=== PATIENT | female | born 1960 | race Caucasian/White ===

== ENCOUNTER 2020-01-12 06:11 | Observation (INO) | payer OTHER, SELFPAY ==
[2020-01-12] VITALS (11 sets, daily range): BP systolic 98–137; BP diastolic 42–77; PULSE 70–87; RESP 12–20; TEMP 36.4–37.2; O2SAT 92–98; BMI 54.3; BMI 42.4
--- NOTE | 2020-01-12 06:26 | XR_ITS ---
EXAMINATION: XR CHEST CLINICAL INFORMATION: Chest pain COMPARISON: 06/25/2018 TECHNIQUE: Frontal view of the chest was obtained. FINDINGS: Lung volumes are symmetric. No acute consolidation is seen. Mild opacity in the medial right lung base is favored to reflect prominent pericardial fat and atelectasis, as seen on recent abdominal CT 12/14/2019. No evidence of pneumothorax, pleural effusion, or pulmonary edema. The cardiomediastinal contour is unremarkable. No acute osseous findings are seen. IMPRESSION: No acute cardiopulmonary findings.
--- NOTE | 2020-01-12 06:27 | ECG_ITS ---
Test Reason : CHEST PAIN Blood Pressure : / mmHG Vent. Rate : 082 BPM Atrial Rate : 082 BPM P-R Int : 168 ms QRS Dur : 080 ms QT Int : 402 ms P-R-T Axes : 062 057 047 degrees QTc Int : 469 ms Normal sinus rhythm RSR' or QR pattern in V1 suggests right ventricular conduction delay Borderline ECG When compared to EKG done on 28-Dec-2018 No significant changes seen Referred By: Generic ED Physician Electronically Signed By:ELANA GOMEZ MD
[2020-01-12 06:55] LABS: MANUAL DIFF FLAG NO
[2020-01-12 07:02] LABS: Basophils Percent Auto 0.7 % (0-2); Eosinophils Absolute Auto 0.1 X10*3/uL (0.0-0.4); Hemoglobin 10.4 g/dl (12.0-16.0); Imm Gran Abs Auto 0.02 X10*3/uL (0.00-0.03); Imm Gran Pct Auto 0.3 % (0.0-0.4); Lymphocytes Percent Auto 32.7 % (20-40); Mean Corpuscular HGB Conc 33.5 g/dl (31.0-35.0); Mean Corpuscular Hemoglobin 29.3 pg (27.0-33.0); Mean Corpuscular Volume 87.3 fL (80-98); Monocytes Absolute Auto 0.4 X10*3/uL (0.1-1.2); Monocytes Percent Auto 7.2 % (2-11); Neutrophils Absolute Auto 3.5 X10*3/uL (2.0-8.3); Neutrophils Percent Auto 57.1 % (45-73); Platelet Count 167 X10*3/uL (160-400); Red Blood Count 3.55 X10*6/uL (4.20-5.50); Red Cell Distribution Width 14.8 % (11.0-16.0); White Blood Count 6.1 X10*3/uL (4.8-10.8)
[2020-01-12] MEDS: Magnesium Hydrox/Alum Hydrox 30 ML ORAL.SUSP PO (07:05)
[2020-01-12] MEDS: Famotidine/PF 20 MG/2 ML VIAL IVPUSH (07:05)
[2020-01-12] MEDS: 0.9 % Sodium Chloride 1,000 ML 999 ML IVCONT (07:06)
--- NOTE | 2020-01-12 07:17 | PC.NURSE ---
pt in nad, medicated per emar, awaiting lab results. wctm.
[2020-01-12 07:26] LABS: Anion Gap 12 (12-20); Blood Urea Nitrogen 24 mg/dL (9-16); Calcium 8.8 mg/dL (8.4-10.2); Carbon Dioxide 24 mmol/L (22-29); Chloride 104 mmol/L (96-108); Creatinine Clr Calc Pharmacy 52.7; Estimated Glomerular Filt Rate 42; Glucose Random 139 mg/dL (60-115); Potassium 3.8 mmol/l (3.3-5.1); Sodium 136 mmol/L (135-145)
[2020-01-12 07:33] LABS: Troponin-I High Sensitivity < 3.5 ng/L (<3.5-17.0)
--- NOTE | 2020-01-12 07:42 | PC.NURSE ---
EKG done by [facility] #: [id number].
--- NOTE | 2020-01-12 09:16 | CT_ITS ---
EXAMINATION: CT ANGIOGRAM OF THE CHEST WITH AND WITHOUT CONTRAST (CT PULMONARY ANGIOGRAM FOR PE) CLINICAL INFORMATION: Reason for Exam sob and hypoxia COMPARISON: Chest radiograph from today TECHNIQUE: Prior to contrast administration, noncontrast localization images were obtained. Subsequently, multidetector volumetric imaging was performed from the thoracic inlet to below the diaphragms following the administration of 65 mL Omnipaque 350 intravenous contrast. No contrast reaction reported Sagittal, coronal, and MIP oblique sagittal reformatted images were obtained on the CT workstation, uploaded to PACS, and reviewed. This CT examination was performed using dose optimization techniques as appropriate, variously including the following: *Automated exposure control *Adjustment of mA and/or kV according to patient size (this includes techniques or standardized protocols for targeted exams where dose is matched to indication/reason for exam; i.e. extremities or head) *Use of iterative reconstruction technique Total exam dose-length product 419 mGy-cm FINDINGS: QUALITY OF STUDY/CONTRAST BOLUS: Satisfactory. PULMONARY ARTERIES: No central or segmental pulmonary emboli. THORACIC AORTA: No aneurysm or dissection. LUNG: Motion limits evaluation. The central airways are patent. Peripheral groundglass opacity noted in the left upper lobe. Minimal consolidation with air bronchograms noted. PLEURA: No pleural effusion or pneumothorax. MEDIASTINUM: Normal heart size. No pericardial effusion. No hilar or mediastinal lymphadenopathy. No evidence of septal bowing or right heart strain. CHEST WALL/AXILLA: No axillary or internal mammary lymphadenopathy. OSSEOUS STRUCTURES: No acute or suspicious osseous abnormality. Degenerative changes of the spine. UPPER ABDOMEN: Unremarkable. No reflux of contrast into the hepatic veins to suggest elevated right heart pressures. IMPRESSION: 1. No pulmonary embolism. 2. Peripheral minimal groundglass opacity of the left upper lobe. This could be infectious or inflammatory. Minimal right middle lobe opacity favors atelectasis. VTE: negative
--- NOTE | 2020-01-12 09:20 | ED.ABDPAIN ---
HPI - Abdominal Pain General Chief Complaint: Chest Pain Stated Complaint: ESOPHAGUS Time Seen by Provider: 01/12/20 06:53 Source: patient Mode of arrival: ambulatory Limitations: no limitations History of Present Illness MD elicited complaint: abdominal pain Pertinent past history: other ( history of esophagitis) Onset (ago): day(s) (1) Pain Consistency: constant Location: epigastric Severity: moderate Quality: dull Radiation: none Migration to: no migration Exacerbating factors: nothing Relieving factors: nothing Associated symptoms: denies other symptoms and nausea Related Data Allergies Allergy/AdvReac Type Severity Reaction Status Date / Time hydrocodone [From Vicodin] Allergy Mild ITCHING Verified 01/12/20 06:30 SHANAE Inhibitors Allergy Unknown UNKNOWN Verified 01/12/20 06:30 [SHANAE INHIBITORS] acetaminophen [Vicodin] Allergy Unknown Unknown Verified 01/12/20 06:30 ENVIROMENTAL Allergy Mild HAYFEVER Uncoded 12/15/19 16:01 [place] Allergy Unknown NEPHROPATHY Uncoded 09/28/19 00:00 Vicodin Allergy Unknown Unknown Uncoded 01/12/20 06:30 yeast Allergy Unknown Unknown Uncoded 01/12/20 06:30 Review of Systems Review of Systems Yes all other systems are reviewed and are negative and Other ( no recent travel, no recent prolonged immobilization, no swelling LE.) Cardiovascular: Reports no additional cardiovascular complaints Respiratory: Reports no additional respiratory complaints Gastrointestinal: Reports no additional gastrointestinal complaints Genitourinary: Reports no additional female genitourinary complaints Musculoskeletal: Reports no additional musculoskeletal complaints Reports system reviewed and no additional complaints, except as documented Physical Exam Vital Signs: Vital Signs: Vital Signs Temp Pulse Resp BP Pulse Ox 01/12/20 12:00 98.3 F 87 14 129/56 L 97 01/12/20 06:32 98 F 83 18 98/44 L 96 Body Mass Index 54.3 Const: General: cooperative and healthy appearing Orientation/consciousness: oriented to person HENMT: Head: Yes normal to inspection and Yes No palpable skull fracture present Eyes: General: appearance normal, both eyes and all related structures Neck: Neck: Yes normal visual inspection Chest: Chest palpation & inspection: normal inspection of the chest Resp: Effort & Inspection: normal respiratory effort Cardio: Jugular venous distension: no JVD GI: Inspection: Yes normal to inspection Palpation (GI): Tenderness to palpation present (GI) in the epigastrum Percussion: Yes normal to percussion : General: Yes no CVA tenderness Back/Spine/Pelvis: Back: no CVA tenderness Skin: General skin exam: no rashes or lesions noted Neuro: General: oriented to person Cranial nerves: Yes CN's II-XII intact bilaterally Cognition (Neuro): normal cognition Motor exam (neuro): 5/5 motor strength present throughout Sensory Exam: Normal double simultaneous stimulation for sensation Course Course Course Narrative: 59-YEAR-OLD FEMALE CAME IN WITH EPIGASTRIC PAIN with a history of esophagitis, patient had unremarkable labs, and felt better with GI cocktail, patient tried to walk to the bathroom felt short of breath and her O2 saturation went down to 78% patient declined any upper respiratory symptoms or any history of exertional dyspnea, in light of acute surge of COVID 19 outbreak and a negative CTA/D-dimer patient will get admitted for COVID pneumonia with hypoxia Reevaluation(s) Reevaluation #1: findings were discussed with the patient patient will get admitted. Patient appears stable. MDM - Abdominal Pain Differential Diagnosis Differential diagnosis: Likely abdominal pain and gastritis Differential diagnosis narrative:: COVID-19 pneumonia. Esophagitis. Medical Records Attestation: I reviewed the patient's medical records. Lab Data Attestation: I reviewed the patient's lab results. Result diagrams: 01/12/20 06:51 01/12/20 06:51 Labs: Lab Results 01/12/20 01/12/20 01/12/20 Range/Units 06:51 06:51 06:51 WBC 6.1 (4.8-10.8) X10*3/uL RBC 3.55 L (4.20-5.50) X10*6/uL Hgb 10.4 L (12.0-16.0) g/dl Hct 31.0 L (37-47) % MCV 87.3 (80-98) fL MCH 29.3 (27.0-33.0) pg MCHC 33.5 (31.0-35.0) g/dl RDW 14.8 (11.0-16.0) % Plt Count 167 (160-400) X10*3/uL MPV 9.0 L (9.4-12.3) fL Immature Gran % (Auto) 0.3 (0.0-0.4) % Neut % (Auto) 57.1 (45-73) % Lymph % (Auto) 32.7 (20-40) % [place] % (Auto) 7.2 (2-11) % Eos % (Auto) 2.0 (0-4) % Baso % (Auto) 0.7 (0-2) % Lymph # (Auto) 2.0 (1.2-4.9) X10*3/uL [place] # (Auto) 0.4 (0.1-1.2) X10*3/uL Eos # (Auto) 0.1 (0.0-0.4) X10*3/uL Baso # (Auto) 0.0 (0.0-0.2) X10*3/uL Abs Immat Gran (auto) 0.02 (0.00-0.03) X10*3/uL Absolute Neuts (auto) 3.5 (2.0-8.3) X10*3/uL Absolute Nucleated RBC 0.000 (0.0-0.012) X10*3/uL Nucleated RBC % (auto) 0.0 (0.0-0.2) /100WBC D-Dimer < 200 NG/ML Hold Blue Top SEE NOTE Sodium 136 (135-145) mmol/L Potassium 3.8 (3.3-5.1) mmol/l Chloride 104 (96-108) mmol/L Carbon Dioxide 24 (22-29) mmol/L Anion Gap 12 (12-20) BUN 24 H (9-16) mg/dL Creatinine 1.30 (0.5-1.4) mg/dL Estim Creat Clear Calc 52.7 Estimated GFR 42 Random Glucose 139 H (60-115) mg/dL Calcium 8.8 (8.4-10.2) mg/dL Troponin I High Sens (<3.5-17.0) ng/L 01/12/20 01/12/20 Range/Units 06:51 08:52 WBC (4.8-10.8) X10*3/uL RBC (4.20-5.50) X10*6/uL Hgb (12.0-16.0) g/dl Hct (37-47) % MCV (80-98) fL MCH (27.0-33.0) pg MCHC (31.0-35.0) g/dl RDW (11.0-16.0) % Plt Count (160-400) X10*3/uL MPV (9.4-12.3) fL Immature Gran % (Auto) (0.0-0.4) % Neut % (Auto) (45-73) % Lymph % (Auto) (20-40) % [place] % (Auto) (2-11) % Eos % (Auto) (0-4) % Baso % (Auto) (0-2) % Lymph # (Auto) (1.2-4.9) X10*3/uL [place] # (Auto) (0.1-1.2) X10*3/uL Eos # (Auto) (0.0-0.4) X10*3/uL Baso # (Auto) (0.0-0.2) X10*3/uL Abs Immat Gran (auto) (0.00-0.03) X10*3/uL Absolute Neuts (auto) (2.0-8.3) X10*3/uL Absolute Nucleated RBC (0.0-0.012) X10*3/uL Nucleated RBC % (auto) (0.0-0.2) /100WBC D-Dimer NG/ML Hold Blue Top Sodium (135-145) mmol/L Potassium (3.3-5.1) mmol/l Chloride (96-108) mmol/L Carbon Dioxide (22-29) mmol/L Anion Gap (12-20) BUN (9-16) mg/dL Creatinine (0.5-1.4) mg/dL Estim Creat Clear Calc Estimated GFR Random Glucose (60-115) mg/dL Calcium (8.4-10.2) mg/dL Troponin I High Sens < 3.5 < 3.5 (<3.5-17.0) ng/L ECG Data Attestation: I personally reviewed and interpreted this ECG as follows: Ischemic changes: other ( Normal sinus rhythm at 82 beats per minutes, no ST-T changes, normal axis.) Discharge Plan Discharge Clinical Impression: Acute epigastric pain, Esophagitis, Hypoxia Patient Disposition: Admitted As Inpatient [facility] Past Medical History Attestation statement: The following information was validated with the patient. Medical History (Updated 01/12/20 @ 12:40 by Jossie Muhammad MD) Asthma COPD (chronic obstructive pulmonary disease) Diabetes Renal failure Seizures Social History Social History Alcohol intake: never Smoking Status: Light tobacco smoker Use of substances other than those prescribed or required for medical reasons: No Advance Directives: No Advance Directives Information Provided: No
[2020-01-12 09:32] LABS: Troponin-I High Sensitivity < 3.5 ng/L (<3.5-17.0)
[2020-01-12 10:38] LABS: D Dimer < 200 NG/ML
[2020-01-12] MEDS: iohexoL 350 MG/ML 100 ML INFUS..BTL IV (10:58)
--- NOTE | 2020-01-12 12:09 | PC.NURSE ---
INTRODUCED SELF TO PT. DRY COUGH, SPO2 DOWN TO 86% ON RA WITH GOOD SPO2 WAVEFORM, PLACED ON 3L O2. NOW ON 1L O2. PT DENIES ANY PAIN, FEVERS, DIZZINESS. SKIN PWD. SPEAKING IN CLEAR FULL SENTENCES. RESP E3VEN BUT SLIGHTLY LABOURED, PT CONFIRMS FEELING SOB.
--- NOTE | 2020-01-12 12:12 | PC.NURSE ---
SLIGHT WHEEZING HEARD IN LOWER LOBES BILAT, UPPER LOBES DIMINISHED.
[2020-01-12 13:03] LABS: Alanine Aminotransferase 10 U/L (0-31); Albumin Level 3.6 g/dL (3.5-5.0); Alkaline Phosphatase 97 U/L (39-117); Aspartate Amino Transferase 11 U/L (5-31); Bilirubin Direct < 0.2 mg/dL (0.0-0.5); Bilirubin Total 0.4 mg/dL (0.0-1.0); Lipase 34 U/L (8-78); Total Protein 6.2 g/dL (6.5-8.0)
[2020-01-12 13:38] LABS: SARS COV2 PCR INHOUSE NEGATIVE (Negative)
[2020-01-12 14:00] LABS: Alanine Aminotransferase 10 U/L (0-31); Albumin Level 3.6 g/dL (3.5-5.0); Alkaline Phosphatase 93 U/L (39-117); Aspartate Amino Transferase 13 U/L (5-31); Bilirubin Direct < 0.2 mg/dL (0.0-0.5); Bilirubin Total 0.2 mg/dL (0.0-1.0); C Reactive Protein 1.29 mg/dL (< or = 0.50); Lactate Dehydrogenase 126 U/L (122-220); Lipase 34 U/L (8-78); Total Protein 6.5 g/dL (6.5-8.0)
[2020-01-12 14:20] LABS: Ferritin 18 ng/mL (10-250)
[2020-01-12 14:31] LABS: Procalcitonin 0.08 ng/mL
--- NOTE | 2020-01-12 14:37 | PC.NURSE ---
PAIN DENIES ANY PAIN, AWARE OF PLAN FOR ADMISSION. PHARMACY TO BE CALLED FOR MED REC
--- NOTE | 2020-01-12 14:41 | PM.EVENT ---
Event Note Event Note: Patient seen and examined independently and was present during mancini portion of E/M service. Agree with midlevel's history, physical, assessment, and plan. 59F presented with sob and abdominal pain acute hyopxic respiratory failure due to copd exacerbation steroid, bronchidilators, check abg, viral panel covid negative
--- NOTE | 2020-01-12 14:48 | PC.NURSE ---
RT CALLED FOR ABGS
[2020-01-12 15:04] LABS: Pt Ventilation O2% 1 L
[2020-01-12 15:16] LABS: ABG PCO2 47 mmhg (32-45); Base Excess ABG -4.3; HCO3 ABG 22 mmol/l (22-26); PO2 ABG 111 mmhg (83-108)
[2020-01-12 15:17] LABS: Blood Gas Serial # 5414; Oxygen Saturation ABG 97.5 %
--- NOTE | 2020-01-12 15:43 | P.HPIM_ITS ---
History of Present Illness Date of Service: 01/12/20 <YUDITH De Paz - Last Filed: 01/12/20 15:54> Chief Complaint: Epigastric abdominal pain <YUDITH De Paz - Last Filed: 01/12/20 15:54> this is a 59-year-old female with multiple medical problems who presented to the emergency department with complaints of epigastric abdominal pain. her EKG was unremarkable in cardiac enzymes were negative. However while in the emergency department she became hypoxic after ambulating back from the bathroom. Her oxygen saturation dropped to 86% on room air. D-dimer was unremarkable. She underwent CTA which showed minimal ground-glass opacity in the left upper lobe. Lab work was unremarkable. patient reports she always has a smoker's cough. she does not complain of any significant shortness of breath. She denies any associated fever or chills. She does report that her daughter was recently diagnosed with bronchitis and was tested for coronavirus but the results is still pending. Patient had a rapid COVID swab in the ED which was negative. Given episode of hypoxia and the decision was made to admit her for management. <YUDITH De Paz - Last Filed: 01/12/20 15:54> Review of Systems Review of Systems: Yes all other systems are reviewed and are negative <YUDITH De Paz - Last Filed: 01/12/20 15:54> Constitutional: Constitutional: Denies chills and Denies fever(s) <YUDITH De Paz - Last Filed: 01/12/20 15:54> Cardiovascular: Cardiovascular: Denies chest pain <YUDITH De Paz Last Filed: 01/12/20 15:54> Respiratory: Respiratory: Reports cough <YUDITH De Paz - Last Filed: 01/12/20 15:54> Gastrointestinal: Gastrointestinal: Denies abdominal pain <YUDITH De Paz - Last Filed: 01/12/20 15:54> [facility] Medical History: Medical History Asthma COPD (chronic obstructive pulmonary disease) Diabetes GERD (gastroesophageal reflux disease) History of migraine Hyperlipidemia Hypertension Osteoarthritis Renal failure Restless leg syndrome Seizures TIA (transient ischemic attack) <YUDITH De Paz - Last Filed: 01/12/20 15:54> Pertinent family history: mother and father had a history of diabetes <YUDITH De Paz - Last Filed: 01/12/20 15:54> Surgical History: Surgical History History of appendectomy History of carpal tunnel release History of cholecystectomy Hx of total knee arthroplasty <YUDITH De Paz - Last Filed: 01/12/20 15:54> Social History: Social History Alcohol intake: never Smoking Status: Current every day smoker Tobacco Type: Cigarette Packs Per Day: 1 Cigarettes Per Day: 20.0 Smoked in Last 30 Days: Yes Patient Interested in Nicotine Replacement: No Use of substances other than those prescribed or required for medical reasons: No Advance Directives: No Advance Directives Information Provided: No service: No Current occupational status: disabled <YUDITH De Paz - Last Filed: 01/12/20 15:54> Meds Allergies/Adverse reactions: Allergies Allergy/AdvReac Type Severity Reaction Status Date / Time hydrocodone [From Vicodin] Allergy Mild ITCHING Verified 01/12/20 06:30 SHANAE Inhibitors Allergy Unknown UNKNOWN Verified 01/12/20 06:30 [SHANAE INHIBITORS] acetaminophen [Vicodin] Allergy Unknown Unknown Verified 01/12/20 06:30 ENVIROMENTAL Allergy Mild HAYFEVER Uncoded 12/15/19 16:01 [place] Allergy Unknown NEPHROPATHY Uncoded 09/28/19 00:00 Vicodin Allergy Unknown Unknown Uncoded 01/12/20 06:30 yeast Allergy Unknown Unknown Uncoded 01/12/20 06:30 <YUDITH De Paz - Last Filed: 01/12/20 15:54> Home medications: Home Medications Medication Instructions Recorded Confirmed Type Flovent HFA 2 puff INHALATION BID 01/12/20 01/12/20 History Januvia 1 tab PO QAM 01/12/20 01/12/20 History Lantus Solostar U-100 Insulin 30 unit SUBCUT BEDTIME 01/12/20 01/12/20 History amlodipine 1 tab PO BEDTIME 01/12/20 01/12/20 History ascorbic acid (vitamin C) [Vitamin 1 tab PO BID 01/12/20 01/12/20 History C] aspirin 1 tab PO BEDTIME 01/12/20 01/12/20 History atorvastatin 1 tab PO BEDTIME 01/12/20 01/12/20 History calcium carbonate-vitamin D3 1 tab PO BID 01/12/20 01/12/20 History cetirizine 1 tab PO QAM 01/12/20 01/12/20 History cholecalciferol (vitamin D3) 1 cap PO QAM 01/12/20 01/12/20 History citalopram 1 tab PO QAM 01/12/20 01/12/20 History fluticasone propionate 2 spray INTRANASAL DAILY 01/12/20 01/12/20 History gabapentin 1 cap PO TID 01/12/20 01/12/20 History insulin aspart U-100 [Novolog See Protocol SUBCUT TID 01/12/20 01/12/20 History Flexpen U-100 Insulin] olmesartan 1 tab PO QAM 01/12/20 01/12/20 History omeprazole 1 cap PO QAM 01/12/20 01/12/20 History oxcarbazepine 1 tab PO BID 01/12/20 01/12/20 History oxybutynin chloride 1 tab PO QAM 01/12/20 01/12/20 History topiramate 1 tab PO BID 01/12/20 01/12/20 History <YUDITH De Paz - Last Filed: 01/12/20 15:54> Physical Exam Vital Signs and Narrative: Vital Signs: Last Vital Signs Temp 98.9 F 01/12/20 14:36 Pulse 87 01/12/20 14:36 Resp 16 01/12/20 14:36 BP 115/42 L 01/12/20 14:36 Pulse Ox 98 01/12/20 14:36 Body Mass Index 54.3 <YUDITH De Paz - Last Filed: 01/12/20 15:54> Const: Nutritional Appearance: obese <YUDITH De Paz - Last Filed: 01/12/20 15:54> Orientation/consciousness: patient oriented x3 <YUDITH De Paz - Last Filed: 01/12/20 15:54> HENMT: Head: Yes normocephalic and Yes atraumatic <YUDITH De Paz - Last Filed: 01/12/20 15:54> Eyes: Sclerae: sclerae normal <YUDITH De Paz - Last Filed: 01/12/20 15:54> Chest: Chest palpation & inspection: normal inspection of the chest <YUDITH De Paz - Last Filed: 01/12/20 15:54> Resp: Auscultation: wheezes expiratory wheezes <YUDITH De Paz - Last Filed: 01/12/20 15:54> Cardio: Rate: regular rate <YUDITH De Paz - Last Filed: 01/12/20 15:54> Rhythm: regular rhythm <YUDITH De Paz - Last Filed: 01/12/20 15:54> GI: Palpation (GI): Soft to palpation and nontender <YUDITH De Paz - Last Filed: 01/12/20 15:54> Skin: General skin exam: no rashes or lesions noted <YUDITH De Paz - Last Filed: 01/12/20 15:54> Neuro: General: patient oriented x3 <YUDITH De Paz - Last Filed: 01/12/20 15:54> Cranial nerves: Yes CN's II-XII intact bilaterally and Yes Bilaterally intact EOM present <YUDITH De Paz - Last Filed: 01/12/20 15:54> Extrem: General: Yes normal to inspection <YUDITH De Paz - Last Filed: 01/12/20 15:54> Results Labs Labs: Laboratory Tests 01/12/20 01/12/20 01/12/20 06:51 06:51 06:51 WBC 6.1 RBC 3.55 L Hgb 10.4 L Hct 31.0 L MCV 87.3 MCH 29.3 MCHC 33.5 RDW 14.8 Plt Count 167 MPV 9.0 L Immature Gran % (Auto) 0.3 Neut % (Auto) 57.1 Lymph % (Auto) 32.7 [place] % (Auto) 7.2 Eos % (Auto) 2.0 Baso % (Auto) 0.7 Lymph # (Auto) 2.0 [place] # (Auto) 0.4 Eos # (Auto) 0.1 Baso # (Auto) 0.0 Abs Immat Gran (auto) 0.02 Absolute Neuts (auto) 3.5 Absolute Nucleated RBC 0.000 Nucleated RBC % (auto) 0.0 D-Dimer < 200 Hold Blue Top SEE NOTE ABG pH ABG pCO2 ABG pO2 ABG HCO3 ABG O2 Saturation ABG Base Excess Oxygen Given Sodium 136 Potassium 3.8 Chloride 104 Carbon Dioxide 24 Anion Gap 12 BUN 24 H Creatinine 1.30 Estim Creat Clear Calc 52.7 Estimated GFR 42 Random Glucose 139 H Calcium 8.8 Ferritin 18 Total Bilirubin 0.2 Direct Bilirubin < 0.2 AST 13 ALT 10 Alkaline Phosphatase 93 Lactate Dehydrogenase 126 Troponin I High Sens C-Reactive Protein 1.29 H Total Protein 6.5 Albumin 3.6 Lipase 34 Procalcitonin Coronavirus (PCR) 01/12/20 01/12/20 01/12/20 06:51 08:52 12:14 WBC RBC Hgb Hct MCV MCH MCHC RDW Plt Count MPV Immature Gran % (Auto) Neut % (Auto) Lymph % (Auto) [place] % (Auto) Eos % (Auto) Baso % (Auto) Lymph # (Auto) [place] # (Auto) Eos # (Auto) Baso # (Auto) Abs Immat Gran (auto) Absolute Neuts (auto) Absolute Nucleated RBC Nucleated RBC % (auto) D-Dimer Hold Blue Top ABG pH ABG pCO2 ABG pO2 ABG HCO3 ABG O2 Saturation ABG Base Excess Oxygen Given Sodium Potassium Chloride Carbon Dioxide Anion Gap BUN Creatinine Estim Creat Clear Calc Estimated GFR Random Glucose Calcium Ferritin Total Bilirubin Direct Bilirubin AST ALT Alkaline Phosphatase Lactate Dehydrogenase Troponin I High Sens < 3.5 < 3.5 C-Reactive Protein Total Protein Albumin Lipase Procalcitonin Coronavirus (PCR) NEGATIVE 01/12/20 01/12/20 01/12/20 12:15 13:46 14:55 WBC RBC Hgb Hct MCV MCH MCHC RDW Plt Count MPV Immature Gran % (Auto) Neut % (Auto) Lymph % (Auto) [place] % (Auto) Eos % (Auto) Baso % (Auto) Lymph # (Auto) [place] # (Auto) Eos # (Auto) Baso # (Auto) Abs Immat Gran (auto) Absolute Neuts (auto) Absolute Nucleated RBC Nucleated RBC % (auto) D-Dimer Hold Blue Top ABG pH 7.30 L ABG pCO2 47 H ABG pO2 111 H ABG HCO3 22 ABG O2 Saturation 97.5 ABG Base Excess -4.3 Oxygen Given 1 L Sodium Potassium Chloride Carbon Dioxide Anion Gap BUN Creatinine Estim Creat Clear Calc Estimated GFR Random Glucose Calcium Ferritin Total Bilirubin 0.4 Direct Bilirubin < 0.2 AST 11 ALT 10 Alkaline Phosphatase 97 Lactate Dehydrogenase Troponin I High Sens C-Reactive Protein Total Protein 6.2 L Albumin 3.6 Lipase 34 Procalcitonin 0.08 Coronavirus (PCR) <YUDITH De Paz - Last Filed: 01/12/20 15:54> Assessment and Plan (1) Acute respiratory failure with hypoxia: Status: Acute <YUDITH De Paz - Last Filed: 01/12/20 15:54> this is a 59-year-old female with history of diabetes, hypertension, hyperlipidemia, seizure disorder who presented to the emergency department with epigastric abdominal pain found to have be hypoxic acute respiratory failure with hypoxia O2 saturation dropped to 86% on room air likely multifactorial and related to COPD exacerbation and body habitus given morbid obesity with BMI 54.3 COVID-19 negative COPD exacerbation scheduled and as needed breathing treatments Solu-Medrol supplemental oxygen as needed tobacco dependence smoking cessation advised nicotine replacement therapy diabetes continue home dose of Lantus SSI, POC hypertension continue Norvasc, formulary equivalent for olmesartan dyslipidemia continue statin mood continue Celexa seizure disorder continue Trileptal seizure precautions restless leg syndrome continue gabapentin DVT prophylaxis- heparin code status- full code this case was discussed with Dr. Stafford <YUDITH De Paz - Last Filed: 01/12/20 15:54>
--- NOTE | 2020-01-12 15:43 | PC.NURSE ---
meds confirmed with pt. pt resting comfortably at this time. denies pain, sob at this time. aware of plan for care.
--- NOTE | 2020-01-12 16:32 | PC.NURSE ---
called up to c
--- NOTE | 2020-01-12 17:18 | PC.NURSE ---
pt ambulated to bathroom independently.
--- NOTE | 2020-01-12 17:32 | PC.NURSE ---
report given to guadalupe
[2020-01-12 18:55] LABS: Glucose, Whole Blood 106 mg/dL (60-115)
[2020-01-12] MEDS: Albuterol/Iprat 2.5/0.5MG 3 ML AMPUL.NEB INHALE (20:00)
[2020-01-12] MEDS: Atorvastatin Calcium 40 MG TABLET PO (20:01)
[2020-01-12] MEDS: Gabapentin 400 MG CAPSULE PO (20:02)
[2020-01-12] MEDS: Ascorbic Acid 500 MG TABLET PO (20:02)
[2020-01-12] MEDS: Aspirin Enteric Coated 81 MG TABLET.DR PO (20:02)
[2020-01-12] MEDS: amLODIPine Besylate 10 MG TABLET PO (20:02)
[2020-01-12] MEDS: 0.9 % Sodium Chloride Flush 3 ML SYRINGE IVFLUSH ×2 (20:04→23:47)
[2020-01-12] MEDS: Heparin Sodium,Porcine 5,000 UNIT/ML VIAL 5000 UNIT SUBCUT (20:06)
[2020-01-12 21:20] LABS: Glucose, Whole Blood 136 mg/dL (60-115)
[2020-01-12] MEDS: Topiramate 25 MG TABLET 50 MG PO (21:49)
[2020-01-12] MEDS: OXcarbazepine 150 MG TABLET PO (21:49)
[2020-01-13 04:00] VITALS: BP 126/58; PULSE 74; RESP 20; TEMP 36.7; O2SAT 95
[2020-01-13 05:39] LABS: Basophils Percent Auto 0.3 % (0-2); Eosinophils Percent Auto 0.3 % (0-4); Hematocrit 32.5 % (37-47); Hemoglobin 10.5 g/dl (12.0-16.0); Imm Gran Abs Auto 0.01 X10*3/uL (0.00-0.03); Imm Gran Pct Auto 0.3 % (0.0-0.4); Lymphocytes Absolute Auto 0.5 X10*3/uL (1.2-4.9); Lymphocytes Percent Auto 13.4 % (20-40); MANUAL DIFF FLAG SCAN; Mean Corpuscular HGB Conc 32.3 g/dl (31.0-35.0); Mean Corpuscular Hemoglobin 28.7 pg (27.0-33.0); Mean Corpuscular Volume 88.8 fL (80-98); Mean Platelet Volume 9.3 fL (9.4-12.3); Monocytes Absolute Auto 0.1 X10*3/uL (0.1-1.2); Monocytes Percent Auto 2.1 % (2-11); Neutrophils Absolute Auto 2.8 X10*3/uL (2.0-8.3); Neutrophils Percent Auto 83.6 % (45-73); Platelet Count 160 X10*3/uL (160-400); Red Blood Count 3.66 X10*6/uL (4.20-5.50); Red Cell Distribution Width 14.7 % (11.0-16.0); SCAN SMEAR FLAG 1; White Blood Count 3.4 X10*3/uL (4.8-10.8)
[2020-01-13 06:05] LABS: Anion Gap 12 (12-20); Blood Urea Nitrogen 20 mg/dL (9-16); Calcium 8.8 mg/dL (8.4-10.2); Carbon Dioxide 20 mmol/L (22-29); Chloride 108 mmol/L (96-108); Creatinine Clr Calc Pharmacy 51.4; Estimated Glomerular Filt Rate 49; Glucose Random 201 mg/dL (60-115); Potassium 4.7 mmol/l (3.3-5.1); Sodium 135 mmol/L (135-145)
[2020-01-13 06:13] LABS: SLIDE REVIEW VERIFIED
[2020-01-13] MEDS: Omeprazole 20 MG CAPSULE.DR PO (06:28)
[2020-01-13 07:34] LABS: Glucose, Whole Blood 143 mg/dL (60-115)
[2020-01-13] MEDS: Albuterol/Iprat 2.5/0.5MG 3 ML AMPUL.NEB INHALE ×2 (07:56→11:48)
[2020-01-13 08:00] VITALS: BP 116/56; PULSE 74; RESP 18; TEMP 36.4; O2SAT 95
--- NOTE | 2020-01-13 08:42 | MHC.CM.PN ---
Patient lives alone in an apartment but her Daughter will be staying with her at time of dc to assist her. Patient does NOT use O2 @ home and she receives 16 hours/week of [facility] services. Patient has a power chair for distance and a cane and walker. Patient's goal is to return home and CM has initiated and will follow for dc planning.IMM addressed with Patient and original has been given to her and a copy has been placed on the chart.
[2020-01-13] MEDS: Topiramate 25 MG TABLET 50 MG PO (09:27)
[2020-01-13] MEDS: Nicotine 14 MG PATCH.TD24 TRANSDERMA (09:27)
[2020-01-13] MEDS: Valsartan 160 MG TABLET PO (09:27)
[2020-01-13] MEDS: Ascorbic Acid 500 MG TABLET PO (09:27)
[2020-01-13] MEDS: Escitalopram Oxalate 10 MG TABLET PO (09:27)
[2020-01-13] MEDS: OXcarbazepine 150 MG TABLET PO (09:27)
[2020-01-13] MEDS: Gabapentin 400 MG CAPSULE PO (09:27)
[2020-01-13] MEDS: Heparin Sodium,Porcine 5,000 UNIT/ML VIAL 5000 UNIT SUBCUT (09:28)
[2020-01-13] MEDS: 0.9 % Sodium Chloride Flush 3 ML SYRINGE IVFLUSH (09:29)
[2020-01-13] MEDS: Fluticasone Propionate Nasal 16 GM SPRAY 2 SPRAY NOSTRIL-B (09:38)
[2020-01-13] MEDS: Loratadine 10 MG TABLET PO (09:55)
[2020-01-13 10:15] VITALS: O2SAT 92
--- NOTE | 2020-01-13 10:46 | PM.DS ---
DS: Providers Provider Date of admission: 01/12/20 15:41 Primary care physician: Inez Dewitt NP DS: Diagnosis Discharge Diagnosis (1) Acute respiratory failure with hypoxia: Status: Acute DS: Summary Hospital Course Hospital Course: from initial h and p 59-year-old female with multiple medical problems who presented to the emergency department with complaints of epigastric abdominal pain. her EKG was unremarkable in cardiac enzymes were negative. However while in the emergency department she became hypoxic after ambulating back from the bathroom. Her oxygen saturation dropped to 86% on room air. D-dimer was unremarkable. She underwent CTA which showed minimal ground-glass opacity in the left upper lobe. Lab work was unremarkable. patient reports she always has a smoker's cough. she does not complain of any significant shortness of breath. She denies any associated fever or chills. She does report that her daughter was recently diagnosed with bronchitis and was tested for coronavirus but the results is still pending. Patient had a rapid COVID swab in the ED which was negative. Given episode of hypoxia and the decision was made to admit her for management. hospital course: Patient was admitted for acute hypoxic respiratory failure likely secondary to COPD/ asthma exacerbation. She was given steroids and bronchodilators and symptoms significantly improved. Patient was able to ambulate without significant hypoxia and without significant symptoms. She will be discharged home on 5 more days of p.o. prednisone. Time Spent with Patient Time attestation: Total time spent providing and/or coordinating discharge services: Physical Exam Vital Signs: Vital Signs: Vital Signs Temp Pulse Resp BP Pulse Ox 01/13/20 10:15 92 01/13/20 08:00 97.6 F 74 18 116/56 L 95 01/13/20 04:00 98.1 F 74 20 126/58 L 95 01/12/20 23:51 99 F 82 20 137/60 94 01/12/20 19:54 97.6 F 80 20 135/68 96 01/12/20 18:58 70 01/12/20 18:29 98.2 F 76 20 126/58 L 92 01/12/20 17:47 98.4 F 79 18 118/62 92 01/12/20 15:44 77 12 124/77 01/12/20 14:36 98.9 F 87 16 115/42 L 98 01/12/20 12:00 98.3 F 87 14 129/56 L 97 Body Mass Index 42.4 Resp: Other: diminished, slight wheeze, no increased resp effort, speaking full sentences DS: Data Data Completed and Pending Labs on day of discharge: Labs from last 24 hours 01/13/20 01/13/20 01/13/20 07:23 04:33 04:33 WBC 3.4 L RBC 3.66 L Hgb 10.5 L Hct 32.5 L MCV 88.8 MCH 28.7 MCHC 32.3 RDW 14.7 Plt Count 160 MPV 9.3 L Immature Gran % (Auto) 0.3 Neut % (Auto) 83.6 H Lymph % (Auto) 13.4 L [place] % (Auto) 2.1 Eos % (Auto) 0.3 Baso % (Auto) 0.3 Lymph # (Auto) 0.5 L [place] # (Auto) 0.1 Eos # (Auto) 0.0 Baso # (Auto) 0.0 Abs Immat Gran (auto) 0.01 Absolute Neuts (auto) 2.8 Absolute Nucleated RBC 0.000 Nucleated RBC % (auto) 0.0 Smear Tech's Comments VERIFIED ABG pH ABG pCO2 ABG pO2 ABG HCO3 ABG O2 Saturation ABG Base Excess Oxygen Given Sodium 135 Potassium 4.7 D Chloride 108 Carbon Dioxide 20 L Anion Gap 12 BUN 20 H Creatinine 1.14 Estim Creat Clear Calc 51.4 Estimated GFR 49 POC Glucose 143 H Random Glucose 201 H D Calcium 8.8 Ferritin Total Bilirubin Direct Bilirubin AST ALT Alkaline Phosphatase Lactate Dehydrogenase C-Reactive Protein Total Protein Albumin Lipase Procalcitonin Coronavirus (PCR) 01/12/20 01/12/20 01/12/20 21:10 18:51 14:55 WBC RBC Hgb Hct MCV MCH MCHC RDW Plt Count MPV Immature Gran % (Auto) Neut % (Auto) Lymph % (Auto) [place] % (Auto) Eos % (Auto) Baso % (Auto) Lymph # (Auto) [place] # (Auto) Eos # (Auto) Baso # (Auto) Abs Immat Gran (auto) Absolute Neuts (auto) Absolute Nucleated RBC Nucleated RBC % (auto) Smear Tech's Comments ABG pH 7.30 L ABG pCO2 47 H ABG pO2 111 H ABG HCO3 22 ABG O2 Saturation 97.5 ABG Base Excess -4.3 Oxygen Given 1 L Sodium Potassium Chloride Carbon Dioxide Anion Gap BUN Creatinine Estim Creat Clear Calc Estimated GFR POC Glucose 136 H 106 Random Glucose Calcium Ferritin Total Bilirubin Direct Bilirubin AST ALT Alkaline Phosphatase Lactate Dehydrogenase C-Reactive Protein Total Protein Albumin Lipase Procalcitonin Coronavirus (PCR) 01/12/20 01/12/20 01/12/20 13:46 12:15 12:14 WBC RBC Hgb Hct MCV MCH MCHC RDW Plt Count MPV Immature Gran % (Auto) Neut % (Auto) Lymph % (Auto) [place] % (Auto) Eos % (Auto) Baso % (Auto) Lymph # (Auto) [place] # (Auto) Eos # (Auto) Baso # (Auto) Abs Immat Gran (auto) Absolute Neuts (auto) Absolute Nucleated RBC Nucleated RBC % (auto) Smear Tech's Comments ABG pH ABG pCO2 ABG pO2 ABG HCO3 ABG O2 Saturation ABG Base Excess Oxygen Given Sodium Potassium Chloride Carbon Dioxide Anion Gap BUN Creatinine Estim Creat Clear Calc Estimated GFR POC Glucose Random Glucose Calcium Ferritin Total Bilirubin 0.4 Direct Bilirubin < 0.2 AST 11 ALT 10 Alkaline Phosphatase 97 Lactate Dehydrogenase C-Reactive Protein Total Protein 6.2 L Albumin 3.6 Lipase 34 Procalcitonin 0.08 Coronavirus (PCR) NEGATIVE 01/12/20 06:51 WBC RBC Hgb Hct MCV MCH MCHC RDW Plt Count MPV Immature Gran % (Auto) Neut % (Auto) Lymph % (Auto) [place] % (Auto) Eos % (Auto) Baso % (Auto) Lymph # (Auto) [place] # (Auto) Eos # (Auto) Baso # (Auto) Abs Immat Gran (auto) Absolute Neuts (auto) Absolute Nucleated RBC Nucleated RBC % (auto) Smear Tech's Comments ABG pH ABG pCO2 ABG pO2 ABG HCO3 ABG O2 Saturation ABG Base Excess Oxygen Given Sodium Potassium Chloride Carbon Dioxide Anion Gap BUN Creatinine Estim Creat Clear Calc Estimated GFR POC Glucose Random Glucose Calcium Ferritin 18 Total Bilirubin 0.2 Direct Bilirubin < 0.2 AST 13 ALT 10 Alkaline Phosphatase 93 Lactate Dehydrogenase 126 C-Reactive Protein 1.29 H Total Protein 6.5 Albumin 3.6 Lipase 34 Procalcitonin Coronavirus (PCR) Discharge Plan Discharge Patient Disposition: Home, Self-Care Referrals: Inez Dewitt NP [Primary Care Provider] - Discharge Medications: New prednisone 20 mg tablet 40 mg PO DAILY Qty: 10 RF: 0 Continued gabapentin 400 mg capsule 1 cap PO TID RF: 0 oxcarbazepine 150 mg tablet 1 tab PO BID RF: 0 aspirin 81 mg tablet,delayed release (DR/EC) 1 tab PO BEDTIME RF: 0 citalopram 20 mg tablet 1 tab PO QAM RF: 0 ascorbic acid (vitamin C) [Vitamin C] 500 mg tablet 1 tab PO BID RF: 0 amlodipine 10 mg tablet 1 tab PO BEDTIME RF: 0 oxybutynin chloride 5 mg tablet extended release 24hr 1 tab PO QAM RF: 0 omeprazole 20 mg capsule,delayed release(DR/EC) 1 cap PO QAM RF: 0 fluticasone propionate 50 mcg/actuation spray,suspension 2 spray intranasal DAILY RF: 0 Flovent HFA 110 mcg/actuation HFA aerosol inhaler 2 puff inhalation BID RF: 0 olmesartan 40 mg tablet 1 tab PO QAM RF: 0 insulin aspart U-100 [Novolog Flexpen U-100 Insulin] 100 unit/mL (3 mL) insulin pen See Protocol unit subcut TID RF: 0 Januvia 100 mg tablet 1 tab PO QAM RF: 0 calcium carbonate-vitamin D3 600 mg(1,500mg) -400 unit tablet 1 tab PO BID RF: 0 atorvastatin 40 mg tablet 1 tab PO BEDTIME RF: 0 cetirizine 10 mg tablet 1 tab PO QAM RF: 0 topiramate 50 mg tablet 1 tab PO BID RF: 0 Lantus Solostar U-100 Insulin 100 unit/mL (3 mL) insulin pen 30 unit subcut BEDTIME RF: 0 cholecalciferol (vitamin D3) 50 mcg (2,000 unit) capsule 1 cap PO QAM RF: 0 Discharge Orders: Discharge Order (Routine); Ordered 01/13/20 Ordered By: Robert Stafford Activity on Discharge: As tolerated Visit Report Forms: Patient Portal Discharge page Care Plan Goals: recovery Health Concerns: copd/asthma Plan of Treatment: prednisone
--- NOTE | 2020-01-13 11:09 | MHC.CM.PN ---
Patient has been medically cleared for dc to home today, no skilled services ordered. CM addressed [facility] (IMM was given earlier, in error). Patient will return home via [employer] van at 1 PM. Patient is aware of and very pleased with the dc plan.
[2020-01-13 11:42] LABS: Glucose, Whole Blood 158 mg/dL (60-115)
== END 2020-01-13 13:36 | disposition home or self-care (01) ==
LOC: HO.ED 12:59 → HO.IMC 16:31
PROVIDERS: Physician Assistant Medical; Admitting Provider Internal Medicine; Emergency Provider Emergency Medicine; PCP Nurse Practitioner Family; Visit Provider Internal Medicine
DX: J96.01 Acute respiratory failure with hypoxia (principal); R10.13 Epigastric pain; R07.9 Chest pain, unspecified; J44.9 Chronic obstructive pulmonary disease, unspecified; E11.9 Type 2 diabetes mellitus without complications; I10 Essential (primary) hypertension; E78.5 Hyperlipidemia, unspecified; K21.9 Gastro-esophageal reflux disease without esophagitis; F17.200 Nicotine dependence, unspecified, uncomplicated; Z88.6 Allergy status to analgesic agent; Z91.02 Food additives allergy status; Z88.5 Allergy status to narcotic agent; Z88.8 Allergy status to other drugs, medicaments and biological substances; Z91.018 Allergy to other foods; Z11.59 Encounter for screening for other viral diseases; Z79.4 Long term (current) use of insulin; Z79.82 Long term (current) use of aspirin; Z79.899 Other long term (current) drug therapy
CPT/HCPCS: 36415; 71045; 71275; 80048; 80076; 82728; 82803; 82947; 83615; 83690; 84145; 84484; 85025; 85379; 86140; 87635; 93005; 94640; 96361; 96372; 96374; 96375; 99219; 99285; J2920

== ENCOUNTER → 2020-02-01 13:04 | Outpatient (BNVA) | payer OTHER, SELFPAY | PROVIDERS: PCP Nurse Practitioner Family; Visit Provider Nurse Practitioner | DX: R16.2 Hepatomegaly with splenomegaly, not elsewhere classified (principal); K21.9 Gastro-esophageal reflux disease without esophagitis; R10.9 Unspecified abdominal pain; Z88.8 Allergy status to other drugs, medicaments and biological substances; Z91.018 Allergy to other foods; Z91.09 Other allergy status, other than to drugs and biological substances; Z79.899 Other long term (current) drug therapy | CPT/HCPCS: 99212 ==

== ENCOUNTER 2020-02-15 13:04 | Outpatient (REF) | payer OTHER, SELFPAY ==
--- NOTE | 2020-02-15 13:27 | XR_ITS ---
EXAMINATION: CR X-RAY KNEE 2 VIEW, RIGHT; KNEE STANDING BILATERAL CLINICAL INFORMATION: Right knee pain. COMPARISON: None TECHNIQUE: 2 views of the right knee and 1 standing view of the bilateral knees. FINDINGS: [id number] tricompartmental degenerative joint changes are seen in the right knee, most pronounced in the medial femoral-tibial and patellofemoral joint spaces. There is no acute fracture or dislocation. There is no joint effusion. The soft tissues are unremarkable. The patient is status post left knee arthroplasty without overt abnormality. XR/XR knee standing BI IMPRESSION: 1. Mild to moderate right knee degenerative joint changes suggesting osteoarthritis. 2. No overt left knee hardware abnormality.
--- NOTE | 2020-02-15 13:27 | XR_ITS ---
EXAMINATION: CR X-RAY KNEE 2 VIEW, RIGHT; KNEE STANDING BILATERAL CLINICAL INFORMATION: Right knee pain. COMPARISON: None TECHNIQUE: 2 views of the right knee and 1 standing view of the bilateral knees. FINDINGS: [id number] tricompartmental degenerative joint changes are seen in the right knee, most pronounced in the medial femoral-tibial and patellofemoral joint spaces. There is no acute fracture or dislocation. There is no joint effusion. The soft tissues are unremarkable. The patient is status post left knee arthroplasty without overt abnormality. XR/XR knee RT 2V IMPRESSION: 1. Mild to moderate right knee degenerative joint changes suggesting osteoarthritis. 2. No overt left knee hardware abnormality.
== END 2020-02-15 13:05 | disposition home or self-care (01) ==
LOC: HO.HOSX 13:04
PROVIDERS: PCP Nurse Practitioner Family; Referring Provider Nurse Practitioner Family; Visit Provider Orthopaedic Surgery
DX: M17.11 Unilateral primary osteoarthritis, right knee (principal)
CPT/HCPCS: 20610; 73560; 73565; 99202; J1040

== ENCOUNTER → 2020-03-14 13:32 | Outpatient (BNVA) | payer OTHER, SELFPAY | PROVIDERS: PCP Nurse Practitioner Family; Visit Provider Nurse Practitioner | DX: Z13.89 Encounter for screening for other disorder (principal) | CPT/HCPCS: Q3014 ==

== ENCOUNTER → 2020-04-26 09:37 | Outpatient (BNVA) | payer OTHER, SELFPAY | PROVIDERS: PCP Nurse Practitioner Family; Visit Provider Nurse Practitioner Gerontology | DX: Z13.89 Encounter for screening for other disorder (principal) | CPT/HCPCS: Q3014 ==

== ENCOUNTER → 2020-05-09 13:20 | Outpatient (BNVA) | payer OTHER, SELFPAY | PROVIDERS: PCP Nurse Practitioner Family; Visit Provider Nurse Practitioner | CPT/HCPCS: Q3014 ==

== ENCOUNTER 2020-06-05 10:01 | Outpatient (REF) | payer OTHER, SELFPAY ==
--- NOTE | ~2020-06-05 | US_ITS ---
EXAMINATION: US ABDOMEN COMPLETE CLINICAL INFORMATION: Hepatomegaly with splenomegaly. COMPARISON: CT abdomen pelvis 12/14/2019. X-ray abdomen 09/16/2017. Ultrasound abdomen 09/24/2016. TECHNIQUE: Real-time imaging of the abdominal viscera. FINDINGS: PANCREAS: Partially obscured by gas. ABDOMINAL AORTA: The proximal, mid, and distal segments are normal in caliber. INFERIOR VENA CAVA: Visualized portions are normal. LIVER: Liver is enlarged.. The liver contour is normal. There is increase in echogenicity. No focal hepatic lesion. There is no intrahepatic biliary duct dilatation seen. GALLBLADDER: Surgically absent. COMMON BILE DUCT: Normal in caliber measuring 0.6 cm in diameter. RIGHT KIDNEY: There is anechoic cyst measuring 0.7 x 0.7 x 0.7 cm midpole. Several echogenic foci seen in the cortex. No hydronephrosis or renal calculi. The kidney measures 10.3 cm in maximum dimension. LEFT KIDNEY: There is a lobulated complex hypoechoic lesion in the lower pole measuring 2.1 x 1.4 x 1.7 cm, likely cyst. It appears simple cyst on CT exam 12/14/2019. There are numerous echogenic foci in the cortex. No hydronephrosis or renal calculi. The kidney measures 10.8 cm in maximum dimension. SPLEEN: There is small splenule in the hilum measuring 1.5 x 1.2 x 1.4 cm. The spleen measures 15.5 cm in maximum dimension. FREE FLUID: None. US/US abdomen complete IMPRESSION: Hepatosplenomegaly with hepatic steatosis. No focal lesion seen. Bilateral echogenic foci in the renal cortices. No echogenic stones or hydronephrosis. Rest of the abdominal ultrasound is unremarkable.
== END 2020-06-05 10:02 | disposition home or self-care (01) ==
LOC: HO.US 10:01
PROVIDERS: PCP Nurse Practitioner Family; Visit Provider Nurse Practitioner
DX: R16.2 Hepatomegaly with splenomegaly, not elsewhere classified (principal)
CPT/HCPCS: 76700

== ENCOUNTER → 2020-07-23 12:41 | Outpatient (BNVA) | payer OTHER, SELFPAY | PROVIDERS: Visit Provider Nurse Practitioner | DX: Z13.89 Encounter for screening for other disorder (principal) | CPT/HCPCS: Q3014 ==

== ENCOUNTER → 2020-08-20 11:51 | Outpatient (BNVA) | payer OTHER, SELFPAY | PROVIDERS: Visit Provider Nurse Practitioner | DX: Z13.89 Encounter for screening for other disorder (principal) | CPT/HCPCS: Q3014 ==

== ENCOUNTER 2020-09-19 18:28 | Emergency (ER) | payer OTHER, SELFPAY ==
--- NOTE | ~2020-09-19 | XR_ITS ---
EXAMINATION: XR SHOULDER, LEFT CLINICAL INFORMATION: Shoulder pain COMPARISON: None TECHNIQUE: AP external rotation, Grashey, scapular Y, and axillary views of the left shoulder. FINDINGS: The bones and soft tissues are normal aside from some mild degenerative changes at the AC joint. No fracture. Glenohumeral and acromioclavicular alignment is anatomic with normal joint space at the glenohumeral joint. No abnormal soft tissue calcifications. XR/XR shoulder LT min 2V IMPRESSION: Mild degenerative changes AC joint.
[2020-09-19 19:04] VITALS: BP 134/60; BP 145/90; PULSE 89; PULSE 94; RESP 20; TEMP 36.6; O2SAT 100; O2SAT 99; BMI 38.2
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
== END 2020-09-19 20:34 | disposition home or self-care (01) ==
PROVIDERS: Emergency Provider Emergency Medicine; PCP Nurse Practitioner Family
DX: S46.912A Strain of unspecified muscle, fascia and tendon at shoulder and upper arm level, left arm, initial encounter (principal); I12.9 Hypertensive chronic kidney disease with stage 1 through stage 4 chronic kidney disease, or unspecified chronic kidney disease; N18.30 Chronic kidney disease, stage 3 unspecified; E11.22 Type 2 diabetes mellitus with diabetic chronic kidney disease; J44.9 Chronic obstructive pulmonary disease, unspecified; Z86.73 Personal history of transient ischemic attack (TIA), and cerebral infarction without residual deficits; Z79.4 Long term (current) use of insulin; Z79.899 Other long term (current) drug therapy; Y04.2XXA Assault by strike against or bumped into by another person, initial encounter; Y93.9 Activity, unspecified; Y92.9 Unspecified place or not applicable; Y99.9 Unspecified external cause status
CPT/HCPCS: 73030; 99283; 99284

== ENCOUNTER 2020-11-01 12:01 | Outpatient (REF) | payer OTHER, SELFPAY ==
[2020-11-01 14:07] LABS: Alanine Aminotransferase 13 U/L (0-31); Alkaline Phosphatase 133 U/L (39-117); Anion Gap 11 (12-20); Aspartate Amino Transferase 15 U/L (5-31); Bilirubin Total 0.3 mg/dL (0.0-1.0); Blood Urea Nitrogen 16 mg/dL (9-16); Calcium 9.6 mg/dL (8.4-10.2); Carbon Dioxide 24 mmol/L (22-29); Chloride 102 mmol/L (96-108); Estimated Glomerular Filt Rate 53; Glucose Random 79 mg/dL (60-115); Potassium 4.3 mmol/L (3.3-5.1); Sodium 133 mmol/L (135-145); Total Protein 7.3 g/dL (6.5-8.0)
== END 2020-11-01 12:02 | disposition home or self-care (01) ==
LOC: HO.LAB 12:01
PROVIDERS: PCP Registered Nurse; Visit Provider Nurse Practitioner
DX: R16.2 Hepatomegaly with splenomegaly, not elsewhere classified (principal); K75.81 Nonalcoholic steatohepatitis (NASH); K21.9 Gastro-esophageal reflux disease without esophagitis; E66.01 Morbid (severe) obesity due to excess calories; K59.00 Constipation, unspecified
CPT/HCPCS: 36415; 80053; 99212

== ENCOUNTER → 2020-12-17 13:39 | Outpatient (BNVA) | payer OTHER, SELFPAY | PROVIDERS: Visit Provider Nurse Practitioner | DX: K21.9 Gastro-esophageal reflux disease without esophagitis (principal); J96.01 Acute respiratory failure with hypoxia; J44.9 Chronic obstructive pulmonary disease, unspecified; E66.01 Morbid (severe) obesity due to excess calories; N18.30 Chronic kidney disease, stage 3 unspecified; I50.9 Heart failure, unspecified; Z12.11 Encounter for screening for malignant neoplasm of colon | CPT/HCPCS: Q3014 ==

== ENCOUNTER → 2021-01-15 13:26 | Outpatient (BNVA) | payer OTHER, SELFPAY | PROVIDERS: PCP Nurse Practitioner Family; Visit Provider Nurse Practitioner Gerontology | CPT/HCPCS: Q3014 ==

== ENCOUNTER 2021-02-18 05:07 | Inpatient (IN) | payer OTHER, SELFPAY ==
[2021-02-18] VITALS (13 sets, daily range): BP systolic 93–146; BP diastolic 29–97; PULSE 80–102; RESP 14–18; TEMP 36.2–36.9; O2SAT 90–99; BMI 35.5
--- NOTE | ~2021-02-18 | CT_ITS ---
EXAMINATION: NONCONTRAST HEAD CT NONCONTRAST CERVICAL SPINE CT INDICATION INFORMATION: Fall COMPARISON: 10/19/2017 TECHNIQUE: Separate noncontrast CT examinations of the head and cervical spine were performed. Coronal head CT images and coronal and sagittal cervical spine images were created at the technologist workstation. DLP: 1092 mGy-cm DOSE LOWERING TECHNIQUES: This CT examination was performed using dose optimization techniques as appropriate, variously including the following: - Automated exposure control - Adjustment of mA and/or kV according to patient size (this includes techniques or standardized protocols for targeted exams were dose is matched to indication/reason for exam; i.e. extremities or head) - Use of iterative reconstruction technique FINDINGS: Head: There is no evidence of acute intracranial hemorrhage or territorial infarction. No abnormal mass-effect or midline shift is seen. [place] to white matter differentiation is well preserved. No extra-axial fluid collections are identified. The ventricles are normal in size. Mild volume loss is noted. The osseous structures and soft tissues are normal. The mastoid air cells and visualized portions of the paranasal sinuses are well-aerated. Cervical spine: There is anatomic alignment of the vertebral bodies and posterior elements. Vertebral body heights are maintained. There is disc space narrowing of the lower cervical spine with associated endplate osteophyte formation. No evidence of acute fracture. No prevertebral soft tissue swelling. Visualized portions of the lung apices are unremarkable. The thyroid gland is suboptimally assessed due to motion artifact. CT/CT cervical spine wo con IMPRESSION: No acute findings identified in the head or cervical spine.
--- NOTE | ~2021-02-18 | XR_ITS ---
EXAMINATION: XR CHEST CLINICAL INFORMATION: Shortness of breath COMPARISON: 01/12/2020 TECHNIQUE: AP portable upright view of the chest FINDINGS: There is fullness of the central pulmonary vasculature with cephalization, most consistent with pulmonary venous congestion. Prominence of the peribronchial vascular interstitium is likely related to this. A superimposed interstitial, airways process is possible. No pleural effusion or pneumothorax. No focal airspace consolidation. Cardiac silhouette is within normal limits in size. No acute osseous findings. Mild degenerative spondylosis in the thoracic spine. XR/XR chest 1V IMPRESSION: Mild pulmonary venous congestion. Interstitial perihilar prominence may be due to the venous congestion or a small airways process such as asthma or atypical/viral infection. No focal consolidation.
--- NOTE | ~2021-02-18 | CT_ITS ---
EXAMINATION: NONCONTRAST HEAD CT NONCONTRAST CERVICAL SPINE CT INDICATION INFORMATION: Fall COMPARISON: 10/19/2017 TECHNIQUE: Separate noncontrast CT examinations of the head and cervical spine were performed. Coronal head CT images and coronal and sagittal cervical spine images were created at the technologist workstation. DLP: 1092 mGy-cm DOSE LOWERING TECHNIQUES: This CT examination was performed using dose optimization techniques as appropriate, variously including the following: - Automated exposure control - Adjustment of mA and/or kV according to patient size (this includes techniques or standardized protocols for targeted exams were dose is matched to indication/reason for exam; i.e. extremities or head) - Use of iterative reconstruction technique FINDINGS: Head: There is no evidence of acute intracranial hemorrhage or territorial infarction. No abnormal mass-effect or midline shift is seen. [place] to white matter differentiation is well preserved. No extra-axial fluid collections are identified. The ventricles are normal in size. Mild volume loss is noted. The osseous structures and soft tissues are normal. The mastoid air cells and visualized portions of the paranasal sinuses are well-aerated. Cervical spine: There is anatomic alignment of the vertebral bodies and posterior elements. Vertebral body heights are maintained. There is disc space narrowing of the lower cervical spine with associated endplate osteophyte formation. No evidence of acute fracture. No prevertebral soft tissue swelling. Visualized portions of the lung apices are unremarkable. The thyroid gland is suboptimally assessed due to motion artifact. CT/CT head/brain wo con IMPRESSION: No acute findings identified in the head or cervical spine.
--- NOTE | 2021-02-18 05:21 | ECG_ITS ---
Test Reason : fall Blood Pressure : / mmHG Vent. Rate : 089 BPM Atrial Rate : 089 BPM P-R Int : 166 ms QRS Dur : 088 ms QT Int : 364 ms P-R-T Axes : 070 059 045 degrees QTc Int : 442 ms Normal sinus rhythm RSR' or QR pattern in V1 suggests right ventricular conduction delay Borderline ECG When compared with ECG of 12-JAN-2020 06:26, No significant change was found Referred By: Jackelyn Soto Electronically Signed By:ELANA GOMEZ MD
--- NOTE | 2021-02-18 05:25 | ED.GENADULT ---
HPI - General Adult General Chief complaint: Fall Stated complaint: FALL,?LOC,+CCOLLAR Time Seen by Provider: 02/18/21 05:13 Source: patient and EMS Mode of arrival: EMS Limitations: no limitations History of Present Illness HPI narrative: Patient comes to the emergency room complaining of a fall. Patient states that she was standing, started feeling dizzy/lightheaded, fell to the ground, patient is unsure if she lost consciousness. Patient denies chest pain or shortness of breath, complaining of mild posterior headache, no neck pain. Related Data Home Medications Medication Instructions Recorded Confirmed amlodipine 10 mg tablet 1 tab PO BEDTIME 01/12/20 01/15/21 atorvastatin 40 mg tablet 1 tab PO BEDTIME 01/12/20 01/15/21 calcium carbonate 600 mg (1,500 1 tab PO BID 01/12/20 01/15/21 mg)-vitamin D3 400 unit tablet cetirizine 10 mg tablet 1 tab PO QAM 01/12/20 01/15/21 olmesartan 40 mg tablet 1 tab PO QAM 01/12/20 01/15/21 oxcarbazepine 150 mg tablet 1 tab PO BID 01/12/20 01/15/21 topiramate 50 mg tablet 1 tab PO BID 01/12/20 01/15/21 sertraline 50 mg tablet 50 mg PO QAM 08/20/20 01/15/21 gabapentin 400 mg capsule 1 cap PO BEDTIME 02/18/21 02/18/21 sitagliptin 100 mg tablet (Januvia) 1 tab PO QAM 02/18/21 02/18/21 topiramate 50 mg tablet 1 tab PO 02/18/21 Previous Rx's Medication Instructions Recorded imipramine HCl 25 mg tablet 50 mg PO BEDTIME 30 Days #60 tab 11/01/20 omeprazole 20 mg capsule,delayed 20 mg PO QAM 30 Days #30 cap 11/01/20 release sitagliptin 100 mg tablet (Januvia) 100 mg PO QAM #30 tab 11/22/20 Allergies Allergy/AdvReac Type Severity Reaction Status Date / Time hydrocodone [From Vicodin] Allergy Mild ITCHING Verified 01/15/21 15:07 SHANAE Inhibitors Allergy Unknown UNKNOWN Verified 01/15/21 15:07 [SHANAE INHIBITORS] acetaminophen [Vicodin] Allergy Unknown Unknown Verified 01/15/21 15:07 ENVIROMENTAL Allergy Mild HAYFEVER Uncoded 01/15/21 15:07 lysol wipes Allergy Mild Hives Uncoded 01/15/21 15:07 Vicodin Allergy Mild Itching Uncoded 01/15/21 15:07 [place] Allergy Unknown NEPHROPATHY Uncoded 01/15/21 15:07 yeast Allergy Unknown Unknown Uncoded 01/15/21 15:07 Review of Systems Review of Systems: Constitutional : No Weight loss, No Fever, No Chills, No Night Sweats, No Fatigue, No Malaise ENT/Mouth : No Hearing loss, No Ear Pain, No Nasal Congestion, No Sinus Pain, No Hoarseness, No sore throat, No Rhinorrhea, No Swallowing Difficulty Eyes: No Eye Pain, No Swelling, No Redness, No Foreign Body, No Discharge, No Vision Changes Cardiovascular : No Chest Pain, No SOB, No Dyspnea on Exertion, No Orthopnea, No Edema, No Palpitations Respiratory : No Cough, No Sputum, No Wheezing, No Smoke Exposure, No Dyspnea Gastrointestinal : No Nausea, No Vomiting, No Diarrhea, No Constipation, No abdominal Pain, No Hematochezia, No Melena Genitourinary : no irregular bleeding, No Dysuria, No Urinary Frequency, No Hematuria, No Urinary Incontinence, No Urgency, No Flank Pain, No Urinary Flow Changes, No Hesitancy Musculoskeletal : No joint pain, No Myalgias, No Joint Swelling Skin : No Skin Lesions, No rash Neuro : No Weakness, No Numbness, No Paresthesias, complaining lightheadedness/dizziness, leading to a fall with possible loss of consciousness Psych : No Anxiety/Panic, No Depression, No SI/HI/AH/VH, No Social Issues, Heme/Lymph: No Bruising, No Bleeding,No Lymphadenopathy Endocrine : No Polyuria, No Polydipsia, No Temperature Intolerance PMFSH Past Medical History Medical History Acute epigastric pain Asthma BMI 40.0-44.9, adult Chronic kidney disease, stage 3 COPD (chronic obstructive pulmonary disease) Diabetes Essential hypertension Family history of GERD History of migraine Hyperlipidemia Hyperlipidemia LDL goal <70 Hypertension JANET (obstructive sleep apnea) Osteoarthritis Renal failure Restless leg syndrome Seizures TIA (transient ischemic attack) Type 2 diabetes mellitus with chronic kidney disease Surgical History H/O esophagogastroduodenoscopy History of appendectomy History of carpal tunnel release History of cholecystectomy History of colonoscopy Hx of total knee arthroplasty Family History Family History Father Hx of gout Diabetes Mother Diabetes Daughter Pre-diabetes Brother Cancer Social History Social History Household Members: None Alcohol intake: never Patient Tobacco Use Status: Current everyday Tobacco user Cigarette Packs Per Day: 1 Cigarettes Per Day: 20.0 Use of substances other than those prescribed or required for medical reasons: No Advance Directives: No Advance Directives Information Provided: No Patient : No service: No Current occupational status: disabled Physical Exam Vital Signs: Vital Signs: Last Vital Signs Temp 98.1 F 02/18/21 05:24 Pulse 90 02/18/21 05:24 Resp 15 02/18/21 05:24 BP 93/42 L 02/18/21 05:24 Pulse Ox 98 02/18/21 05:24 Body Mass Index 35.5 Const: Other: Appearance: Alert. Oriented X3. No acute distress. Eyes: Pupils equal, round and reactive to light. ENT: Pharynx normal. Neck: On C-collar, no palpable step-offs, no C-spine tenderness on palpation. CVS: Normal heart rate and rhythm. Pulses normal. Normal S1 and S2 Respiratory: No respiratory distress. Breath sounds normal. No Wheezing. No rales Abdomen: Soft and nontender. No rigidity. No distention. good BS x4 Skin: Skin warm and dry. Mild ecchymosis on the left side of forehead Extremities: +2 pitting edema, No Lacerations. No Rash Neuro: Oriented X 3. No motor deficit. No sensory deficit. Moving all extermities. No slurred speech. Course Course Course Narrative: Head and neck CT showed no acute pathology. ALONA/guaiac test pending, orthostatic vitals pending. Guaiac negative, urinalysis pending, orthostatic vitals pending. Patient will likely need to be admitted to the hospital versus case management. Sign out given to Dr. Mejia Medical Decision Making Lab Data Result diagrams: 02/18/21 05:39 02/18/21 05:39 Labs: Lab Results 02/18/21 02/18/21 02/18/21 Range/Units 05:39 05:39 05:39 WBC 4.4 L (4.8-10.8) X10*3/uL RBC 3.43 L (4.20-5.50) X10*6/uL Hgb 8.0 L (12.0-16.0) g/dl Hct 25.8 L (37.0-47.0) % MCV 75.2 L (80.0-98.0) fL MCH 23.3 L (27.0-33.0) pg MCHC 31.0 (31.0-35.0) g/dl RDW 18.3 H (11.0-16.0) % Plt Count 182 (160-400) X10*3/uL MPV 9.0 L (9.4-12.3) fL Immature Gran % (Auto) 0.2 (0.0-0.4) % Neut % (Auto) 60.8 (45-73) % Lymph % (Auto) 30.3 (20-40) % [place] % (Auto) 8.5 (2-11) % Eos % (Auto) 0.0 (0-4) % Baso % (Auto) 0.2 (0-2) % Lymph # (Auto) 1.3 (1.2-4.9) X10*3/uL [place] # (Auto) 0.4 (0.1-1.2) X10*3/uL Eos # (Auto) 0.0 (0.0-0.4) X10*3/uL Baso # (Auto) 0.0 (0.0-0.2) X10*3/uL Abs Immat Gran (auto) 0.01 (0.00-0.03) X10*3/uL Absolute Neuts (auto) 2.6 (2.0-8.3) x10*3/uL Absolute Nucleated RBC 0.000 (0.0-0.012) X10*3/uL Nucleated RBC % (auto) 0.0 (0.0-0.2) /100WBC PT 10.6 (9.9-13.0) SEC INR 0.9 (0.9-1.1) Sodium 129 L (135-145) mmol/L Potassium 4.0 (3.3-5.1) mmol/L Chloride 100 (96-108) mmol/L Carbon Dioxide 22 (22-29) mmol/L Anion Gap 11 L (12-20) BUN 24 H (9-16) mg/dL Creatinine 1.17 (0.5-1.4) mg/dL Estim Creat Clear Calc 44.6 Estimated GFR 47 Random Glucose 98 (60-115) mg/dL Calcium 8.5 D (8.4-10.2) mg/dL Total Bilirubin 0.2 (0.0-1.0) mg/dL Direct Bilirubin < 0.2 (0.0-0.5) mg/dL AST 14 (5-31) U/L ALT 14 (0-31) U/L Alkaline Phosphatase 121 H (39-117) U/L Troponin I High Sens (<3.5-17.0) ng/L B-Natriuretic Peptide (<100) pg/mL Total Protein 6.5 (6.5-8.0) g/dL Albumin 3.5 (3.5-5.0) g/dL Stool Occult Blood (NEGATIVE) Ethyl Alcohol mg/dL COVID-19 (KRISTINA) (Negative) COVID-19 Clin Com 02/18/21 02/18/21 02/18/21 Range/Units 05:39 05:39 05:39 WBC (4.8-10.8) X10*3/uL RBC (4.20-5.50) X10*6/uL Hgb (12.0-16.0) g/dl Hct (37.0-47.0) % MCV (80.0-98.0) fL MCH (27.0-33.0) pg MCHC (31.0-35.0) g/dl RDW (11.0-16.0) % Plt Count (160-400) X10*3/uL MPV (9.4-12.3) fL Immature Gran % (Auto) (0.0-0.4) % Neut % (Auto) (45-73) % Lymph % (Auto) (20-40) % [place] % (Auto) (2-11) % Eos % (Auto) (0-4) % Baso % (Auto) (0-2) % Lymph # (Auto) (1.2-4.9) X10*3/uL [place] # (Auto) (0.1-1.2) X10*3/uL Eos # (Auto) (0.0-0.4) X10*3/uL Baso # (Auto) (0.0-0.2) X10*3/uL Abs Immat Gran (auto) (0.00-0.03) X10*3/uL Absolute Neuts (auto) (2.0-8.3) x10*3/uL Absolute Nucleated RBC (0.0-0.012) X10*3/uL Nucleated RBC % (auto) (0.0-0.2) /100WBC PT (9.9-13.0) SEC INR (0.9-1.1) Sodium (135-145) mmol/L Potassium (3.3-5.1) mmol/L Chloride (96-108) mmol/L Carbon Dioxide (22-29) mmol/L Anion Gap (12-20) BUN (9-16) mg/dL Creatinine (0.5-1.4) mg/dL Estim Creat Clear Calc Estimated GFR Random Glucose (60-115) mg/dL Calcium (8.4-10.2) mg/dL Total Bilirubin (0.0-1.0) mg/dL Direct Bilirubin (0.0-0.5) mg/dL AST (5-31) U/L ALT (0-31) U/L Alkaline Phosphatase (39-117) U/L Troponin I High Sens < 3.5 (<3.5-17.0) ng/L B-Natriuretic Peptide 10 (<100) pg/mL Total Protein (6.5-8.0) g/dL Albumin (3.5-5.0) g/dL Stool Occult Blood (NEGATIVE) Ethyl Alcohol < 10 mg/dL COVID-19 (KRISTINA) Negative (Negative) COVID-19 Clin Com See Note 02/18/21 Range/Units 06:41 WBC (4.8-10.8) X10*3/uL RBC (4.20-5.50) X10*6/uL Hgb (12.0-16.0) g/dl Hct (37.0-47.0) % MCV (80.0-98.0) fL MCH (27.0-33.0) pg MCHC (31.0-35.0) g/dl RDW (11.0-16.0) % Plt Count (160-400) X10*3/uL MPV (9.4-12.3) fL Immature Gran % (Auto) (0.0-0.4) % Neut % (Auto) (45-73) % Lymph % (Auto) (20-40) % [place] % (Auto) (2-11) % Eos % (Auto) (0-4) % Baso % (Auto) (0-2) % Lymph # (Auto) (1.2-4.9) X10*3/uL [place] # (Auto) (0.1-1.2) X10*3/uL Eos # (Auto) (0.0-0.4) X10*3/uL Baso # (Auto) (0.0-0.2) X10*3/uL Abs Immat Gran (auto) (0.00-0.03) X10*3/uL Absolute Neuts (auto) (2.0-8.3) x10*3/uL Absolute Nucleated RBC (0.0-0.012) X10*3/uL Nucleated RBC % (auto) (0.0-0.2) /100WBC PT (9.9-13.0) SEC INR (0.9-1.1) Sodium (135-145) mmol/L Potassium (3.3-5.1) mmol/L Chloride (96-108) mmol/L Carbon Dioxide (22-29) mmol/L Anion Gap (12-20) BUN (9-16) mg/dL Creatinine (0.5-1.4) mg/dL Estim Creat Clear Calc Estimated GFR Random Glucose (60-115) mg/dL Calcium (8.4-10.2) mg/dL Total Bilirubin (0.0-1.0) mg/dL Direct Bilirubin (0.0-0.5) mg/dL AST (5-31) U/L ALT (0-31) U/L Alkaline Phosphatase (39-117) U/L Troponin I High Sens (<3.5-17.0) ng/L B-Natriuretic Peptide (<100) pg/mL Total Protein (6.5-8.0) g/dL Albumin (3.5-5.0) g/dL Stool Occult Blood NEGATIVE (NEGATIVE) Ethyl Alcohol mg/dL COVID-19 (KRISTINA) (Negative) COVID-19 Clin Com Imaging Data Head and cervical spine CT: Radiologist's impression: FINDINGS: Head: There is no evidence of acute intracranial hemorrhage or territorial infarction. No abnormal mass-effect or midline shift is seen. [place] to white matter differentiation is well preserved. No extra-axial fluid collections are identified. The ventricles are normal in size. Mild volume loss is noted. The osseous structures and soft tissues are normal. The mastoid air cells and visualized portions of the paranasal sinuses are well-aerated. Cervical spine: There is anatomic alignment of the vertebral bodies and posterior elements. Vertebral body heights are maintained. There is disc space narrowing of the lower cervical spine with associated endplate osteophyte formation. No evidence of acute fracture. No prevertebral soft tissue swelling. Visualized portions of the lung apices are unremarkable. The thyroid gland is suboptimally assessed due to motion artifact. CT/CT cervical spine wo con IMPRESSION: No acute findings identified in the head or cervical spine. ECG Data Attestation: I personally reviewed and interpreted this ECG as follows: (Normal sinus rhythm, heart rate 89, nonspecific ST changes in V3 and V2, less than 1 mm, QTC 442) Discharge Plan Discharge Clinical Impression: Fall, Chronic hyponatremia, Anemia Prescriptions: No Action Januvia 100 mg tablet 100 mg PO QAM Qty: 30 RF: 6 oxcarbazepine 150 mg tablet 1 tab PO BID RF: 0 amlodipine 10 mg tablet 1 tab PO BEDTIME RF: 0 olmesartan 40 mg tablet 1 tab PO QAM RF: 0 calcium carbonate-vitamin D3 600 mg(1,500mg) -400 unit tablet 1 tab PO BID RF: 0 atorvastatin 40 mg tablet 1 tab PO BEDTIME RF: 0 cetirizine 10 mg tablet 1 tab PO QAM RF: 0 topiramate 50 mg tablet 1 tab PO BID RF: 0 gabapentin 400 mg capsule 1 cap PO BEDTIME RF: 0 topiramate 50 mg tablet 1 tab PO RF: 0 Januvia 100 mg tablet 1 tab PO QAM RF: 0 sertraline 50 mg tablet 50 mg PO QAM RF: 0 omeprazole 20 mg capsule,delayed release(DR/EC) 20 mg PO QAM 30 Days Qty: 30 RF: 6 imipramine HCl 25 mg tablet 50 mg PO BEDTIME 30 Days Qty: 60 RF: 6
[2021-02-18 05:45] LABS: MANUAL DIFF FLAG NO
[2021-02-18 05:49] LABS: Basophils Percent Auto 0.2 % (0-2); Hematocrit 25.8 % (37.0-47.0); Imm Gran Abs Auto 0.01 X10*3/uL (0.00-0.03); Imm Gran Pct Auto 0.2 % (0.0-0.4); Lymphocytes Absolute Auto 1.3 X10*3/uL (1.2-4.9); Lymphocytes Percent Auto 30.3 % (20-40); Mean Corpuscular Hemoglobin 23.3 pg (27.0-33.0); Mean Corpuscular Volume 75.2 fL (80.0-98.0); Monocytes Absolute Auto 0.4 X10*3/uL (0.1-1.2); Monocytes Percent Auto 8.5 % (2-11); Neutrophils Absolute Auto 2.6 x10*3/uL (2.0-8.3); Neutrophils Percent Auto 60.8 % (45-73); Platelet Count 182 X10*3/uL (160-400); Red Blood Count 3.43 X10*6/uL (4.20-5.50); Red Cell Distribution Width 18.3 % (11.0-16.0); White Blood Count 4.4 X10*3/uL (4.8-10.8)
[2021-02-18 05:55] LABS: INTERNATIONAL NORM RATIO 0.9 (0.9-1.1); Prothrombin Time 10.6 SEC (9.9-13.0)
[2021-02-18 06:00] LABS: COVID-19 Test Negative (Negative); IDNOW Serial# 9DD0AD1C
[2021-02-18 06:05] LABS: Alanine Aminotransferase 14 U/L (0-31); Albumin Level 3.5 g/dL (3.5-5.0); Alkaline Phosphatase 121 U/L (39-117); Anion Gap 11 (12-20); Aspartate Amino Transferase 14 U/L (5-31); Bilirubin Direct < 0.2 mg/dL (0.0-0.5); Bilirubin Total 0.2 mg/dL (0.0-1.0); Blood Urea Nitrogen 24 mg/dL (9-16); Calcium 8.5 mg/dL (8.4-10.2); Carbon Dioxide 22 mmol/L (22-29); Chloride 100 mmol/L (96-108); Creatinine Clr Calc Pharmacy 44.6; Estimated Glomerular Filt Rate 47; Glucose Random 98 mg/dL (60-115); Sodium 129 mmol/L (135-145); Total Protein 6.5 g/dL (6.5-8.0)
[2021-02-18 06:06] LABS: Ethanol < 10 mg/dL
[2021-02-18 06:08] LABS: B Type Natriuretic Peptide 10 pg/mL (<100); Troponin-I High Sensitivity < 3.5 ng/L (<3.5-17.0)
[2021-02-18 06:44] LABS: OBS Int Ctl Valid YES; OBS1 NEGATIVE (NEGATIVE)
[2021-02-18] MEDS: 0.9 % Sodium Chloride 1,000 ML 999 ML IVCONT (06:50)
--- NOTE | 2021-02-18 07:53 | PC.NURSE ---
Assumed care of patient. Pt is very drowsy, but arousable. Pt able to ambulate with a walker with a steady gait to the bathroom to give a urine sample. pt is now back in bed with NS infusing, resting comfortably.
[2021-02-18 07:54] LABS: Appearance Urine CLEAR; Color Urine YELLOW; Glucose Urine UA NEG (NEG); Leukocyte Esterase Urine NEG (NEG); Nitrite Urine NEG (NEG); Specific Gravity - Urine <= 1.005 (1.005-1.025); UACC Culture Trigger NO; Urine Blood TRACE (NEG); Urine Ketones NEG (NEG); Urine Protein NEG (NEG-TRACE)
[2021-02-18 08:03] LABS: Bacteria Urine TRACE /LPF; RBC Urine 0-2 /HPF (0); Squamous Epithelial Cell Urine 2+ /LPF; WBC Urine 0-2 /HPF (0-4)
[2021-02-18 08:13] LABS: Amphetamine Screen Urine Not Detected (Not Detect); Barbiturates, Urine Not Detected (Not Detect); Benzodiazepines Screen Urine Not Detected (Not Detect); Cannabinoid Screen Urine Not Detected (Not Detect); Cocaine Screen Urine Not Detected (Not Detect); Fentanyl, urine Not Detected (Not Detect); Opiate Screen Urine Not Detected (Not Detect); Phencyclidine Screen Urine Not Detected (Not Detect)
--- NOTE | 2021-02-18 10:29 | PHA.MEDREC ---
Pharmacy Consult ? Medication Reconciliation Pharmacy has completed the medication reconciliation. Patient is not talking and keeps falling asleep. Patient had list of tablets in her med box from [facility]. The inhaler and insulins are based on pharmacy record. Alessia Avalos, PharmD
[2021-02-18 13:26] LABS: Hematocrit 24.8 % (37.0-47.0); Hemoglobin 7.6 g/dl (12.0-16.0); Mean Corpuscular HGB Conc 30.6 g/dl (31.0-35.0); Mean Corpuscular Hemoglobin 23.2 pg (27.0-33.0); Mean Corpuscular Volume 75.8 fL (80.0-98.0); Mean Platelet Volume 8.4 fL (9.4-12.3); Platelet Count 161 X10*3/uL (160-400); Red Blood Count 3.27 X10*6/uL (4.20-5.50); Red Cell Distribution Width 17.9 % (11.0-16.0); White Blood Count 3.6 X10*3/uL (4.8-10.8)
--- NOTE | 2021-02-18 13:42 | MHC.CM.ED ---
Addendum entered by Eula Martines 02/18/21 13:51: Patient received 2 Moderna vaccines. PCP is Inez Dewitt. Copy of HCP verified to be on file. Patient receives 22.5 hours of [facility] services through [employer]. Addendum entered by Eula Martines 02/18/21 13:49: Patient aware she will be brought into the hospital. Original Note: Received case management consult this morning. Patient came to ER due to a fall. Physical therapy eval completed. Home therapy is recommended. Patient is active with [facility]. Per Colleen, at [facility], they will authorize PT through [facility]. Referral made via allscripts. Received notification from Dr Mejia that patient will be admitted. Continue to monitor for d/c needs.
--- NOTE | 2021-02-18 14:03 | PM.IMHP ---
History of Present Illness Date of Service: 02/18/21 Attending physician on admission: Goldy Steward 60 year old women presenting with syncope. She was in her kitchen and suddenly fell to the ground and hit her head. She was able to get herself up and call her sister. She has had a few of these epsiodes over the last few days. She does not remember if she had any symptoms prior. She has a hx of seizures and reports compliance with her Topamax. Her daughter 5 days ago and she feels like maybe this has exacerbated her symptoms. She denied fever, chills, nausea, vomiting or diarrhea. She was noted to be anemic with hemoglobin of 7.6 and hematocrit 24.8. She denies any over bleeding stool occult negative, no history of scope in the past. the ER she was given 1 L of IV fluid. she will place on observation for syncope. Review of Systems Review of Systems: Denies any recent fever chills or decrease in appetite respiratory denies any shortness of breath coverage production cardiovascular denies chest pain gastrointestinal denies any dysphagia abdominal pain nausea vomiting or diarrhea genitourinary denies any dysuria frequency or hematuria musculoskeletal denies any joint pain or swelling neuropsych denies any weakness or seizures all other systems reviewed are negative [facility] Medical History Acute epigastric pain Asthma BMI 40.0-44.9, adult Chronic kidney disease, stage 3 COPD (chronic obstructive pulmonary disease) Diabetes Essential hypertension Family history of GERD History of migraine Hyperlipidemia Hyperlipidemia LDL goal <70 Hypertension JANET (obstructive sleep apnea) Osteoarthritis Renal failure Restless leg syndrome Seizures TIA (transient ischemic attack) Type 2 diabetes mellitus with chronic kidney disease Family History Father Hx of gout Diabetes Mother Diabetes Daughter Pre-diabetes Brother Cancer Surgical History H/O esophagogastroduodenoscopy History of appendectomy History of carpal tunnel release History of cholecystectomy History of colonoscopy Hx of total knee arthroplasty Social History Household Members: None Alcohol intake: never Patient Tobacco Use Status: Current everyday Tobacco user Cigarette Packs Per Day: 1 Cigarettes Per Day: 20.0 Use of substances other than those prescribed or required for medical reasons: No Advance Directives: No Advance Directives Information Provided: No Patient : No service: No Current occupational status: disabled Meds Allergies Allergy/AdvReac Type Severity Reaction Status Date / Time hydrocodone [From Vicodin] Allergy Mild ITCHING Verified 01/15/21 15:07 SHANAE Inhibitors Allergy Unknown UNKNOWN Verified 01/15/21 15:07 [SHANAE INHIBITORS] acetaminophen [Vicodin] Allergy Unknown Unknown Verified 01/15/21 15:07 ENVIROMENTAL Allergy Mild HAYFEVER Uncoded 01/15/21 15:07 lysol wipes Allergy Mild Hives Uncoded 01/15/21 15:07 Vicodin Allergy Mild Itching Uncoded 01/15/21 15:07 [place] Allergy Unknown NEPHROPATHY Uncoded 01/15/21 15:07 yeast Allergy Unknown Unknown Uncoded 01/15/21 15:07 Active Medications: Current Medications Pharmacy Consult (Consult Rx Perform Med Rec) 1 each MISCELLANE ONCE PRN PRN Reason: Consult order Home Medications Medication Instructions Recorded Confirmed Last Taken Type amlodipine 10 mg tablet 1 tab PO BEDTIME 01/12/20 02/18/21 Unknown History atorvastatin 40 mg tablet 1 tab PO BEDTIME 01/12/20 02/18/21 Unknown History calcium carbonate 600 mg (1,500 1 tab PO BID 01/12/20 02/18/21 Unknown History mg)-vitamin D3 400 unit tablet cetirizine 10 mg tablet 1 tab PO QAM 01/12/20 02/18/21 Unknown History olmesartan 40 mg tablet 40 mg PO DAILY 01/12/20 02/18/21 Unknown History oxcarbazepine 150 mg tablet 1 tab PO BID 01/12/20 02/18/21 Unknown History topiramate 50 mg tablet 50 mg PO BID 01/12/20 02/18/21 Unknown History sertraline 50 mg tablet 50 mg PO DAILY 08/20/20 02/18/21 Unknown History albuterol sulfate 90 mcg/actuation 2 puff PO QID PRN 02/18/21 02/18/21 Unknown History aerosol inhaler aspirin 81 mg tablet,delayed 1 tab PO BEDTIME 02/18/21 02/18/21 Unknown History release cholecalciferol (vitamin D3) 50 1 cap PO QAM 02/18/21 02/18/21 Unknown History mcg (2,000 unit) capsule fluticasone propionate 110 2 puff INHALATION BID 02/18/21 02/18/21 Unknown History mcg/actuation HFA aerosol inhaler (Flovent HFA) fluticasone propionate 50 2 spray INTRANASAL DAILY 02/18/21 02/18/21 Unknown History mcg/actuation nasal spray,suspension furosemide 40 mg tablet 1.5 tab PO QAM 02/18/21 02/18/21 Unknown History gabapentin 400 mg capsule 400 mg PO BEDTIME 02/18/21 02/18/21 Unknown History insulin aspart U-100 100 unit/mL 6 unit SUBCUT TID 02/18/21 02/18/21 Unknown History (3 mL) subcutaneous pen (Novolog Flexpen U-100 Insulin aspart) insulin glargine 100 unit/mL (3 16 unit SUBCUT BEDTIME 02/18/21 02/18/21 Unknown History mL) subcutaneous pen (Lantus Solostar U-100 Insulin) omeprazole 20 mg capsule,delayed 20 mg PO DAILY 02/18/21 02/18/21 Unknown History release sitagliptin 100 mg tablet (Januvia) 100 mg PO DAILY 02/18/21 02/18/21 Unknown History Physical Exam Vital Signs and Narrative: Vital Signs: Last Vital Signs Temp 98.1 F 02/18/21 05:24 Pulse 88 02/18/21 12:35 Resp 14 02/18/21 12:35 BP 119/54 L 02/18/21 12:35 Pulse Ox 95 02/18/21 12:35 Body Mass Index 35.5 Appearing in no acute distress head is normocephalic atraumatic eyes pupils are PERRLA sclera is anicteric mouth throat mucous membranes are intact and moist neck is supple no lymphadenopathy, no JVD noted lung sounds are clear to auscultation heart regular rate rhythm, clear S1, S2 positive bowel sounds, abdomen is soft, nontender neuro patient is alert x3, no focal deficits Results Labs CBC and Chem 7: 02/18/21 13:20 02/18/21 05:39 Labs: Laboratory Results - last 24 hr 02/18/21 02/18/21 02/18/21 05:39 05:39 05:39 MCV 75.2 L MCH 23.3 L MCHC 31.0 RDW 18.3 H Plt Count 182 MPV 9.0 L Immature Gran % (Auto) 0.2 Neut % (Auto) 60.8 Lymph % (Auto) 30.3 [place] % (Auto) 8.5 Eos % (Auto) 0.0 Baso % (Auto) 0.2 Lymph # (Auto) 1.3 [place] # (Auto) 0.4 Eos # (Auto) 0.0 Baso # (Auto) 0.0 Abs Immat Gran (auto) 0.01 Absolute Neuts (auto) 2.6 Absolute Nucleated RBC 0.000 Nucleated RBC % (auto) 0.0 PT 10.6 INR 0.9 Anion Gap 11 L Estim Creat Clear Calc 44.6 Estimated GFR 47 Random Glucose 98 Calcium 8.5 D Total Bilirubin 0.2 Direct Bilirubin < 0.2 AST 14 ALT 14 Alkaline Phosphatase 121 H Troponin I High Sens B-Natriuretic Peptide Total Protein 6.5 Albumin 3.5 Urine Color Urine Appearance Urine pH Ur Specific Stites Urine Protein Urine Glucose (UA) Urine Ketones Urine Blood Urine Nitrite Ur Leukocyte Esterase Urine RBC Urine WBC Ur Squamous Epith Cells Urine Bacteria Stool Occult Blood Urine Opiates Screen Urine Fentanyl Screen Ur Barbiturates Screen Ur Phencyclidine Scrn Ur Amphetamines Screen U Benzodiazepines Scrn Urine Cocaine Screen U Marijuana (THC) Screen Ethyl Alcohol COVID-19 (KRISTINA) COVID-19 Clin Com 02/18/21 02/18/21 02/18/21 05:39 05:39 05:39 MCV MCH MCHC RDW Plt Count MPV Immature Gran % (Auto) Neut % (Auto) Lymph % (Auto) [place] % (Auto) Eos % (Auto) Baso % (Auto) Lymph # (Auto) [place] # (Auto) Eos # (Auto) Baso # (Auto) Abs Immat Gran (auto) Absolute Neuts (auto) Absolute Nucleated RBC Nucleated RBC % (auto) PT INR Anion Gap Estim Creat Clear Calc Estimated GFR Random Glucose Calcium Total Bilirubin Direct Bilirubin AST ALT Alkaline Phosphatase Troponin I High Sens < 3.5 B-Natriuretic Peptide 10 Total Protein Albumin Urine Color Urine Appearance Urine pH Ur Specific Stites Urine Protein Urine Glucose (UA) Urine Ketones Urine Blood Urine Nitrite Ur Leukocyte Esterase Urine RBC Urine WBC Ur Squamous Epith Cells Urine Bacteria Stool Occult Blood Urine Opiates Screen Urine Fentanyl Screen Ur Barbiturates Screen Ur Phencyclidine Scrn Ur Amphetamines Screen U Benzodiazepines Scrn Urine Cocaine Screen U Marijuana (THC) Screen Ethyl Alcohol < 10 COVID-19 (KRISTINA) Negative COVID-19 Clin Com See Note 02/18/21 02/18/21 02/18/21 06:41 07:46 07:46 MCV MCH MCHC RDW Plt Count MPV Immature Gran % (Auto) Neut % (Auto) Lymph % (Auto) [place] % (Auto) Eos % (Auto) Baso % (Auto) Lymph # (Auto) [place] # (Auto) Eos # (Auto) Baso # (Auto) Abs Immat Gran (auto) Absolute Neuts (auto) Absolute Nucleated RBC Nucleated RBC % (auto) PT INR Anion Gap Estim Creat Clear Calc Estimated GFR Random Glucose Calcium Total Bilirubin Direct Bilirubin AST ALT Alkaline Phosphatase Troponin I High Sens B-Natriuretic Peptide Total Protein Albumin Urine Color YELLOW Urine Appearance CLEAR Urine pH 6.0 Ur Specific Stites <= 1.005 Urine Protein NEG Urine Glucose (UA) NEG Urine Ketones NEG Urine Blood TRACE Urine Nitrite NEG Ur Leukocyte Esterase NEG Urine RBC 0-2 Urine WBC 0-2 Ur Squamous Epith Cells 2+ Urine Bacteria TRACE Stool Occult Blood NEGATIVE Urine Opiates Screen Not Detected Urine Fentanyl Screen Not Detected Ur Barbiturates Screen Not Detected Ur Phencyclidine Scrn Not Detected Ur Amphetamines Screen Not Detected U Benzodiazepines Scrn Not Detected Urine Cocaine Screen Not Detected U Marijuana (THC) Screen Not Detected Ethyl Alcohol COVID-19 (KRISTINA) COVID-19 Clin Com 02/18/21 13:20 MCV 75.8 L MCH 23.2 L MCHC 30.6 L RDW 17.9 H Plt Count 161 MPV 8.4 L Immature Gran % (Auto) Neut % (Auto) Lymph % (Auto) [place] % (Auto) Eos % (Auto) Baso % (Auto) Lymph # (Auto) [place] # (Auto) Eos # (Auto) Baso # (Auto) Abs Immat Gran (auto) Absolute Neuts (auto) Absolute Nucleated RBC 0.000 Nucleated RBC % (auto) 0.0 PT INR Anion Gap Estim Creat Clear Calc Estimated GFR Random Glucose Calcium Total Bilirubin Direct Bilirubin AST ALT Alkaline Phosphatase Troponin I High Sens B-Natriuretic Peptide Total Protein Albumin Urine Color Urine Appearance Urine pH Ur Specific Stites Urine Protein Urine Glucose (UA) Urine Ketones Urine Blood Urine Nitrite Ur Leukocyte Esterase Urine RBC Urine WBC Ur Squamous Epith Cells Urine Bacteria Stool Occult Blood Urine Opiates Screen Urine Fentanyl Screen Ur Barbiturates Screen Ur Phencyclidine Scrn Ur Amphetamines Screen U Benzodiazepines Scrn Urine Cocaine Screen U Marijuana (THC) Screen Ethyl Alcohol COVID-19 (KRISTINA) COVID-19 Clin Com Imaging Radiologist's Impressions: Impressions Cervical Spine CT 02/18/21 05:21 IMPRESSION: No acute findings identified in the head or cervical spine. Head CT 02/18/21 05:21 IMPRESSION: No acute findings identified in the head or cervical spine. Chest X-Ray 02/18/21 05:28 IMPRESSION: Mild pulmonary venous congestion. Interstitial perihilar prominence may be due to the venous congestion or a small airways process such as asthma or atypical/viral infection. No focal consolidation. Assessment and Plan (1) Anemia: Status: Acute (2) Syncope: Status: Acute (3) Seizure: Status: Acute (4) Obesity: Status: Acute (5) Hyponatremia: Status: Acute 60 year old women admitted after an epsiode of syncope and found to be anemic Syncope, likely secondary to seizure Compliant with Topamax EEG Neuro consult orthostatic BP Anemia Low iron, normal TIBC No overt bleeding stool negative follow GI consult Hyponatremia. ? dehydration follow sodium closely if no change or worsening noted consider nephrology consultation urine lytes and osmo Diabetes sliding scale ADA diet Hypertension amlodipine HLD statin Obesity. BMI 35.5 Discussed the importance of weight management as this may contribute to worsening of other comorbidities Attending Dr. Nichelle Delaney code Quality Stroke Does the patient have a stroke diagnosis?: No VTE Prior VTE?: No VTE Risk Level:: Medical - moderate - high VTE Device Contraindication: N/A - Device Ordered VTE Drug Contraindication: Treatment Not Indicated
[2021-02-18 15:45] LABS: Reticulocyte Percent 1.5 % (0.5-1.8); Reticulocytes Absolute 0.048 X10*6/uL (0.026-0.095)
[2021-02-18 15:55] LABS: Iron 12 mcg/dL (30-160); Percent Iron Saturation 5 % (15-50); Total Iron Binding Capacity 261 mcg/dL (228-428); Unsaturated Iron Binding 249 ug/dL
[2021-02-18 16:00] LABS: Creatinine Urine 43.88 mg/dL; Osmolality Urine 206 mosm/kg (373-1093); Potassium Urine Random 22.3 mmol/L; Sodium Urine Random < 20.0 mmol/L
[2021-02-18 16:02] LABS: Chloride Urine Random < 20.0 mmol/L
[2021-02-18 16:14] LABS: Ferritin 19 ng/mL (10-250)
--- NOTE | 2021-02-18 16:45 | P.EN_ITS ---
Event Note Date of Service: 02/18/21 Event Note: Addendum to history and physical by mid-level provider [employer] MACHINIST Lindsay ellison I interviewed and examined the patient. I discussed their presentation and management with the mid-level provider. I reviewed the history and physical and agree with the documentation, with the following additions and corrections: 60o F with HTN, DM2, HLD, obesity, seizure disorder on topiramate presenting with sycnopal episode, unwitnessed. Grieving the loss of her daughter 5d ago. Found to have microcytic anemia with Hb 7.6, MCV 76, FOBT negative. On exam, in NAD, BP soft at 107/49, HR 89. Lungs clear, RRR no m/r/g, abd soft. Na 129. Plan admit to [facility], check topiramate level, consult Neuro, check EEG, check orthostatic vital signs, transfuse 1u pRBCs, consult GI. Recheck BMP + CBC in am.
[2021-02-18] MEDS: Cholecalciferol (Vitamin D3) 25 MCG TABLET 50 MCG PO (17:14)
[2021-02-18] MEDS: Loratadine 10 MG TABLET PO (17:14)
--- NOTE | 2021-02-18 17:57 | MHC.CM.PN ---
Addendum entered by Eirca Montoya 02/18/21 18:36: HERMINIO reviewed and signed per protocol 02/18/2021 @ 1800. Original Note: CM met with patient. Patient tells CM her HCP/brother Milton . New HCP completed with HCP/sister Vee Cadena([phone]). Copies given and uploaded into [facility] and [facility] [employer]. CM to follow for d/c needs.
[2021-02-18 18:51] LABS: Glucose, Whole Blood 103 mg/dL (60-115)
[2021-02-18 19:02] LABS: Hematocrit 26.6 % (37.0-47.0); Hemoglobin 8.4 g/dl (12.0-16.0)
[2021-02-18 20:38] LABS: Glucose, Whole Blood 119 mg/dL (60-115)
[2021-02-18] MEDS: Aspirin Enteric Coated 81 MG TABLET.DR PO (20:42)
[2021-02-18] MEDS: OXcarbazepine 150 MG TABLET PO (20:42)
[2021-02-18] MEDS: Atorvastatin Calcium 40 MG TABLET PO (20:42)
[2021-02-18] MEDS: Topiramate 25 MG TABLET 50 MG PO (20:42)
[2021-02-18] MEDS: Calcium + Vitamin D 250 MG TABLET PO (20:42)
[2021-02-18] MEDS: Gabapentin 400 MG CAPSULE PO (20:42)
[2021-02-18] MEDS: Insulin Glargine,Hum.rec.anlog 100 UNIT/ML 10 ML VIAL 16 UNIT SUBCUT (20:43)
[2021-02-19] VITALS (7 sets, daily range): BP systolic 117–147; BP diastolic 57–69; PULSE 83–87; RESP 18–19; TEMP 36.4–36.8; O2SAT 95–99
--- NOTE | 2021-02-19 | EEG_ITS ---
Throughout the EEG, the patient is predominantly drowsy with diffuse theta and sleep with frontal central sleep spindles. Very brief waking record is recorded. Several episodes of low-amplitude bifrontal isolated small spike and slow waves are seen, particularly with photic stimulation. IMPRESSION: This EEG is considered mildly abnormal due to isolated small spike and slow wave discharges in a bifrontal distribution that could correlate with a seizure disorder. Clinical correlation is suggested. MD MILADIS Christine/MOHSEN / [id number]
[2021-02-19] MEDS: 0.9 % Sodium Chloride Flush 3 ML SYRINGE IVFLUSH ×4 (01:18→21:16)
[2021-02-19] MEDS: Omeprazole 20 MG CAPSULE.DR PO (05:38)
[2021-02-19 05:41] LABS: MANUAL DIFF FLAG NO
[2021-02-19 05:49] LABS: Hematocrit 26.7 % (37.0-47.0); Hemoglobin 8.3 g/dl (12.0-16.0); Imm Gran Abs Auto 0.01 X10*3/uL (0.00-0.03); Imm Gran Pct Auto 0.3 % (0.0-0.4); Lymphocytes Absolute Auto 1.2 X10*3/uL (1.2-4.9); Lymphocytes Percent Auto 32.8 % (20-40); Mean Corpuscular HGB Conc 31.1 g/dl (31.0-35.0); Mean Corpuscular Hemoglobin 24.4 pg (27.0-33.0); Mean Corpuscular Volume 78.5 fL (80.0-98.0); Monocytes Absolute Auto 0.3 X10*3/uL (0.1-1.2); Monocytes Percent Auto 9.4 % (2-11); Neutrophils Percent Auto 57.5 % (45-73); Platelet Count 165 X10*3/uL (160-400); White Blood Count 3.5 X10*3/uL (4.8-10.8)
[2021-02-19 07:23] LABS: Glucose, Whole Blood 85 mg/dL (60-115)
[2021-02-19] MEDS: Cholecalciferol (Vitamin D3) 25 MCG TABLET 50 MCG PO (08:36)
[2021-02-19] MEDS: OXcarbazepine 150 MG TABLET PO ×2 (08:36→21:16)
[2021-02-19] MEDS: Sertraline HCL 50 MG TABLET PO (08:36)
[2021-02-19] MEDS: Calcium + Vitamin D 250 MG TABLET PO ×2 (08:37→21:16)
[2021-02-19] MEDS: SITagliptin Phosphate 100 MG TABLET PO (08:37)
[2021-02-19] MEDS: Topiramate 25 MG TABLET 50 MG PO (08:37)
[2021-02-19] MEDS: Loratadine 10 MG TABLET PO (08:37)
[2021-02-19 09:07] LABS: Anion Gap 10 (12-20); Blood Urea Nitrogen 16 mg/dL (9-16); Calcium 8.8 mg/dL (8.4-10.2); Carbon Dioxide 23 mmol/L (22-29); Chloride 108 mmol/L (96-108); Creatinine Clr Calc Pharmacy 56.2; Estimated Glomerular Filt Rate > 60; Glucose Random 89 mg/dL (60-115); Potassium 4.4 mmol/L (3.3-5.1); Sodium 137 mmol/L (135-145)
--- NOTE | 2021-02-19 11:32 | P.CNGI_ITS ---
History of Present Illness Data of Consult Service Date: 02/19/21 Requesting physician: Lindsay Valentine Primary Care Provider: Inez Dewitt NP HPI Reason for consult: Anemia 60 YF seen at [facility] on 02/18/21 after a fall associated with syncope: HPI narrative: Patient comes to the emergency room complaining of a fall.? Patient states that she was standing, started feeling dizzy/lightheaded, fell to the ground, patient is unsure if she lost consciousness.? Patient denies chest pain or shortness of breath, complaining of mild posterior headache, no neck pain . She was in her kitchen and suddenly fell to the ground and hit her head. She was able to get herself up and call her sister. She has had a few of these epsiodes over the last few days.? She does not remember if she had any symptoms prior. She has a hx of seizures and reports compliance with her Topamax. Pt denies heartburn, dysphagia, abdominal pain, recent change in appetite or weight. She denied fever, chills, nausea, vomiting or diarrhea.? She has anemia for the past year and noted to be worse with hemoglobin of 7.6 and hematocrit 24.8.? She denies any overt bleeding and stool occult blood was negative. Pt has been followed by Temitope Rico in the GI clinic for fatty liver and fecal incontinence and gives a hx of intentional wt loss of 50 lbs over the past several months. She has a single episode of BRBPR several weeks ago attributed to hemorrhoids/anal fissure. Pt is upset since her daughter 5 days ago after choking on a piece of meat. Pt performed heimlich maneuver followed by CPR. When paramedics arrived daughter could not be resuscitated. Patient is disabled and had 1 daughter and a granddaughter. She smokes 1 pack per day since age 16 and is disabled. Patient denies known family history of colon polyps, colon cancer. A brother had esophageal cancer. ENDOSCOPIC STUDIES: 2010 patient had a colonoscopy by Dr. Diallo which showed diverticulosis and no polyps were detected. Review of Systems Constitutional: Constitutional: Denies fever(s), Reports headache(s) and Re ports weight loss Eyes: Eyes: Denies eye discharge and Denies irritation ENT: Reports Normal hearing present, Denies dysphagia, Denies dizziness and Reports headache(s) Cardiovascular: Cardiovascular: Denies chest pain, Denies leg edema and Denies dyspnea on exertion Respiratory: Respiratory: Denies cough, Denies dyspnea on exertion and Denies wheezing Gastrointestinal: Gastrointestinal: Denies abdominal pain, Denies change in bowel habits, Denies dysphagia and Denies heartburn Genitourinary: Genitourinary: Denies difficulty voiding and Denies dysuria Musculoskeletal: Musculoskeletal: Denies back pain and Denies arthralgias Integumentary/Breasts: Skin/Breast: Denies pruritus, Denies rash and Denies jaundice Neurologic: Reports Normal hearing present, Denies Abnormal speech present, Denies dizziness, Reports headache(s) and Denies seizure-like activity Psychiatric: Psychiatric: Denies anxiety, Denies depression and Denies panic attacks Endocrine: Endocrine: Denies cold intolerance, Denies flushing and Denies heat intolerance Hematologic/Lymphatic: Hematologic/Lymphatic: Denies easy bleeding and Denies easy bruising Allergic/Immunologic: Allergic/Immunologic: Denies wheezing PMFSH Past Medical History Medical History Acute epigastric pain Asthma BMI 40.0-44.9, adult Chronic kidney disease, stage 3 COPD (chronic obstructive pulmonary disease) Diabetes Essential hypertension Family history of GERD History of migraine Hyperlipidemia Hyperlipidemia LDL goal <70 Hypertension JANET (obstructive sleep apnea) Osteoarthritis Renal failure Restless leg syndrome Seizures TIA (transient ischemic attack) Type 2 diabetes mellitus with chronic kidney disease Family History Family History Father Hx of gout Diabetes Mother Diabetes Daughter Pre-diabetes Brother Cancer Surgical History Surgical History H/O esophagogastroduodenoscopy History of appendectomy History of carpal tunnel release History of cholecystectomy History of colonoscopy Hx of total knee arthroplasty Social History Social History Household Members: None Housing: Apartment Alcohol intake: never Patient Tobacco Use Status: Current everyday Tobacco user Cigarette Packs Per Day: 1 Cigarettes Per Day: 20.0 Smoked in Last 30 Days: Yes Patient Interested in Nicotine Replacement: Yes Use of substances other than those prescribed or required for medical reasons: No Currently Displaying Signs/Symptoms of Drug Intoxication Withdrawal: No Advance Directives: No Advance Directives Information Provided: No Do you have thoughts of harming others: None Do you have a plan to hurt others: No Plan Recently lost weight without trying: No Patient : No service: No Current occupational status: disabled Meds Allergies Allergy/AdvReac Type Severity Reaction Status Date / Time hydrocodone [From Vicodin] Allergy Mild ITCHING Verified 01/15/21 15:07 HSANAE Inhibitors Allergy Unknown UNKNOWN Verified 01/15/21 15:07 [SHANAE INHIBITORS] acetaminophen [Vicodin] Allergy Unknown Unknown Verified 01/15/21 15:07 ENVIROMENTAL Allergy Mild HAYFEVER Uncoded 01/15/21 15:07 lysol wipes Allergy Mild Hives Uncoded 01/15/21 15:07 Vicodin Allergy Mild Itching Uncoded 01/15/21 15:07 avacado Allergy Unknown NEPHROPATHY Uncoded 01/15/21 15:07 Active Medications: Current Medications Acetaminophen (Acetaminophen 325 Mg Tablet) 650 mg PO Q6H PRN PRN Reason: Pain, Mild (Pain Scale 1-3) Albuterol Sulfate (Albuterol Sulfate 90 Mcg 8 Gm Inhaler) 2 puff INHALE QID PRN PRN Reason: Wheezing Aspirin (Aspirin Enteric Coated 81 Mg Tablet.Dr) 81 mg PO BEDTIME [facility] Last Admin: 02/18/21 20:42 Dose: 81 mg Documented by: Atorvastatin Calcium (Atorvastatin Calcium 40 Mg Tablet) 40 mg PO BEDTIME [facility] Last Admin: 02/18/21 20:42 Dose: 40 mg Documented by: Benzonatate (Benzonatate 100 Mg Capsule) 100 mg PO TID PRN PRN Reason: Cough Calcium Carbonate/Cholecalciferol (Calcium + Vitamin D 250 Mg Tablet) 250 mg PO BID [facility] Last Admin: 02/19/21 08:37 Dose: 250 mg Documented by: Dextrose (Dextrose 50 % 25 Gm/50 Ml Vial) 25 gm IVPUSH Q15M PRN; Protocol PRN Reason: per Hypoglycemia Standing Ord. Fluticasone Propionate (Fluticasone Propionate 100 Mcg Blst.W.Dev) 2 puff INHALE RBID [facility] Last Admin: 02/18/21 20:43 Dose: Not Given Documented by: Fluticasone Propionate (Fluticasone Propionate Nasal 16 Gm [place]) 2 spray NOSTRIL-B DAILY [facility] Gabapentin (Gabapentin 400 Mg Capsule) 400 mg PO BEDTIME [facility] Last Admin: 02/18/21 20:42 Dose: 400 mg Documented by: Glucose (Glucose Gel 15 Gm Gel..Gram.) 15 gm PO Q15M PRN; Protocol PRN Reason: per Hypoglycemia Standing Ord. Insulin Glargine (Insulin Glargine,Hum.Rec.Anlog 100 Unit/Ml 10 Ml Vial) 16 unit SUBCUT BEDTIME [facility] Last Admin: 02/18/21 20:43 Dose: 16 unit Documented by: Insulin Human Lispro (Insulin Lispro 100 Unit/Ml 3 Ml Vial) 6 unit SUBCUT TIDAC [facility] Last Admin: 02/19/21 07:34 Dose: Not Given Documented by: Insulin Human Lispro (Insulin Lispro 100 Unit/Ml 3 Ml Vial) 0 unit SUBCUT QIDACHS [facility]; Protocol Last Admin: 02/19/21 07:34 Dose: Not Given Documented by: Loratadine (Loratadine 10 Mg Tablet) 10 mg PO DAILY [facility] Last Admin: 02/19/21 08:37 Dose: 10 mg Documented by: Non-Formulary Medication (Imipramine Hcl) 50 mg PO BEDTIME [facility] Omeprazole (Omeprazole 20 Mg Capsule.Dr) 20 mg PO DAILY@0630 [facility] Last Admin: 02/19/21 05:38 Dose: 20 mg Documented by: Oxcarbazepine (Oxcarbazepine 150 Mg Tablet) 150 mg PO BID [facility] Last Admin: 02/19/21 08:36 Dose: 150 mg Documented by: Pharmacy Consult (Consult Rx Perform Med Rec) 1 each MISCELLANE ONCE PRN PRN Reason: Consult order Sertraline HCl (Sertraline Hcl 50 Mg Tablet) 50 mg PO DAILY [facility] Last Admin: 02/19/21 08:36 Dose: 50 mg Documented by: Sitagliptin Phosphate (Sitagliptin Phosphate 100 Mg Tablet) 100 mg PO DAILY [facility] Last Admin: 02/19/21 08:37 Dose: 100 mg Documented by: Sodium Chloride (0.9 % Sodium Chloride Flush 3 Ml Syringe) 3 ml IVFLUSH QSHIFT [facility] Last Admin: 02/19/21 08:36 Dose: 3 ml Documented by: Topiramate (Topiramate 25 Mg Tablet) 50 mg PO BID [facility] Last Admin: 02/19/21 08:37 Dose: 50 mg Documented by: Vitamin D (Cholecalciferol (Vitamin D3) 25 Mcg Tablet) 50 mcg PO DAILY [facility] Last Admin: 02/19/21 08:36 Dose: 50 mcg Documented by: Home Medications Medication Instructions Recorded Confirmed Last Taken Type amlodipine 10 mg tablet 1 tab PO BEDTIME 01/12/20 02/18/21 Unknown History atorvastatin 40 mg tablet 1 tab PO BEDTIME 01/12/20 02/18/21 Unknown History calcium carbonate 600 mg (1,500 1 tab PO BID 01/12/20 02/18/21 Unknown History mg)-vitamin D3 400 unit tablet cetirizine 10 mg tablet 1 tab PO QAM 01/12/20 02/18/21 Unknown History olmesartan 40 mg tablet 40 mg PO DAILY 01/12/20 02/18/21 Unknown History oxcarbazepine 150 mg tablet 1 tab PO BID 01/12/20 02/18/21 Unknown History topiramate 50 mg tablet 50 mg PO BID 01/12/20 02/18/21 Unknown History sertraline 50 mg tablet 50 mg PO DAILY 08/20/20 02/18/21 Unknown History albuterol sulfate 90 mcg/actuation 2 puff PO QID PRN 02/18/21 02/18/21 Unknown History aerosol inhaler aspirin 81 mg tablet,delayed 1 tab PO BEDTIME 02/18/21 02/18/21 Unknown History release cholecalciferol (vitamin D3) 50 1 cap PO QAM 02/18/21 02/18/21 Unknown History mcg (2,000 unit) capsule fluticasone propionate 110 2 puff INHALATION BID 02/18/21 02/18/21 Unknown History mcg/actuation HFA aerosol inhaler (Flovent HFA) fluticasone propionate 50 2 spray INTRANASAL DAILY 02/18/21 02/18/21 Unknown History mcg/actuation nasal spray,suspension furosemide 40 mg tablet 1.5 tab PO QAM 02/18/21 02/18/21 Unknown History gabapentin 400 mg capsule 400 mg PO BEDTIME 02/18/21 02/18/21 Unknown History insulin aspart U-100 100 unit/mL 6 unit SUBCUT TID 02/18/21 02/18/21 Unknown History (3 mL) subcutaneous pen (Novolog Flexpen U-100 Insulin aspart) insulin glargine 100 unit/mL (3 16 unit SUBCUT BEDTIME 02/18/21 02/18/21 Unknown History mL) subcutaneous pen (Lantus Solostar U-100 Insulin) omeprazole 20 mg capsule,delayed 20 mg PO DAILY 02/18/21 02/18/21 Unknown History release sitagliptin 100 mg tablet (Januvia) 100 mg PO DAILY 02/18/21 02/18/21 Unknown History Physical Exam Vital Signs: Vital Signs: Last Vital Signs Temp 97.6 F 02/19/21 07:19 Pulse 87 02/19/21 09:50 Resp 19 02/19/21 07:19 BP 118/65 02/19/21 09:50 Pulse Ox 98 02/19/21 07:19 Body Mass Index 35.5 Const: General: no acute distress Nutritional Appearance: obese Orientation/consciousness: patient oriented x3 Limitations: no limitations HENMT: Head: Yes normal to inspection Ears: hearing grossly normal bilaterally Mouth: Normal oral and palatal mucosa present Eyes: Sclerae: sclerae normal Pupils: Equal, round and reactive pupils present Neck: Neck: Yes normal visual inspection Chest: Chest palpation & inspection: normal inspection of the chest Resp: Effort & Inspection: normal respiratory effort Auscultation: clear to auscultation bilaterally Cardio: Palpation: normal PMI Rate: regular rate Rhythm: regular rhythm Heart sounds: S1 normal heart sound present, S2 normal heart sound present and no murmurs GI: Palpation (GI): Soft to palpation, nontender and No hepatosplenomegaly present Auscultation: normal bowel sounds Rectal Exam - Female: deferred Skin: General skin exam: no rashes or lesions noted Neuro: General: patient oriented x3, gait normal and moves all extremities Cranial nerves: Yes Equal, round and reactive pupils present and Yes Normal hearing present Speech: No Abnormal speech present Psych: Appearance: grossly normal Mental Status: mental status grossly normal Results Labs CBC & Chem 7: 02/19/21 05:22 02/19/21 08:34 Labs: Short CBC 02/18/21 02/18/21 02/19/21 Range/Units 13:20 18:40 05:22 WBC 3.6 L 3.5 L (4.8-10.8) X10*3/uL Hgb 7.6 L 8.4 L 8.3 L (12.0-16.0) g/dl Hct 24.8 L 26.6 L 26.7 L (37.0-47.0) % Plt Count 161 165 (160-400) X10*3/uL BMP 02/19/21 08:34 Sodium 137 Potassium 4.4 Chloride 108 Carbon Dioxide 23 BUN 16 Creatinine 0.93 Calcium 8.8 Assessment and Plan (1) Anemia: Status: Acute (2) GERD (gastroesophageal reflux disease): Status: Acute (3) Constipation: Status: Acute (4) Hepatosplenomegaly: Status: Acute 60 YF with obesity, HLD, Htn, COPD, Type 2 DM, seizure disorder admitted after a syncopal episode and noted to have acute on chronic CANDIDA without over GI bleeding Anemia can be due to upper versus lower GI blood loss or celiac disease. Her H & H has been stable since hospitalization. RECOMMENDATIONS: 1. Repeat CBC in the am. If stable and no further syncopal episodes, pt can be discharged home. If she has further decrease in H & H, please contact Dr Bee to schedule an EGD 2. Check TTG and Ig A with am labs - order placed 3. Pt is scheduled for a colonoscopy on 03/05/21 - I will schedule same day EGD for evaluation of CANDIDA. Procedures Date of Service Date of Service: 02/19/21
--- NOTE | 2021-02-19 11:35 | P.PNIM_ITS ---
Subjective Subjective Date of Service: 02/19/21 Interval History: No lightheadedness Tolerated transfusion No seizures No syncope Review of Systems Review of Systems: Yes all other systems are reviewed and are negative Physical Exam Vital Signs: Vital Signs: Last Vital Signs Temp 97.6 F 02/19/21 07:19 Pulse 87 02/19/21 09:50 Resp 19 02/19/21 07:19 BP 118/65 02/19/21 09:50 Pulse Ox 98 02/19/21 07:19 Body Mass Index 35.5 Gen: in no acute distress HEENT: sclera anicteric, pale conjunctivae, moist mucus membranes Neck: supple Lungs: clear to auscultation bilaterally Heart: regular rate and rhythm, no murmurs Abd: soft, non-tender, non-distended Ext: no edema Skin: warm/well-perfused Neuro: alert and oriented x3, no focal findings Psych: appropriate affect Objective Data Active Medications Acetaminophen (Acetaminophen 325 Mg Tablet) 650 mg PO Q6H PRN PRN Reason: Pain, Mild (Pain Scale 1-3) Albuterol Sulfate (Albuterol Sulfate 90 Mcg 8 Gm Inhaler) 2 puff INHALE QID PRN PRN Reason: Wheezing Aspirin (Aspirin Enteric Coated 81 Mg Tablet.) 81 mg PO BEDTIME [facility] Last Admin: 02/18/21 20:42 Dose: 81 mg Documented by: MARLEY Atorvastatin Calcium (Atorvastatin Calcium 40 Mg Tablet) 40 mg PO BEDTIME [facility] Last Admin: 02/18/21 20:42 Dose: 40 mg Documented by: MARLEY Benzonatate (Benzonatate 100 Mg Capsule) 100 mg PO TID PRN PRN Reason: Cough Calcium Carbonate/Cholecalciferol (Calcium + Vitamin D 250 Mg Tablet) 250 mg PO BID [facility] Last Admin: 02/19/21 08:37 Dose: 250 mg Documented by: WILFREDO Dextrose (Dextrose 50 % 25 Gm/50 Ml Vial) 25 gm IVPUSH Q15M PRN; Protocol PRN Reason: per Hypoglycemia Standing Ord. Fluticasone Propionate (Fluticasone Propionate 100 Mcg Blst.W.Dev) 2 puff INHALE RBID [facility] Last Admin: 02/18/21 20:43 Dose: Not Given Documented by: MARLEY Non-Admin Reason: Patient Refused Fluticasone Propionate (Fluticasone Propionate Nasal 16 Gm Stem) 2 spray NOSTRIL-B DAILY [facility] Gabapentin (Gabapentin 400 Mg Capsule) 400 mg PO BEDTIME [facility] Last Admin: 02/18/21 20:42 Dose: 400 mg Documented by: MARLEY Glucose (Glucose Gel 15 Gm Gel..Gram.) 15 gm PO Q15M PRN; Protocol PRN Reason: per Hypoglycemia Standing Ord. Insulin Glargine (Insulin Glargine,Hum.Rec.Anlog 100 Unit/Ml 10 Ml Vial) 16 unit SUBCUT BEDTIME [facility] Last Admin: 02/18/21 20:43 Dose: 16 unit Documented by: MARLEY Insulin Human Lispro (Insulin Lispro 100 Unit/Ml 3 Ml Vial) 6 unit SUBCUT TIDAC [facility] Last Admin: 02/19/21 07:34 Dose: Not Given Documented by: WILFREDO Non-Admin Reason: per md Insulin Human Lispro (Insulin Lispro 100 Unit/Ml 3 Ml Vial) 0 unit SUBCUT QIDACHS [facility]; Protocol Last Admin: 02/19/21 07:34 Dose: Not Given Documented by: WILFREDO Non-Admin Reason: No Insulin Coverage Loratadine (Loratadine 10 Mg Tablet) 10 mg PO DAILY [facility] Last Admin: 02/19/21 08:37 Dose: 10 mg Documented by: WILFREDO Non-Formulary Medication (Imipramine Hcl) 50 mg PO BEDTIME [facility] Omeprazole (Omeprazole 20 Mg Capsule.Dr) 20 mg PO DAILY@0630 [facility] Last Admin: 02/19/21 05:38 Dose: 20 mg Documented by: MARLEY Oxcarbazepine (Oxcarbazepine 150 Mg Tablet) 150 mg PO BID [facility] Last Admin: 02/19/21 08:36 Dose: 150 mg Documented by: WILFREDO Pharmacy Consult (Consult Rx Perform Med Rec) 1 each MISCELLANE ONCE PRN PRN Reason: Consult order Sertraline HCl (Sertraline Hcl 50 Mg Tablet) 50 mg PO DAILY [facility] Last Admin: 02/19/21 08:36 Dose: 50 mg Documented by: WILFREDO Sitagliptin Phosphate (Sitagliptin Phosphate 100 Mg Tablet) 100 mg PO DAILY [facility] Last Admin: 02/19/21 08:37 Dose: 100 mg Documented by: WILFREDO Sodium Chloride (0.9 % Sodium Chloride Flush 3 Ml Syringe) 3 ml IVFLUSH QSHIFT [facility] Last Admin: 02/19/21 08:36 Dose: 3 ml Documented by: WILFREDO Topiramate (Topiramate 25 Mg Tablet) 50 mg PO BID [facility] Last Admin: 02/19/21 08:37 Dose: 50 mg Documented by: WILFREDO Vitamin D (Cholecalciferol (Vitamin D3) 25 Mcg Tablet) 50 mcg PO DAILY [facility] Last Admin: 02/19/21 08:36 Dose: 50 mcg Documented by: WILFREDO Labs CBC & Chem 7: 02/19/21 05:22 02/19/21 08:34 Labs: Laboratory Results - last 24 hr 02/18/21 02/18/21 02/18/21 05:39 13:20 14:09 MCV 75.8 L MCH 23.2 L MCHC 30.6 L RDW 17.9 H Plt Count 161 MPV 8.4 L Immature Gran % (Auto) Neut % (Auto) Lymph % (Auto) [place] % (Auto) Eos % (Auto) Baso % (Auto) Lymph # (Auto) [place] # (Auto) Eos # (Auto) Baso # (Auto) Abs Immat Gran (auto) Absolute Neuts (auto) Absolute Nucleated RBC 0.000 Nucleated RBC % (auto) 0.0 Absolute Retic 0.048 Percent Retic 1.5 Immature Retic Fraction 20.0 H Retic Hgb Equivalent 29.0 L Anion Gap Estim Creat Clear Calc Estimated GFR POC Glucose Random Glucose Calcium Iron 12 L TIBC 261 % Saturation 5 L Unsat Iron Binding 249 Ferritin 19 Urine Osmolality Ur Random Sodium Ur Random Potassium Ur Random Chloride Urine Creatinine Blood Type A Positive Antibody Screen NEGATIVE Crossmatch See Detail 02/18/21 02/18/21 02/18/21 15:27 15:27 18:46 MCV MCH MCHC RDW Plt Count MPV Immature Gran % (Auto) Neut % (Auto) Lymph % (Auto) [place] % (Auto) Eos % (Auto) Baso % (Auto) Lymph # (Auto) [place] # (Auto) Eos # (Auto) Baso # (Auto) Abs Immat Gran (auto) Absolute Neuts (auto) Absolute Nucleated RBC Nucleated RBC % (auto) Absolute Retic Percent Retic Immature Retic Fraction Retic Hgb Equivalent Anion Gap Estim Creat Clear Calc Estimated GFR POC Glucose 103 Random Glucose Calcium Iron TIBC % Saturation Unsat Iron Binding Ferritin Urine Osmolality 206 L Ur Random Sodium < 20.0 Ur Random Potassium 22.3 Ur Random Chloride < 20.0 Urine Creatinine 43.88 Blood Type Antibody Screen Crossmatch 02/18/21 02/19/21 02/19/21 20:19 05:22 07:16 MCV 78.5 L MCH 24.4 L MCHC 31.1 RDW 19.0 H Plt Count 165 MPV 9.0 L Immature Gran % (Auto) 0.3 Neut % (Auto) 57.5 Lymph % (Auto) 32.8 [place] % (Auto) 9.4 Eos % (Auto) 0.0 Baso % (Auto) 0.0 Lymph # (Auto) 1.2 [place] # (Auto) 0.3 Eos # (Auto) 0.0 Baso # (Auto) 0.0 Abs Immat Gran (auto) 0.01 Absolute Neuts (auto) 2.0 Absolute Nucleated RBC 0.000 Nucleated RBC % (auto) 0.0 Absolute Retic Percent Retic Immature Retic Fraction Retic Hgb Equivalent Anion Gap Estim Creat Clear Calc Estimated GFR POC Glucose 119 H 85 Random Glucose Calcium Iron TIBC % Saturation Unsat Iron Binding Ferritin Urine Osmolality Ur Random Sodium Ur Random Potassium Ur Random Chloride Urine Creatinine Blood Type Antibody Screen Crossmatch 02/19/21 08:34 MCV MCH MCHC RDW Plt Count MPV Immature Gran % (Auto) Neut % (Auto) Lymph % (Auto) [place] % (Auto) Eos % (Auto) Baso % (Auto) Lymph # (Auto) [place] # (Auto) Eos # (Auto) Baso # (Auto) Abs Immat Gran (auto) Absolute Neuts (auto) Absolute Nucleated RBC Nucleated RBC % (auto) Absolute Retic Percent Retic Immature Retic Fraction Retic Hgb Equivalent Anion Gap 10 L Estim Creat Clear Calc 56.2 Estimated GFR > 60 POC Glucose Random Glucose 89 Calcium 8.8 Iron TIBC % Saturation Unsat Iron Binding Ferritin Urine Osmolality Ur Random Sodium Ur Random Potassium Ur Random Chloride Urine Creatinine Blood Type Antibody Screen Crossmatch Assessment and Plan (1) Hyponatremia: Status: Acute (2) Syncope: Status: Acute Assessment and Plan: hospital d#2 60yo F with HTN, DM2, HLD, obesity, seizure disorder on topiramate + oxcarbazepine admitted after unwitnessed syncopal episode microcytic anemia hyponatremia # syncope # seizure disorder - orthostatic VS normal, no events on telemetry; breakthrough seizure? oxcarbazepine + topirmate levels pending, Neuro consult, EEG pending. continue oxcarbazepine + topiramate # iron deficiency anemia - GI consult pending, no hx of prior scope # hyponatremia - resolved # DM2 - sitagliptin, basal/bolus insulin # HTN - continue amlodipine # HLD - continue statin # VTE ppx - SCDs # dispo - anticipate home with PT Quality Stroke Does the patient have a stroke diagnosis?: No VTE Prior VTE?: No VTE Risk Level:: Medical - moderate - high VTE Device Contraindication: N/A - Device Ordered VTE Drug Contraindication: Treatment Not Indicated
[2021-02-19 12:02] LABS: Glucose, Whole Blood 99 mg/dL (60-115)
[2021-02-19] MEDS: Fluticasone Propionate Nasal 16 GM SPRAY 2 SPRAY NOSTRIL-B (13:53)
--- NOTE | 2021-02-19 14:07 | MHC.CM.PN ---
Per ROUNDS discussion, Patient will be switched from Observation to Inpatient today; IMM addressed with Patient at bedside and original has been given to her and a copy has been placed on the chart.
[2021-02-19 16:22] LABS: Glucose, Whole Blood 103 mg/dL (60-115)
--- NOTE | 2021-02-19 17:43 | P.CNNE_ITS ---
History of Present Illness Data of Consult Service Date: 02/19/21 Primary Care Provider: Inez Dewitt NP HPI Reason for consult: Syncopal episode Recurrent syncopal episodes since a 38-year-old daughter on February 12 after choking on a piece of steak while the patient tried Heimlich maneuver and CPR. She's had 4 or 5 episodes where she suddenly passes out and ends up onn the floor. His bruised her left forearm. No tongue biting or incontinence. She comes out very clear. In the past she has had seizure-like episodes. The last one of which was 4 months ago. No details are available. She has been taking topiramate 50 mg twice a day, which she says helps her. She has multiple medical problems including asthma, GERD, hypertension, hyperlipidemia, diabetes, restless leg syndrome, migraines obstructive sleep apnea and probable seizures. In the past she has also been diagnosed with episodes that were thought to be possible TIAs where she has presented with left arm weakness and facial droop and difficulty communicating last about 20 min. and then resolving. The last one of those was in July of 2017. She smokes a pack of cigarettes a day. After the last episode she had an MRI of the brain which was normal, and an MRA 2 years ago which was unremarkable except for slight narrowing of one of the posterior cerebral arteries. On this occasion. She's had a CAT scan of the brain and neck which is unremarkable. Review of Systems 2 Review of Systems: Denies any recent fever chills or decrease in appetite respiratory denies any shortness of breath coverage production cardiovascular denies chest pain gastrointestinal denies any dysphagia abdominal pain nausea vomiting or diarrhea genitourinary denies any dysuria frequency or hematuria musculoskeletal denies any joint pain or swelling neuropsych denies any weakness or seizures all other systems reviewed are negative Yes all other systems are reviewed and are negative [facility] Past Medical History Medical History Acute epigastric pain Asthma BMI 40.0-44.9, adult Chronic kidney disease, stage 3 COPD (chronic obstructive pulmonary disease) Diabetes Essential hypertension Family history of GERD History of migraine Hyperlipidemia Hyperlipidemia LDL goal <70 Hypertension JANET (obstructive sleep apnea) Osteoarthritis Renal failure Restless leg syndrome Seizures TIA (transient ischemic attack) Type 2 diabetes mellitus with chronic kidney disease Family History Family History Father Hx of gout Diabetes Mother Diabetes Daughter Pre-diabetes Brother Cancer Surgical History Surgical History H/O esophagogastroduodenoscopy History of appendectomy History of carpal tunnel release History of cholecystectomy History of colonoscopy Hx of total knee arthroplasty Social History Social History Household Members: None Housing: Apartment Alcohol intake: never Patient Tobacco Use Status: Current everyday Tobacco user Cigarette Packs Per Day: 1 Cigarettes Per Day: 20.0 Smoked in Last 30 Days: Yes Patient Interested in Nicotine Replacement: Yes Use of substances other than those prescribed or required for medical reasons: No Currently Displaying Signs/Symptoms of Drug Intoxication Withdrawal: No Advance Directives: No Advance Directives Information Provided: No Do you have thoughts of harming others: None Do you have a plan to hurt others: No Plan Recently lost weight without trying: No Patient : No service: No Current occupational status: disabled Meds Allergies Allergy/AdvReac Type Severity Reaction Status Date / Time hydrocodone [From Vicodin] Allergy Mild ITCHING Verified 01/15/21 15:07 SHANAE Inhibitors Allergy Unknown UNKNOWN Verified 01/15/21 15:07 [SHANAE INHIBITORS] acetaminophen [Vicodin] Allergy Unknown Unknown Verified 01/15/21 15:07 ENVIROMENTAL Allergy Mild HAYFEVER Uncoded 01/15/21 15:07 lysol wipes Allergy Mild Hives Uncoded 01/15/21 15:07 Vicodin Allergy Mild Itching Uncoded 01/15/21 15:07 [place] Allergy Unknown NEPHROPATHY Uncoded 01/15/21 15:07 Active Medications: Current Medications Acetaminophen (Acetaminophen 325 Mg Tablet) 650 mg PO Q6H PRN PRN Reason: Pain, Mild (Pain Scale 1-3) Albuterol Sulfate (Albuterol Sulfate 90 Mcg 8 Gm Inhaler) 2 puff INHALE QID PRN PRN Reason: Wheezing Aspirin (Aspirin Enteric Coated 81 Mg Tablet.) 81 mg PO BEDTIME INDU Last Admin: 02/18/21 20:42 Dose: 81 mg Documented by: Atorvastatin Calcium (Atorvastatin Calcium 40 Mg Tablet) 40 mg PO BEDTIME INDU Last Admin: 02/18/21 20:42 Dose: 40 mg Documented by: Benzonatate (Benzonatate 100 Mg Capsule) 100 mg PO TID PRN PRN Reason: Cough Calcium Carbonate/Cholecalciferol (Calcium + Vitamin D 250 Mg Tablet) 250 mg PO BID [facility] Last Admin: 02/19/21 08:37 Dose: 250 mg Documented by: Dextrose (Dextrose 50 % 25 Gm/50 Ml Vial) 25 gm IVPUSH Q15M PRN; Protocol PRN Reason: per Hypoglycemia Standing Ord. Fluticasone Propionate (Fluticasone Propionate 100 Mcg Blst.W.Dev) 2 puff INHALE RBID [facility] Last Admin: 02/19/21 14:41 Dose: Not Given Documented by: Fluticasone Propionate (Fluticasone Propionate Nasal 16 Gm [place]) 2 spray NOSTRIL-B DAILY [facility] Last Admin: 02/19/21 13:53 Dose: 2 spray Documented by: Gabapentin (Gabapentin 400 Mg Capsule) 400 mg PO BEDTIME [facility] Last Admin: 02/18/21 20:42 Dose: 400 mg Documented by: Glucose (Glucose Gel 15 Gm Gel..Gram.) 15 gm PO Q15M PRN; Protocol PRN Reason: per Hypoglycemia Standing Ord. Insulin Glargine (Insulin Glargine,Hum.Rec.Anlog 100 Unit/Ml 10 Ml Vial) 16 unit SUBCUT BEDTIME [facility] Last Admin: 02/18/21 20:43 Dose: 16 unit Documented by: Insulin Human Lispro (Insulin Lispro 100 Unit/Ml 3 Ml Vial) 6 unit SUBCUT TIDAC [facility] Last Admin: 02/19/21 16:45 Dose: Not Given Documented by: Insulin Human Lispro (Insulin Lispro 100 Unit/Ml 3 Ml Vial) 0 unit SUBCUT QIDACHS [facility]; Protocol Last Admin: 02/19/21 17:30 Dose: Not Given Documented by: Loratadine (Loratadine 10 Mg Tablet) 10 mg PO DAILY [facility] Last Admin: 02/19/21 08:37 Dose: 10 mg Documented by: Non-Formulary Medication (Imipramine Hcl) 50 mg PO BEDTIME [facility] Omeprazole (Omeprazole 20 Mg Capsule.) 20 mg PO DAILY@0630 [facility] Last Admin: 02/19/21 05:38 Dose: 20 mg Documented by: Oxcarbazepine (Oxcarbazepine 150 Mg Tablet) 150 mg PO BID [facility] Last Admin: 02/19/21 08:36 Dose: 150 mg Documented by: Pharmacy Consult (Consult Rx Perform Med Rec) 1 each MISCELLANE ONCE PRN PRN Reason: Consult order Sertraline HCl (Sertraline Hcl 50 Mg Tablet) 50 mg PO DAILY [facility] Last Admin: 02/19/21 08:36 Dose: 50 mg Documented by: Sitagliptin Phosphate (Sitagliptin Phosphate 100 Mg Tablet) 100 mg PO DAILY [facility] Last Admin: 02/19/21 08:37 Dose: 100 mg Documented by: Sodium Chloride (0.9 % Sodium Chloride Flush 3 Ml Syringe) 3 ml IVFLUSH QSHIFT [facility] Last Admin: 02/19/21 08:36 Dose: 3 ml Documented by: Topiramate (Topiramate 25 Mg Tablet) 50 mg PO BID [facility] Last Admin: 02/19/21 08:37 Dose: 50 mg Documented by: Vitamin D (Cholecalciferol (Vitamin D3) 25 Mcg Tablet) 50 mcg PO DAILY [facility] Last Admin: 02/19/21 08:36 Dose: 50 mcg Documented by: Home Medications Medication Instructions Recorded Confirmed Last Taken Type amlodipine 10 mg tablet 1 tab PO BEDTIME 01/12/20 02/18/21 Unknown History atorvastatin 40 mg tablet 1 tab PO BEDTIME 01/12/20 02/18/21 Unknown History calcium carbonate 600 mg (1,500 1 tab PO BID 01/12/20 02/18/21 Unknown History mg)-vitamin D3 400 unit tablet cetirizine 10 mg tablet 1 tab PO QAM 01/12/20 02/18/21 Unknown History olmesartan 40 mg tablet 40 mg PO DAILY 01/12/20 02/18/21 Unknown History oxcarbazepine 150 mg tablet 1 tab PO BID 01/12/20 02/18/21 Unknown History topiramate 50 mg tablet 50 mg PO BID 01/12/20 02/18/21 Unknown History sertraline 50 mg tablet 50 mg PO DAILY 08/20/20 02/18/21 Unknown History albuterol sulfate 90 mcg/actuation 2 puff PO QID PRN 02/18/21 02/18/21 Unknown History aerosol inhaler aspirin 81 mg tablet,delayed 1 tab PO BEDTIME 02/18/21 02/18/21 Unknown History release cholecalciferol (vitamin D3) 50 1 cap PO QAM 02/18/21 02/18/21 Unknown History mcg (2,000 unit) capsule fluticasone propionate 110 2 puff INHALATION BID 02/18/21 02/18/21 Unknown History mcg/actuation HFA aerosol inhaler (Flovent HFA) fluticasone propionate 50 2 spray INTRANASAL DAILY 02/18/21 02/18/21 Unknown History mcg/actuation nasal spray,suspension furosemide 40 mg tablet 1.5 tab PO QAM 02/18/21 02/18/21 Unknown History gabapentin 400 mg capsule 400 mg PO BEDTIME 02/18/21 02/18/21 Unknown History insulin aspart U-100 100 unit/mL 6 unit SUBCUT TID 02/18/21 02/18/21 Unknown History (3 mL) subcutaneous pen (Novolog Flexpen U-100 Insulin aspart) insulin glargine 100 unit/mL (3 16 unit SUBCUT BEDTIME 02/18/21 02/18/21 Unknown History mL) subcutaneous pen (Lantus Solostar U-100 Insulin) omeprazole 20 mg capsule,delayed 20 mg PO DAILY 02/18/21 02/18/21 Unknown Hi story release sitagliptin 100 mg tablet (Januvia) 100 mg PO DAILY 02/18/21 02/18/21 Unknown History Physical Exam Vital Signs: Vital Signs: Last Vital Signs Temp 98.3 F 02/19/21 12:00 Pulse 87 02/19/21 15:20 Resp 18 02/19/21 15:20 BP 127/57 L 02/19/21 15:20 Pulse Ox 99 02/19/21 15:20 Body Mass Index 35.5 Const: Other: Appearance: Alert. Oriented X3. No acute distress. Eyes: Pupils equal, round and reactive to light. ENT: Pharynx normal. Neck: On C-collar, no palpable step-offs, no C-spine tenderness on palpation. CVS: Normal heart rate and rhythm. Pulses normal. Normal S1 and S2 Respiratory: No respiratory distress. Breath sounds normal. No Wheezing. No ral es Abdomen: Soft and nontender. No rigidity. No distention. good BS x4 Skin: Skin warm and dry. Mild ecchymosis on the left side of forehead Extremities: +2 pitting edema, No Lacerations. No Rash Neuro: Oriented X 3. No motor deficit. No sensory deficit. Moving all extermities. No slurred speech. Neuro: Other: She is alert and oriented with normal intellectual functions. Cranial nerves II through XII aree normal. Muscle tone and strength are normal in all 4 extremities, deep tendon reflexes symmetrical 1+. Plantar response are flexor. Gait and coordination normal. Results Labs CBC & Chem 7: 02/19/21 05:22 02/19/21 08:34 Labs: Short CBC 02/18/21 02/19/21 Range/Units 18:40 05:22 WBC 3.5 L (4.8-10.8) X10*3/uL Hgb 8.4 L 8.3 L (12.0-16.0) g/dl Hct 26.6 L 26.7 L (37.0-47.0) % Plt Count 165 (160-400) X10*3/uL BMP 02/19/21 08:34 Sodium 137 Potassium 4.4 Chloride 108 Carbon Dioxide 23 BUN 16 Creatinine 0.93 Calcium 8.8 Assessment and Plan (1) Hyponatremia: Status: Acute (2) Syncope: Status: Acute Recurrent syncopal episodes in the situation of stress with the recent tragedy with tragic loss of her daughter 60s able after choking on a piece of steak in her presence. She has a diagnosis of possible seizures in the past. Her workup is negative and exam is normal. Her EEG he shows some occasional isolated small spike and slow wave discharges in the frontal region which may be suggestive of seizures therefore, I recommend that she continue with the topiramate, increase the dose to 100 mg twice a day. An outpatient 24 hour ambulatory EEG is also recommended. Holter monitor for one week if these episodes continue. hospital d#2 60yo F with HTN, DM2, HLD, obesity, seizure disorder on topiramate + oxcarbazepine admitted after unwitnessed syncopal episode microcytic anemia hyponatremia # syncope # seizure disorder - orthostatic VS normal, no events on telemetry; breakthrough seizure? oxcarbazepine + topirmate levels pending, Neuro consult, EEG pending. continue oxcarbazepine + topiramate # iron deficiency anemia - GI consult pending, no hx of prior scope # hyponatremia - resolved # DM2 - sitagliptin, basal/bolus insulin # HTN - continue amlodipine # HLD - continue statin # VTE ppx - SCDs # dispo - anticipate home with PT Procedures Date of Service Date of Service: 02/19/21
[2021-02-19 20:40] LABS: Glucose, Whole Blood 99 mg/dL (60-115)
[2021-02-19] MEDS: Atorvastatin Calcium 40 MG TABLET PO (21:15)
[2021-02-19] MEDS: Aspirin Enteric Coated 81 MG TABLET.DR PO (21:15)
[2021-02-19] MEDS: Gabapentin 400 MG CAPSULE PO (21:16)
[2021-02-19] MEDS: Topiramate 25 MG TABLET 100 MG PO (21:16)
[2021-02-20] VITALS: BP 125/60; PULSE 66; RESP 17; TEMP 36.6; O2SAT 95
[2021-02-20 03:31] VITALS: BP 110/58; PULSE 90; RESP 17; TEMP 36.1; O2SAT 94
[2021-02-20 05:50] LABS: Hematocrit 27.9 % (37.0-47.0); Hemoglobin 8.6 g/dl (12.0-16.0); Mean Corpuscular HGB Conc 30.8 g/dl (31.0-35.0); Mean Corpuscular Volume 77.9 fL (80.0-98.0); Mean Platelet Volume 9.1 fL (9.4-12.3); Platelet Count 174 X10*3/uL (160-400); Red Blood Count 3.58 X10*6/uL (4.20-5.50); White Blood Count 4.2 X10*3/uL (4.8-10.8)
[2021-02-20 06:06] LABS: Anion Gap 10 (12-20); Blood Urea Nitrogen 18 mg/dL (9-16); Calcium 8.9 mg/dL (8.4-10.2); Carbon Dioxide 23 mmol/L (22-29); Chloride 107 mmol/L (96-108); Creatinine Clr Calc Pharmacy 56.2; Estimated Glomerular Filt Rate > 60; Glucose Random 104 mg/dL (60-115); Potassium 4.8 mmol/L (3.3-5.1); Sodium 135 mmol/L (135-145)
[2021-02-20] MEDS: Omeprazole 20 MG CAPSULE.DR PO (06:11)
[2021-02-20 06:38] LABS: Folate 4.1 ng/mL (> or = 4.0); Vitamin B12 296 pg/mL (200-900)
[2021-02-20 07:08] VITALS: BP 108/55; PULSE 85; RESP 19; TEMP 36.4; O2SAT 95
[2021-02-20 07:25] LABS: Glucose, Whole Blood 103 mg/dL (60-115)
[2021-02-20] MEDS: Fluticasone Propionate 100 MCG BLST.W.DEV 2 PUFF INHALE (08:01)
[2021-02-20 08:02] VITALS: PULSE 85; O2SAT 95
[2021-02-20] MEDS: Insulin Lispro 100 UNIT/ML 3 ML VIAL 6 UNIT SUBCUT (08:12)
[2021-02-20] MEDS: Sertraline HCL 50 MG TABLET PO (08:13)
[2021-02-20] MEDS: OXcarbazepine 150 MG TABLET PO (08:13)
[2021-02-20] MEDS: Cholecalciferol (Vitamin D3) 25 MCG TABLET 50 MCG PO (08:13)
[2021-02-20] MEDS: Loratadine 10 MG TABLET PO (08:13)
[2021-02-20] MEDS: SITagliptin Phosphate 100 MG TABLET PO (08:14)
[2021-02-20] MEDS: Topiramate 25 MG TABLET 100 MG PO (08:14)
[2021-02-20] MEDS: Calcium + Vitamin D 250 MG TABLET PO (08:14)
[2021-02-20] MEDS: Fluticasone Propionate Nasal 16 GM SPRAY 2 SPRAY NOSTRIL-B (08:15)
[2021-02-20 09:09] VITALS: BP 108/55; PULSE 85; O2SAT 95
--- NOTE | 2021-02-20 09:17 | PM.DS ---
DS: Providers Provider Date of Service: 02/20/21 Date of admission: 02/19/21 13:30 Primary care physician: Inez Dewitt NP Consults: 02/18/21 16:33 Consult to Gastroenterology Routine Consulting Provider: Jose Cruz Reason for consultation: anemia Has provider been notified: No 02/19/21 07:36 Consult to Neurology Routine Consulting Provider: [facility] Reason for consultation: syncope ?sz DS: Diagnosis Discharge Diagnosis (1) Anemia: Status: Acute (2) GERD (gastroesophageal reflux disease): Status: Acute (3) Constipation: Status: Acute (4) Hepatosplenomegaly: Status: Acute DS: Summary Hospital Course Hospital Course: Patient was admitted for unwitnessed syncopal episode, possible orthostatic hypotension versus breakthrough seizure. Her orthostatic vital signs were negative, however blood pressure was on the low side and her amlodipine and olmesartan have been held for now. she had no significant events on telemetry, she was seen by neuro, EEG did show some spikes, therefore, her Topamax was increased from 50 mg b.i.d. to 100 mg b.i.d. she was seen by GI for iron deficiency anemia, they recommended outpatient follow-up. Patient is feeling better will be discharged home. Time Spent with Patient Time attestation: Total time spent providing and/or coordinating discharge services: Discharge coordination time: Greater than 30 minutes Quality: Stroke Does the patient have a stroke diagnosis?: No Physical Exam Vital Signs: Vital Signs: Last Vital Signs Temp 97.5 F 02/20/21 07:08 Pulse 85 02/20/21 09:09 Resp 19 02/20/21 07:08 BP 108/55 L 02/20/21 09:09 Pulse Ox 95 02/20/21 09:09 Body Mass Index 35.5 General: AO X 3, no acute distress Resp: CTA bilateral, no accessory muscles used CVS: S1,S2,RRR GI: soft, non tender, non distended Neuro: motor grossly intact, alert Psych: appropriate affect, appropriate insight DS: Data Data Completed and Pending Labs on day of discharge: Laboratory Results - last 24 hr 02/19/21 02/19/21 02/19/21 11:37 16:07 19:19 WBC RBC Hgb Hct MCV MCH MCHC RDW Plt Count MPV Absolute Nucleated RBC Nucleated RBC % (auto) Sodium Potassium Chloride Carbon Dioxide Anion Gap BUN Creatinine Estim Creat Clear Calc Estimated GFR POC Glucose 99 103 99 Random Glucose Calcium Vitamin B12 Folate 02/20/21 02/20/21 02/20/21 05:20 05:20 05:20 WBC 4.2 L RBC 3.58 L Hgb 8.6 L Hct 27.9 L MCV 77.9 L MCH 24.0 L MCHC 30.8 L RDW 19.0 H Plt Count 174 MPV 9.1 L Absolute Nucleated RBC 0.000 Nucleated RBC % (auto) 0.0 Sodium 135 Potassium 4.8 Chloride 107 Carbon Dioxide 23 Anion Gap 10 L BUN 18 H Creatinine 0.93 Estim Creat Clear Calc 56.2 Estimated GFR > 60 POC Glucose Random Glucose 104 Calcium 8.9 Vitamin B12 296 Folate 4.1 02/20/21 07:10 WBC RBC Hgb Hct MCV MCH MCHC RDW Plt Count MPV Absolute Nucleated RBC Nucleated RBC % (auto) Sodium Potassium Chloride Carbon Dioxide Anion Gap BUN Creatinine Estim Creat Clear Calc Estimated GFR POC Glucose 103 Random Glucose Calcium Vitamin B12 Folate Discharge Plan Discharge Patient Disposition: Home, Self-Care Discharge Diagnosis: syncope Referrals: Inez Dewitt NP [Primary Care Provider] - 1 Week Kishor Sevilla MD [Physician] - 1 Week Dionicio Russell MD [Physician] - 1 Week Discharge Medications: Continued oxcarbazepine 150 mg tablet 1 tab PO BID RF: 0 calcium carbonate-vitamin D3 600 mg(1,500mg) -400 unit tablet 1 tab PO BID RF: 0 atorvastatin 40 mg tablet 1 tab PO BEDTIME RF: 0 cetirizine 10 mg tablet 1 tab PO QAM RF: 0 gabapentin 400 mg capsule 400 mg PO BEDTIME RF: 0 furosemide 40 mg tablet 1.5 tab PO QAM RF: 0 aspirin 81 mg tablet,delayed release (DR/EC) 1 tab PO BEDTIME RF: 0 albuterol sulfate 90 mcg/actuation HFA aerosol inhaler 2 puff PO QID PRN (Reason: Wheezing) RF: 0 fluticasone propionate 50 mcg/actuation spray,suspension 2 spray intranasal DAILY RF: 0 Flovent HFA 110 mcg/actuation HFA aerosol inhaler 2 puff inhalation BID RF: 0 insulin aspart U-100 [Novolog Flexpen U-100 Insulin] 100 unit/mL (3 mL) insulin pen 6 unit subcut TID RF: 0 Lantus Solostar U-100 Insulin 100 unit/mL (3 mL) insulin pen 16 unit subcut BEDTIME RF: 0 omeprazole 20 mg capsule,delayed release(DR/EC) 20 mg PO DAILY RF: 0 Januvia 100 mg tablet 100 mg PO DAILY RF: 0 cholecalciferol (vitamin D3) 50 mcg (2,000 unit) capsule 1 cap PO QAM RF: 0 sertraline 50 mg tablet 50 mg PO DAILY RF: 0 imipramine HCl 25 mg tablet 50 mg PO BEDTIME 30 Days Qty: 60 RF: 6 Changed topiramate 50 mg tablet 100 mg PO BID Qty: 120 RF: 0 Discontinued amlodipine 10 mg tablet 1 tab PO BEDTIME RF: 0 olmesartan 40 mg tablet 40 mg PO DAILY RF: 0 Discharge Orders: Discharge Order (Routine); Ordered 02/20/21 Ordered By: Robert Stafford Diet: advance to usual diet Activity on Discharge: As tolerated Stand Alone Forms: Patient Portal Discharge page Care Plan Goals: avoid syncope Health Concerns: syncope Plan of Treatment: hold amlodipine and olmesartan for now, as blood pressure has been on low side, may need to restart if persistently elevated. increase topamax to 100mg bid, follow up with gi and neuro Assessment: see above
--- NOTE | 2021-02-20 09:41 | MHC.CM.PN ---
Patient has been medically cleared for dc to home today, no services.IMM addressed yesterday.
[2021-02-20 11:29] VITALS: BP 130/60; PULSE 85; RESP 18; TEMP 36.3; O2SAT 94
[2021-02-20 11:57] LABS: Glucose, Whole Blood 96 mg/dL (60-115)
--- NOTE | 2021-02-20 13:53 | MHC.CM.PN ---
Per RN's request, has supplied Patient with a taxi voucher for transportation to home (she missed her ride home).
[2021-02-21 12:26] LABS: Transglutaminase IgA <1.0 U/mL
[2021-02-21 13:32] LABS: Immunoglobulin A 225 mg/dL (47-310)
[2021-02-22 14:41] LABS: Topiramate 5.7 mcg/mL (see note)
[2021-02-23 18:41] LABS: Oxcarbazepine 5.8 mcg/mL (8.0-35.0)
== END 2021-02-20 14:33 | disposition home or self-care (01) | DRG 101 ==
LOC: HO.ED 13:33 → HO.EDOVER 14:53 → HO.S3 17:17
PROVIDERS: Emergency Medicine; Family Medicine; Internal Medicine Gastroenterology; Admitting Provider Nurse Practitioner Acute Care; Emergency Provider Emergency Medicine; PCP Nurse Practitioner Family; Visit Provider Internal Medicine
DX: G40.909 Epilepsy, unspecified, not intractable, without status epilepticus (principal); E87.1 Hypo-osmolality and hyponatremia; K21.9 Gastro-esophageal reflux disease without esophagitis; M19.90 Unspecified osteoarthritis, unspecified site; E66.9 Obesity, unspecified; Z68.35 Body mass index [BMI] 35.0-35.9, adult; F17.210 Nicotine dependence, cigarettes, uncomplicated; Z71.6 Tobacco abuse counseling; E86.0 Dehydration; E78.5 Hyperlipidemia, unspecified; G25.81 Restless legs syndrome; R16.2 Hepatomegaly with splenomegaly, not elsewhere classified; K59.00 Constipation, unspecified; I10 Essential (primary) hypertension; D50.9 Iron deficiency anemia, unspecified; Z20.822 Contact with and (suspected) exposure to COVID-19; Z88.5 Allergy status to narcotic agent; Z88.6 Allergy status to analgesic agent; Z79.4 Long term (current) use of insulin; Z79.899 Other long term (current) drug therapy
CPT/HCPCS: 36415; 70450; 71045; 72125; 80048; 80076; 80201; 80307; 80339; 81001; 82077; 82272; 82436; 82607; 82728; 82746; 82784; 82947; 83516; 83540; 83880; 83935; 84133; 84300; 84484; 85014; 85018; 85025; 85027; 85045; 85610; 86850; 86900; 86901; 86923; 87635; 93005; 95816; 97116; 97162; 99285; P9016

== ENCOUNTER → 2021-05-09 07:56 | Day surgery (SDC) | payer OTHER, SELFPAY ==
[2021-05-01 20:32] VITALS: BMI 35.1
--- NOTE | 2021-05-08 10:54 | HO.ANESPROP2 ---
HPI - Anesthesia Eval Consult details Narrative: 61yo F for Upper Endoscopy and Colonoscopy COUNTS INCLUDE 234 BEDS AT THE [facility] Active Problems Active Problems: All Active Problems (Updated 05/01/21 @ 20:17 by Kayleen George RN) Esophagitis (Acute) Hypoxia (Acute) GERD (gastroesophageal reflux disease) (Acute) Acute respiratory failure with hypoxia (Acute) Hepatosplenomegaly (Acute) Constipation (Acute) Morbid obesity (Acute) Abdominal cramping (Acute) Primary osteoarthritis of right knee (Acute) Chronic back pain (Acute) Heart failure (Acute) Colon cancer screening (Acute) Fall (Acute) Chronic hyponatremia (Acute) Anemia (Acute) Syncope (Acute) Seizure (Acute) Obesity (Acute) Hyponatremia (Acute) COPD (chronic obstructive pulmonary disease) (Acute) Type 2 diabetes mellitus with chronic kidney disease (Acute) Chronic kidney disease, stage 3 (Acute) Essential hypertension (Acute) Hyperlipidemia LDL goal <70 (Acute) BMI 40.0-44.9, adult (Acute) Past Medical History Medical History (Updated 05/01/21 @ 20:17 by Kayleen George RN) Acute epigastric pain Asthma BMI 40.0-44.9, adult CHF (congestive heart failure) Chronic kidney disease, stage 3 COPD (chronic obstructive pulmonary disease) Diabetes Essential hypertension Family history of GERD History of migraine Hyperlipidemia Hyperlipidemia LDL goal <70 Hypertension JANET (obstructive sleep apnea) Osteoarthritis Renal failure Restless leg syndrome Seizures TIA (transient ischemic attack) Type 2 diabetes mellitus with chronic kidney disease Family History Family History Father Hx of gout Diabetes Mother Diabetes Daughter Pre-diabetes Brother Cancer Surgical History Surgical History (Updated 05/01/21 @ 20:30 by Kayleen George RN) H/O esophagogastroduodenoscopy History of appendectomy History of arthroscopy of knee History of carpal tunnel release History of cholecystectomy History of colonoscopy History of lumpectomy of right breast Hx of total knee arthroplasty Social History Social History Household Members: None Housing: Apartment Alcohol intake: never Patient Tobacco Use Status: Current everyday Tobacco user Tobacco use type: Cigarette Cigarette Packs Per Day: 1 Cigarettes Per Day: 20.0 Years Smoked: 45 Smoked in Last 30 Days: Yes Patient Interested in Nicotine Replacement: No Use of substances other than those prescribed or required for medical reasons: No Advance Directives: No Advance Directives Information Provided: No Advance Directives on File: No Recently lost weight without trying: No Nutrition Risks: No Nutritional Risk service: No Current occupational status: disabled Meds Allergies Allergy/AdvReac Type Severity Reaction Status Date / Time hydrocodone [From Vicodin] Allergy Mild ITCHING Verified 05/02/21 14:33 SHANAE Inhibitors Allergy Unknown UNKNOWN Verified 05/02/21 14:33 [SHANAE INHIBITORS] ENVIROMENTAL Allergy Mild HAYFEVER Uncoded 05/02/21 14:33 lysol wipes Allergy Mild Hives Uncoded 05/02/21 14:33 [place] Allergy Unknown NEPHROPATHY Uncoded 05/02/21 14:33 Home Medications Medication Instructions Recorded Confirmed Last Taken Type atorvastatin 40 mg tablet 1 tab PO BEDTIME 01/12/20 05/01/21 Unknown History calcium carbonate 600 mg-vitamin 1 tab PO BID 01/12/20 05/01/21 Unknown History D3 10 mcg (400 unit) tablet cetirizine 10 mg tablet 1 tab PO QAM 01/12/20 05/01/21 Unknown History oxcarbazepine 150 mg tablet 1 tab PO BID 01/12/20 05/01/21 Unknown History sertraline 50 mg tablet 50 mg PO DAILY 08/20/20 05/01/21 Unknown History albuterol sulfate 90 mcg/actuation 2 puff PO QID PRN 02/18/21 05/01/21 Unknown History aerosol inhaler aspirin 81 mg tablet,delayed 1 tab PO BEDTIME 02/18/21 05/01/21 Unknown History release cholecalciferol (vitamin D3) 50 1 cap PO QAM 02/18/21 05/01/21 Unknown History mcg (2,000 unit) capsule fluticasone propionate 110 2 puff INHALATION BID 02/18/21 05/01/21 Unknown History mcg/actuation HFA aerosol inhaler (Flovent HFA) fluticasone propionate 50 2 spray INTRANASAL DAILY 02/18/21 05/01/21 Unknown History mcg/actuation nasal spray,suspension furosemide 40 mg tablet 1.5 tab PO QAM 02/18/21 05/01/21 Unknown History gabapentin 400 mg capsule 400 mg PO BEDTIME 02/18/21 05/01/21 Unknown History insulin aspart U-100 100 unit/mL 6 unit SUBCUT TID 02/18/21 05/01/21 Unknown History (3 mL) subcutaneous pen (Novolog Flexpen U-100 Insulin aspart) insulin glargine 100 unit/mL (3 16 unit SUBCUT BEDTIME 02/18/21 05/01/21 Unknown History mL) subcutaneous pen (Lantus Solostar U-100 Insulin) omeprazole 20 mg capsule,delayed 20 mg PO DAILY 02/18/21 05/01/21 Unknown History release sitagliptin 100 mg tablet (Januvia) 100 mg PO DAILY 02/18/21 05/01/21 Unknown History amlodipine 10 mg tablet 1 tab PO QPM 05/01/21 05/01/21 Unknown History Exam Exam Date and Time: May 08, 2021 1054 Height,Weight and Vital Signs: Height 4 ft 10 in Weight 76.204 kg Pertinent Lab Results Pertinent Lab Results: Laboratory Tests 02/20/21 02/20/21 05:20 05:20 WBC 4.2 L Hgb 8.6 L Hct 27.9 L Plt Count 174 Sodium 135 Potassium 4.8 Chloride 107 Carbon Dioxide 23 BUN 18 H Creatinine 0.93 Narrative Narrative: EKG 01/2021 Vent. Rate : 089 BPM ? ? Atrial Rate : 089 BPM ?? P-R Int : 166 ms? QRS Dur : 088 ms ? ? QT Int : 364 ms ? ? ? P-R-T Axes : 070 059 045 degrees ?? QTc Int : 442 ms ? Normal sinus rhythm RSR' or QR pattern in V1 suggests right ventricular conduction delay Borderline ECG When compared with ECG of 12-JAN-2020 06:26, No significant change was found Assessment and Plan Assessment Anesthesia Assessment: Chart Reviewed
[2021-05-09 08:44] VITALS: BP 128/59; PULSE 94; RESP 19; TEMP 36.4; O2SAT 96; BMI 32.5
[2021-05-09 08:46] LABS: Glucose, Whole Blood 106 mg/dL (60-115)
--- NOTE | 2021-05-09 08:59 | PC.NURSE ---
this rn witnessed patient coughing, asked about symptoms. states productive couch x1 week. took a rapid covid test at home 1 week ago and was negative. denies any other symtpoms. moved to isolation room and patient swabbed for covid.
[2021-05-09 09:20] LABS: COVID-19 Test Negative (Negative); IDNOW Serial# 55D5AD1C
[2021-05-09] MEDS: Lactated Ringers 1,000 ML 50 ML IVCONT (09:24)
--- NOTE | 2021-05-09 09:38 | PC.NURSE ---
cancelled per anesthesia, pt to reschedule once symptoms are no longer present
== END ==
PROVIDERS: Anesthesiology; PCP Nurse Practitioner Family; Visit Provider Internal Medicine Gastroenterology
DX: Z12.11 Encounter for screening for malignant neoplasm of colon (principal); Z53.8 Procedure and treatment not carried out for other reasons; E11.9 Type 2 diabetes mellitus without complications; Z20.822 Contact with and (suspected) exposure to COVID-19
CPT/HCPCS: 82947; 87635

== ENCOUNTER 2021-09-04 13:35 | Day surgery (SDC) | payer OTHER, SELFPAY ==
--- NOTE | 2021-07-03 11:57 | HO.ANESPROP2 ---
HPI - Anesthesia Eval Consult details Narrative: 61yo F for Upper Endoscopy and Colonoscopy [facility] Active Problems Active Problems: All Active Problems (Updated 05/01/21 @ 20:17 by Kayleen George RN) Esophagitis (Acute) Hypoxia (Acute) GERD (gastroesophageal reflux disease) (Acute) Acute respiratory failure with hypoxia (Acute) Hepatosplenomegaly (Acute) Constipation (Acute) Morbid obesity (Acute) Abdominal cramping (Acute) Primary osteoarthritis of right knee (Acute) Chronic back pain (Acute) Heart failure (Acute) Colon cancer screening (Acute) Fall (Acute) Chronic hyponatremia (Acute) Anemia (Acute) Syncope (Acute) Seizure (Acute) Obesity (Acute) Hyponatremia (Acute) COPD (chronic obstructive pulmonary disease) (Acute) Type 2 diabetes mellitus with chronic kidney disease (Acute) Chronic kidney disease, stage 3 (Acute) Essential hypertension (Acute) Hyperlipidemia LDL goal <70 (Acute) BMI 40.0-44.9, adult (Acute) Past Medical History Medical History (Updated 05/01/21 @ 20:17 by Kayleen George RN) Acute epigastric pain Asthma BMI 40.0-44.9, adult CHF (congestive heart failure) Chronic kidney disease, stage 3 COPD (chronic obstructive pulmonary disease) Diabetes Essential hypertension Family history of GERD History of migraine Hyperlipidemia Hyperlipidemia LDL goal <70 Hypertension JANET (obstructive sleep apnea) Osteoarthritis Renal failure Restless leg syndrome Seizures TIA (transient ischemic attack) Type 2 diabetes mellitus with chronic kidney disease Family History Family History Father Hx of gout Diabetes Mother Diabetes Daughter Pre-diabetes Brother Cancer Surgical History Surgical History (Updated 05/01/21 @ 20:30 by Kayleen George RN) H/O esophagogastroduodenoscopy History of appendectomy History of arthroscopy of knee History of carpal tunnel release History of cholecystectomy History of colonoscopy History of lumpectomy of right breast Hx of total knee arthroplasty Social History Social History Household Members: None Housing: Apartment Alcohol intake: never Patient Tobacco Use Status: Current everyday Tobacco user Tobacco use type: Cigarette Cigarette Packs Per Day: 1 Cigarettes Per Day: 20.0 Years Smoked: 45 service: No Current occupational status: disabled Meds Allergies Allergy/AdvReac Type Severity Reaction Status Date / Time hydrocodone [From Vicodin] Allergy Mild ITCHING Verified 07/01/21 10:07 SHANAE Inhibitors Allergy Unknown UNKNOWN Verified 07/01/21 10:07 [SHANAE INHIBITORS] ENVIROMENTAL Allergy Mild HAYFEVER Uncoded 07/01/21 10:07 lysol wipes Allergy Mild Hives Uncoded 07/01/21 10:07 [place] Allergy Unknown NEPHROPATHY Uncoded 07/01/21 10:07 Home Medications Medication Instructions Recorded Confirmed Last Taken Type atorvastatin 40 mg tablet 1 tab PO BEDTIME 01/12/20 07/01/21 Unknown History calcium carbonate 600 mg-vitamin 1 tab PO BID 01/12/20 07/01/21 Unknown History D3 10 mcg (400 unit) tablet cetirizine 10 mg tablet 1 tab PO QAM 01/12/20 07/01/21 Unknown History oxcarbazepine 150 mg tablet 1 tab PO BID 01/12/20 07/01/21 Unknown History sertraline 50 mg tablet 50 mg PO DAILY 08/20/20 07/01/21 Unknown History albuterol sulfate 90 mcg/actuation 2 puff PO QID PRN 02/18/21 07/01/21 Unknown History aerosol inhaler aspirin 81 mg tablet,delayed 1 tab PO BEDTIME 02/18/21 07/01/21 Unknown History release cholecalciferol (vitamin D3) 50 1 cap PO QAM 02/18/21 07/01/21 Unknown History mcg (2,000 unit) capsule fluticasone propionate 110 2 puff INHALATION BID 02/18/21 07/01/21 Unknown History mcg/actuation HFA aerosol inhaler (Flovent HFA) fluticasone propionate 50 2 spray INTRANASAL DAILY 02/18/21 07/01/21 Unknown History mcg/actuation nasal spray,suspension furosemide 40 mg tablet 1.5 tab PO QAM 02/18/21 07/01/21 Unknown History gabapentin 400 mg capsule 400 mg PO BEDTIME 02/18/21 07/01/21 Unknown History insulin aspart U-100 100 unit/mL 6 unit SUBCUT TID 02/18/21 07/01/21 Unknown History (3 mL) subcutaneous pen (Novolog Flexpen U-100 Insulin aspart) insulin glargine 100 unit/mL (3 16 unit SUBCUT BEDTIME 02/18/21 07/01/21 Unknown History mL) subcutaneous pen (Lantus Solostar U-100 Insulin) amlodipine 10 mg tablet 1 tab PO QPM 05/01/21 07/01/21 Unknown History Exam Exam Date and Time: July 03, 2021 1157 Pertinent Lab Results Pertinent Lab Results: Laboratory Tests 02/20/21 02/20/21 05:20 05:20 WBC 4.2 L Hgb 8.6 L Hct 27.9 L Plt Count 174 Sodium 135 Potassium 4.8 Chloride 107 Carbon Dioxide 23 BUN 18 H Creatinine 0.93 Narrative Narrative: EKG 01/2021 Vent. Rate : 089 BPM ? ? Atrial Rate : 089 BPM ?? P-R Int : 166 ms? QRS Dur : 088 ms ? ? QT Int : 364 ms ? ? ? P-R-T Axes : 070 059 045 degrees ?? QTc Int : 442 ms ? Normal sinus rhythm RSR' or QR pattern in V1 suggests right ventricular conduction delay Borderline ECG When compared with ECG of 12-JAN-2020 06:26, No significant change was found
--- NOTE | 2021-09-03 13:07 | P.CONAN_ITS ---
Documented by User: Trudi Conley NP 09/03/21 13:10 HPI - Anesthesia Eval Consult details Narrative: 61yo F for Upper Endoscopy and Colonoscopy [facility] Active Problems Active Problems: All Active Problems (Updated 05/01/21 @ 20:17 by Kayleen George, NIGEL) Esophagitis (Acute) Hypoxia (Acute) GERD (gastroesophageal reflux disease) (Acute) Acute respiratory failure with hypoxia (Acute) Hepatosplenomegaly (Acute) Constipation (Acute) Morbid obesity (Acute) Abdominal cramping (Acute) Primary osteoarthritis of right knee (Acute) Chronic back pain (Acute) Heart failure (Acute) Colon cancer screening (Acute) Fall (Acute) Chronic hyponatremia (Acute) Anemia (Acute) Syncope (Acute) Seizure (Acute) Obesity (Acute) Hyponatremia (Acute) COPD (chronic obstructive pulmonary disease) (Acute) Type 2 diabetes mellitus with chronic kidney disease (Acute) Chronic kidney disease, stage 3 (Acute) Essential hypertension (Acute) Hyperlipidemia LDL goal <70 (Acute) BMI 40.0-44.9, adult (Acute) Past Medical History Medical History Acute epigastric pain Asthma BMI 40.0-44.9, adult CHF (congestive heart failure) Chronic kidney disease, stage 3 COPD (chronic obstructive pulmonary disease) Diabetes Essential hypertension Family history of GERD History of migraine Hyperlipidemia Hyperlipidemia LDL goal <70 Hypertension JANET (obstructive sleep apnea) Osteoarthritis Renal failure Restless leg syndrome Seizures TIA (transient ischemic attack) Type 2 diabetes mellitus with chronic kidney disease Family History Family History Father Hx of gout Diabetes Mother Diabetes Daughter Pre-diabetes Brother Cancer Surgical History Surgical History H/O esophagogastroduodenoscopy History of appendectomy History of arthroscopy of knee History of carpal tunnel release History of cholecystectomy History of colonoscopy History of lumpectomy of right breast Hx of total knee arthroplasty Social History Social History Household Members: None Housing: Apartment Alcohol intake: never Patient Tobacco Use Status: Current everyday Tobacco user Tobacco use type: Cigarette Cigarette Packs Per Day: 1 Cigarettes Per Day: 20.0 Years Smoked: 45 Use of substances other than those prescribed or required for medical reasons: No Are you DNR?: No Advance Directives: No Advance Directives Information Provided: Yes Recently lost weight without trying: No service: No Current occupational status: disabled Meds Allergies Allergy/AdvReac Type Severity Reaction Status Date / Time hydrocodone [From Vicodin] Allergy Mild ITCHING Verified 08/30/21 12:47 SHANAE Inhibitors Allergy Unknown UNKNOWN Verified 08/30/21 12:47 [SHANAE INHIBITORS] ENVIROMENTAL Allergy Mild HAYFEVER Uncoded 08/30/21 12:47 lysol wipes Allergy Mild Hives Uncoded 08/30/21 12:47 [place] Allergy Unknown NEPHROPATHY Uncoded 08/30/21 12:47 Home Medications Medication Instructions Recorded Confirmed Last Taken Type atorvastatin 40 mg tablet 1 tab PO BEDTIME 01/12/20 07/01/21 Unknown History calcium carbonate 600 mg-vitamin 1 tab PO BID 01/12/20 07/01/21 Unknown History D3 10 mcg (400 unit) tablet cetirizine 10 mg tablet 1 tab PO QAM 01/12/20 07/01/21 Unknown History oxcarbazepine 150 mg tablet 1 tab PO BID 01/12/20 07/01/21 Unknown History sertraline 50 mg tablet 50 mg PO DAILY 08/20/20 07/01/21 Unknown History albuterol sulfate 90 mcg/actuation 2 puff PO QID PRN Wheezing 02/18/21 07/01/21 Unknown History aerosol inhaler aspirin 81 mg tablet,delayed 1 tab PO BEDTIME 02/18/21 07/01/21 Unknown History release cholecalciferol (vitamin D3) 50 1 cap PO QAM 02/18/21 07/01/21 Unknown History mcg (2,000 unit) capsule fluticasone propionate 110 2 puff inhalation BID 02/18/21 07/01/21 Unknown History mcg/actuation HFA aerosol inhaler (Flovent HFA) fluticasone propionate 50 2 spray intranasal DAILY 02/18/21 07/01/21 Unknown History mcg/actuation nasal spray,suspension furosemide 40 mg tablet 1.5 tab PO QAM 02/18/21 07/01/21 Unknown History gabapentin 400 mg capsule 400 mg PO BEDTIME 02/18/21 07/01/21 Unknown History insulin aspart U-100 100 unit/mL 6 unit subcut TID 02/18/21 07/01/21 Unknown History (3 mL) subcutaneous pen (Novolog Flexpen U-100 Insulin aspart) insulin glargine 100 unit/mL (3 16 unit subcut BEDTIME 02/18/21 07/01/21 Unknown History mL) subcutaneous pen (Lantus Solostar U-100 Insulin) amlodipine 10 mg tablet 1 tab PO QPM 05/01/21 07/01/21 Unknown History Exam Exam Date and Time: September 03, 2021 1307 Narrative Narrative: EKG 01/2021 Vent. Rate : 089 BPM ? ? Atrial Rate : 089 BPM ?? P-R Int : 166 ms? QRS Dur : 088 ms ? ? QT Int : 364 ms ? ? ? P-R-T Axes : 070 059 045 degrees ?? QTc Int : 442 ms ? Normal sinus rhythm RSR' or QR pattern in V1 suggests right ventricular conduction delay Borderline ECG When compared with ECG of 12-JAN-2020 06:26, No significant change was found EEG 01/2021 IMPRESSION:? This EEG is considered mildly abnormal due to isolated small spike and slow wave discharges in a bifrontal distribution that could correlate with a seizure disorder.? Clinical correlation is suggested. Assessment and Plan Assessment Anesthesia Assessment: Chart Reviewed Documented by User: Merissa Mccabe MD 09/04/21 14:21 [facility] Past Medical History Medical History Acute epigastric pain Asthma BMI 40.0-44.9, adult CHF (congestive heart failure) Chronic kidney disease, stage 3 COPD (chronic obstructive pulmonary disease) Diabetes Essential hypertension Family history of GERD History of migraine Hyperlipidemia Hyperlipidemia LDL goal <70 Hypertension JANET (obstructive sleep apnea) Osteoarthritis Renal failure Restless leg syndrome Seizures TIA (transient ischemic attack) Type 2 diabetes mellitus with chronic kidney disease Family History Family History Father Hx of gout Diabetes Mother Diabetes Daughter Pre-diabetes Brother Cancer Family history of problems with anesthesia: No Surgical History Surgical History H/O esophagogastroduodenoscopy History of appendectomy History of arthroscopy of knee History of carpal tunnel release History of cholecystectomy History of colonoscopy History of lumpectomy of right breast Hx of total knee arthroplasty History of Problems with Anesthesia: No Social History Social History Household Members: None Housing: Apartment Alcohol intake: never Patient Tobacco Use Status: Current everyday Tobacco user Tobacco use type: Cigarette Cigarette Packs Per Day: 1 Cigarettes Per Day: 20.0 Years Smoked: 45 Use of substances other than those prescribed or required for medical reasons: No Are you DNR?: No Advance Directives: No Advance Directives Information Provided: Yes Recently lost weight without trying: No service: No Current occupational status: disabled Meds Allergies Allergy/AdvReac Type Severity Reaction Status Date / Time hydrocodone [From Vicodin] Allergy Mild ITCHING Verified 08/30/21 12:47 SHANAE Inhibitors Allergy Unknown UNKNOWN Verified 08/30/21 12:47 [SHANAE INHIBITORS] ENVIROMENTAL Allergy Mild HAYFEVER Uncoded 08/30/21 12:47 lysol wipes Allergy Mild Hives Uncoded 08/30/21 12:47 [place] Allergy Unknown NEPHROPATHY Uncoded 08/30/21 12:47 Home Medications Medication Instructions Recorded Confirmed Last Taken Type atorvastatin 40 mg tablet 1 tab PO BEDTIME 01/12/20 07/01/21 Unknown History calcium carbonate 600 mg-vitamin 1 tab PO BID 01/12/20 07/01/21 Unknown History D3 10 mcg (400 unit) tablet cetirizine 10 mg tablet 1 tab PO QAM 01/12/20 07/01/21 Unknown History oxcarbazepine 150 mg tablet 1 tab PO BID 01/12/20 07/01/21 Unknown History sertraline 50 mg tablet 50 mg PO DAILY 08/20/20 07/01/21 Unknown History albuterol sulfate 90 mcg/actuation 2 puff PO QID PRN Wheezing 02/18/21 07/01/21 Unknown History aerosol inhaler aspirin 81 mg tablet,delayed 1 tab PO BEDTIME 02/18/21 07/01/21 Unknown History release cholecalciferol (vitamin D3) 50 1 cap PO QAM 02/18/21 07/01/21 Unknown History mcg (2,000 unit) capsule fluticasone propionate 110 2 puff inhalation BID 02/18/21 07/01/21 Unknown History mcg/actuation HFA aerosol inhaler (Flovent HFA) fluticasone propionate 50 2 spray intranasal DAILY 02/18/21 07/01/21 Unknown History mcg/actuation nasal spray,suspension furosemide 40 mg tablet 1.5 tab PO QAM 02/18/21 07/01/21 Unknown History gabapentin 400 mg capsule 400 mg PO BEDTIME 02/18/21 07/01/21 Unknown History insulin aspart U-100 100 unit/mL 6 unit subcut TID 02/18/21 07/01/21 Unknown History (3 mL) subcutaneous pen (Novolog Flexpen U-100 Insulin aspart) insulin glargine 100 unit/mL (3 16 unit subcut BEDTIME 02/18/21 07/01/21 Unknown History mL) subcutaneous pen (Lantus Solostar U-100 Insulin) amlodipine 10 mg tablet 1 tab PO QPM 05/01/21 07/01/21 Unknown History Exam Airway Mallampati Class: II TM Dist: >3cm Neck ROM: Full Denture: Upper and Lower Heart: rrr Lungs: cta Assessment and Plan Assessment Anesthesia Assessment: Anesthesia Plan Discussed Final Anesthetic Review Family History of Problems with Anesthesia: No History of Problems with Anesthesia: No NPO: Yes ASA Class: III Final Preanesthetic Review: No Changes in Pt Med Stat, Meds/Allgs Chart Reviewed and Consent Obtained/Reviewed Patient Risk: Intermediate Procedure Risk: Intermediate Anesthetic Plan Anesthetic Plan: MAC: Disposition: Standard PACU
[2021-09-04 13:44] VITALS: BMI 33.6
--- NOTE | 2021-09-04 14:18 | P.HPSUR_ITS ---
Pre-Procedural Eval Section A Date of Service: 09/04/21 Section B Chief Complaint: anemia Relevant Family History (Specify if Yes): No Relevant Social History: Tobacco Use Present Medications: see Short Stay Collaborative assessment Medical History: Significant History (Acute epigastric pain Asthma BMI 40.0- 44.9, adult CHF (congestive heart failure) Chronic kidney disease, stage 3 COPD (chronic obstructive pulmonary disease) Diabetes Essential hypertension Family history of GERD History of migraine Hyperlipidemia Hyperlipidemia LDL goal <70 Hypertension JANET (obstru) History of Previous Operations: Relevant previous surgery/procedure and date(s) (H/O esophagogastroduodenoscopy History of appendectomy History of arthroscopy of knee History of carpal tunnel release History of cholecystectomy History of colonoscopy History of lumpectomy of right breast Hx of total knee arthroplasty) Allergies: Allergies Allergy/AdvReac Type Severity Reaction Status Date / Time hydrocodone [From Vicodin] Allergy Mild ITCHING Verified 08/30/21 12:47 SHANAE Inhibitors Allergy Unknown UNKNOWN Verified 08/30/21 12:47 [SHANAE INHIBITORS] ENVIROMENTAL Allergy Mild HAYFEVER Uncoded 08/30/21 12:47 lysol wipes Allergy Mild Hives Uncoded 08/30/21 12:47 [place] Allergy Unknown NEPHROPATHY Uncoded 08/30/21 12:47 Review of Systems Sugical H&P ROS: Negative: Constitution, Cardiovascular, Respiratory, Neurological, Psychiatric, Hem-Onc, Allergic/Immunologic, Gastrointestinal, Genitourinary, Musculoskeletal, Integumentary, Endocrine and Eyes/Ears/Nose/Throat Exam Surgical H&P Exam: Normal: HEENT, Normal: Heart, Normal: Lungs, Normal: Extremities, Normal: Abdomen, Normal: Skin and Normal: Neurological Exam Comment: obese Plan Diagnosis/Plan: Unchanged I have reviewed the history and physical and performed a pertinent physical examination on my patient. No changes have occurred unless specified.
[2021-09-04 14:25] VITALS: BP 111/51; PULSE 98; RESP 20; TEMP 36.8; O2SAT 96
[2021-09-04] MEDS: Lactated Ringers 1,000 ML 50 ML IVCONT (14:27)
[2021-09-04 14:35] LABS: Glucose, Whole Blood 107 mg/dL (60-115)
[2021-09-04 14:35] LABS: Hematocrit 31.9 % (37.0-47.0); Hemoglobin 10.7 g/dl (12.0-16.0); Mean Corpuscular HGB Conc 33.5 g/dl (31.0-35.0); Mean Corpuscular Hemoglobin 28.8 pg (27.0-33.0); Mean Corpuscular Volume 85.8 fL (80.0-98.0); Mean Platelet Volume 9.1 fL (9.4-12.3); Platelet Count 152 X10*3/uL (160-400); Red Blood Count 3.72 X10*6/uL (4.20-5.50); Red Cell Distribution Width 13.2 % (11.0-16.0); White Blood Count 5.3 X10*3/uL (4.8-10.8)
--- NOTE | 2021-09-04 14:46 | PM.OP ---
Brief Operative Note Date of Service: 09/04/21 Pre-op diagnosis: anemia Post-op diagnosis: same Procedure: see op note Surgeon: Paul Bee MD Anesthesia: MAC Was an [employer] History [employer] used for this Procedure?: No Estimated blood loss (mL): 0 Condition: stable Disposition: PACU
--- NOTE | 2021-09-04 14:46 | W.PM.OPN ---
Operative Note Operative Note Date of Service: 09/04/21 Narrative: Operative Information Procedure Description: EGD, Colonoscopy Indication: anemia Anesthesia: MAC FLEXIBLE TRANSORAL UPPER GASTROINTESTINAL ENDOSCOPY AND COLONOSCOPY PROCEDURE NOTE UPPER ENDOSCOPY Consent: Indications for the procedure and potential complications of bleeding, perforation, reaction to medications and missed diagnosis were discussed with the patient and informed consent was obtained. Instrument: Olympus GIF H 190 J mid size upper endoscope Monitoring: Vital signs and clinical assessment, continuous EKG monitoring, Pulse oximetry, Carbon Dioxide monitoring and blood pressure monitoring were done throughout the procedure. Procedure: The patient was placed in the left lateral decubitis position and pre-procedure medications were administered and a bite block was placed. The endoscope was inserted into the mouth and advanced under direct vision to the third part of duodenum. A careful inspection was made as the upper endoscope was withdrawn including a retroflexed examination of the proximal stomach; Findings and interventions are described below. Findings: Larynx:normal Esophagus: GE junction at 38 cm, diaphragm hiatus at 38 cm, irregular z line with possible short segment barretts, bx taken Stomach: Normal mucosa. Biopsies were obtained. Grade 2 flap valve on retroflexed examination of the cardia. Small camacho topped sessile polyp 5-6 mm removed with cold forceps Duodenum: Normal bulb and descending duodenum, bx taken Intervention: Biopsies as noted above COLONOSCOPY Instrument: Olympus variable stiffness pediatric scope 190L Colonoscopy Monitoring: Vital signs and clinical assessment, continuous EKG monitoring, Pulse oximetry, Carbon Dioxide monitoring and blood pressure monitoring were done throughout the procedure. Colon withdrawal time was 12 minutes. Procedure: The patient was placed in the left lateral decubitis position and pre-procedure medications were administered. After a digital rectal examination of the ano-rectum, the video colonoscope was inserted into the rectum and advanced through the colon to the cecum/TI. The colonoscope was slowly withdrawn in a retrograde panoramic fashion and the colon mucosa was carefully examined including a retroflexed view of the rectum. Findings and interventions are described below. Procedure Difficulty:moderate due to angled sigmoid from diverticulosis Findings: Terminal Ileum-normal Cecum:normal Ascending Colon: 6-8 mm sessile polyp removed with cold forceps Transverse Colon -normal Descending Colon: few diverticula Sigmoid Colon: severe diverticulosis, with luminal narrowing and mucosal hypertrophy, 6-8 mm sessile polyp removed with cold snare Rectum: Retroflexion with small internal hemorrhoids, grade I Anorectum - normal Colon preparation: [place] Bowel Preparation Scale Right colon; 2 Transverse colon: 2 Left colon; 2 (0 = Unprepared colon segment with mucosa not seen due to solid stool that cannot be cleared. 1 = Portion of mucosa of the colon segment seen, but other areas of the colon segment not well seen due to staining, residual stool and/or opaque liquid. 2 = Minor amount of residual staining, small fragments of stool and/or opaque liquid, but mucosa of colon segment seen well. 3 = Entire mucosa of colon segment seen well with no residual staining, small fragments of stool or opaque liquid) Impression and Post Procedure Diagnosis: Endoscopy Findings: possible barretts gastric polyp Colonoscopy Findings: polyps internal hemorrhoids diverticular disease Plan: Await Pathology results Repeat Colonoscopy in 5-7 years if adenomatous polyps, 10 yrs if hyperplastic or earlier if clinically indicated High fiber diet leaflet avoid straining at stool, epsom salts and sitz bath, anusol supps or cream if bx neg then capsule endoscopy Above findings were reviewed with the patient and relevant handouts were provided if indicated.
[2021-09-04 15:03] LABS: Anion Gap 12 (12-20); Blood Urea Nitrogen 38 mg/dL (9-16); Carbon Dioxide 19 mmol/L (22-29); Chloride 102 mmol/L (96-108); Creatinine Clr Calc Pharmacy 41.7; Estimated Glomerular Filt Rate 46; Glucose Fasting 98 mg/dL (60-99); Potassium 3.8 mmol/L (3.3-5.1); Sodium 129 mmol/L (135-145)
[2021-09-04 15:18] VITALS: BP 100/63; PULSE 94; RESP 18; TEMP 36.6; O2SAT 99
[2021-09-04 15:33] VITALS: BP 103/59; PULSE 90; RESP 18; O2SAT 96
[2021-09-04 15:44] VITALS: BP 102/58; PULSE 91; RESP 18; TEMP 36.6; O2SAT 95
== END 2021-09-04 15:59 | disposition home or self-care (01) ==
PROVIDERS: Nurse Practitioner; PCP Nurse Practitioner Family; Visit Provider Internal Medicine Gastroenterology
PROC: (CPT 45385; principal; 2021-09-04 15:30)
DX: D64.9 Anemia, unspecified (principal); D12.2 Benign neoplasm of ascending colon; K63.5 Polyp of colon; K57.30 Diverticulosis of large intestine without perforation or abscess without bleeding; K64.0 First degree hemorrhoids; K31.7 Polyp of stomach and duodenum; K44.9 Diaphragmatic hernia without obstruction or gangrene; J44.9 Chronic obstructive pulmonary disease, unspecified; G47.33 Obstructive sleep apnea (adult) (pediatric); E11.22 Type 2 diabetes mellitus with diabetic chronic kidney disease; I13.0 Hypertensive heart and chronic kidney disease with heart failure and stage 1 through stage 4 chronic kidney disease, or unspecified chronic kidney disease; N18.30 Chronic kidney disease, stage 3 unspecified; I50.9 Heart failure, unspecified; E78.5 Hyperlipidemia, unspecified; Z79.4 Long term (current) use of insulin; Z79.82 Long term (current) use of aspirin; Z79.51 Long term (current) use of inhaled steroids; Z79.899 Other long term (current) drug therapy; F17.210 Nicotine dependence, cigarettes, uncomplicated
CPT/HCPCS: 45385; 45380; 43239; 36415; 80048; 82947; 85027; 88305; 88342

== ENCOUNTER → 2021-09-19 13:39 | Outpatient (BNVA) | payer OTHER, SELFPAY | PROVIDERS: PCP Nurse Practitioner Primary Care; Visit Provider Nurse Practitioner | DX: D12.6 Benign neoplasm of colon, unspecified (principal) | CPT/HCPCS: 99212 ==

== ENCOUNTER 2022-03-07 08:58 | Emergency (ER) | payer OTHER, SELFPAY ==
--- NOTE | ~2022-03-07 | XR_ITS ---
EXAMINATION: XR CHEST CLINICAL INFORMATION: Chest pain. COMPARISON: 02/18/2021 chest radiograph. TECHNIQUE: 2 views of the chest were obtained. FINDINGS: No significant abnormality is noted involving the heart, lungs, mediastinum, bony thorax or soft tissues. XR/XR chest 2V IMPRESSION: No acute cardiopulmonary process.
--- NOTE | 2022-03-07 09:01 | ECG_ITS ---
Test Reason : cp Blood Pressure : / mmHG Vent. Rate : 096 BPM Atrial Rate : 096 BPM P-R Int : 158 ms QRS Dur : 084 ms QT Int : 358 ms P-R-T Axes : 074 060 066 degrees QTc Int : 452 ms Sinus rhythm with Premature supraventricular complexes Nonspecific T wave abnormality Abnormal ECG When compared with ECG of 18-FEB-2021 05:27, Premature supraventricular complexes are now Present Referred By: Generic ED Physician Electronically Signed By:NANCY BELL MD
[2022-03-07 09:08] VITALS: BP 125/75; BP 127/67; PULSE 98; PULSE 99; RESP 20; TEMP 36.9; O2SAT 98; O2SAT 99; BMI 34.0
--- OUTSIDE RECORDS SUMMARY | 2022-03-07 09:25 | XMS_ITS ---
:1960 Author Name Esdras Inez Care Team Providers Name Role Phone Inez Dewitt Unavailable Unavailable PROBLEMS Unknown Problems ALLERGIES Substance Reaction Event Type Date Status SHANAE Inhibitors Unknown Drug Allergy May, Active Vicodin Unknown Drug Allergy May, Active Yeast-related Products Unknown Drug Allergy May, Activ e Seasonale hay fever Drug Allergy May, Active Hydrocodone itching Drug Allergy May, Active Avocado (Diagnostic) nephropathy Drug Allergy May, Active Acetaminophen Unknown Drug Allergy May, Active ENCOUNTERS Encounter Location Date Diagnosis [facility] [address] [address], [place] [address] IMMUNIZATIONS No Known Immunizations SOCIAL HISTORY Qualifiers Date Current Smoker REASON FOR REFERRAL FUNCTIONAL STATUS PLAN OF CARE VITAL SIGNS MEDICATIONS Medication Instructions Dosage Frequency Start End Duration Statu s Date Date Lubiprostone 8 MCG Orally Twice a 1 capsule 12h 30 d ay(s) Active day with food and water Atorvastatin Active Calcium Olmesartan Active Medoxomil Gabapentin Active Januvia 100 MG Orally Once a 1 tablet 24h 30 day(s) Active day Calcium Active Carbonate-Vitamin D3 Methylcellulose Orally Six 2 tablets 4h Act karol (Laxative) 500 MG times a day with a full glass of water as needed Topiramate Active Omeprazole Active Ascorbic Acid Active Insulin Glargine Active Cholecalciferol Active Fluticasone Active Propionate HFA Clear Fiber Powder as directed A ctive - Dicyclomine HCl 20 Orally Three 1 tablet 8h 30 day( s) Active MG times a day OXcarbazepine Active Oxybutynin Active Chloride ER Aspirin Active Citalopram Active Hydrobromide amLODIPine Active Besylate Cetirizine HCl Active Imipramine HCl 25 Orally Once a 1 tablet 24h 30 day( s) Active MG day Insulin Aspart Active PROCEDURES No Known procedures RESULTS No Results REASON FOR VISIT Insurance Providers [facility] Member Patient Patient Patient Patient Patient Subscriber Subscriber Subscriber Group Insurance Plan Plan Plan Plan ID Relationship Address Phone Name Date of ID Name Date of No Type Insurance Insurance Insurance Coverage to Subscriber Address Phone Name Dates [employer] [phone] [employer] self [place] [id number] Care Claims [address] [facility] [place] [address] [facility] [address] MEDICAL (GENERAL) HISTORY Type Description Date Medical History asthma Medical History Chronic Kidney Disease Medical History COPD Medical History type II diabetes Medical History Hypertension Medical History Migraines Medical History Hyperlipidemia Medical History osteoarthritis Medical History Renal failure Medical History Restless leg syndrome Medical History Seizures Medical History TIA Surgical History appendectomy Surgical History carpal tunnel release Surgical History cholecystectomy Surgical History total knee arthroscopy
--- NOTE | 2022-03-07 10:16 | ED_ITS ---
HPI - Chest Pain General Chief Complaint: Chest Pain Stated Complaint: CHEST PAIN Time Seen by Provider: 03/07/22 09:38 Source: patient Mode of arrival: ambulatory Limitations: no limitations History of Present Illness HPI narrative: 61-year-old female who presents emergency department for evaluation of chest pain. The patient states that she woke up from sleep with chest pain. The pain started at 08:30 hours this morning. The patient points to her sternum when asked to localize the pain. She states the pain was a sharp, constant pain which waxed and waned in intensity. The pain was 8/10 at its worst. She states the pain lasts approximately 35 minutes and this is their 1st episode of this type of pain. She denied lightheadedness, dizziness, diaphoresis, neck, jaw or arm pain associated with the chest pain she denied nausea or vomiting. At the time my evaluation she states she was pain-free. She states that over the last 3-4 days she has been feeling well. She denied fever, chills, rhinorrhea, sore throat, cough, abdominal pain, myalgias arthralgias. Related Data Home Medications Medication Instructions Recorded Confirmed atorvastatin 40 mg tablet 1 tab PO BEDTIME 01/12/20 07/01/21 calcium carbonate 600 mg-vitamin 1 tab PO BID 01/12/20 07/01/21 D3 10 mcg (400 unit) tablet cetirizine 10 mg tablet 1 tab PO QAM 01/12/20 07/01/21 oxcarbazepine 150 mg tablet 1 tab PO BID 01/12/20 07/01/21 sertraline 50 mg tablet 50 mg PO DAILY 08/20/20 07/01/21 albuterol sulfate 90 mcg/actuation 2 puff PO QID PRN Wheezing 02/18/21 07/01/21 aerosol inhaler aspirin 81 mg tablet,delayed 1 tab PO BEDTIME 02/18/21 07/01/21 release fluticasone propionate 110 2 puff inhalation BID 02/18/21 07/01/21 mcg/actuation HFA aerosol inhaler (Flovent HFA) furosemide 40 mg tablet 1.5 tab PO QAM 02/18/21 07/01/21 insulin aspart U-100 100 unit/mL 6 unit subcut TID 02/18/21 07/01/21 (3 mL) subcutaneous pen (Novolog Flexpen U-100 Insulin aspart) insulin glargine 100 unit/mL (3 16 unit subcut BEDTIME 02/18/21 07/01/21 mL) subcutaneous pen (Lantus Solostar U-100 Insulin) alcohol swabs (Alcohol Prep Pads) pad topical QID PRN 09/19/21 amlodipine 2.5 mg tablet 2.5 mg PO QPM 09/19/21 doxycycline hyclate 100 mg capsule 100 mg PO BID 09/19/21 ferrous sulfate 325 mg (65 mg 325 mg PO DAILY 09/19/21 iron) tablet (FeroSul) olmesartan 40 mg tablet 40 mg PO DAILY 09/19/21 topiramate 100 mg tablet 100 mg PO BID 09/19/21 Previous Rx's Medication Instructions Recorded sitagliptin phosphate 100 mg 100 mg PO DAILY 30 days #30 tabs 08/15/21 tablet (Januvia) omeprazole 20 mg capsule,delayed 20 mg PO DAILY 90 days #90 caps 09/19/21 release imipramine HCl 25 mg tablet 50 mg PO BEDTIME #180 tabs 12/12/21 Allergies Allergy/AdvReac Type Severity Reaction Status Date / Time hydrocodone [From Vicodin] Allergy Mild ITCHING Verified 09/19/21 13:51 SHANAE Inhibitors Allergy Unknown UNKNOWN Verified 09/19/21 13:51 [SHANAE INHIBITORS] ENVIROMENTAL Allergy Mild HAYFEVER Uncoded 09/19/21 13:51 lysol wipes Allergy Mild Hives Uncoded 09/19/21 13:51 [place] Allergy Unknown NEPHROPATHY Uncoded 09/19/21 13:51 Review of Systems Review of Systems: Yes all other systems are reviewed and are negative [facility] Past Medical History [facility] Narrative: Social history: The patient smokes 1 pack of cigarettes per day times 45 years. She denies alcohol and drug use. Medical History Acute epigastric pain Asthma BMI 40.0-44.9, adult CHF (congestive heart failure) Chronic kidney disease, stage 3 COPD (chronic obstructive pulmonary disease) Diabetes Essential hypertension Family history of GERD History of migraine Hyperlipidemia Hyperlipidemia LDL goal <70 Hypertension JANET (obstructive sleep apnea) Osteoarthritis Renal failure Restless leg syndrome Seizures TIA (transient ischemic attack) Type 2 diabetes mellitus with chronic kidney disease Surgical History H/O esophagogastroduodenoscopy History of appendectomy History of arthroscopy of knee History of carpal tunnel release History of cholecystectomy History of colonoscopy History of lumpectomy of right breast Hx of total knee arthroplasty Family History Family History Father Hx of gout Diabetes Mother Diabetes Daughter Pre-diabetes Brother Cancer Social History Social History Household Members: None Housing: Apartment Alcohol intake: never Patient Tobacco Use Status: Current everyday Tobacco user Tobacco use type: Cigarette Cigarette Packs Per Day: 1 Cigarettes Per Day: 20.0 Years Smoked: 45 Smoked in Last 30 Days: Yes Use of substances other than those prescribed or required for medical reasons: No Advance Directives: Yes Advance Directives on File: Yes Advance Directives Date on File: 02/18/21 Patient : No service: No Current occupational status: disabled Physical Exam Vital Signs: Vital Signs: Last Vital Signs Temp 98.5 F 03/07/22 09:08 Pulse 99 03/07/22 09:08 Resp 20 03/07/22 09:08 BP 127/67 03/07/22 09:08 Pulse Ox 98 03/07/22 09:08 O2 Del Method 03/07/22 09:08 BMI result Body Mass Index 34.0 Const: General: cooperative and no acute distress Orientation/consciousness: oriented to person and oriented to place Limit ations: no limitations HEENT: Head: Yes normal to inspection, Yes normocephalic and Yes atraumatic Ears: external ears normal General nose exam: Normal external nose present Face and sinus: Yes normal facial exam Mouth: Normal oral and palatal mucosa present Throat: Yes posterior oropharynx normal Eyes: General: appearance normal, both eyes and all related structures Pupils: Equal, round and reactive pupils present Neck: Neck: Yes normal visual inspection, Yes no lymphadenopathy, Yes trachea midline and Yes supple Chest: Chest palpation & inspection: normal inspection of the chest and normal palpation of entire chest wall Resp: Effort & Inspection: normal respiratory effort and able to speak in complete sentences Auscultation: clear to auscultation bilaterally Cardio: Rate: regular rate Rhythm: regular rhythm Heart sounds: S1 normal heart sound present, S2 normal heart sound present and no murmurs GI: Inspection: Yes normal to inspection Palpation (GI): Soft to palpation, nontender and no guarding Auscultation: normal bowel sounds : General: Yes no CVA tenderness Back/Spine/Pelvis: Back: no CVA tenderness Skin: General skin exam: no rashes or lesions noted Neuro: General: oriented to person and oriented to place Cranial nerves: Yes CN's II-XII intact bilaterally and Yes Equal, round and reactive pupils present Cognition (Neuro): normal cognition Motor exam (neuro): 5/5 motor strength present throughout Extrem: General: Yes normal to inspection Psych: Appearance: grossly normal Speech and movement: Normal speech and movement present Affect: normal affect Attitude: cooperative Thought process: Normal thought process present Thought content: Normal thought content present Course Course Course Narrative: 61-year-old female who presents emergency department for evaluation of chest pain that began this morning at 08:30 hours when she woke up from sleep. Pain is a sharp, constant pain which waxes and wanes in intensity located on her mid sternal area. She should no other associated concerning symptoms. Pain lasted 35 minutes then resolved and she was pain-free at the time I evaluated her. Patient's physical examination was unremarkable. 1259: Laboratory evaluation: Anemia with an H&H of 10 and 31.2, low platelet count [id number], these are chronic. Patient's high sensitive troponin I was detectable 4.7 but not elevated. Patient's COVID and influenza were negative. Radiology evaluation: Chest x-ray revealed no acute findings. Twelve EKG revealed a sinus rhythm with no ST segment elevation depression. Patient's pain is most likely musculoskeletal I did discuss this with her. Patient was given Tylenol 975 mg orally discharged home. She was given printed and verbal instructions. Discharge Plan Discharge Clinical Impression: Chest pain Patient Disposition: Home, Self-Care Instructions: Chest Pain (ED) Additional Instructions: Your blood work was unremarkable. Your chest x-ray was normal. Your EKG was unremarkable. At this time I believe that your pain is caused by the muscles and joints of your chest. Take Tylenol (acetaminophen) 500 mg pills, 2 pills every 4 to 6 hours as needed for pain. Follow-up with your doctor in 2 days. Please return to the emergency department if your symptoms get worse or if you develop any symptoms that are concerning to you. Prescriptions: No Action Januvia 100 mg tablet 100 mg PO DAILY 30 Days Qty: 30 1RF imipramine HCl 25 mg tablet 50 mg PO BEDTIME Qty: 180 0RF oxcarbazepine 150 mg tablet 1 tab PO BID calcium carbonate-vitamin D3 600 mg(1,500mg) -400 unit tablet 1 tab PO BID atorvastatin 40 mg tablet 1 tab PO BEDTIME cetirizine 10 mg tablet 1 tab PO QAM furosemide 40 mg tablet 1.5 tab PO QAM aspirin 81 mg tablet,delayed release (DR/EC) 1 tab PO BEDTIME albuterol sulfate 90 mcg/actuation HFA aerosol inhaler 2 puff PO QID PRN (Reason: Wheezing) Flovent HFA 110 mcg/actuation HFA aerosol inhaler 2 puff inhalation BID insulin aspart U-100 [Novolog Flexpen U-100 Insulin] 100 unit/mL (3 mL) insulin pen 6 unit subcut TID Lantus Solostar U-100 Insulin 100 unit/mL (3 mL) insulin pen 16 unit subcut BEDTIME sertraline 50 mg tablet 50 mg PO DAILY topiramate 100 mg tablet 100 mg PO BID alcohol swabs [Alcohol Prep Pads] Pads, Medicated topical QID PRN ferrous sulfate [FeroSul] 325 mg (65 mg iron) tablet 325 mg PO DAILY amlodipine 2.5 mg tablet 2.5 mg PO QPM olmesartan 40 mg tablet 40 mg PO DAILY doxycycline hyclate 100 mg capsule 100 mg PO BID omeprazole 20 mg capsule,delayed release(DR/EC) 20 mg PO DAILY 90 Days Qty: 90 1RF
[2022-03-07 10:49] LABS: MANUAL DIFF FLAG NO
[2022-03-07 10:53] LABS: Hematocrit 31.2 % (37.0-47.0); Hemoglobin 10.1 g/dl (12.0-16.0); Imm Gran Abs Auto 0.01 X10*3/uL (0.00-0.03); Imm Gran Pct Auto 0.2 % (0.0-0.4); Lymphocytes Absolute Auto 1.1 X10*3/uL (1.2-4.9); Lymphocytes Percent Auto 22.6 % (20-40); Mean Corpuscular HGB Conc 32.4 g/dl (31.0-35.0); Mean Corpuscular Hemoglobin 27.8 pg (27.0-33.0); Mean Platelet Volume 9.8 fL (9.4-12.3); Monocytes Absolute Auto 0.4 X10*3/uL (0.1-1.2); Monocytes Percent Auto 7.6 % (2-11); Neutrophils Absolute Auto 3.5 x10*3/uL (2.0-8.3); Neutrophils Percent Auto 69.6 % (45-73); Platelet Count 141 X10*3/uL (160-400); Red Blood Count 3.63 X10*6/uL (4.20-5.50); Red Cell Distribution Width 15.5 % (11.0-16.0)
[2022-03-07 11:03] LABS: INTERNATIONAL NORM RATIO 0.9 (0.9-1.1); Prothrombin Time 10.8 SEC (10.0-13.1)
[2022-03-07 11:05] LABS: Partial Thromboplastin Time 29.6 SEC (26.0-36.4)
[2022-03-07 11:18] LABS: Alanine Aminotransferase 12 U/L (0-31); Albumin Level 3.3 g/dL (3.5-5.0); Alkaline Phosphatase 109 U/L (39-117); Anion Gap 10 (12-20); Aspartate Amino Transferase 11 U/L (5-31); Bilirubin Total 0.3 mg/dL (0.0-1.0); Blood Urea Nitrogen 17 mg/dL (9-16); COVID-19 Test Negative (Negative); Calcium 8.6 mg/dL (8.4-10.2); Carbon Dioxide 20 mmol/L (22-29); Chloride 111 mmol/L (96-108); Creatinine Clr Calc Pharmacy 45.4; Estimated Glomerular Filt Rate 50; Glucose Random 109 mg/dL (60-115); IDNOW Serial# 16C4AD1C; IDNOW Serial# BCCEAD1C; Influenza A Negative (Negative); Influenza B2 Negative (Negative); Lipase 55 U/L (8-78); Potassium 3.6 mmol/L (3.3-5.1); Sodium 137 mmol/L (135-145); Total Protein 5.8 g/dL (6.5-8.0)
[2022-03-07 11:22] LABS: Troponin-I High Sensitivity 4.7 ng/L (<3.5-17.0)
[2022-03-07] MEDS: Acetaminophen 325 MG TABLET 975 MG PO (13:17)
== END 2022-03-07 13:40 | disposition home or self-care (01) ==
PROVIDERS: Emergency Provider Emergency Medicine Emergency Medical Services; PCP Nurse Practitioner Primary Care
DX: R07.89 Other chest pain (principal); F17.210 Nicotine dependence, cigarettes, uncomplicated; Z20.822 Contact with and (suspected) exposure to COVID-19; Z71.6 Tobacco abuse counseling; Z79.899 Other long term (current) drug therapy
CPT/HCPCS: 71046; 80053; 83690; 84484; 85025; 85610; 85730; 87502; 87635; 93005; 99284

== ENCOUNTER 2022-06-20 18:04 | Emergency (ER) | payer OTHER, SELFPAY ==
--- NOTE | ~2022-06-20 | XR_ITS ---
EXAMINATION: XR SHOULDER, LEFT CLINICAL INFORMATION: Fall. COMPARISON: None available. TECHNIQUE: Four views of the left shoulder. FINDINGS: The bones and soft tissues are normal. No fracture. Glenohumeral and acromioclavicular alignment is anatomic with normal joint space. No abnormal soft tissue calcifications. XR/XR shoulder LT min 2V IMPRESSION: Normal left shoulder.
--- NOTE | ~2022-06-20 | XR_ITS ---
EXAMINATION: XR ELBOW, RIGHT CLINICAL INFORMATION: Fall COMPARISON: 12/28/2018 TECHNIQUE: AP, lateral, and oblique views of the right elbow. FINDINGS: No fracture or dislocation. Alignment is anatomic. Joint spaces are maintained. No elbow joint effusion. The soft tissues are unremarkable. XR/XR elbow RT min 3V IMPRESSION: No fracture or malalignment.
--- NOTE | ~2022-06-20 | XR_ITS ---
EXAMINATION: XR HIP, LEFT CLINICAL INFORMATION: Fall COMPARISON: None available. TECHNIQUE: Two views of the left hip. Frontal view of the pelvis. FINDINGS: No fracture or dislocation. The hips are well aligned. Mild joint space narrowing. The pelvic rim is intact. Mild degenerative change of the lower lumbar spine. Normal bowel gas pattern. XR/XR hip LT w PEL1V IMPRESSION: No fracture or malalignment. Mild degenerative changes of the hips.
[2022-06-20 19:54] VITALS: BP 111/90; PULSE 98; RESP 18; TEMP 36.6; O2SAT 100; BMI 32.3
--- NOTE | 2022-06-20 19:58 | ED_ITS ---
HPI - Fall General Chief Complaint: Extremity Injury, Upper <YUDITH Nunes - Last Filed: 06/20/22 20:02> Stated Complaint: fell down t-1, R shoulder pain, L hip <YUDITH Nunes - Last Filed: 06/20/22 20:02> Time Seen by Provider: 06/20/22 20:32 <YUDITH Nunes - Last Filed: 06/20/22 20:02> Source: patient <Jackelyn Soto MD - Last Filed: 06/20/22 22:02> Mode of arrival: ambulatory <Jackelyn Soto MD - Last Filed: 06/20/22 22:02> Limitations: no limitations <Jackelyn Soto MD - Last Filed: 06/20/22 22:02> History of Present Illness HPI Narrative: Patient comes to the emergency room complaining of contusions in the shoulder, elbow and hip. Patient states that she fell down at home, patient tripped over a toaster. Patient denies head injury, no loss of consciousness, no blood thinners. Patient complaining of left-sided shoulder and hip pain, and right-sided elbow pain <Jackelyn Soto MD - Last Filed: 06/20/22 22:02> Related Data Home Medications: Home Medications Medication Instructions Recorded Confirmed atorvastatin 40 mg tablet 1 tab PO BEDTIME 01/12/20 07/01/21 calcium carbonate 600 mg-vitamin 1 tab PO BID 01/12/20 07/01/21 D3 10 mcg (400 unit) tablet cetirizine 10 mg tablet 1 tab PO QAM 01/12/20 07/01/21 oxcarbazepine 150 mg tablet 1 tab PO BID 01/12/20 07/01/21 sertraline 50 mg tablet 50 mg PO DAILY 08/20/20 07/01/21 albuterol sulfate 90 mcg/actuation 2 puff PO QID PRN Wheezing 02/18/21 07/01/21 aerosol inhaler aspirin 81 mg tablet,delayed 1 tab PO BEDTIME 02/18/21 07/01/21 release fluticasone propionate 110 2 puff inhalation BID 02/18/21 07/01/21 mcg/actuation HFA aerosol inhaler (Flovent HFA) furosemide 40 mg tablet 1.5 tab PO QAM 02/18/21 07/01/21 insulin aspart U-100 100 unit/mL 6 unit subcut TID 02/18/21 07/01/21 (3 mL) subcutaneous pen (Novolog FlexPen U-100 Insulin aspart) insulin glargine 100 unit/mL (3 16 unit subcut BEDTIME 02/18/21 07/01/21 mL) subcutaneous pen (Lantus Solostar U-100 Insulin) alcohol swabs (Alcohol Prep Pads) pad topical QID PRN 09/19/21 amlodipine 2.5 mg tablet 2.5 mg PO QPM 09/19/21 doxycycline hyclate 100 mg capsule 100 mg PO BID 09/19/21 ferrous sulfate 325 mg (65 mg 325 mg PO DAILY 09/19/21 iron) tablet (FeroSul) olmesartan 40 mg tablet 40 mg PO DAILY 09/19/21 topiramate 100 mg tablet 100 mg PO BID 09/19/21 Previous Rx's Medication Instructions Recorded sitagliptin phosphate 100 mg 100 mg PO DAILY 30 days #30 tabs 08/15/21 tablet (Januvia) imipramine HCl 25 mg tablet 50 mg PO BEDTIME #60 tabs 06/09/22 omeprazole 20 mg capsule,delayed 20 mg PO DAILY 90 days #30 caps 06/09/22 release gabapentin 100 mg capsule 100 mg PO TID #20 caps 06/20/22 <YUDITH Nunes - Last Filed: 06/20/22 20:02> Allergies/Adverse Reactions: Allergies Allergy/AdvReac Type Severity Reaction Status Date / Time hydrocodone [From Vicodin] Allergy Mild ITCHING Verified 09/19/21 13:51 SHANAE Inhibitors Allergy Unknown UNKNOWN Verified 09/19/21 13:51 [SHANAE INHIBITORS] ENVIROMENTAL Allergy Mild HAYFEVER Uncoded 09/19/21 13:51 lysol wipes Allergy Mild Hives Uncoded 09/19/21 13:51 [place] Allergy Unknown NEPHROPATHY Uncoded 09/19/21 13:51 <YUDITH Nunes - Last Filed: 06/20/22 20:02> Review of Systems Review of Systems: Constitutional : No Weight loss, No Fever, No Chills, No Night Sweats, No Fatigue, No Malaise ENT/Mouth : No Hearing loss, No Ear Pain, No Nasal Congestion, No Sinus Pain, No Hoarseness, No sore throat, No Rhinorrhea, No Swallowing Difficulty Eyes: No Eye Pain, No Swelling, No Redness, No Foreign Body, No Discharge, No Vision Changes Cardiovascular : No Chest Pain, No SOB, No Dyspnea on Exertion, No Orthopnea, No Edema, No Palpitations Respiratory : No Cough, No Sputum, No Wheezing, No Smoke Exposure, No Dyspnea Gastrointestinal : No Nausea, No Vomiting, No Diarrhea, No Constipation, No abdominal Pain, No Hematochezia, No Melena Genitourinary : no irregular bleeding, No Dysuria, No Urinary Frequency, No Hematuria, No Urinary Incontinence, No Urgency, No Flank Pain, No Urinary Flow Changes, No Hesitancy Musculoskeletal : No joint pain, No Myalgias, No Joint Swelling, patient has normal range of motion in bilateral arms at the shoulders, elbows and wrists., patient is ambulatory, walking around in her room. Skin : No Skin Lesions, No rash Neuro : No Weakness, No Numbness, No Paresthesias, No Loss of Consciousness, No Dizziness, No Headache Psych : No Anxiety/Panic, No Depression, No SI/HI/AH/VH, No Social Issues, Heme/Lymph: No Bruising, No Bleeding,No Lymphadenopathy Endocrine : No Polyuria, No Polydipsia, No Temperature Intolerance <Jackelyn Soto MD - Last Filed: 06/20/22 22:02> [facility] Past Medical History Medical History: Medical History Acute epigastric pain Asthma BMI 40.0-44.9, adult CHF (congestive heart failure) Chronic kidney disease, stage 3 COPD (chronic obstructive pulmonary disease) Diabetes Essential hypertension Family history of GERD History of migraine Hyperlipidemia Hyperlipidemia LDL goal <70 Hypertension JANET (obstructive sleep apnea) Osteoarthritis Renal failure Restless leg syndrome Seizures TIA (transient ischemic attack) Type 2 diabetes mellitus with chronic kidney disease <YUDITH Nunes - Last Filed: 06/20/22 20:02> Surgical History: Surgical History H/O esophagogastroduodenoscopy History of appendectomy History of arthroscopy of knee History of carpal tunnel release History of cholecystectomy History of colonoscopy History of lumpectomy of right breast Hx of total knee arthroplasty <YUDITH Nunes - Last Filed: 06/20/22 20:02> Family History Family History: Family History Father Hx of gout Diabetes Mother Diabetes Daughter Pre-diabetes Brother Cancer <YUDITH Nunes - Last Filed: 06/20/22 20:02> Social History Social History: Social History Household Members: None Housing: Apartment Alcohol intake: never Patient Tobacco Use Status: Current everyday Tobacco user Tobacco use type: Cigarette Cigarette Packs Per Day: 1 Cigarettes Per Day: 20.0 Years Smoked: 45 Advance Directives: Yes Advance Directives on File: Yes Advance Directives Date on File: 02/18/21 service: No Current occupational status: disabled <YUDITH Nunes - Last Filed: 06/20/22 20:02> Physical Exam Vital Signs: Vital Signs: Last Vital Signs Temp 98.6 F 06/20/22 21:25 Pulse 91 06/20/22 21:25 Resp 18 06/20/22 21:25 BP 98/47 L 06/20/22 21:25 Pulse Ox 98 06/20/22 21:25 O2 Del Method Room Air 06/20/22 21:25 BMI result Body Mass Index 32.3 <YUDITH Nunes - Last Filed: 06/20/22 20:02> Vital Signs: Last Vital Signs Temp 98.6 F 06/20/22 21:25 Pulse 91 06/20/22 21:25 Resp 18 06/20/22 21:25 BP 98/47 L 06/20/22 21:25 Pulse Ox 98 06/20/22 21:25 O2 Del Method Room Air 06/20/22 21:25 BMI result Body Mass Index 32.3 <Jackelyn Soto MD - Last Filed: 06/20/22 22:02> Course Course Course Narrative: RME--62yo F w/PMHx asthma, CKD, COPD, diabetes, HTN, HLD, osteoarthritis, TIA, presented to ED complaining of left shoulder, left hip, and right elbow pain s/p mechanical trip and fall yesterday tripping over toaster oven. Denies symptoms prior to fall, denies head trauma or LOC. Right elbow with mild swelling and diffuse tenderness. Neurovascular intact distally. Left shoulder and hip diffusely tender. Patient ambulating with steady gait X-rays ordered <YUDITH Nunes - Last Filed: 06/20/22 20:02> Medical Decision Making Medical Decision Making MDM Narrative: -I discussed the x-rays with the patient, no acute fractures. Physical exam is reassuring, no fracture suspected. - <Jackelyn Soto MD - Last Filed: 06/20/22 22:02> Differential Diagnosis Differential Diagnoses: The differential diagnosis associated with the presentation includes (Contusion, concussion, fracture, dislocation) <Jackelyn Soto MD - Last Filed: 06/20/22 22:02> Radiology Impression Discussion of test interpretation with radiology: I have reviewed the radiologist's reading. <Jackelyn Soto MD - Last Filed: 06/20/22 22:02> Radiologist Impression: The bones and soft tissues are normal. No fracture. Glenohumeral and acromioclavicular alignment is anatomic with normal joint space. No abnormal soft tissue calcifications.? No fracture or dislocation. The hips are well aligned. Mild joint space narrowing. The pelvic rim is intact. Mild degenerative change of the lower lumbar spine. Normal bowel gas pattern. XR/XR hip LT w PEL1V IMPRESSION: No fracture or malalignment. Mild degenerative changes of the hips. Elbow x-ray: No fracture or dislocation. Alignment is anatomic. Joint spaces are maintained. No elbow joint effusion. The soft tissues are unremarkable. ? XR/XR elbow RT min 3V IMPRESSION: No fracture or malalignment. <Jackelyn Soto MD - Last Filed: 06/20/22 22:02> Discharge Plan Discharge Clinical Impression: Multiple contusions <YUDITH Nunes - Last Filed: 06/20/22 20:02> Patient Disposition: Home, Self-Care <YUDITH Nunes - Last Filed: 06/20/22 20:02> Instructions: Contusion in Adults (ED) <YUDITH Nunes - Last Filed: 06/20/22 20:02> Additional Instructions: Please follow-up with your primary care physician tomorrow. If you have any worsening or new symptoms, please return to the emergency room or call 911 <YUDITH Nunes - Last Filed: 06/20/22 20:02> Prescriptions: New gabapentin 100 mg capsule 100 mg PO TID Qty: 20 0RF No Action Januvia 100 mg tablet 100 mg PO DAILY 30 Days Qty: 30 1RF imipramine HCl 25 mg tablet 50 mg PO BEDTIME Qty: 60 0RF omeprazole 20 mg capsule,delayed release(DR/EC) 20 mg PO DAILY 90 Days Qty: 30 1RF oxcarbazepine 150 mg tablet 1 tab PO BID calcium carbonate-vitamin D3 600 mg(1,500mg) -400 unit tablet 1 tab PO BID atorvastatin 40 mg tablet 1 tab PO BEDTIME cetirizine 10 mg tablet 1 tab PO QAM furosemide 40 mg tablet 1.5 tab PO QAM aspirin 81 mg tablet,delayed release (DR/EC) 1 tab PO BEDTIME albuterol sulfate 90 mcg/actuation HFA aerosol inhaler 2 puff PO QID PRN (Reason: Wheezing) Flovent HFA 110 mcg/actuation HFA aerosol inhaler 2 puff inhalation BID insulin aspart U-100 [Novolog FlexPen U-100 Insulin] 100 unit/mL (3 mL) insulin pen 6 unit subcut TID Lantus Solostar U-100 Insulin 100 unit/mL (3 mL) insulin pen 16 unit subcut BEDTIME sertraline 50 mg tablet 50 mg PO DAILY topiramate 100 mg tablet 100 mg PO BID alcohol swabs [Alcohol Prep Pads] Pads, Medicated topical QID PRN ferrous sulfate [FeroSul] 325 mg (65 mg iron) tablet 325 mg PO DAILY amlodipine 2.5 mg tablet 2.5 mg PO QPM olmesartan 40 mg tablet 40 mg PO DAILY doxycycline hyclate 100 mg capsule 100 mg PO BID <YUDITH Nunes - Last Filed: 06/20/22 20:02>
[2022-06-20 21:25] VITALS: BP 98/47; PULSE 91; RESP 18; TEMP 37; O2SAT 98
--- NOTE | 2022-06-20 22:28 | PC.NURSE ---
Discharge instructions reviewed with pt. Pt verbalizes understanding.
== END 2022-06-20 22:29 | disposition home or self-care (01) ==
PROVIDERS: Emergency Provider Emergency Medicine; PCP Nurse Practitioner Primary Care
DX: S40.012A Contusion of left shoulder, initial encounter (principal); S40.011A Contusion of right shoulder, initial encounter; W01.0XXA Fall on same level from slipping, tripping and stumbling without subsequent striking against object, initial encounter; M79.602 Pain in left arm; M25.552 Pain in left hip; M25.521 Pain in right elbow; F17.210 Nicotine dependence, cigarettes, uncomplicated; Y93.9 Activity, unspecified; Y92.9 Unspecified place or not applicable; Y99.9 Unspecified external cause status; Z79.899 Other long term (current) drug therapy; Z71.6 Tobacco abuse counseling
CPT/HCPCS: 73030; 73080; 73502; 99283

== ENCOUNTER → 2022-08-12 10:41 | Outpatient (BNVA) | payer OTHER, SELFPAY | PROVIDERS: PCP Nurse Practitioner Primary Care; Visit Provider Nurse Practitioner | DX: K21.9 Gastro-esophageal reflux disease without esophagitis (principal); K59.00 Constipation, unspecified; K58.9 Irritable bowel syndrome, unspecified; D12.6 Benign neoplasm of colon, unspecified | CPT/HCPCS: 99212 ==

== ENCOUNTER 2022-09-25 17:18 | Outpatient (REF) | payer OTHER, SELFPAY ==
[2022-09-25 18:00] LABS: Anion Gap 12 (12-20); Blood Urea Nitrogen 29 mg/dL (9-16); Calcium 9.5 mg/dL (8.4-10.2); Carbon Dioxide 22 mmol/L (22-29); Chloride 105 mmol/L (96-108); Estimated Glomerular Filt Rate 37; Potassium 4.4 mmol/L (3.3-5.1); Sodium 135 mmol/L (135-145)
== END 2022-09-25 17:19 | disposition home or self-care (01) ==
LOC: HO.LAB 17:18
PROVIDERS: PCP Nurse Practitioner Primary Care; Visit Provider Internal Medicine Nephrology
DX: N18.31 Chronic kidney disease, stage 3a (principal); N25.0 Renal osteodystrophy; E11.21 Type 2 diabetes mellitus with diabetic nephropathy
CPT/HCPCS: 36415; 80051; 82310; 82565; 84520

== ENCOUNTER 2022-12-18 11:37 | Outpatient (REF) | payer OTHER, SELFPAY | END 2022-12-18 11:38 | disposition home or self-care (01) | LOC: HO.HOSX 11:37 | PROVIDERS: Visit Provider Orthopaedic Surgery | DX: Z13.89 Encounter for screening for other disorder (principal) ==

== ENCOUNTER 2023-01-06 08:34 | Outpatient (REF) | payer OTHER, SELFPAY ==
--- NOTE | ~2023-01-06 | XR_ITS ---
EXAMINATION: XR KNEE, RIGHT CLINICAL INFORMATION: Right knee pain. COMPARISON: February 15, 2020. TECHNIQUE: Three views of the right knee. FINDINGS: Examination demonstrates moderate tricompartmental osteoarthritis, with joint space narrowing, sclerosis, and osteophyte formation. No significant suprapatellar effusion is seen. No fracture is identified. No significant abnormal soft tissue calcification is seen. XR/XR knee RT 3V IMPRESSION: Moderate osteoarthritis.
== END 2023-01-06 08:35 | disposition home or self-care (01) ==
LOC: HO.HOSX 08:34
PROVIDERS: Visit Provider Orthopaedic Surgery
DX: M17.11 Unilateral primary osteoarthritis, right knee (principal)
CPT/HCPCS: 20610; 73562; 99212; J3301

== ENCOUNTER 2023-01-06 09:52 | Outpatient (AMB) | payer OTHER, SELFPAY ==
[2023-01-06 09:55] VITALS: BMI 32.8
--- NOTE | 2023-01-06 09:55 | MHC.OFFVIS ---
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 Lua. Patient reports last injection on provided her good relief until recently. Her pain has been getting progressively worse causing severe pain and feeling like her knee will give out. She is requesting to repeat injection. She normally gets around in a wheelchair except for some short walks because of chronic knee pain and low back. She takes Tylenol which gives her mild relief. Allergies hydrocodone [From Vicodin] Allergy (Mild, Verified 01/06/23 10:15) ITCHING SHANAE Inhibitors [SHANAE INHIBITORS] Allergy (Unknown, Verified 01/06/23 10:15) UNKNOWN ENVIROMENTAL Allergy (Mild, Uncoded 01/06/23 10:15) HAYFEVER lysol wipes Allergy (Mild, Uncoded 01/06/23 10:15) Hives [place]ac[place] Allergy (Unknown, Uncoded 01/06/23 10:15) NEPHROPATHY Medication List - Last Reconciled 01/06/23 by Marcel Paiz MD albuterol sulfate 90 mcg/actuation 2 puffs PO QID PRN alcohol swabs (Alcohol Prep Pads) pad topical QID PRN amlodipine 2.5 mg PO QPM aspirin 1 tab PO BEDTIME atorvastatin 1 tab PO BEDTIME calcium carbonate-vitamin D3 600 mg-10 mcg (400 unit) 1 tab PO BID cetirizine 1 tab PO QAM doxycycline hyclate 100 mg PO BID ferrous sulfate (FeroSul) 325 mg PO DAILY fluticasone propionate 110 mcg/actuation (Flovent HFA) 2 puffs inhalation BID furosemide 1.5 tabs PO QAM gabapentin 100 mg PO TID hydrocortisone 2.5% (Proctosol HC) 1 appl [place] BID imipramine HCl 50 mg (2 x 25 mg) PO BEDTIME insulin glargine (Lantus Solostar U-100 Insulin) 16 units subcut BEDTIME olmesartan 40 mg PO DAILY omeprazole 20 mg PO QAM oxcarbazepine 1 tab PO BID sertraline 50 mg PO DAILY sitagliptin phosphate (Januvia) 100 mg PO DAILY 30 days topiramate 100 mg PO BID wheat dextrin (Benefiber Sugar Free (dextrin)) 1.5 grams PO BID PFSH Medical History (Updated 01/06/23 @ 10:22 by Marcel Paiz MD) CHF (congestive heart failure) JANET (obstructive sleep apnea) Type 2 diabetes mellitus with chronic kidney disease Chronic kidney disease, stage 3 Essential hypertension Hyperlipidemia LDL goal <70 BMI 40.0-44.9, adult Family history of GERD History of migraine Hyperlipidemia Hypertension Osteoarthritis Restless leg syndrome TIA (transient ischemic attack) Acute epigastric pain Seizures Renal failure Asthma COPD (chronic obstructive pulmonary disease) Diabetes Surgical History (Updated 01/06/23 @ 10:08 by Fatimah Martines Shyann) History of arthroscopy of knee History of lumpectomy of right breast H/O esophagogastroduodenoscopy History of colonoscopy History of carpal tunnel release Hx of total knee arthroplasty History of appendectomy History of cholecystectomy Family History Father Hx of gout Diabetes Mother Diabetes Daughter Pre-diabetes Brother Cancer Social History Household Members: None Housing: Apartment Alcohol intake: never Patient Tobacco Use Status: Current everyday Tobacco user Tobacco use type: Cigarette Cigarette Packs Per Day: 1 Cigarettes Per Day: 20.0 Years Smoked: 45 Advance Directives Date on File: 02/18/21 service: No Current occupational status: disabled Physical Exam Vital Signs: BMI result Body Mass Index 32.8 Const Other: Well-nourished well-developed very friendly female awake alert and oriented x3 in no acute distress Extrem Other: Bilateral lower extremity examination shows good capillary refill, no skin lesions noted, normal sensation light touch Right knee examination shows a minimal effusion, mild crepitus with range of motion pain with range of motion, range of motion from -3 degrees to 115 degrees, no instability Office Procedures Joint Injection/Drain Joint Injection/Drain Primary Site: right knee Prep: site was prepped using aseptic technique Injected: 40 mg of, Kenalog and 1% plain lidocaine Procedure: The patient tolerated the procedure well Coding 10141 - Large joint Procedure code (CPT) selection complete Results Reviewed Results Reviewed: 01/06/23 10:05 Lidocaine HCl 2 % MPF [Xylocaine 2 % MPF] 5 ml .ROUTE .STK-MED ONE Triamcinolone Acetonide [Kenalog-40] 40 mg .ROUTE .STK-MED ONE X-rays of the patient's right knee show moderate diffuse joint space narrowing, subchondral sclerosis, no acute bony abnormalities Assessment & Plan Assessment & Plan (1) Arthritis of right knee: Code(s): M17.11 - Unilateral primary osteoarthritis, right knee Plan Ms. Willis presents with right knee pain due to degenerative joint disease. I had a lengthy discussion with the patient regarding the treatment options. She wishes to hold off on surgery for as long as possible. I agree with this plan. The risks and benefits of a cortisone injection were discussed at length with the patient. The patient wished to proceed. She tolerated the injection well. She will continue with her activity modifications. She will follow up with me on an as-needed basis should her symptoms not plateau at an unacceptable level over the next few months. Feel free to call me at any time should questions regarding her orthopedic management arise. Thank you very much for asking me to see this very friendly patient. I spent 22 minutes in reviewing the patient's records and imaging studies, seeing the patient and documenting in the medical record. Orders: Orders XR knee RT 3V Today M25.561 - Pain in right knee AMB Joint Injection/Aspiration Today M17.11 - Unilateral primary osteoarthritis, right knee Coding Level of Care Code Est Pt Level 2 (25009) Diagnoses Arthritis of right knee M17.11 CPT Codes Coding - Large joint: 54766 - Large joint ([id number])
== END 2023-01-06 10:23 | disposition home or self-care (01) ==
PROVIDERS: PCP Nurse Practitioner Primary Care; Visit Provider Orthopaedic Surgery
DX: M17.11 Unilateral primary osteoarthritis, right knee (principal)
CPT/HCPCS: 20610; 99212

== ENCOUNTER 2023-02-02 15:26 | Outpatient (REF) | payer OTHER, SELFPAY ==
[2023-02-02 15:50] LABS: MANUAL DIFF FLAG NO
[2023-02-02 16:05] LABS: Basophils Percent Auto 0.2 % (0-2); Hematocrit 26.5 % (37.0-47.0); Hemoglobin 8.7 g/dl (12.0-16.0); Imm Gran Abs Auto 0.03 X10*3/uL (0.00-0.03); Imm Gran Pct Auto 0.6 % (0.0-0.4); Lymphocytes Absolute Auto 0.5 X10*3/uL (1.2-4.9); Lymphocytes Percent Auto 11.1 % (20-40); Mean Corpuscular HGB Conc 32.8 g/dl (31.0-35.0); Mean Corpuscular Hemoglobin 28.2 pg (27.0-33.0); Mean Platelet Volume 9.1 fL (9.4-12.3); Monocytes Absolute Auto 0.1 X10*3/uL (0.1-1.2); Monocytes Percent Auto 2.6 % (2-11); Neutrophils Percent Auto 85.5 % (45-73); Platelet Count 194 X10*3/uL (160-400); Red Blood Count 3.08 X10*6/uL (4.20-5.50); Red Cell Distribution Width 14.7 % (11.0-16.0); White Blood Count 4.7 X10*3/uL (4.8-10.8)
[2023-02-02 17:21] LABS: Alanine Aminotransferase 9 U/L (0-31); Albumin Level 3.6 g/dL (3.5-5.0); Alkaline Phosphatase 117 U/L (39-117); Anion Gap 14 (12-20); Aspartate Amino Transferase 12 U/L (5-31); Bilirubin Total 0.2 mg/dL (0.0-1.0); Blood Urea Nitrogen 27 mg/dL (9-16); Calcium 9.1 mg/dL (8.4-10.2); Carbon Dioxide 22 mmol/L (22-29); Chloride 90 mmol/L (96-108); Estimated Glomerular Filt Rate 35; Glucose Random 184 mg/dL (60-115); Potassium 4.8 mmol/L (3.3-5.1); Sodium 121 mmol/L (135-145); Total Protein 7.3 g/dL (6.5-8.0)
[2023-02-02 17:46] LABS: TSH reflex Free T4 < 0.01 uIU/mL (0.32-4.0)
[2023-02-02 18:46] LABS: Free T4 (Free Thyroxine) 1.05 ng/dL (0.71-1.85)
== END 2023-02-02 15:27 | disposition home or self-care (01) ==
LOC: HO.HHCL 15:26
PROVIDERS: Visit Provider Nurse Practitioner Family
DX: R25.1 Tremor, unspecified (principal)
CPT/HCPCS: 36415; 80053; 84439; 84443; 85025

== ENCOUNTER 2023-02-03 15:18 | Emergency (ER) | payer OTHER, SELFPAY ==
[2023-02-03] VITALS (7 sets, daily range): BP systolic 86–111; BP diastolic 38–59; PULSE 94–101; RESP 14–18; TEMP 36.3–36.8; O2SAT 93–98; BMI 33.4
--- NOTE | 2023-02-03 15:21 | ED_ITS ---
HPI - General Adult General Chief complaint: General Medical Stated complaint: Low blood sugar Time Seen by Provider: 02/03/23 20:53 Source: patient Mode of arrival: ambulatory Limitations: no limitations History of Present Illness HPI narrative: 62 yo female with PMH of GERD, CHF, chronic low Na, anemia, seizures, IBS, COPD, type 2DM, HLD, HTN, CKD notes she feels much better but she was shaky and feeling weak while on prednisone for a URI - she just stopped it yesterday. She notes she is also on antiobiotic. She states she is eating an drinking well. She denies CP she denies GIB symptoms she states she feels fine now and does not get dizzy when she stands. labs yesterday showed JENNIFER and Na of 121 improved today MD complaint: shaky with tremors. Onset (ago): day(s) (2) Location: left, right and upper extremity Radiation: non-radiation Severity: mild Relieving factors: none Exacerbating factors: medication Associated symptoms: weakness Treatments prior to arrival: none Related Data Home Medications Medication Instructions Recorded Confirmed atorvastatin 40 mg tablet 1 tab PO BEDTIME 01/12/20 01/06/23 calcium carbonate 600 mg-vitamin 1 tab PO BID 01/12/20 01/06/23 D3 10 mcg (400 unit) tablet cetirizine 10 mg tablet 1 tab PO QAM 01/12/20 01/06/23 oxcarbazepine 150 mg tablet 1 tab PO BID 01/12/20 01/06/23 sertraline 50 mg tablet 50 mg PO DAILY 08/20/20 01/06/23 albuterol sulfate 90 mcg/actuation 2 puff PO QID PRN Wheezing 02/18/21 01/06/23 aerosol inhaler aspirin 81 mg tablet,delayed 1 tab PO BEDTIME 02/18/21 01/06/23 release fluticasone propionate 110 2 puff inhalation BID 02/18/21 01/06/23 mcg/actuation HFA aerosol inhaler (Flovent HFA) furosemide 40 mg tablet 1.5 tab PO QAM 02/18/21 01/06/23 insulin glargine 100 unit/mL (3 16 unit subcut BEDTIME 02/18/21 01/06/23 mL) subcutaneous pen (Lantus Solostar U-100 Insulin) alcohol swabs (Alcohol Prep Pads) pad topical QID PRN 09/19/21 amlodipine 2.5 mg tablet 2.5 mg PO QPM 09/19/21 01/06/23 doxycycline hyclate 100 mg capsule 100 mg PO BID 09/19/21 01/06/23 ferrous sulfate 325 mg (65 mg 325 mg PO DAILY 09/19/21 01/06/23 iron) tablet (FeroSul) olmesartan 40 mg tablet 40 mg PO DAILY 09/19/21 01/06/23 topiramate 100 mg tablet 100 mg PO BID 09/19/21 01/06/23 Previous Rx's Medication Instructions Recorded sitagliptin phosphate 100 mg 100 mg PO DAILY 30 days #30 tabs 08/15/21 tablet (Januvia) gabapentin 100 mg capsule 100 mg PO TID #20 caps 06/20/22 hydrocortisone 2.5 % topical cream 1 appl [place] BID hemorrhoids #30 grams 08/12/22 with perineal applicator (Proctosol HC) imipramine HCl 25 mg tablet 50 mg (2 x 25 mg) PO BEDTIME #60 08/12/22 tabs wheat dextrin 3 gram/3.8 gram oral 1.5 g PO BID #236 grams 08/12/22 powder (Benefiber Sugar Free (dextrin)) omeprazole 20 mg capsule,delayed 20 mg PO QAM #30 caps 12/02/22 release Allergies Allergy/AdvReac Type Severity Reaction Status Date / Time hydrocodone [From Vicodin] Allergy Mild ITCHING Verified 01/06/23 10:15 SHANAE Inhibitors Allergy Unknown UNKNOWN Verified 01/06/23 10:15 [SHANAE INHIBITORS] ENVIROMENTAL Allergy Mild HAYFEVER Uncoded 01/06/23 10:15 lysol wipes Allergy Mild Hives Uncoded 01/06/23 10:15 [place]acado Allergy Unknown NEPHROPATHY Uncoded 01/06/23 10:15 Review of Systems 2 Review of Systems: Constitutional : No Fever, No Chills, No Fatigue ENT/Mouth : No sore throat, No Rhinorrhea Eyes: No Eye Pain, No Swelling, No Redness Cardiovascular : No Chest Pain, No SOB, No Dyspnea on Exertion Respiratory : No Cough, No Sputum Gastrointestinal : No Nausea, No Vomiting, No Diarrhea, No abdominal Pain Genitourinary : No Dysuria, No Urinary Frequency, No Hematuria, Musculoskeletal : No joint pain, No Myalgias, No Joint Swelling Skin : No Skin Lesions, No rash Neuro : pos Weakness, No Numbness, No Dizziness, no Headache Psych : No Anxiety/Panic, No Depression Heme/Lymph: No Bruising, No Bleeding,No Lymphadenopathy Endocrine : No Polyuria, No Polydipsia All other systems reviewed and are negative [facility] Past Medical History Attestation statement: The following information was validated with the patient. Source: old records reviewed Medical History Right knee pain Hyponatremia Obesity Syncope Fall Colon cancer screening Primary osteoarthritis of right knee Abdominal cramping Morbid obesity Constipation Acute respiratory failure with hypoxia Hypoxia CHF (congestive heart failure) JANET (obstructive sleep apnea) Type 2 diabetes mellitus with chronic kidney disease Chronic kidney disease, stage 3 Essential hypertension Hyperlipidemia LDL goal <70 BMI 40.0-44.9, adult Family history of GERD History of migraine Hyperlipidemia Hypertension Osteoarthritis Restless leg syndrome TIA (transient ischemic attack) Acute epigastric pain Seizures Renal failure Asthma COPD (chronic obstructive pulmonary disease) Diabetes Surgical History History of arthroscopy of knee History of lumpectomy of right breast H/O esophagogastroduodenoscopy History of colonoscopy History of carpal tunnel release Hx of total knee arthroplasty History of appendectomy History of cholecystectomy Family History Family History Father Hx of gout Diabetes Mother Diabetes Daughter Pre-diabetes Brother Cancer Social History Social History Household Members: None Housing: Apartment Alcohol intake: never Patient Tobacco Use Status: Current everyday Tobacco user Tobacco use type: Cigarette Cigarette Packs Per Day: 1 Cigarettes Per Day: 20.0 Years Smoked: 45 Smoked in Last 30 Days: Yes Use of substances other than those prescribed or required for medical reasons: No Advance Directives: No Advance Directives Information Provided: Yes Advance Directives Date on File: 02/18/21 Patient : No service: No Current occupational status: disabled Physical Exam ED Vital Signs: Vital Signs - 24 hr 02/03/23 15:22 02/03/23 19:04 02/03/23 20:57 Temperature 98.3 F 98.2 F 97.3 F Pulse Rate 101 H 99 94 Respiratory Rate 16 18 18 Blood Pressure 86/48 L 106/38 L 109/50 L Pulse Oximetry 98 94 98 Oxygen Delivery Method Room Air Room Air Room Air 02/03/23 21:23 02/03/23 21:24 02/03/23 21:26 Temperature Pulse Rate 95 98 101 H Respiratory Rate Blood Pressure 107/52 L 111/59 L 110/53 L Pulse Oximetry Oxygen Delivery Method 02/03/23 23:56 Temperature Pulse Rate 98 Respiratory Rate 14 Blood Pressure 102/42 L Pulse Oximetry 93 Oxygen Delivery Method Room Air BMI result Body Mass Index 33.4 Appearance: Alert. Oriented X3. No acute distress. Eyes: Pupils equal, round and reactive to light. ENT: Pharynx normal. Neck: Normal inspection. Neck supple. CVS: Normal heart rate and rhythm. Pulses normal. Respiratory: No respiratory distress. Breath sounds normal. Abdomen: Soft and nontender. Skin: Skin warm and dry. Normal skin color. Normal skin turgor. Extremities: No lower extremity edema. No calf ttp Neuro: Oriented X 3. No motor deficit. No sensory deficit. Course Course Course Narrative: RME performed by Brooklynn Mariano PA-C. Patient is a 62 year old assigned female at presenting to the emergency department with tremors. Labs ordered. Patient placed back in the waiting room pending room availability and results. Reevaluation(s) Reevaluation #1: negative ortho VS will give some fluids and likely DC home after repeat BMP Reevaluation #2: Na 131 symptom free - gentle fluids done at this time states she feels fine and wants to go home ortho VS negative Medications Administered Discontinued Medications Generic Name Dose Route Start Last Admin Trade Name Freq PRN Reason Stop Dose Admin Sodium Chloride 500 mls @ 500 mls/hr 02/03/23 21:30 02/03/23 22:03 Ns IV 02/03/23 22:29 500 mls/hr .Q1H INDU Administration Medical Decision Making Medical Decision Making MDM Narrative: 62 yo female with PMH of GERD, CHF, chronic low Na, anemia, seizures, IBS, COPD, type 2DM, HLD, HTN, CKD here with tremors and initially low BP that I suspect is due to dehydration and not infection or severe sepsis. She staets she feels fine now as she is sitting and eating and resting in bed with normal BPs and she stopped her prednisone yesterday. She has no CP/SOB, GIB symptoms, n/v/d or abdominal pain. I am going to obtain ortho VS and hydrate along with EKG. Differential Diagnosis Differential Diagnoses: The differential diagnosis associated with the presentation includes dehydration, low Na Admission/Observation Consideration of admission/observation: Escalation of care including admission/observation considered Lab Data MDM Lab Attestation statement: I reviewed the patient's lab results. 02/03/23 16:37 02/04/23 00:11 Labs: Lab Results 02/03/23 02/03/23 02/03/23 Range/Units 15:28 16:37 19:19 WBC 6.4 (4.8-10.8) X10*3/uL RBC 2.94 L (4.20-5.50) X10*6/uL Hgb 8.3 L (12.0-16.0) g/dl Hct 25.2 L (37.0-47.0) % MCV 85.7 (80.0-98.0) fL MCH 28.2 (27.0-33.0) pg MCHC 32.9 (31.0-35.0) g/dl RDW 14.8 (11.0-16.0) % Plt Count 170 (160-400) X10*3/uL MPV 8.9 L (9.4-12.3) fL Immature Gran % (Auto) 0.3 (0.0-0.4) % Neut % (Auto) 71.1 (45-73) % Lymph % (Auto) 20.8 (20-40) % [place] % (Auto) 7.5 (2-11) % Eos % (Auto) 0.0 (0-4) % Baso % (Auto) 0.3 (0-2) % Lymph # (Auto) 1.3 (1.2-4.9) X10*3/uL [place] # (Auto) 0.5 (0.1-1.2) X10*3/uL Eos # (Auto) 0.0 (0.0-0.4) X10*3/uL Baso # (Auto) 0.0 (0.0-0.2) X10*3/uL Abs Immat Gran (auto) 0.02 (0.00-0.03) X10*3/uL Absolute Neuts (auto) 4.5 (2.0-8.3) x10*3/uL Absolute Nucleated RBC 0.000 (0.0-0.012) X10*3/uL Nucleated RBC % (auto) 0.0 (0.0-0.2) /100WBC Sodium 127 L (135-145) mmol/L Potassium 4.4 (3.3-5.1) mmol/L Chloride 94 L (96-108) mmol/L Carbon Dioxide 26 (22-29) mmol/L Anion Gap 11 L (12-20) BUN 27 H (9-16) mg/dL Creatinine 1.20 (0.5-1.4) mg/dL Estim Creat Clear Calc 41.1 Estimated GFR 46 POC Glucose 107 (60-115) mg/dL Random Glucose 96 (60-115) mg/dL Calcium 9.2 (8.4-10.2) mg/dL Magnesium 1.9 (1.6-2.6) mg/dL Total Bilirubin 0.3 (0.0-1.0) mg/dL AST 9 (5-31) U/L ALT 7 (0-31) U/L Alkaline Phosphatase 103 (39-117) U/L Total Protein 6.6 (6.5-8.0) g/dL Albumin 3.3 L (3.5-5.0) g/dL Urine Color Yellow Urine Appearance Clear Urine pH 5.5 (5.0-9.0) Ur Specific [place] <= 1.005 (1.005-1.025) Urine Protein Negative (Neg-Trace) mg/dL Urine Glucose (UA) Negative (Negative) mg/dL Urine Ketones Negative (Negative) mg/dL Urine Blood Negative (Negative) Urine Nitrite Negative (Negative) Ur Leukocyte Esterase Negative (Negative) Urine Osmolality 178 L (373-1093) mosm/kg Ur Random Sodium 35.0 mmol/L 02/03/23 02/04/23 Range/Units 20:50 00:11 WBC (4.8-10.8) X10*3/uL RBC (4.20-5.50) X10*6/uL Hgb (12.0-16.0) g/dl Hct (37.0-47.0) % MCV (80.0-98.0) fL MCH (27.0-33.0) pg MCHC (31.0-35.0) g/dl RDW (11.0-16.0) % Plt Count (160-400) X10*3/uL MPV (9.4-12.3) fL Immature Gran % (Auto) (0.0-0.4) % Neut % (Auto) (45-73) % Lymph % (Auto) (20-40) % [place] % (Auto) (2-11) % Eos % (Auto) (0-4) % Baso % (Auto) (0-2) % Lymph # (Auto) (1.2-4.9) X10*3/uL [place] # (Auto) (0.1-1.2) X10*3/uL Eos # (Auto) (0.0-0.4) X10*3/uL Baso # (Auto) (0.0-0.2) X10*3/uL Abs Immat Gran (auto) (0.00-0.03) X10*3/uL Absolute Neuts (auto) (2.0-8.3) x10*3/uL Absolute Nucleated RBC (0.0-0.012) X10*3/uL Nucleated RBC % (auto) (0.0-0.2) /100WBC Sodium 131 L (135-145) mmol/L Potassium (3.3-5.1) mmol/L Chloride (96-108) mmol/L Carbon Dioxide (22-29) mmol/L Anion Gap (12-20) BUN (9-16) mg/dL Creatinine (0.5-1.4) mg/dL Estim Creat Clear Calc Estimated GFR POC Glucose 76 (60-115) mg/dL Random Glucose (60-115) mg/dL Calcium (8.4-10.2) mg/dL Magnesium (1.6-2.6) mg/dL Total Bilirubin (0.0-1.0) mg/dL AST (5-31) U/L ALT (0-31) U/L Alkaline Phosphatase (39-117) U/L Total Protein (6.5-8.0) g/dL Albumin (3.5-5.0) g/dL Urine Color Urine Appearance Urine pH (5.0-9.0) Ur Specific [place] (1.005-1.025) Urine Protein (Neg-Trace) mg/dL Urine Glucose (UA) (Negative) mg/dL Urine Ketones (Negative) mg/dL Urine Blood (Negative) Urine Nitrite (Negative) Ur Leukocyte Esterase (Negative) Urine Osmolality (373-1093) mosm/kg Ur Random Sodium mmol/L Independent Interpretation I performed an independent interpretation of an: EKG Interpretation: Rate: 94 Rhythm: NSR [place]: normal Normal P waves. Normal ZUHAIR. Normal QRS complex. ST T wave : normal qTC: normal prior studies: no acute ischemia The study has been interpreted contemporaneously by me. . External Record Review External record reviewed: Inpatient record Discharge Plan Discharge Clinical Impression: Acute hyponatremia Patient Disposition: Home, Self-Care Instructions: Hyponatremia (ED) Additional Instructions: continue your medications. return for worsening symptoms, pain, fevers, vomiting, dizziness. REPEAT SODIUM BLOOD TEST WITH YOUR DOCTOR IN 1 DAY. Prescriptions: No Action Januvia 100 mg tablet 100 mg PO DAILY 30 Days Qty: 30 1RF omeprazole 20 mg capsule,delayed release(DR/EC) 20 mg PO QAM Qty: 30 3RF oxcarbazepine 150 mg tablet 1 tab PO BID calcium carbonate-vitamin D3 600 mg(1,500mg) -400 unit tablet 1 tab PO BID atorvastatin 40 mg tablet 1 tab PO BEDTIME cetirizine 10 mg tablet 1 tab PO QAM furosemide 40 mg tablet 1.5 tab PO QAM aspirin 81 mg tablet,delayed release (DR/EC) 1 tab PO BEDTIME albuterol sulfate 90 mcg/actuation HFA aerosol inhaler 2 puff PO QID PRN (Reason: Wheezing) Flovent HFA 110 mcg/actuation HFA aerosol inhaler 2 puff inhalation BID Lantus Solostar U-100 Insulin 100 unit/mL (3 mL) insulin pen 16 unit subcut BEDTIME gabapentin 100 mg capsule 100 mg PO TID Qty: 20 0RF sertraline 50 mg tablet 50 mg PO DAILY topiramate 100 mg tablet 100 mg PO BID alcohol swabs [Alcohol Prep Pads] Pads, Medicated topical QID PRN ferrous sulfate [FeroSul] 325 mg (65 mg iron) tablet 325 mg PO DAILY amlodipine 2.5 mg tablet 2.5 mg PO QPM olmesartan 40 mg tablet 40 mg PO DAILY doxycycline hyclate 100 mg capsule 100 mg PO BID Benefiber Sugar Free (dextrin) 3 gram/3.8 gram powder 1.5 g PO BID Qty: 236 6RF Rx Instructions: mix into at least 4 oz water or juice before administering hydrocortisone [Proctosol HC] 2.5 % cream with perineal applicator 1 appl [place] BID Qty: 30 6RF Rx Instructions: BE SURE TO INCLUDE RECTAL APPICATOR!! imipramine HCl 25 mg tablet 50 mg PO BEDTIME Qty: 60 6RF
[2023-02-03 15:47] LABS: Glucose, Whole Blood 107 mg/dL (60-115)
[2023-02-03 16:43] LABS: MANUAL DIFF FLAG NO
[2023-02-03 16:48] LABS: Basophils Percent Auto 0.3 % (0-2); Hematocrit 25.2 % (37.0-47.0); Hemoglobin 8.3 g/dl (12.0-16.0); Imm Gran Abs Auto 0.02 X10*3/uL (0.00-0.03); Imm Gran Pct Auto 0.3 % (0.0-0.4); Lymphocytes Absolute Auto 1.3 X10*3/uL (1.2-4.9); Lymphocytes Percent Auto 20.8 % (20-40); Mean Corpuscular HGB Conc 32.9 g/dl (31.0-35.0); Mean Corpuscular Hemoglobin 28.2 pg (27.0-33.0); Mean Corpuscular Volume 85.7 fL (80.0-98.0); Mean Platelet Volume 8.9 fL (9.4-12.3); Monocytes Absolute Auto 0.5 X10*3/uL (0.1-1.2); Monocytes Percent Auto 7.5 % (2-11); Neutrophils Absolute Auto 4.5 x10*3/uL (2.0-8.3); Neutrophils Percent Auto 71.1 % (45-73); Platelet Count 170 X10*3/uL (160-400); Red Blood Count 2.94 X10*6/uL (4.20-5.50); Red Cell Distribution Width 14.8 % (11.0-16.0); White Blood Count 6.4 X10*3/uL (4.8-10.8)
[2023-02-03 17:00] LABS: Alanine Aminotransferase 7 U/L (0-31); Albumin Level 3.3 g/dL (3.5-5.0); Alkaline Phosphatase 103 U/L (39-117); Anion Gap 11 (12-20); Aspartate Amino Transferase 9 U/L (5-31); Bilirubin Total 0.3 mg/dL (0.0-1.0); Blood Urea Nitrogen 27 mg/dL (9-16); Calcium 9.2 mg/dL (8.4-10.2); Carbon Dioxide 26 mmol/L (22-29); Chloride 94 mmol/L (96-108); Creatinine Clr Calc Pharmacy 41.1; Estimated Glomerular Filt Rate 46; Glucose Random 96 mg/dL (60-115); Magnesium 1.9 mg/dL (1.6-2.6); Potassium 4.4 mmol/L (3.3-5.1); Sodium 127 mmol/L (135-145); Total Protein 6.6 g/dL (6.5-8.0)
[2023-02-03 19:34] LABS: Appearance Urine Clear; Color Urine Yellow; Glucose Urine UA Negative (Negative); Leukocyte Esterase Urine Negative (Negative); Nitrite Urine Negative (Negative); PH 5.5 (5.0-9.0); Specific Gravity - Urine <= 1.005 (1.005-1.025); Urine Blood Negative (Negative); Urine Ketones Negative (Negative); Urine Protein Negative (Neg-Trace)
[2023-02-03 19:45] LABS: Osmolality Urine 178 mosm/kg (373-1093)
[2023-02-03 20:53] LABS: Glucose, Whole Blood 76 mg/dL (60-115)
--- NOTE | 2023-02-03 21:24 | ECG_ITS ---
Test Reason : CHEST PAIN Blood Pressure : / mmHG Vent. Rate : 094 BPM Atrial Rate : 094 BPM P-R Int : 178 ms QRS Dur : 090 ms QT Int : 348 ms P-R-T Axes : 071 064 054 degrees QTc Int : 435 ms Normal sinus rhythm RSR' or QR pattern in V1 suggests right ventricular conduction delay Otherwise normal ECG When compared with ECG of 07-MAR-2022 09:06, Premature supraventricular complexes are no longer Present Referred By: Laisha Mejia Electronically Signed By:ELANA GOMEZ MD
[2023-02-03] MEDS: 0.9 % Sodium Chloride 500 ML IV (22:03)
[2023-02-04 00:26] LABS: Sodium 131 mmol/L (135-145)
== END 2023-02-04 01:10 | disposition home or self-care (01) ==
PROVIDERS: Nurse Practitioner Family; Physician Assistant Medical; Emergency Provider Emergency Medicine; PCP Nurse Practitioner Primary Care
DX: E87.1 Hypo-osmolality and hyponatremia (principal); R53.1 Weakness; E11.22 Type 2 diabetes mellitus with diabetic chronic kidney disease; I13.0 Hypertensive heart and chronic kidney disease with heart failure and stage 1 through stage 4 chronic kidney disease, or unspecified chronic kidney disease; N18.30 Chronic kidney disease, stage 3 unspecified; I50.9 Heart failure, unspecified; D64.9 Anemia, unspecified; E78.5 Hyperlipidemia, unspecified; J44.9 Chronic obstructive pulmonary disease, unspecified; F17.210 Nicotine dependence, cigarettes, uncomplicated; Z86.73 Personal history of transient ischemic attack (TIA), and cerebral infarction without residual deficits; Z79.82 Long term (current) use of aspirin; Z79.899 Other long term (current) drug therapy; Z79.4 Long term (current) use of insulin
CPT/HCPCS: 36415; 80053; 81003; 82947; 83735; 83935; 84295; 84300; 85025; 93005; 96360; 96361; 99285

== ENCOUNTER 2023-02-13 16:40 | Outpatient (REF) | payer OTHER, SELFPAY ==
[2023-02-13 17:41] LABS: Anion Gap 14 (12-20); Blood Urea Nitrogen 22 mg/dL (9-16); Calcium 9.1 mg/dL (8.4-10.2); Carbon Dioxide 23 mmol/L (22-29); Chloride 98 mmol/L (96-108); Estimated Glomerular Filt Rate 31; Glucose Random 100 mg/dL (60-115); Potassium 3.5 mmol/L (3.3-5.1); Sodium 131 mmol/L (135-145)
== END 2023-02-13 16:41 | disposition home or self-care (01) ==
LOC: HO.HHCL 16:40
PROVIDERS: Visit Provider Nurse Practitioner Primary Care
DX: E87.1 Hypo-osmolality and hyponatremia (principal)
CPT/HCPCS: 36415; 80048

== ENCOUNTER 2023-03-06 14:15 | Outpatient (REF) | payer OTHER, SELFPAY ==
--- NOTE | ~2023-03-06 | XR_ITS ---
EXAMINATION: XR CHEST CLINICAL INFORMATION: Cough x 1 month COMPARISON: Normal chest 03/07/2022. TECHNIQUE: 2 views of the chest were obtained. FINDINGS: The lungs are well-expanded and clear acute pneumonic process. There is blunting of left CP angle from pleural effusion/thickening. Heart size and great vessels are normal caliber. No gross bony abnormality seen. XR/XR chest 2V IMPRESSION: Blunting of left CP angle from pleural effusion/thickening. The lungs are clear.
== END 2023-03-06 14:16 | disposition home or self-care (01) ==
LOC: HO.HHCX 14:15
PROVIDERS: Visit Provider Family Medicine
DX: R05.2 Subacute cough (principal)
CPT/HCPCS: 71046

== ENCOUNTER 2023-04-09 12:49 | Outpatient (AMB) | payer OTHER, SELFPAY ==
--- NOTE | 2023-04-09 12:58 | MHC.OFFVIS ---
Intake Vital Signs 04/09/23 13:03 Height 4 ft 10 in Weight 154 lb BMI 32.2 Intake Visit Reasons: OV-pain in right knee injection? Intake Note: Vikki a 62 year old female who presents today for a follow up of right knee, last injection 01/06/2023. The patient states that she got temporary relief from the injection. She denies any fevers or chills. She continues with her home exercise program. She would like to hold off on surgery for as long as possible. Allergies hydrocodone [From Vicodin] Allergy (Mild, Verified 04/09/23 13:04) ITCHING SHANAE Inhibitors [SHANAE INHIBITORS] Allergy (Unknown, Verified 04/09/23 13:04) UNKNOWN ENVIROMENTAL Allergy (Mild, Uncoded 01/06/23 10:15) HAYFEVER lysol wipes Allergy (Mild, Uncoded 01/06/23 10:15) Hives avacado Allergy (Unknown, Uncoded 01/06/23 10:15) NEPHROPATHY Medication List - Last Reconciled 04/09/23 by Marcel Paiz MD albuterol sulfate 90 mcg/actuation 2 puffs PO QID PRN alcohol swabs (Alcohol Prep Pads) pad topical QID PRN amlodipine 2.5 mg PO QPM aspirin 1 tab PO BEDTIME atorvastatin 1 tab PO BEDTIME calcium carbonate-vitamin D3 600 mg-10 mcg (400 unit) 1 tab PO BID cetirizine 1 tab PO QAM doxycycline hyclate 100 mg PO BID ferrous sulfate (FeroSul) 325 mg PO DAILY fluticasone propionate 110 mcg/actuation (Flovent HFA) 2 puffs inhalation BID furosemide 1.5 tabs PO QAM gabapentin 100 mg PO TID hydrocortisone 2.5% (Proctosol HC) 1 appl [place] BID imipramine HCl 50 mg (2 x 25 mg) PO BEDTIME insulin glargine (Lantus Solostar U-100 Insulin) 16 units subcut BEDTIME olmesartan 40 mg PO DAILY omeprazole 20 mg PO QAM oxcarbazepine 1 tab PO BID sertraline 50 mg PO DAILY sitagliptin phosphate (Januvia) 100 mg PO DAILY 30 days topiramate 100 mg PO BID wheat dextrin (Benefiber Sugar Free (dextrin)) 1.5 grams PO BID [facility] Medical History Right knee pain Hyponatremia Obesity Syncope Fall Colon cancer screening Primary osteoarthritis of right knee Abdominal cramping Morbid obesity Constipation Acute respiratory failure with hypoxia Hypoxia CHF (congestive heart failure) JANET (obstructive sleep apnea) Type 2 diabetes mellitus with chronic kidney disease Chronic kidney disease, stage 3 Essential hypertension Hyperlipidemia LDL goal <70 BMI 40.0-44.9, adult Family history of GERD History of migraine Hyperlipidemia Hypertension Osteoarthritis Restless leg syndrome TIA (transient ischemic attack) Acute epigastric pain Seizures Renal failure Asthma COPD (chronic obstructive pulmonary disease) Diabetes Surgical History History of arthroscopy of knee History of lumpectomy of right breast H/O esophagogastroduodenoscopy History of colonoscopy History of carpal tunnel release Hx of total knee arthroplasty History of appendectomy History of cholecystectomy Family History Father Hx of gout Diabetes Mother Diabetes Daughter Pre-diabetes Brother Cancer Social History Household Members: None Housing: Apartment Alcohol intake: never Patient Tobacco Use Status: Current everyday Tobacco user Tobacco use type: Cigarette Cigarette Packs Per Day: 1 Cigarettes Per Day: 20.0 Years Smoked: 45 Advance Directives Date on File: 02/18/21 service: No Current occupational status: disabled Physical Exam Vital Signs: BMI result Body Mass Index 32.2 Const Other: Well-nourished well-developed very friendly female awake alert and oriented x3 in no acute distress Extrem Other: Bilateral lower extremity examination shows good capillary refill, no skin lesions noted, normal sensation light touch Right knee examination shows a minimal effusion, mild crepitus with range of motion, pain with range of motion, no instability Office Procedures Joint Injection/Drain Joint Injection/Drain Primary Site: right knee Prep: site was prepped using aseptic technique Injected: 40 mg of, DepoMedrol and 1% plain lidocaine Procedure: The patient tolerated the procedure well Coding 72379 - Large joint Procedure code (CPT) selection complete Results Reviewed Results Reviewed: X-rays of the patient's right knee show joint space narrowing, subchondral sclerosis, no acute bony abnormalities Assessment & Plan Assessment & Plan (1) Arthritis of right knee: Code(s): M17.11 - Unilateral primary osteoarthritis, right knee Plan Ms. Willis presents with right knee pain due to degenerative joint disease. I had a lengthy discussion patient regarding the treatment options. The risks and benefits of a right knee cortisone injection were discussed at length with the patient. The patient wished to proceed. She tolerated the injection well. She will continue with her home exercise program. She will follow up with me on an as-needed basis should her symptoms not plateau at an unacceptable level over the next few months. Feel free to call me at any time should questions regarding her orthopedic management arise. I spent 22 minutes in reviewing the patient's records and imaging studies, seeing the patient and documenting in the medical record. Orders: Orders AMB Joint Injection/Aspiration Today M17.11 - Unilateral primary osteoarthritis, right knee Coding Level of Care Code Est Pt Level 2 (72983) Diagnoses Arthritis of right knee M17.11 CPT Codes Coding - 40432 Large joint: 78885 - Large joint ([id number])
[2023-04-09 13:03] VITALS: BMI 32.2
== END 2023-04-09 13:27 | disposition home or self-care (01) ==
PROVIDERS: PCP Nurse Practitioner Primary Care; Visit Provider Orthopaedic Surgery
DX: M17.11 Unilateral primary osteoarthritis, right knee (principal)
CPT/HCPCS: 20610

== ENCOUNTER → 2023-04-09 12:49 | Outpatient (BNVA) | payer OTHER, SELFPAY | PROVIDERS: PCP Nurse Practitioner Primary Care; Visit Provider Orthopaedic Surgery | DX: M17.11 Unilateral primary osteoarthritis, right knee (principal) | CPT/HCPCS: 20610; J1020 ==

== ENCOUNTER 2023-06-10 14:59 | Outpatient (REF) | payer OTHER, SELFPAY ==
[2023-06-10 16:07] LABS: MANUAL DIFF FLAG NO
[2023-06-10 16:16] LABS: Hemoglobin 8.9 g/dl (12.0-16.0); Mean Corpuscular HGB Conc 31.8 g/dl (31.0-35.0); Mean Corpuscular Volume 88.1 fL (80.0-98.0); Red Blood Count 3.18 X10*6/uL (4.20-5.50); White Blood Count 4.8 X10*3/uL (4.8-10.8)
[2023-06-10 16:17] LABS: Basophils Percent Auto 0.2 % (0-2); Imm Gran Abs Auto 0.01 X10*3/uL (0.00-0.03); Imm Gran Pct Auto 0.2 % (0.0-0.4); Lymphocytes Absolute Auto 1.7 X10*3/uL (1.2-4.9); Lymphocytes Percent Auto 34.8 % (20-40); Mean Platelet Volume 9.6 fL (9.4-12.3); Monocytes Absolute Auto 0.3 X10*3/uL (0.1-1.2); Monocytes Percent Auto 6.7 % (2-11); Neutrophils Absolute Auto 2.8 x10*3/uL (2.0-8.3); Neutrophils Percent Auto 58.1 % (45-73); Platelet Count 177 X10*3/uL (160-400); Red Cell Distribution Width 13.9 % (11.0-16.0)
[2023-06-10 16:39] LABS: Iron 245 mcg/dL (30-160); Percent Iron Saturation 91 % (15-50); Total Iron Binding Capacity 270 mcg/dL (228-428); Unsaturated Iron Binding < 25 ug/dL
[2023-06-10 16:56] LABS: Ferritin 20 ng/mL (10-250)
[2023-06-10 17:02] LABS: Folate 2.3 ng/mL (> or = 4.0); Vitamin B12 382 pg/mL (200-900)
[2023-06-11 17:39] LABS: Transferrin 201 mg/dL (188-341)
== END 2023-06-10 15:00 | disposition home or self-care (01) ==
LOC: HO.HHCL 14:59
PROVIDERS: Visit Provider Nurse Practitioner Primary Care
DX: G25.81 Restless legs syndrome (principal); E87.1 Hypo-osmolality and hyponatremia; N18.30 Chronic kidney disease, stage 3 unspecified
CPT/HCPCS: 36415; 82607; 82728; 82746; 83540; 84466; 85025

== ENCOUNTER 2023-06-23 14:30 | Outpatient (REF) | payer OTHER, SELFPAY ==
--- NOTE | ~2023-06-23 | XR_ITS ---
Examination: Right wrist and right elbow. CLINICAL INDICATION: Fall one month ago. Now has persistent pain in right elbow. COMPARISON: Right elbow 06/20/2022 TECHNIQUE: Right elbow 4 views and right wrist 4 views. FINDINGS: RIGHT ELBOW The radioulnar and humeral alignment is normal. No bony erosive changes, loose bodies are fracture or dislocation. The joint space alignment is normal. Right wrist all 8 carpal bones are visualized and are normal XR/XR wrist RT min 3V IMPRESSION: Unremarkable right elbow exam. Unremarkable right wrist exam. Normal alignment. No visible acute fracture or dislocation seen.
--- NOTE | ~2023-06-23 | XR_ITS ---
Examination: Right wrist and right elbow. CLINICAL INDICATION: Fall one month ago. Now has persistent pain in right elbow. COMPARISON: Right elbow 06/20/2022 TECHNIQUE: Right elbow 4 views and right wrist 4 views. FINDINGS: RIGHT ELBOW The radioulnar and humeral alignment is normal. No bony erosive changes, loose bodies are fracture or dislocation. The joint space alignment is normal. Right wrist all 8 carpal bones are visualized and are normal XR/XR elbow RT min 3V IMPRESSION: Unremarkable right elbow exam. Unremarkable right wrist exam. Normal alignment. No visible acute fracture or dislocation seen.
== END 2023-06-23 14:31 | disposition home or self-care (01) ==
LOC: HO.HHCX 14:30
PROVIDERS: Visit Provider Emergency Medicine
DX: M25.531 Pain in right wrist (principal); M25.521 Pain in right elbow; W19.XXXA Unspecified fall, initial encounter; Y93.9 Activity, unspecified; Y92.9 Unspecified place or not applicable; Y99.9 Unspecified external cause status
CPT/HCPCS: 73080; 73110

== ENCOUNTER 2023-06-30 14:05 | Outpatient (AMB) | payer OTHER, SELFPAY ==
[2023-06-30 14:10] VITALS: BP 129/58; PULSE 92; BMI 34.5
--- NOTE | 2023-06-30 14:10 | MHC.OFFVIS ---
Intake Vital Signs 06/30/23 14:10 Height 4 ft 8 in Weight 153 lb 14.122 oz BMI 34.5 BP 129/58 L Blood Pressure Location Lt brachial Position Sitting Pulse 92 Intake Visit Reasons: Follow up Constipation Intake Note: Vikki returns to in office visit today in follow up of IBS. CC: Patient c/o really bad rectal pain when having a BM a week ago that lasted for x4 days, and also seeing a little bit of blood. [employer] Required: No Accompanied by: Self / Same As Patient Allergies hydrocodone [From Vicodin] Allergy (Mild, Verified 06/30/23 14:20) ITCHING SHANAE Inhibitors [SHANAE INHIBITORS] Allergy (Unknown, Verified 06/30/23 14:20) UNKNOWN ENVIROMENTAL Allergy (Mild, Uncoded 01/06/23 10:15) HAYFEVER lysol wipes Allergy (Mild, Uncoded 01/06/23 10:15) Hives avacado Allergy (Unknown, Uncoded 01/06/23 10:15) NEPHROPATHY HPI Follow up Constipation HPI Details Assessment & Plan (1) GERD (gastroesophageal reflux disease): ?Code(s): K21.9 - Gastro-esophageal reflux disease without esophagitis ?Plan: ?She has been having a lot of discomfort over the umbilicus after eating recently, about a week. She is struggling with moving her bowels, and having rectal pain and bleeding. Had done ok in the past with dulcolax, but had diarrhea on other agents like Amitiza. Recommend she start Benefiber bid, will also send proctosol cram. She continues on omeprazole and imipramine. ROV 6 weeks (2) Constipation: ?Comment: She developed fecal incontinence so we stopped her Amitiza ?Code(s): K59.00 - Constipation, unspecified (3) Tubular adenoma of colon: ?Comment: 2021=TA repeat 5 years ?Code(s): D12.6 - Benign neoplasm of colon, unspecified (4) IBS (irritable bowel syndrome): ?Code(s): K58.9 - Irritable bowel syndrome without diarrhea ? ? ? Medications: New wheat dextrin (Bharath efiber Sugar Free (dextrin)) ?? mix into at least 4 oz water or juice be fore administering 1.5 grams? PO BID 236 grams 6RF ? ? hydrocortisone 2.5 % (Proctosol HC) ? ? BE SURE TO INCLU DE RECTAL APPICATO R!! 1 appl? [place] BID 30 grams 6RF hemorrho ids K64.9 - Unspecifie d hemorrhoids ? Refilled omeprazole 20 mg? PO DAILY 90 days 30 caps 3RF E ? ? imipramine HCl 50 mg (2 x 25 mg) PO BEDTIME 60 tabs 6RF K59.00 - Constipat ion, unspecified ? TODAY'S VISIT Pt has been lost to follow up since 07/2022 despite requesting a 6 week follow up. She tells me that she has a new orange kitten! She says she is doing well overall. She continues on her omeprazole, imipramine, proctosol cream, and fiber. She still has some fecal incontinence, but overall this has improved. The stool are solid to looser. The fiber has likely helped. She had one episode of RB on the TT after strainging to move her bowels. None since. Proctosol. Her colonoscopy is UTD as it was last in 2021 and she is due for repeat in 2026. She continues to lose weight via intentional dieting, she is down 153 LBS. Her dtr a couple of years ago choking on a piece of meat. She has a granddaughter that she does not see. ROV 6 mos. PFS Medical History Nicotine dependence, cigarettes, uncomplicated Right knee pain Hyponatremia Obesity Syncope Fall Colon cancer screening Primary osteoarthritis of right knee Abdominal cramping Morbid obesity Constipation Acute respiratory failure with hypoxia Hypoxia CHF (congestive heart failure) JANET (obstructive sleep apnea) Type 2 diabetes mellitus with chronic kidney disease Chronic kidney disease, stage 3 Essential hypertension Hyperlipidemia LDL goal <70 BMI 40.0-44.9, adult Family history of GERD History of migraine Hyperlipidemia Hypertension Osteoarthritis Restless leg syndrome TIA (transient ischemic attack) Acute epigastric pain Seizures Renal failure Asthma COPD (chronic obstructive pulmonary disease) Diabetes Surgical History History of arthroscopy of knee History of lumpectomy of right breast H/O esophagogastroduodenoscopy History of colonoscopy History of carpal tunnel release Hx of total knee arthroplasty History of appendectomy History of cholecystectomy Family History Father Hx of gout Diabetes Mother Diabetes Daughter Pre-diabetes Brother Cancer Social History Household Members: None Housing: Apartment Alcohol intake: never Patient Tobacco Use Status: Current everyday Tobacco user Tobacco use type: Cigarette Cigarette Packs Per Day: 1 Cigarettes Per Day: 20.0 Years Smoked: 45 Advance Directives Date on File: 02/18/21 service: No Current occupational status: disabled Review of Systems Const Denies fatigue, Denies fever(s), Denies night sweats, Denies poor appetite and Reports weight loss ENT Reports Normal hearing present, Denies dental pain, Denies dysphagia, Denies hearing loss, Denies mouth pain, Denies odynophagia, Denies throat swelling, Denies tongue swelling and Reports other (Dentition adequate) Card Reports no additional complaints Resp Reports no additional complaints GI Details: Denies abdominal pain, Denies melena, Denies bloating, Reports hematochezia, Denies constipation, Reports GI cramping, Denies dysphagia, Denies excessive flatus, Denies early satiety, Reports heartburn, Denies diarrhea, Denies nausea, Denies odynophagia, Denies vomiting and Denies hematemesis Skin/Breast Denies pruritus, Denies lesions, Denies rash and Denies jaundice Neuro Reports Normal hearing present and Denies Abnormal speech present Endo Denies fatigue Aller/Immun Denies throat swelling and Denies tongue swelling Physical Exam Vital Signs: Last Vital Signs Pulse 92 06/30/23 14:10 BP 129/58 L 06/30/23 14:10 BMI result Body Mass Index 34.5 Const General: cooperative, no acute distress, well developed and well groomed Nutritional Appearance: well nourished and obese Orientation/consciousness: oriented to person, oriented to place and oriented to time Limitations: No language barrier HEENT Head: Yes normocephalic and Yes atraumatic Mouth: audible dysphonia Eyes General: appearance normal, both eyes and all related structures Pupils: Equal, round and reactive pupils present Neck Neck: Yes normal visual inspection and Yes no lymphadenopathy Thyroid: Thyroid normal Resp Effort & Inspection: normal respiratory effort and able to speak in complete sentences Auscultation: wheezes and diminished lung sounds Cardio Rate: regular rate Rhythm: regular rhythm Heart sounds: Normal, physiologic split S2 sound present Peripheral pulses: radial pulses present and posterior tibial pulses present GI Inspection: No distended, No Abdominal panniculus present and Yes obesity Palpation (GI): Soft to palpation, nontender, no guarding, not rigid and No hepatosplenomegaly present Percussion: Yes normal to percussion Auscultation: normal bowel sounds Rectal Exam - Female: deferred Skin General skin exam: no rashes or lesions noted, turgor normal, skin not dry, no jaundice, No spider nevi and no striae Rashes: no rashes Nails: normal Neuro General: oriented to person, oriented to place and oriented to time Cranial nerves: Yes Equal, round and reactive pupils present and Yes Normal hearing present Speech: No Abnormal speech present Extrem General: Yes normal to inspection, No clubbing, No cyanosis and No edema Psych Appearance: grossly normal and well kempt Mental Status: mental status grossly normal Speech and movement: Normal speech and movement present Affect: normal affect Attitude: cooperative Thought process: Normal thought process present and not confabulating Thought content: Normal thought content present Insight: Limited insight present (Psych) Judgement: Limited judgement present (Psych) Assessment & Plan Assessment & Plan (1) GERD (gastroesophageal reflux disease): Code(s): K21.9 - Gastro-esophageal reflux disease without esophagitis (2) IBS (irritable bowel syndrome): Code(s): K58.9 - Irritable bowel syndrome without diarrhea (3) Tubular adenoma of colon: Comment: 2021=TA repeat 5 years Code(s): D12.6 - Benign neoplasm of colon, unspecified (4) Hemorrhoids: Code(s): K64.9 - Unspecified hemorrhoids Plan Pt has been lost to follow up since 07/2022 despite requesting a 6 week follow up. She tells me that she has a new orange kitten! She says she is doing well overall. She continues on her omeprazole, imipramine, proctosol cream, and fiber. She still has some fecal incontinence, but overall this has improved. The stool are solid to looser. The fiber has likely helped. She had one episode of RB on the TT after straining to move her bowels. None since. Proctosol. Her colonoscopy is UTD as it was last in 2021 and she is due for repeat in 2026. She continues to lose weight via intentional dieting, she is down 153 LBS. Her dtr a couple of years ago choking on a piece of meat. She has a granddaughter that she does not see. ROV 6 mos. Medications: New hydrocortisone 2.5% (Proctosol HC) 1 appl [place] BID PRN 30 grams 6RF hemorrhoids K64.9 - Unspecified hemorrhoids Refilled imipramine HCl 50 mg (2 x 25 mg) PO BEDTIME 60 tabs 6RF K59.00 - Constipation, unspecified wheat dextrin (Benefiber Sugar Free (dextrin)) mix into at least 4 oz water or juice before administering 1.5 grams PO BID 236 grams 6RF omeprazole 20 mg PO QAM 30 caps 6RF Coding Level of Care Code Est Pt Level 3 (79946) Diagnoses GERD (gastroesophageal reflux disease) K21.9 IBS (irritable bowel syndrome) K58.9 Tubular adenoma of colon D12.6 Hemorrhoids K64.9
== END 2023-06-30 14:38 | disposition home or self-care (01) ==
PROVIDERS: PCP Nurse Practitioner Primary Care; Visit Provider Nurse Practitioner
DX: K21.9 Gastro-esophageal reflux disease without esophagitis (principal); K58.9 Irritable bowel syndrome, unspecified; D12.6 Benign neoplasm of colon, unspecified; K64.9 Unspecified hemorrhoids
CPT/HCPCS: 99213

== ENCOUNTER → 2023-06-30 14:05 | Outpatient (BNVA) | payer OTHER, SELFPAY | PROVIDERS: PCP Nurse Practitioner Primary Care; Visit Provider Nurse Practitioner | DX: K21.9 Gastro-esophageal reflux disease without esophagitis (principal); K58.9 Irritable bowel syndrome, unspecified; K64.9 Unspecified hemorrhoids; D12.6 Benign neoplasm of colon, unspecified | CPT/HCPCS: 99212 ==

== ENCOUNTER 2023-07-23 11:29 | Outpatient (AMB) | payer OTHER, SELFPAY ==
[2023-07-23 11:31] VITALS: BMI 34.3
--- NOTE | 2023-07-23 11:31 | MHC.OFFVIS ---
Vital Signs 07/23/23 11:31 Height 4 ft 8 in Weight 153 lb BMI 34.3 Intake Visit Reasons: OV-pain in right knee last inj. 04/09/2023 Intake Note: Vikki is a 63 year old female who presents for a follow up of Right knee injection on 04/09/2023. Patient reports the last injection gave her good relief. She states that she would like to have another Right knee injection today. Her pain has returned. She describes her pain as sharp in nature. She would like to hold off on surgery for as long as possible. She has taken Tylenol which gives only mild relief. She has also done physical therapy exercises which aggravated her pain. Allergies hydrocodone [From Vicodin] Allergy (Mild, Verified 07/23/23 11:35) ITCHING SHANAE Inhibitors [SHANAE INHIBITORS] Allergy (Unknown, Verified 07/23/23 11:35) UNKNOWN ENVIROMENTAL Allergy (Mild, Uncoded 01/06/23 10:15) HAYFEVER lysol wipes Allergy (Mild, Uncoded 01/06/23 10:15) Hives avacado Allergy (Unknown, Uncoded 01/06/23 10:15) NEPHROPATHY Medication List - Last Reconciled 07/23/23 by Marcel Paiz MD albuterol sulfate 90 mcg/actuation 2 puffs PO QID PRN alcohol swabs (Alcohol Prep Pads) pad topical QID PRN amlodipine 2.5 mg PO QPM aspirin 1 tab PO BEDTIME atorvastatin 1 tab PO BEDTIME calcium carbonate-vitamin D3 600 mg-10 mcg (400 unit) 1 tab PO BID cetirizine 1 tab PO QAM ferrous sulfate (FeroSul) 325 mg PO DAILY fluticasone propionate 110 mcg/actuation (Flovent HFA) 2 puffs inhalation BID furosemide 1.5 tabs PO QAM hydrocortisone 2.5% (Proctosol HC) 1 appl [place] BID hydrocortisone 2.5% (Proctosol HC) 1 appl [place] BID PRN imipramine HCl 50 mg (2 x 25 mg) PO BEDTIME insulin glargine (Lantus Solostar U-100 Insulin) 16 units subcut BEDTIME olmesartan 40 mg PO DAILY omeprazole 20 mg PO QAM oxcarbazepine 1 tab PO BID sertraline 50 mg PO DAILY sitagliptin phosphate (Januvia) 100 mg PO DAILY 30 days topiramate 100 mg PO BID wheat dextrin (Benefiber Sugar Free (dextrin)) 1.5 grams PO BID [facility] Medical History Nicotine dependence, cigarettes, uncomplicated Right knee pain Hyponatremia Obesity Syncope Fall Colon cancer screening Primary osteoarthritis of right knee Abdominal cramping Morbid obesity Constipation Acute respiratory failure with hypoxia Hypoxia CHF (congestive heart failure) JANET (obstructive sleep apnea) Type 2 diabetes mellitus with chronic kidney disease Chronic kidney disease, stage 3 Essential hypertension Hyperlipidemia LDL goal <70 BMI 40.0-44.9, adult Family history of GERD History of migraine Hyperlipidemia Hypertension Osteoarthritis Restless leg syndrome TIA (transient ischemic attack) Acute epigastric pain Seizures Renal failure Asthma COPD (chronic obstructive pulmonary disease) Diabetes Surgical History History of arthroscopy of knee History of lumpectomy of right breast H/O esophagogastroduodenoscopy History of colonoscopy History of carpal tunnel release Hx of total knee arthroplasty History of appendectomy History of cholecystectomy Family History Father Hx of gout Diabetes Mother Diabetes Daughter Pre-diabetes Brother Cancer Social History Household Members: None Housing: Apartment Alcohol intake: never Patient Tobacco Use Status: Current everyday Tobacco user Tobacco use type: Cigarette Cigarette Packs Per Day: 1 Cigarettes Per Day: 20.0 Years Smoked: 45 Advance Directives Date on File: 02/18/21 service: No Current occupational status: disabled Physical Exam Vital Signs: BMI result Body Mass Index 34.3 Const Other: Well-nourished well-developed very friendly female awake alert and oriented x3 in no acute distress Extrem Other: Bilateral lower extremity examination shows good capillary refill, no skin lesions noted, normal sensation light touch Right knee examination shows a minimal effusion, palpable crepitus with range of motion, pain with range of motion, no instability Office Procedures Joint Injection/Drain Joint Injection/Drain Primary Site: right knee Prep: site was prepped using aseptic technique Injected: 40 mg of, DepoMedrol and 1% plain lidocaine Procedure: The patient tolerated the procedure well Coding 78674 - Large joint Procedure code (CPT) selection complete Results Reviewed Results Reviewed: X-rays of the patient's right knee show joint space narrowing, subchondral sclerosis, no acute bony abnormalities Assessment & Plan Assessment & Plan (1) Arthritis of right knee: Code(s): M17.11 - Unilateral primary osteoarthritis, right knee Category: Medical Plan Ms. Willis presents with right knee pain due to degenerative joint disease. I had a lengthy discussion with the patient regarding the treatment options. She wishes hold off on surgery for as long as possible. I agree with this plan. The risks and benefits of a right knee cortisone injection were discussed at length with the patient. The patient wished to proceed with the injection. She tolerated the injection well. She will continue with her home exercise program. She will follow up with me on an as-needed basis should her symptoms not plateau at an unacceptable level over the next few months. Feel free to call me at any time should questions regarding her orthopedic management arise. I spent 22 minutes in reviewing the patient's records and imaging studies, seeing the patient and documenting in the medical record. Orders: Orders AMB Joint Injection/Aspiration Today M17.11 - Unilateral primary osteoarthritis, right knee Coding Level of Care Code Est Pt Level 2 (28877) Diagnoses Arthritis of right knee M17.11 CPT Codes Coding - 43675 Large joint: 56525 - Large joint ([id number])
== END 2023-07-23 12:01 | disposition home or self-care (01) ==
PROVIDERS: PCP Nurse Practitioner Primary Care; Visit Provider Orthopaedic Surgery
DX: M17.11 Unilateral primary osteoarthritis, right knee (principal)
CPT/HCPCS: 20610

== ENCOUNTER → 2023-07-23 11:29 | Outpatient (BNVA) | payer OTHER, SELFPAY | PROVIDERS: PCP Nurse Practitioner Primary Care; Visit Provider Orthopaedic Surgery | DX: M17.11 Unilateral primary osteoarthritis, right knee (principal) | CPT/HCPCS: 20610; J1010 ==

== ENCOUNTER 2023-07-31 10:31 | Outpatient (AMB) | payer OTHER, SELFPAY ==
--- NOTE | 2023-07-31 07:51 | MHC.OFFVIS ---
Intake Visit Reasons: Current Smoker Allergies hydrocodone [From Vicodin] Allergy (Mild, Verified 07/23/23 11:35) ITCHING SHANAE Inhibitors [SHANAE INHIBITORS] Allergy (Unknown, Verified 07/23/23 11:35) UNKNOWN ENVIROMENTAL Allergy (Mild, Uncoded 01/06/23 10:15) HAYFEVER lysol wipes Allergy (Mild, Uncoded 01/06/23 10:15) Hives avacado Allergy (Unknown, Uncoded 01/06/23 10:15) NEPHROPATHY HPI HPI Current Smoker: Details: Initial visit for this 63yo smoker with a >100PYH. Patient has been smoking since age 16yo for 47 years at 3ppd. Currently down to 2ppd. . Denies marijuana use. Denies second hand smoke exposure. Denies exposure to chemicals or substances like asbestos. . Denies known family history of lung cancer. Denies personal history of cancers. . Denies chest CT in last year. CTA of chest 12/08/2011 - showed 3mm LLL nodule . Denies recent travel outside the [place]. Denies recent respiratory illness or recent hospitalization for respiratory issues. Denies testing positive for COVID. Admits receiving COVID Vaccine. . Denies fever, chills, new/worsening cough, hemoptysis, hoarseness or dysphagia. Denies significant chest pain, significant dyspnea or unintentional weight loss. Patient Lung Cancer Screening Questionnaire reviewed with patient by provider. . Shared Decision Making Completed. Patient meets criteria. Discussed in detail with patient, the risk vs benefit of LDCT screening. Patient consents to proceed with scan. Discussed smoking cessation. She is working to quit. Using coloring book and new kitten to distract herself from smoking [facility] Medical History (Updated 07/31/23 @ 10:54 by Tabitha Hart PA-C) Seizures Syncope History of TIA (transient ischemic attack) CHF (congestive heart failure) Essential hypertension Hyperlipidemia Type 2 diabetes mellitus with chronic kidney disease Chronic kidney disease, stage 3 Anemia COPD (chronic obstructive pulmonary disease) Asthma JANET (obstructive sleep apnea) Nicotine dependence, cigarettes, uncomplicated Restless leg syndrome Obesity Tubular adenoma of colon IBS (irritable bowel syndrome) Constipation Primary osteoarthritis of right knee Osteoarthritis Right knee pain History of migraine Surgical History (Updated 07/27/23 @ 11:18 by Tabitha Hart PA-C) History of appendectomy History of cholecystectomy History of esophagogastroduodenoscopy (EGD) History of colonoscopy History of total left knee replacement (TKR) History of arthroscopy of left knee History of arthroscopy of right knee History of elbow surgery History of surgery on wrist History of carpal tunnel release of both wrists History of lumpectomy of right breast Family History Father Hx of gout Diabetes Mother Diabetes Daughter Pre-diabetes Brother Cancer Social History (Updated 07/31/23 @ 10:55 by Tabitha Hart PA-C) Household Members: None Housing: Apartment Alcohol intake: never Patient Tobacco Use Status: Current everyday Tobacco user Tobacco use type: Cigarette Cigarette Packs Per Day: 2 Years Smoked: onset 16yo, 3ppd x 47yrs, now 2ppd, >100pyh Advance Directives Date on File: 02/18/21 service: No Current occupational status: disabled Assessment & Plan Assessment & Plan (1) Nicotine dependence, cigarettes, uncomplicated: Comment: (current smoker- onset 16yo, 3ppd x 47yrs, now 2ppd, >100pyh) Code(s): F17.210 - Nicotine dependence, cigarettes, uncomplicated Category: Medical Plan: - SDM visit completed today in office. - Patient meets criteria for LDCT for lung cancer screening purposes and is asymptomatic. - Smoking cessation counseling offered. Patients can always call [phone]. - Will arrange for a LDCT scan of the chest for screening purposes at [facility]. - Risks, benefits, and alternatives were discussed in detail and the patient agrees to proceed. - Risks discussed include but are not limited to: radiation exposure, anxiety during testing and while awaiting results, false negatives, false positives and possibility of additional intervention such as further imaging or surgical procedures for benign disease. - Benefits are obviously detection of lung cancer at an early stage which can lead to improved outcomes. - Discussed the importance of screening program compliance with adherence to yearly LDCT scan as scheduled - or sooner interval scans for personalized screening regimen. - Discussed follow up plan. Our office will send a letter discussing results and if needed set up phone call and office visit based on CT findings. - Patient educated on results categorization and the management decisions for suspicious findings potentially found on the screening LDCT scan. Any patient with a Lung RADS score of 3 or 4 will be reviewed by a multidisciplinary team at [facility] to form a plan of action in regards to scan findings. - If further work up is warranted for a suspicious lung finding this will be followed by the Lung Cancer Screening program in conjunction with the Thoracic Surgery Department at [facility]. - A copy of the office note and LDCT will be sent to the patient's PCP - as well as documentation on any associated further plans of care. - Incidental findings on LDCT are the PCP's responsibility. These findings are indicated with an S finding on the LDCT Assessment. A note discussing the findings will be sent to the PCP who is then responsible for further management. - All questions answered.? Coding Level of Care Code Lung Cancer Screening G0296 Diagnoses Nicotine dependence, cigarettes, uncomplicated F17.210
== END 2023-07-31 10:49 | disposition home or self-care (01) ==
PROVIDERS: PCP Nurse Practitioner Primary Care; Referring Provider Nurse Practitioner Primary Care; Visit Provider Physician Assistant Medical
DX: F17.210 Nicotine dependence, cigarettes, uncomplicated (principal)
CPT/HCPCS: G0296

== ENCOUNTER 2023-07-31 10:44 | Outpatient (REF) | payer OTHER, SELFPAY ==
--- NOTE | ~2023-07-31 | CT_ITS ---
EXAMINATION: CT CHEST SCREENING CLINICAL INFORMATION: Nicotine dependence, cigarettes, uncomplicated. The patient is a current smoker with a 52 pack-year history of smoking. COMPARISON: X-ray chest 03/06/2023. CT chest 01/12/2020. CT chest 12/08/2011. TECHNIQUE: Multidetector volumetric CT imaging of the chest is performed on a Siemens SOMATOM Definition scanner without contrast using low dose technique. Additional 2D coronal and sagittal reformatted images and axial 3D maximum intensity projection (MIP) images are generated on the CT workstation. This CT examination was performed using dose optimization techniques as appropriate, variously including the following: *Automated exposure control. *Adjustment of mA and/or kV according to patient size (this includes techniques or standardized protocols for targeted exams where dose is matched to indication/reason for exam; i.e. extremities or head). *Use of iterative reconstruction technique. DLP: 53 mGy-cm FINDINGS: PULMONARY NODULES: The following pulmonary nodules are present: 3 mm right upper lobe (5:157). 2 mm right upper lobe (5:212). 3 mm left upper lobe lateral (5:221). Calcified right middle lobe nodule adjacent to minor fissure (5:232). 6 mm subpleural left lower lobe nodule (5:330). This is unchanged when compared to the 2011 exam but not well visualized when compared with the 2019 study as there was significant artifact. LUNGS: There are [id number] emphysematous changes. Mild diffuse bronchial thickening is seen with some areas of mucus impaction (for example, right lower lobe 5:313). MEDIASTINUM: The mediastinum is normal. CORONARY ARTERY CALCIFICATION: Minimal. PLEURA: There is no pleural effusion. No pleural mass or thickening. AXILLA: No lymphadenopathy. UPPER ABDOMEN: Unremarkable. Status post cholecystectomy. OSSEOUS STRUCTURES: Unremarkable. CT/CT lung screening IMPRESSION: Benign-appearing pulmonary nodules, the largest of which measures 6 mm and is unchanged dating back to 2011. No evidence of malignancy. ASSESSMENT: Lung-RADS category 2: Benign. RECOMMENDATION: Routine annual low-dose CT screening in 12 months.
== END 2023-07-31 10:45 | disposition home or self-care (01) ==
LOC: HO.CT 10:44
PROVIDERS: PCP Nurse Practitioner Primary Care; Visit Provider Physician Assistant Medical
DX: Z12.2 Encounter for screening for malignant neoplasm of respiratory organs (principal); F17.210 Nicotine dependence, cigarettes, uncomplicated
CPT/HCPCS: 71271; G0296

== ENCOUNTER → 2023-09-02 14:00 | Outpatient (BNV) | payer OTHER, SELFPAY | PROVIDERS: PCP Nurse Practitioner Primary Care; Visit Provider Internal Medicine | DX: D61.818 Other pancytopenia (principal); R16.2 Hepatomegaly with splenomegaly, not elsewhere classified | CPT/HCPCS: 99204 ==

== ENCOUNTER 2023-09-04 13:23 | Outpatient (REF) | payer OTHER, SELFPAY ==
[2023-09-04 14:54] LABS: Alanine Aminotransferase 7 U/L (0-31); Albumin Level 3.4 g/dL (3.5-5.0); Alkaline Phosphatase 92 U/L (39-117); Anion Gap 8 (12-20); Aspartate Amino Transferase 10 U/L (5-31); Bilirubin Total 0.2 mg/dL (0.0-1.0); Blood Urea Nitrogen 22 mg/dL (9-16); Calcium 9.4 mg/dL (8.4-10.2); Carbon Dioxide 25 mmol/L (22-29); Chloride 99 mmol/L (96-108); Estimated Glomerular Filt Rate 43; Glucose Random 80 mg/dL (60-115); Sodium 128 mmol/L (135-145); Total Protein 6.8 g/dL (6.5-8.0)
[2023-09-09 12:18] LABS: Methylmalonic Acid 333 nmol/L (87-318)
[2023-09-11 12:23] LABS: IgA 410 mg/dL (70-320); IgG 1318 mg/dL (600-1540); IgM 38 mg/dL (50-300)
== END 2023-09-04 13:24 | disposition home or self-care (01) ==
LOC: HO.LAB 13:23
PROVIDERS: PCP Nurse Practitioner Primary Care; Visit Provider Internal Medicine
DX: D64.9 Anemia, unspecified (principal)
CPT/HCPCS: 36415; 80053; 82784; 83921; 86334; 88184; 88185

== ENCOUNTER 2023-10-24 17:34 | Emergency (ER) | payer OTHER, SELFPAY ==
--- NOTE | ~2023-10-24 | XR_ITS ---
EXAMINATION: XR HAND, RIGHT CLINICAL INFORMATION: Swelling. Ecchymosis. Catheter right. COMPARISON: None available. TECHNIQUE: PA, lateral, and oblique views of the right hand. FINDINGS: Diffuse osteopenia is present. No fractures or acute appearing subluxations visualized. Soft tissue prominence is present along the dorsum of the metacarpals and is associated with possible mild focal subcutaneous emphysematous changes. No embedded radiopaque foreign bodies. XR/XR hand RT min 3V IMPRESSION: Soft tissue inflammatory changes and soft tissue emphysematous changes as noted above. No embedded radiopaque foreign bodies. No fractures.
[2023-10-24 18:13] VITALS: BP 100/55; PULSE 97; RESP 24; TEMP 36.8; O2SAT 98; BMI 30.1
--- NOTE | 2023-10-24 18:13 | ED_ITS ---
HPI - Animal Bite General Chief Complaint: Wound/Laceration Stated Complaint: rt arm cat bite Time Seen by Provider: 10/24/23 18:39 Source: patient, RN notes reviewed and old records reviewed Mode of arrival: ambulatory History of Present Illness ED Provider: Kayleen Capps PA-C HPI narrative: 63-year-old female with a past medical history of seizures, TIA, CHF, HTN, HLD, diabetes, CKD, anemia, COPD, JANET, presenting to the ED complaining of right upper extremity wounds & right hand pain/swelling with limited ROM s/p being attacked by her kitten this morning around 10:00. States she was defending her other CT when kitten attacked her. Patient is up-to-date on vaccinations. States her cat is not up-to-date however is a house cat that does not go outside. Denies fever, chills, numbness/tingling Related Data Home Medications ?Medication ?Instructions ?Recorded ?Confirmed atorvastatin 40 mg tablet 1 tab PO BEDTIME 01/12/20 07/23/23 calcium carbonate 600 mg-vitamin 1 tab PO BID 01/12/20 07/23/23 D3 10 mcg (400 unit) tablet cetirizine 10 mg tablet 1 tab PO QAM 01/12/20 07/23/23 oxcarbazepine 150 mg tablet 1 tab PO BID 01/12/20 07/23/23 sertraline 50 mg tablet 50 mg PO DAILY 08/20/20 07/23/23 albuterol sulfate 90 mcg/actuation 2 puff PO QID PRN Wheezing 02/18/21 07/23/23 aerosol inhaler aspirin 81 mg tablet,delayed 1 tab PO BEDTIME 02/18/21 07/23/23 release fluticasone propionate 110 2 puff inhalation BID 02/18/21 07/23/23 mcg/actuation HFA aerosol inhaler (Flovent HFA) furosemide 40 mg tablet 1.5 tab PO QAM 02/18/21 07/23/23 insulin glargine 100 unit/mL (3 16 unit subcut BEDTIME 02/18/21 07/23/23 mL) subcutaneous pen (Lantus Solostar U-100 Insulin) alcohol swabs (Alcohol Prep Pads) pad topical QID PRN yes 09/19/21 07/23/23 amlodipine 2.5 mg tablet 2.5 mg PO QPM 09/19/21 07/23/23 ferrous sulfate 325 mg (65 mg 325 mg PO DAILY 09/19/21 07/23/23 iron) tablet (FeroSul) olmesartan 40 mg tablet 40 mg PO DAILY 09/19/21 07/23/23 topiramate 100 mg tablet 100 mg PO BID 09/19/21 07/23/23 Previous Rx's ?Medication ?Instructions ?Recorded sitagliptin phosphate 100 mg 100 mg PO DAILY 30 days #30 tabs 08/15/21 tablet (Januvia) hydrocortisone 2.5 % topical cream 1 appl [place] BID hemorrhoids #30 grams 08/12/22 with perineal applicator (Proctosol HC) hydrocortisone 2.5 % topical cream 1 appl [place] BID PRN hemorrhoids #30 06/30/23 with perineal applicator grams (Proctosol HC) imipramine HCl 25 mg tablet 50 mg (2 x 25 mg) PO BEDTIME #60 06/30/23 tabs omeprazole 20 mg capsule,delayed 20 mg PO QAM #30 caps 06/30/23 release wheat dextrin 3 gram/3.8 gram oral 1.5 g PO BID #236 grams 06/30/23 powder (Benefiber Sugar Free (dextrin)) cyanocobalamin (vitamin B-12) 1,000 mcg PO DAILY #90 tabs 09/09/23 1,000 mcg tablet (Vitamin B-12) amoxicillin 875 mg-potassium 1 tab PO BID 7 days #14 tabs 10/24/23 clavulanate 125 mg tablet bacitracin 500 unit/gram topical 1 appl topical TID 7 days #144 ea 10/24/23 packet Allergies Allergy/AdvReac Type Severity Reaction Status Date / Time hydrocodone [From Vicodin] Allergy Mild ITCHING Verified 10/24/23 18:16 SHANAE Inhibitors Allergy Unknown UNKNOWN Verified 10/24/23 18:16 [SHANAE INHIBITORS] ENVIROMENTAL Allergy Mild HAYFEVER Uncoded 09/02/23 14:13 lysol wipes Allergy Mild Hives Uncoded 09/02/23 14:13 avacado Allergy Unknown NEPHROPATHY Uncoded 09/02/23 14:13 Review of Systems 2 Review of Systems: Constitutional: No Fever, No Chills ENT/Mouth: No Ear Pain, No Nasal Congestion, No sore throat, No Rhinorrhea, No Swallowing Difficulty Cardiovascular: No Chest Pain, No SOB Respiratory: No Cough Gastrointestinal: No Nausea, No Vomiting, No Abdominal pain Musculoskeletal: +joint pain, No Myalgias, +Joint Swelling Skin: +Skin Lesions, No rash Neuro: No Weakness, No Numbness, No Paresthesias Yes all other systems are reviewed and are negative Constitutional: Constitutional: Reports as per [facility] Past Medical History Attestation statement: The following information was validated with the patient. Source: old records reviewed Medical History Seizures Syncope History of TIA (transient ischemic attack) CHF (congestive heart failure) Essential hypertension Hyperlipidemia Type 2 diabetes mellitus with chronic kidney disease Chronic kidney disease, stage 3 Anemia COPD (chronic obstructive pulmonary disease) Asthma JANET (obstructive sleep apnea) Nicotine dependence, cigarettes, uncomplicated Restless leg syndrome Obesity Tubular adenoma of colon IBS (irritable bowel syndrome) Constipation Primary osteoarthritis of right knee Osteoarthritis Right knee pain History of migraine Surgical History History of appendectomy History of cholecystectomy History of esophagogastroduodenoscopy (EGD) History of colonoscopy History of total left knee replacement (TKR) History of arthroscopy of left knee History of arthroscopy of right knee History of elbow surgery History of surgery on wrist History of carpal tunnel release of both wrists History of lumpectomy of right breast Family History Family History Father Hx of gout Diabetes Mother Diabetes Daughter Pre-diabetes Brother Cancer Social History Social History Household Members: None Housing: Apartment Alcohol intake: never Patient Tobacco Use Status: Current everyday Tobacco user Tobacco use type: Cigarette Cigarette Packs Per Day: 2 Years Smoked: onset 16yo, 3ppd x 47yrs, now 2ppd, >100pyh Advance Directives: Yes Advance Directives on File: Yes Advance Directives Date on File: 02/18/21 service: No Current occupational status: disabled Physical Exam ED Vital Signs: Vital Signs - 24 hr 10/24/23 18:13 Temperature 98.2 F Pulse Rate 97 Respiratory Rate 24 H Blood Pressure 100/55 L Pulse Oximetry 98 Oxygen Delivery Method Room Air BMI result Body Mass Index 30.1 Const General: cooperative, healthy appearing and no acute distress Orientation/consciousness: patient oriented x3 Limitations: no limitations HENMT Head: Yes normal to inspection and Yes atraumatic Ears: hearing grossly normal bilaterally General nose exam: Normal external nose present Face and sinus: Yes normal facial exam Eyes General: appearance normal, both eyes and all related structures EOM: EOMs intact bilaterally Neck Neck: Yes normal visual inspection and Yes no meningeal signs Resp Effort & Inspection: normal respiratory effort and no respiratory distress Cardio Rate: regular rate Skin Rashes: no rashes Neuro General: patient oriented x3, tone normal and no meningeal signs Cranial nerves: Yes CN's II-XII intact bilaterally Gait exam (Neuro): Normal gait present Extrem Other: Please refer to images above. Multiple wounds noted to RUE with overlying scabbing. Right hand > volar aspect with swelling, ecchymosis and faint erythema. Tender to palpation. Limited flexion and extension of digits secondary to pain. Neurovascularly intact. No active drainage Course Course Course Narrative: This is a Rapid Medical Exam performed in triage by Kayleen Capps PA-C. Full HPI, ROS and PE to be performed by primary ED provider. 63 year-old F w/ PMHx CKD, TIA, COPD, GERD, IBS, presenting to the ED c/o cat bites to RUE x today from her cat this AM. Cat is not UTD on vaccinations but is her house-cat, patient is UTD on vaccinations PE: RUE w/multiple lacs/abrasions - R hand with swelling/ecchymosis & ttp, limited ROM 2/2 pain Plan: Labs, XR -no leukocytosis. H/H at patient's baseline. Acute on chronic hyponatremia > asymptomatic > will give gentle IVF. -Slight JENNIFER on CKD, patient with elevated priors discussed with patient multiple times recommended admission for possible tenosynovitis/worsening infection from cat bite wounds and possible risks, however patient not agreeable to stay, states she needs to go home to take care of her kittens. Will give dose of IV Unasyn in the ED and discharged with Augmentin. Patient will sign out AMA. 2014--XR hand RT min 3V IMPRESSION: Soft tissue inflammatory changes and soft tissue emphysematous changes as noted above. No embedded radiopaque foreign bodies. No fractures. >Results discussed with patient including worrisome signs and symptoms and strict return precautions and recommended admission. Patient A&O x3, competent to make her own decisions will sign out AMA. Always welcome return to the ED. discussed needed close follow-up and compliance with antibiotics with re- evaluation in the next couple of days. Medications Administered Discontinued Medications Generic Name Dose Route Start Last Admin Trade Name Jerzy PRN Reason Stop Dose Admin Acetaminophen 975 mg 10/24/23 18:54 10/24/23 19:13 Acetaminophen 325 Mg Tablet PO 10/24/23 18:55 975 mg ONCE ONE Administration Ampicillin Sodium/Sulbactam 100 mls @ 200 mls/hr 10/24/23 19:16 10/24/23 19:50 Sodium 3 gm/ Sodium Chloride IV 10/24/23 19:45 200 mls/hr ONCE ONE Administration Sodium Chloride 500 mls @ 999 mls/hr 10/24/23 19:30 10/24/23 19:50 Ns IV 10/24/23 20:00 999 mls/hr .Q31M INDU Administration Medical Decision Making Medical Decision Making MDM Narrative: 63-year-old female with a past medical history of seizures, TIA, CHF, HTN, HLD, diabetes, CKD, anemia, COPD, JANET, presenting to the ED complaining of right upper extremity wounds & right hand pain/swelling with limited ROM s/p being attacked by her kitten this morning around 10:00AM. On exam initially tachypneic, NAD, nontoxic appearing, physical exam as noted above, please refer to images. Concern for cellulitis vs tenosynovitis vs fracture and contusion. Low suspicion for severe sepsis at this time. Cannot close wounds at this time. Plan: Labs, lactic/blood cultures, x-ray, IV antibiotics Rabies series not needed at this time Please refer to course for remaining clinical decision making, interpretation of labs/imaging results, and discussions with consultants and/or family members. Differential Diagnosis Differential Diagnoses: The differential diagnosis associated with the presentation includes As above Admission/Observation Consideration of admission/observation: Escalation of care including admission/observation considered Lab Data [facility] Lab Attestation statement: I reviewed the patient's lab results. 10/24/23 18:39 10/24/23 18:38 Labs: Lab Results 0710/24/23 10/24/23 Range/Units 18:38 18:39 19:16 WBC 4.7 L (4.8-10.8) X10*3/uL RBC 3.10 L (4.20-5.50) X10*6/uL Hgb 8.9 L (12.0-16.0) g/dl Hct 26.4 L (37.0-47.0) % MCV 85.2 (80.0-98.0) fL MCH 28.7 (27.0-33.0) pg MCHC 33.7 (31.0-35.0) g/dl RDW 15.0 (11.0-16.0) % Plt Count 141 L (160-400) X10*3/uL MPV 9.0 L (9.4-12.3) fL Immature Gran % (Auto) 0.4 (0.0-0.4) % Neut % (Auto) 64.1 (45-73) % Lymph % (Auto) 28.0 (20-40) % [place] % (Auto) 7.3 (2-11) % Eos % (Auto) 0.0 (0-4) % Baso % (Auto) 0.2 (0-2) % Lymph # (Auto) 1.3 (1.2-4.9) X10*3/uL [place] # (Auto) 0.3 (0.1-1.2) X10*3/uL Eos # (Auto) 0.0 (0.0-0.4) X10*3/uL Baso # (Auto) 0.0 (0.0-0.2) X10*3/uL Abs Immat Gran (auto) 0.02 (0.00-0.03) X10*3/uL Absolute Neuts (auto) 3.0 (2.0-8.3) x10*3/uL Absolute Nucleated RBC 0.000 (0.0-0.012) X10*3/uL Nucleated RBC % (auto) 0.0 (0.0-0.2) /100WBC ESR 62 H (0-20) MM/HR Sodium 126 L (135-145) mmol/L Potassium 4.3 (3.3-5.1) mmol/L Chloride 95 L (96-108) mmol/L Carbon Dioxide 21 L (22-29) mmol/L Anion Gap 14 (12-20) BUN 35 H (9-16) mg/dL Creatinine 1.49 H (0.5-1.4) mg/dL Estim Creat Clear Calc 30.9 Estimated GFR 35 Random Glucose 86 (60-115) mg/dL Lactic Acid 0.9 (0.5-2.0) mmol/L Calcium 9.7 (8.4-10.2) mg/dL C-Reactive Protein 0.70 H (< or = 0.50) mg/dL Independent Interpretation I performed an independent interpretation of an: Plain X-Ray Radiology Impression Discussion of test interpretation with radiology: I have reviewed the radiologist's reading. External Record Review External record reviewed: Inpatient record, Office record, Outpatient record, Prior outpatient labs, Prior outpatient radiology, Primary care record and Outside ED record Tests considered The following testing was considered but not selected: As above Prescription Management I considered prescription management with: Pain Medication and Antibiotic Critical Care Time Critical Care Time Critical Care Time: Yes Total Critical Care Time: 40 Attestation: I have personally provided critical care time exclusive of time spent on separately billable procedures. Time includes review of lab data, radiology results, discussion with consultants, and monitoring for potential decompensation. Intervention performed as documented. Discharge Plan Discharge Clinical Impression: Cat bite, Cellulitis, Tenosynovitis Patient Disposition: Left Against Medical Advice Instructions: Animal Bite (ED), Cellulitis (DC) Additional Instructions: Cat bites have high likelihood of getting infected. You were given a dose of IV antibiotics in the emergency department Continue taking prescribed antibiotics until completion You may also apply topical bacitracin You should be re-evaluated in 2 days We recommended admission however you are leaving, you are always welcome to return If your symptoms persist or worsen, swelling worsens, you have drainage, fever or limited range of motion return to the ED immediately You need to follow-up with orthopedic hand specialist Prescriptions: New amoxicillin-pot clavulanate 875-125 mg tablet 1 tab PO BID 7 Days Qty: 14 0RF bacitracin 500 unit/gram packet 1 appl topical TID 7 Days Qty: 144 0RF No Action Januvia 100 mg tablet 100 mg PO DAILY 30 Days Qty: 30 1RF oxcarbazepine 150 mg tablet 1 tab PO BID calcium carbonate-vitamin D3 600 mg(1,500mg) -400 unit tablet 1 tab PO BID atorvastatin 40 mg tablet 1 tab PO BEDTIME cetirizine 10 mg tablet 1 tab PO QAM furosemide 40 mg tablet 1.5 tab PO QAM aspirin 81 mg tablet,delayed release (DR/EC) 1 tab PO BEDTIME albuterol sulfate 90 mcg/actuation HFA aerosol inhaler 2 puff PO QID PRN (Reason: Wheezing) fluticasone propionate [Flovent HFA] 110 mcg/actuation HFA aerosol inhaler 2 puff inhalation BID insulin glargine [Lantus Solostar U-100 Insulin] 100 unit/mL (3 mL) insulin pen 16 unit subcut BEDTIME cyanocobalamin (vitamin B-12) [Vitamin B-12] 1,000 mcg Tablet 1,000 mcg PO DAILY Qty: 90 3RF sertraline 50 mg tablet 50 mg PO DAILY topiramate 100 mg tablet 100 mg PO BID alcohol swabs [Alcohol Prep Pads] Pads, Medicated topical QID PRN (Reason: yes) ferrous sulfate [FeroSul] 325 mg (65 mg iron) tablet 325 mg PO DAILY amlodipine 2.5 mg tablet 2.5 mg PO QPM olmesartan 40 mg tablet 40 mg PO DAILY imipramine HCl 25 mg tablet 50 mg PO BEDTIME Qty: 60 6RF omeprazole 20 mg capsule,delayed release(DR/EC) 20 mg PO QAM Qty: 30 6RF hydrocortisone [Proctosol HC] 2.5 % cream with perineal applicator 1 appl [place] BID PRN (Reason: hemorrhoids) Qty: 30 6RF Benefiber Sugar Free (dextrin) 3 gram/3.8 gram powder 1.5 g PO BID Qty: 236 6RF Rx Instructions: mix into at least 4 oz water or juice before administering hydrocortisone [Proctosol HC] 2.5 % cream with perineal applicator 1 appl [place] BID Qty: 30 6RF Rx Instructions: BE SURE TO INCLUDE RECTAL APPICATOR!! Referrals: [facility] [place] [facility] [Provider Group] - 5 days April Dave NP [Primary Care Provider] - 2 days Stand Alone Forms: Against Medical Advice Print Language: Luxembourgish
[2023-10-24 18:52] LABS: MANUAL DIFF FLAG NO
[2023-10-24 18:53] LABS: Basophils Percent Auto 0.2 % (0-2); Hematocrit 26.4 % (37.0-47.0); Hemoglobin 8.9 g/dl (12.0-16.0); Imm Gran Abs Auto 0.02 X10*3/uL (0.00-0.03); Imm Gran Pct Auto 0.4 % (0.0-0.4); Lymphocytes Absolute Auto 1.3 X10*3/uL (1.2-4.9); Mean Corpuscular HGB Conc 33.7 g/dl (31.0-35.0); Mean Corpuscular Hemoglobin 28.7 pg (27.0-33.0); Mean Corpuscular Volume 85.2 fL (80.0-98.0); Monocytes Absolute Auto 0.3 X10*3/uL (0.1-1.2); Monocytes Percent Auto 7.3 % (2-11); Neutrophils Percent Auto 64.1 % (45-73); Platelet Count 141 X10*3/uL (160-400); White Blood Count 4.7 X10*3/uL (4.8-10.8)
[2023-10-24 19:04] LABS: Anion Gap 14 (12-20); Blood Urea Nitrogen 35 mg/dL (9-16); Calcium 9.7 mg/dL (8.4-10.2); Carbon Dioxide 21 mmol/L (22-29); Chloride 95 mmol/L (96-108); Creatinine Clr Calc Pharmacy 30.9; Estimated Glomerular Filt Rate 35; Glucose Random 86 mg/dL (60-115); Potassium 4.3 mmol/L (3.3-5.1); Sodium 126 mmol/L (135-145)
[2023-10-24] MEDS: Acetaminophen 325 MG TABLET 975 MG PO (19:13)
[2023-10-24 19:31] LABS: Erythrocyte Sedimentation Rate 62 MM/HR (0-20)
[2023-10-24 19:32] LABS: Lactic Acid 0.9 mmol/L (0.5-2.0)
[2023-10-24] MEDS: Ampicillin Sodium/Sulbactam Na 3 GM in 0.9 % Sodium Chloride 100 ML IV (19:50)
[2023-10-24] MEDS: 0.9 % Sodium Chloride 500 ML 999 ML IV (19:50)
[2023-10-24 20:44] VITALS: BP 100/55; PULSE 97; RESP 24; TEMP 36.8; O2SAT 98
== END 2023-10-24 20:45 | disposition left against medical advice (07) ==
PROVIDERS: Physician Assistant; Emergency Provider Emergency Medicine; PCP Nurse Practitioner Primary Care
DX: S61.451A Open bite of right hand, initial encounter (principal); W55.01XA Bitten by cat, initial encounter; L03.113 Cellulitis of right upper limb; M65.9 Synovitis and tenosynovitis, unspecified; Z53.29 Procedure and treatment not carried out because of patient's decision for other reasons; Y93.89 Activity, other specified; Y92.039 Unspecified place in apartment as the place of occurrence of the external cause; Y99.9 Unspecified external cause status; Z86.73 Personal history of transient ischemic attack (TIA), and cerebral infarction without residual deficits; F17.210 Nicotine dependence, cigarettes, uncomplicated
CPT/HCPCS: 36415; 73130; 80048; 83605; 85025; 85652; 86140; 87040; 96365; 99284; J0295

== ENCOUNTER 2023-11-25 13:11 | Outpatient (AMB) | payer OTHER, SELFPAY ==
--- NOTE | 2023-11-25 13:15 | A.OFFVIS_ITS ---
Intake Visit Reasons: New prob- RT elbow pain Intake Note: Vikki a 63 year old left hand dominant female who presents today for an evaluation of right elbow pain. Patient reports about 4-5 months ago she had fallen on her elbow on a cement floor. She found no relief with prescribed medication from her PCP however she does not recall the name of mediation. Her pain is primarily located on her elbow that radiates down her arm. She has swelling in her wrist however she does not have pain in her wrist. Denies num bness or tingling. Allergies hydrocodone [From Vicodin] Allergy (Mild, Verified 11/25/23 13:41) ITCHING SHANAE Inhibitors [SHANAE INHIBITORS] Allergy (Unknown, Verified 11/25/23 13:41) UNKNOWN ENVIROMENTAL Allergy (Mild, Uncoded 11/25/23 13:16) HAYFEVER lysol wipes Allergy (Mild, Uncoded 11/25/23 13:16) Hives avacado Allergy (Unknown, Uncoded 11/25/23 13:16) NEPHROPATHY Medication List - Last Reconciled 11/25/23 by Renea Pleitez PA-C albuterol sulfate 90 mcg/actuation 2 puffs PO QID PRN alcohol swabs (Alcohol Prep Pads) pad topical QID PRN amlodipine 2.5 mg PO QPM amoxicillin-pot clavulanate 875-125 mg 1 tab PO BID 7 days aspirin 1 tab PO BEDTIME atorvastatin 1 tab PO BEDTIME bacitracin 1 appl topical TID 7 days calcium carbonate-vitamin D3 600 mg-10 mcg (400 unit) 1 tab PO BID cetirizine 1 tab PO QAM cyanocobalamin (vitamin B-12) (Vitamin B-12) 1,000 mcg PO DAILY ferrous sulfate (FeroSul) 325 mg PO DAILY fluticasone propionate 110 mcg/actuation (Flovent HFA) 2 puffs inhalation BID furosemide 1.5 tabs PO QAM hydrocortisone 2.5% (Proctosol HC) 1 appl [place] BID hydrocortisone 2.5% (Proctosol HC) 1 appl [place] BID PRN imipramine HCl 50 mg (2 x 25 mg) PO BEDTIME insulin glargine (Lantus Solostar U-100 Insulin) 16 units subcut BEDTIME olmesartan 40 mg PO DAILY omeprazole 20 mg PO QAM oxcarbazepine 1 tab PO BID sennosides (Senna Laxative) 17.2 mg (2 x 8.6 mg) PO BEDTIME sertraline 50 mg PO DAILY sitagliptin phosphate (Januvia) 100 mg PO DAILY 30 days topiramate 100 mg PO BID wheat dextrin (Benefiber Sugar Free (dextrin)) 1.5 grams PO BID HPI HPI New prob- RT elbow pain: Details: 63 year old left hand dominant female who presents today for an evaluation of right elbow pain. Patient reports about 4-5 months ago she had fallen on her elbow on a cement floor. She was seen in the ED , xrays obtained and she was referred to our office for ortho eval. She states the pain is primarliy present with lifting which is along the bicep region. No pain in the wrist. [facility] Medical History Seizures Syncope History of TIA (transient ischemic attack) CHF (congestive heart failure) Essential hypertension Hyperlipidemia Type 2 diabetes mellitus with chronic kidney disease Chronic kidney disease, stage 3 Anemia COPD (chronic obstructive pulmonary disease) Asthma JANET (obstructive sleep apnea) Nicotine dependence, cigarettes, uncomplicated Restless leg syndrome Obesity Tubular adenoma of colon IBS (irritable bowel syndrome) Constipation Primary osteoarthritis of right knee Osteoarthritis Right knee pain History of migraine Surgical History History of appendectomy History of cholecystectomy History of esophagogastroduodenoscopy (EGD) History of colonoscopy History of total left knee replacement (TKR) History of arthroscopy of left knee History of arthroscopy of right knee History of elbow surgery History of surgery on wrist History of carpal tunnel release of both wrists History of lumpectomy of right breast Family History Father Hx of gout Diabetes Mother Diabetes Daughter Pre-diabetes Brother Cancer Social History (Updated 11/25/23 @ 13:17 by MANI Blanco) Household Members: None Housing: Apartment Alcohol intake: never Patient Tobacco Use Status: Current everyday Tobacco user Tobacco use type: Cigarette Cigarette Packs Per Day: 2 Years Smoked: onset 16yo, 3ppd x 47yrs, now 2ppd, >100pyh Advance Directives Date on File: 02/18/21 service: No Current occupational status: disabled Current occupation: left hand dominant Review of Systems Const All systems reviewed & are unremarkable except as noted in HPI and below Physical Exam Extrem Other: Right Elbow skin intact. No erythema or swelling. ROM full without pain. Tenderness over the lateral epicondyle and pain with resisted wrist extension. NVI. Results Reviewed Results Reviewed: xrays of the right elbow obtained in the ED on 06/23/23 are negative for acute fracture or dislocations. Assessment & Plan Assessment & Plan (1) Right elbow tendonitis: Code(s): M77.8 - Other enthesopathies, not elsewhere classified Category: Medical Plan: We discussed options which include PT, NSAIDs and injections. She will defer on the injection today and proceed with PT and NSAIDs. If symptoms persist she will contact me for an injection, otherwise, prn. Orders: Orders PT Evaluation and Treatment Today M77.8 - Other enthesopathies, not elsewhere classified Coding Level of Care Code New Pt Level 3 (07578) Diagnoses Right elbow tendonitis M77.8
== END 2023-11-25 14:14 | disposition home or self-care (01) ==
PROVIDERS: PCP Nurse Practitioner Primary Care; Visit Provider Physician Assistant
DX: M77.8 Other enthesopathies, not elsewhere classified (principal)
CPT/HCPCS: 99203

== ENCOUNTER → 2023-11-25 13:11 | Outpatient (BNVA) | payer OTHER, SELFPAY | PROVIDERS: PCP Nurse Practitioner Primary Care; Visit Provider Physician Assistant | DX: M17.11 Unilateral primary osteoarthritis, right knee (principal); M25.561 Pain in right knee | CPT/HCPCS: 20610; 99202; 99212; J1010 ==

== ENCOUNTER 2023-11-25 13:38 | Outpatient (AMB) | payer OTHER, SELFPAY ==
--- NOTE | 2023-11-25 13:39 | A.OFFVIS_ITS ---
Vital Signs 11/25/23 13:40 Height 4 ft 10 in Weight 144 lb BMI 30.1 Intake Visit Reasons: Right knee pain Intake Note: Ms. Willis is a 63-year-old female who presents with complaints of right knee pain. She describes her pain as sharp in nature. Her pain has gotten worse over the last few years in spite of continued non operative treatments. She has done physical therapy exercises which aggravated her pain. She has also tried Tylenol and anti-inflammatory medicines which gave her minimal relief. She has had cortisone injections which gave her fairly good relief. She wishes to hold off on surgery if at all possible. Allergies hydrocodone [From Vicodin] Allergy (Mild, Verified 11/25/23 13:41) ITCHING SHANAE Inhibitors [SHANAE INHIBITORS] Allergy (Unknown, Verified 11/25/23 13:41) UNKNOWN ENVIROMENTAL Allergy (Mild, Uncoded 11/25/23 13:16) HAYFEVER lysol wipes Allergy (Mild, Uncoded 11/25/23 13:16) Hives avacado Allergy (Unknown, Uncoded 11/25/23 13:16) NEPHROPATHY Medication List - Last Reconciled 11/25/23 by Marcel Paiz MD albuterol sulfate 90 mcg/actuation 2 puffs PO QID PRN alcohol swabs (Alcohol Prep Pads) pad topical QID PRN amlodipine 2.5 mg PO QPM amoxicillin-pot clavulanate 875-125 mg 1 tab PO BID 7 days aspirin 1 tab PO BEDTIME atorvastatin 1 tab PO BEDTIME bacitracin 1 appl topical TID 7 days calcium carbonate-vitamin D3 600 mg-10 mcg (400 unit) 1 tab PO BID cetirizine 1 tab PO QAM cyanocobalamin (vitamin B-12) (Vitamin B-12) 1,000 mcg PO DAILY ferrous sulfate (FeroSul) 325 mg PO DAILY fluticasone propionate 110 mcg/actuation (Flovent HFA) 2 puffs inhalation BID furosemide 1.5 tabs PO QAM hydrocortisone 2.5% (Proctosol HC) 1 appl [place] BID hydrocortisone 2.5% (Proctosol HC) 1 appl [place] BID PRN imipramine HCl 50 mg (2 x 25 mg) PO BEDTIME insulin glargine (Lantus Solostar U-100 Insulin) 16 units subcut BEDTIME olmesartan 40 mg PO DAILY omeprazole 20 mg PO QAM oxcarbazepine 1 tab PO BID sennosides (Senna Laxative) 17.2 mg (2 x 8.6 mg) PO BEDTIME sertraline 50 mg PO DAILY sitagliptin phosphate (Januvia) 100 mg PO DAILY 30 days topiramate 100 mg PO BID wheat dextrin (Benefiber Sugar Free (dextrin)) 1.5 grams PO BID PFSH Medical History Seizures Syncope History of TIA (transient ischemic attack) CHF (congestive heart failure) Essential hypertension Hyperlipidemia Type 2 diabetes mellitus with chronic kidney disease Chronic kidney disease, stage 3 Anemia COPD (chronic obstructive pulmonary disease) Asthma JANET (obstructive sleep apnea) Nicotine dependence, cigarettes, uncomplicated Restless leg syndrome Obesity Tubular adenoma of colon IBS (irritable bowel syndrome) Constipation Primary osteoarthritis of right knee Osteoarthritis Right knee pain History of migraine Surgical History History of appendectomy History of cholecystectomy History of esophagogastroduodenoscopy (EGD) History of colonoscopy History of total left knee replacement (TKR) History of arthroscopy of left knee History of arthroscopy of right knee History of elbow surgery History of surgery on wrist History of carpal tunnel release of both wrists History of lumpectomy of right breast Family History Father Hx of gout Diabetes Mother Diabetes Daughter Pre-diabetes Brother Cancer Social History (Updated 11/25/23 @ 13:17 by MANI Blanco) Household Members: None Housing: Apartment Alcohol intake: never Patient Tobacco Use Status: Current everyday Tobacco user Tobacco use type: Cigarette Cigarette Packs Per Day: 2 Years Smoked: onset 16yo, 3ppd x 47yrs, now 2ppd, >100pyh Advance Directives Date on File: 02/18/21 service: No Current occupational status: disabled Current occupation: left hand dominant Physical Exam Vital Signs: BMI result Body Mass Index 30.1 Const Other: Well-nourished well-developed very friendly female awake alert and oriented x3 in no acute distress Extrem Other: Bilateral lower extremity examination shows good capillary refill, no skin lesions noted, normal sensation light touch Right knee examination shows a minimal effusion, palpable crepitus with range of motion, pain with range of motion, no instability Office Procedures Joint Injection/Aspiration Joint Injection/Aspiration Primary Site: right knee Prep: site was prepped using aseptic technique Injected: 40 mg of, DepoMedrol and 1% plain lidocaine Procedure: The patient tolerated the procedure well Coding - Large joint Procedure code (CPT) selection complete Results Reviewed Results Reviewed: X-rays of the patient's right knee taken previously show joint space narrowing, subchondral sclerosis, no acute bony abnormalities Assessment & Plan Assessment & Plan (1) Arthritis of right knee: Code(s): M17.11 - Unilateral primary osteoarthritis, right knee Category: Medical (2) Right knee pain: Code(s): M25.561 - Pain in right knee Plan Ms. Willis presents with right knee pain due to degenerative joint disease. The risks and benefits of a right knee cortisone injection were discussed at [facility] with the patient. The patient wished to proceed. She tolerated the injection well. She will continue with her home exercise program. She will follow up with me on an as-needed basis should her symptoms not plateau at an unacceptable level over the next few months. Feel free to call me at any time should questions regarding her orthopedic management arise. I spent 20 minutes in reviewing the patient's records and imaging studies, seeing the patient and documenting in the medical record. Orders: Orders AMB Joint Injection/Aspiration Today M17.11 - Unilateral primary osteoarthritis, right knee Coding Level of Care Code Est Pt Level 3 (36558) Diagnoses Arthritis of right knee M17.11 Right knee pain M25.561 CPT Codes Coding - Large joint: 89407 - Large joint ([id number])
[2023-11-25 13:40] VITALS: BMI 30.1
== END 2023-11-25 14:06 | disposition home or self-care (01) ==
PROVIDERS: PCP Nurse Practitioner Primary Care; Visit Provider Orthopaedic Surgery
DX: M17.11 Unilateral primary osteoarthritis, right knee (principal); M25.561 Pain in right knee
CPT/HCPCS: 20610; 99213

== ENCOUNTER 2023-12-05 06:59 | Inpatient (IN) | payer OTHER, SELFPAY ==
[2023-12-05] VITALS (9 sets, daily range): BP systolic 95–136; BP diastolic 41–77; PULSE 78–99; RESP 16–22; TEMP 36.1–37; O2SAT 97–100; BMI 31.2; BMI 29.4
--- NOTE | ~2023-12-05 | XR_ITS ---
EXAMINATION: X-ray right forearm. X-ray of the right hand and wrist CLINICAL INFORMATION: Overlying cast bite with cellulitis. COMPARISON: X-ray of the right hand September 2023 TECHNIQUE: 2 views of the right forearm and 4 views of right hand and wrist. FINDINGS: Right forearm: Question mild generalized edema within the subcutaneous soft tissues. No gas or foreign body. Bone normal. Right elbow unremarkable. Right hand and wrist: Question mild generalized soft tissue swelling versus normal variation. No soft tissue gas. Bone and joints unremarkable. XR/XR hand wrist RT IMPRESSION: 1. Question mild generalized soft tissue swelling throughout the forearm hand and wrist region. No soft tissue gas or foreign body. 2. No osseous abnormality of the right forearm, right hand and wrist. Electronically signed by: Barrett Pearson MD 12/05/2023 08:20 AM EDT
--- NOTE | ~2023-12-05 | XR_ITS ---
EXAMINATION: X-ray right forearm. X-ray of the right hand and wrist CLINICAL INFORMATION: Overlying cast bite with cellulitis. COMPARISON: X-ray of the right hand September 2023 TECHNIQUE: 2 views of the right forearm and 4 views of right hand and wrist. FINDINGS: Right forearm: Question mild generalized edema within the subcutaneous soft tissues. No gas or foreign body. Bone normal. Right elbow unremarkable. Right hand and wrist: Question mild generalized soft tissue swelling versus normal variation. No soft tissue gas. Bone and joints unremarkable. XR/XR forearm RT 2V IMPRESSION: 1. Question mild generalized soft tissue swelling throughout the forearm hand and wrist region. No soft tissue gas or foreign body. 2. No osseous abnormality of the right forearm, right hand and wrist. Electronically signed by: Barrett Pearson MD 12/05/2023 08:20 AM EDT
--- NOTE | 2023-12-05 07:18 | ED.ANIMALBIT ---
HPI - Animal Bite General Chief Complaint: Animal Bite Stated Complaint: rt hand cat bite Time Seen by Provider: 12/05/23 07:02 Source: patient Mode of arrival: ambulatory Limitations: no limitations History of Present Illness ED Provider: CELESTE KENNEY PA-C HPI narrative: 63 year old left-hand dominant female with pmhx significant for T2DM, CKD, HTN, CHF, anemia, COPD, current tobacco smoker, IBS, GERD, chronic hyponatremia presents to the ED today for evaluation of multiple cat bites to right hand/wrist x3 days. Reports the bites sustained are from her two kittens at home that are not yet fully vaccinated. Admits to increased redness/swelling and pain to her right hand with difficulty making a fist. Reports purulent drainage from one of the puncture sites. She is not aware of last tetanus vaccination. Denies fever, chills, headache, numbness/tingling/weakness of the RUE. Related Data Home Medications ?Medication ?Instructions ?Recorded ?Confirmed atorvastatin 40 mg tablet 1 tab PO BEDTIME 01/12/20 12/05/23 calcium carbonate 600 mg-vitamin 1 tab PO BID 01/12/20 12/05/23 D3 10 mcg (400 unit) tablet cetirizine 10 mg tablet 1 tab PO QAM 01/12/20 12/05/23 oxcarbazepine 150 mg tablet 1 tab PO BID PRN Restless Leg(S) 01/12/20 12/05/23 sertraline 50 mg tablet 50 mg PO DAILY 08/20/20 12/05/23 albuterol sulfate 90 mcg/actuation 2 puff PO QID PRN Wheezing 02/18/21 12/05/23 aerosol inhaler fluticasone propionate 110 2 puff inhalation BID 02/18/21 12/05/23 mcg/actuation HFA aerosol inhaler (Flovent HFA) furosemide 40 mg tablet 1.5 tab PO QAM 02/18/21 12/05/23 insulin glargine 100 unit/mL (3 12 unit subcut BEDTIME 02/18/21 12/05/23 mL) subcutaneous pen (Lantus Solostar U-100 Insulin) amlodipine 2.5 mg tablet 2.5 mg PO QPM 09/19/21 12/05/23 ferrous sulfate 325 mg (65 mg 325 mg PO DAILY 09/19/21 12/05/23 iron) tablet (FeroSul) olmesartan 40 mg tablet 40 mg PO DAILY 09/19/21 12/05/23 topiramate 100 mg tablet 100 mg PO BID 09/19/21 12/05/23 folic acid 1 mg tablet 1 mg PO DAILY 12/05/23 12/05/23 imipramine HCl 25 mg tablet 50 mg PO BEDTIME PRN Constipation 12/05/23 12/05/23 omeprazole 20 mg capsule,delayed 20 mg PO DAILY@0630 12/05/23 12/05/23 release Previous Rx's ?Medication ?Instructions ?Recorded sitagliptin phosphate 100 mg 100 mg PO DAILY 30 days #30 tabs 08/15/21 tablet (Januvia) amoxicillin 875 mg-potassium 1 tab PO BID 7 days #14 tabs 10/24/23 clavulanate 125 mg tablet bacitracin 500 unit/gram topical 1 appl topical TID 7 days #144 ea 10/24/23 packet sennosides 8.6 mg tablet (Senna 17.2 mg (2 x 8.6 mg) PO BEDTIME 11/03/23 Laxative) #60 tabs Allergies Allergy/AdvReac Type Severity Reaction Status Date / Time hydrocodone [From Vicodin] Allergy Mild ITCHING Verified 12/05/23 07:08 SHANAE Inhibitors Allergy Unknown UNKNOWN Verified 12/05/23 07:08 [SHANAE INHIBITORS] ENVIROMENTAL Allergy Mild HAYFEVER Uncoded 12/05/23 07:08 lysol wipes Allergy Mild Hives Uncoded 12/05/23 07:08 [place] Allergy Unknown NEPHROPATHY Uncoded 12/05/23 07:08 Review of Systems Review of Systems: Constitutional: No fever, chills, fatigue, night sweats, weight changes ENT/Mouth: No ear pain, hearing loss, nasal congestion, sinus pain, rhinorrhea, sore throat Eyes: No eye pain, swelling, redness, vision changes, discharge Cardio: No chest pain, palpitations, [place], orthopnea, peripheral edema Pulm: No SOB, cough, sputum, wheezing, dyspnea, hemoptysis GI: No nausea, vomiting, hematemesis, abdominal pain, diarrhea, constipation, hematochezia, melena : No irregular bleeding, dysuria, frequency, urgency, hesitancy, hematuria, flank pain, urinary flow changes, urinary incontinence or retention MSK: No back pain, neck pain, joint pain, myalgias, +redness/swelling/pain to right hand/wrist Skin: No lesions, rashes Neuro: No weakness, numbness, paresthesias, LOC, dizziness, headache Psych: No anxiety/panic, depression, SI/HI, AH/VH All other systems reviewed and are negative. [facility] Past Medical History Attestation statement: The following information was validated with the patient. Source: old records reviewed and nursing notes reviewed Medical History Seizures Syncope History of TIA (transient ischemic attack) CHF (congestive heart failure) Essential hypertension Hyperlipidemia Type 2 diabetes mellitus with chronic kidney disease Chronic kidney disease, stage 3 Anemia COPD (chronic obstructive pulmonary disease) Asthma JANET (obstructive sleep apnea) Nicotine dependence, cigarettes, uncomplicated Restless leg syndrome Obesity Tubular adenoma of colon IBS (irritable bowel syndrome) Constipation Primary osteoarthritis of right knee Osteoarthritis Right knee pain History of migraine Surgical History History of appendectomy History of cholecystectomy History of esophagogastroduodenoscopy (EGD) History of colonoscopy History of total left knee replacement (TKR) History of arthroscopy of left knee History of arthroscopy of right knee History of elbow surgery History of surgery on wrist History of carpal tunnel release of both wrists History of lumpectomy of right breast Family History Family History Father Hx of gout Diabetes Mother Diabetes Daughter Pre-diabetes Brother Cancer Social History Social History Household Members: None Housing: Apartment Do you presently have visiting nurse or other home services: No Alcohol intake: never Patient Tobacco Use Status: Current everyday Tobacco user Tobacco use type: Cigarette Cigarette Packs Per Day: 1 Cigarettes Per Day: 20.0 Years Smoked: onset 16yo, 3ppd x 47yrs, now 2ppd, >100pyh Second Hand Smoke Exposure: No Advance Directives Date on File: 02/18/21 service: No Current occupational status: disabled Current occupation: left hand dominant Physical Exam ED Vital Signs: Vital Signs - 24 hr 12/05/23 07:07 12/05/23 10:11 Temperature 97.5 F 98 F Pulse Rate 99 90 Respiratory Rate 19 19 Blood Pressure 136/56 L 95/41 L Pulse Oximetry 100 97 BMI result Body Mass Index 31.2 Vitals stable, afebrile General: Well appearing, in no acute distress. Head: Normocephalic, atraumatic. Cardiac: Chest wall symmetric. RRR. Lungs: Normal respiratory effort without accessory muscle use. CTA bilaterally. Abdomen: Soft, non-tender, non-distended Ext: + 7 identifiable puncture wounds noted to right dorsal and radial aspects of hand/wrist with brown/ purulent drainage. no active bleeding. noted swelling and erythema extending from proximal wrist, distally into hand. no streaking. 2+ radial pulse intact. patient has difficulty flexing digits/ making a complete first and endorses pain with doing so. Neuro: AOx3. Normal speech. Ambulating with steady gait. Psych: Appropriate mood and affect. Responds appropriately to questions. Course Course Course Narrative: 917 -- CBC without leukocytosis or left shift. chronic normocytic anemia, stable when compared to priors. chemistry showing hyponatremia - chronic when compared to priors. Patient receiving 1L normal saline. Elevated inflammatory markers. Lactic WNL. I do not have concern for sepsis. Xray showing question mild generalized soft tissue swelling throughout the forearm, hand, wrist region. No soft tissue gas or foreign body. No osseous abnormality of the right forearm, hand or wrist. > patient treated with a dose of Unasyn, 1 L of IV fluids > tdap booster given. rabies series initiated. > I discussed case with ortho YUDITH Tim. Both he and Dr. Moreno have evaluated patient at bedside. Recommending admission to medicine for IV antibiotic treatment with re-evaluation in the morning for surgical wash out in the OR. This was discussed with patient who is agreeable. Patient to be NPO at midnight. 1016 -- I spoke with Dr. Byrnes from ID, given patient is immunocompromised. She is recommending discontinuing the Unasyn and adding Clindamycin 600 mg IV TID and Levaquin IV (renally dose adjusted- 500 mg initial, then 250 mg q24 hours) for broad spectrum coverage. This has been ordered by me. > I also received critical hemoglobin of 7 (drop from 7.3 this morning). After discussion with hospitalist Dr. Tang, I will place an order for 1 unit of PRBC. Patient is agreeable with this. She has required infusions in the past for anemia. She has provided informed consent. > Dr. Tang has accepted patient admission. He will place admission orders. Medications Administered Generic Name Dose Route Start Last Admin Trade Name Freq PRN Reason Stop Dose Admin Acetaminophen 650 mg 12/05/23 10:25 12/05/23 14:52 Acetaminophen 325 Mg Tablet PO 650 mg Q6H PRN Administration Pain, Mild (Pain Scale 1-3), fever or headache Bacitracin 1 appl 12/05/23 15:00 12/05/23 14:22 Bacitracin Oint 0.9 Gm Packet TOPICAL 1 appl TID INDU Administration Protocol Clindamycin Phosphate 600 mg in 50 mls @ 100 mls/hr 12/05/23 10:45 12/05/23 12:30 Cleocin IV Infused Q8H INDU Infusion Loratadine 10 mg 12/05/23 13:15 12/05/23 14:22 Loratadine 10 Mg Tablet PO 10 mg DAILY INDU Administration Discontinued Medications Generic Name Dose Route Start Last Admin Trade Name Freq PRN Reason Stop Dose Admin Acetaminophen 975 mg 12/05/23 07:37 12/05/23 08:02 Acetaminophen 325 Mg Tablet PO 12/05/23 07:38 975 mg ONCE ONE Administration Diphtheria/Tetanus/Acell Pertussis 0.5 ml 12/05/23 07:27 12/05/23 08:03 Diphth,Pertus(Acell),Tet Adult 0.5 Ml Syringe IM 12/05/23 07:28 0.5 ml .ONCE ONE Administration Ampicillin Sodium/Sulbactam 100 mls @ 200 mls/hr 12/05/23 07:29 12/05/23 11:43 Sodium 3 gm/ Sodium Chloride IV 12/05/23 07:58 Infused ONCE ONE Infusion Sodium Chloride 1,000 mls @ 999 mls/hr 12/05/23 07:30 12/05/23 11:43 Ns IV 12/05/23 08:30 Infused .Q1H1M INDU Infusion Sodium Chloride 100 mls @ 100 mls/hr 12/05/23 10:22 12/05/23 12:27 Ns IV 12/05/23 11:21 100 mls/hr ONCE ONE Administration Levofloxacin 500 mg in 100 mls @ 100 mls/hr 12/05/23 10:34 12/05/23 11:54 Levaquin IV 12/05/23 11:33 Infused ONCE ONE Infusion Medical Decision Making Medical Decision Making [facility] Narrative: 63 year old left-hand dominant female with pmhx significant for T2DM, CKD, HTN, CHF, anemia, COPD, current tobacco smoker, IBS, GERD, chronic hyponatremia presents to the ED today for evaluation of multiple cat bites to right hand/wrist x3 days. Vital signs stable. Afebrile. She is nontoxic appearing and in NAD. On exam of right upper extremity, there 7 identifiable puncture wounds noted to right dorsal and radial aspects of hand/wrist with brown/ purulent drainage. no active bleeding. noted swelling and erythema extending from proximal wrist, distally into hand. no streaking. 2+ radial pulse intact. patient has difficulty flexing digits/ making a complete first and endorses pain with doing so. Differential diagnosis includes animal bite, cellulitis, abscess, tenosynovitis. Lower suspicion for osteo, gangrene, septic joint, compartment syndrome, NV compromise or threat to limb. Basic labs, lactic acid, blood cultures, inflammatory markers, and XR ordered for further evaluation. Patient will be empirically treated with Unasyn. 1L of normal saline ordered. Tylenol for pain control. Patient will likely require admission to medicine for continued treatment with IV antibiotics. Differential Diagnosis Differential Diagnoses: The differential diagnosis associated with the presentation includes as above. Admission/Observation Consideration of admission/observation: Escalation of care including admission/observation considered Patient admitted to medicine for IV antibiotic treatment with plan for surgical wash-out in the OR tomorrow morning. Consult Healthcare Provider Management of the patient was discussed with: Hospitalist (Dr. Tang) and Picking Supervisor Ortho - Glenroy Meade ID - Dr. Byrnes Lab Data [facility] Lab Attestation statement: I reviewed the patient's lab results. as above 12/05/23 10:09 12/05/23 07:53 Labs: Lab Results 12/05/23 12/05/23 12/05/23 Range/Units 07:53 10:07 10:09 WBC 3.0 L 2.3 L (4.8-10.8) X10*3/uL RBC 2.64 L 2.51 L (4.20-5.50) X10*6/uL Hgb 7.3 L 7.0 L* (12.0-16.0) g/dl Hct 22.3 L 21.2 L (37.0-47.0) % MCV 84.5 85.3 (80.0-98.0) fL MCH 27.7 27.9 (27.0-33.0) pg MCHC 32.7 32.7 (31.0-35.0) g/dl RDW 15.2 15.3 (11.0-16.0) % Plt Count 158 L 151 L (160-400) X10*3/uL MPV 8.5 L 9.2 L (9.4-12.3) fL Immature Gran % (Auto) 0.7 H (0.0-0.4) % Neut % (Auto) 51.5 (45-73) % Lymph % (Auto) 36.5 (20-40) % Sebastian % (Auto) 10.6 (2-11) % Eos % (Auto) 0.0 (0-4) % Baso % (Auto) 0.7 (0-2) % Lymph # (Auto) 1.1 L (1.2-4.9) X10*3/uL Sebastian # (Auto) 0.3 (0.1-1.2) X10*3/uL Eos # (Auto) 0.0 (0.0-0.4) X10*3/uL Baso # (Auto) 0.0 (0.0-0.2) X10*3/uL Abs Immat Gran (auto) 0.02 (0.00-0.03) X10*3/uL Absolute Neuts (auto) 1.6 L (2.0-8.3) x10*3/uL Absolute Nucleated RBC 0.000 0.000 (0.0-0.012) X10*3/uL Nucleated RBC % (auto) 0.0 0.0 (0.0-0.2) /100WBC Neutrophils % (Manual) Cancelled 47 Band Neutrophils % Cancelled 1 L Lymphocytes % (Manual) Cancelled 46 H Atypical Lymphs % (Man) Cancelled Monocytes % (Manual) Cancelled 5 Eosinophils % (Manual) Cancelled Basophils % (Manual) Cancelled 1 Metamyelocytes % Cancelled Myelocytes % Cancelled Promyelocytes % Cancelled Blast Cells % (Manual) Cancelled Plasma Cell % (Manual) Cancelled Abs Neuts (Manual) Cancelled 1.1 L Lymphocytes # (Manual) Cancelled 1.1 L Atyp Lymphs # (Manual) Cancelled Monocytes # (Manual) Cancelled 0.1 Eosinophils # (Manual) Cancelled Basophils # (Manual) Cancelled Metamyelocytes # Cancelled Myelocytes # Cancelled Promyelocytes # Cancelled Blast Cells # Cancelled Plasma Cell # (Manual) Cancelled Nucleated RBCs Cancelled Differential Comment Cancelled Hypersegmented Neuts Cancelled Smudge Cells Cancelled Toxic Granulation Cancelled Toxic Vacuolation Cancelled Dohle Bodies Cancelled Sachin Rods Cancelled WBC Morphology Comment Cancelled Platelet Estimate Cancelled NORMAL Large Platelets Cancelled Giant Platelets Cancelled Plt Morphology Comment Cancelled NORMAL RBC Morphology Cancelled NOTED Polychromasia Cancelled Hypochromasia Cancelled Basophilic Stippling Cancelled Microcytosis Cancelled Macrocytosis Cancelled Spherocytes Cancelled 3+ (>5) Pappenheimer Bodies Cancelled Sickle Cells Cancelled Target Cells Cancelled Tear Drop Cells Cancelled Ovalocytes Cancelled Stomatocytes Cancelled [place] Bodies Cancelled [place] Cells Cancelled 1+ (0-2) Acanthocytes (Spur) Cancelled Rouleaux Cancelled Schistocytes Cancelled ESR 123 H (0-20) MM/HR Absolute Retic Cancelled 0.020 L Percent Retic Cancelled 0.8 Immature Retic Fraction Cancelled 14.9 Retic Hgb Equivalent Cancelled 19.2 L Sodium 129 L (135-145) mmol/L Potassium 3.8 (3.3-5.1) mmol/L Chloride 99 (96-108) mmol/L Carbon Dioxide 22 (22-29) mmol/L Anion Gap 12 (12-20) BUN 24 H (9-16) mg/dL Creatinine 1.25 (0.5-1.4) mg/dL Estim Creat Clear Calc 37.5 Estimated GFR 43 Random Glucose 107 (60-115) mg/dL Lactic Acid 1.0 (0.5-2.0) mmol/L Calcium 9.2 (8.4-10.2) mg/dL Total Bilirubin 0.2 (0.0-1.0) mg/dL Direct Bilirubin < 0.2 (0.0-0.5) mg/dL AST 19 (5-31) U/L ALT 13 (0-31) U/L Alkaline Phosphatase 96 (39-117) U/L Lactate Dehydrogenase 174 (122-220) U/L C-Reactive Protein 12.16 H (< or = 0.50) mg/dL Total Protein 6.9 (6.5-8.0) g/dL Albumin 3.2 L (3.5-5.0) g/dL Blood Type A Positive Antibody Screen NEGATIVE Crossmatch See Detail Independent Interpretation I performed an independent interpretation of an: Plain X-Ray Interpretation: XR right hand/wrist/forearm w/o soft tissue gas, agree with radiologist's interpretation. Radiology Impression Discussion of test interpretation with radiology: I have reviewed the radiologist's reading. Radiologist Impression: EXAMINATION: X-ray right forearm. X-ray of the right hand and wrist CLINICAL INFORMATION: Overlying cast bite with cellulitis. COMPARISON: X-ray of the right hand September 2023 TECHNIQUE: 2 views of the right forearm and 4 views of right hand and wrist. FINDINGS: Right forearm: Question mild generalized edema within the subcutaneous soft tissues. No gas or foreign body. Bone normal. Right elbow unremarkable. Right hand and wrist: Question mild generalized soft tissue swelling versus normal variation. No soft tissue gas. Bone and joints unremarkable. XR/XR hand wrist RT IMPRESSION: 1. Question mild generalized soft tissue swelling throughout the forearm hand and wrist region. No soft tissue gas or foreign body. 2. No osseous abnormality of the right forearm, right hand and wrist. Electronically signed by: Barrett Pearson MD 12/05/2023 08:20 AM EDT External Record Review External record reviewed: Inpatient record, Office record, Outpatient record, Prior outpatient labs, Prior outpatient radiology, Primary care record and Outside ED record Prescription Management I considered prescription management with: Pain Medication and Antibiotic Chronic Conditions Patient?s care impacted by: Diabetes and Other (CKD) Social Determinants Patient?s care significantly limited by Social Determinants of Health including: Other Social Determinant of Health Critical Care Time Critical Care Time Critical Care Time: Yes Total Critical Care Time: 49 Attestation: Critical care time in the amount of 49 minutes has been provided to the patient in terms of direct patient care, frequent reevaluation, consultation with ortho, hospitalist, and ID, review and interpretation of medical data and results, and management of potentially life-threatening conditions. This is all outside of any medical procedures. Discharge Plan Discharge Clinical Impression: Cat bite of forearm, Anemia, Cellulitis, Hyponatremia Patient Disposition: Admitted As Inpatient Interventions: Admission Worksheet (ED) Last Done: 12/05/23 12:47 Discharge Date/Time: 12/05/23 13:43
[2023-12-05 08:02] LABS: Basophils Percent Auto 0.7 % (0-2); Hematocrit 22.3 % (37.0-47.0); Hemoglobin 7.3 g/dl (12.0-16.0); Imm Gran Abs Auto 0.02 X10*3/uL (0.00-0.03); Imm Gran Pct Auto 0.7 % (0.0-0.4); Lymphocytes Absolute Auto 1.1 X10*3/uL (1.2-4.9); Lymphocytes Percent Auto 36.5 % (20-40); MANUAL DIFF FLAG NO; Mean Corpuscular HGB Conc 32.7 g/dl (31.0-35.0); Mean Corpuscular Hemoglobin 27.7 pg (27.0-33.0); Mean Corpuscular Volume 84.5 fL (80.0-98.0); Mean Platelet Volume 8.5 fL (9.4-12.3); Monocytes Absolute Auto 0.3 X10*3/uL (0.1-1.2); Monocytes Percent Auto 10.6 % (2-11); Neutrophils Absolute Auto 1.6 x10*3/uL (2.0-8.3); Neutrophils Percent Auto 51.5 % (45-73); Platelet Count 158 X10*3/uL (160-400); Red Blood Count 2.64 X10*6/uL (4.20-5.50); Red Cell Distribution Width 15.2 % (11.0-16.0)
[2023-12-05] MEDS: Acetaminophen 325 MG TABLET 975 MG PO (08:02)
[2023-12-05] MEDS: Ampicillin Sodium/Sulbactam Na 3 GM in 0.9 % Sodium Chloride 100 ML IV (08:03)
[2023-12-05] MEDS: Diphth,Pertus(ACell),Tet Adult 0.5 ML SYRINGE IM (08:03)
[2023-12-05] MEDS: 0.9 % Sodium Chloride 1,000 ML 999 ML IV (08:04)
[2023-12-05 08:21] LABS: Alanine Aminotransferase 13 U/L (0-31); Albumin Level 3.2 g/dL (3.5-5.0); Alkaline Phosphatase 96 U/L (39-117); Anion Gap 12 (12-20); Aspartate Amino Transferase 19 U/L (5-31); Bilirubin Total 0.2 mg/dL (0.0-1.0); Blood Urea Nitrogen 24 mg/dL (9-16); C Reactive Protein 12.16 mg/dL (< or = 0.50); Calcium 9.2 mg/dL (8.4-10.2); Carbon Dioxide 22 mmol/L (22-29); Chloride 99 mmol/L (96-108); Creatinine Clr Calc Pharmacy 37.5; Estimated Glomerular Filt Rate 43; Glucose Random 107 mg/dL (60-115); Potassium 3.8 mmol/L (3.3-5.1); Sodium 129 mmol/L (135-145); Total Protein 6.9 g/dL (6.5-8.0)
[2023-12-05 09:24] LABS: Erythrocyte Sedimentation Rate 123 MM/HR (0-20)
[2023-12-05 10:16] LABS: Hematocrit 21.2 % (37.0-47.0)
--- NOTE | 2023-12-05 10:33 | PM.IMHP ---
History of Present Illness Date of Service: 12/05/23 Attending physician on admission: Ester Tang Chief Complaint: anemia 63 yo female multiple comorbidities including diabetes, CKD, asthma, CHF, hypertension, TIA history, JANET, obesity -came c/o cat bite and w/ right hand pain/ swelling/ redness s/p cat bite 3 days duration. purulent/ brown drainage from the puncture wounds. she admits to pain on flexion of all digits and cannot fully make a fist. her cat(she got it from her niece)-not fully vaccinated. denies any fevers or chills. labs-No white count. elevated ESR/ CRP. lactin wnl. blood cultures sent. XR showing question mild generalized soft tissue swelling throughout the wrist forearm/hand/wrist region. as per ED: she's been treated with a dose of unasyn. ortho Dr. Moreno saw the patient at bedside, recommending admission to medicine for IV antibiotics with plan for OR wash out tomorrow morning. patient to be NPO at midnight.further ED d/w with iD-patient is switched to levquin/clinda . anemia -unclear wtiology, denies any hayley bleeding or melena hx -moslt h/h is 8 range from 2020, outpatient hematology ?AOCD considering ckd. might also have component of dilaution due to fluids , ed added -sent type and cross , 1 prbc ordered. admission requested for -cellulitis ,anemia , possible need for i&d. Review of Systems Review of Systems: as above Yes all other systems are reviewed and are negative [facility] Medical History Seizures Syncope History of TIA (transient ischemic attack) CHF (congestive heart failure) Essential hypertension Hyperlipidemia Type 2 diabetes mellitus with chronic kidney disease Chronic kidney disease, stage 3 Anemia COPD (chronic obstructive pulmonary disease) Asthma JANET (obstructive sleep apnea) Nicotine dependence, cigarettes, uncomplicated Restless leg syndrome Obesity Tubular adenoma of colon IBS (irritable bowel syndrome) Constipation Primary osteoarthritis of right knee Osteoarthritis Right knee pain History of migraine Family History Father Hx of gout Diabetes Mother Diabetes Daughter Pre-diabetes Brother Cancer Surgical History History of appendectomy History of cholecystectomy History of esophagogastroduodenoscopy (EGD) History of colonoscopy History of total left knee replacement (TKR) History of arthroscopy of left knee History of arthroscopy of right knee History of elbow surgery History of surgery on wrist History of carpal tunnel release of both wrists History of lumpectomy of right breast Social History Household Members: None Housing: Apartment Alcohol intake: never Patient Tobacco Use Status: Former Tobacco user Tobacco use type: Cigarette Cigarette Packs Per Day: 2 Years Smoked: onset 16yo, 3ppd x 47yrs, now 2ppd, >100pyh Smoked in Last 30 Days: Yes Use of substances other than those prescribed or required for medical reasons: No Advance Directives: Yes Advance Directives on File: Yes Advance Directives Date on File: 02/18/21 Do you have a plan to hurt others: No Plan Nutrition Risks: No Nutritional Risk service: No Current occupational status: disabled Current occupation: left hand dominant Meds Allergies Allergy/AdvReac Type Severity Reaction Status Date / Time hydrocodone [From Vicodin] Allergy Mild ITCHING Verified 12/05/23 07:08 SHANAE Inhibitors Allergy Unknown UNKNOWN Verified 12/05/23 07:08 [SHANAE INHIBITORS] ENVIROMENTAL Allergy Mild HAYFEVER Uncoded 12/05/23 07:08 lysol wipes Allergy Mild Hives Uncoded 12/05/23 07:08 [place] Allergy Unknown NEPHROPATHY Uncoded 12/05/23 07:08 Active Medications: Current Medications Acetaminophen (Acetaminophen 325 Mg Tablet) 650 mg PO Q6H PRN PRN Reason: Pain, Mild (Pain Scale 1-3), fever or headache Calcium Carbonate (Calcium Carbonate 750 Mg Tab.Chew) 750 mg PO Q4H PRN PRN Reason: Heartburn Sodium Chloride (Ns) 100 mls @ 100 mls/hr IV ONCE ONE Stop: 12/05/23 11:21 Magnesium Hydroxide (Milk Of Magnesia 30 Ml Oral.Susp) 30 ml PO DAILY PRN PRN Reason: Constipation Melatonin (Melatonin 3 Mg Tablet) 6 mg PO BEDTIME PRN PRN Reason: Insomnia Sodium Chloride (0.9 % Sodium Chloride Flush 3 Ml Syringe) 3 ml IVFLUSH QSHIFT [facility] Home Medications ?Medication ?Instructions ?Recorded ?Confirmed ?Last Taken ?Type atorvastatin 40 mg tablet 1 tab PO BEDTIME 01/12/20 12/05/23 12/05/23 History calcium carbonate 600 mg-vitamin 1 tab PO BID 01/12/20 12/05/23 12/05/23 History D3 10 mcg (400 unit) tablet cetirizine 10 mg tablet 1 tab PO QAM 01/12/20 12/05/23 12/05/23 History oxcarbazepine 150 mg tablet 1 tab PO BID PRN Restless Leg(S) 01/12/20 12/05/23 12/05/23 History sertraline 50 mg tablet 50 mg PO DAILY 08/20/20 12/05/23 12/05/23 History albuterol sulfate 90 mcg/actuation 2 puff PO QID PRN Wheezing 02/18/21 12/05/23 12/05/23 History aerosol inhaler fluticasone propionate 110 2 puff inhalation BID 02/18/21 12/05/23 12/05/23 History mcg/actuation HFA aerosol inhaler (Flovent HFA) furosemide 40 mg tablet 1.5 tab PO QAM 02/18/21 12/05/23 12/05/23 History insulin glargine 100 unit/mL (3 12 unit subcut BEDTIME 02/18/21 12/05/23 12/05/23 History mL) subcutaneous pen (Lantus Solostar U-100 Insulin) amlodipine 2.5 mg tablet 2.5 mg PO QPM 09/19/21 12/05/23 12/05/23 History ferrous sulfate 325 mg (65 mg 325 mg PO DAILY 09/19/21 12/05/23 12/05/23 History iron) tablet (FeroSul) olmesartan 40 mg tablet 40 mg PO DAILY 09/19/21 12/05/23 12/05/23 History topiramate 100 mg tablet 100 mg PO BID 09/19/21 12/05/23 12/05/23 History folic acid 1 mg tablet 1 mg PO DAILY 12/05/23 12/05/23 12/05/23 History imipramine HCl 25 mg tablet 50 mg PO BEDTIME PRN Constipation 12/05/23 12/05/23 12/05/23 History omeprazole 20 mg capsule,delayed 20 mg PO DAILY@0630 12/05/23 12/05/23 12/05/23 History release Physical Exam Vital Signs and Narrative: Vital Signs: Last Vital Signs Temp 98 F 12/05/23 10:11 Pulse 90 12/05/23 10:11 Resp 19 12/05/23 10:11 BP 95/41 L 12/05/23 10:11 Pulse Ox 97 12/05/23 10:11 BMI result Body Mass Index 31.2 Appearance: Alert.? Oriented X3. cvs: rrr, [id number] . res: clear to auscultation ,no rhonchii or wheezing abd: no rebound or guarding ,nt, bs present. ext pulses present , no cyanosis . MS : right hand /wrist -erythema/sweling, some drainge , can wiggle fingers but unable to make fist. neuro: axo3 , nonfocal. Results Labs 12/05/23 10:09 12/05/23 07:53 Labs: Laboratory Results - last 24 hr 12/05/23 07:53 MCV 84.5 MCH 27.7 MCHC 32.7 RDW 15.2 Plt Count 158 L MPV 8.5 L Immature Gran % (Auto) 0.7 H Neut % (Auto) 51.5 Lymph % (Auto) 36.5 [facility] % (Auto) 10.6 Eos % (Auto) 0.0 Baso % (Auto) 0.7 Lymph # (Auto) 1.[address] [facility] # (Auto) 0.3 Eos # (Auto) 0.0 Baso # (Auto) 0.0 Abs Immat Gran (auto) 0.02 Absolute Neuts (auto) 1.6 L Absolute Nucleated RBC 0.000 Nucleated RBC % (auto) 0.0 ESR 123 H Anion Gap 12 Estim Creat Clear Calc 37.5 Estimated GFR 43 Random Glucose 107 Lactic Acid 1.0 Calcium 9.2 Total Bilirubin 0.2 AST 19 ALT 13 Alkaline Phosphatase 96 C-Reactive Protein 12.16 H Total Protein 6.9 Albumin 3.2 L Imaging Radiologist's Impressions: Impressions Forearm X-Ray 12/05/23 07:25 IMPRESSION: 1. Question mild generalized soft tissue swelling throughout the forearm hand and wrist region. No soft tissue gas or foreign body. 2. No osseous abnormality of the right forearm, right hand and wrist. Electronically signed by: Barrett Pearson MD 12/05/2023 08:20 AM EDT RP Hand/Wrist X-Ray 12/05/23 07:25 IMPRESSION: 1. Question mild generalized soft tissue swelling throughout the forearm hand and wrist region. No soft tissue gas or foreign body. 2. No osseous abnormality of the right forearm, right hand and wrist. Electronically signed by: Barrett Pearson MD 12/05/2023 08:20 AM EDT RP Assessment and Plan (1) Cat bite of forearm: Qualifiers: Encounter type: initial encounter Laterality: right Qualified Code(s): S51.851A - Open bite of right forearm, initial encounter; W55.01XA - Bitten by cat, initial encounter Status: Acute Plan 63 yo female for cat bite + cellulitis requiring IV abx. here w/ right hand pain/ swelling/ redness s/p cat bite 3 days ago. right hand /foream area cellulitis associtedwith cat bite: No fever, tachycardia /tachypnea secondary to anemia and pain. wbc trending down dilutional( also chronic flactuated between 3 to 6 range) elevated esr/crp, lactic acid normal blood cultures sent no sepsis xray- mild generalized soft tissue swelling throughout the wrist forearm/hand/wrist region. plan: started on levaquin/clindamycin (intiated on 12/05/23), Id eval, surgery -in am evaluation in the morning for surgical wash out in the OR. keep npo past midnight dm without hyperglycemia : fs with coverage hab1c levels anemia normocytic : denies any gross bleed or melena anemia workup, fobt type and screen, 1 prbc added by ed. less likely hemolysis -retic count boderline low, ldh normal,haptoglobin levels pendin peripheral smear -no much schicytocytes ,some spherocytes -prelim. possible hypovolemic hyponatremia urine and serum osmoloarities both low urine sodium 35 patient was given ivf in ed sodium repeat 129. Asthma : mild intermittent continue prn albuterol. HTN- continue amlodipine HLD- continue statin ckd 3: stable. seizure hx : on topiramate . dvt prophylax : mech devices due to anemia . patient will benefit from 2 midnight stays- considering cellulitis-and IV antibiotics, might need OR washout, renal function electrolyte monitoring for hyponatremia, further anemia workup and possible transfusion and H&H monitoring. Above management discussed with the patient detail length she understand in agreement with the above plan time spent 70 minute.patient is full code. Quality Stroke Does the patient have a stroke diagnosis?: No VTE Prior VTE?: No VTE Risk Level:: Medical - moderate - high VTE Device Contraindication: N/A - Device Ordered VTE Drug Contraindication: N/A - Med Ordered
[2023-12-05 10:49] LABS: Immature Retic Fraction 14.9 % (3.0-15.9); Retic HGB Equivalent 19.2 pg (30.0-35.0); Reticulocyte Percent 0.8 % (0.5-1.8)
[2023-12-05] MEDS: levoFLOXacin/D5W 500 MG/100 ML PIGGYBACK 100 MG IV (10:52)
[2023-12-05 11:00] LABS: Mean Corpuscular HGB Conc 32.7 g/dl (31.0-35.0); Mean Corpuscular Hemoglobin 27.9 pg (27.0-33.0); Mean Corpuscular Volume 85.3 fL (80.0-98.0); Red Blood Count 2.51 X10*6/uL (4.20-5.50); Red Cell Distribution Width 15.3 % (11.0-16.0); White Blood Count 2.3 X10*3/uL (4.8-10.8)
[2023-12-05 11:01] LABS: Bilirubin Direct < 0.2 mg/dL (0.0-0.5); Lactate Dehydrogenase 174 U/L (122-220)
[2023-12-05 11:01] LABS: Mean Platelet Volume 9.2 fL (9.4-12.3); Platelet Count 151 X10*3/uL (160-400)
[2023-12-05 11:43] LABS: Band Neutrophils Percent 1 % (3-5); Basophils Percent Manual 1 % (0-2); Lymphocytes Absolute Manual 1.1 X10*3/uL (1.2-4.9); Lymphocytes Percent Manual 46 % (20-40); Monocytes Absolute Manual 0.1 X10*3/uL (0.1-1.2); Monocytes Percent Manual 5 % (2-11); Neutrophils Absolute Manual 1.1 X10*3/uL (2.0-8.3); Neutrophils Percent Manual 47 % (45-73)
[2023-12-05 11:46] LABS: Burr Cells 1+ (0-2) /OIF; Platelet Estimate NORMAL (NORMAL); Platelet Morphology Comment NORMAL; RBC Morphology NOTED; Spherocytes 3+ (>5) /OIF
[2023-12-05 11:50] LABS: Haptoglobin 268 mg/dL (63-273)
[2023-12-05] MEDS: Clindamycin Phosphate/D5W 600 MG/50 ML PIGGYBACK 100 MG IV ×2 (11:54→18:16)
--- NOTE | 2023-12-05 11:56 | PC.NURSE ---
Assumed care of this patient at 1100, IV abx delayed d/t difficulty w/ IV access, previous RN unable to get second line w/ US assistance. Blood consent to be signed with provider, 1 unit PRBCs ordered. Patient otherwise resting quietly, will obtain stool sample when patient able to provide.
--- NOTE | 2023-12-05 12:11 | PHA.MEDREC ---
Pharmacy Consult ? Medication Reconciliation Pharmacy has completed the medication reconciliation. Spoke with patient. Patient was not the best historian. Also stated multiple times throughout interview that she takes all my medications given in my med box . She also stated she took every medication in her box prior to coming in this morning. Patient says she is no longer on insulin and that it was replaced with another injection however claims show no other injectables for diabetes and patient could not recall the medication. She also stated she is no longer on ASA, Vitamin B12 and hydrocortisone cream. She also confirmed she only takes impramine as needed for constipation and oxcarbazepine as needed for restless leg. Patient did confirm to have started Augmentin on 12/01.
[2023-12-05] MEDS: Loratadine 10 MG TABLET PO (14:22)
[2023-12-05] MEDS: Bacitracin Oint 0.9 GM PACKET 1 APPL TOPICAL ×2 (14:22→20:24)
[2023-12-05] MEDS: Acetaminophen 325 MG TABLET 650 MG PO (14:52)
[2023-12-05] MEDS: 0.9 % Sodium Chloride Flush 3 ML SYRINGE IVFLUSH ×2 (16:23→23:56)
[2023-12-05 16:36] LABS: Glucose, Whole Blood 110 mg/dL (60-115)
[2023-12-05] MEDS: Rabies Immune Globulin/PF 1,500 UNIT/5 ML VIAL 1276 UNIT IM (17:53)
[2023-12-05] MEDS: oxyCODONE HCl Immed Release 5 MG TABLET PO (18:16)
[2023-12-05 18:22] LABS: Hematocrit 25.7 % (37.0-47.0); Hemoglobin 8.6 g/dl (12.0-16.0)
[2023-12-05] MEDS: Fluticasone Propionate 250 MCG BLST.W.DEV 1 PUFF INHALE (19:44)
[2023-12-05] MEDS: Sennosides 8.6 MG TABLET 17.2 MG PO (20:06)
[2023-12-05] MEDS: Atorvastatin Calcium 40 MG TABLET PO (20:06)
[2023-12-05] MEDS: OXcarbazepine 150 MG TABLET PO (20:06)
[2023-12-05] MEDS: Melatonin 3 MG TABLET 6 MG PO (20:06)
[2023-12-05] MEDS: Calcium + Vitamin D 250 MG TABLET PO (20:06)
[2023-12-05] MEDS: amLODIPine Besylate 2.5 MG TABLET PO (20:07)
[2023-12-05] MEDS: Topiramate 100 MG TABLET PO (20:07)
[2023-12-05 20:22] LABS: Glucose, Whole Blood 106 mg/dL (60-115)
[2023-12-05] MEDS: Insulin Glargine,Hum.rec.anlog 100 UNIT/ML 10 ML VIAL 12 UNIT SUBCUT (20:22)
--- NOTE | 2023-12-05 22:30 | W.PM.IDCN ---
History of Present Illness Data of Consult Service Date: 12/05/23 Primary Care Provider: April Dave NP HPI Reason for consult: right hand cat bite She presents with right hand cat bite and redness Nearly a week ago she was bit by cat and saw Urgent Care. She was separting male from female cat. Review of Systems Review of Systems: Yes all other systems are reviewed and are negative PMFSH Past Medical History Medical History Seizures Syncope History of TIA (transient ischemic attack) CHF (congestive heart failure) Essential hypertension Hyperlipidemia Type 2 diabetes mellitus with chronic kidney disease Chronic kidney disease, stage 3 Anemia COPD (chronic obstructive pulmonary disease) Asthma JANET (obstructive sleep apnea) Nicotine dependence, cigarettes, uncomplicated Restless leg syndrome Obesity Tubular adenoma of colon IBS (irritable bowel syndrome) Constipation Primary osteoarthritis of right knee Osteoarthritis Right knee pain History of migraine Family History Family History Father Hx of gout Diabetes Mother Diabetes Daughter Pre-diabetes Brother Cancer Family history: reviewed and not pertinent Surgical History Surgical History History of appendectomy History of cholecystectomy History of esophagogastroduodenoscopy (EGD) History of colonoscopy History of total left knee replacement (TKR) History of arthroscopy of left knee History of arthroscopy of right knee History of elbow surgery History of surgery on wrist History of carpal tunnel release of both wrists History of lumpectomy of right breast Social History Social History Household Members: None Housing: Apartment Do you presently have visiting nurse or other home services: Yes Alcohol intake: never Patient Tobacco Use Status: Current everyday Tobacco user Tobacco use type: Cigarette Cigarette Packs Per Day: 1 Cigarettes Per Day: 20.0 Years Smoked: onset 16yo, 3ppd x 47yrs, now 2ppd, >100pyh e-Cigarette/Vaping Use: Never Used Second Hand Smoke Exposure: No Advance Directives Date on File: 02/18/21 service: No Current occupational status: disabled Current occupation: left hand dominant Meds Allergies Allergy/AdvReac Type Severity Reaction Status Date / Time hydrocodone [From Vicodin] Allergy Mild ITCHING Verified 02/20/24 19:46 SHANAE Inhibitors Allergy Unknown UNKNOWN Verified 02/20/24 19:46 [SHANAE INHIBITORS] ENVIROMENTAL Allergy Mild HAYFEVER Uncoded 02/20/24 19:46 lysol wipes Allergy Mild Hives Uncoded 02/20/24 19:46 [place] Allergy Unknown NEPHROPATHY Uncoded 02/20/24 19:46 Active Medications: Current Medications Acetaminophen (Acetaminophen 325 Mg Tablet) 975 mg PO Q6H PRN PRN Reason: Pain, Mild (Pain Scale 1-3), fever or headache Albuterol Sulfate (Albuterol Sulfate 90 Mcg 8 Gm Inhaler) 2 puff INHALE QID PRN PRN Reason: Wheezing Amlodipine Besylate (Amlodipine Besylate 2.5 Mg Tablet) 2.5 mg PO BEDTIME [facility]; Protocol Last Admin: 12/05/23 20:07 Dose: 2.5 mg Atorvastatin Calcium (Atorvastatin Calcium 40 Mg Tablet) 40 mg PO BEDTIME [facility] Last Admin: 12/05/23 20:06 Dose: 40 mg Bacitracin (Bacitracin Oint 0.9 Gm Packet) 1 appl TOPICAL TID [facility]; Protocol Last Admin: 12/05/23 20:24 Dose: 1 appl Calcium Carbonate (Calcium Carbonate 750 Mg Tab.Chew) 750 mg PO Q4H PRN PRN Reason: Heartburn Calcium Carbonate/Cholecalciferol (Calcium + Vitamin D 250 Mg Tablet) 250 mg PO BID [facility] Last Admin: 12/05/23 20:06 Dose: 250 mg Ferrous Sulfate (Ferrous Sulfate 324 Mg Tablet.Dr) 324 mg PO DAILY [facility] Fluticasone Propionate (Fluticasone Propionate 250 Mcg Blst.W.Dev) 1 puff INHALE RBID [facility] Last Admin: 12/05/23 19:44 Dose: 1 puff Folic Acid (Folic Acid 1 Mg Tablet) 1 mg PO DAILY [facility] Glucose (Glucose Gel 15 Gm Gel..Gram.) 15 gm PO Q15M PRN; Protocol PRN Reason: per Hypoglycemia Standing Ord. Clindamycin Phosphate (Cleocin) 600 mg in 50 mls @ 100 mls/hr IV Q8H [facility] Last Infusion: 12/05/23 18:50 Dose: Infused Levofloxacin (Levaquin) 750 mg in 150 mls @ 100 mls/hr IV Q48H [facility] Dextrose (D10) 250 mls @ 750 mls/hr IV Q15M PRN; Protocol PRN Reason: per Hypoglycemia Standing Ord. Imipramine HCl (Imipramine Hcl 50 Mg Tablet) 50 mg PO BEDTIME PRN PRN Reason: Constipation Insulin Glargine (Insulin Glargine,Hum.Rec.Anlog 100 Unit/Ml 10 Ml Vial) 12 unit SUBCUT BEDTIME [facility] Last Admin: 12/05/23 20:22 Dose: 12 unit Insulin Human Lispro (Insulin Lispro 100 Unit/Ml 3 Ml Vial) 0 unit SUBCUT QIDACHS [facility]; Protocol Last Admin: 12/05/23 20:18 Dose: Not Given Loratadine (Loratadine 10 Mg Tablet) 10 mg PO DAILY [facility] Last Admin: 12/05/23 14:22 Dose: 10 mg Magnesium Hydroxide (Milk Of Magnesia 30 Ml Oral.Susp) 30 ml PO DAILY PRN PRN Reason: Constipation Melatonin (Melatonin 3 Mg Tablet) 6 mg PO BEDTIME PRN PRN Reason: Insomnia Last Admin: 12/05/23 20:06 Dose: 6 mg Omeprazole (Omeprazole 20 Mg Capsule.Dr) 20 mg PO DAILY@0630 [facility] Oxcarbazepine (Oxcarbazepine 150 Mg Tablet) 150 mg PO BID PRN PRN Reason: Restless Leg(S) Last Admin: 12/05/23 20:06 Dose: 150 mg Oxycodone HCl (Oxycodone Hcl Immed Release 5 Mg Tablet) 5 mg PO Q6H PRN PRN Reason: Pain, Moderate(Pain Scale 4-6) Last Admin: 12/05/23 18:16 Dose: 5 mg Senna (Sennosides 8.6 Mg Tablet) 17.2 mg PO BEDTIME [facility] Last Admin: 12/05/23 20:06 Dose: 17.2 mg Sertraline HCl (Sertraline Hcl 50 Mg Tablet) 50 mg PO DAILY [facility] Sodium Chloride (0.9 % Sodium Chloride Flush 3 Ml Syringe) 3 ml IVFLUSH QSHIFT [facility] Last Admin: 12/05/23 16:23 Dose: 3 ml Topiramate (Topiramate 100 Mg Tablet) 100 mg PO BID [facility] Last Admin: 12/05/23 20:07 Dose: 100 mg Home Medications ?Medication ?Instructions ?Recorded ?Confirmed ?Last Taken ?Type atorvastatin 40 mg tablet 1 tab PO BEDTIME 01/12/20 02/21/24 12/05/23 History calcium 600 mg (as 1 tab PO BID 01/12/20 02/21/24 12/05/23 History carbonate)-vitamin D3 10 mcg (400 unit) tablet cetirizine 10 mg tablet 1 tab PO QAM 01/12/20 02/21/24 12/05/23 History oxcarbazepine 150 mg tablet 1 tab PO BID 01/12/20 02/21/24 12/05/23 History sertraline 50 mg tablet 50 mg PO DAILY 08/20/20 02/21/24 12/05/23 History albuterol sulfate 90 mcg/actuation 2 puff PO QID PRN Wheezing 02/18/21 02/21/24 12/05/23 History aerosol inhaler topiramate 100 mg tablet 100 mg PO BID 09/19/21 02/21/24 12/05/23 History folic acid 1 mg tablet 1 mg PO DAILY 12/05/23 02/21/24 12/05/23 History acetaminophen 500 mg tablet 1,000 mg PO Q6H PRN painpain 02/21/24 02/21/24 Unknown History fluticasone propionate 110 2 puff inhalation BID PRN 02/21/24 02/21/24 Unknown History mcg/actuation HFA aerosol inhaler Shortness Of Breath Or Wheezing fluticasone propionate 50 2 spray intranasal DAILY 02/21/24 02/21/24 Unknown History mcg/actuation nasal spray,suspension omeprazole 20 mg capsule,delayed 20 mg PO DAILY@0630 02/21/24 02/21/24 Unknown History release ropinirole 1 mg tablet 1 mg PO BID PRN restless leg 02/21/24 02/21/24 Unknown History syndrome Physical Exam Vital Signs: Vital Signs: Last Vital Signs Temp 97.6 F 12/05/23 20:00 Pulse 86 12/05/23 20:00 Resp 20 12/05/23 20:00 BP 102/55 L 12/05/23 20:07 Pulse Ox 100 12/05/23 20:00 O2 Del Method Room Air 12/05/23 20:00 BMI result Body Mass Index 29.4 Const: General: cooperative HEENT: Head: Yes normal to inspection Face and sinus: Yes normal facial exam Mouth: Normal oral and palatal mucosa present Teeth and gingiva: dentition normal Eyes: General: appearance normal, both eyes and all related structures Pupils: Equal, round and reactive pupils present Resp: Effort & Inspection: normal respiratory effort Cardio: Rate: regular rate Rhythm: regular rhythm GI: Palpation (GI): Soft to palpation and nontender : General: Yes no CVA tenderness Back/Spine/Pelvis: Back: no CVA tenderness Skin: General skin exam: no rashes or lesions noted Neuro: General: moves all extremities Cranial nerves: Yes Equal, round and reactive pupils present Extrem: Other: right hand redness and puncture almendarez General: Yes normal to inspection Psych: Appearance: grossly normal Results Labs 12/09/23 06:20 12/08/23 05:55 Labs: Short CBC 12/05/23 12/05/23 12/05/23 Range/Units 07:53 10:09 18:15 WBC 3.0 L 2.3 L (4.8-10.8) X10*3/uL Hgb 7.3 L 7.0 L* 8.6 L D (12.0-16.0) g/dl Hct 22.3 L 21.2 L 25.7 L D (37.0-47.0) % Plt Count 158 L 151 L (160-400) X10*3/uL BMP 12/05/23 07:53 Sodium 129 L Potassium 3.8 Chloride 99 Carbon Dioxide 22 BUN 24 H Creatinine 1.25 Calcium 9.2 Liver Function 12/05/23 Range/Units 07:53 Total Bilirubin 0.2 (0.0-1.0) mg/dL Direct Bilirubin < 0.2 (0.0-0.5) mg/dL AST 19 (5-31) U/L ALT 13 (0-31) U/L Alkaline Phosphatase 96 (39-117) U/L Albumin 3.2 L (3.5-5.0) g/dL Assessment and Plan (1) Cat bite of forearm: Qualifiers: Encounter type: initial encounter Laterality: right Qualified Code(s): S51.851A - Open bite of right forearm, initial encounter; W55.01XA - Bitten by cat, initial encounter Status: Acute Plan Clindamycin Levaquin Immunoglobulin for rabies if not given in addition to rabies shot series.
[2023-12-06] VITALS (14 sets, daily range): BP systolic 104–151; BP diastolic 45–68; PULSE 79–98; RESP 16–22; TEMP 36.1–36.7; O2SAT 90–100
[2023-12-06] MEDS: oxyCODONE HCl Immed Release 5 MG TABLET PO ×3 (01:59→20:21)
[2023-12-06] MEDS: Clindamycin Phosphate/D5W 600 MG/50 ML PIGGYBACK 100 MG IV ×3 (02:00→18:10)
[2023-12-06] MEDS: Omeprazole 20 MG CAPSULE.DR PO (06:36)
--- NOTE | 2023-12-06 07:24 | PC.NURSE ---
Patient received in bed last night AAOX4 . C/O right wrist pain . Medicated with 5 mg po oxycodone with good effect. POCT glucose 106 around 2100. No lispro insulin coverage. Lantus 12 units given + snack. Clindamycin 600 mg iv given as ordered. NPO status maintained since midnight. No signs of distress noted.
[2023-12-06 07:39] LABS: Glucose, Whole Blood 76 mg/dL (60-115)
[2023-12-06] MEDS: Ferrous Sulfate 324 MG TABLET.DR PO (07:49)
[2023-12-06] MEDS: Loratadine 10 MG TABLET PO (07:49)
[2023-12-06] MEDS: Folic Acid 1 MG TABLET PO (07:49)
[2023-12-06] MEDS: Bacitracin Oint 0.9 GM PACKET 1 APPL TOPICAL (07:49)
[2023-12-06] MEDS: Topiramate 100 MG TABLET PO ×2 (07:49→20:21)
[2023-12-06] MEDS: Calcium + Vitamin D 250 MG TABLET PO ×2 (07:49→21:15)
[2023-12-06] MEDS: 0.9 % Sodium Chloride Flush 3 ML SYRINGE IVFLUSH (07:49)
[2023-12-06] MEDS: Sertraline HCL 50 MG TABLET PO (07:49)
[2023-12-06] MEDS: Dextrose 10 % 250 ML 750 ML IV (07:50)
[2023-12-06 08:07] LABS: Hematocrit 23.9 % (37.0-47.0); Mean Corpuscular HGB Conc 33.5 g/dl (31.0-35.0); Mean Corpuscular Hemoglobin 28.7 pg (27.0-33.0); Mean Corpuscular Volume 85.7 fL (80.0-98.0); Mean Platelet Volume 8.5 fL (9.4-12.3); Platelet Count 144 X10*3/uL (160-400); Red Blood Count 2.79 X10*6/uL (4.20-5.50); Red Cell Distribution Width 14.9 % (11.0-16.0)
[2023-12-06] MEDS: Fluticasone Propionate 250 MCG BLST.W.DEV 1 PUFF INHALE ×2 (08:08→19:33)
[2023-12-06 08:09] LABS: White Blood Count 2.4 X10*3/uL (4.8-10.8)
--- NOTE | 2023-12-06 08:11 | P.CONAN_ITS ---
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) Chronic kidney disease, stage 3 (Acute) COPD (chronic obstructive pulmonary disease) (Acute) Nicotine dependence, cigarettes, uncomplicated (Acute) Anemia (Chronic) Chronic hyponatremia (Acute) Tubular adenoma of colon (Acute) IBS (irritable bowel syndrome) (Acute) GERD (gastroesophageal reflux disease) (Acute) Esophagitis (Acute) Hepatosplenomegaly (Acute) Hemorrhoids (Acute) Arthritis of right knee (Acute) Chronic back pain (Acute) Past Medical History Medical History Seizures Syncope History of TIA (transient ischemic attack) CHF (congestive heart failure) Essential hypertension Hyperlipidemia Type 2 diabetes mellitus with chronic kidney disease Chronic kidney disease, stage 3 Anemia COPD (chronic obstructive pulmonary disease) Asthma JANET (obstructive sleep apnea) Nicotine dependence, cigarettes, uncomplicated Restless leg syndrome Obesity Tubular adenoma of colon IBS (irritable bowel syndrome) Constipation Primary osteoarthritis of right knee Osteoarthritis Right knee pain History of migraine Functional capacity: independent ambulation Patient : No Family History Family History Father Hx of gout Diabetes Mother Diabetes Daughter Pre-diabetes Brother Cancer Family history of problems with anesthesia: No Surgical History Surgical History History of appendectomy History of cholecystectomy History of esophagogastroduodenoscopy (EGD) History of colonoscopy History of total left knee replacement (TKR) History of arthroscopy of left knee History of arthroscopy of right knee History of elbow surgery History of surgery on wrist History of carpal tunnel release of both wrists History of lumpectomy of right breast History of Problems with Anesthesia: No Social History Social History Household Members: None Housing: Apartment Do you presently have visiting nurse or other home services: No Alcohol intake: never Patient Tobacco Use Status: Current everyday Tobacco user Tobacco use type: Cigarette Cigarette Packs Per Day: 1 Cigarettes Per Day: 20.0 Years Smoked: onset 16yo, 3ppd x 47yrs, now 2ppd, >100pyh Second Hand Smoke Exposure: No Advance Directives Date on File: 02/18/21 service: No Current occupational status: disabled Current occupation: left hand dominant Meds Allergies Allergy/AdvReac Type Severity Reaction Status Date / Time hydrocodone [From Vicodin] Allergy Mild ITCHING Verified 12/05/23 07:08 SHANAE Inhibitors Allergy Unknown UNKNOWN Verified 12/05/23 07:08 [SHANAE INHIBITORS] ENVIROMENTAL Allergy Mild HAYFEVER Uncoded 12/05/23 07:08 lysol wipes Allergy Mild Hives Uncoded 12/05/23 07:08 [place] Allergy Unknown NEPHROPATHY Uncoded 12/05/23 07:08 Active Medications: Current Medications Acetaminophen (Acetaminophen 325 Mg Tablet) 975 mg PO Q6H PRN PRN Reason: Pain, Mild (Pain Scale 1-3), fever or headache Albuterol Sulfate (Albuterol Sulfate 90 Mcg 8 Gm Inhaler) 2 puff INHALE QID PRN PRN Reason: Wheezing Amlodipine Besylate (Amlodipine Besylate 2.5 Mg Tablet) 2.5 mg PO BEDTIME [facility]; Protocol Last Admin: 12/05/23 20:07 Dose: 2.5 mg Atorvastatin Calcium (Atorvastatin Calcium 40 Mg Tablet) 40 mg PO BEDTIME [facility] Last Admin: 12/05/23 20:06 Dose: 40 mg Bacitracin (Bacitracin Oint 0.9 Gm Packet) 1 appl TOPICAL TID [facility]; Protocol Last Admin: 12/06/23 07:49 Dose: 1 appl Calcium Carbonate (Calcium Carbonate 750 Mg Tab.Chew) 750 mg PO Q4H PRN PRN Reason: Heartburn Calcium Carbonate/Cholecalciferol (Calcium + Vitamin D 250 Mg Tablet) 250 mg PO BID [facility] Last Admin: 12/06/23 07:49 Dose: 250 mg Ferrous Sulfate (Ferrous Sulfate 324 Mg Tablet.Dr) 324 mg PO DAILY [facility] Last Admin: 12/06/23 07:49 Dose: 324 mg Fluticasone Propionate (Fluticasone Propionate 250 Mcg Blst.W.Dev) 1 puff INHALE RBID [facility] Last Admin: 12/06/23 08:08 Dose: 1 puff Folic Acid (Folic Acid 1 Mg Tablet) 1 mg PO DAILY [facility] Last Admin: 12/06/23 07:49 Dose: 1 mg Glucose (Glucose Gel 15 Gm Gel..Gram.) 15 gm PO Q15M PRN; Protocol PRN Reason: per Hypoglycemia Standing Ord. Clindamycin Phosphate (Cleocin) 600 mg in 50 mls @ 100 mls/hr IV Q8H [facility] Last Infusion: 12/06/23 02:30 Dose: Infused Levofloxacin (Levaquin) 750 mg in 150 mls @ 100 mls/hr IV Q48H [facility] Dextrose (D10) 250 mls @ 750 mls/hr IV Q15M PRN; Protocol PRN Reason: per Hypoglycemia Standing Ord. Last Admin: 12/06/23 07:50 Dose: 750 mls/hr Dextrose/Sodium Chloride (D5ns) 1,000 mls @ 80 mls/hr IVCONT .[id number] [facility] Imipramine HCl (Imipramine Hcl 50 Mg Tablet) 50 mg PO BEDTIME PRN PRN Reason: Constipation Insulin Glargine (Insulin Glargine,Hum.Rec.Anlog 100 Unit/Ml 10 Ml Vial) 12 unit SUBCUT BEDTIME [facility] Last Admin: 12/05/23 20:22 Dose: 12 unit Insulin Human Lispro (Insulin Lispro 100 Unit/Ml 3 Ml Vial) 0 unit SUBCUT QIDACHS [facility]; Protocol Last Admin: 12/06/23 07:44 Dose: Not Given Loratadine (Loratadine 10 Mg Tablet) 10 mg PO DAILY [facility] Last Admin: 12/06/23 07:49 Dose: 10 mg Magnesium Hydroxide (Milk Of Magnesia 30 Ml Oral.Susp) 30 ml PO DAILY PRN PRN Reason: Constipation Melatonin (Melatonin 3 Mg Tablet) 6 mg PO BEDTIME PRN PRN Reason: Insomnia Last Admin: 12/05/23 20:06 Dose: 6 mg Omeprazole (Omeprazole 20 Mg Capsule.Dr) 20 mg PO DAILY@0630 [facility] Last Admin: 12/06/23 06:36 Dose: 20 mg Oxcarbazepine (Oxcarbazepine 150 Mg Tablet) 150 mg PO BID PRN PRN Reason: Restless Leg(S) Last Admin: 12/05/23 20:06 Dose: 150 mg Oxycodone HCl (Oxycodone Hcl Immed Release 5 Mg Tablet) 5 mg PO Q6H PRN PRN Reason: Pain, Moderate(Pain Scale 4-6) Last Admin: 12/06/23 01:59 Dose: 5 mg Senna (Sennosides 8.6 Mg Tablet) 17.2 mg PO BEDTIME [facility] Last Admin: 12/05/23 20:06 Dose: 17.2 mg Sertraline HCl (Sertraline Hcl 50 Mg Tablet) 50 mg PO DAILY [facility] Last Admin: 12/06/23 07:49 Dose: 50 mg Sodium Chloride (0.9 % Sodium Chloride Flush 3 Ml Syringe) 3 ml IVFLUSH QSHIFT [facility] Last Admin: 12/06/23 07:49 Dose: 3 ml Topiramate (Topiramate 100 Mg Tablet) 100 mg PO BID [facility] Last Admin: 12/06/23 07:49 Dose: 100 mg Home Medications ?Medication ?Instructions ?Recorded ?Confirmed ?Last Taken ?Type atorvastatin 40 mg tablet 1 tab PO BEDTIME 01/12/20 12/05/23 12/05/23 History calcium carbonate 600 mg-vitamin 1 tab PO BID 01/12/20 12/05/23 12/05/23 History D3 10 mcg (400 unit) tablet cetirizine 10 mg tablet 1 tab PO QAM 01/12/20 12/05/23 12/05/23 History oxcarbazepine 150 mg tablet 1 tab PO BID PRN Restless Leg(S) 01/12/20 12/05/23 12/05/23 History sertraline 50 mg tablet 50 mg PO DAILY 08/20/20 12/05/23 12/05/23 History albuterol sulfate 90 mcg/actuation 2 puff PO QID PRN Wheezing 02/18/21 12/05/23 12/05/23 History aerosol inhaler fluticasone propionate 110 2 puff inhalation BID 02/18/21 12/05/23 12/05/23 History mcg/actuation HFA aerosol inhaler (Flovent HFA) furosemide 40 mg tablet 1.5 tab PO QAM 02/18/21 12/05/23 12/05/23 History insulin glargine 100 unit/mL (3 12 unit subcut BEDTIME 02/18/21 12/05/23 12/05/23 History mL) subcutaneous pen (Lantus Solostar U-100 Insulin) amlodipine 2.5 mg tablet 2.5 mg PO QPM 09/19/21 12/05/23 12/05/23 History ferrous sulfate 325 mg (65 mg 325 mg PO DAILY 09/19/21 12/05/23 12/05/23 History iron) tablet (FeroSul) olmesartan 40 mg tablet 40 mg PO DAILY 09/19/21 12/05/23 12/05/23 History topiramate 100 mg tablet 100 mg PO BID 09/19/21 12/05/23 12/05/23 History folic acid 1 mg tablet 1 mg PO DAILY 12/05/23 12/05/23 12/05/23 History imipramine HCl 25 mg tablet 50 mg PO BEDTIME PRN Constipation 12/05/23 12/05/23 12/05/23 History omeprazole 20 mg capsule,delayed 20 mg PO DAILY@0630 12/05/23 12/05/23 12/05/23 History release Exam Height,Weight and Vital Signs: Height 4 ft 10 in Weight 63.8 kg Last Vital Signs Temp 97.0 F 12/06/23 07:15 Pulse 88 12/06/23 08:09 Resp 22 H 12/06/23 08:09 BP 140/62 H 12/06/23 07:15 Pulse Ox 95 12/06/23 07:15 O2 Del Method Room Air 12/06/23 07:15 Pertinent Lab Results Pertinent Lab Results: Laboratory Tests 12/05/23 12/05/23 12/05/23 07:53 10:07 10:09 WBC 3.0 L 2.3 L RBC 2.64 L 2.51 L Hgb 7.3 L 7.0 L* Hct 22.3 L 21.2 L MCV 84.5 85.3 MCH 27.7 27.9 MCHC 32.7 32.7 RDW 15.2 15.3 Plt Count 158 L 151 L MPV 8.5 L 9.2 L Immature Gran % (Auto) 0.7 H Neut % (Auto) 51.5 Lymph % (Auto) 36.5 [place] % (Auto) 10.6 Eos % (Auto) 0.0 Baso % (Auto) 0.7 Lymph # (Auto) 1.1 L [place] # (Auto) 0.3 Eos # (Auto) 0.0 Baso # (Auto) 0.0 Abs Immat Gran (auto) 0.02 Absolute Neuts (auto) 1.6 L Absolute Nucleated RBC 0.000 0.000 Nucleated RBC % (auto) 0.0 0.0 Neutrophils % (Manual) Cancelled 47 Band Neutrophils % Cancelled 1 L Lymphocytes % (Manual) Cancelled 46 H Atypical Lymphs % (Man) Cancelled Monocytes % (Manual) Cancelled 5 Eosinophils % (Manual) Cancelled Basophils % (Manual) Cancelled 1 Metamyelocytes % Cancelled Myelocytes % Cancelled Promyelocytes % Cancelled Blast Cells % (Manual) Cancelled Plasma Cell % (Manual) Cancelled Abs Neuts (Manual) Cancelled 1.1 L Lymphocytes # (Manual) Cancelled 1.1 L Atyp Lymphs # (Manual) Cancelled Monocytes # (Manual) Cancelled 0.1 Eosinophils # (Manual) Cancelled Basophils # (Manual) Cancelled Metamyelocytes # Cancelled Myelocytes # Cancelled Promyelocytes # Cancelled Blast Cells # Cancelled Plasma Cell # (Manual) Cancelled Nucleated RBCs Cancelled Differential Comment Cancelled Hypersegmented Neuts Cancelled Smudge Cells Cancelled Toxic Granulation Cancelled Toxic Vacuolation Cancelled Dohle Bodies Cancelled Sachin Rods Cancelled WBC Morphology Comment Cancelled Platelet Estimate Cancelled NORMAL Large Platelets Cancelled Giant Platelets Cancelled Plt Morphology Comment Cancelled NORMAL RBC Morphology Cancelled NOTED Polychromasia Cancelled Hypochromasia Cancelled Basophilic Stippling Cancelled Microcytosis Cancelled Macrocytosis Cancelled Spherocytes Cancelled 3+ (>5) Pappenheimer Bodies Cancelled Sickle Cells Cancelled Target Cells Cancelled Tear Drop Cells Cancelled Ovalocytes Cancelled Stomatocytes Cancelled [place] Bodies Cancelled [place] Cells Cancelled 1+ (0-2) Acanthocytes (Spur) Cancelled Rouleaux Cancelled Schistocytes Cancelled ESR 123 H Absolute Retic Cancelled 0.020 L Percent Retic Cancelled 0.8 Immature Retic Fraction Cancelled 14.9 Retic Hgb Equivalent Cancelled 19.2 L Sodium 129 L Potassium 3.8 Chloride 99 Carbon Dioxide 22 Anion Gap 12 BUN 24 H Creatinine 1.25 Estim Creat Clear Calc 37.5 Estimated GFR 43 POC Glucose Random Glucose 107 Haptoglobin Lactic Acid 1.0 Calcium 9.2 Total Bilirubin 0.2 Direct Bilirubin < 0.2 AST 19 ALT 13 Alkaline Phosphatase 96 Lactate Dehydrogenase 174 C-Reactive Protein 12.16 H Total Protein 6.9 Albumin 3.2 L Blood Type A Positive Antibody Screen NEGATIVE Crossmatch See Detail 12/05/23 12/05/23 12/05/23 10:54 16:24 18:15 WBC RBC Hgb 8.6 L D Hct 25.7 L D MCV MCH MCHC RDW Plt Count MPV Immature Gran % (Auto) Neut % (Auto) Lymph % (Auto) [place] % (Auto) Eos % (Auto) Baso % (Auto) Lymph # (Auto) [place] # (Auto) Eos # (Auto) Baso # (Auto) Abs Immat Gran (auto) Absolute Neuts (auto) Absolute Nucleated RBC Nucleated RBC % (auto) Neutrophils % (Manual) Band Neutrophils % Lymphocytes % (Manual) Atypical Lymphs % (Man) Monocytes % (Manual) Eosinophils % (Manual) Basophils % (Manual) Metamyelocytes % Myelocytes % Promyelocytes % Blast Cells % (Manual) Plasma Cell % (Manual) Abs Neuts (Manual) Lymphocytes # (Manual) Atyp Lymphs # (Manual) Monocytes # (Manual) Eosinophils # (Manual) Basophils # (Manual) Metamyelocytes # Myelocytes # Promyelocytes # Blast Cells # Plasma Cell # (Manual) Nucleated RBCs Differential Comment Hypersegmented Neuts Smudge Cells Toxic Granulation Toxic Vacuolation Dohle Bodies Sachin Rods WBC Morphology Comment Platelet Estimate Large Platelets Giant Platelets Plt Morphology Comment RBC Morphology Polychromasia Hypochromasia Basophilic Stippling Microcytosis Macrocytosis Spherocytes Pappenheimer Bodies Sickle Cells Target Cells Tear Drop Cells Ovalocytes Stomatocytes [place]isen[place] Bodies Yue Cells Acanthocytes (Spur) Rouleaux Schistocytes ESR Absolute Retic Percent Retic Immature Retic Fraction Retic Hgb Equivalent Sodium Potassium Chloride Carbon Dioxide Anion Gap BUN Creatinine Estim Creat Clear Calc Estimated GFR POC Glucose 110 Random Glucose Haptoglobin 268 Lactic Acid Calcium Total Bilirubin Direct Bilirubin AST ALT Alkaline Phosphatase Lactate Dehydrogenase C-Reactive Protein Total Protein Albumin Blood Type Antibody Screen Crossmatch 12/05/23 12/06/23 12/06/23 20:15 07:19 07:47 WBC 2.4 L RBC 2.79 L Hgb 8.0 L Hct 23.9 L MCV 85.7 MCH 28.7 MCHC 33.5 RDW 14.9 Plt Count 144 L MPV 8.5 L Immature Gran % (Auto) Neut % (Auto) Lymph % (Auto) [place] % (Auto) Eos % (Auto) Baso % (Auto) Lymph # (Auto) [place] # (Auto) Eos # (Auto) Baso # (Auto) Abs Immat Gran (auto) Absolute Neuts (auto) Absolute Nucleated RBC 0.000 Nucleated RBC % (auto) 0.0 Neutrophils % (Manual) Band Neutrophils % Lymphocytes % (Manual) Atypical Lymphs % (Man) Monocytes % (Manual) Eosinophils % (Manual) Basophils % (Manual) Metamyelocytes % Myelocytes % Promyelocytes % Blast Cells % (Manual) Plasma Cell % (Manual) Abs Neuts (Manual) Lymphocytes # (Manual) Atyp Lymphs # (Manual) Monocytes # (Manual) Eosinophils # (Manual) Basophils # (Manual) Metamyelocytes # Myelocytes # Promyelocytes # Blast Cells # Plasma Cell # (Manual) Nucleated RBCs Differential Comment Hypersegmented Neuts Smudge Cells Toxic Granulation Toxic Vacuolation Dohle Bodies Sachin Rods WBC Morphology Comment Platelet Estimate Large Platelets Giant Platelets Plt Morphology Comment RBC Morphology Polychromasia Hypochromasia Basophilic Stippling Microcytosis Macrocytosis Spherocytes Pappenheimer Bodies Sickle Cells Target Cells Tear Drop Cells Ovalocytes Stomatocytes [place] Bodies [place] Cells Acanthocytes (Spur) Rouleaux Schistocytes ESR Absolute Retic Percent Retic Immature Retic Fraction Retic Hgb Equivalent Sodium Potassium Chloride Carbon Dioxide Anion Gap BUN Creatinine Estim Creat Clear Calc Estimated GFR POC Glucose 106 76 Random Glucose Haptoglobin Lactic Acid Calcium Total Bilirubin Direct Bilirubin AST ALT Alkaline Phosphatase Lactate Dehydrogenase C-Reactive Protein Total Protein Albumin Blood Type Antibody Screen Crossmatch Airway Mallampati Class: II TM Dist: >3cm Neck ROM: Full Heart: RRR Lungs: CTA Assessment and Plan Assessment Anesthesia Assessment: Anesthesia Plan Discussed, Smoking Cess. Discussed and Chart Reviewed Final Anesthetic Review Family History of Problems with Anesthesia: No History of Problems with Anesthesia: No NPO: Yes ASA Class: II Final Preanesthetic Review: Meds/Allgs Chart Reviewed, Consent Obtained/Reviewed and Anes Risks/Benef Reviewed Patient Risk: Intermediate Procedure Risk: Low Anesthetic Plan Anesthetic Plan: GA Disposition: Standard PACU
[2023-12-06 08:15] LABS: Anion Gap 12 (12-20); Blood Urea Nitrogen 20 mg/dL (9-16); Calcium 9.1 mg/dL (8.4-10.2); Carbon Dioxide 20 mmol/L (22-29); Chloride 106 mmol/L (96-108); Creatinine Clr Calc Pharmacy 49.4; Estimated Glomerular Filt Rate > 60; Glucose Random 77 mg/dL (60-115); Potassium 4.1 mmol/L (3.3-5.1); Sodium 134 mmol/L (135-145)
--- NOTE | 2023-12-06 08:24 | HO.ANESPROP2 ---
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) Chronic kidney disease, stage 3 (Acute) COPD (chronic obstructive pulmonary disease) (Acute) Nicotine dependence, cigarettes, uncomplicated (Acute) Anemia (Chronic) Chronic hyponatremia (Acute) Tubular adenoma of colon (Acute) IBS (irritable bowel syndrome) (Acute) GERD (gastroesophageal reflux disease) (Acute) Esophagitis (Acute) Hepatosplenomegaly (Acute) Hemorrhoids (Acute) Arthritis of right knee (Acute) Chronic back pain (Acute) Past Medical History Medical History Seizures Syncope History of TIA (transient ischemic attack) CHF (congestive heart failure) Essential hypertension Hyperlipidemia Type 2 diabetes mellitus with chronic kidney disease Chronic kidney disease, stage 3 Anemia COPD (chronic obstructive pulmonary disease) Asthma JANET (obstructive sleep apnea) Nicotine dependence, cigarettes, uncomplicated Restless leg syndrome Obesity Tubular adenoma of colon IBS (irritable bowel syndrome) Constipation Primary osteoarthritis of right knee Osteoarthritis Right knee pain History of migraine Functional capacity: independent ambulation Patient : No Family History Family History Father Hx of gout Diabetes Mother Diabetes Daughter Pre-diabetes Brother Cancer Family history of problems with anesthesia: No Surgical History Surgical History History of appendectomy History of cholecystectomy History of esophagogastroduodenoscopy (EGD) History of colonoscopy History of total left knee replacement (TKR) History of arthroscopy of left knee History of arthroscopy of right knee History of elbow surgery History of surgery on wrist History of carpal tunnel release of both wrists History of lumpectomy of right breast History of Problems with Anesthesia: No Social History Social History Household Members: None Housing: Apartment Do you presently have visiting nurse or other home services: No Alcohol intake: never Patient Tobacco Use Status: Current everyday Tobacco user Tobacco use type: Cigarette Cigarette Packs Per Day: 1 Cigarettes Per Day: 20.0 Years Smoked: onset 16yo, 3ppd x 47yrs, now 2ppd, >100pyh Second Hand Smoke Exposure: No Advance Directives Date on File: 02/18/21 service: No Current occupational status: disabled Current occupation: left hand dominant Meds Allergies Allergy/AdvReac Type Severity Reaction Status Date / Time hydrocodone [From Vicodin] Allergy Mild ITCHING Verified 12/05/23 07:08 SHANAE Inhibitors Allergy Unknown UNKNOWN Verified 12/05/23 07:08 [SHANAE INHIBITORS] ENVIROMENTAL Allergy Mild HAYFEVER Uncoded 12/05/23 07:08 lysol wipes Allergy Mild Hives Uncoded 12/05/23 07:08 [place] Allergy Unknown NEPHROPATHY Uncoded 12/05/23 07:08 Active Medications: Current Medications Acetaminophen (Acetaminophen 325 Mg Tablet) 975 mg PO Q6H PRN PRN Reason: Pain, Mild (Pain Scale 1-3), fever or headache Albuterol Sulfate (Albuterol Sulfate 90 Mcg 8 Gm Inhaler) 2 puff INHALE QID PRN PRN Reason: Wheezing Amlodipine Besylate (Amlodipine Besylate 2.5 Mg Tablet) 2.5 mg PO BEDTIME [facility]; Protocol Last Admin: 12/05/23 20:07 Dose: 2.5 mg Atorvastatin Calcium (Atorvastatin Calcium 40 Mg Tablet) 40 mg PO BEDTIME [facility] Last Admin: 12/05/23 20:06 Dose: 40 mg Bacitracin (Bacitracin Oint 0.9 Gm Packet) 1 appl TOPICAL TID [facility]; Protocol Last Admin: 12/06/23 07:49 Dose: 1 appl Calcium Carbonate (Calcium Carbonate 750 Mg Tab.Chew) 750 mg PO Q4H PRN PRN Reason: Heartburn Calcium Carbonate/Cholecalciferol (Calcium + Vitamin D 250 Mg Tablet) 250 mg PO BID [facility] Last Admin: 12/06/23 07:49 Dose: 250 mg Ferrous Sulfate (Ferrous Sulfate 324 Mg Tablet.Dr) 324 mg PO DAILY [facility] Last Admin: 12/06/23 07:49 Dose: 324 mg Fluticasone Propionate (Fluticasone Propionate 250 Mcg Blst.W.Dev) 1 puff INHALE RBID [facility] Last Admin: 12/06/23 08:08 Dose: 1 puff Folic Acid (Folic Acid 1 Mg Tablet) 1 mg PO DAILY [facility] Last Admin: 12/06/23 07:49 Dose: 1 mg Glucose (Glucose Gel 15 Gm Gel..Gram.) 15 gm PO Q15M PRN; Protocol PRN Reason: per Hypoglycemia Standing Ord. Clindamycin Phosphate (Cleocin) 600 mg in 50 mls @ 100 mls/hr IV Q8H [facility] Last Infusion: 12/06/23 02:30 Dose: Infused Levofloxacin (Levaquin) 750 mg in 150 mls @ 100 mls/hr IV Q48H [facility] Dextrose (D10) 250 mls @ 750 mls/hr IV Q15M PRN; Protocol PRN Reason: per Hypoglycemia Standing Ord. Last Admin: 12/06/23 07:50 Dose: 750 mls/hr Dextrose/Sodium Chloride (D5ns) 1,000 mls @ 80 mls/hr IVCONT .[id number] [facility] Imipramine HCl (Imipramine Hcl 50 Mg Tablet) 50 mg PO BEDTIME PRN PRN Reason: Constipation Insulin Glargine (Insulin Glargine,Hum.Rec.Anlog 100 Unit/Ml 10 Ml Vial) 12 unit SUBCUT BEDTIME [facility] Last Admin: 12/05/23 20:22 Dose: 12 unit Insulin Human Lispro (Insulin Lispro 100 Unit/Ml 3 Ml Vial) 0 unit SUBCUT QIDACHS [facility]; Protocol Last Admin: 12/06/23 07:44 Dose: Not Given Loratadine (Loratadine 10 Mg Tablet) 10 mg PO DAILY [facility] Last Admin: 12/06/23 07:49 Dose: 10 mg Magnesium Hydroxide (Milk Of Magnesia 30 Ml Oral.Susp) 30 ml PO DAILY PRN PRN Reason: Constipation Melatonin (Melatonin 3 Mg Tablet) 6 mg PO BEDTIME PRN PRN Reason: Insomnia Last Admin: 12/05/23 20:06 Dose: 6 mg Omeprazole (Omeprazole 20 Mg Capsule.Dr) 20 mg PO DAILY@0630 [facility] Last Admin: 12/06/23 06:36 Dose: 20 mg Oxcarbazepine (Oxcarbazepine 150 Mg Tablet) 150 mg PO BID PRN PRN Reason: Restless Leg(S) Last Admin: 12/05/23 20:06 Dose: 150 mg Oxycodone HCl (Oxycodone Hcl Immed Release 5 Mg Tablet) 5 mg PO Q6H PRN PRN Reason: Pain, Moderate(Pain Scale 4-6) Last Admin: 12/06/23 01:59 Dose: 5 mg Senna (Sennosides 8.6 Mg Tablet) 17.2 mg PO BEDTIME [facility] Last Admin: 12/05/23 20:06 Dose: 17.2 mg Sertraline HCl (Sertraline Hcl 50 Mg Tablet) 50 mg PO DAILY [facility] Last Admin: 12/06/23 07:49 Dose: 50 mg Sodium Chloride (0.9 % Sodium Chloride Flush 3 Ml Syringe) 3 ml IVFLUSH QSHIFT [facility] Last Admin: 12/06/23 07:49 Dose: 3 ml Topiramate (Topiramate 100 Mg Tablet) 100 mg PO BID [facility] Last Admin: 12/06/23 07:49 Dose: 100 mg Home Medications ?Medication ?Instructions ?Recorded ?Confirmed ?Last Taken ?Type atorvastatin 40 mg tablet 1 tab PO BEDTIME 01/12/20 12/05/23 12/05/23 History calcium carbonate 600 mg-vitamin 1 tab PO BID 01/12/20 12/05/23 12/05/23 History D3 10 mcg (400 unit) tablet cetirizine 10 mg tablet 1 tab PO QAM 01/12/20 12/05/23 12/05/23 History oxcarbazepine 150 mg tablet 1 tab PO BID PRN Restless Leg(S) 01/12/20 12/05/23 12/05/23 History sertraline 50 mg tablet 50 mg PO DAILY 08/20/20 12/05/23 12/05/23 History albuterol sulfate 90 mcg/actuation 2 puff PO QID PRN Wheezing 02/18/21 12/05/23 12/05/23 History aerosol inhaler fluticasone propionate 110 2 puff inhalation BID 02/18/21 12/05/23 12/05/23 History mcg/actuation HFA aerosol inhaler (Flovent HFA) furosemide 40 mg tablet 1.5 tab PO QAM 02/18/21 12/05/23 12/05/23 History insulin glargine 100 unit/mL (3 12 unit subcut BEDTIME 02/18/21 12/05/23 12/05/23 History mL) subcutaneous pen (Lantus Solostar U-100 Insulin) amlodipine 2.5 mg tablet 2.5 mg PO QPM 09/19/21 12/05/23 12/05/23 History ferrous sulfate 325 mg (65 mg 325 mg PO DAILY 09/19/21 12/05/23 12/05/23 History iron) tablet (FeroSul) olmesartan 40 mg tablet 40 mg PO DAILY 09/19/21 12/05/23 12/05/23 History topiramate 100 mg tablet 100 mg PO BID 09/19/21 12/05/23 12/05/23 History folic acid 1 mg tablet 1 mg PO DAILY 12/05/23 12/05/23 12/05/23 History imipramine HCl 25 mg tablet 50 mg PO BEDTIME PRN Constipation 12/05/23 12/05/23 12/05/23 History omeprazole 20 mg capsule,delayed 20 mg PO DAILY@0630 12/05/23 12/05/23 12/05/23 History release Exam Height,Weight and Vital Signs: Height 4 ft 10 in Weight 63.8 kg Last Vital Signs Temp 97.0 F 12/06/23 07:15 Pulse 88 12/06/23 08:09 Resp 22 H 12/06/23 08:09 BP 140/62 H 12/06/23 07:15 Pulse Ox 95 12/06/23 07:15 O2 Del Method Room Air 12/06/23 07:15 Pertinent Lab Results Pertinent Lab Results: Laboratory Tests 12/05/23 12/05/23 12/05/23 07:53 10:07 10:09 WBC 3.0 L 2.3 L RBC 2.64 L 2.51 L Hgb 7.3 L 7.0 L* Hct 22.3 L 21.2 L MCV 84.5 85.3 MCH 27.7 27.9 MCHC 32.7 32.7 RDW 15.2 15.3 Plt Count 158 L 151 L MPV 8.5 L 9.2 L Immature Gran % (Auto) 0.7 H Neut % (Auto) 51.5 Lymph % (Auto) 36.5 [place] % (Auto) 10.6 Eos % (Auto) 0.0 Baso % (Auto) 0.7 Lymph # (Auto) 1.1 L [place] # (Auto) 0.3 Eos # (Auto) 0.0 Baso # (Auto) 0.0 Abs Immat Gran (auto) 0.02 Absolute Neuts (auto) 1.6 L Absolute Nucleated RBC 0.000 0.000 Nucleated RBC % (auto) 0.0 0.0 Neutrophils % (Manual) Cancelled 47 Band Neutrophils % Cancelled 1 L Lymphocytes % (Manual) Cancelled 46 H Atypical Lymphs % (Man) Cancelled Monocytes % (Manual) Cancelled 5 Eosinophils % (Manual) Cancelled Basophils % (Manual) Cancelled 1 Metamyelocytes % Cancelled Myelocytes % Cancelled Promyelocytes % Cancelled Blast Cells % (Manual) Cancelled Plasma Cell % (Manual) Cancelled Abs Neuts (Manual) Cancelled 1.1 L Lymphocytes # (Manual) Cancelled 1.1 L Atyp Lymphs # (Manual) Cancelled Monocytes # (Manual) Cancelled 0.1 Eosinophils # (Manual) Cancelled Basophils # (Manual) Cancelled Metamyelocytes # Cancelled Myelocytes # Cancelled Promyelocytes # Cancelled Blast Cells # Cancelled Plasma Cell # (Manual) Cancelled Nucleated RBCs Cancelled Differential Comment Cancelled Hypersegmented Neuts Cancelled Smudge Cells Cancelled Toxic Granulation Cancelled Toxic Vacuolation Cancelled Dohle Bodies Cancelled Sachin Rods Cancelled WBC Morphology Comment Cancelled Platelet Estimate Cancelled NORMAL Large Platelets Cancelled Giant Platelets Cancelled Plt Morphology Comment Cancelled NORMAL RBC Morphology Cancelled NOTED Polychromasia Cancelled Hypochromasia Cancelled Basophilic Stippling Cancelled Microcytosis Cancelled Macrocytosis Cancelled Spherocytes Cancelled 3+ (>5) Pappenheimer Bodies Cancelled Sickle Cells Cancelled Target Cells Cancelled Tear Drop Cells Cancelled Ovalocytes Cancelled Stomatocytes Cancelled [place] Bodies Cancelled [place] Cells Cancelled 1+ (0-2) Acanthocytes (Spur) Cancelled Rouleaux Cancelled Schistocytes Cancelled ESR 123 H Absolute Retic Cancelled 0.020 L Percent Retic Cancelled 0.8 Immature Retic Fraction Cancelled 14.9 Retic Hgb Equivalent Cancelled 19.2 L Sodium 129 L Potassium 3.8 Chloride 99 Carbon Dioxide 22 Anion Gap 12 BUN 24 H Creatinine 1.25 Estim Creat Clear Calc 37.5 Estimated GFR 43 POC Glucose Random Glucose 107 Haptoglobin Lactic Acid 1.0 Calcium 9.2 Total Bilirubin 0.2 Direct Bilirubin < 0.2 AST 19 ALT 13 Alkaline Phosphatase 96 Lactate Dehydrogenase 174 C-Reactive Protein 12.16 H Total Protein 6.9 Albumin 3.2 L Blood Type A Positive Antibody Screen NEGATIVE Crossmatch See Detail 12/05/23 12/05/23 12/05/23 10:54 16:24 18:15 WBC RBC Hgb 8.6 L D Hct 25.7 L D MCV MCH MCHC RDW Plt Count MPV Immature Gran % (Auto) Neut % (Auto) Lymph % (Auto) [place] % (Auto) Eos % (Auto) Baso % (Auto) Lymph # (Auto) [place] # (Auto) Eos # (Auto) Baso # (Auto) Abs Immat Gran (auto) Absolute Neuts (auto) Absolute Nucleated RBC Nucleated RBC % (auto) Neutrophils % (Manual) Band Neutrophils % Lymphocytes % (Manual) Atypical Lymphs % (Man) Monocytes % (Manual) Eosinophils % (Manual) Basophils % (Manual) Metamyelocytes % Myelocytes % Promyelocytes % Blast Cells % (Manual) Plasma Cell % (Manual) Abs Neuts (Manual) Lymphocytes # (Manual) Atyp Lymphs # (Manual) Monocytes # (Manual) Eosinophils # (Manual) Basophils # (Manual) Metamyelocytes # Myelocytes # Promyelocytes # Blast Cells # Plasma Cell # (Manual) Nucleated RBCs Differential Comment Hypersegmented Neuts Smudge Cells Toxic Granulation Toxic Vacuolation Dohle Bodies Sachin Rods WBC Morphology Comment Platelet Estimate Large Platelets Giant Platelets Plt Morphology Comment RBC Morphology Polychromasia Hypochromasia Basophilic Stippling Microcytosis Macrocytosis Spherocytes Pappenheimer Bodies Sickle Cells Target Cells Tear Drop Cells Ovalocytes Stomatocytes [place] Bodies Yue Cells Acanthocytes (Spur) Rouleaux Schistocytes ESR Absolute Retic Percent Retic Immature Retic Fraction Retic Hgb Equivalent Sodium Potassium Chloride Carbon Dioxide Anion Gap BUN Creatinine Estim Creat Clear Calc Estimated GFR POC Glucose 110 Random Glucose Haptoglobin 268 Lactic Acid Calcium Total Bilirubin Direct Bilirubin AST ALT Alkaline Phosphatase Lactate Dehydrogenase C-Reactive Protein Total Protein Albumin Blood Type Antibody Screen Crossmatch 12/05/23 12/06/23 12/06/23 20:15 07:19 07:47 WBC 2.4 L RBC 2.79 L Hgb 8.0 L Hct 23.9 L MCV 85.7 MCH 28.7 MCHC 33.5 RDW 14.9 Plt Count 144 L MPV 8.5 L Immature Gran % (Auto) Neut % (Auto) Lymph % (Auto) [place] % (Auto) Eos % (Auto) Baso % (Auto) Lymph # (Auto) [place] # (Auto) Eos # (Auto) Baso # (Auto) Abs Immat Gran (auto) Absolute Neuts (auto) Absolute Nucleated RBC 0.000 Nucleated RBC % (auto) 0.0 Neutrophils % (Manual) Band Neutrophils % Lymphocytes % (Manual) Atypical Lymphs % (Man) Monocytes % (Manual) Eosinophils % (Manual) Basophils % (Manual) Metamyelocytes % Myelocytes % Promyelocytes % Blast Cells % (Manual) Plasma Cell % (Manual) Abs Neuts (Manual) Lymphocytes # (Manual) Atyp Lymphs # (Manual) Monocytes # (Manual) Eosinophils # (Manual) Basophils # (Manual) Metamyelocytes # Myelocytes # Promyelocytes # Blast Cells # Plasma Cell # (Manual) Nucleated RBCs Differential Comment Hypersegmented Neuts Smudge Cells Toxic Granulation Toxic Vacuolation Dohle Bodies Sachin Rods WBC Morphology Comment Platelet Estimate Large Platelets Giant Platelets Plt Morphology Comment RBC Morphology Polychromasia Hypochromasia Basophilic Stippling Microcytosis Macrocytosis Spherocytes Pappenheimer Bodies Sickle Cells Target Cells Tear Drop Cells Ovalocytes Stomatocytes [place] Bodies [place] Cells Acanthocytes (Spur) Rouleaux Schistocytes ESR Absolute Retic Percent Retic Immature Retic Fraction Retic Hgb Equivalent Sodium 134 L Potassium 4.1 Chloride 106 Carbon Dioxide 20 L Anion Gap 12 BUN 20 H Creatinine 0.92 Estim Creat Clear Calc 49.4 Estimated GFR > 60 POC Glucose 106 76 Random Glucose 77 Haptoglobin Lactic Acid Calcium 9.1 Total Bilirubin Direct Bilirubin AST ALT Alkaline Phosphatase Lactate Dehydrogenase C-Reactive Protein Total Protein Albumin Blood Type Antibody Screen Crossmatch Airway Heart: RRR Lungs: Ilda Assessment and Plan Final Anesthetic Review Family History of Problems with Anesthesia: No History of Problems with Anesthesia: No
--- NOTE | 2023-12-06 08:31 | MHC.SHP ---
Pre-Procedural Eval Section A - 24 Hr Update-Section A only Date of Service: 12/06/23 The patient is an INPATIENT: Yes Changes since office visit: No Cold of Flu in the past 2 weeks, No New Medical Problems, No Changes in Medication and No Patient answered all questions The patient has been examined within 24 hours of the surgical procedure. The History & Physical has been completed within 30 days and I have reviewed it.: Yes Section B - Complete if H&P > 30 days Chief Complaint: arm/hand cellulitis /abscess, right Allergies: Allergies Allergy/AdvReac Type Severity Reaction Status Date / Time hydrocodone [From Vicodin] Allergy Mild ITCHING Verified 12/05/23 07:08 SHANAE Inhibitors Allergy Unknown UNKNOWN Verified 12/05/23 07:08 [SHANAE INHIBITORS] ENVIROMENTAL Allergy Mild HAYFEVER Uncoded 12/05/23 07:08 lysol wipes Allergy Mild Hives Uncoded 12/05/23 07:08 [place] Allergy Unknown NEPHROPATHY Uncoded 12/05/23 07:08 Exam Exam Comment: The patient was seen and evaluated by me yesterday in the emergency department and again this morning. She has a history of multiple cat bites to her right hand and wrist, subsequently developing cellulitis and an abscess. Plan I have reviewed the history and physical and performed a pertinent physical examination on my patient. No changes have occurred unless specified. The risks and benefits of operative treatment were discussed with the patient and the patient wishes to proceed with surgery. These risks include, but are not limited to risk of damage to blood vessels, nerves, tendons, infection, recurrence, incomplete relief of preoperative symptoms, persistent pain, possible need for further surgery and the risks associated with regional blocks and anesthesia. The plan is to take the patient to the operating room today for the following procedures: 1. Right hand and wrist I and D 2. [ ] All of the preoperative paperwork including the consent was filled out today. All the patient's questions were answered. Time Spent With Patient Time: Total time managing care of this patient today ____ minutes.
--- NOTE | 2023-12-06 08:33 | W.PM.OPN ---
Operative Note Operative Note Date of Service: 12/06/23 Narrative: Operative Note Narrative: Preop diagnosis: 1. Right radial wrist abscess status post cat bite 2. Right dorsal wrist abscess status post cat bite Postop diagnosis: Same Procedure: 1. Right radial wrist abscess I and D 2. Right dorsal hand abscess I and D , down to extensor tendons Surgeon: Lupe Moreno MD Carding Machine Feeder: Glenroy ZURITA Anesthesia: General Anesthesia Findings: Watery purulence from both the radial wound over the 1st dorsal extensor tendon compartment, and over the dorsal aspect of the distal forearm over the 4th dorsal extensor compartment with communication between. Implants: Iodoform gauze drains x2 Tourniquet time: 14 minutes EBL: 5.0 ml Specimen: Cultures x2 sent for histopathology Drains: None Complications: None Disposition: Brought to the recovery room in stable condition Plan: Admit back to floor for continued IV antibiotics. Pull drains and dressing change in the morning, daily dressing changes after that Check cultures and adjust antibiotics Close follow-up in our clinic after discharge ?for wound check, suture removal and to check Indications: The patient is a 63 year old right hand and wrist abscesses following multiple cat bites. The risks and benefits of operative treatment, including but not limited to risk of damage to blood vessels, nerves, tendons, infection, recurrence, persistent pain or numbness, incomplete resolution of preoperative symptoms, or need for further surgery were discussed with the patient and they wished to proceed with surgery. Procedure: Once consent was obtained patient was brought back to the operating suite and placed in the operating table in a supine position. Anesthesia was administered by the anesthesia team. A tourniquet was applied to the proximal aspect of the right upper extremity and the limb was prepped and draped in a standard surgical fashion. The limb was elevated and the tourniquet inflated to 250 mm of mercury for a total tourniquet time of 14 minutes. I made a 1.5 cm longitudinal incision centered over a bite wound on the radial aspect of her right wrist approximately 2 cm proximal to the radial styloid. The incision was made through the skin to the subcutaneous tissues. We had immediate drainage of cloudy watery purulent fluid and this extended down to the 1st dorsal compartment tendons. I then made a 2nd 1.5 cm longitudinal incision over the dorsal aspect of the distal forearm/wrist approximately 2 cm proximal to the wrist joint itself. Incision was made through the skin to the subcutaneous tissues using a 15. Blade. I then dissected down into the subcutaneous tissues and had cloudy purulent fluid. This abscess cavity extended down to the extensor tendons and did communicate with the bite wound abscess on the radial aspect of the wrist. There were 2 other smaller bite wounds that I just opened up locally with a pair of tenotomy scissors. All of these wounds were copiously irrigated with normal saline. I copiously flushed the wounds between the 1st dorsal compartment wound and the wound over the dorsal aspect of the wrist. Once satisfied with our I&D the tourniquet was deflated and hemostasis obtained with a brief period of local pressure. The wound was again copiously irrigated with normal saline. Two strips of plain iodoform type gauze were soaked in Betadine and placed into the wound to facilitate drainage. The wounds were infiltrated with some 1% lidocaine with epinephrine for postop pain control and a sterile dressing was applied. The patient appears to have tolerated the procedure well and with no complications. All digits were well vascularized conclusion of the case.
--- NOTE | 2023-12-06 09:17 | P.PNIM_ITS ---
Subjective Subjective Date of Service: 12/06/23 Interval History: hand cellulitis, cat bite Review of Systems arm erythema/swelling/pain seems similar n Physical Exam 2 Vital Signs: Vital Signs: Last Vital Signs Temp 97.0 F 12/06/23 07:15 Pulse 88 12/06/23 08:09 Resp 22 H 12/06/23 08:09 BP 140/62 H 12/06/23 07:15 Pulse Ox 95 12/06/23 07:15 O2 Del Method Room Air 12/06/23 07:15 BMI result Body Mass Index 29.4 Appearance: Alert.? Oriented X3. cvs: rrr, [id number] . res: clear to auscultation ,no rhonchii or wheezing abd: no rebound or guarding ,nt, bs present. ext pulses present , no cyanosis . MS : right hand /wrist -erythema/sweling, some drainge , can wiggle fingers but unable to make fist. neuro: axo3 , nonfocal. Objective Data Active Medications Acetaminophen (Acetaminophen 325 Mg Tablet) 975 mg PO Q6H PRN PRN Reason: Pain, Mild (Pain Scale 1-3), fever or headache Albuterol Sulfate (Albuterol Sulfate 90 Mcg 8 Gm Inhaler) 2 puff INHALE QID PRN PRN Reason: Wheezing Amlodipine Besylate (Amlodipine Besylate 2.5 Mg Tablet) 2.5 mg PO BEDTIME [facility]; Protocol Last Admin: 12/05/23 20:07 Dose: 2.5 mg Documented By: URSULA Atorvastatin Calcium (Atorvastatin Calcium 40 Mg Tablet) 40 mg PO BEDTIME [facility] Last Admin: 12/05/23 20:06 Dose: 40 mg Documented By: URSULA Bacitracin (Bacitracin Oint 0.9 Gm Packet) 1 appl TOPICAL TID [facility]; Protocol Last Admin: 12/06/23 07:49 Dose: 1 appl Documented By: DINAH Calcium Carbonate (Calcium Carbonate 750 Mg Tab.Chew) 750 mg PO Q4H PRN PRN Reason: Heartburn Calcium Carbonate/Cholecalciferol (Calcium + Vitamin D 250 Mg Tablet) 250 mg PO BID [facility] Last Admin: 12/06/23 07:49 Dose: 250 mg Documented By: DINAH Ferrous Sulfate (Ferrous Sulfate 324 Mg Tablet.) 324 mg PO DAILY [facility] Last Admin: 12/06/23 07:49 Dose: 324 mg Documented By: DINAH Fluticasone Propionate (Fluticasone Propionate 250 Mcg Blst.W.Dev) 1 puff INHALE RBID [facility] Last Admin: 12/06/23 08:08 Dose: 1 puff Documented By: SEBASTIEN Folic Acid (Folic Acid 1 Mg Tablet) 1 mg PO DAILY [facility] Last Admin: 12/06/23 07:49 Dose: 1 mg Documented By: DINAH Glucose (Glucose Gel 15 Gm Gel..Gram.) 15 gm PO Q15M PRN; Protocol PRN Reason: per Hypoglycemia Standing Ord. Clindamycin Phosphate (Cleocin) 600 mg in 50 mls @ 100 mls/hr IV Q8H [facility] Last Infusion: 12/06/23 02:30 Dose: Infused Documented By: URSULA Levofloxacin (Levaquin) 750 mg in 150 mls @ 100 mls/hr IV Q48H [facility] Dextrose (D10) 250 mls @ 750 mls/hr IV Q15M PRN; Protocol PRN Reason: per Hypoglycemia Standing Ord. Last Admin: 12/06/23 07:50 Dose: 750 mls/hr Documented By: DINAH Dextrose/Sodium Chloride (D5ns) 1,000 mls @ 80 mls/hr IVCONT .[id number] [facility] Last Admin: 12/06/23 08:46 Dose: Not Given Documented By: DINAH Non-Admin Reason: Off Unit: Surgery Imipramine HCl (Imipramine Hcl 50 Mg Tablet) 50 mg PO BEDTIME PRN PRN Reason: Constipation Insulin Glargine (Insulin Glargine,Hum.Rec.Anlog 100 Unit/Ml 10 Ml Vial) 12 unit SUBCUT BEDTIME [facility] Last Admin: 12/05/23 20:22 Dose: 12 unit Documented By: URSULA Insulin Human Lispro (Insulin Lispro 100 Unit/Ml 3 Ml Vial) 0 unit SUBCUT QIDACHS [facility]; Protocol Last Admin: 12/06/23 07:44 Dose: Not Given Documented By: DINAH Non-Admin Reason: NPO Loratadine (Loratadine 10 Mg Tablet) 10 mg PO DAILY [facility] Last Admin: 12/06/23 07:49 Dose: 10 mg Documented By: DINAH Magnesium Hydroxide (Milk Of Magnesia 30 Ml Oral.Susp) 30 ml PO DAILY PRN PRN Reason: Constipation Melatonin (Melatonin 3 Mg Tablet) 6 mg PO BEDTIME PRN PRN Reason: Insomnia Last Admin: 12/05/23 20:06 Dose: 6 mg Documented By: URSULA Omeprazole (Omeprazole 20 Mg Capsule.Dr) 20 mg PO DAILY@0630 [facility] Last Admin: 12/06/23 06:36 Dose: 20 mg Documented By: URSULA Oxcarbazepine (Oxcarbazepine 150 Mg Tablet) 150 mg PO BID PRN PRN Reason: Restless Leg(S) Last Admin: 12/05/23 20:06 Dose: 150 mg Documented By: URSULA Oxycodone HCl (Oxycodone Hcl Immed Release 5 Mg Tablet) 5 mg PO Q6H PRN PRN Reason: Pain, Moderate(Pain Scale 4-6) Last Admin: 12/06/23 01:59 Dose: 5 mg Documented By: URSULA Senna (Sennosides 8.6 Mg Tablet) 17.2 mg PO BEDTIME [facility] Last Admin: 12/05/23 20:06 Dose: 17.2 mg Documented By: URSULA Sertraline HCl (Sertraline Hcl 50 Mg Tablet) 50 mg PO DAILY [facility] Last Admin: 12/06/23 07:49 Dose: 50 mg Documented By: DINAH Sodium Chloride (0.9 % Sodium Chloride Flush 3 Ml Syringe) 3 ml IVFLUSH QSHIFT [facility] Last Admin: 12/06/23 07:49 Dose: 3 ml Documented By: DINAH Topiramate (Topiramate 100 Mg Tablet) 100 mg PO BID [facility] Last Admin: 12/06/23 07:49 Dose: 100 mg Documented By: DINAH Labs 12/06/23 07:47 12/06/23 07:47 Labs: Laboratory Results - last 24 hr 12/05/23 12/05/23 12/05/23 07:53 10:07 10:09 MCV 85.3 MCH 27.9 MCHC 32.7 RDW 15.3 Plt Count 151 L MPV 9.2 L Absolute Nucleated RBC 0.000 Nucleated RBC % (auto) 0.0 Neutrophils % (Manual) Cancelled 47 Band Neutrophils % Cancelled 1 L Lymphocytes % (Manual) Cancelled 46 H Atypical Lymphs % (Man) Cancelled Monocytes % (Manual) Cancelled 5 Eosinophils % (Manual) Cancelled Basophils % (Manual) Cancelled 1 Metamyelocytes % Cancelled Myelocytes % Cancelled Promyelocytes % Cancelled Blast Cells % (Manual) Cancelled Plasma Cell % (Manual) Cancelled Abs Neuts (Manual) Cancelled 1.1 L Lymphocytes # (Manual) Cancelled 1.1 L Atyp Lymphs # (Manual) Cancelled Monocytes # (Manual) Cancelled 0.1 Eosinophils # (Manual) Cancelled Basophils # (Manual) Cancelled Metamyelocytes # Cancelled Myelocytes # Cancelled Promyelocytes # Cancelled Blast Cells # Cancelled Plasma Cell # (Manual) Cancelled Nucleated RBCs Cancelled Differential Comment Cancelled Hypersegmented Neuts Cancelled Smudge Cells Cancelled Toxic Granulation Cancelled Toxic Vacuolation Cancelled Dohle Bodies Cancelled Sachin Rods Cancelled WBC Morphology Comment Cancelled Platelet Estimate Cancelled NORMAL Large Platelets Cancelled Giant Platelets Cancelled Plt Morphology Comment Cancelled NORMAL RBC Morphology Cancelled NOTED Polychromasia Cancelled Hypochromasia Cancelled Basophilic Stippling Cancelled Microcytosis Cancelled Macrocytosis Cancelled Spherocytes Cancelled 3+ (>5) Pappenheimer Bodies Cancelled Sickle Cells Cancelled Target Cells Cancelled Tear Drop Cells Cancelled Ovalocytes Cancelled Stomatocytes Cancelled [place] Bodies Cancelled Yue Cells Cancelled 1+ (0-2) Acanthocytes (Spur) Cancelled Rouleaux Cancelled Schistocytes Cancelled ESR 123 H Absolute Retic Cancelled 0.020 L Percent Retic Cancelled 0.8 Immature Retic Fraction Cancelled 14.9 Retic Hgb Equivalent Cancelled 19.2 L Anion Gap Estim Creat Clear Calc Estimated GFR POC Glucose Random Glucose Haptoglobin Calcium Direct Bilirubin < 0.2 Lactate Dehydrogenase 174 Blood Type A Positive Antibody Screen NEGATIVE Crossmatch See Detail 12/05/23 12/05/23 12/05/23 10:54 16:24 20:15 MCV MCH MCHC RDW Plt Count MPV Absolute Nucleated RBC Nucleated RBC % (auto) Neutrophils % (Manual) Band Neutrophils % Lymphocytes % (Manual) Atypical Lymphs % (Man) Monocytes % (Manual) Eosinophils % (Manual) Basophils % (Manual) Metamyelocytes % Myelocytes % Promyelocytes % Blast Cells % (Manual) Plasma Cell % (Manual) Abs Neuts (Manual) Lymphocytes # (Manual) Atyp Lymphs # (Manual) Monocytes # (Manual) Eosinophils # (Manual) Basophils # (Manual) Metamyelocytes # Myelocytes # Promyelocytes # Blast Cells # Plasma Cell # (Manual) Nucleated RBCs Differential Comment Hypersegmented Neuts Smudge Cells Toxic Granulation Toxic Vacuolation Dohle Bodies Sachin Rods WBC Morphology Comment Platelet Estimate Large Platelets Giant Platelets Plt Morphology Comment RBC Morphology Polychromasia Hypochromasia Basophilic Stippling Microcytosis Macrocytosis Spherocytes Pappenheimer Bodies Sickle Cells Target Cells Tear Drop Cells Ovalocytes Stomatocytes [place] Bodies Edmondson Cells Acanthocytes (Spur) Rouleaux Schistocytes ESR Absolute Retic Percent Retic Immature Retic Fraction Retic Hgb Equivalent Anion Gap Estim Creat Clear Calc Estimated GFR POC Glucose 110 106 Random Glucose Haptoglobin 268 Calcium Direct Bilirubin Lactate Dehydrogenase Blood Type Antibody Screen Crossmatch 12/06/23 12/06/23 07:19 07:47 MCV 85.7 MCH 28.7 MCHC 33.5 RDW 14.9 Plt Count 144 L MPV 8.5 L Absolute Nucleated RBC 0.000 Nucleated RBC % (auto) 0.0 Neutrophils % (Manual) Band Neutrophils % Lymphocytes % (Manual) Atypical Lymphs % (Man) Monocytes % (Manual) Eosinophils % (Manual) Basophils % (Manual) Metamyelocytes % Myelocytes % Promyelocytes % Blast Cells % (Manual) Plasma Cell % (Manual) Abs Neuts (Manual) Lymphocytes # (Manual) Atyp Lymphs # (Manual) Monocytes # (Manual) Eosinophils # (Manual) Basophils # (Manual) Metamyelocytes # Myelocytes # Promyelocytes # Blast Cells # Plasma Cell # (Manual) Nucleated RBCs Differential Comment Hypersegmented Neuts Smudge Cells Toxic Granulation Toxic Vacuolation Dohle Bodies Sachin Rods WBC Morphology Comment Platelet Estimate Large Platelets Giant Platelets Plt Morphology Comment RBC Morphology Polychromasia Hypochromasia Basophilic Stippling Microcytosis Macrocytosis Spherocytes Pappenheimer Bodies Sickle Cells Target Cells Tear Drop Cells Ovalocytes Stomatocytes [place] Bodies [place] Cells Acanthocytes (Spur) Rouleaux Schistocytes ESR Absolute Retic Percent Retic Immature Retic Fraction Retic Hgb Equivalent Anion Gap 12 Estim Creat Clear Calc 49.4 Estimated GFR > 60 POC Glucose 76 Random Glucose 77 Haptoglobin Calcium 9.1 Direct Bilirubin Lactate Dehydrogenase Blood Type Antibody Screen Crossmatch Assessment and Plan (1) Hyponatremia: Status: Acute (2) Cellulitis: Status: Acute (3) Anemia: Status: Acute Plan 63 yo female for cat bite + cellulitis requiring IV abx. here w/ right hand pain/ swelling/ redness s/p cat bite 3 days ago. right hand /foream area cellulitis associtedwith cat bite: No fever, tachycardia /tachypnea resolved. wbc slightly trending up. elevated esr/crp, lactic acid normal blood cultures sent no sepsis xray- mild generalized soft tissue swelling throughout the wrist forearm/hand/wrist region. plan: on levaquin/clindamycin (intiated on 12/05/23), Id eval, surgery -in am evaluation in the morning for surgical wash out in the OR. keep npo past midnight dm without hypoglycemia (asymptomatic) : fs with coverage hab1c levels added d5ns until npo. anemia normocytic : denies any gross bleed or melena anemia workup, fobt type and screen, 1 prbc (12/05/23) less likely hemolysis -retic count boderline low, ldh normal,haptoglobin levels pendin peripheral smear -no much schicytocytes ,some spherocytes -prelim. h/h is aroun8 ( her h/h flactauating around 8 since 2020, fobt neg in 2020) possible hypovolemic hyponatremia urine and serum osmoloarities both low urine sodium 35 patient was given ivf in ed sodium imrpoving Asthma : mild intermittent continue prn albuterol. HTN- continue amlodipine HLD- continue statin ckd 3: stable. seizure hx : on topiramate . dvt prophylax : mech devices due to anemia . ongoing need for hospitalisation- considering cellulitis-and IV antibiotics, might need OR washout, renal function electrolyte monitoring for hyponatremia, further anemia workup and possible transfusion and H&H monitoring. Quality Stroke Does the patient have a stroke diagnosis?: No VTE Prior VTE?: No VTE Risk Level:: Medical - moderate - high VTE Device Contraindication: N/A - Device Ordered VTE Drug Contraindication: N/A - Med Ordered
[2023-12-06] MEDS: Dextrose 5 % and 0.9 % NaCl 1,000 ML 80 ML IVCONT (10:52)
[2023-12-06 11:11] LABS: Glucose, Whole Blood 109 mg/dL (60-115)
[2023-12-06] MEDS: levoFLOXacin/D5W 750 MG/150 ML PIGGYBACK 100 MG IV (11:42)
[2023-12-06 12:35] LABS: Iron 87 mcg/dL (30-160); Percent Iron Saturation 58 % (15-50); Total Iron Binding Capacity 149 mcg/dL (228-428); Unsaturated Iron Binding 62 ug/dL
--- NOTE | 2023-12-06 16:16 | MHC.CM.PN ---
PT REPORTS SHE LIVES ALONE AND IS SUPPOSED TO HAVE RADIO ENGINEER SERVICES SHE SAYS SHE IS WORKING ON GETTING A NEW RADIO ENGINEER AND HAS SOMEONE THAT IS SUPPOSED TO START SOON PT USES AN ELECTRIC W/C FOR ALL MOBILITY BUT CAN TRANSFER HCP ON FILE PCP: [facility] DELIVERED DCP: HOME PT SAYS SHE WILL TRANSPORT HERSELF HOME VIA HER W/C
[2023-12-06 16:34] LABS: Glucose, Whole Blood 118 mg/dL (60-115)
[2023-12-06] MEDS: amLODIPine Besylate 2.5 MG TABLET PO (20:20)
[2023-12-06] MEDS: Insulin Glargine,Hum.rec.anlog 100 UNIT/ML 10 ML VIAL 12 UNIT SUBCUT (20:20)
[2023-12-06] MEDS: Acetaminophen 325 MG TABLET 975 MG PO (20:20)
[2023-12-06] MEDS: Sennosides 8.6 MG TABLET 17.2 MG PO (20:21)
[2023-12-06] MEDS: Atorvastatin Calcium 40 MG TABLET PO (20:21)
[2023-12-06 20:57] LABS: Glucose, Whole Blood 103 mg/dL (60-115)
[2023-12-07] VITALS (8 sets, daily range): BP systolic 110–131; BP diastolic 56–61; PULSE 80–90; RESP 16–20; TEMP 36.1–36.4; O2SAT 93–99
[2023-12-07] MEDS: Clindamycin Phosphate/D5W 600 MG/50 ML PIGGYBACK 100 MG IV ×3 (00:19→18:10)
[2023-12-07] MEDS: Acetaminophen 325 MG TABLET 975 MG PO ×3 (00:19→11:44)
[2023-12-07] MEDS: oxyCODONE HCl Immed Release 5 MG TABLET PO ×3 (00:19→11:44)
[2023-12-07] MEDS: 0.9 % Sodium Chloride Flush 3 ML SYRINGE IVFLUSH ×2 (00:24→07:49)
--- NOTE | 2023-12-07 03:44 | PC.NURSE ---
Pt was given a round of pain medications, including oxycodone and tylenol at midnight, although patient was due at 2am. Dr. Montgomery was contacted to ok dose prior to 6 hour interval.
[2023-12-07] MEDS: Omeprazole 20 MG CAPSULE.DR PO (05:46)
[2023-12-07] MEDS: Topiramate 100 MG TABLET PO ×2 (07:44→21:01)
[2023-12-07] MEDS: Ferrous Sulfate 324 MG TABLET.DR PO (07:44)
[2023-12-07] MEDS: Folic Acid 1 MG TABLET PO (07:44)
[2023-12-07] MEDS: Sertraline HCL 50 MG TABLET PO (07:44)
[2023-12-07] MEDS: Loratadine 10 MG TABLET PO (07:45)
[2023-12-07] MEDS: Calcium + Vitamin D 250 MG TABLET PO ×2 (07:45→21:01)
[2023-12-07 07:52] LABS: Glucose, Whole Blood 99 mg/dL (60-115)
[2023-12-07] MEDS: Fluticasone Propionate 250 MCG BLST.W.DEV 1 PUFF INHALE ×2 (08:01→19:22)
[2023-12-07 09:37] LABS: Hematocrit 23.9 % (37.0-47.0); Hemoglobin 7.8 g/dl (12.0-16.0)
--- NOTE | 2023-12-07 11:16 | MHC.CM.PN ---
Per ROUNDS discussion, Patient is not yet medically cleared for dc (Cellulitis/cultures pending, blood counts low); home is the goal and CM will continue to follow.
[2023-12-07 11:43] LABS: Glucose, Whole Blood 95 mg/dL (60-115)
--- NOTE | 2023-12-07 12:25 | P.PNIM_ITS ---
Subjective Subjective Date of Service: 12/07/23 Interval History: right hand and arm cellulitis Review of Systems hand cellulitis seems somewhat improving able to move her fingers better no fevers Physical Exam 2 Vital Signs: Vital Signs: Last Vital Signs Temp 97.1 F 12/07/23 11:35 Pulse 86 12/07/23 11:35 Resp 16 12/07/23 11:35 BP 125/61 12/07/23 11:35 Pulse Ox 98 12/07/23 11:35 O2 Del Method Room Air 12/07/23 11:35 BMI result Body Mass Index 29.4 Appearance: Alert.? Oriented X3. cvs: rrr, [id number] . res: clear to auscultation ,no rhonchii or wheezing abd: no rebound or guarding ,nt, bs present. ext pulses present , no cyanosis . MS : right hand /wrist -wrist area wrapped ,but able to move her fingers . neuro: axo3 , nonfocal. Objective Data Active Medications Acetaminophen (Acetaminophen 325 Mg Tablet) 975 mg PO Q6H PRN PRN Reason: Pain, Mild (Pain Scale 1-3), fever or headache Last Admin: 12/07/23 11:44 Dose: 975 mg Documented By: SABRINA Albuterol Sulfate (Albuterol Sulfate 90 Mcg 8 Gm Inhaler) 2 puff INHALE QID PRN PRN Reason: Wheezing Amlodipine Besylate (Amlodipine Besylate 2.5 Mg Tablet) 2.5 mg PO BEDTIME [facility]; Protocol Last Admin: 12/06/23 20:20 Dose: 2.5 mg Documented By: ANNA Atorvastatin Calcium (Atorvastatin Calcium 40 Mg Tablet) 40 mg PO BEDTIME [facility] Last Admin: 12/06/23 20:21 Dose: 40 mg Documented By: ANNA Bacitracin (Bacitracin Oint 0.9 Gm Packet) 1 appl TOPICAL TID [facility]; Protocol Last Admin: 12/07/23 07:46 Dose: Not Given Documented By: SABRINA Non-Admin Reason: prev I&D, arm is bandaged Calcium Carbonate (Calcium Carbonate 750 Mg Tab.Chew) 750 mg PO Q4H PRN PRN Reason: Heartburn Calcium Carbonate/Cholecalciferol (Calcium + Vitamin D 250 Mg Tablet) 250 mg PO BID [facility] Last Admin: 12/07/23 07:45 Dose: 250 mg Documented By: SABRINA Ferrous Sulfate (Ferrous Sulfate 324 Mg Tablet.) 324 mg PO DAILY [facility] Last Admin: 12/07/23 07:44 Dose: 324 mg Documented By: SABRINA Fluticasone Propionate (Fluticasone Propionate 250 Mcg Blst.W.Dev) 1 puff INHALE RBID [facility] Last Admin: 12/07/23 08:01 Dose: 1 puff Documented By: NELLIE Folic Acid (Folic Acid 1 Mg Tablet) 1 mg PO DAILY [facility] Last Admin: 12/07/23 07:44 Dose: 1 mg Documented By: SABRINA Glucose (Glucose Gel 15 Gm Gel..Gram.) 15 gm PO Q15M PRN; Protocol PRN Reason: per Hypoglycemia Standing Ord. Clindamycin Phosphate (Cleocin) 600 mg in 50 mls @ 100 mls/hr IV Q8H [facility] Last Infusion: 12/07/23 11:31 Dose: Infused Documented By: SABRINA Levofloxacin (Levaquin) 750 mg in 150 mls @ 100 mls/hr IV Q48H [facility] Last Infusion: 12/06/23 13:38 Dose: Infused Documented By: DINAH Dextrose (D10) 250 mls @ 750 mls/hr IV Q15M PRN; Protocol PRN Reason: per Hypoglycemia Standing Ord. Last Infusion: 12/06/23 09:39 Dose: Infused Documented By: DINAH Imipramine HCl (Imipramine Hcl 50 Mg Tablet) 50 mg PO BEDTIME PRN PRN Reason: Constipation Insulin Glargine (Insulin Glargine,Hum.Rec.Anlog 100 Unit/Ml 10 Ml Vial) 12 unit SUBCUT BEDTIME [facility] Last Admin: 12/06/23 20:20 Dose: 12 unit Documented By: ANNA Insulin Human Lispro (Insulin Lispro 100 Unit/Ml 3 Ml Vial) 0 unit SUBCUT QIDACHS [facility]; Protocol Last Admin: 12/07/23 11:02 Dose: Not Given Documented By: ASBRINA Non-Admin Reason: No Insulin Coverage Loratadine (Loratadine 10 Mg Tablet) 10 mg PO DAILY [facility] Last Admin: 12/07/23 07:45 Dose: 10 mg Documented By: SABRINA Magnesium Hydroxide (Milk Of Magnesia 30 Ml Oral.Susp) 30 ml PO DAILY PRN PRN Reason: Constipation Melatonin (Melatonin 3 Mg Tablet) 6 mg PO BEDTIME PRN PRN Reason: Insomnia Last Admin: 12/05/23 20:06 Dose: 6 mg Documented By: URSULA Omeprazole (Omeprazole 20 Mg Capsule.Dr) 20 mg PO DAILY@0630 [facility] Last Admin: 12/07/23 05:46 Dose: 20 mg Documented By: ANNA Oxcarbazepine (Oxcarbazepine 150 Mg Tablet) 150 mg PO BID PRN PRN Reason: Restless Leg(S) Last Admin: 12/05/23 20:06 Dose: 150 mg Documented By: URSULA Oxycodone HCl (Oxycodone Hcl Immed Release 5 Mg Tablet) 5 mg PO Q6H PRN PRN Reason: Pain, Moderate(Pain Scale 4-6) Last Admin: 12/07/23 11:44 Dose: 5 mg Documented By: SABRINA Senna (Sennosides 8.6 Mg Tablet) 17.2 mg PO BEDTIME [facility] Last Admin: 12/06/23 20:21 Dose: 17.2 mg Documented By: ANNA Sertraline HCl (Sertraline Hcl 50 Mg Tablet) 50 mg PO DAILY [facility] Last Admin: 12/07/23 07:44 Dose: 50 mg Documented By: SABRINA Sodium Chloride (0.9 % Sodium Chloride Flush 3 Ml Syringe) 3 ml IVFLUSH QSHIFT [facility] Last Admin: 12/07/23 07:49 Dose: 3 ml Documented By: SABRINA Topiramate (Topiramate 100 Mg Tablet) 100 mg PO BID [facility] Last Admin: 12/07/23 07:44 Dose: 100 mg Documented By: SABRINA Labs 12/07/23 08:35 12/06/23 07:47 Labs: Laboratory Results - last 24 hr 12/05/23 12/06/23 12/06/23 10:09 07:47 16:28 Smear Path Review SEE NOTE POC Glucose 118 H Iron 87 TIBC 149 L % Saturation 58 H Unsat Iron Binding 62 12/06/23 12/07/23 12/07/23 20:48 07:40 10:58 Smear Path Review POC Glucose 103 99 95 Iron TIBC % Saturation Unsat Iron Binding Microbiology Microbiology Results: Microbiology 12/05/23 07:53 Blood Culture - Preliminary Blood - Venous No growth after 48 hours. 12/05/23 07:53 Blood Culture - Preliminary Blood - Venous No growth after 48 hours. 12/06/23 Unknown Gram Stain - Final Wrist Right Routine Culture - Preliminary No growth to date. 12/06/23 Unknown Gram Stain - Final Wrist Right Routine Culture - Preliminary No growth to date. Assessment and Plan (1) Hyponatremia: Status: Acute (2) Cellulitis: Status: Acute (3) Anemia: Status: Acute Plan 63 yo female for cat bite + cellulitis requiring IV abx. here w/ right hand pain/ swelling/ redness s/p cat bite 3 days ago. right hand /foream area cellulitis associtedwith cat bite: No fever, tachycardia /tachypnea resolved. wbc slightly trending up. elevated esr/crp, lactic acid normal blood cultures neg@24hrs no sepsis xray- mild generalized soft tissue swelling throughout the wrist forearm/hand/wrist region. plan: on levaquin/clindamycin (intiated on 12/05/23) patient received rabies immunoglobulin on admission,also her vacccine (added with infusion center )-consider checking with infusion center before discharge. ortho -i&D yesterday-continue iv antibiotics for today Id follow up for duration of antibiotics dm : fs with coverage hab1c levels in am anemia normocytic/pancytopenia :unclear etiology,chronic slightly worse from baseline( ?may be ckd and cellulitis might be contributing) denies any gross bleed or melena fobt need to send when has bm anemia workup-iron panel seems fine.added b12 and folate levels. type and screen, 1 prbc (12/05/23) less likely hemolysis -retic count boderline low, ldh normal,haptoglobin levels pendin peripheral smear -no much schicytocytes ,some spherocytes -prelim(path review pending) h/h is aroun8 ( her h/h flactauating since 2020, fobt neg in 2020). if allworkup negative might benefit from outpatient hematology followup. possible hypovolemic hyponatremia urine and serum osmoloarities both low urine sodium 35 patient was given ivf in ed sodium imrpoving Asthma : mild intermittent continue prn albuterol. HTN- continue amlodipine HLD- continue statin ckd 3: stable. seizure hx : on topiramate . dvt prophylax : mech devices due to anemia . ongoing need for hospitalisation- considering cellulitis-and IV antibiotics, might need OR washout, renal function electrolyte monitoring for hyponatremia, further anemia workup and possible transfusion and H&H monitoring. Quality Stroke Does the patient have a stroke diagnosis?: No VTE Prior VTE?: No VTE Risk Level:: Medical - moderate - high VTE Device Contraindication: N/A - Device Ordered VTE Drug Contraindication: N/A - Med Ordered
--- NOTE | 2023-12-07 13:46 | HO.POSTANES ---
Post Anesthesia Evaluation Post Anesthesia Evaluation Date of Service: 12/07/23 Vital Signs: Vital Signs Temp Pulse Resp BP Pulse Ox O2 Del Method 12/07/23 11:35 97.1 F 86 16 125/61 98 Room Air 12/07/23 08:01 81 17 12/07/23 08:00 97 F 90 16 110/56 L 99 Room Air 12/07/23 04:00 97.2 F 81 17 130/58 L 98 Room Air Anesthesia: General Mental Status: Awake Pain Control: Satisfactory Nausea/Vomiting: None Hydration: Adequate Anesthesia-Related Issues: No Anes. Related Issues
--- NOTE | 2023-12-07 13:55 | P.CDIM_ITS ---
PROVIDER RESPONSE TEXT: To clarify, the appropriate diagnosis supported by the clinical indicators: Other (explain): chf ( unclear etiology, no echo available) QUERY TEXT: PHYSICIAN'S DOCUMENTATION REQUEST Date of Query: 12/07/2023 10:04 AM EDT Patient Name: Vikki Willis Admit Date: 12/05/2023 Dear Ester Tang MD, A review of the medical record indicates additional documentation may be needed. Please review below and update the documentation accordingly. Clinical Indicators: Progress notes within the body of assessment - [facility] Congestive heart failure Home medication: Furosemide 1.5 tab PO QAM CKD/HTN Please provide further specificity regarding the most likely type and acuity of CHF: Systolic Please specify if Acute, Chronic, or Acute on chronic, or Unable to determine Diastolic Please specify if Acute, Chronic, or Acute on chronic, or Unable to determine Combined Systolic/Diastolic Please specify if Acute, Chronic, or Acute on chronic, or Unable to determine Other (explain) Clinically unable to determine (explain) Thank you, Donna Brasher, CCS, CDIS Use of terms such as suspected, likely, concern for, or probable (associated with a specific diagnosi s that is being evaluated, monitored, or treated as if it exists) are acceptable and can be coded in the inpatient se tting, when documented at the time of discharge. Please use your independent medical judgment in providing your response. THIS QUERY IS PART OF THE PERMANENT MEDICAL RECORD
[2023-12-07 16:45] LABS: Glucose, Whole Blood 103 mg/dL (60-115)
[2023-12-07] MEDS: Atorvastatin Calcium 40 MG TABLET PO (21:01)
[2023-12-07] MEDS: Sennosides 8.6 MG TABLET 17.2 MG PO (21:01)
[2023-12-07] MEDS: Insulin Glargine,Hum.rec.anlog 100 UNIT/ML 10 ML VIAL 12 UNIT SUBCUT (21:01)
[2023-12-07] MEDS: amLODIPine Besylate 2.5 MG TABLET PO (21:02)
--- NOTE | 2023-12-07 21:04 | PM.PNORT ---
Subjective Subjective Date of Service: 12/07/23 Interval history: Patient is a 63 YO F Admitted for cellulitis and abscess of R hand from cat bite POD 1 s/p I&D of right hand Patient resting comfortably in wheelchair Reports she is feeling much better Pain well managed Inquires about discharge No other complaints or concerns Physical Exam Vital Signs: Vital Signs: Last Vital Signs Temp 97.6 F 12/07/23 20:00 Pulse 90 12/07/23 20:00 Resp 20 12/07/23 20:00 BP 126/59 L 12/07/23 21:02 Pulse Ox 96 12/07/23 20:00 O2 Del Method Room Air 12/07/23 20:00 BMI result Body Mass Index 29.4 Extrem: Other: Patient is alert, oriented, and in no acute distress. Neuro: Patient reports normal sensation to the tips of all digits of the R hand Vascular: Cap refill brisk Pain: Patient reports very mild tenderness to palpation about the incision sites ROM: With encouragement, patient is able to get close to a closed fist Skin: open incision sites noted on the dorsal hand No active drainage at this time, but noted on dressing General: Improving erythema and edema about the dorsal hand No ecchymosis Psych: Appears grossly normal Affect normal Attitude cooperative Procedures Date of Service Date of Service: 12/07/23 Progress Note: A&P Assessment and plan (1) Abscess of right forearm: Status: Acute Plan 1. Abscess of R forearm s/p I&D DOS 12/06/23 Patient appears to be recovering well postoperatively Patient is educated about the typical recovery course Dressing changed today, drains pulled Patient is educated that close follow up in our office is very important Patient is educated to keep the dressing clean, dry, intact, with daily dressing changes Patient is amenable to this plan COntinue with IV abx and all other recommendations per medicine Time Spent With Patient Time: Total time managing care of this patient today ____ minutes. Quality Stroke Does the patient have a stroke diagnosis?: No VTE Prior VTE?: No VTE Risk Level:: Medical - moderate - high VTE Device Contraindication: N/A - Device Ordered VTE Drug Contraindication: N/A - Med Ordered
[2023-12-07 21:19] LABS: Glucose, Whole Blood 110 mg/dL (60-115)
[2023-12-08] VITALS (10 sets, daily range): BP systolic 120–149; BP diastolic 53–64; PULSE 74–109; RESP 16–20; TEMP 36.1–36.8; O2SAT 95–98
[2023-12-08] MEDS: Clindamycin Phosphate/D5W 600 MG/50 ML PIGGYBACK 100 MG IV ×3 (01:58→18:44)
[2023-12-08] MEDS: 0.9 % Sodium Chloride Flush 3 ML SYRINGE IVFLUSH ×3 (01:59→15:48)
[2023-12-08] MEDS: Omeprazole 20 MG CAPSULE.DR PO (06:04)
[2023-12-08 06:22] LABS: Hemoglobin 7.8 g/dl (12.0-16.0); Mean Corpuscular HGB Conc 32.5 g/dl (31.0-35.0); Mean Corpuscular Hemoglobin 28.3 pg (27.0-33.0); Mean Platelet Volume 8.8 fL (9.4-12.3); Platelet Count 174 X10*3/uL (160-400); Red Blood Count 2.76 X10*6/uL (4.20-5.50); Red Cell Distribution Width 15.5 % (11.0-16.0); White Blood Count 2.6 X10*3/uL (4.8-10.8)
[2023-12-08 06:34] LABS: Estimated Average Glucose 103 mg/dL; Hemoglobin A1c % 5.2 % (<6.0)
[2023-12-08 06:40] LABS: Anion Gap 13 (12-20); Blood Urea Nitrogen 25 mg/dL (9-16); Calcium 9.6 mg/dL (8.4-10.2); Carbon Dioxide 20 mmol/L (22-29); Chloride 109 mmol/L (96-108); Creatinine Clr Calc Pharmacy 43.3; Estimated Glomerular Filt Rate 53; Glucose Random 80 mg/dL (60-115); Potassium 4.8 mmol/L (3.3-5.1); Sodium 137 mmol/L (135-145)
[2023-12-08 07:15] LABS: Folate 14.1 ng/mL (> or = 4.0); Vitamin B12 460 pg/mL (200-900)
[2023-12-08] MEDS: Fluticasone Propionate 250 MCG BLST.W.DEV 1 PUFF INHALE ×2 (07:37→19:48)
[2023-12-08 08:07] LABS: Glucose, Whole Blood 74 mg/dL (60-115)
[2023-12-08] MEDS: Ferrous Sulfate 324 MG TABLET.DR PO (08:20)
[2023-12-08] MEDS: Loratadine 10 MG TABLET PO (08:20)
[2023-12-08] MEDS: Calcium + Vitamin D 250 MG TABLET PO ×2 (08:20→20:39)
[2023-12-08] MEDS: Topiramate 100 MG TABLET PO ×2 (08:20→20:40)
[2023-12-08] MEDS: Folic Acid 1 MG TABLET PO (08:20)
[2023-12-08] MEDS: Sertraline HCL 50 MG TABLET PO (08:20)
--- NOTE | 2023-12-08 09:56 | P.PNIM_ITS ---
Subjective Subjective Date of Service: 12/08/23 Interval History: post day 1 for i&d Physical Exam 2 Vital Signs: Vital Signs: Last Vital Signs Temp 97 F 12/08/23 08:00 Pulse 85 12/08/23 08:00 Resp 16 12/08/23 08:00 BP 121/58 L 12/08/23 08:00 Pulse Ox 95 12/08/23 08:00 O2 Del Method Room Air 12/08/23 08:00 BMI result Body Mass Index 29.4 General: AO X 3, no acute distress Resp: CTA bilateral CVS: S1,S2,RRR GI: +BS, NT, no distention Skin:right hand dressing in place Neuro: motor grossly intact Psych: appropriate affect Objective Data Active Medications Acetaminophen (Acetaminophen 325 Mg Tablet) 975 mg PO Q6H PRN PRN Reason: Pain, Mild (Pain Scale 1-3), fever or headache Last Admin: 12/07/23 11:44 Dose: 975 mg Documented By: SABRINA Albuterol Sulfate (Albuterol Sulfate 90 Mcg 8 Gm Inhaler) 2 puff INHALE QID PRN PRN Reason: Wheezing Amlodipine Besylate (Amlodipine Besylate 2.5 Mg Tablet) 2.5 mg PO BEDTIME [facility]; Protocol Last Admin: 12/07/23 21:02 Dose: 2.5 mg Documented By: ANNA Atorvastatin Calcium (Atorvastatin Calcium 40 Mg Tablet) 40 mg PO BEDTIME [facility] Last Admin: 12/07/23 21:01 Dose: 40 mg Documented By: ANNA Bacitracin (Bacitracin Oint 0.9 Gm Packet) 1 appl TOPICAL TID [facility]; Protocol Last Admin: 12/08/23 08:22 Dose: Not Given Documented By: BERNARDO Non-Admin Reason: drsg chg by YUDITH this am, arm is bandaged Calcium Carbonate (Calcium Carbonate 750 Mg Tab.Chew) 750 mg PO Q4H PRN PRN Reason: Heartburn Calcium Carbonate/Cholecalciferol (Calcium + Vitamin D 250 Mg Tablet) 250 mg PO BID [facility] Last Admin: 12/08/23 08:20 Dose: 250 mg Documented By: BERNARDO Ferrous Sulfate (Ferrous Sulfate 324 Mg Tablet.) 324 mg PO DAILY [facility] Last Admin: 12/08/23 08:20 Dose: 324 mg Documented By: BERNARDO Fluticasone Propionate (Fluticasone Propionate 250 Mcg Blst.W.Dev) 1 puff INHALE RBID [facility] Last Admin: 12/08/23 07:37 Dose: 1 puff Documented By: DONNA Folic Acid (Folic Acid 1 Mg Tablet) 1 mg PO DAILY [facility] Last Admin: 12/08/23 08:20 Dose: 1 mg Documented By: BERNARDO Glucose (Glucose Gel 15 Gm Gel..Gram.) 15 gm PO Q15M PRN; Protocol PRN Reason: per Hypoglycemia Standing Ord. Clindamycin Phosphate (Cleocin) 600 mg in 50 mls @ 100 mls/hr IV Q8H [facility] Last Infusion: 12/08/23 02:45 Dose: Infused Documented By: ANNA Levofloxacin (Levaquin) 750 mg in 150 mls @ 100 mls/hr IV Q48H [facility] Last Infusion: 12/06/23 13:38 Dose: Infused Documented By: DINAH Dextrose (D10) 250 mls @ 750 mls/hr IV Q15M PRN; Protocol PRN Reason: per Hypoglycemia Standing Ord. Last Infusion: 12/06/23 09:39 Dose: Infused Documented By: DINAH Imipramine HCl (Imipramine Hcl 50 Mg Tablet) 50 mg PO BEDTIME PRN PRN Reason: Constipation Insulin Glargine (Insulin Glargine,Hum.Rec.Anlog 100 Unit/Ml 10 Ml Vial) 12 unit SUBCUT BEDTIME [facility] Last Admin: 12/07/23 21:01 Dose: 12 unit Documented By: ANNA Insulin Human Lispro (Insulin Lispro 100 Unit/Ml 3 Ml Vial) 0 unit SUBCUT QIDACHS [facility]; Protocol Last Admin: 12/08/23 08:34 Dose: Not Given Documented By: BERNARDO Non-Admin Reason: No Insulin Coverage Loratadine (Loratadine 10 Mg Tablet) 10 mg PO DAILY [facility] Last Admin: 12/08/23 08:20 Dose: 10 mg Documented By: BERNARDO Magnesium Hydroxide (Milk Of Magnesia 30 Ml Oral.Susp) 30 ml PO DAILY PRN PRN Reason: Constipation Melatonin (Melatonin 3 Mg Tablet) 6 mg PO BEDTIME PRN PRN Reason: Insomnia Last Admin: 12/05/23 20:06 Dose: 6 mg Documented By: URSULA Omeprazole (Omeprazole 20 Mg Capsule.Dr) 20 mg PO DAILY@0630 [facility] Last Admin: 12/08/23 06:04 Dose: 20 mg Documented By: ANNA Oxcarbazepine (Oxcarbazepine 150 Mg Tablet) 150 mg PO BID PRN PRN Reason: Restless Leg(S) Last Admin: 12/05/23 20:06 Dose: 150 mg Documented By: URSULA Oxycodone HCl (Oxycodone Hcl Immed Release 5 Mg Tablet) 5 mg PO Q6H PRN PRN Reason: Pain, Moderate(Pain Scale 4-6) Last Admin: 12/07/23 11:44 Dose: 5 mg Documented By: SABRINA Senna (Sennosides 8.6 Mg Tablet) 17.2 mg PO BEDTIME [facility] Last Admin: 12/07/23 21:01 Dose: 17.2 mg Documented By: ANNA Sertraline HCl (Sertraline Hcl 50 Mg Tablet) 50 mg PO DAILY [facility] Last Admin: 12/08/23 08:20 Dose: 50 mg Documented By: BERNARDO Sodium Chloride (0.9 % Sodium Chloride Flush 3 Ml Syringe) [facility] Last Admin: 12/08/23 08:20 Dose: 3 ml Documented By: BERNARDO Topiramate (Topiramate 100 Mg Tablet) 100 mg PO BID [facility] Last Admin: 12/08/23 08:20 Dose: 100 mg Documented By: BERNARDO Labs 12/08/23 05:55 12/08/23 05:55 Labs: Laboratory Results - last 24 hr 12/05/23 12/07/23 12/07/23 10:09 10:58 16:36 MCV MCH MCHC RDW Plt Count MPV Absolute Nucleated RBC Nucleated RBC % (auto) Smear Path Review SEE NOTE Anion Gap Estim Creat Clear Calc Estimated GFR POC Glucose 95 103 Random Glucose Estimat Average Glucose Hemoglobin A1c % Calcium Vitamin B12 Folate 12/07/23 12/08/23 12/08/23 20:21 05:55 08:03 MCV 87.0 MCH 28.3 MCHC 32.5 RDW 15.5 Plt Count 174 MPV 8.8 L Absolute Nucleated RBC 0.000 Nucleated RBC % (auto) 0.0 Smear Path Review Anion Gap 13 Estim Creat Clear Calc 43.3 Estimated GFR 53 POC Glucose 110 74 Random Glucose 80 Estimat Average Glucose 103 Hemoglobin A1c % 5.2 Calcium 9.6 Vitamin B12 460 Folate 14.1 Microbiology Microbiology Results: Microbiology 12/06/23 Unknown Gram Stain - Final Wrist Right Routine Culture - Final No growth after 2 days 12/06/23 Unknown Gram Stain - Final Wrist Right Routine Culture - Final No growth after 2 days 12/05/23 07:53 Blood Culture - Preliminary Blood - Venous No growth after 48 hours. 12/05/23 07:53 Blood Culture - Preliminary Blood - Venous No growth after 48 hours. Assessment and Plan (1) Hyponatremia: Status: Acute (2) Cellulitis: Status: Acute (3) Anemia: Status: Acute Plan 63 yo female for cat bite + cellulitis requiring IV abx. here w/ right hand pain/ swelling/ redness s/p cat bite 3 days ago. right hand /foream area cellulitis associtedwith cat bite: -continue levaquin and clinda -s/p I&D 12/06 -dressing changes per surgery -received rabbies vaccine -id folliwing DM--A1C 5.7 -diet controi Acute on chronic anemia, hgb 7 on 12/04 s/p 1 unit of rbc on 12/04--improved outpatient workup mild hyponatremia-resolved Asthma : mild intermittent continue prn albuterol. HTN- continue amlodipine HLD- continue statin ckd 3: stable. seizure hx : on topiramate . [facility] to [facility] . IV Abx for cellulitis of the hand Quality Stroke Does the patient have a stroke diagnosis?: No VTE Prior VTE?: No VTE Risk Level:: Medical - moderate - high VTE Device Contraindication: N/A - Device Ordered VTE Drug Contraindication: N/A - Med Ordered
--- NOTE | 2023-12-08 11:09 | HO.WOUND ---
Wound Consult cancelled 63yr old? admitted to [facility] on 12/05/23 10:25 - See progress notes and H&P for detailed history.? Wound consult placed for Right Hand and wrist wounds. Brief chart review reveals patient is seen and followed by Orthopedic team and topical recommendation in place for Daily dressing changes. Discussed with Dr. Castorena will cancel wound consult and defer to Ortho team. Dr. Castorena will work with ortho to clarify topical orders for direct care team to carry out.
[2023-12-08] MEDS: levoFLOXacin/D5W 750 MG/150 ML PIGGYBACK 100 MG IV (11:55)
[2023-12-08 12:08] LABS: Glucose, Whole Blood 91 mg/dL (60-115)
[2023-12-08 14:08] LABS: OBS Int Ctl Valid YES
[2023-12-08 14:09] LABS: OBS1 NEGATIVE (NEGATIVE)
[2023-12-08] MEDS: Rabies Vaccine, Human Diploid (Imovax) 1 ML VIAL IM (15:48)
[2023-12-08 16:14] LABS: Glucose, Whole Blood 128 mg/dL (60-115)
--- NOTE | 2023-12-08 18:50 | PM.PNORT ---
Subjective Subjective Date of Service: 12/09/23 Interval history: Patient is a 63 YO F Admitted for cellulitis and abscess of R hand from cat bite POD 1 s/p I&D of right hand Patient resting comfortably in wheelchair Reports she is feeling much better Pain well managed Inquires about discharge No other complaints or concerns Physical Exam Vital Signs: Vital Signs: Last Vital Signs Temp 97.8 F 12/08/23 16:00 Pulse 92 12/08/23 16:00 Resp 16 12/08/23 16:00 BP 138/61 12/08/23 16:00 Pulse Ox 97 12/08/23 16:00 O2 Del Method Room Air 12/08/23 16:00 BMI result Body Mass Index 29.4 Extrem: Other: Patient is alert, oriented, and in no acute distress. Neuro: Patient reports normal sensation to the tips of all digits of the R hand Vascular: Cap refill brisk Pain: Patient reports very mild tenderness to palpation about the incision sites ROM: With encouragement, patient is able to get close to a closed fist Skin: open incision sites noted on the dorsal hand No active drainage at this time, but noted on dressing General: Improving erythema and edema about the dorsal hand No ecchymosis Psych: Appears grossly normal Affect normal Attitude cooperative Procedures Date of Service Date of Service: 12/09/23 Progress Note: A&P Assessment and plan (1) Abscess of right forearm: Status: Acute Plan 1. Abscess of R forearm s/p I&D DOS 12/06/23 Patient appears to be recovering well postoperatively Patient is educated about the typical recovery course Dressing changed today Patient is educated that close follow up in our office is very important Patient is educated to keep the dressing clean, dry, intact, with daily dressing changes Patient is amenable to this plan COntinue with IV abx and all other recommendations per medicine Time Spent With Patient Time: Total time managing care of this patient today ____ minutes. Quality Stroke Does the patient have a stroke diagnosis?: No VTE Prior VTE?: No VTE Risk Level:: Medical - moderate - high VTE Device Contraindication: N/A - Device Ordered VTE Drug Contraindication: N/A - Med Ordered
[2023-12-08 20:28] LABS: Glucose, Whole Blood 92 mg/dL (60-115)
[2023-12-08] MEDS: Atorvastatin Calcium 40 MG TABLET PO (20:40)
[2023-12-08] MEDS: amLODIPine Besylate 2.5 MG TABLET PO (20:40)
[2023-12-08] MEDS: Sennosides 8.6 MG TABLET 17.2 MG PO (20:40)
[2023-12-08] MEDS: Insulin Glargine,Hum.rec.anlog 100 UNIT/ML 10 ML VIAL 12 UNIT SUBCUT (22:24)
[2023-12-09] MEDS: oxyCODONE HCl Immed Release 5 MG TABLET PO (00:25)
[2023-12-09] MEDS: Clindamycin Phosphate/D5W 600 MG/50 ML PIGGYBACK 100 MG IV ×2 (02:40→10:45)
[2023-12-09] MEDS: 0.9 % Sodium Chloride Flush 3 ML SYRINGE IVFLUSH ×2 (02:41→08:58)
[2023-12-09 04:00] VITALS: BP 139/64; PULSE 84; RESP 20; TEMP 36.2; O2SAT 99
[2023-12-09] MEDS: Omeprazole 20 MG CAPSULE.DR PO (05:27)
[2023-12-09 06:40] LABS: Hematocrit 25.7 % (37.0-47.0); Hemoglobin 8.3 g/dl (12.0-16.0); Mean Corpuscular HGB Conc 32.3 g/dl (31.0-35.0); Mean Corpuscular Volume 86.8 fL (80.0-98.0); Mean Platelet Volume 8.8 fL (9.4-12.3); Platelet Count 181 X10*3/uL (160-400); Red Blood Count 2.96 X10*6/uL (4.20-5.50); Red Cell Distribution Width 15.6 % (11.0-16.0)
[2023-12-09 07:27] LABS: Glucose, Whole Blood 93 mg/dL (60-115)
[2023-12-09] MEDS: Fluticasone Propionate 250 MCG BLST.W.DEV 1 PUFF INHALE (07:53)
[2023-12-09 07:54] VITALS: PULSE 84; RESP 20; O2SAT 97
[2023-12-09 07:55] VITALS: BP 138/64; PULSE 91; RESP 19; TEMP 36.3; O2SAT 99
--- NOTE | 2023-12-09 08:29 | PM.PNORT ---
Subjective Subjective Date of Service: 12/09/23 Interval history: Patient is a 63 YO F Admitted for cellulitis and abscess of R hand from cat bite POD 3 s/p I&D of right hand Patient resting comfortably in wheelchair Reports she is feeling much better , demonstrates improved range of motion of her right hand Pain well managed, states she does still have some tenderness to palpation, but no pain at baseline Patient states that the plan per Medicine is to discharge her home today No other complaints or concerns Physical Exam Vital Signs: Vital Signs: Last Vital Signs Temp 97.4 F 12/09/23 07:55 Pulse 91 12/09/23 07:55 Resp 19 12/09/23 07:55 BP 138/64 12/09/23 07:55 Pulse Ox 99 12/09/23 07:55 O2 Del Method Room Air 12/09/23 07:55 BMI result Body Mass Index 29.4 Extrem: Other: Patient is alert, oriented, and in no acute distress. Neuro: Patient reports normal sensation to the tips of all digits of the R hand Vascular: Cap refill brisk Pain: Patient reports mild tenderness to palpation about the incision sites ROM: With encouragement, patient is able to get close to a closed fist Skin: open incision sites noted on the dorsal hand No active drainage at this time, but noted on dressing No purulence able to be expressed from the incision site General: Improving erythema and edema about the dorsal hand No ecchymosis Psych: Appears grossly normal Affect normal Attitude cooperative Procedures Date of Service Date of Service: 12/09/23 Progress Note: A&P Assessment and plan (1) Abscess of right forearm: Status: Acute Plan 1. Abscess of R forearm s/p I&D DOS 12/06/23 Patient appears to be recovering well postoperatively Patient is educated about the typical recovery course Dressing changed today Patient is educated that close follow up in our office is very important, and that she has an appointment booked for Thursday at 14:00 Patient is educated to keep the dressing clean, dry, intact, with daily dressing changes Patient is amenable to this plan COntinue with abx and all other recommendations per medicine upon discharge Time Spent With Patient Time: Total time managing care of this patient today ____ minutes. Quality Stroke Does the patient have a stroke diagnosis?: No VTE Prior VTE?: No VTE Risk Level:: Medical - moderate - high VTE Device Contraindication: N/A - Device Ordered VTE Drug Contraindication: N/A - Med Ordered
[2023-12-09] MEDS: Topiramate 100 MG TABLET PO (08:54)
[2023-12-09] MEDS: Loratadine 10 MG TABLET PO (08:55)
[2023-12-09] MEDS: Sertraline HCL 50 MG TABLET PO (08:55)
[2023-12-09] MEDS: Calcium + Vitamin D 250 MG TABLET PO (08:55)
[2023-12-09] MEDS: Folic Acid 1 MG TABLET PO (08:55)
[2023-12-09] MEDS: Ferrous Sulfate 324 MG TABLET.DR PO (08:55)
--- NOTE | 2023-12-09 10:16 | PM.DS ---
DS: Providers Provider Date of Service: 12/09/23 Date of admission: 12/05/23 10:25 Primary care physician: April Dave NP Consults: 12/05/23 15:05 Consult to Infectious Diseases Routine Consulting Provider: [facility] Reason for consultation: cellulitis , cat bite Has provider been notified: No 12/06/23 07:24 Consult to Orthopedics Routine Consulting Provider: [facility] Reason for consultation: right forearm/wrist cellulitis Has provider been notified: No DS: Diagnosis Discharge Diagnosis (1) Abscess of right forearm: Status: Acute DS: Summary Hospital Course Hospital Course: admiision hpi Chief Complaint: anemia 63 yo female multiple comorbidities including diabetes, CKD, asthma, CHF, hypertension, TIA history, JANET, obesity -came c/o cat bite and w/ right hand pain/ swelling/ redness s/p cat bite 3 days duration. purulent/ brown drainage from the puncture wounds. she admits to pain on flexion of all digits and cannot fully make a fist. her cat(she got it from her niece)-not fully vaccinated. denies any fevers or chills. labs-No white count. elevated ESR/ CRP. lactin wnl. blood cultures sent. XR showing question mild generalized soft tissue swelling throughout the wrist forearm/hand/wrist region. as per ED: she's been treated with a dose of unasyn. ortho Dr. Moreno saw the patient at bedside, recommending admission to medicine for IV antibiotics with plan for OR wash out tomorrow morning. patient to be NPO at midnight.further ED d/w with iD-patient is switched to levquin/clinda . anemia -unclear wtiology, denies any hayley bleeding or melena hx -moslt h/h is 8 range from 2020, outpatient hematology ?AOCD considering ckd. might also have component of dilaution due to fluids , ed added -sent type and cross , 1 prbc ordered. admission requested for -cellulitis ,anemia , possible need for i&d. hospital course Patient preesnted with cat bite celullitis that was worsening despite PO Augmentin, in the ED was given IV Unassyn and admitted with Levaquin and Clindamycin and then underwent debridement in the OR. She doing overal much better and will be discharge with PO.. She has a follow up appointment with ortho in 2 days Time Attestation Discharge Coordination Time (in mins): 45 Quality: Safe Use of Opioids Does Pt have an Active Cancer Diagnosis on the Problem List?: No Quality: Stroke Does the patient have a stroke diagnosis?: No Physical Exam Vital Signs: Vital Signs: Last Vital Signs Temp 97.4 F 12/09/23 07:55 Pulse 91 12/09/23 07:55 Resp 19 12/09/23 07:55 BP 138/64 12/09/23 07:55 Pulse Ox 99 12/09/23 07:55 O2 Del Method Room Air 12/09/23 07:55 BMI result Body Mass Index 29.4 DS: Data Data Completed and Pending Completed studies during hospitalization [Text1]: Procedures Transfusion of Nonautologous Red Blood Cells into Peripheral Vein, Percutaneous Approach (02/19/21) Labs on day of discharge: Laboratory Results - last 24 hr 12/08/23 12/08/23 12/08/23 12:04 13:53 16:10 WBC RBC Hgb Hct MCV MCH MCHC RDW Plt Count MPV Absolute Nucleated RBC Nucleated RBC % (auto) POC Glucose 91 128 H Stool Occult Blood NEGATIVE 12/08/23 12/09/23 12/09/23 20:23 06:20 07:22 WBC 3.0 L RBC 2.96 L Hgb 8.3 L Hct 25.7 L MCV 86.8 MCH 28.0 MCHC 32.3 RDW 15.6 Plt Count 181 MPV 8.8 L Absolute Nucleated RBC 0.000 Nucleated RBC % (auto) 0.0 POC Glucose 92 93 Stool Occult Blood Preliminary micro results at discharge 12/05/23 07:53 Blood Culture - Preliminary Blood - Venous No growth after 48 hours. 12/05/23 07:53 Blood Culture - Preliminary Blood - Venous No growth after 48 hours. Discharge Plan Discharge Anticipated Discharge Date/Time: 12/09/23 13:19 Patient Disposition: Home Health Service Discharge Diagnosis: Hyponatremia, anemia, cellulitis Referrals: [facility] [Outside] - 1 Week Glenroy Kulkarni PA [Physician [employer] Numerical [employer] Programmer] - 1 Week (12/11/23 14:00 [facility] Glenroy Kulkarni PA ) April Dave NP [Primary Care Provider] - 1 Week Discharge Medications: New clindamycin HCl 300 mg capsule 300 mg PO TID Qty: 15 0RF levofloxacin 500 mg tablet 500 mg PO DAILY 5 Days Qty: 5 0RF Continued Januvia 100 mg tablet 100 mg PO DAILY 30 Days Qty: 30 1RF sennosides [Senna Laxative] 8.6 mg tablet 17.2 mg PO BEDTIME Qty: 60 6RF oxcarbazepine 150 mg tablet 1 tab PO BID PRN (Reason: Restless Leg(S)) calcium carbonate-vitamin D3 600 mg(1,500mg) -400 unit tablet 1 tab PO BID atorvastatin 40 mg tablet 1 tab PO BEDTIME cetirizine 10 mg tablet 1 tab PO QAM furosemide 40 mg tablet 1.5 tab PO QAM albuterol sulfate 90 mcg/actuation HFA aerosol inhaler 2 puff PO QID PRN (Reason: Wheezing) fluticasone propionate [Flovent HFA] 110 mcg/actuation HFA aerosol inhaler 2 puff inhalation BID insulin glargine [Lantus Solostar U-100 Insulin] 100 unit/mL (3 mL) insulin pen 12 unit subcut BEDTIME bacitracin 500 unit/gram packet 1 appl topical TID 7 Days Qty: 144 0RF folic acid 1 mg tablet 1 mg PO DAILY omeprazole 20 mg capsule,delayed release(DR/EC) 20 mg PO DAILY@0630 imipramine HCl 25 mg tablet 50 mg PO BEDTIME PRN (Reason: Constipation) sertraline 50 mg tablet 50 mg PO DAILY topiramate 100 mg tablet 100 mg PO BID ferrous sulfate [FeroSul] 325 mg (65 mg iron) tablet 325 mg PO DAILY amlodipine 2.5 mg tablet 2.5 mg PO QPM olmesartan 40 mg tablet 40 mg PO DAILY Discontinued amoxicillin-pot clavulanate 875-125 mg tablet 1 tab PO BID 7 Days Qty: 14 0RF Rx Instructions: STARTED ON 12/01, TO BE TAKEN FOR 10 DAYS Discharge Orders: Discharge Order (Routine); Ordered 12/09/23 Ordered By: Francisco Castorena Diet: Advance to usual diet Activity on Discharge: As tolerated Stand Alone Forms: Patient Portal Discharge page Print Language: Setswana Activity Restrictions/Additional Instructions: Daily Dressing change instructions Please change dressings daily. Remove previous dressing, and place antibiotic ointment over the incision sites Layer with gauze pads, kerlix, and coban/kelsea bandage Keep dressing clean,dry, intact Avoid getting incision sites and dressings wet until follow up Care Plan Goals: recovery from cat bite, infection Health Concerns: cat bite cellulilitis Plan of Treatment: take antibiotics as recomended Assessment: see above Discharge Date/Time: 12/09/23 14:00
--- NOTE | 2023-12-09 10:18 | MHC.CM.PN ---
Addendum entered by Bernarda Virk 12/09/23 14:06: Correction, pt will discharge home with new [facility], SOC tomorrow 12/08. Original Note: Second IMM given 12/08. Pt is medically cleared for discharge home self-care with resumption of previous [facility] services. Pt will transport herself home via elecrtic wheelchair.
--- NOTE | 2023-12-09 13:21 | P.F2F_ITS ---
Service Date Service Date: 12/09/23 Encounter Date of encounter: 12/09/23 Reasons for Services Signs and symptoms assessed: infected hand Reason for penitentiary: wound care Homebound: Leaving the home is medically contraindicated at this time without the asist of a device and/or another person due th the listed conditions above and below. Reason homebound: unable to drive and other (in wheelchair) Homebound supporting statement: Has infected right dominant hand, in wheelchair and therefore needs the assitance of another person Certification: Based on the above findings, I certify that this patient is confined to the home and needs intermittent penitentiary care, physical therapy and/or speech therapy, or continues to need occupational therapy. The patient is under my care, and I have initiated the establishment of the plan of care. The patient will be followed by a physician who will periodically review the plan of care. Time Spent With Patient Time: Total time managing care of this patient today ____ minutes.
== END 2023-12-09 14:00 | disposition home health service (06) | DRG 292 ==
LOC: HO.ED 07:42 → HO.EDOVER 10:30 → HO.IMC 12:33
PROVIDERS: Orthopaedic Surgery; Physician Assistant Medical; Admitting Provider Internal Medicine; Emergency Provider Emergency Medicine Emergency Medical Services; PCP Nurse Practitioner Primary Care; Visit Provider Internal Medicine
PROC: 0J9G0ZZ Drainage of Right Lower Arm Subcutaneous Tissue and Fascia, Open Approach (ICD-10-PCS; principal; 2023-12-06 08:00)
DX: I13.0 Hypertensive heart and chronic kidney disease with heart failure and stage 1 through stage 4 chronic kidney disease, or unspecified chronic kidney disease (principal); D84.9 Immunodeficiency, unspecified; E87.1 Hypo-osmolality and hyponatremia; L02.413 Cutaneous abscess of right upper limb; L03.113 Cellulitis of right upper limb; J44.9 Chronic obstructive pulmonary disease, unspecified; S51.851A Open bite of right forearm, initial encounter; W55.01XA Bitten by cat, initial encounter; E11.65 Type 2 diabetes mellitus with hyperglycemia; N18.30 Chronic kidney disease, stage 3 unspecified; D63.1 Anemia in chronic kidney disease; E86.1 Hypovolemia; I50.9 Heart failure, unspecified; J45.20 Mild intermittent asthma, uncomplicated; Z23 Encounter for immunization; E11.22 Type 2 diabetes mellitus with diabetic chronic kidney disease; F17.210 Nicotine dependence, cigarettes, uncomplicated; Z71.6 Tobacco abuse counseling; Z79.4 Long term (current) use of insulin; Z79.51 Long term (current) use of inhaled steroids; Z79.899 Other long term (current) drug therapy
CPT/HCPCS: 36415; 73090; 73110; 73130; 80048; 80053; 82248; 82272; 82607; 82746; 82947; 83010; 83036; 83540; 83605; 83615; 85007; 85014; 85018; 85025; 85027; 85045; 85652; 86140; 86850; 86900; 86901; 86923; 87040; 87070; 87205; 90375; 90675; 90715; 99285; J0295; J0736; J1100; J1956; J2250; J2405; J2704; J3010; P9016

== ENCOUNTER → 2023-12-05 10:25 | Outpatient (BNV) | payer OTHER, SELFPAY | PROVIDERS: Admitting Provider Internal Medicine; Emergency Provider Emergency Medicine Emergency Medical Services; PCP Nurse Practitioner Primary Care; Visit Provider Internal Medicine | DX: L02.413 Cutaneous abscess of right upper limb (principal) | CPT/HCPCS: 99222; 99232; 99239; G0180 ==

== ENCOUNTER → 2023-12-05 10:25 | Outpatient (BNV) | payer OTHER, SELFPAY | PROVIDERS: Admitting Provider Internal Medicine; Emergency Provider Emergency Medicine Emergency Medical Services; PCP Nurse Practitioner Primary Care; Visit Provider Orthopaedic Surgery | DX: L02.413 Cutaneous abscess of right upper limb (principal) | CPT/HCPCS: 25028; 99024 ==

== ENCOUNTER → 2023-12-05 10:25 | Outpatient (BNV) | payer OTHER, SELFPAY | PROVIDERS: Admitting Provider Internal Medicine; Emergency Provider Emergency Medicine Emergency Medical Services; PCP Nurse Practitioner Primary Care; Visit Provider Internal Medicine | DX: S51.851A Open bite of right forearm, initial encounter (principal); W55.01XA Bitten by cat, initial encounter | CPT/HCPCS: 99222 ==

== ENCOUNTER 2023-12-31 11:04 | Outpatient (REF) | payer OTHER, SELFPAY ==
[2023-12-31 13:24] LABS: Anion Gap 12 (12-20); Blood Urea Nitrogen 20 mg/dL (9-16); Calcium 9.8 mg/dL (8.4-10.2); Carbon Dioxide 22 mmol/L (22-29); Chloride 101 mmol/L (96-108); Estimated Glomerular Filt Rate 49; Glucose Random 102 mg/dL (60-115); Potassium 4.4 mmol/L (3.3-5.1); Sodium 131 mmol/L (135-145)
[2023-12-31 13:41] LABS: TSH reflex Free T4 < 0.01 uIU/mL (0.32-4.0)
[2023-12-31 14:24] LABS: Free T4 (Free Thyroxine) 1.14 ng/dL (0.71-1.85)
== END 2023-12-31 11:05 | disposition home or self-care (01) ==
LOC: HO.HHCL 11:04
PROVIDERS: Visit Provider Nurse Practitioner Primary Care
DX: E87.1 Hypo-osmolality and hyponatremia (principal)
CPT/HCPCS: 36415; 80048; 84439; 84443

== ENCOUNTER 2024-01-06 14:35 | Outpatient (AMB) | payer OTHER, SELFPAY ==
--- NOTE | 2024-01-06 14:38 | A.OFFVIS_ITS ---
Vital Signs 01/06/24 14:40 Height 4 ft 10 in Weight 138 lb BMI 28.8 Handedness Left Intake Visit Reasons: PO: Rt hand and wrist I&D w/ AR 12/06/23 Intake Note: Vikki is a 63 year old left hand dominant female who presents today for a post operative visit S/P right radial wrist abscess I&D and right dorsal hand abscess I&D, down to extensor tendons w/ Dr Moreno DOS: 12/06/2023. Patient reports she is having pain in her left hand, wrist and her left thumb that radiates up midway her arm. She had difficulty with flexion of wrist due to pain and can not put thumbs up . She has to use left hand to get her daily everyday task done and this is a struggle for her. She finds some relief with over the counter medications. Denies loss of sensation or tingling. Allergies hydrocodone [From Vicodin] Allergy (Mild, Verified 01/06/24 14:40) ITCHING SHANAE Inhibitors [SHANAE INHIBITORS] Allergy (Unknown, Verified 01/06/24 14:40) UNKNOWN ENVIROMENTAL Allergy (Mild, Uncoded 01/06/24 14:40) HAYFEVER lysol wipes Allergy (Mild, Uncoded 01/06/24 14:40) Hives avacado Allergy (Unknown, Uncoded 01/06/24 14:40) NEPHROPATHY HPI HPI PO: Rt hand and wrist I&D w/ AR 12/06/23: Details: Patient is a 63-year-old female who presents for postoperative evaluation of right hand and wrist irrigation and debridement with Dr. Moreno, DOS 12/06/2023. Today, the patient reports that she is feeling okay, and then there is no evidence of a return infection. However, the patient reports that she is unable to actively extend the right thumb since surgery. Patient reports that it does cause her pain to try to do so, but this is not the reason that she can not extend her thumb, she feels she is physically unable to do so. Patient denies any redness, swelling, or evidence of recurrent infection in her right hand. Patient did finish her course of antibiotics without difficulty. No numbness or tingling in the right upper extremity. No other acute complaints or concerns at this time. [facility] Medical History Seizures Syncope History of TIA (transient ischemic attack) CHF (congestive heart failure) Essential hypertension Hyperlipidemia Type 2 diabetes mellitus with chronic kidney disease Chronic kidney disease, stage 3 Anemia COPD (chronic obstructive pulmonary disease) Asthma JANET (obstructive sleep apnea) Nicotine dependence, cigarettes, uncomplicated Restless leg syndrome Obesity Tubular adenoma of colon IBS (irritable bowel syndrome) Constipation Primary osteoarthritis of right knee Osteoarthritis Right knee pain History of migraine Surgical History History of appendectomy History of cholecystectomy History of esophagogastroduodenoscopy (EGD) History of colonoscopy History of total left knee replacement (TKR) History of arthroscopy of left knee History of arthroscopy of right knee History of elbow surgery History of surgery on wrist History of carpal tunnel release of both wrists History of lumpectomy of right breast Family History Father Hx of gout Diabetes Mother Diabetes Daughter Pre-diabetes Brother Cancer Social History Household Members: None Housing: Apartment Do you presently have visiting nurse or other home services: No Alcohol intake: never Patient Tobacco Use Status: Current everyday Tobacco user Tobacco use type: Cigarette Cigarette Packs Per Day: 1 Cigarettes Per Day: 20.0 Years Smoked: onset 16yo, 3ppd x 47yrs, now 2ppd, >100pyh Second Hand Smoke Exposure: No Advance Directives Date on File: 02/18/21 service: No Current occupational status: disabled Current occupation: left hand dominant Physical Exam Vital Signs: BMI result Body Mass Index 28.8 Extrem Other: Patient is alert, oriented, and in no acute distress. Neuro: Normal sensation of the tips of all digits of the [] hand at this time Vascular: Cap refill brisk Pain: Patient reports pain with attempted range of motion of the right thumb No tenderness to palpation anywhere on the right hand or wrist ROM: Patient is unable to actively extend past neutral with the right thumb, and is unable to hold extension when passively extended Patient is able to make a closed fist and extend all other digits of the right hand fully and without difficulty Skin: Small, well-healing abrasions noted on the dorsal aspect of the right hand No evidence of drainage or infection General: No ecchymosis, erythema, or evidence of infection. Psych: Appears grossly normal Affect normal Attitude cooperative Assessment & Plan Assessment & Plan (1) Abscess of right forearm: Code(s): L02.413 - Cutaneous abscess of right upper limb Category: Medical (2) Unspecified injury of extensor muscle, fascia and tendon of right thumb at wrist and hand level, initial encounter: Code(s): S66.201A - Unspecified injury of extensor muscle, fascia and tendon of right thumb at wrist and hand level, initial encounter Category: Medical Plan 1. Extensor lag of right thumb status post I and D of right hand and wrist 2. Abscess of right hand and wrist status post irrigation and debridement DOS 12/06/2023 No evidence of recurrent infection Patient appears to be recovering moderately well postoperatively However, extensor lag in the patient's right thumb is concerning for potential tendon injury Cases discussed with Dr. Moreno, who requests to see the patient for surgical consult in 4-6 weeks Patient was referred for this visit Patient was amenable to this plan In the meantime, patient is encouraged to continue trying to work on range of motion of the right hand Patient is also amenable to this Patient will follow-up in 4-[address] Moreno for surgical consult for potential extensor tendon injury of the right thumb, sooner with any acute concerns Coding Level of Care Code Global (03420) Diagnoses Abscess of right forearm L02.413 Unspecified injury of extensor muscle, fascia and tendon of right thumb at wrist and hand level, initial encounter S66.201A
[2024-01-06 14:40] VITALS: BMI 28.8
== END 2024-01-06 15:03 | disposition home or self-care (01) ==
LOC: HO.HOS 14:35
PROVIDERS: PCP Nurse Practitioner Primary Care
DX: L02.413 Cutaneous abscess of right upper limb (principal); S66.201A Unspecified injury of extensor muscle, fascia and tendon of right thumb at wrist and hand level, initial encounter
CPT/HCPCS: 99024

== ENCOUNTER → 2024-01-06 14:35 | Outpatient (BNVA) | payer OTHER, SELFPAY | PROVIDERS: PCP Nurse Practitioner Primary Care | DX: L02.413 Cutaneous abscess of right upper limb (principal); S66.201A Unspecified injury of extensor muscle, fascia and tendon of right thumb at wrist and hand level, initial encounter; X58.XXXA Exposure to other specified factors, initial encounter; Y93.9 Activity, unspecified; Y92.9 Unspecified place or not applicable; Y99.9 Unspecified external cause status | CPT/HCPCS: 99212 ==

== ENCOUNTER 2024-01-08 07:37 | Outpatient (REF) | payer OTHER, SELFPAY ==
--- NOTE | ~2024-01-08 | CT_ITS ---
EXAMINATION: CT CHEST, ABDOMEN, AND PELVIS WITH CONTRAST CLINICAL INFORMATION: Abnormal weight loss. History of smoking. Concern for malignancy. COMPARISON: CT scans dating between July 31, 2023 and October 27, 2013. More remote prior studies are not currently available. TECHNIQUE: Multidetector volumetric CT imaging of the chest, abdomen, and pelvis was obtained after the administration of oral contrast and of 85 mL of Omnipaque 350 intravenous contrast without immediate adverse reactions. Axial MIP volume rendering provided. Sagittal and coronal reformatted images were obtained. This CT examination was performed using dose optimization techniques as appropriate, variously including the following: *Automated exposure control *Adjustment of mA and/or kV according to patient size (this includes techniques or standardized protocols for targeted exams where dose is matched to indication/reason for exam; i.e. extremities or head) *Use of iterative reconstruction technique DLP: 476 mGy-cm FINDINGS: LUNGS: No acute infiltrate identified. No suspicious lung nodule identified. 0.6 cm or less bilateral upper lobe lung nodules or intrapulmonary lymph nodes, not significantly changed over at least 4 years, therefore benign. Benign calcified right middle lobe granuloma (image 251, series 5). No further dedicated follow-up imaging of these findings is indicated per Fleischner Society guidelines. Mild bibasilar fibrotic streaks and/or atelectasis, left greater than right. Mild emphysema. MEDIASTINUM: The mediastinum appears unremarkable. CORONARY ARTERY CALCIFICATION: None. PLEURA: There is no pleural effusion. No pleural mass or thickening. AXILLA: No lymphadenopathy by size criteria. LIVER, GALLBLADDER, AND BILIARY TREE: The liver appears unremarkable in size, shape, and attenuation. No focal hepatic lesion or biliary ductal dilatation is appreciated. Status post cholecystectomy. PANCREAS: Unremarkable SPLEEN: Measures approximately 14 cm in sagittal dimension, not grossly changed. Subcentimeter, round, homogeneous, hypodense splenic lesion, too small to characterize, probably representing a benign entity, such as a cyst or hemangioma (image 26, series 3). ADRENAL GLANDS: Unremarkable KIDNEYS AND URETERS: 1.9 cm or less benign bilateral simple renal cysts for which no further dedicated follow-up imaging as indicated. The kidneys otherwise appear unremarkable in size, shape, and attenuation. No hydronephrosis, hydroureter, or calculi seen. BLADDER: Unremarkable GASTROINTESTINAL TRACT: Stomach and small bowel appear unremarkable. Colonic diverticulosis without evidence of diverticulitis. Normal-appearing distal ileum. No evidence of appendicitis. ABDOMINAL WALL: Mild anasarca. Approximately 1.5 cm umbilical hernia containing only fat. LYMPH NODES: No evidence of adenopathy by size criteria. VASCULAR: Aortoiliac atherosclerosis. PELVIC VISCERA: Suspect approximately 2 cm intramural uterine leiomyoma. OSSEOUS STRUCTURES: No lytic or sclerotic bony lesion identified. Suspect decreased bone mineral density. CT/CT abdomen pelvis w IV con IMPRESSION: Mild splenomegaly, grossly similar compared with July 31, 2023. Additional findings, as above. Electronically signed by: Misael Arevalo MD 01/08/2024 04:15 PM EDT
[2024-01-08] MEDS: iohexoL 350 MG/ML 100 ML INFUS..BTL IV (10:16)
[2024-01-08] MEDS: Barium Sulfate Oral (Berry) 450 ML ORAL.SUSP PO ×2 (10:17→10:18)
== END 2024-01-08 07:38 | disposition home or self-care (01) ==
LOC: HO.CT 07:37
PROVIDERS: PCP Nurse Practitioner Primary Care; Visit Provider Nurse Practitioner Primary Care
DX: R63.4 Abnormal weight loss (principal)
CPT/HCPCS: 71260; 74177; Q9967

== ENCOUNTER 2024-02-01 19:08 | Emergency (ER) | payer OTHER, SELFPAY ==
--- NOTE | ~2024-02-01 | XR_ITS ---
EXAMINATION: XR ABDOMEN KUB CLINICAL INDICATION: Constipation. COMPARISON: CT abdomen/pelvis 01/08/2024. TECHNIQUE: AP view of the abdomen. FINDINGS: Nonspecific prominence of loops of the small bowel in the left abdomen measuring up to 3.5 cm in diameter. Suggestion of colonic wall thickening for example as visualized in the right upper quadrant with subjective thumbprinting. Right upper quadrant surgical clips. No acute osseous findings. Lung bases are clear. XR/XR KUB IMPRESSION: Nonspecific prominent loops of small bowel in the left abdomen that could be related with ileus or early obstruction. Equivocal colonic wall thickening. Recommend further characterization with CT abdomen/pelvis. Electronically signed by: Desiree Garcia MD 02/01/2024 09:48 PM EST
[2024-02-01 19:17] VITALS: BP 135/50; PULSE 100; RESP 20; TEMP 36.8; O2SAT 99; BMI 28.8
--- NOTE | 2024-02-01 19:24 | ED_ITS ---
HPI - General Adult General Chief complaint: General Medical Stated complaint: Bad Medical Problem History of Present Illness HPI narrative: Patient left before completion of treatment by ED provider. Related Data Home Medications ?Medication ?Instructions ?Recorded ?Confirmed atorvastatin 40 mg tablet 1 tab PO BEDTIME 01/12/20 12/05/23 calcium carbonate 600 mg-vitamin 1 tab PO BID 01/12/20 12/05/23 D3 10 mcg (400 unit) tablet cetirizine 10 mg tablet 1 tab PO QAM 01/12/20 12/05/23 oxcarbazepine 150 mg tablet 1 tab PO BID PRN Restless Leg(S) 01/12/20 12/05/23 sertraline 50 mg tablet 50 mg PO DAILY 08/20/20 12/05/23 albuterol sulfate 90 mcg/actuation 2 puff PO QID PRN Wheezing 02/18/21 12/05/23 aerosol inhaler fluticasone propionate 110 2 puff inhalation BID 02/18/21 12/05/23 mcg/actuation HFA aerosol inhaler (Flovent HFA) furosemide 40 mg tablet 1.5 tab PO QAM 02/18/21 12/05/23 insulin glargine 100 unit/mL (3 12 unit subcut BEDTIME 02/18/21 12/05/23 mL) subcutaneous pen (Lantus Solostar U-100 Insulin) amlodipine 2.5 mg tablet 2.5 mg PO QPM 09/19/21 12/05/23 ferrous sulfate 325 mg (65 mg 325 mg PO DAILY 09/19/21 12/05/23 iron) tablet (FeroSul) olmesartan 40 mg tablet 40 mg PO DAILY 09/19/21 12/05/23 topiramate 100 mg tablet 100 mg PO BID 09/19/21 12/05/23 folic acid 1 mg tablet 1 mg PO DAILY 12/05/23 12/05/23 Previous Rx's ?Medication ?Instructions ?Recorded sitagliptin phosphate 100 mg 100 mg PO DAILY 30 days #30 tabs 08/15/21 tablet (Januvia) bacitracin 500 unit/gram topical 1 appl topical TID 7 days #144 ea 10/24/23 packet sennosides 8.6 mg tablet (Senna 17.2 mg (2 x 8.6 mg) PO BEDTIME 11/03/23 Laxative) #60 tabs clindamycin HCl 300 mg capsule 300 mg PO TID #15 caps 12/09/23 levofloxacin 500 mg tablet 500 mg PO DAILY 5 days #5 tabs 12/09/23 imipramine HCl 25 mg tablet 50 mg (2 x 25 mg) PO BEDTIME #60 01/15/24 tabs omeprazole 20 mg capsule,delayed 20 mg PO QAM #30 caps 01/15/24 release Allergies Allergy/AdvReac Type Severity Reaction Status Date / Time hydrocodone [From Vicodin] Allergy Mild ITCHING Verified 02/01/24 19:18 SHANAE Inhibitors Allergy Unknown UNKNOWN Verified 02/01/24 19:18 [SHANAE INHIBITORS] ENVIROMENTAL Allergy Mild HAYFEVER Uncoded 02/01/24 19:18 lysol wipes Allergy Mild Hives Uncoded 02/01/24 19:18 avacado Allergy Unknown NEPHROPATHY Uncoded 02/01/24 19:18 [facility] Past Medical History Medical History Seizures Syncope History of TIA (transient ischemic attack) CHF (congestive heart failure) Essential hypertension Hyperlipidemia Type 2 diabetes mellitus with chronic kidney disease Chronic kidney disease, stage 3 Anemia COPD (chronic obstructive pulmonary disease) Asthma JANET (obstructive sleep apnea) Nicotine dependence, cigarettes, uncomplicated Restless leg syndrome Obesity Tubular adenoma of colon IBS (irritable bowel syndrome) Constipation Primary osteoarthritis of right knee Osteoarthritis Right knee pain History of migraine Surgical History History of appendectomy History of cholecystectomy History of esophagogastroduodenoscopy (EGD) History of colonoscopy History of total left knee replacement (TKR) History of arthroscopy of left knee History of arthroscopy of right knee History of elbow surgery History of surgery on wrist History of carpal tunnel release of both wrists History of lumpectomy of right breast Family History Family History Father Hx of gout Diabetes Mother Diabetes Daughter Pre-diabetes Brother Cancer Social History Social History Household Members: None Housing: Apartment Do you presently have visiting nurse or other home services: No Alcohol intake: never Patient Tobacco Use Status: Current everyday Tobacco user Tobacco use type: Cigarette Cigarette Packs Per Day: 1 Cigarettes Per Day: 20.0 Years Smoked: onset 16yo, 3ppd x 47yrs, now 2ppd, >100pyh Second Hand Smoke Exposure: No Advance Directives: Yes Advance Directives on File: Yes Advance Directives Date on File: 02/18/21 service: No Current occupational status: disabled Current occupation: left hand dominant Physical Exam ED Vital Signs: Vital Signs - 24 hr 02/01/24 19:17 Temperature 98.2 F Pulse Rate 100 Respiratory Rate 20 Blood Pressure 135/50 L Pulse Oximetry 99 Oxygen Delivery Method Room Air BMI result Body Mass Index 28.8 Course Course Course Narrative: RME: 63-year-old female presents to ED for low belly pain, blood in stool, hard stool, possible constipation. Patient denies any nausea or vomiting. Patient denies any diarrhea. Medical Decision Making Lab Data 02/01/24 19:47 02/01/24 19:47 Labs: Lab Results 02/01/24 Range/Units 19:47 WBC 8.7 (4.8-10.8) X10*3/uL RBC 3.48 L (4.20-5.50) X10*6/uL Hgb 9.9 L (12.0-16.0) g/dl Hct 29.6 L (37.0-47.0) % MCV 85.1 (80.0-98.0) fL MCH 28.4 (27.0-33.0) pg MCHC 33.4 (31.0-35.0) g/dl RDW 15.6 (11.0-16.0) % Plt Count 182 (160-400) X10*3/uL MPV 8.5 L (9.4-12.3) fL Immature Gran % (Auto) 0.3 (0.0-0.4) % Neut % (Auto) 80.9 H (45-73) % Lymph % (Auto) 12.9 L (20-40) % [place] % (Auto) 5.7 (2-11) % Eos % (Auto) 0.0 (0-4) % Baso % (Auto) 0.2 (0-2) % Lymph # (Auto) 1.1 L (1.2-4.9) X10*3/uL [place] # (Auto) 0.5 (0.1-1.2) X10*3/uL Eos # (Auto) 0.0 (0.0-0.4) X10*3/uL Baso # (Auto) 0.0 (0.0-0.2) X10*3/uL Abs Immat Gran (auto) 0.03 (0.00-0.03) X10*3/uL Absolute Neuts (auto) 7.0 (2.0-8.3) x10*3/uL Absolute Nucleated RBC 0.000 (0.0-0.012) X10*3/uL Nucleated RBC % (auto) 0.0 (0.0-0.2) /100WBC PT 11.6 (10.9-12.4) SEC INR 1.0 (0.9-1.1) APTT 27.1 (26.0-36.8) SEC Sodium 129 L (135-145) mmol/L Potassium 3.1 L (3.3-5.1) mmol/L Chloride 97 (96-108) mmol/L Carbon Dioxide 21 L (22-29) mmol/L Anion Gap 14 (12-20) BUN 13 (9-16) mg/dL Creatinine 1.15 (0.5-1.4) mg/dL Estim Creat Clear Calc 39.2 Estimated GFR 48 Random Glucose 93 (60-115) mg/dL Calcium 9.2 (8.4-10.2) mg/dL Total Bilirubin 0.4 (0.0-1.0) mg/dL AST 15 (5-31) U/L ALT < 6 (0-31) U/L Alkaline Phosphatase 123 H (39-117) U/L Total Protein 7.4 (6.5-8.0) g/dL Albumin 3.6 (3.5-5.0) g/dL Discharge Plan Discharge Clinical Impression: Abdominal pain Patient Disposition: Left W/O Completing Treatment Prescriptions: No Action Januvia 100 mg tablet 100 mg PO DAILY 30 Days Qty: 30 1RF sennosides [Senna Laxative] 8.6 mg tablet 17.2 mg PO BEDTIME Qty: 60 6RF omeprazole 20 mg capsule,delayed release(DR/EC) 20 mg PO QAM Qty: 30 6RF imipramine HCl 25 mg tablet 50 mg PO BEDTIME Qty: 60 6RF oxcarbazepine 150 mg tablet 1 tab PO BID PRN (Reason: Restless Leg(S)) calcium carbonate-vitamin D3 600 mg(1,500mg) -400 unit tablet 1 tab PO BID atorvastatin 40 mg tablet 1 tab PO BEDTIME cetirizine 10 mg tablet 1 tab PO QAM furosemide 40 mg tablet 1.5 tab PO QAM albuterol sulfate 90 mcg/actuation HFA aerosol inhaler 2 puff PO QID PRN (Reason: Wheezing) fluticasone propionate [Flovent HFA] 110 mcg/actuation HFA aerosol inhaler 2 puff inhalation BID insulin glargine [Lantus Solostar U-100 Insulin] 100 unit/mL (3 mL) insulin pen 12 unit subcut BEDTIME bacitracin 500 unit/gram packet 1 appl topical TID 7 Days Qty: 144 0RF folic acid 1 mg tablet 1 mg PO DAILY clindamycin HCl 300 mg capsule 300 mg PO TID Qty: 15 0RF levofloxacin 500 mg tablet 500 mg PO DAILY 5 Days Qty: 5 0RF sertraline 50 mg tablet 50 mg PO DAILY topiramate 100 mg tablet 100 mg PO BID ferrous sulfate [FeroSul] 325 mg (65 mg iron) tablet 325 mg PO DAILY amlodipine 2.5 mg tablet 2.5 mg PO QPM olmesartan 40 mg tablet 40 mg PO DAILY Discharge Date/Time: 02/02/24 00:40
[2024-02-01 19:52] LABS: MANUAL DIFF FLAG NO
[2024-02-01 19:53] LABS: Basophils Percent Auto 0.2 % (0-2); Hematocrit 29.6 % (37.0-47.0); Hemoglobin 9.9 g/dl (12.0-16.0); Imm Gran Abs Auto 0.03 X10*3/uL (0.00-0.03); Imm Gran Pct Auto 0.3 % (0.0-0.4); Lymphocytes Absolute Auto 1.1 X10*3/uL (1.2-4.9); Lymphocytes Percent Auto 12.9 % (20-40); Mean Corpuscular HGB Conc 33.4 g/dl (31.0-35.0); Mean Corpuscular Hemoglobin 28.4 pg (27.0-33.0); Mean Corpuscular Volume 85.1 fL (80.0-98.0); Mean Platelet Volume 8.5 fL (9.4-12.3); Monocytes Absolute Auto 0.5 X10*3/uL (0.1-1.2); Monocytes Percent Auto 5.7 % (2-11); Neutrophils Percent Auto 80.9 % (45-73); Platelet Count 182 X10*3/uL (160-400); Red Blood Count 3.48 X10*6/uL (4.20-5.50); Red Cell Distribution Width 15.6 % (11.0-16.0); White Blood Count 8.7 X10*3/uL (4.8-10.8)
[2024-02-01 20:00] LABS: Prothrombin Time 11.6 SEC (10.9-12.4)
[2024-02-01 20:03] LABS: Partial Thromboplastin Time 27.1 SEC (26.0-36.8)
[2024-02-01 20:16] LABS: Alanine Aminotransferase < 6 U/L (0-31); Albumin Level 3.6 g/dL (3.5-5.0); Alkaline Phosphatase 123 U/L (39-117); Anion Gap 14 (12-20); Aspartate Amino Transferase 15 U/L (5-31); Bilirubin Total 0.4 mg/dL (0.0-1.0); Blood Urea Nitrogen 13 mg/dL (9-16); Calcium 9.2 mg/dL (8.4-10.2); Carbon Dioxide 21 mmol/L (22-29); Chloride 97 mmol/L (96-108); Creatinine Clr Calc Pharmacy 39.2; Estimated Glomerular Filt Rate 48; Glucose Random 93 mg/dL (60-115); Potassium 3.1 mmol/L (3.3-5.1); Sodium 129 mmol/L (135-145); Total Protein 7.4 g/dL (6.5-8.0)
== END 2024-02-02 00:40 | disposition left against medical advice (07) ==
PROVIDERS: Physician Assistant; Emergency Provider Emergency Medicine; PCP Nurse Practitioner Primary Care
DX: R10.2 Pelvic and perineal pain (principal); E11.9 Type 2 diabetes mellitus without complications; Z79.4 Long term (current) use of insulin; Z79.899 Other long term (current) drug therapy
CPT/HCPCS: 36415; 74018; 80053; 85025; 85610; 85730; 99282; 99283

== ENCOUNTER 2024-02-03 11:29 | Emergency (ER) | payer OTHER, SELFPAY ==
--- NOTE | ~2024-02-03 | CT_ITS ---
EXAMINATION: CT ABDOMEN AND PELVIS WITH CONTRAST CLINICAL INFORMATION: Ileus vs obstruction. COMPARISON: 01/08/24 TECHNIQUE: Multidetector volumetric images were obtained from the superior aspect of the liver through the pubic symphysis following administration 85 mL of Omnipaque 350 intravenous contrast. Sagittal and coronal reformatted images were obtained on the technologist's workstation. Oral contrast: No This CT examination was performed using dose optimization techniques as appropriate, variously including the following: *Automated exposure control *Adjustment of mA and/or kV according to patient size (this includes techniques or standardized protocols for targeted exams where dose is matched to indication/reason for exam; i.e. extremities or head) *Use of iterative reconstruction technique DLP: 436 mGy-cm FINDINGS: LUNG BASES: Unremarkable. ABDOMINAL AND PELVIC WALL: Unremarkable. LIVER AND BILIARY TREE: Hepatic steatosis. GALLBLADDER: Status post cholecystectomy. PANCREAS: Unremarkable. SPLEEN: Splenomegaly with the spleen measuring 14 cm in craniocaudal dimension, subcentimeter hypoattenuating splenic lesion is unchanged. ADRENAL GLANDS: Unremarkable. KIDNEYS AND URETERS: Unremarkable. GASTROINTESTINAL TRACT: There is thickening and inflammatory changes in the sigmoid colon which may reflect focal colitis, including inflammatory or infectious. Diverticulitis is felt to be less likely given no inflammatory diverticula are visualized. No evidence of obstruction. VASCULAR: Atherosclerotic calcifications, no aneurysmal dilation. LYMPH NODES/PERITONEUM: No lymphadenopathy. FREE FLUID: None. BLADDER: Unremarkable. PELVIC VISCERA: Unremarkable. OSSEOUS STRUCTURES: Mild degenerative changes of the thoracolumbar spine. CT/CT abdomen pelvis w IV con IMPRESSION: * Thickening and inflammatory changes in the sigmoid colon which may reflect focal colitis, including inflammatory or infectious. Diverticulitis is felt to be less likely given no inflammatory diverticula are visualized. No evidence of obstruction. * Hepatic steatosis. * Splenomegaly. Electronically signed by: Irasema Singh MD 02/03/2024 05:43 PM EST
[2024-02-03 11:37] VITALS: BP 105/45; PULSE 95; RESP 16; TEMP 35.8; O2SAT 100; BMI 28.8
--- NOTE | 2024-02-03 11:38 | ED_ITS ---
HPI - Abdominal Pain General Chief Complaint: Abdominal Pain Stated Complaint: rectum pain Time Seen by Provider: 02/03/24 15:38 Source: patient Mode of arrival: ambulatory Limitations: no limitations History of Present Illness HPI narrative: This is a 63-year-old woman with a past medical history of diabetes mellitus, CKD, asthma, CHF, hypertension, TIA, history of cholecystectomy, history of appendectomy who presents for evaluation of abnormal KUB. She states that she has had abdominal pain for the last few days. She states no nausea or vomiting. She states her last bowel movement was today. She states feeling somewhat constipated, but states that she is passing flatus. She reports that she did have a loose bowel movement today. She states no melena or hematochezia. She states no fevers or chills. She states no chest pain or dyspnea. She states no back pain. She states no urinary symptoms. She states no trauma. She states that she had an x-ray and was notified of abnormal result and was recommended to come to the emergency room for a CT scan for further evaluation. Related Data Home Medications ?Medication ?Instructions ?Recorded ?Confirmed atorvastatin 40 mg tablet 1 tab PO BEDTIME 01/12/20 12/05/23 calcium carbonate 600 mg-vitamin 1 tab PO BID 01/12/20 12/05/23 D3 10 mcg (400 unit) tablet cetirizine 10 mg tablet 1 tab PO QAM 01/12/20 12/05/23 oxcarbazepine 150 mg tablet 1 tab PO BID PRN Restless Leg(S) 01/12/20 12/05/23 sertraline 50 mg tablet 50 mg PO DAILY 08/20/20 12/05/23 albuterol sulfate 90 mcg/actuation 2 puff PO QID PRN Wheezing 02/18/21 12/05/23 aerosol inhaler fluticasone propionate 110 2 puff inhalation BID 02/18/21 12/05/23 mcg/actuation HFA aerosol inhaler (Flovent HFA) furosemide 40 mg tablet 1.5 tab PO QAM 02/18/21 12/05/23 insulin glargine 100 unit/mL (3 12 unit subcut BEDTIME 02/18/21 12/05/23 mL) subcutaneous pen (Lantus Solostar U-100 Insulin) amlodipine 2.5 mg tablet 2.5 mg PO QPM 09/19/21 12/05/23 ferrous sulfate 325 mg (65 mg 325 mg PO DAILY 09/19/21 12/05/23 iron) tablet (FeroSul) olmesartan 40 mg tablet 40 mg PO DAILY 09/19/21 12/05/23 topiramate 100 mg tablet 100 mg PO BID 09/19/21 12/05/23 folic acid 1 mg tablet 1 mg PO DAILY 12/05/23 12/05/23 Previous Rx's ?Medication ?Instructions ?Recorded sitagliptin phosphate 100 mg 100 mg PO DAILY 30 days #30 tabs 08/15/21 tablet (Januvia) bacitracin 500 unit/gram topical 1 appl topical TID 7 days #144 ea 10/24/23 packet sennosides 8.6 mg tablet (Senna 17.2 mg (2 x 8.6 mg) PO BEDTIME 11/03/23 Laxative) #60 tabs clindamycin HCl 300 mg capsule 300 mg PO TID #15 caps 12/09/23 levofloxacin 500 mg tablet 500 mg PO DAILY 5 days #5 tabs 12/09/23 imipramine HCl 25 mg tablet 50 mg (2 x 25 mg) PO BEDTIME #60 01/15/24 tabs omeprazole 20 mg capsule,delayed 20 mg PO QAM #30 caps 01/15/24 release Allergies Allergy/AdvReac Type Severity Reaction Status Date / Time hydrocodone [From Vicodin] Allergy Mild ITCHING Verified 02/03/24 11:40 SHANAE Inhibitors Allergy Unknown UNKNOWN Verified 02/03/24 11:40 [SHANAE INHIBITORS] ENVIROMENTAL Allergy Mild HAYFEVER Uncoded 02/03/24 11:40 lysol wipes Allergy Mild Hives Uncoded 02/03/24 11:40 [place] Allergy Unknown NEPHROPATHY Uncoded 02/03/24 11:40 Review of Systems Review of Systems ROS as per HPI [facility] Past Medical History Medical History Seizures Syncope History of TIA (transient ischemic attack) CHF (congestive heart failure) Essential hypertension Hyperlipidemia Type 2 diabetes mellitus with chronic kidney disease Chronic kidney disease, stage 3 Anemia COPD (chronic obstructive pulmonary disease) Asthma JANET (obstructive sleep apnea) Nicotine dependence, cigarettes, uncomplicated Restless leg syndrome Obesity Tubular adenoma of colon IBS (irritable bowel syndrome) Constipation Primary osteoarthritis of right knee Osteoarthritis Right knee pain History of migraine Surgical History History of appendectomy History of cholecystectomy History of esophagogastroduodenoscopy (EGD) History of colonoscopy History of total left knee replacement (TKR) History of arthroscopy of left knee History of arthroscopy of right knee History of elbow surgery History of surgery on wrist History of carpal tunnel release of both wrists History of lumpectomy of right breast Family History Family History Father Hx of gout Diabetes Mother Diabetes Daughter Pre-diabetes Brother Cancer Social History Social History Household Members: None Housing: Apartment Do you presently have visiting nurse or other home services: No Alcohol intake: never Patient Tobacco Use Status: Current everyday Tobacco user Tobacco use type: Cigarette Cigarette Packs Per Day: 1 Cigarettes Per Day: 20.0 Years Smoked: onset 16yo, 3ppd x 47yrs, now 2ppd, >100pyh Smoked in Last 30 Days: No Second Hand Smoke Exposure: No Advance Directives: Yes Advance Directives on File: Yes Advance Directives Date on File: 02/18/21 Do you have a plan to hurt others: No Plan Patient : No service: No Current occupational status: disabled Current occupation: left hand dominant Physical Exam ED Vital Signs: Vital Signs - 24 hr 02/03/24 11:37 02/03/24 14:59 Temperature 96.5 F L 97.9 F Pulse Rate 95 90 Respiratory Rate 16 18 Blood Pressure 105/45 L 126/65 Pulse Oximetry 100 100 Oxygen Delivery Method Room Air Room Air BMI result Body Mass Index 28.8 Gen: NAD, AOx3 HEENT: NCAT, EOMI, normal conjunctiva CV: RRR Pulm: CTAB, no increased work of breathing GI: Soft, NTND, no rebound, guarding or rigidity Neuro: Grossly non focal Course Course Course Narrative: This is a Rapid Medical Examination (RME) performed by Monica Fishman PA-C in triage. Full HPI, ROS, assessment and treatment plan per primary provider in the Main ED. 63 yo female here requesting cat scan. seen at walk in yest for lower abd pain, constipation x few days - had KUB which shows prominent loops of small bowel in left abdomen ?ileus or early obstruction. she was advised to come to ED last night however did not have a ride. admits to difficulty passing flatus. no hx of obstruction. Plan: labs, UA, CT (once back in bed) -- charge attendant aware and patient to be brought back to main ED bed Medical Decision Making Medical Decision Making [facility] Narrative: Differential diagnosis includes, but is not limited to diverticulitis, constipation, ileus, bowel obstruction, gastroenteritis. Patient is afebrile and hemodynamically stable on room air. Exam is benign and reassuring. I reviewed labs and CT imaging as below. On re-examination, patient is well-appearing and in no acute distress. ?Patient is tolerating oral intake. There is no indication for further emergent evaluation in this otherwise well-appearing patient as above. ?Patient is provided written and verbal instructions, educational materials, recommendations for outpatient follow-up, strict return precautions and teach back is performed. ?Patient states understanding and agreement with plan of care. ?Patient is discharged home in stable and improved condition. Admission/Observation Consideration of admission/observation: Escalation of care including admission/observation considered Lab Data [facility] Lab Attestation statement: I reviewed the patient's lab results. I independently reviewed and interpreted the patient's CBC, metabolic panel, magnesium, LFTs and lipase. Metabolic panel is notable for chronic stable anemia with hemoglobin of 9.2 (previous 9.9). Metabolic panel is notable for mild hypokalemia which is repleted. Magnesium level, LFTs and lipase are unremarkable. 02/03/24 12:06 02/03/24 12:06 Labs: Lab Results 02/03/24 Range/Units 12:06 WBC 5.1 (4.8-10.8) X10*3/uL RBC 3.25 L (4.20-5.50) X10*6/uL Hgb 9.2 L (12.0-16.0) g/dl Hct 26.9 L (37.0-47.0) % MCV 82.8 (80.0-98.0) fL MCH 28.3 (27.0-33.0) pg MCHC 34.2 (31.0-35.0) g/dl RDW 15.3 (11.0-16.0) % Plt Count 173 (160-400) X10*3/uL MPV 8.8 L (9.4-12.3) fL Immature Gran % (Auto) 0.2 (0.0-0.4) % Neut % (Auto) 76.0 H (45-73) % Lymph % (Auto) 16.1 L (20-40) % [place] % (Auto) 7.3 (2-11) % Eos % (Auto) 0.0 (0-4) % Baso % (Auto) 0.4 (0-2) % Lymph # (Auto) 0.8 L (1.2-4.9) X10*3/uL [place] # (Auto) 0.4 (0.1-1.2) X10*3/uL Eos # (Auto) 0.0 (0.0-0.4) X10*3/uL Baso # (Auto) 0.0 (0.0-0.2) X10*3/uL Abs Immat Gran (auto) 0.01 (0.00-0.03) X10*3/uL Absolute Neuts (auto) 3.9 (2.0-8.3) x10*3/uL Absolute Nucleated RBC 0.000 (0.0-0.012) X10*3/uL Nucleated RBC % (auto) 0.0 (0.0-0.2) /100WBC Sodium 131 L (135-145) mmol/L Potassium 3.0 L (3.3-5.1) mmol/L Chloride 102 (96-108) mmol/L Carbon Dioxide 20 L (22-29) mmol/L Anion Gap 12 (12-20) BUN 10 (9-16) mg/dL Creatinine 0.96 (0.5-1.4) mg/dL Estim Creat Clear Calc 46.9 Estimated GFR 59 Random Glucose 101 (60-115) mg/dL Calcium 9.2 (8.4-10.2) mg/dL Magnesium 1.8 (1.6-2.6) mg/dL Total Bilirubin 0.4 (0.0-1.0) mg/dL AST 17 (5-31) U/L ALT < 6 (0-31) U/L Alkaline Phosphatase 102 (39-117) U/L Total Protein 6.7 (6.5-8.0) g/dL Albumin 3.3 L (3.5-5.0) g/dL Lipase 10 (8-78) U/L Independent Interpretation I performed an independent interpretation of an: CT Scan Interpretation: CT/CT abdomen pelvis w IV con IMPRESSION: * Thickening and inflammatory changes in the sigmoid colon which may reflect focal colitis, including inflammatory or infectious. Diverticulitis is felt to be less likely given no inflammatory diverticula are visualized. No evidence of obstruction. * Hepatic steatosis. * Splenomegaly. Electronically signed by: Irasema Singh MD 02/03/2024 05:43 PM [facility] Dictated By: Irasema Singh MD Signed By: <Electronically signed by Irasema Singh MD in OV> 02/03/24 1743 Radiology Impression Discussion of test interpretation with radiology: I have reviewed the radiologist's reading. Medications Administered Discontinued Medications Generic Name Dose Route Start Last Admin Trade Name Freq PRN Reason Stop Dose Admin Diatrizoate Meglum/Diatrizoate Sod 30 ml 02/03/24 15:56 02/03/24 16:00 Diatrizoate Meglumine, Sodium 30 Ml Solution PO 02/03/24 15:57 30 ml ONCE ONE Administration Iohexol 100 ml 02/03/24 16:01 02/03/24 16:01 Iohexol 350 Mg/Ml 100 Ml Infus..Btl IV 02/03/24 16:02 85 ml ONCE ONE Administration Potassium Chloride 20 meq 02/03/24 15:42 02/03/24 17:03 Potassium Chloride Er 20 Meq Tab.Er.Prt PO 02/03/24 15:43 20 meq ONCE ONE Administration Potassium Chloride 20 meq 02/03/24 15:42 02/03/24 17:04 Potassium Chloride Er 20 Meq Tab.Er.Prt PO 02/03/24 15:43 20 meq ONCE ONE Administration Discharge Plan Discharge Clinical Impression: Abdominal pain, Hypokalemia Patient Disposition: Home, Self-Care Instructions: Hypokalemia (ED), Abdominal Pain (ED) Additional Instructions: You were seen and evaluated in the emergency room. Your vital signs were reassuring. Your blood work was overall reassuring and we did note that you had mildly low potassium for which you were given potassium pills increase her level to normal. Your CT scan did not show any signs bowel obstruction, but did demonstrate some inflammation of your colon. Please be sure that you follow-up with your primary care doctor to discuss your recent emergency room visit. Please note that your medical evaluation is not complete until you see your primary care doctor. Return to the emergency room if you develop any new or worsening symptoms including, but not limited to severe pain, persistent vomiting, bloody stools or inability to eat/drink. Prescriptions: No Action Januvia 100 mg tablet 100 mg PO DAILY 30 Days Qty: 30 1RF sennosides [Senna Laxative] 8.6 mg tablet 17.2 mg PO BEDTIME Qty: 60 6RF omeprazole 20 mg capsule,delayed release(DR/EC) 20 mg PO QAM Qty: 30 6RF imipramine HCl 25 mg tablet 50 mg PO BEDTIME Qty: 60 6RF oxcarbazepine 150 mg tablet 1 tab PO BID PRN (Reason: Restless Leg(S)) calcium carbonate-vitamin D3 600 mg(1,500mg) -400 unit tablet 1 tab PO BID atorvastatin 40 mg tablet 1 tab PO BEDTIME cetirizine 10 mg tablet 1 tab PO QAM furosemide 40 mg tablet 1.5 tab PO QAM albuterol sulfate 90 mcg/actuation HFA aerosol inhaler 2 puff PO QID PRN (Reason: Wheezing) fluticasone propionate [Flovent HFA] 110 mcg/actuation HFA aerosol inhaler 2 puff inhalation BID insulin glargine [Lantus Solostar U-100 Insulin] 100 unit/mL (3 mL) insulin pen 12 unit subcut BEDTIME bacitracin 500 unit/gram packet 1 appl topical TID 7 Days Qty: 144 0RF folic acid 1 mg tablet 1 mg PO DAILY clindamycin HCl 300 mg capsule 300 mg PO TID Qty: 15 0RF levofloxacin 500 mg tablet 500 mg PO DAILY 5 Days Qty: 5 0RF sertraline 50 mg tablet 50 mg PO DAILY topiramate 100 mg tablet 100 mg PO BID ferrous sulfate [FeroSul] 325 mg (65 mg iron) tablet 325 mg PO DAILY amlodipine 2.5 mg tablet 2.5 mg PO QPM olmesartan 40 mg tablet 40 mg PO DAILY Print Language: Wolof
[2024-02-03 12:10] LABS: MANUAL DIFF FLAG NO
[2024-02-03 12:11] LABS: Basophils Percent Auto 0.4 % (0-2); Hematocrit 26.9 % (37.0-47.0); Hemoglobin 9.2 g/dl (12.0-16.0); Imm Gran Abs Auto 0.01 X10*3/uL (0.00-0.03); Imm Gran Pct Auto 0.2 % (0.0-0.4); Lymphocytes Absolute Auto 0.8 X10*3/uL (1.2-4.9); Lymphocytes Percent Auto 16.1 % (20-40); Mean Corpuscular HGB Conc 34.2 g/dl (31.0-35.0); Mean Corpuscular Hemoglobin 28.3 pg (27.0-33.0); Mean Corpuscular Volume 82.8 fL (80.0-98.0); Mean Platelet Volume 8.8 fL (9.4-12.3); Monocytes Absolute Auto 0.4 X10*3/uL (0.1-1.2); Monocytes Percent Auto 7.3 % (2-11); Neutrophils Absolute Auto 3.9 x10*3/uL (2.0-8.3); Platelet Count 173 X10*3/uL (160-400); Red Blood Count 3.25 X10*6/uL (4.20-5.50); Red Cell Distribution Width 15.3 % (11.0-16.0); White Blood Count 5.1 X10*3/uL (4.8-10.8)
[2024-02-03 12:34] LABS: Alanine Aminotransferase < 6 U/L (0-31); Albumin Level 3.3 g/dL (3.5-5.0); Alkaline Phosphatase 102 U/L (39-117); Anion Gap 12 (12-20); Aspartate Amino Transferase 17 U/L (5-31); Bilirubin Total 0.4 mg/dL (0.0-1.0); Blood Urea Nitrogen 10 mg/dL (9-16); Calcium 9.2 mg/dL (8.4-10.2); Carbon Dioxide 20 mmol/L (22-29); Chloride 102 mmol/L (96-108); Creatinine Clr Calc Pharmacy 46.9; Estimated Glomerular Filt Rate 59; Glucose Random 101 mg/dL (60-115); Lipase 10 U/L (8-78); Magnesium 1.8 mg/dL (1.6-2.6); Sodium 131 mmol/L (135-145); Total Protein 6.7 g/dL (6.5-8.0)
[2024-02-03 14:59] VITALS: BP 126/65; PULSE 90; RESP 18; TEMP 36.6; O2SAT 100
--- NOTE | 2024-02-03 15:38 | ED.GENADULT ---
HPI - General Adult General Chief complaint: Abdominal Pain Stated complaint: rectum pain Time Seen by Provider: 02/03/24 15:38 Related Data Home Medications ?Medication ?Instructions ?Recorded ?Confirmed atorvastatin 40 mg tablet 1 tab PO BEDTIME 01/12/20 12/05/23 calcium carbonate 600 mg-vitamin 1 tab PO BID 01/12/20 12/05/23 D3 10 mcg (400 unit) tablet cetirizine 10 mg tablet 1 tab PO QAM 01/12/20 12/05/23 oxcarbazepine 150 mg tablet 1 tab PO BID PRN Restless Leg(S) 01/12/20 12/05/23 sertraline 50 mg tablet 50 mg PO DAILY 08/20/20 12/05/23 albuterol sulfate 90 mcg/actuation 2 puff PO QID PRN Wheezing 02/18/21 12/05/23 aerosol inhaler fluticasone propionate 110 2 puff inhalation BID 02/18/21 12/05/23 mcg/actuation HFA aerosol inhaler (Flovent HFA) furosemide 40 mg tablet 1.5 tab PO QAM 02/18/21 12/05/23 insulin glargine 100 unit/mL (3 12 unit subcut BEDTIME 02/18/21 12/05/23 mL) subcutaneous pen (Lantus Solostar U-100 Insulin) amlodipine 2.5 mg tablet 2.5 mg PO QPM 09/19/21 12/05/23 ferrous sulfate 325 mg (65 mg 325 mg PO DAILY 09/19/21 12/05/23 iron) tablet (FeroSul) olmesartan 40 mg tablet 40 mg PO DAILY 09/19/21 12/05/23 topiramate 100 mg tablet 100 mg PO BID 09/19/21 12/05/23 folic acid 1 mg tablet 1 mg PO DAILY 12/05/23 12/05/23 Previous Rx's ?Medication ?Instructions ?Recorded sitagliptin phosphate 100 mg 100 mg PO DAILY 30 days #30 tabs 08/15/21 tablet (Januvia) bacitracin 500 unit/gram topical 1 appl topical TID 7 days #144 ea 10/24/23 packet sennosides 8.6 mg tablet (Senna 17.2 mg (2 x 8.6 mg) PO BEDTIME 11/03/23 Laxative) #60 tabs clindamycin HCl 300 mg capsule 300 mg PO TID #15 caps 12/09/23 levofloxacin 500 mg tablet 500 mg PO DAILY 5 days #5 tabs 12/09/23 imipramine HCl 25 mg tablet 50 mg (2 x 25 mg) PO BEDTIME #60 01/15/24 tabs omeprazole 20 mg capsule,delayed 20 mg PO QAM #30 caps 01/15/24 release Allergies Allergy/AdvReac Type Severity Reaction Status Date / Time hydrocodone [From Vicodin] Allergy Mild ITCHING Verified 02/03/24 11:40 SHANAE Inhibitors Allergy Unknown UNKNOWN Verified 02/03/24 11:40 [SHANAE INHIBITORS] ENVIROMENTAL Allergy Mild HAYFEVER Uncoded 02/03/24 11:40 lysol wipes Allergy Mild Hives Uncoded 02/03/24 11:40 [place]ac[place] Allergy Unknown NEPHROPATHY Uncoded 02/03/24 11:40 [facility] Past Medical History Medical History Seizures Syncope History of TIA (transient ischemic attack) CHF (congestive heart failure) Essential hypertension Hyperlipidemia Type 2 diabetes mellitus with chronic kidney disease Chronic kidney disease, stage 3 Anemia COPD (chronic obstructive pulmonary disease) Asthma JANET (obstructive sleep apnea) Nicotine dependence, cigarettes, uncomplicated Restless leg syndrome Obesity Tubular adenoma of colon IBS (irritable bowel syndrome) Constipation Primary osteoarthritis of right knee Osteoarthritis Right knee pain History of migraine Surgical History History of appendectomy History of cholecystectomy History of esophagogastroduodenoscopy (EGD) History of colonoscopy History of total left knee replacement (TKR) History of arthroscopy of left knee History of arthroscopy of right knee History of elbow surgery History of surgery on wrist History of carpal tunnel release of both wrists History of lumpectomy of right breast Family History Family History Father Hx of gout Diabetes Mother Diabetes Daughter Pre-diabetes Brother Cancer Social History Social History Household Members: None Housing: Apartment Do you presently have visiting nurse or other home services: No Alcohol intake: never Patient Tobacco Use Status: Current everyday Tobacco user Tobacco use type: Cigarette Cigarette Packs Per Day: 1 Cigarettes Per Day: 20.0 Years Smoked: onset 16yo, 3ppd x 47yrs, now 2ppd, >100pyh Second Hand Smoke Exposure: No Advance Directives Date on File: 02/18/21 service: No Current occupational status: disabled Current occupation: left hand dominant Physical Exam ED Vital Signs: Vital Signs - 24 hr 02/03/24 11:37 02/03/24 14:59 Temperature 96.5 F L 97.9 F Pulse Rate 95 90 Respiratory Rate 16 18 Blood Pressure 105/45 L 126/65 Pulse Oximetry 100 100 Oxygen Delivery Method Room Air Room Air BMI result Body Mass Index 28.8 Medications Administered Discontinued Medications Generic Name Dose Route Start Last Admin Trade Name Freq PRN Reason Stop Dose Admin Diatrizoate Meglum/Diatrizoate Sod 30 ml 02/03/24 15:56 02/03/24 16:00 Diatrizoate Meglumine, Sodium 30 Ml Solution PO 02/03/24 15:57 30 ml ONCE ONE Administration Iohexol 100 ml 02/03/24 16:01 02/03/24 16:01 Iohexol 350 Mg/Ml 100 Ml Infus..Btl IV 02/03/24 16:02 85 ml ONCE ONE Administration Potassium Chloride 20 meq 02/03/24 15:42 02/03/24 17:03 Potassium Chloride Er 20 Meq Tab.Er.Prt PO 02/03/24 15:43 20 meq ONCE ONE Administration Potassium Chloride 20 meq 02/03/24 15:42 02/03/24 17:04 Potassium Chloride Er 20 Meq Tab.Er.Prt PO 02/03/24 15:43 20 meq ONCE ONE Administration Medical Decision Making Admission/Observation Consideration of admission/observation: Escalation of care including admission/observation considered Lab Data [facility] Lab Attestation statement: I reviewed the patient's lab results. 02/03/24 12:06 02/03/24 12:06 Labs: Lab Results 02/03/24 Range/Units 12:06 WBC 5.1 (4.8-10.8) X10*3/uL RBC 3.25 L (4.20-5.50) X10*6/uL Hgb 9.2 L (12.0-16.0) g/dl Hct 26.9 L (37.0-47.0) % MCV 82.8 (80.0-98.0) fL MCH 28.3 (27.0-33.0) pg MCHC 34.2 (31.0-35.0) g/dl RDW 15.3 (11.0-16.0) % Plt Count 173 (160-400) X10*3/uL MPV 8.8 L (9.4-12.3) fL Immature Gran % (Auto) 0.2 (0.0-0.4) % Neut % (Auto) 76.0 H (45-73) % Lymph % (Auto) 16.1 L (20-40) % [place] % (Auto) 7.3 (2-11) % Eos % (Auto) 0.0 (0-4) % Baso % (Auto) 0.4 (0-2) % Lymph # (Auto) 0.8 L (1.2-4.9) X10*3/uL [place] # (Auto) 0.4 (0.1-1.2) X10*3/uL Eos # (Auto) 0.0 (0.0-0.4) X10*3/uL Baso # (Auto) 0.0 (0.0-0.2) X10*3/uL Abs Immat Gran (auto) 0.01 (0.00-0.03) X10*3/uL Absolute Neuts (auto) 3.9 (2.0-8.3) x10*3/uL Absolute Nucleated RBC 0.000 (0.0-0.012) X10*3/uL Nucleated RBC % (auto) 0.0 (0.0-0.2) /100WBC Sodium 131 L (135-145) mmol/L Potassium 3.0 L (3.3-5.1) mmol/L Chloride 102 (96-108) mmol/L Carbon Dioxide 20 L (22-29) mmol/L Anion Gap 12 (12-20) BUN 10 (9-16) mg/dL Creatinine 0.96 (0.5-1.4) mg/dL Estim Creat Clear Calc 46.9 Estimated GFR 59 Random Glucose 101 (60-115) mg/dL Calcium 9.2 (8.4-10.2) mg/dL Magnesium 1.8 (1.6-2.6) mg/dL Total Bilirubin 0.4 (0.0-1.0) mg/dL AST 17 (5-31) U/L ALT < 6 (0-31) U/L Alkaline Phosphatase 102 (39-117) U/L Total Protein 6.7 (6.5-8.0) g/dL Albumin 3.3 L (3.5-5.0) g/dL Lipase 10 (8-78) U/L Independent Interpretation I performed an independent interpretation of an: CT Scan Interpretation: CT/CT abdomen pelvis w IV con IMPRESSION: * Thickening and inflammatory changes in the sigmoid colon which may reflect focal colitis, including inflammatory or infectious. Diverticulitis is felt to be less likely given no inflammatory diverticula are visualized. No evidence of obstruction. * Hepatic steatosis. * Splenomegaly. Electronically signed by: Irasema Singh MD 02/03/2024 05:43 PM [facility] Dictated By: Irasema Singh MD Signed By: <Electronically signed by Irasema Singh MD in OV> 02/03/24 2305 Discharge Plan Discharge Clinical Impression: Abdominal pain, Hypokalemia Patient Disposition: Home, Self-Care Instructions: Hypokalemia (ED), Abdominal Pain (ED) Additional Instructions: You were seen and evaluated in the emergency room. Your vital signs were reassuring. Your blood work was overall reassuring and we did note that you had mildly low potassium for which you were given potassium pills increase her level to normal. Your CT scan did not show any signs bowel obstruction, but did demonstrate some inflammation of your colon. Please be sure that you follow-up with your primary care doctor to discuss your recent emergency room visit. Please note that your medical evaluation is not complete until you see your primary care doctor. Return to the emergency room if you develop any new or worsening symptoms including, but not limited to severe pain, persistent vomiting, bloody stools or inability to eat/drink. Prescriptions: No Action Januvia 100 mg tablet 100 mg PO DAILY 30 Days Qty: 30 1RF sennosides [Senna Laxative] 8.6 mg tablet 17.2 mg PO BEDTIME Qty: 60 6RF omeprazole 20 mg capsule,delayed release(DR/EC) 20 mg PO QAM Qty: 30 6RF imipramine HCl 25 mg tablet 50 mg PO BEDTIME Qty: 60 6RF oxcarbazepine 150 mg tablet 1 tab PO BID PRN (Reason: Restless Leg(S)) calcium carbonate-vitamin D3 600 mg(1,500mg) -400 unit tablet 1 tab PO BID atorvastatin 40 mg tablet 1 tab PO BEDTIME cetirizine 10 mg tablet 1 tab PO QAM furosemide 40 mg tablet 1.5 tab PO QAM albuterol sulfate 90 mcg/actuation HFA aerosol inhaler 2 puff PO QID PRN (Reason: Wheezing) fluticasone propionate [Flovent HFA] 110 mcg/actuation HFA aerosol inhaler 2 puff inhalation BID insulin glargine [Lantus Solostar U-100 Insulin] 100 unit/mL (3 mL) insulin pen 12 unit subcut BEDTIME bacitracin 500 unit/gram packet 1 appl topical TID 7 Days Qty: 144 0RF folic acid 1 mg tablet 1 mg PO DAILY clindamycin HCl 300 mg capsule 300 mg PO TID Qty: 15 0RF levofloxacin 500 mg tablet 500 mg PO DAILY 5 Days Qty: 5 0RF sertraline 50 mg tablet 50 mg PO DAILY topiramate 100 mg tablet 100 mg PO BID ferrous sulfate [FeroSul] 325 mg (65 mg iron) tablet 325 mg PO DAILY amlodipine 2.5 mg tablet 2.5 mg PO QPM olmesartan 40 mg tablet 40 mg PO DAILY Interventions: ED Discharge Assessment Last Done: 02/03/24 18:36 Discharge Date/Time: 02/03/24 18:37 Print Language: Kiswahili
[2024-02-03] MEDS: Diatrizoate Meglumine, Sodium 30 ML SOLUTION PO (16:00)
[2024-02-03] MEDS: iohexoL 350 MG/ML 100 ML INFUS..BTL IV (16:01)
--- NOTE | 2024-02-03 16:14 | PC.NURSE ---
pharmacy contacted re:[id number] qty insuff for dose
[2024-02-03] MEDS: Potassium Chloride ER 20 MEQ TAB.ER.PRT PO ×2 (17:03→17:04)
[2024-02-03 18:36] VITALS: BP 126/65; PULSE 90; RESP 18; TEMP 36.6; O2SAT 100
== END 2024-02-03 18:37 | disposition home or self-care (01) ==
PROVIDERS: Physician Assistant Medical; Emergency Provider Emergency Medicine; PCP Nurse Practitioner Primary Care
DX: R10.9 Unspecified abdominal pain (principal); E87.6 Hypokalemia; K62.89 Other specified diseases of anus and rectum; E11.9 Type 2 diabetes mellitus without complications; I10 Essential (primary) hypertension; E78.5 Hyperlipidemia, unspecified; F17.210 Nicotine dependence, cigarettes, uncomplicated; Z79.4 Long term (current) use of insulin; Z79.899 Other long term (current) drug therapy; Z79.02 Long term (current) use of antithrombotics/antiplatelets
CPT/HCPCS: 36415; 74177; 80053; 83690; 83735; 85025; 99284; Q9967

== ENCOUNTER 2024-02-16 10:55 | Outpatient (REF) | payer OTHER, SELFPAY | END 2024-02-16 10:56 | disposition home or self-care (01) | LOC: HO.HOSX 10:55 | PROVIDERS: Visit Provider Orthopaedic Surgery | DX: Z13.89 Encounter for screening for other disorder (principal) ==

== ENCOUNTER 2024-02-20 19:37 | Inpatient (IN) | payer OTHER, SELFPAY ==
[2024-02-20] VITALS (9 sets, daily range): BP systolic 85–105; BP diastolic 41–57; PULSE 84–117; RESP 12–18; TEMP 36.7–36.9; O2SAT 99–100; BMI 26.1
--- NOTE | ~2024-02-20 | CT_ITS ---
EXAMINATION: CT ABDOMEN AND PELVIS WITH CONTRAST CLINICAL INFORMATION: Abdominal pain COMPARISON: CT abdomen and pelvis 02/03/2024 TECHNIQUE: Multidetector volumetric images were obtained from the superior aspect of the liver through the pubic symphysis following administration 85 mL of Omnipaque 350 intravenous contrast. Sagittal and coronal reformatted images were obtained on the technologist's workstation. Oral contrast: No This CT examination was performed using dose optimization techniques as appropriate, variously including the following: *Automated exposure control *Adjustment of mA and/or kV according to patient size (this includes techniques or standardized protocols for targeted exams where dose is matched to indication/reason for exam; i.e. extremities or head) *Use of iterative reconstruction technique DLP: 394 mGy-cm FINDINGS: LUNG BASES: Mild posterior dependent atelectasis of the left lung base. LIVER, GALLBLADDER, AND BILIARY TREE: The liver is normal in size, shape, and attenuation. No focal hepatic lesion or biliary ductal dilatation is present. Status post cholecystectomy. Mild chronic postcholecystectomy ectasia of the common bile duct and intrahepatic biliary ducts stable compared with 02/03/2024. PANCREAS: Unremarkable. SPLEEN: Single subcentimeter rounded low density focus (series 3 image 22) which is benign in appearance and on the basis of this examination warrants no additional imaging follow-up. ADRENAL GLANDS: Unremarkable. KIDNEYS AND URETERS: 1.6 cm rounded low density focus inferior pole left kidney likely representing a benign, simple cyst 14 no additional imaging follow-up on the basis of this exam. No hydronephrosis. No perinephric inflammatory changes. BLADDER: Unremarkable. GASTROINTESTINAL TRACT: Moderate sigmoid diverticulosis. Concentric contiguous mural thickening of the middle and distal segments of the sigmoid colon similar to findings present 02/03/2024. No focal inflammatory changes of the adjacent sigmoid mesentery. No free intraperitoneal fluid or gas collections noted. No intestinal dilatation visualized. Normal appearance of the terminal ileum. The appendix is not visualized no free intraperitoneal fluid or gas collections identified. Normal appearance of the stomach and duodenum. ABDOMINAL WALL: Umbilical hernia containing fat without inflammatory changes measuring 1 cm. LYMPH NODES: Normal. VASCULAR: Diffuse calcific and noncalcific atherosclerosis PELVIC VISCERA: Normal appearance of the uterus aside from mild uterine atrophy. No adnexal lesions. OSSEOUS STRUCTURES: No suspicious skeletal lesions. CT/CT abdomen pelvis w IV con IMPRESSION: *Moderate concentric contiguous mural inflammatory changes of the middle and distal portions of the sigmoid colon. Similar findings were present on the 02/03/2024 examination. Additionally, moderate diffuse sigmoid diverticulosis is present. Overall, findings are suspicious for sigmoid colitis. Typically, diverticulitis presents with focal inflammatory changes. The diffuse inflammatory changes of the sigmoid colon could represent multifocal uncomplicated diverticulitis or colitis of the sigmoid colon on related to diverticulitis. No evidence of intestinal perforation. No free intraperitoneal fluid or gas collections. *Status post cholecystectomy. Electronically signed by: Raymundo Moffett MD 02/21/2024 12:52 AM [facility]
[2024-02-20 20:02] LABS: MANUAL DIFF FLAG NO
[2024-02-20 20:03] LABS: Basophils Percent Auto 0.3 % (0-2); Hematocrit 31.5 % (37.0-47.0); Hemoglobin 11.2 g/dl (12.0-16.0); Imm Gran Abs Auto 0.04 X10*3/uL (0.00-0.03); Imm Gran Pct Auto 0.4 % (0.0-0.4); Lymphocytes Absolute Auto 1.3 X10*3/uL (1.2-4.9); Lymphocytes Percent Auto 12.6 % (20-40); Mean Corpuscular HGB Conc 35.6 g/dl (31.0-35.0); Mean Corpuscular Hemoglobin 27.9 pg (27.0-33.0); Mean Corpuscular Volume 78.6 fL (80.0-98.0); Mean Platelet Volume 8.4 fL (9.4-12.3); Monocytes Absolute Auto 0.6 X10*3/uL (0.1-1.2); Monocytes Percent Auto 5.8 % (2-11); Neutrophils Absolute Auto 8.3 x10*3/uL (2.0-8.3); Neutrophils Percent Auto 80.9 % (45-73); Platelet Count 216 X10*3/uL (160-400); Red Blood Count 4.01 X10*6/uL (4.20-5.50); Red Cell Distribution Width 14.8 % (11.0-16.0); White Blood Count 10.2 X10*3/uL (4.8-10.8)
[2024-02-20 20:12] LABS: Prothrombin Time 11.2 SEC (10.9-12.4)
[2024-02-20 20:26] LABS: Troponin-I High Sensitivity 11.4 ng/L (<3.5-17.0)
--- NOTE | 2024-02-20 20:43 | ED.ABDPAIN ---
HPI - Abdominal Pain General Chief Complaint: Abdominal Pain Stated Complaint: ABD PAIN, RECTAL PAIN Time Seen by Provider: 02/20/24 20:43 Source: patient Mode of arrival: ambulatory Limitations: no limitations History of Present Illness ED Provider: rivera TUCKER narrative: Patient is 63 years old with history of diabetes, CKD hypertension, hypokalemia status post cholecystectomy and appendectomy chronic abdominal pain was seen here on 02/02 CT scan was without any acute finding does have history of GERD and IBS had slight nausea no vomiting no diarrhea does have some bright red blood in his stool no fever no chills Related Data Home Medications ?Medication ?Instructions ?Recorded ?Confirmed atorvastatin 40 mg tablet 1 tab PO BEDTIME 01/12/20 12/05/23 calcium 600 mg (as 1 tab PO BID 01/12/20 12/05/23 carbonate)-vitamin D3 10 mcg (400 unit) tablet cetirizine 10 mg tablet 1 tab PO QAM 01/12/20 12/05/23 oxcarbazepine 150 mg tablet 1 tab PO BID PRN Restless Leg(S) 01/12/20 12/05/23 sertraline 50 mg tablet 50 mg PO DAILY 08/20/20 12/05/23 albuterol sulfate 90 mcg/actuation 2 puff PO QID PRN Wheezing 02/18/21 12/05/23 aerosol inhaler fluticasone propionate 110 2 puff inhalation BID 02/18/21 12/05/23 mcg/actuation HFA aerosol inhaler (Flovent HFA) furosemide 40 mg tablet 1.5 tab PO QAM 02/18/21 12/05/23 insulin glargine 100 unit/mL (3 12 unit subcut BEDTIME 02/18/21 12/05/23 mL) subcutaneous pen (Lantus Solostar U-100 Insulin) amlodipine 2.5 mg tablet 2.5 mg PO QPM 09/19/21 12/05/23 ferrous sulfate 325 mg (65 mg 325 mg PO DAILY 09/19/21 12/05/23 iron) tablet (FeroSul) olmesartan 40 mg tablet 40 mg PO DAILY 09/19/21 12/05/23 topiramate 100 mg tablet 100 mg PO BID 09/19/21 12/05/23 folic acid 1 mg tablet 1 mg PO DAILY 09/07/24 09/07/24 Previous Rx's ?Medication ?Instructions ?Recorded sitagliptin phosphate 100 mg 100 mg PO DAILY 30 days #30 tabs 08/15/21 tablet (Januvia) bacitracin 500 unit/gram topical 1 appl topical TID 7 days #144 ea 10/24/23 packet sennosides 8.6 mg tablet (Senna 17.2 mg (2 x 8.6 mg) PO BEDTIME 11/03/23 Laxative) #60 tabs clindamycin HCl 300 mg capsule 300 mg PO TID #15 caps 12/09/23 levofloxacin 500 mg tablet 500 mg PO DAILY 5 days #5 tabs 12/09/23 imipramine HCl 25 mg tablet 50 mg (2 x 25 mg) PO BEDTIME #60 01/15/24 tabs omeprazole 20 mg capsule,delayed 20 mg PO QAM #30 caps 01/15/24 release Allergies Allergy/AdvReac Type Severity Reaction Status Date / Time hydrocodone [From Vicodin] Allergy Mild ITCHING Verified 02/20/24 19:46 SHANAE Inhibitors Allergy Unknown UNKNOWN Verified 02/20/24 19:46 [SHANAE INHIBITORS] ENVIROMENTAL Allergy Mild HAYFEVER Uncoded 02/20/24 19:46 lysol wipes Allergy Mild Hives Uncoded 02/20/24 19:46 [place] Allergy Unknown NEPHROPATHY Uncoded 02/20/24 19:46 Review of Systems Review of Systems Yes all other systems are reviewed and are negative [facility] Past Medical History Medical History Seizures Syncope History of TIA (transient ischemic attack) CHF (congestive heart failure) Essential hypertension Hyperlipidemia Type 2 diabetes mellitus with chronic kidney disease Chronic kidney disease, stage 3 Anemia COPD (chronic obstructive pulmonary disease) Asthma JANET (obstructive sleep apnea) Nicotine dependence, cigarettes, uncomplicated Restless leg syndrome Obesity Tubular adenoma of colon IBS (irritable bowel syndrome) Constipation Primary osteoarthritis of right knee Osteoarthritis Right knee pain History of migraine Surgical History History of appendectomy History of cholecystectomy History of esophagogastroduodenoscopy (EGD) History of colonoscopy History of total left knee replacement (TKR) History of arthroscopy of left knee History of arthroscopy of right knee History of elbow surgery History of surgery on wrist History of carpal tunnel release of both wrists History of lumpectomy of right breast Family History Family History Father Hx of gout Diabetes Mother Diabetes Daughter Pre-diabetes Brother Cancer Social History Social History Household Members: None Housing: Apartment Do you presently have visiting nurse or other home services: No Alcohol intake: never Patient Tobacco Use Status: Current everyday Tobacco user Tobacco use type: Cigarette Cigarette Packs Per Day: 1 Cigarettes Per Day: 20.0 Years Smoked: onset 16yo, 3ppd x 47yrs, now 2ppd, >100pyh Second Hand Smoke Exposure: No Advance Directives: Yes Advance Directives on File: Yes Advance Directives Date on File: 02/18/21 service: No Current occupational status: disabled Current occupation: left hand dominant Physical Exam ED Vital Signs: Vital Signs - 24 hr 02/20/24 19:44 02/20/24 20:17 02/20/24 20:21 Temperature 98.0 F 98.5 F Pulse Rate 88 92 108 H Respiratory Rate 18 12 14 Blood Pressure 105/57 L 87/45 L 85/41 L Pulse Oximetry 99 100 99 Oxygen Delivery Method Room Air Room Air Room Air 02/20/24 20:47 02/20/24 21:06 02/20/24 22:16 Temperature 98.3 F Pulse Rate 109 H 117 H 104 H Respiratory Rate 14 14 14 Blood Pressure 87/57 L 102/52 L 87/41 L Pulse Oximetry 99 100 99 Oxygen Delivery Method Room Air Room Air Room Air 02/20/24 22:24 02/20/24 22:50 02/20/24 22:52 Temperature 98.3 F Pulse Rate 111 H 111 H 111 H Respiratory Rate 18 13 13 Blood Pressure 92/44 L 104/53 L 104/53 L Pulse Oximetry 99 99 Oxygen Delivery Method Room Air Room Air 02/21/24 01:35 Temperature 98.1 F Pulse Rate 94 Respiratory Rate 18 Blood Pressure 123/51 L Pulse Oximetry 100 Oxygen Delivery Method Room Air BMI result Body Mass Index 26.1 Appearance: Alert. Oriented X3. No acute distress. Eyes: No pallor or icterus ENT: Pharynx normal. Oral Mucosa moist Neck: Normal inspection. Neck supple. CVS: Normal heart rate and rhythm. Pulses normal. Respiratory: No respiratory distress. Equal air entry bilateral, no wheezing/rales/rhonchi Abdomen: Soft and mild tenderness in epigastric area no rebound tenderness or guarding Bowel sounds are present, no mass palpable, no CVA tenderness Skin: Skin warm and dry. Normal skin color. Normal skin turgor. Extremities: No lower extremity edema. No calf tenderness Neuro: Oriented X 3. No motor deficit. Medical Decision Making Medical Decision Making [facility] Narrative: Patient with upper abdominal pain with gastritis noted to have significant hypokalemia of 2 does take furosemide and had hypokalemia before patient has received IV potassium and p.o. potassium will admit patient for significant hypokalemia CT scan of the abdomen showed colitis /diverticulitis patient also does have UTI clinically patient is not septic will start on Zosyn per hospitalist patient does not have any significant diarrhea Differential Diagnosis Differential Diagnoses: The differential diagnosis associated with the presentation includes Admission/Observation Consideration of admission/observation: Escalation of care including admission/observation considered Consult Healthcare Provider Management of the patient was discussed with: Hospitalist Lab Data [facility] Lab Attestation statement: I reviewed the patient's lab results. 02/20/24 19:57 02/20/24 20:58 Labs: Lab Results 02/20/24 02/20/24 02/20/24 Range/Units 19:57 20:58 22:39 WBC 10.2 (4.8-10.8) X10*3/uL RBC 4.01 L D (4.20-5.50) X10*6/uL Hgb 11.2 L D (12.0-16.0) g/dl Hct 31.5 L (37.0-47.0) % MCV 78.6 L (80.0-98.0) fL MCH 27.9 (27.0-33.0) pg MCHC 35.6 H (31.0-35.0) g/dl RDW 14.8 (11.0-16.0) % Plt Count 216 (160-400) X10*3/uL MPV 8.4 L (9.4-12.3) fL Immature Gran % (Auto) 0.4 (0.0-0.4) % Neut % (Auto) 80.9 H (45-73) % Lymph % (Auto) 12.6 L (20-40) % [place] % (Auto) 5.8 (2-11) % Eos % (Auto) 0.0 (0-4) % Baso % (Auto) 0.3 (0-2) % Lymph # (Auto) 1.3 (1.2-4.9) X10*3/uL [place] # (Auto) 0.6 (0.1-1.2) X10*3/uL Eos # (Auto) 0.0 (0.0-0.4) X10*3/uL Baso # (Auto) 0.0 (0.0-0.2) X10*3/uL Abs Immat Gran (auto) 0.04 H (0.00-0.03) X10*3/uL Absolute Neuts (auto) 8.3 (2.0-8.3) x10*3/uL Absolute Nucleated RBC 0.000 (0.0-0.012) X10*3/uL Nucleated RBC % (auto) 0.0 (0.0-0.2) /100WBC PT 11.2 (10.9-12.4) SEC INR 1.0 (0.9-1.1) Sodium 128 L (135-145) mmol/L Potassium 2.1 L* D 2.0 L* (3.3-5.1) mmol/L Chloride 95 L (96-108) mmol/L Carbon Dioxide 21 L (22-29) mmol/L Anion Gap 14 (12-20) BUN 28 H (9-16) mg/dL Creatinine 1.21 (0.5-1.4) mg/dL Estim Creat Clear Calc 35.4 Estimated GFR 45 Random Glucose 100 (60-115) mg/dL Calcium 8.6 D (8.4-10.2) mg/dL Magnesium 1.8 (1.6-2.6) mg/dL Total Bilirubin 0.3 (0.0-1.0) mg/dL Direct Bilirubin 0.2 (0.0-0.5) mg/dL AST 19 (5-31) U/L ALT < 6 (0-31) U/L Alkaline Phosphatase 114 (39-117) U/L Troponin I High Sens 11.4 (<3.5-17.0) ng/L Total Protein 6.3 L (6.5-8.0) g/dL Albumin 3.1 L (3.5-5.0) g/dL Lipase 107 H (8-78) U/L Urine Color Yellow Urine Appearance Cloudy Urine pH 6.0 (5.0-9.0) Ur Specific [place] 1.010 (1.005-1.025) Urine Protein Trace (Neg-Trace) mg/dL Urine Glucose (UA) Negative (Negative) mg/dL Urine Ketones Negative (Negative) mg/dL Urine Blood Large (3+) H (Negative) Urine Nitrite Negative (Negative) Ur Leukocyte Esterase Large (3+) H (Negative) Urine RBC 6-10 H (0-2) /HPF Urine WBC >50 H (0-5) /HPF Ur Squamous Epith Cells 6-10 (0-2) /HPF Urine Bacteria 1+ (None Seen) Hyaline Casts 0-2 (0-2) /LPF Independent Interpretation I performed an independent interpretation of an: EKG Interpretation: Sinus tach here with heart rate of 113 first-degree AV block and premature PACs no acute ST elevation no ischemic changes Radiology Impression Discussion of test interpretation with radiology: I have reviewed the radiologist's reading. Radiologist Impression: RDER #: [id number] CT/CT abdomen pelvis w IV con IMPRESSION: *Moderate concentric contiguous mural inflammatory changes of the middle and distal portions of the sigmoid colon. Similar findings were present on the 02/03/2024 examination. Additionally, moderate diffuse sigmoid diverticulosis is present. Overall, findings are suspicious for sigmoid colitis. Typically, diverticulitis presents with focal inflammatory changes. The diffuse inflammatory changes of the sigmoid colon could represent multifocal uncomplicated diverticulitis or colitis of the sigmoid colon on related to diverticulitis. No evidence of intestinal perforation. No free intraperitoneal fluid or gas collections. *Status post cholecystectomy. Electronically signed by: Raymundo Moffett MD 02/21/2024 12:52 AM [facility] Medications Administered Generic Name Dose Route Start Last Admin Trade Name Freq PRN Reason Stop Dose Admin Potassium Chloride 10 meq in 100 mls @ 100 mls/hr 02/20/24 23:15 02/21/24 01:30 Potassium Chloride/H20 IV 02/21/24 03:14 100 mls/hr Q1H INDU Administration Discontinued Medications Generic Name Dose Route Start Last Admin Trade Name Freq PRN Reason Stop Dose Admin Famotidine 20 mg 02/20/24 21:45 02/20/24 21:52 Famotidine/Pf 20 Mg/2 Ml Vial IVPUSH 02/20/24 21:46 20 mg ONCE ONE Administration Potassium Chloride 10 meq in 100 mls @ 100 mls/hr 02/20/24 21:00 02/20/24 23:16 Potassium Chloride/H20 IV 02/20/24 22:59 Infused Q1H INDU Infusion Sodium Chloride 1,000 mls @ 999 mls/hr 02/20/24 20:57 02/20/24 22:04 Ns IV 02/20/24 21:57 Infused .Q1H1M ONE Infusion Potassium Chloride 10 meq in 100 mls @ 100 mls/hr 02/20/24 21:15 02/20/24 22:16 Potassium Chloride/H20 IV 02/20/24 23:14 Not Given Q1H INDU Iohexol 85 ml 02/20/24 23:26 02/20/24 23:27 Iohexol 350 Mg/Ml 100 Ml Infus..Btl IV 02/20/24 23:27 85 ml ONCE ONE Administration Morphine Sulfate 4 mg 02/20/24 21:45 02/20/24 21:51 Morphine Sulfate 4 Mg/Ml Cartridge IVPUSH 02/20/24 21:46 4 mg ONCE ONE Administration Protocol Ondansetron HCl 4 mg 02/20/24 21:45 02/20/24 21:52 Ondansetron Hcl 4 Mg/2 Ml Vial IVPUSH 02/20/24 21:46 4 mg ONCE ONE Administration Potassium Chloride 40 meq 02/20/24 20:46 02/20/24 20:59 Potassium Chloride Er 20 Meq Tab.Er.Prt PO 02/20/24 20:47 40 meq ONCE ONE Administration Potassium Chloride 40 meq 02/21/24 00:06 02/21/24 01:30 Potassium Chloride Er 20 Meq Tab.Er.Prt PO 02/21/24 00:07 40 meq ONCE ONE Administration Discharge Plan Discharge Clinical Impression: Acute hypokalemia, Colitis, UTI (urinary tract infection) Patient Disposition: Admitted As Inpatient Print Language: Pakistani
[2024-02-20 20:44] LABS: Alanine Aminotransferase < 6 U/L (0-31); Albumin Level 3.1 g/dL (3.5-5.0); Alkaline Phosphatase 114 U/L (39-117); Anion Gap 14 (12-20); Aspartate Amino Transferase 19 U/L (5-31); Bilirubin Direct 0.2 mg/dL (0.0-0.5); Bilirubin Total 0.3 mg/dL (0.0-1.0); Blood Urea Nitrogen 28 mg/dL (9-16); Calcium 8.6 mg/dL (8.4-10.2); Carbon Dioxide 21 mmol/L (22-29); Chloride 95 mmol/L (96-108); Creatinine Clr Calc Pharmacy 35.4; Estimated Glomerular Filt Rate 45; Glucose Random 100 mg/dL (60-115); Lipase 107 U/L (8-78); Potassium 2.1 mmol/L (3.3-5.1); Sodium 128 mmol/L (135-145); Total Protein 6.3 g/dL (6.5-8.0)
--- NOTE | 2024-02-20 20:46 | ECG_ITS ---
Test Reason : LOW POTASSIUM Blood Pressure : / mmHG Vent. Rate : 113 BPM Atrial Rate : 147 BPM P-R Int : 224 ms QRS Dur : 080 ms QT Int : 356 ms P-R-T Axes : 083 031 268 degrees QTc Int : 488 ms Sinus tachycardia with 1st degree A-V block with Premature atrial complexes Cannot rule out Inferior infarct , age undetermined Anteroseptal infarct , age undetermined Abnormal ECG When compared with ECG of 03-FEB-2023 21:30, Frequent PACs are present Referred By: Reggie Kaplan Electronically Signed By:NANCY BELL MD
[2024-02-20] MEDS: Potassium Chloride ER 20 MEQ TAB.ER.PRT 40 MEQ PO (20:59)
[2024-02-20] MEDS: Potassium Chloride/H20 10 MEQ/100 ML PIGGYBACK 100 MEQ IV ×3 (21:03→23:32)
[2024-02-20] MEDS: 0.9 % Sodium Chloride 1,000 ML 999 ML IV (21:03)
[2024-02-20 21:35] LABS: Magnesium 1.8 mg/dL (1.6-2.6)
[2024-02-20] MEDS: Morphine Sulfate 4 MG/ML CARTRIDGE IVPUSH (21:51)
[2024-02-20] MEDS: ondansetron HCL 4 MG/2 ML VIAL IVPUSH (21:52)
[2024-02-20] MEDS: Famotidine/PF 20 MG/2 ML VIAL IVPUSH (21:52)
[2024-02-20 22:44] LABS: Appearance Urine Cloudy; Color Urine Yellow; Glucose Urine UA Negative (Negative); Leukocyte Esterase Urine Large (3+) (Negative); Nitrite Urine Negative (Negative); UMIC TRIGGER UACC YES; Urine Blood Large (3+) (Negative); Urine Ketones Negative (Negative); Urine Protein Trace mg/dL (Neg-Trace)
[2024-02-20 22:47] LABS: Bacteria Urine 1+ (None Seen); Hyaline Casts Urine 0-2 /LPF (0-2); UACC Culture Trigger YES; WBC Urine >50 /HPF (0-5)
[2024-02-20] MEDS: iohexoL 350 MG/ML 100 ML INFUS..BTL 85 ML IV (23:27)
[2024-02-21] VITALS (17 sets, daily range): BP systolic 90–141; BP diastolic 48–79; PULSE 82–99; RESP 12–20; TEMP 36.3–37; O2SAT 97–100
--- NOTE | 2024-02-21 01:24 | PC.NURSE ---
Patient is in the bathroom at this time. Alert & oriented, denies complaints at this time. Delayed Potassium infusion due to stopping to perform CT scan earlier. Next Potassium IV infusion to be given upon return to bed from bathroom. Oral Potassium to also be given.
[2024-02-21] MEDS: Potassium Chloride ER 20 MEQ TAB.ER.PRT 40 MEQ PO ×2 (01:30→09:11)
[2024-02-21] MEDS: Potassium Chloride/H20 10 MEQ/100 ML PIGGYBACK 100 MEQ IV ×2 (01:30→04:02)
[2024-02-21] MEDS: Morphine Sulfate 4 MG/ML CARTRIDGE IVPUSH ×2 (01:52→13:47)
--- NOTE | 2024-02-21 01:56 | PM.IMHP ---
History of Present Illness Date of Service: 02/21/24 Chief Complaint: Abd pain This is a 63-year-old female with pertinent history of insulin-dependent diabetes mellitus, hypertension, gastroesophageal reflux disease, chronic kidney disease, mood disorder, asthma not on home oxygen who presents to the emergency department for evaluation of abdominal pain. Patient states she has chronic abdominal pain but over the last 5-7 days, the intensity and character of pain changed. Initially it was intermittent but the pain progressed to being constant. Also has been having nausea with poor p.o. intake. No vomiting or loose stools. States she has hemorrhoids and has bright red blood when she wipes. No melena or hematochezia. Endorses increased urinary frequency and urgency. No fever, chills, chest pain, palpitations, shortness of breath. In the emergency department, potassium found to be 2. Imaging with diverticulitis and urine concerning for UTI. Review of Systems Constitutional: Constitutional: Reports fatigue, Reports malaise and Reports poor appetite Cardiovascular: Cardiovascular: Reports no additional cardiovascular complaints Respiratory: Respiratory: Reports no additional respiratory complaints Gastrointestinal: Gastrointestinal: Reports abdominal pain and Reports nausea Genitourinary: Genitourinary: Reports no additional female genitourinary complaints Endocrine: Endocrine: Reports fatigue PMFSH Medical History Seizures Syncope History of TIA (transient ischemic attack) CHF (congestive heart failure) Essential hypertension Hyperlipidemia Type 2 diabetes mellitus with chronic kidney disease Chronic kidney disease, stage 3 Anemia COPD (chronic obstructive pulmonary disease) Asthma JANET (obstructive sleep apnea) Nicotine dependence, cigarettes, uncomplicated Restless leg syndrome Obesity Tubular adenoma of colon IBS (irritable bowel syndrome) Constipation Primary osteoarthritis of right knee Osteoarthritis Right knee pain History of migraine Family History Father Hx of gout Diabetes Mother Diabetes Daughter Pre-diabetes Brother Cancer Surgical History History of appendectomy History of cholecystectomy History of esophagogastroduodenoscopy (EGD) History of colonoscopy History of total left knee replacement (TKR) History of arthroscopy of left knee History of arthroscopy of right knee History of elbow surgery History of surgery on wrist History of carpal tunnel release of both wrists History of lumpectomy of right breast Social History Household Members: None Housing: Apartment Do you presently have visiting nurse or other home services: No Alcohol intake: never Patient Tobacco Use Status: Current everyday Tobacco user Tobacco use type: Cigarette Cigarette Packs Per Day: 1 Cigarettes Per Day: 20.0 Years Smoked: onset 16yo, 3ppd x 47yrs, now 2ppd, >100pyh Second Hand Smoke Exposure: No Advance Directives: Yes Advance Directives on File: Yes Advance Directives Date on File: 02/18/21 service: No Current occupational status: disabled Current occupation: left hand dominant Meds Allergies Allergy/AdvReac Type Severity Reaction Status Date / Time hydrocodone [From Vicodin] Allergy Mild ITCHING Verified 02/20/24 19:46 SHANAE Inhibitors Allergy Unknown UNKNOWN Verified 02/20/24 19:46 [SHANAE INHIBITORS] ENVIROMENTAL Allergy Mild HAYFEVER Uncoded 02/20/24 19:46 lysol wipes Allergy Mild Hives Uncoded 02/20/24 19:46 [place] Allergy Unknown NEPHROPATHY Uncoded 02/20/24 19:46 Active Medications: Current Medications Potassium Chloride (Potassium Chloride/H20) 10 meq in 100 mls @ 100 mls/hr IV Q1H INDU Stop: 02/21/24 03:14 Last Admin: 02/21/24 01:30 Dose: 100 mls/hr Piperacillin Sod/Tazobactam (Sod 3.375 gm/ Sodium Chloride) 50 mls @ 100 mls/hr IV ONCE ONE Stop: 02/21/24 02:17 Morphine Sulfate (Morphine Sulfate 4 Mg/Ml Cartridge) 4 mg IVPUSH Q4H PRN; Protocol PRN Reason: Pain, Severe (Pain Scale 7-10) Last Admin: 02/21/24 01:52 Dose: 4 mg Home Medications ?Medication ?Instructions ?Recorded ?Confirmed ?Last Taken ?Type atorvastatin 40 mg tablet 1 tab PO BEDTIME 01/12/20 12/05/23 12/05/23 History calcium 600 mg (as 1 tab PO BID 01/12/20 12/05/23 12/05/23 History carbonate)-vitamin D3 10 mcg (400 unit) tablet cetirizine 10 mg tablet 1 tab PO QAM 01/12/20 12/05/23 12/05/23 History oxcarbazepine 150 mg tablet 1 tab PO BID PRN Restless Leg(S) 01/12/20 12/05/23 12/05/23 History sertraline 50 mg tablet 50 mg PO DAILY 08/20/20 12/05/23 12/05/23 History albuterol sulfate 90 mcg/actuation 2 puff PO QID PRN Wheezing 02/18/21 12/05/23 12/05/23 History aerosol inhaler fluticasone propionate 110 2 puff inhalation BID 02/18/21 12/05/23 12/05/23 History mcg/actuation HFA aerosol inhaler (Flovent HFA) furosemide 40 mg tablet 1.5 tab PO QAM 02/18/21 12/05/23 12/05/23 History insulin glargine 100 unit/mL (3 12 unit subcut BEDTIME 02/18/21 12/05/23 12/05/23 History mL) subcutaneous pen (Lantus Solostar U-100 Insulin) amlodipine 2.5 mg tablet 2.5 mg PO QPM 09/19/21 12/05/23 12/05/23 History ferrous sulfate 325 mg (65 mg 325 mg PO DAILY 09/19/21 12/05/23 12/05/23 History iron) tablet (FeroSul) olmesartan 40 mg tablet 40 mg PO DAILY 09/19/21 12/05/23 12/05/23 History topiramate 100 mg tablet 100 mg PO BID 09/19/21 12/05/23 12/05/23 History folic acid 1 mg tablet 1 mg PO DAILY 12/05/23 12/05/23 12/05/23 History Physical Exam Vital Signs and Narrative: Vital Signs: Last Vital Signs Temp 98.1 F 02/21/24 01:35 Pulse 94 02/21/24 01:35 Resp 18 02/21/24 01:52 BP 123/51 L 02/21/24 01:35 Pulse Ox 100 02/21/24 01:35 O2 Del Method Room Air 02/21/24 01:35 BMI result Body Mass Index 26.1 Middle-aged female lying in bed in no distress Neck supple, no JVD Regular rate and rhythm, S1-S2 heard Regular breath sounds bilaterally, no wheezing or crackles appreciated Abdomen with epigastric and left lower quadrant tenderness, no rigidity Patient is awake, alert and oriented to self, place, time and person ; no focal motor deficit Psych: Normal mood No pedal edema Results Labs 02/20/24 19:57 02/20/24 20:58 Labs: Laboratory Results - last 24 hr 02/20/24 02/20/24 02/20/24 19:57 20:58 22:39 MCV 78.6 L MCH 27.9 MCHC 35.6 H RDW 14.8 Plt Count 216 MPV 8.4 L Immature Gran % (Auto) 0.4 Neut % (Auto) 80.9 H Lymph % (Auto) 12.6 L [place] % (Auto) 5.8 Eos % (Auto) 0.0 Baso % (Auto) 0.3 Lymph # (Auto) 1.3 [place] # (Auto) 0.6 Eos # (Auto) 0.0 Baso # (Auto) 0.0 Abs Immat Gran (auto) 0.04 H Absolute Neuts (auto) 8.3 Absolute Nucleated RBC 0.000 Nucleated RBC % (auto) 0.0 PT 11.2 INR 1.0 Anion Gap 14 Estim Creat Clear Calc 35.4 Estimated GFR 45 Random Glucose 100 Calcium 8.6 D Magnesium 1.8 Total Bilirubin 0.3 Direct Bilirubin 0.2 AST 19 ALT < 6 Alkaline Phosphatase 114 Troponin I High Sens 11.4 Total Protein 6.3 L Albumin 3.1 L Lipase 107 H Urine Color Yellow Urine Appearance Cloudy Urine pH 6.0 Ur Specific [place] 1.010 Urine Protein Trace Urine Glucose (UA) Negative Urine Ketones Negative Urine Blood Large (3+) H Urine Nitrite Negative Ur Leukocyte Esterase Large (3+) H Urine RBC 6-10 H Urine WBC >50 H Ur Squamous Epith Cells 6-10 Urine Bacteria 1+ Hyaline Casts 0-2 Imaging Radiologist's Impressions: Impressions Abdomen/Pelvis CT 02/20/24 23:15 IMPRESSION: *Moderate concentric contiguous mural inflammatory changes of the middle and distal portions of the sigmoid colon. Similar findings were present on the 02/03/2024 examination. Additionally, moderate diffuse sigmoid diverticulosis is present. Overall, findings are suspicious for sigmoid colitis. Typically, diverticulitis presents with focal inflammatory changes. The diffuse inflammatory changes of the sigmoid colon could represent multifocal uncomplicated diverticulitis or colitis of the sigmoid colon on related to diverticulitis. No evidence of intestinal perforation. No free intraperitoneal fluid or gas collections. *Status post cholecystectomy. Electronically signed by: Raymundo Moffett MD 02/21/2024 12:52 AM [facility] [place] and Plan (1) Diverticulitis: Status: Acute (2) UTI (urinary tract infection): Status: Acute (3) Hypokalemia: Status: Acute Plan This is a 63-year-old female with pertinent history of insulin-dependent diabetes mellitus, hypertension, gastroesophageal reflux disease, chronic kidney disease, mood disorder, asthma not on home oxygen who presents to the emergency department for evaluation of abdominal pain. #. Acute uncomplicated diverticulitis: Will admit patient with IV Zosyn and IV opioids p.r.n. for analgesia. NPO for bowel rest. Continue IV crystalloid resuscitation. No sepsis . Will need outpatient colonoscopy #. Acute UTI: On antibiotics as above. Follow urine culture #. Hypokalemia: Repleting #. Hyponatremia: Monitor with crystalloid resuscitation. Urine studies pending #. Insulin-dependent diabetes mellitus: Initiating Accu-Cheks sliding scale insulin every 6 hours #. Mixed hyperlipidemia: On statin #. Hypertension: Continue home antihypertensives #. Mood disorder: Continue home mood stabilizers Med rec pending DVT prophylaxis: Lovenox Full code Admit as inpatient and will require two night minimum hospital stay for IV antibiotics (as above), which is not possible in a lesser acute setting. Quality Stroke Does the patient have a stroke diagnosis?: No VTE Prior VTE?: No VTE Risk Level:: Medical - moderate - high VTE Device Contraindication: Treatment Not Indicated VTE Drug Contraindication: N/A - Med Ordered
[2024-02-21] MEDS: Piperacillin Sodium/Tazobactam 3.375 GM in 0.9 % Sodium Chloride 50 ML IV ×4 (02:38→22:32)
[2024-02-21] MEDS: Lactated Ringers 1,000 ML 100 ML IVCONT ×2 (02:41→12:05)
[2024-02-21 03:49] LABS: Glucose, Whole Blood 87 mg/dL (60-115)
[2024-02-21 05:40] LABS: MANUAL DIFF FLAG NO
[2024-02-21 05:48] LABS: Basophils Percent Auto 0.4 % (0-2); Hematocrit 31.8 % (37.0-47.0); Hemoglobin 10.9 g/dl (12.0-16.0); Imm Gran Abs Auto 0.05 X10*3/uL (0.00-0.03); Imm Gran Pct Auto 0.6 % (0.0-0.4); Lymphocytes Percent Auto 23.7 % (20-40); Mean Corpuscular HGB Conc 34.3 g/dl (31.0-35.0); Mean Corpuscular Hemoglobin 27.5 pg (27.0-33.0); Mean Corpuscular Volume 80.1 fL (80.0-98.0); Mean Platelet Volume 8.8 fL (9.4-12.3); Monocytes Absolute Auto 0.4 X10*3/uL (0.1-1.2); Monocytes Percent Auto 5.3 % (2-11); Neutrophils Absolute Auto 5.8 x10*3/uL (2.0-8.3); Platelet Count 231 X10*3/uL (160-400); Red Blood Count 3.97 X10*6/uL (4.20-5.50); Red Cell Distribution Width 15.3 % (11.0-16.0); White Blood Count 8.3 X10*3/uL (4.8-10.8)
[2024-02-21 05:59] LABS: Anion Gap 16 (12-20); Blood Urea Nitrogen 23 mg/dL (9-16); Calcium 8.5 mg/dL (8.4-10.2); Carbon Dioxide 15 mmol/L (22-29); Chloride 102 mmol/L (96-108); Creatinine Clr Calc Pharmacy 43.8; Estimated Glomerular Filt Rate 57; Glucose Random 82 mg/dL (60-115); Potassium 3.3 mmol/L (3.3-5.1); Sodium 130 mmol/L (135-145)
--- NOTE | 2024-02-21 06:17 | PC.NURSE ---
Patient over the past 2 hours has used the bathroom very frequently. Dr. Montgomery notified about this. Has received 1st dose of IV antibiotics for UTI. Some of the potassium infusions have been delayed due to frequent bathroom use and repeated reminders to keep extremity straightened. Pt has two IV access sites: 20g left AC, and 22g right wrist. Both are patent, intact, functional. LR infusing as ordered at 100 ml/hour. Pain well controlled at this time with PRN morphine. Care ongoing.
[2024-02-21 06:56] LABS: Sodium Urine Random < 20.0 mmol/L
[2024-02-21 07:06] LABS: Osmolality Urine 185 mosm/kg (373-1093)
--- NOTE | 2024-02-21 08:53 | HO.PM.IMPN ---
Subjective Subjective Date of Service: 02/21/24 Interval History: abd pain improved Physical Exam Vital Signs: Vital Signs: Last Vital Signs Temp 98.1 F 02/21/24 08:39 Pulse 93 02/21/24 08:39 Resp 16 02/21/24 08:39 BP 90/52 L 02/21/24 08:39 Pulse Ox 98 02/21/24 08:39 O2 Del Method Room Air 02/21/24 08:39 BMI result Body Mass Index 26.1 General: AO X 3, no acute distress Resp: diminished bilateral, no accessory muscles used CVS: S1,S2,RRR GI: soft, non tender, non distended Neuro: motor grossly intact, alert Psych: appropriate affect, appropriate insight Objective Data Active Medications Acetaminophen (Acetaminophen 325 Mg Tablet) 650 mg PO Q6H PRN PRN Reason: Pain, Mild (Pain Scale 1-3), fever or headache Calcium Carbonate (Calcium Carbonate 750 Mg Tab.Chew) 750 mg PO Q4H PRN PRN Reason: Heartburn Enoxaparin Sodium (Enoxaparin Sodium 40 Mg/0.4 Ml Syringe) 40 mg SUBCUT Q24H INDU Glucose (Glucose Gel 15 Gm Gel..Gram.) 15 gm PO Q15M PRN; Protocol PRN Reason: per Hypoglycemia Standing Ord. Piperacillin Sod/Tazobactam (Sod 3.375 gm/ Sodium Chloride) 50 mls @ 100 mls/hr IV Q6H INDU Lactated Ringer's (Lr) 1,000 mls @ 100 mls/hr IVCONT .Q10H INDU Last Admin: 02/21/24 02:41 Dose: 100 mls/hr Documented By: HERLINDA Dextrose (D10) 250 mls @ 750 mls/hr IV Q15M PRN; Protocol PRN Reason: per Hypoglycemia Standing Ord. Insulin Human Lispro (Insulin Lispro 100 Unit/Ml 3 Ml Vial) 0 unit SUBCUT 0000,0600,1200,1800 INDU; Protocol Last Admin: 02/21/24 08:38 Dose: Not Given Documented By: LIVE Non-Admin Reason: NPO Magnesium Hydroxide (Milk Of Magnesia 30 Ml Oral.Susp) 30 ml PO DAILY PRN PRN Reason: Constipation Melatonin (Melatonin 3 Mg Tablet) 6 mg PO BEDTIME PRN PRN Reason: Insomnia Morphine Sulfate (Morphine Sulfate 4 Mg/Ml Cartridge) 4 mg IVPUSH Q4H PRN; Protocol PRN Reason: Pain, Severe (Pain Scale 7-10) Last Admin: 02/21/24 01:52 Dose: 4 mg Documented By: HERLINDA Ondansetron HCl (Ondansetron Hcl 4 Mg/2 Ml Vial) 4 mg IVPUSH Q8H PRN PRN Reason: Nausea and Vomiting Sodium Bicarbonate (Sodium Bicarbonate 650 Mg Tablet) 650 mg PO QID [facility] Stop: 02/22/24 09:00 Sodium Chloride (0.9 % Sodium Chloride Flush 3 Ml Syringe) [facility] Last Admin: 02/21/24 08:38 Dose: Not Given Documented By: LIVE Non-Admin Reason: IV Running Labs 02/21/24 05:24 02/21/24 05:25 Labs: Laboratory Results - last 24 hr 02/20/24 02/20/24 02/20/24 19:57 20:58 22:39 MCV 78.6 L MCH 27.9 MCHC 35.6 H RDW 14.8 Plt Count 216 MPV 8.4 L Immature Gran % (Auto) 0.4 Neut % (Auto) 80.9 H Lymph % (Auto) 12.6 L [place] % (Auto) 5.8 Eos % (Auto) 0.0 Baso % (Auto) 0.3 Lymph # (Auto) 1.3 [place] # (Auto) 0.6 Eos # (Auto) 0.0 Baso # (Auto) 0.0 Abs Immat Gran (auto) 0.04 H Absolute Neuts (auto) 8.3 Absolute Nucleated RBC 0.000 Nucleated RBC % (auto) 0.0 PT 11.2 INR 1.0 Anion Gap 14 Estim Creat Clear Calc 35.4 Estimated GFR 45 POC Glucose Random Glucose 100 Calcium 8.6 D Magnesium 1.8 Total Bilirubin 0.3 Direct Bilirubin 0.2 AST 19 ALT < 6 Alkaline Phosphatase 114 Troponin I High Sens 11.4 Total Protein 6.3 L Albumin 3.1 L Lipase 107 H Urine Color Yellow Urine Appearance Cloudy Urine pH 6.0 Ur Specific [place] 1.010 Urine Protein Trace Urine Glucose (UA) Negative Urine Ketones Negative Urine Blood Large (3+) H Urine Nitrite Negative Ur Leukocyte Esterase Large (3+) H Urine RBC 6-10 H Urine WBC >50 H Ur Squamous Epith Cells 6-10 Urine Bacteria 1+ Hyaline Casts 0-2 Urine Osmolality Ur Random Sodium 02/20/24 02/21/24 02/21/24 23:39 03:44 05:24 MCV 80.1 MCH 27.5 MCHC 34.3 RDW 15.3 Plt Count 231 MPV 8.8 L Immature Gran % (Auto) 0.6 H Neut % (Auto) 70.0 Lymph % (Auto) 23.7 [place] % (Auto) 5.3 Eos % (Auto) 0.0 Baso % (Auto) 0.4 Lymph # (Auto) 2.0 [place] # (Auto) 0.4 Eos # (Auto) 0.0 Baso # (Auto) 0.0 Abs Immat Gran (auto) 0.05 H Absolute Neuts (auto) 5.8 Absolute Nucleated RBC 0.000 Nucleated RBC % (auto) 0.0 PT INR Anion Gap Estim Creat Clear Calc Estimated GFR POC Glucose 87 Random Glucose Calcium Magnesium Total Bilirubin Direct Bilirubin AST ALT Alkaline Phosphatase Troponin I High Sens Total Protein Albumin Lipase Urine Color Urine Appearance Urine pH Ur Specific [place] Urine Protein Urine Glucose (UA) Urine Ketones Urine Blood Urine Nitrite Ur Leukocyte Esterase Urine RBC Urine WBC Ur Squamous Epith Cells Urine Bacteria Hyaline Casts Urine Osmolality 185 L Ur Random Sodium < 20.0 02/21/24 05:25 MCV MCH MCHC RDW Plt Count MPV Immature Gran % (Auto) Neut % (Auto) Lymph % (Auto) [place] % (Auto) Eos % (Auto) Baso % (Auto) Lymph # (Auto) [place] # (Auto) Eos # (Auto) Baso # (Auto) Abs Immat Gran (auto) Absolute Neuts (auto) Absolute Nucleated RBC Nucleated RBC % (auto) PT INR Anion Gap 16 Estim Creat Clear Calc 43.8 Estimated GFR 57 POC Glucose Random Glucose 82 Calcium 8.5 Magnesium Total Bilirubin Direct Bilirubin AST ALT Alkaline Phosphatase Troponin I High Sens Total Protein Albumin Lipase Urine Color Urine Appearance Urine pH Ur Specific [place] Urine Protein Urine Glucose (UA) Urine Ketones Urine Blood Urine Nitrite Ur Leukocyte Esterase Urine RBC Urine WBC Ur Squamous Epith Cells Urine Bacteria Hyaline Casts Urine Osmolality Ur Random Sodium Assessment and Plan (1) Acute hypokalemia: Status: Acute Plan 63F PMH diabetes, COPD, hypertension, GERD, mood disorder, CKD 3, TIA, epileptic and non epileptic seizures, presented with abd pain, hypokalemia acute diverticulitis Continue IV Zosyn, advanced diet as tolerated uti zosyn, follow up cultures DM insulin sliding scale copd inhalers, stable hypertension hold meds for relative hypotension (asymptomatic, likely dehydration not sepsis) acute hypokalemia replace and monitor CKD III stable history of non epileptic seizures with unrelated epileptic spikes on EEG continue oxcarbazine, topomax dvt prophylaxis - lovenox full code reason for continued hospitalization: awaiting cultures Quality Stroke Does the patient have a stroke diagnosis?: No VTE Prior VTE?: No VTE Risk Level:: Medical - moderate - high VTE Device Contraindication: Treatment Not Indicated VTE Drug Contraindication: N/A - Med Ordered
--- NOTE | 2024-02-21 08:54 | PHA.MEDREC ---
Addendum entered by Jacob Maradiaga RPh 02/21/24 12:01: Med rec reviewed. Original Note: Pharmacy Consult ? Medication Reconciliation Pharmacy has completed the medication reconciliation. Spoke with patient to confirm, she is a poor historian. She was recently prescribed Keppra but patient reports she did not want the doctor to fill that and has not picked it up/started taking it (cannot confirm miner pick [facility] closed on weekends). I asked what she is taking for seizures and she said topamax. I asked about oxcarbazapine and she said that is for migraines but takes it BID. Will leave on those two on home med list. She is no longer taking vitamin B12, D3 (alone), baby aspirin, and iron. She said her doctor discontinued her Lantus and last took it about 3 months ago and is not taking any insulin right now. She said her doctor was supposed to start her on a new injectable but has not done this yet. She reports she only takes 1/2 tablet of the furosemide and not 1.5 tabs. Patient reports she last took her medications Thursday morning.
[2024-02-21 09:17] LABS: Glucose, Whole Blood 69 mg/dL (60-115)
[2024-02-21 10:00] LABS: Free T4 (Free Thyroxine) 1.29 ng/dL (0.71-1.85); Thyroid Stimulating Hormone 0.01 uIU/mL (0.32-4.0)
[2024-02-21] MEDS: Sertraline HCL 50 MG TABLET PO (11:16)
[2024-02-21] MEDS: OXcarbazepine 150 MG TABLET PO ×2 (11:16→22:20)
[2024-02-21] MEDS: Topiramate 100 MG TABLET PO ×2 (11:17→22:20)
[2024-02-21] MEDS: Sodium Bicarbonate 650 MG TABLET PO ×4 (11:18→22:20)
[2024-02-21] MEDS: 0.9 % Sodium Chloride Flush 3 ML SYRINGE IVFLUSH (11:20)
[2024-02-21] MEDS: Enoxaparin Sodium 40 MG/0.4 ML SYRINGE SUBCUT (11:20)
[2024-02-21 12:42] LABS: Glucose, Whole Blood 79 mg/dL (60-115)
--- NOTE | 2024-02-21 12:49 | MHC.CM.PN ---
IMM 02/21/24, Pt lives alone, [facility], and none on the weekend. For DME, she has cane, walker, power W/C. HCP is on file and confirmed: Vee, PCP confirmed: April Dave. Pt will need assistance with transport home at DC, DCP: home with services. CM to follow for DC needs.
[2024-02-21 15:15] LABS: CDiff Gene PCR POSITIVE (Negative)
[2024-02-21 16:17] LABS: CDIFF Internal ctrl Dots and bkg OK (V)
[2024-02-21 16:37] LABS: CDiff Toxin Negative (Negative)
[2024-02-21] MEDS: vancomycin HCL 125 MG CAPSULE PO ×2 (17:15→22:20)
[2024-02-21] MEDS: rOPINIRole HCL 1 MG TABLET PO (17:18)
[2024-02-21 17:24] LABS: Glucose, Whole Blood 83 mg/dL (60-115)
[2024-02-21 21:06] LABS: Glucose, Whole Blood 77 mg/dL (60-115)
[2024-02-21] MEDS: Imipramine HCl 50 MG TABLET PO (22:20)
[2024-02-21] MEDS: Atorvastatin Calcium 40 MG TABLET PO (22:20)
[2024-02-22] VITALS: BP 125/76; PULSE 92; RESP 20; TEMP 36.7; O2SAT 100
[2024-02-22] MEDS: 0.9 % Sodium Chloride Flush 3 ML SYRINGE IVFLUSH (01:20)
[2024-02-22] MEDS: Lactated Ringers 1,000 ML 100 ML IVCONT (01:22)
[2024-02-22 04:00] VITALS: BP 139/60; PULSE 84; RESP 18; TEMP 36.6; O2SAT 100
[2024-02-22] MEDS: vancomycin HCL 125 MG CAPSULE PO ×2 (04:54→10:40)
[2024-02-22] MEDS: Piperacillin Sodium/Tazobactam 3.375 GM in 0.9 % Sodium Chloride 50 ML IV (04:55)
[2024-02-22 06:40] LABS: Hematocrit 24.6 % (37.0-47.0); Hemoglobin 8.4 g/dl (12.0-16.0); Mean Corpuscular HGB Conc 34.1 g/dl (31.0-35.0); Mean Platelet Volume 9.1 fL (9.4-12.3); Platelet Count 147 X10*3/uL (160-400); Red Cell Distribution Width 15.5 % (11.0-16.0); White Blood Count 3.4 X10*3/uL (4.8-10.8)
[2024-02-22] MEDS: Omeprazole 20 MG CAPSULE.DR PO (06:46)
[2024-02-22 06:56] LABS: Anion Gap 12 (12-20); Blood Urea Nitrogen 14 mg/dL (9-16); Calcium 8.3 mg/dL (8.4-10.2); Carbon Dioxide 20 mmol/L (22-29); Chloride 102 mmol/L (96-108); Creatinine Clr Calc Pharmacy 47.7; Estimated Glomerular Filt Rate > 60; Glucose Fasting 70 mg/dL (60-99); Potassium 3.5 mmol/L (3.3-5.1); Sodium 130 mmol/L (135-145)
[2024-02-22 07:06] LABS: Adenovirus F 40/41 Not Detected (Not Detect.); Astrovirus Not Detected (Not Detect.); Campylobacter Not Detected (Not Detect.); Cryptosporidium Not Detected (Not Detect.); Cyclospora cayetanensis Not Detected (Not Detect.); E. coli EAEC Not Detected (Not Detect.); E. coli EPEC Not Detected (Not Detect.); E. coli ETEC Not Detected (Not Detect.); E. coli STEC Not Detected (Not Detect.); Entamoeba histolytica Not Detected (Not Detect.); Giardia lamblia Not Detected (Not Detect.); Norovirus GI/GII Not Detected (Not Detect.); Plesiomonas shigelloides Not Detected (Not Detect.); Rotavirus A Not Detected (Not Detect.); Salmonella Not Detected (Not Detect.); Sapovirus Not Detected (Not Detect.); Shigella sp./EIEC Not Detected (Not Detect.); Vibrio Not Detected (Not Detect.); Vibrio Cholerae Not Detected (Not Detect.); Yersinia enterocolitica Not Detected (Not Detect.)
[2024-02-22 07:40] VITALS: BP 104/61; PULSE 91; RESP 18; TEMP 36.9; O2SAT 95
[2024-02-22 07:47] LABS: Glucose, Whole Blood 81 mg/dL (60-115)
--- NOTE | 2024-02-22 09:21 | P.DS_ITS ---
DS: Providers Provider Date of Service: 02/22/24 Date of admission: 02/21/24 01:54 Date of discharge: 02/22/24 Primary care physician: April Dave NP DS: Diagnosis Discharge Diagnosis (1) Acute hypokalemia: Status: Acute DS: Summary Hospital Course Hospital Course: inti 63-year-old female with pertinent history of insulin-dependent diabetes mellitus, hypertension, gastroesophageal reflux disease, chronic kidney disease, mood disorder, asthma not on home oxygen who presents to the emergency department for evaluation of abdominal pain. Patient states she has chronic abdominal pain but over the last 5-7 days, the intensity and character of pain changed. Initially it was intermittent but the pain progressed to being constant. Also has been having nausea with poor p.o. intake. No vomiting or loose stools. States she has hemorrhoids and has bright red blood when she wipes. No melena or hematochezia. Endorses increased urinary frequency and urgency. No fever, chills, chest pain, palpitations, shortness of breath. In the emergency department, potassium found to be 2. Imaging with diverticulitis and urine concerning for UTI. hospital course: Patient was admitted for acute diverticulitis. Was treated with IV Zosyn and diet advanced to solids which patient tolerated will be transitioned to Ceftin and Flagyl for 5 more days. Stool studies came back positive for C diff PCR but negative toxin unclear significance but will treat empirically with 10 more days of vancomycin p.o.. Initially concern for urinary tract infection, culture was negative though. For diabetes was treated with insulin sliding scale, however due to patient's weight loss likely no longer required. For COPD was continued on inhalers and remained stable. For hypertension patient noted to be relatively hypotensive, also likely due to weight loss and antihypertensives has not been discontinued, this should be monitored. For severe acute hypokalemia received replacement. For CKD 3 she remained stable. For history of nonepileptic seizures with unrelated epileptic spikes on EEG was continued on oxcarbazepine and Topamax. For patient's unintentional weight loss she should continue outpatient follow-up, age-related cancer screening, endocrinology referral for low TSH, normal T3-T4, elevated TSH receptor antibody,? Subclinical hyperthyroid. hgb drop from 11 to basline of 8 likely dilutional and inflammatory, was hemoconcentrated on admission, received ivf. no evidence of acute bleed. Patient is feeling better will be discharged home. Time Attestation Discharge Coordination Time (in mins): 34 Quality: Safe Use of Opioids Does Pt have an Active Cancer Diagnosis on the Problem List?: No Quality: Stroke Does the patient have a stroke diagnosis?: No Physical Exam Vital Signs: Vital Signs: Last Vital Signs Temp 98.5 F 02/22/24 07:40 Pulse 91 02/22/24 07:40 Resp 18 02/22/24 07:40 BP 104/61 02/22/24 07:40 Pulse Ox 95 02/22/24 07:40 O2 Del Method Room Air 02/22/24 07:40 BMI result Body Mass Index 26.1 General: AO X 3, no acute distress Resp: diminished bilateral, no accessory muscles used CVS: S1,S2,RRR GI: soft, non tender, non distended Neuro: motor grossly intact, alert Psych: appropriate affect, appropriate insight DS: Data Data Completed and Pending Completed studies during hospitalization [Text1]: Procedures Drainage of Right Lower Arm Subcutaneous Tissue and Fascia, Open Approach (12/05/23) Transfusion of Nonautologous Red Blood Cells into Peripheral Vein, Percutaneous Approach (12/05/23) Labs on day of discharge: Laboratory Results - last 24 hr 02/21/24 02/21/24 02/21/24 05:25 12:37 14:20 WBC RBC Hgb Hct MCV MCH MCHC RDW Plt Count MPV Absolute Nucleated RBC Nucleated RBC % (auto) Sodium Potassium Chloride Carbon Dioxide Anion Gap BUN Creatinine Estim Creat Clear Calc Estimated GFR POC Glucose 79 Fasting Glucose Calcium TSH 0.01 L Free T4 1.29 Stl C. cayetanensis PCR Not Detected Stool Rotavirus A PCR Not Detected Stl Adenov F 40/41 PCR Not Detected Stool Astrovirus (PCR) Not Detected Stool Campylobacter PCR Not Detected Stool Cryptosporidium PCR Not Detected Stl Sh Tox Pr E STEC PCR Not Detected Stool E coli O157 PCR Not applicable Stl Enterotoxigenic E PCR Not Detected Stool EPEC (PCR) Not Detected Stool EAEC (PCR) Not Detected Stl E. histolytica PCR Not Detected Stool Giardia Lamblia PCR Not Detected Stl P. shigelloides PCR Not Detected Stool Salmonella PCR Not Detected Stool Sapovirus (PCR) Not Detected Stl Shigella/EIEC PCR Not Detected St Y.enterocolitica PCR Not Detected Stool Vibrio (PCR) Not Detected Stl Vibrio cholerae PCR Not Detected Stl Norovirus GI/GII PCR Not Detected C. difficile Tox B Gene POSITIVE A* C. difficile Toxin A&B Negative C. difficile Interpret SEE NOTE 02/21/24 02/21/24 02/22/24 16:45 21:01 05:56 WBC 3.4 L RBC 3.00 L D Hgb 8.4 L D Hct 24.6 L D MCV 82.0 MCH 28.0 MCHC 34.1 RDW 15.5 Plt Count 147 L D MPV 9.1 L Absolute Nucleated RBC 0.000 Nucleated RBC % (auto) 0.0 Sodium 130 L Potassium 3.5 Chloride 102 Carbon Dioxide 20 L Anion Gap 12 BUN 14 Creatinine 0.90 Estim Creat Clear Calc 47.7 Estimated GFR > 60 POC Glucose 83 77 Fasting Glucose 70 Calcium 8.3 L TSH Free T4 Stl C. cayetanensis PCR Stool Rotavirus A PCR Stl Adenov F PCR Stool Astrovirus (PCR) Stool Campylobacter PCR Stool Cryptosporidium PCR Stl Sh Tox Pr E STEC PCR Stool E coli O157 PCR Stl Enterotoxigenic E PCR Stool EPEC (PCR) Stool EAEC (PCR) Stl E. histolytica PCR Stool Giardia Lamblia PCR Stl P. shigelloides PCR Stool Salmonella PCR Stool Sapovirus (PCR) Stl Shigella/EIEC PCR St Y.enterocolitica PCR Stool Vibrio (PCR) Stl Vibrio cholerae PCR Stl Norovirus GI/GII PCR C. difficile Tox B Gene C. difficile Toxin A&B C. difficile Interpret 02/22/24 07:41 WBC RBC Hgb Hct MCV MCH MCHC RDW Plt Count MPV Absolute Nucleated RBC Nucleated RBC % (auto) Sodium Potassium Chloride Carbon Dioxide Anion Gap BUN Creatinine Estim Creat Clear Calc Estimated GFR POC Glucose 81 Fasting Glucose Calcium TSH Free T4 Stl C. cayetanensis PCR Stool Rotavirus A PCR Stl Adenov F PCR Stool Astrovirus (PCR) Stool Campylobacter PCR Stool Cryptosporidium PCR Stl Sh Tox Pr E STEC PCR Stool E coli O157 PCR Stl Enterotoxigenic E PCR Stool EPEC (PCR) Stool EAEC (PCR) Stl E. histolytica PCR Stool Giardia Lamblia PCR Stl P. shigelloides PCR Stool Salmonella PCR Stool Sapovirus (PCR) Stl Shigella/EIEC PCR St Y.enterocolitica PCR Stool Vibrio (PCR) Stl Vibrio cholerae PCR Stl Norovirus GI/GII PCR C. difficile Tox B Gene C. difficile Toxin A&B C. difficile Interpret Discharge Plan Discharge Anticipated Discharge Date/Time: 02/22/24 09:14 Patient Disposition: Home, Self-Care Discharge Diagnosis: cdif pcr positive, toxin negative, diverticulitis, hypokalemia, ?subclinical hyperthyroid, unintentional weight loss Referrals: Jose Voss MD [Physician] - 1 Week (low tsh, normal t3, t4, elevated TRab, unintentional weight loss) April Dave NP [Primary Care Provider] - 1 Week Discharge Medications: New vancomycin 125 mg Capsule 125 mg PO Q6H Qty: 40 0RF cefuroxime axetil 500 mg tablet 500 mg PO BID Qty: 10 0RF metronidazole 500 mg tablet 500 mg PO BID Qty: 10 0RF Continued imipramine HCl 25 mg tablet 50 mg PO BEDTIME Qty: 60 6RF oxcarbazepine 150 mg tablet 1 tab PO BID calcium carbonate-vitamin D3 600 mg(1,500mg) -400 unit tablet 1 tab PO BID atorvastatin 40 mg tablet 1 tab PO BEDTIME cetirizine 10 mg tablet 1 tab PO QAM albuterol sulfate 90 mcg/actuation HFA aerosol inhaler 2 puff PO QID PRN (Reason: Wheezing) folic acid 1 mg tablet 1 mg PO DAILY ropinirole 1 mg tablet 1 mg PO BID PRN (Reason: restless leg syndrome) acetaminophen 500 mg tablet 1,000 mg PO Q6H PRN (Reason: painpain) fluticasone propionate 50 mcg/actuation spray,suspension 2 spray intranasal DAILY omeprazole 20 mg capsule,delayed release(DR/EC) 20 mg PO DAILY@0630 fluticasone propionate 110 mcg/actuation HFA aerosol inhaler 2 puff inhalation BID PRN (Reason: Shortness Of Breath Or Wheezing) sertraline 50 mg tablet 50 mg PO DAILY topiramate 100 mg tablet 100 mg PO BID Discontinued sennosides [Senna Laxative] 8.6 mg tablet 17.2 mg PO BEDTIME Qty: 60 6RF furosemide 40 mg tablet 0.5 tab PO DAILY@0900 Januvia 50 mg tablet 50 mg PO DAILY polyethylene glycol 3350 [Gavilax] 17 gram/dose powder 17 g PO DAILY amlodipine 2.5 mg tablet 2.5 mg PO DAILY olmesartan 40 mg tablet 40 mg PO DAILY Discharge Orders: Discharge Order (Routine); Ordered 02/22/24 Ordered By: Robert Stafford Diet: Advance to usual diet Activity on Discharge: As tolerated Stand Alone Forms: Patient Portal Discharge page Print Language: [place] Care Plan Goals: recovery Health Concerns: cdif pcr positive, toxin negative, diverticulitis, hypokalemia, ?subclinical hyperthyroid, unintentional weight loss Plan of Treatment: 10 days vanco, 5 days ceftin/flagyl, stop bp meds, stop lasix, follow up with endocrinology Assessment: see above
--- NOTE | 2024-02-22 10:26 | MHC.CM.PN ---
Addendum entered by Rosario Stevens RN 02/22/24 10:54: PT WILL TAKE HCM SHUTTLE AT NOON, PT'S RN AWARE. Original Note: PT MEDICALLY CLEARED FOR DC HOME W/RESUMP OF PLANT MANAGER HRS MF, [facility] TRANSPORT TO BE ARRANGED
[2024-02-22] MEDS: Sertraline HCL 50 MG TABLET PO (10:40)
[2024-02-22] MEDS: Folic Acid 1 MG TABLET PO (10:40)
[2024-02-22] MEDS: OXcarbazepine 150 MG TABLET PO (10:40)
[2024-02-22] MEDS: Sodium Bicarbonate 650 MG TABLET PO (10:40)
[2024-02-22] MEDS: Topiramate 100 MG TABLET PO (10:40)
[2024-02-22 10:58] LABS: Glucose, Whole Blood 89 mg/dL (60-115)
== END 2024-02-22 11:15 | disposition home or self-care (01) | DRG 392 ==
LOC: HO.ED 22:11 → HO.EDOVER 02-21 02:04 → HO.IMC 02-21 07:45
PROVIDERS: Admitting Provider Student in an Organized Health Care Education/Training Program; Emergency Provider Internal Medicine; PCP Nurse Practitioner Primary Care; Visit Provider Internal Medicine
DX: K57.32 Diverticulitis of large intestine without perforation or abscess without bleeding (principal); E87.1 Hypo-osmolality and hyponatremia; N39.0 Urinary tract infection, site not specified; A04.72 Enterocolitis due to Clostridium difficile, not specified as recurrent; N18.30 Chronic kidney disease, stage 3 unspecified; I95.9 Hypotension, unspecified; J44.9 Chronic obstructive pulmonary disease, unspecified; F39 Unspecified mood [affective] disorder; E05.90 Thyrotoxicosis, unspecified without thyrotoxic crisis or storm; I12.9 Hypertensive chronic kidney disease with stage 1 through stage 4 chronic kidney disease, or unspecified chronic kidney disease; K21.9 Gastro-esophageal reflux disease without esophagitis; J45.909 Unspecified asthma, uncomplicated; E87.6 Hypokalemia; E11.22 Type 2 diabetes mellitus with diabetic chronic kidney disease; Z79.51 Long term (current) use of inhaled steroids; Z79.899 Other long term (current) drug therapy
CPT/HCPCS: 36415; 74177; 80048; 80053; 80076; 81001; 82947; 83690; 83735; 83935; 84132; 84300; 84439; 84443; 84484; 85025; 85027; 85610; 87086; 87324; 87493; 87507; 93005; 99285; J1650; J2270; J2405; J2543; J3480; J7120; Q9967

== ENCOUNTER → 2024-02-20 20:46 | Outpatient (BNV) | payer OTHER, SELFPAY | PROVIDERS: Admitting Provider Student in an Organized Health Care Education/Training Program; Emergency Provider Internal Medicine; PCP Nurse Practitioner Primary Care; Visit Provider Internal Medicine Cardiovascular Disease | DX: I44.0 Atrioventricular block, first degree (principal) | CPT/HCPCS: 93010 ==

== ENCOUNTER → 2024-02-21 01:54 | Outpatient (BNV) | payer OTHER, SELFPAY | PROVIDERS: Admitting Provider Student in an Organized Health Care Education/Training Program; Emergency Provider Internal Medicine; PCP Nurse Practitioner Primary Care; Visit Provider Student in an Organized Health Care Education/Training Program | DX: E87.6 Hypokalemia (principal) | CPT/HCPCS: 99223; 99239; 99499 ==

== ENCOUNTER 2024-03-14 13:51 | Outpatient (REF) | payer OTHER, SELFPAY ==
[2024-03-14 16:32] LABS: Hematocrit 26.5 % (37.0-47.0); Hemoglobin 8.6 g/dl (12.0-16.0)
[2024-03-14 18:18] LABS: Anion Gap 11 (12-20); Blood Urea Nitrogen 8 mg/dL (9-16); Calcium 8.3 mg/dL (8.4-10.2); Carbon Dioxide 23 mmol/L (22-29); Chloride 105 mmol/L (96-108); Estimated Glomerular Filt Rate > 60; Glucose Random 102 mg/dL (60-115); Potassium 2.7 mmol/L (3.3-5.1); Sodium 136 mmol/L (135-145)
== END 2024-03-14 13:52 | disposition home or self-care (01) ==
LOC: HO.HHCL 13:51
PROVIDERS: Visit Provider Nurse Practitioner Primary Care
DX: E87.6 Hypokalemia (principal); D50.9 Iron deficiency anemia, unspecified
CPT/HCPCS: 36415; 80048; 85014; 85018

== ENCOUNTER 2024-03-15 09:51 | Emergency (ER) | payer OTHER, SELFPAY ==
[2024-03-15 11:02] VITALS: BP 145/55; PULSE 90; RESP 16; TEMP 2.3; TEMP 36.1; O2SAT 98; BMI 26.7
--- NOTE | 2024-03-15 11:05 | ED.GENADULT ---
HPI - General Adult General Stated complaint: need iv drip for potassium sent in by pcp Related Data Home Medications ?Medication ?Instructions ?Recorded ?Confirmed atorvastatin 40 mg tablet 1 tab PO BEDTIME 01/12/20 02/21/24 calcium 600 mg (as 1 tab PO BID 01/12/20 02/21/24 carbonate)-vitamin D3 10 mcg (400 unit) tablet cetirizine 10 mg tablet 1 tab PO QAM 01/12/20 02/21/24 oxcarbazepine 150 mg tablet 1 tab PO BID 01/12/20 02/21/24 sertraline 50 mg tablet 50 mg PO DAILY 08/20/20 02/21/24 albuterol sulfate 90 mcg/actuation 2 puff PO QID PRN Wheezing 02/18/21 02/21/24 aerosol inhaler topiramate 100 mg tablet 100 mg PO BID 09/19/21 02/21/24 folic acid 1 mg tablet 1 mg PO DAILY 12/05/23 02/21/24 acetaminophen 500 mg tablet 1,000 mg PO Q6H PRN painpain 02/21/24 02/21/24 fluticasone propionate 110 2 puff inhalation BID PRN 02/21/24 02/21/24 mcg/actuation HFA aerosol inhaler Shortness Of Breath Or Wheezing fluticasone propionate 50 2 spray intranasal DAILY 02/21/24 02/21/24 mcg/actuation nasal spray,suspension omeprazole 20 mg capsule,delayed 20 mg PO DAILY@0630 02/21/24 02/21/24 release ropinirole 1 mg tablet 1 mg PO BID PRN restless leg 02/21/24 02/21/24 syndrome Previous Rx's ?Medication ?Instructions ?Recorded imipramine HCl 25 mg tablet 50 mg (2 x 25 mg) PO BEDTIME #60 01/15/24 tabs cefuroxime axetil 500 mg tablet 500 mg PO BID #10 tabs 02/22/24 metronidazole 500 mg tablet 500 mg PO BID #10 tabs 02/22/24 vancomycin 125 mg capsule 125 mg PO Q6H #40 caps 02/22/24 Allergies Allergy/AdvReac Type Severity Reaction Status Date / Time hydrocodone [From Vicodin] Allergy Mild ITCHING Verified 03/15/24 11:05 SHANAE Inhibitors Allergy Unknown UNKNOWN Verified 03/15/24 11:05 [SHANAE INHIBITORS] ENVIROMENTAL Allergy Mild HAYFEVER Uncoded 03/15/24 11:05 lysol wipes Allergy Mild Hives Uncoded 03/15/24 11:05 [place] Allergy Unknown NEPHROPATHY Uncoded 03/15/24 11:05 [facility] Past Medical History Medical History Seizures Syncope History of TIA (transient ischemic attack) CHF (congestive heart failure) Essential hypertension Hyperlipidemia Type 2 diabetes mellitus with chronic kidney disease Chronic kidney disease, stage 3 Anemia COPD (chronic obstructive pulmonary disease) Asthma JANET (obstructive sleep apnea) Nicotine dependence, cigarettes, uncomplicated Restless leg syndrome Obesity Tubular adenoma of colon IBS (irritable bowel syndrome) Constipation Primary osteoarthritis of right knee Osteoarthritis Right knee pain History of migraine Surgical History History of appendectomy History of cholecystectomy History of esophagogastroduodenoscopy (EGD) History of colonoscopy History of total left knee replacement (TKR) History of arthroscopy of left knee History of arthroscopy of right knee History of elbow surgery History of surgery on wrist History of carpal tunnel release of both wrists History of lumpectomy of right breast Family History Family History Father Hx of gout Diabetes Mother Diabetes Daughter Pre-diabetes Brother Cancer Social History Social History Household Members: None Housing: Apartment Do you presently have visiting nurse or other home services: Yes Alcohol intake: never Patient Tobacco Use Status: Current everyday Tobacco user Tobacco use type: Cigarette Cigarette Packs Per Day: 1 Cigarettes Per Day: 20.0 Years Smoked: onset 16yo, 3ppd x 47yrs, now 2ppd, >100pyh e-Cigarette/Vaping Use: Never Used Second Hand Smoke Exposure: No Advance Directives Date on File: 02/18/21 service: No Current occupational status: disabled Current occupation: left hand dominant Course Course Course Narrative: RME, this is a rapid medical exam performed by Yohan Cui please refer to primary provider for complete H&P- 63 year old female presents for evaluation of a potassium of 2.7 drawn yesterday. She is on Lasix 20 mg daily. She has no complaints. Plan for repeat labs Discharge Plan Discharge Prescriptions: No Action imipramine HCl 25 mg tablet 50 mg PO BEDTIME Qty: 60 6RF oxcarbazepine 150 mg tablet 1 tab PO BID calcium carbonate-vitamin D3 600 mg(1,500mg) -400 unit tablet 1 tab PO BID atorvastatin 40 mg tablet 1 tab PO BEDTIME cetirizine 10 mg tablet 1 tab PO QAM albuterol sulfate 90 mcg/actuation HFA aerosol inhaler 2 puff PO QID PRN (Reason: Wheezing) folic acid 1 mg tablet 1 mg PO DAILY ropinirole 1 mg tablet 1 mg PO BID PRN (Reason: restless leg syndrome) acetaminophen 500 mg tablet 1,000 mg PO Q6H PRN (Reason: painpain) fluticasone propionate 50 mcg/actuation spray,suspension 2 spray intranasal DAILY omeprazole 20 mg capsule,delayed release(DR/EC) 20 mg PO DAILY@0630 fluticasone propionate 110 mcg/actuation HFA aerosol inhaler 2 puff inhalation BID PRN (Reason: Shortness Of Breath Or Wheezing) vancomycin 125 mg Capsule 125 mg PO Q6H Qty: 40 0RF cefuroxime axetil 500 mg tablet 500 mg PO BID Qty: 10 0RF metronidazole 500 mg tablet 500 mg PO BID Qty: 10 0RF sertraline 50 mg tablet 50 mg PO DAILY topiramate 100 mg tablet 100 mg PO BID Print Language: Romansh
--- NOTE | 2024-03-15 11:09 | ECG_ITS ---
Test Reason : HYPOKALEMIA Blood Pressure : / mmHG Vent. Rate : 085 BPM Atrial Rate : 085 BPM P-R Int : 136 ms QRS Dur : 090 ms QT Int : 390 ms P-R-T Axes : 060 026 025 degrees QTc Int : 464 ms Sinus rhythm with Premature atrial complexes Cannot rule out Anterior infarct (cited on or before 20-FEB-2024) Abnormal ECG When compared with ECG of 20-FEB-2024 20:49, [place] interval has decreased Questionable change in initial forces of Anterior leads T wave inversion no longer evident in Inferior leads Nonspecific T wave abnormality no longer evident in Anterolateral leads Referred By: Олег Cui Electronically Signed By:
[2024-03-15 11:40] LABS: MANUAL DIFF FLAG NO
[2024-03-15 11:44] LABS: Basophils Percent Auto 0.5 % (0-2); Hematocrit 26.6 % (37.0-47.0); Hemoglobin 8.6 g/dl (12.0-16.0); Imm Gran Abs Auto 0.02 X10*3/uL (0.00-0.03); Imm Gran Pct Auto 0.5 % (0.0-0.4); Lymphocytes Absolute Auto 1.6 X10*3/uL (1.2-4.9); Lymphocytes Percent Auto 40.5 % (20-40); Mean Corpuscular HGB Conc 32.3 g/dl (31.0-35.0); Mean Corpuscular Hemoglobin 27.2 pg (27.0-33.0); Mean Corpuscular Volume 84.2 fL (80.0-98.0); Mean Platelet Volume 9.5 fL (9.4-12.3); Monocytes Absolute Auto 0.3 X10*3/uL (0.1-1.2); Neutrophils Percent Auto 50.5 % (45-73); Platelet Count 193 X10*3/uL (160-400); Red Blood Count 3.16 X10*6/uL (4.20-5.50); Red Cell Distribution Width 15.9 % (11.0-16.0); White Blood Count 3.9 X10*3/uL (4.8-10.8)
[2024-03-15 11:58] LABS: Alanine Aminotransferase < 6 U/L (0-31); Albumin Level 3.1 g/dL (3.5-5.0); Alkaline Phosphatase 93 U/L (39-117); Anion Gap 11 (12-20); Aspartate Amino Transferase 20 U/L (5-31); Bilirubin Total 0.2 mg/dL (0.0-1.0); Blood Urea Nitrogen 6 mg/dL (9-16); Calcium 8.9 mg/dL (8.4-10.2); Carbon Dioxide 23 mmol/L (22-29); Chloride 107 mmol/L (96-108); Creatinine Clr Calc Pharmacy 58.7; Estimated Glomerular Filt Rate > 60; Glucose Random 88 mg/dL (60-115); Lipase 27 U/L (8-78); Magnesium 1.6 mg/dL (1.6-2.6); Sodium 138 mmol/L (135-145); Total Protein 6.7 g/dL (6.5-8.0)
== END 2024-03-15 17:41 | disposition left against medical advice (07) ==
PROVIDERS: Physician Assistant; Emergency Provider Emergency Medicine Emergency Medical Services; PCP Nurse Practitioner Primary Care
DX: E87.6 Hypokalemia (principal); F17.210 Nicotine dependence, cigarettes, uncomplicated; R94.31 Abnormal electrocardiogram [ECG] [EKG]; Z79.899 Other long term (current) drug therapy
CPT/HCPCS: 36415; 80053; 83690; 83735; 85025; 93005; 99281

== ENCOUNTER 2024-04-22 15:24 | Outpatient (REF) | payer OTHER, SELFPAY ==
--- NOTE | ~2024-04-22 | XR_ITS ---
EXAMINATION: XR THORACIC SPINE 2 VIEWS HISTORY: PAIN COMPARISON: There are no prior studies for comparison. FINDINGS: AP and lateral views of the thoracic spine are submitted. Osseous mineralization is normal. The vertebral bodies maintain normal height and alignment without evidence of fracture or subluxation. There is diffuse moderate degenerative disc disease with disc space narrowing and osteophyte formation. The visualized paraspinal soft tissues are unremarkable. XR/XR thoracic spine 2V IMPRESSION: Diffuse degenerative disc disease as described. Electronically signed by: Jose Grissom MD 04/22/2024 03:48 PM LORENZA
--- OUTSIDE RECORDS SUMMARY | 2024-04-22 16:26 | XMS_ITS | Encounter Summary ---
Author Organization [employer] Address [address] [place] [id number] Care Team Providers Care Restaurant Area Manager Name Role Phone April Dave Primary Care Provider [phone] Reason for Visit * Reason Onset Date Comments Triage 08/22/2022 Encounter Details Date Type Department Care Team ([facility] st Contact Info) Description 08/22/2022 Telephone [facility] MEDICINE [address] [place] [address] April Dave ANP [address] [place] [address] Triage Social History Tobacco Use Types Packs/Day Years Used Date Smoking Tobacco: Every Day Cigarettes Smokeless Tobacco: Never Alcohol Use Standard Drinks/Week Comments Never 0 (1 standard drink = 0.6 oz pur e alcohol) Comments Unknown Sex and Gender Information Value Date Recorded Sex Assigned at Female 01/27/2022 10:19 AM EDT Legal Sex Female 10:19 AM EDT Gender Identity Female 01/27/2022 10:19 AM EDT Sexual Orientation Choose not to disclose 2021 10:19 AM EDT documented as of this encounter Miscellaneous Notes * Telephone Encounter - Oscar Sanders - 08/22/2022 3:49 PM EDT Symptom: Vaginal Symptoms - Not Bleeding Outcome: Talk to a nurse or provider within 15 minutes Reason: Severe pelvic pain now The caller accepted this outcome Please contact pt at [phone] documented in this encounter Plan of Treatment Not on file documented as of this encounter Visit Diagnoses Not on filedocumented in this encounter Care Teams Restaurant Area Manager Relationship Specialty Start Date End Date April Dave ANP [address] [place] [address] PCP - General Family Medicine 11/16/20 documented as of this encounter
--- OUTSIDE RECORDS SUMMARY | 2024-04-22 16:26 | XMS_ITS | Data Portability ---
Author Organization [employer] [place] [employer] Address [address] [place] [address] Care Team Providers Care Steward/Stewardess Room Name Role Phone [facility] Referring Provider HIM [facility] OTHER Assessment Encounter Date Assessment Date Assessment LastModified by Organization Details LastModified Time 12/13/2021 12/13/2021 service called for eval white discharge from umblicius found 61 lyn in usual state of health 3d prior noted redness, swelling at umbilicus, pus discharge resolved at time of visit, no tenderness, no readness VS stable most likely self-resolved celluitis no additional treatments at this time notify servie if worsening [email or web address] Not available 12/13/2021 23:47:47 02/23/2023 02/23/2023 As noted, we were called to see this patient regarding concerns of Evaluation in the field was performed by my lane marker installer colleague, as noted above, I provided real-time direction and supervision for this visit. The evaluation revealed 62y F with COPD, diabetes, HTN with about 1 mo productive cough, feeling worse in last week with low grade temp today. No PCP f/u appt scheduled. Impression: CAP Plan: azithromycin, f/u w PCP Primary care, consider outreach to confirm improvemnt nad schedule for f/u in next 5-7d Disposition: We discussed the diagnostic uncertainty of home visits and the risk associated with this. In this case, the patient and I felt this to be an acceptable and reasonable amount of risk given the benefit of avoiding an ED visit. We discussed the need to seek care urgently/emergen tly in the setting of any new or worsening serious symptoms, particularly worsening fever, weakness, chills, lightheadedness, ifficulty taking PO, sob atilhou Not available 02/23/2023 20:29:19 10/24/2023 10/24/2023 I have reviewed and agree with the assessment and plan as documented by the lane marker installer. I provided real-time medical direction for this encounter and was immediately available to provide additional phone-based assistance as needed. Pt seen today for diffuse cat bite that occured this morning. Multiple bites noted to throughout right upper extremity, some bleeding. Puncture and deep lacerations noted to dorsal aspect of right hand. Concern for 1) deep traumatic injury requiring further exploration, irrigation and repair and 2) infectious possibility. Discussed with patient importance for having wound looked at to determine depth of injury and need for repair. Pt agreeable and walked over to ED next door. Skin cleaned and wrapped with dry dressing bandage. paysola Not available 10/24/2023 13:06:56 01/30/2024 01/30/2024 As noted, we were called to see this patient regarding concerns of abdominal pain. Evaluation in the field was performed by my lane marker installer colleague, as noted above, I provided real-time direction and supervision for this visit. The evaluation revealed 63y F with constipatoin now with difficulty voiding - pressure, having to push to urinate, minimal UOP today. Exam concerning w grimmacing w suprapubic palpation. She cannot void right now. Patient encouraged to present to ER tonight but she declined. Risks of bladder distention including injury to kidneys and bladder explained. She prefers to stay home tonight and go first thing in am. She reports she has voided today, just not much. Medic performed extensive precautions and counseling abou timportance of ER. Impression: abdominal pain Plan: refer to ER; she will go in am Primary care, consider ER follw up Disposition: We discussed the diagnostic uncertainty of home visits and the risk associated with this. In this case, the patient and I felt this to be an acceptable and reasonable amount of risk given the benefit of avoiding an ED visit. We discussed the need to seek care urgently/emergen tly in the setting of any new or worsening serious symptoms, particularly chest pain, worsening abdominal pain, hematuria, vomiting, worsening abilty to void, fever atilhou Not available 01/30/2024 19:18:46 03/07/2024 03/07/2024 I provided real -time medical direction via phone for this encounter, and was available for additional phone based assistance as needed. I have reviewed and agree with the Assessment and Plan as documented by the Supervisor Type Photography. We discussed the diagnostic uncertainty of home visits and the risk associated with this. In this case the patient and I felt this to be an acceptable and reasonable amount of risk given the benefit of avoiding an ED visit. The patient given the opportunity to ask questions. Advised if develops CP/severe SOB/turning blue/uncontrolle d n/v/d or black/bloody emesis or stool/ AMS/ syncope/intolera ble leg pain/ hi fever unresponsive to APAP to call 911- verbalized understanding of instruction [email or web address] Not available 03/08/2024 00:03:32 Plan of Treatment Reminders Order Date Submit Date Provider Last Modified By Organization Details Last Modified Time Details Appointments None recorded. Lab BMP, serum or plasma 2023 024 [email or web address], [address], 4 15:47:26 Referral None recorded. Procedures None recorded. Surgeries None recorded. Imaging None recorded. Medication Orders azithromyci n 250 mg tablet 2022 023 [facility], [address] [place] [address], [id number], 3 12:11:17 furosemide 10 mg/mL injection solution 2023 024 [email or web address] 0 [facility], [address] [place] [address], [id number], 4 15:47:26 potassium chloride ER 20 mEq tablet,exte nded release 2023 024 [email or web address] 0 [facility], [address] [place] [address], [id number], 4 15:47:26 Patient TargetsNo targets recorded. Patient InstructionsNo instructions recorded. Reason for Referral None Reported. Results Created Date Observation Date Name Description Value Unit Range Abnormal Flag Note LastModifiedBy Organization Detail LastModifiedTime Result Notes None recorded. Medical Equipment None Reported. Allergies Allergen ID Allergen Name Allergen Category Reaction Reaction Severity Criticality Documentation Date Start Date Code Code System Note Provider Name and Address Organization Details Recorded Time acetamino phen / hydrocodo ne medicatio n Not available Not available Not available 01/30/2024 21609 2 [facility] 4 17:29:12 74082 hydrocodo ne Not available Not available Not available Not available 03/07/2024 5489 RxNorm Not Available [facility] 4 12:41:10 23978 tramadol medicatio n Not available Not available Not available 03/07/2024 07211 [facility] 4 12:41:10 06378 lisinopri l medicatio n Not available Not available Not available 03/07/2024 75866 [facility] 4 12:41:10 7573 albuterol medicatio n Not available Not available Not available 01/26/2024 435 [facility] 4 03:38:23 Medications Name Sig Start Date Stop Date Status Note LastModified by Organization Details LastModified Time medbox status USE DIRECTED active Not Available Not Available No t Available pulse oximet airial [id number] USE TWICE DAILY DIRECTED active Not Available Not Available No t Available furosemide 40 mg tablet TAKE 1 AND 1/2 TABLETS BY MOUTH IN THE MORNING active Not Available Not Available Not Available furosemide 10 mg/mL injection solution Inject 40 mg. 2023 active Not Available Not Available Not Avai lable atorvastatin 40 mg tablet TAKE 1 TABLET BY MOUTH AT BEDTIME active Not Available Not Available No t Available oxcarbazepin e 150 mg tablet TAKE 1 TABLET BY MOUTH TWICE DAILY IN THE MORNING AND AT BEDTIME active Not Available Not Available No t Available ketoconazole 2 % shampoo APPLY TOPICALLY 3 TIMES A WEEK DIRECTED active Not Available Not Available No t Available cetirizine 10 mg tablet TAKE 1 TABLET BY MOUTH EVERY MORNING active Not Available Not Available No t Available azithromycin 250 mg tablet TAKE 2 TABLETS BY MOUTH ON DAY 1, THEN TAKE 1 TABLET DAILY ON DAYS 2-5 active Not Available Not Available No t Available prednisone 20 mg tablet TAKE 2 TABLETS BY MOUTH ONCE DAILY IN THE MORNING FOR 5 DAYS active Not Available Not Available N ot Available amlodipine 2.5 mg tablet TAKE 1 TABLET BY MOUTH EVERY EVENING active Not Available Not Available No t Available aspirin 81 mg tablet,delay ed release TAKE 1 TABLET BY MOUTH AT BEDTIME active Not Available Not Available No t Available lidocaine 5 % topical patch APPLY 1 PATCH TOPICALLY TO SKIN, LEAVE ON FOR 12 HOURS AND OFF FOR 12 HOURS DIRECTED DIRECTED active Not Available Not Available No t Available omeprazole 20 mg capsule,princess yed release TAKE 1 CAPSULE BY MOUTH EVERY MORNING active Not Available Not Available No t Available codeine 10 mg-guaifenes in 100 mg/5 mL oral liquid TAKE 5 ML BY MOUTH EVERY 6 HOURS NEEDED FOR FOR COUGH FOR UP TO 5 DAYS active Not Available Not Available No t Available topiramate 100 mg tablet TAKE 1 TABLET BY MOUTH TWICE DAILY IN THE MORNING AND AT BEDTIME active Not Available Not Available No t Available fluticasone propionate 50 mcg/actuatio n nasal spray,suspen trace USE 2 SPRAYS IN EACH NOSTRIL ONCE DAILY active Not Available Not Available N ot Available sertraline 50 mg tablet TAKE 1 TABLET BY MOUTH EVERY MORNING active Not Available Not Available No t Available imipramine 25 mg tablet TAKE 2 TABLETS BY MOUTH EVERY DAY AT BEDTIME active Not Available Not Available No t Available olmesartan 40 mg tablet TAKE 1 TABLET BY MOUTH EVERY MORNING active Not Available Not Available No t Available Novolog FlexPen U-100 Insulin aspart 100 unit/mL (3 mL) subcutaneous INJECT 6 UNITS SUBCUTANEOU SLY THREE TIMES DAILY WITH BREAKFAST, LUNCH, AND SUPPER active Not Available Not Available No t Available Alcohol Prep Pads USE FOUR TIMES DAILY NEEDED active Not Available Not Available No t Available Flovent HFA 110 mcg/actuatio n aerosol inhaler INHALE 2 PUFFS TWICE DAILY. RINSE MOUTH AFTER USING. active Not Available Not Available No t Available UltiCare Pen Needle 31 gauge x 1/4 USE DIRECTED FOUR TIMES DAILY active Not Available Not Available No t Available Januvia 100 mg tablet TAKE 1 TABLET BY MOUTH EVERY MORNING active Not Available Not Available No t Available calcium 600 mg (as carbonate)-v itamin D3 10 mcg (400 unit) tablet TAKE 1 TABLET BY MOUTH TWICE DAILY IN THE MORNING AND IN THE EVENING active Not Available Not Available No t Available Glutose-15 40 % oral gel TAKE 1 TUBE BY MOUTH NEEDED HYPOGLYCEMI A (BG < 70mg/dL) active Not Available Not Available No t Available FreeStyle Lite Strips TEST BLOOD SUGAR THREE TIMES DAILY active Not Available Not Available Not Available FeroSul 325 mg (65 mg iron) tablet TAKE 1 TABLET BY MOUTH EVERY MORNING WITH VITAMIN C active Not Available Not Available No t Available Lant Solostar U-100 Insulin 100 unit/mL (3 mL) subcutaneous pen INJECT 16 UNITS SUBCUTANEOU SLY ONCE DAILY IN THE EVENING. MAY ADJUST DOSE DIRECTED active Not Available Not Available No t Available FreeStyle Cicero Lite kit USE DIRECTED active Not Available Not Available No t Available diclofenac 1 % topical gel APPLY 2 GRAMS TOPICALLY AFFECTED AREA(S) TWICE DAILY active Not Available Not Available Not Available blood pressure test kit-large cuff USE DIRECTED EVERY MORNING active Not Available Not Available No t Available Vitamin D3 50 mcg (2,000 unit) capsule TAKE 1 CAPSULE BY MOUTH EVERY MORNING active Not Available Not Available No t Available Combivent Respimat 20 mcg-100 mcg/actuatio n solution for inhalation INHALE 1 PUFF EVERY 4 TO 6 HOURS NEEDED FOR WHEEZING active Not Available Not Available No t Available TRUEplus Lancets 33 gauge TEST BLOOD SUGAR 3 TIMES A DAY active Not Available Not Available Not Available potassium chloride ER 20 mEq tablet,exten ded release Take 2 tablets by oral route. 2023 active Not Available Not Available Not Avai lable Proctosol HC 2.5 % topical cream perineal applicator APPLY RECTALLY TWICE DAILY FOR HEMORRHOIDS active Not Available Not Available Not Available Vitals Date Recorded Body weight Respiratory rate Heart rate Oxygen saturation Oxygen saturation in Arterial blood by Pulse oximetry Body height Body temperature Systolic blood pressure Diastolic blood pressure Provider Name and Address Organization Details Last Updated DateTime 3 01348.5 36 g 18 /min 98 /min 97 % 97 % 147.32 cm 100.6 [degF] 141 mm[Hg] 53 mm[Hg] Not Available [employer] 3 20:20:15 Date Recorded Body temperature Oxygen saturation Oxygen saturation in Arterial blood by Pulse oximetry Respiratory rate Heart rate Systolic blood pressure Diastolic blood pressure Provider Name and Address Organization Details Last Updated DateTime 4 96.3 [degF] 98 % 98 % 18 /min 90 /min 123 mm[Hg] 98 mm[Hg] Not Available [employer] 4 12:44:04 Date Recorded Respiratory rate Heart rate Body height Oxygen saturation Oxygen saturation in Arterial blood by Pulse oximetry Body weight Body temperature Systolic blood pressure Diastolic blood pressure Provider Name and Address Organization Details Last Updated DateTime 4 20 /min 97 /min 147.32 cm 99 % 99 % 95128.6 96 g 98.1 [degF] 116 mm[Hg] 77 mm[Hg] Not Available [employer] 4 19:02:23 Date Recorded Heart rate Body temperature Oxygen saturation Oxygen saturation in Arterial blood by Pulse oximetry Respiratory rate Systolic blood pressure Diastolic blood pressure Provider Name and Address Organization Details Last Updated DateTime 4 96 /min 96.9 [degF] 98 % 98 % 18 /min 151 mm[Hg] 86 mm[Hg] Not Available [employer] 4 15:08:50 Date Recorded Body height Body mass index (BMI) Body weight Provider Name and Address Organization Details Last Updated DateTime 03/07/2024 147.32 cm 26.8 kg/m2 10485.82 g Rosario Maguire MD [address] [place] [address],[address] [facility], [place], [address], [place] - [employer] 03/07/2024 15:26:21 Date Recorded Oxygen saturation Oxygen saturation in Arterial blood by Pulse oximetry Body temperature Respiratory rate Heart rate Systolic blood pressure Diastolic blood pressure Provider Name and Address Organization Details Last Updated DateTime 2 96 % 96 % 98.7 [degF] 18 /min 93 /min 119 mm[Hg] 87 mm[Hg] Not Available [employer] 2 20:36:23 Social History None recorded. Functional Status None recorded. Mental Status None recorded. Family History Nothing Reported. Medical History No medical history recorded. Gynecological HistoryNo gynecological history recorded. Obstetrics History GPAL:G 0 P 0 0 0 0 Past Encounters Encounter ID Performer Location Encounter Start Date Encounter Closed Date Diagnosis/Indication Diagnosis SNOMED-CT Code Diagnosis ICD10 Code Diagnosis Note [id number] Reed Carlos MD [facility] [address] [place] [id number] 12/13/2021 20:36:20 12/20/2021 13:30:15 Cellulitis [id number] L03.90 [id number] Yelena Landaverde MD [facility] [address] [place] [address] [id number] 02/23/2023 20:14:26 02/23/2023 23:04:54 Community acquired pneumonia 363148624 J18.9 Acute exac erbation of chronic obstructive pulmonary disease [id number] J44.1 [id number] Winsome Díaz MD [facility] [address] [place] [address] [id number] 10/24/2023 12:43:55 10/24/2023 13:07:28 Cat bite [id number] W55.01XA [id number] Yelena Landaverde MD [facility] [address] [place] [address] [id number] 01/30/2024 19:02:19 02/01/2024 00:29:21 Abdominal pain 82664197 R10.9 Suprapubic pain 26155767 6 R10.30 [id number] Rosario Maguire MD [facility] [address] [place] [address] [id number] 03/07/2024 15:08:39 03/08/2024 17:25:37 Peripheral edema 602609450 R60.9 No clinical evidence of CHFBoth legs more edematous than usual, right foot is more swollen than left/no history of trauma but no cords /Homans negative so DVT is unlikely. No warmth or erythema to suggest cellulitis . Primary care team: If patient continues to have pain/sts she will need imaging studies. Patient is quite anemic- her [facility] notes from 02/20 through 02/22/2024 state her hemoglobin went from 11-8 which was likely inflammato ry and dilutional . Her H&H is 9.5 and 28 today which is improved from that, but may also have some dilutional effect. Patient's sodium borderline (135 likely due to fluid overload and k nl )- She has already had 60 of p.o. Lasix today will give an additional 40 mg IV and increase her Lasix to 80 mg tomorrow and 03/09/2024 . KCl 40 mEq given to prevent K from dropping below its current 3.7. Advised patient she should have repeat evaluation and lab work in 48 hours. Advised her to call PCP tomorrow. Follow-up sent to care team through [facility] if they are unable to see her [facility] can do a repeat visit in 48 hours. Advised to continue low-salt diet and elevate feet. Regarding pain-given significan t anemia and a history of CKD ketorolac is contraindi cated. She is currently taking Tylenol 1 g twice a day which she can continue/ advised she may take an additional 500 mg in the middle of the day for the next 3 days but not exceed 2500 mg/day and then return to 2000 mg per 24 hours Health Concerns Section Related Observation LastModified by Organization Detai ls LastModified Time None Recorded Concern Status LastModified by Organization Details LastModified Time None Recorded Advance Directives Directive None Recorded Payers Encounter Date Sequence Insurance Name Policy Number Policy Sepulveda Covered Member ID Sepulveda Member ID Guarantor Name 12/13/2021 1 [facility] DOS PRIOR TO 2022 - DUAL ELIGIBLE (MEDICARE REPLACEMENT/AD VANTAGE - HMO) Vikki Willis [id number] Vikki Willis 02/23/2023 1 [employer] [facility] [employer] - DOS ON OR AFTER 2022 - DUAL ELIGIBLE - SNF OPTIONS AND ONE CARE (MEDICARE REPLACEMENT/AD VANTAGE - HMO) Vikki Willis [id number] Vikki Willis 10/24/2023 1 [facility] [employer] - DOS ON OR AFTER 2022 - DUAL ELIGIBLE - SNF OPTIONS AND ONE CARE (MEDICARE REPLACEMENT/AD VANTAGE - HMO) Vikki Willis [id number] Vikki Willis 01/30/2024 1 [facility] [employer] - DOS ON OR AFTER 2022 - DUAL ELIGIBLE - SNF OPTIONS AND ONE CARE (MEDICARE REPLACEMENT/AD VANTAGE - HMO) Vikki Willis [id number] Vikki Willis 03/07/2024 1 [facility] [employer] - DOS ON OR AFTER 2022 - DUAL ELIGIBLE - SNF OPTIONS AND ONE CARE (MEDICARE REPLACEMENT/AD VANTAGE - HMO) Vikki Willis [id number] iVkki Willis Notes Date Note Type Note Provider Name and Address Organization Details Recorded Time 12/13/2021 text/html HPI: ALLERGIES; SHANAE INHIBITORS, HYDROCODONE BITARTRATE Seizure disorder,DM, GeRD depression. Patient with four days of white liquid discharge from umbilicus. .................... .................... .................... .................... .................... .................... .................... . [facility] Nursing Assessment: Comments: spoke with zhanna nurse , member is safe and stable to wait till 12/14> denies fever/ chills Attempted to reach member , no contact .................... .................... .................... .................... .................... .................... .................... . Supervisor Type Photography Note: Dispatched for patient with chief complaint of umbilicus discharge. Upon arrival patient presents on wheelchair with normal respirations and alert x 4. Patient states having umbilicus pain and white discharge 3 days ago. Patient states no current pain. Umbilicus appears dry with no signs of erythema, swelling, or infection. [facility] contacted. Patient education given, red flags discussed. .................... .................... .................... .................... .................... .................... .................... . Disposition: Fulfilled Reed Carlos MD [address] [facility],[address], [place], [address], [employer] 12/13/2021 23:49:19 02/23/2023 text/html HPI: HX: JANET, Seizure disorder. Triage call returned to patient who reports that she has been with a cough for over a month. Has been taking RX cough syrup but name unknown as patient is not at home at present. No shortness of breath. Phlegm is white. No fever. .................... .................... .................... .................... .................... .................... .................... . [facility] Nursing Assessment: Comments: [facility] RN DID NOT NEED FURTHER INFO [facility] HPI: runny nose, clear mucous, x 1 mo. seen by PCP, given cough medicine with codeine. last appt w PCP was 1 wk ago. still having productive cough. started corcidin last week 5d ago. using combivent and flovent. no sore throat, and some chest congestion Yelena Landaverde MD [address] [facility],[address], [place], [address], [employer] 02/23/2023 20:29:29 10/24/2023 text/html [facility] Nurse Triage Notes (Elizabeth Grijalva): Reason For Request: Patient was bit on the arm by her Kitten. Chief Complaints: Injury PMH: COPD/Asthma, Diabetes, Hypertension Allergies: Albuterol Other Allergies: Vicodin Comments: Admin Asst verified the member's name//address and phone number.Member reports to have been bitten by her cat on RUE multiple times. Reports that bite is open and deep. No longer bleeding. Member reports that cat has not had any of their vaccines yet. Member reports to feel safe at home. Education provided on the response time and the member was advised to monitor reported s/s and seek emergency treatment if needed. .................... .................... .................... .................... .................... .................... .................... . Supervisor Type Photography Note From Destini Castro: Pt with significant bite/scratch almendarez from kitten while both kittens in a fight. Kitten not yet fully vaccinated. A&ox3, vss, afebrile; one puncture site actively bleeding at present. C consulted, pt agreeable to go to ER by POV to have wounds irrigated and evaluated for stitches. Hand and wrist wrapped with clean dry dressing. Red flags reviewed. Supervisor Type Photography Allergies: Albuterol .................... .................... .................... .................... .................... .................... .................... . Disposition: Chitra Díaz MD [address] [facility],[address], [place], [address], [employer] 10/24/2023 13:07:25 01/30/2024 text/html [facility] Nurse Triage Notes (Figueroa Sanders): Reason For Request: Pt reporting problem going number number 2 primarily but notes having problems going number 1 as well Chief Complaints: Abdominal pain PMH: COPD/Asthma, Hypertension, Anxiety Disorder, Chronic Kidney Disease, Depression, Epilepsy/Seizure Disorder, Diabetes Mellitus Type 2 Comments: Admin Asst verified the Pt.'s name//address and phone number. Education provided on the response time and the Pt. was advised to monitor reported s/s and seek emergency treatment if needed. Pt reports being constipated? - Abdominal pain - Small BM earlier - Decreased urinary output - Increased bladder pain - 8/10 - Denies blood in stool - Denies N/V - Denies fever. Vague symptoms - Declined ER treatment - Medic on scene and unable to make contacted - [place] PD contact and will be dispatching a unit [facility] HPI: pain w trying to urinate, like she has to push. some constipation. .................... .................... .................... .................... .................... .................... .................... . Supervisor Type Photography Note From Bob Ac: Pt chief complaint today of lower abdominal pain most closely related to the Pubic/perineal area. Pt states that she has been having this problem for 4 days prior to [facility] visit. Pt states she has been experiencing 6/10 pain at rest with the pain increasing to 9/10 while attempting to have a bowel movement. Pt also says that she is newly today having issues with urination. Pt states this is also painful as well however there is no burn, itch or fowel smell. Pt does express fiery little voidance for either. Pt denies any blood in stool or urination. Pt states that she has been taking her senna as prescribed and has started an over the counter laxative with little positive effect.Pt denies nay CP, SOB, NVD and dizziness. Pt allergies discussed and recorded. Non neural focal exam, afebrile, vitals are fully WNL. Lungs are clear fully on auscultation. Pt abdomen is distended from what pt expresses about 2-3 inches. No pain in flank or radiating elsewhere. Pt does show wincing/ grimace on light palpation. No lower extremity edema noted. Pt is CAOX4 with a GCS of [facility] Yelena Landaverde consultedPt expressed that it would be in her best interest to be seen at. [facility] for more testing that [facility] cannot provide. Pt is also educated on the possible negative effects that can occur from waiting up t and including possible . Pt decides to wait till tomorrow for further diagnostics and treatmentPt is educated on red flag S&S and informed to call emergency services if any present. .................... .................... .................... .................... .................... .................... .................... . [facility] Consulted: Yelena Landaverde .................... .................... .................... .................... .................... .................... .................... . Disposition: Fulfilled Yelena Landaverde MD [address] [facility],[address], [place], [address], [facility] - [facility] 01/30/2024 19:47:48 03/07/2024 text/html HPI: Call returned to Vikki Willis to triage below. Reports having right foot swelling x 4 days. Mild redness. No bruising or rash. Pt endorses pain. Pt having to use cane. No injury. Pt states swelling does not improve with elevation. Per pt foot is warm to touch. Pt advised of disposition, no appts with provider. Unable to come into walk in center. Agrees to [facility] for evaluation. Confirmed demographics and allergies. .................... .................... .................... .................... .................... .................... .................... . [facility] Nurse Triage Notes (Treasure Childers): Chief Complaints: Swelling PMH: COPD/Asthma, Hypertension, Anxiety Disorder, Chronic Kidney Disease, Depression, Epilepsy/Seizure Disorder, Diabetes Mellitus Type 2, Asthma Comments: HPI reviewed Supervisor Type Photography Organization Information for James Greene Legal Name: [facility] Transportation Address: [address] [place] [address], [place] [address], Vp Genetic: Douglas Bucio MD CLIA No.: [id number] Supervisor Type Photography POC Test Results from James [facility] (15:03:32) pH: 7.39 pH units pCO2: 32.2 mmHg pO2: 41.0 mmHg Na: 135 mmol/L K: 3.7 mmol/L iCa: 1.21 mmol/L Cl: 106 mmol/L TCO2: 19.2 mEq/L Hct: 28 % Hb: 9.5 g/dL Glu: 103 mg/dL Lac: 1.3 mmol/L Cr: 0.77 mg/dL BUN: 7 mg/dL A .................... .................... .................... .................... .................... .................... .................... . Supervisor Type Photography Note From James Greene: This 63-year-old female with a history including not limited to COPD, HTN, anxiety/depression, CKD, seizures, DM type II, CHF requested a visit today to address painful edema in her lower extremities for about one week. Patient takes furosemide 60 mg daily and has been elevating her legs. Patient states her legs have never been this swollen before, they are painful to touch. She notes the right foot is more swollen than the left. Patient denies any chest pain, shortness of breath, orthopnea, [place], fevers, nausea, vomiting, diarrhea.Patient presents awake and alert, in no acute distress. Her vital signs are reasonably stable and she is afebrile. Nonfocal neurological exam. Normal gait. Lungs are clear throughout auscultation. Abdomen is soft, not tender, nondistended. +2 to +3 bilateral lower extremity edema. No erythema, increased warmth, point tenderness, cords and negative Homen? s sign. POC labs uploaded.I treated this patient with furosemide 40 mg IVP and potassium chloride ER 40 mEq PO. I provided education on appropriate Tylenol dosing. I instructed this patient to take furosemide 80 mg PO for the next two days, continue elevating her legs, follow up with primary care office tomorrow for repeat blood work and fluid retention status this week and to present to the emergency department for any new or worsening severe symptoms such as chest pain, shortness of breath, high fever, altered mental status. Patient was given the opportunity to ask questions and is agreeable to this plan. .................... .................... .................... .................... .................... .................... .................... . [facility] Consulted: Rosario Maguire .................... .................... .................... .................... .................... .................... .................... . Disposition: Fulfilled SEGMD: Patient denies trauma/she denies history of gout. Although her right foot is more swollen than the left she reports her legs are much more edematous than baseline and they are painful. She was hospitalized at [facility] the week of 02/20 with a potassium of 2 diverticulitis and a UTI. Her hemoglobin was noted to go from 11 down to 8 during that visit with no history of GI bleeding. She also has a PMH including but not limited to: Asthma/COPD/HTN/CHF/ /CKD/DM 2/epilepsy/(iron deficiency anemia, hyponatremia and hypokalemia per PCP note 03/03/2024)./Anxiety and depression. Rosario Maguire MD [address] [place] [address],[address], [place], [address], [facility] - [facility] 03/08/2024 00:13:48 OBGyn Episode No OBEpisode recorded.
--- OUTSIDE RECORDS SUMMARY | 2024-04-22 16:26 | XMS_ITS | Encounter Summary ---
Author Organization [employer] Address [address] [facility] [address] [address] Care Team Providers Care Reimbursement Rep Name Role Phone April Dave Primary Care Provider Reason for Visit * Reason Onset Date Comments Hospital Follow-up 12/16/2023 Encounter Details Date Type Department Care Team (Late st Contact Info) Description 12/16/2023 Telephone [facility] [address] [place] [address] April Dave ANP [address] [place] [address] Hospital Follow-up Social History Tobacco Use Types Packs/Day Years Used Date Smoking Tobacco: Every Day Cigarettes Passive Smoke Exposure: Current Smokeless Tobacco: Never Alcohol Use Standard Drinks/Week Comments Never 0 (1 standard drink = 0.6 oz pur e alcohol) PHQ-2 Answer Date Recorded Patient Health Questionnaire-2 Score 0 10/02/2022 Housing Stability Answer Date Recorded What is your housing situation today? I have kris arce 01/12/[address] you li ve. Do you have problems with any of the following? None of the above 01/12/2023 Food Insecurity Answer Date Recorded Within the past 12 months, y ou worried that your food would run out before you got money to buy more: Never True 01/12/2023 Within the past 12 months,th e food you bought just didn't last and you didn't have enough money to get more: Never True Transportation Answer Date Recorded In the past 12 months, has l ack of transportation kept you from medical appts, meetings, work or from getting things needed for daily living? No 01/12/2023 Utilities Answer Date Recorded In the past 12 months, has t he electric, gas, oil or water company threatened to shut off services in your home? No 01/12/2023 Depression Answer Date Recorded Patient Health Questionnaire-2 Score 0 10/02/2022 Internet Access Answer Date Recorded Internet Access Q1 Yes 11/27/2023 Internet Access Q2 Not on file 11/27/2023 Comments Unknown Sex and Gender Information Value Date Recorded Sex Assigned at Female 01/27/2022 10:19 AM EDT Legal Sex Female 10:19 AM EDT Gender Identity Female 01/27/2022 10:19 AM EDT Sexual Orientation Choose not to disclose 2021 10:19 AM EDT documented as of this encounter Miscellaneous Notes * Telephone Encounter - Mike Valentine - 12/16/2023 12:53 PM EDT Tc from pt requesting a HDF appt. Hospital: [facility] Date of admission: 12/09/23 Discharge date: 12/11/23 Diagnosed: Hand Surgery documented in this encounter Plan of Treatment Not on file documented as of this encounter Visit Diagnoses Not on filedocumented in this encounter Care Teams Reimbursement Rep Relationship Specialty Start Date End Date April Dave ANP [address] [place] [address] PCP - General Family Medicine 11/16/20 documented as of this encounter
--- OUTSIDE RECORDS SUMMARY | 2024-04-22 16:27 | XMS_ITS | Encounter Summary ---
Author Organization [facility] Address [address] [facility] [address] [place] [address] Phone Care Team Providers Care Tire Service Supervisor Name Role Phone Inez Dewitt NP Primary Care Provider [phone] Encounter Details Date Type Department Care Team (Late st Contact Info) Description 08/03/2023 Office Communication [facility] [address] [facility] [address] [place] [phone] Alan Nash MD [address] [facility] [address] [place] [address] Social History Tobacco Use Types Packs/Day Years Used Date Smoking Tobacco: Every Day Cigarettes Alcohol Use Standard Drinks/Week Comments No 0 (1 standard drink = 0.6 oz pur e alcohol) Comments Unknown Sex and Gender Information Value Date Recorded Sex Assigned at Not on file Legal Sex Female 5:06 PM EST Gender Identity Not on file Sexual Orientation Not on file documented as of this encounter Miscellaneous Notes * Telephone Encounter - Alan Nash MD - 08/03/2023 3:57 PM EDT Needs f/u with me in 4-6 wks documented in this encounter Plan of Treatment Not on file documented as of this encounter Visit Diagnoses Not on filedocumented in this encounter Care Teams Tire Service Supervisor Relationship Specialty Start Date End Date Inez Dewitt NP [address] [place] [address] PCP - General 04/09/20 documented as of this encounter
--- OUTSIDE RECORDS SUMMARY | 2024-04-22 16:27 | XMS_ITS | Clinical Summary ---
Author Organization [employer] Address [address] [facility] [address] [place] [address] Care Team Providers Care Compensation Supervisor Name Role Phone Bradford Edge Primary Care Provider [phone] Allergies Active Allergy Reactions Criticality Noted Date Comments Mohamdu Inhibitors Cough,Other 03/28/2010 Albuterol Shortness of breath High 05/15/2022 Not all albuterol Hydrocodone 03/28/2010 Albuterol Sulfate Shortness of breath High Not all albuterol Tramadol Other 03/25/2022 Per note in preferred pharmacy (2019), patient reported tramadol use to seizure Per note in preferred pharmacy (2019), patient reported tramadol use to seizure Medications * This document contains information received from the source organization and may not represent a complete record from that organization. Skin Protectants, Misc. (eucerin) cream apply 1 small amount by Topical route 3 times every day 019 Active glucose (Glutose) 40 % gel oral gel use 1 tube as needed for hypoglycemia (less than 70mg/ml) Active imipramine (Tofranil) 25 MG tablet Take 2 tablets by mouth at bedtime. 021 Active polyethylene glycol, PEG, 3350 (Glycolax) 17 GM/SCOOP powder take (17G) by oral route every day mixed with 8 oz. water, juice, soda, coffee or tea 019 Active Blood Glucose Monitoring Suppl (FreeStyle Lite) w/Device kitIndications: Type 2 diabetes mellitus with stage 3 chronic kidney disease, with long-term current use of insulin, unspecified whether stage 3a or 3b CKD (CMS/HCC) 1 kit See administration instructions. Use for blood sugars as needed 1 kit Active furosemide (Lasix) 40 MG tablet TAKE 1 AND 1/2 TABLETS BY MOUTH IN THE MORNING Active TRUEplus Lancets 33G misc TEST BLOOD SUGAR 3 TIMES A DAY Active omeprazole (PriLOSEC) [address] capsule TAKE 1 CAPSULE BY MOUTH EVERY MORNING Active Blood Pressure kitIndications: Essential hypertension,Be nign hypertensive renal disease 1 kit in the morning. 1 kit Active ketoconazole (Nizoral) 2 % shampooIndicati ons:Dandruff Apply topically 3 (three) times a week. 120 mL 3 023 Active ipratropium-alb uterol (Combivent Respimat) 20-100 MCG/ACT inhalerIndicati ons:Moderate persistent asthma without complication Inhale 1 puff Every 4-6 hours as needed for wheezing. 4 g Active Misc. Devices (Pulse Oximeter For Finger) miscIndications :Moderate persistent asthma without complication 1 each 2 times daily. 1 each 023 Active Diclofenac Sodium 1 % gelIndications: Acute pain of left shoulder APPLY 2 GRAMS TO AFFECTED AREA(S) TWICE DAILY 100 g 023 Active lidocaine (Lidoderm) 5 % patchIndication s:Acute pain of left shoulder APPLY 1 PATCH TOPICALLY TO SKIN, LEAVE ON FOR 12 HOURS AND OFF FOR 12 HOURS DIRECTED DIRECTED 30 patch 2 023 Active glucose blood (FREESTYLE LITE) test strip Check by fingerstick route 3 times every day 100 each 023 Active acetaminophen (Tylenol) 500 MG tablet Take 2 tablets (1,000 mg) by mouth every 6 (six) hours if needed for moderate pain or fever for up to 25 doses. 30 tablet 024 Active Alcohol Swabs (Alcohol Prep) 70 % pads USE FOUR TIMES DAILY NEEDED 100 each 024 Active cetirizine (ZyrTEC) 10 MG tablet TAKE 1 TABLET BY MOUTH EVERY MORNING 90 tablet 3 024 Active fluticasone (Flonase) 50 MCG/ACT nasal sprayIndication s:Allergic rhinitis, unspecified seasonality, unspecified trigger INHALE 2 SPRAYS IN EACH NOSTRIL ONCE DAILY 16 g 5 024 Active Aspirin Low Dose 81 MG EC tablet TAKE 1 TABLET BY MOUTH AT BEDTIME 90 tablet 3 024 Active D3 Super Strength 50 MCG (2000 UT) capsule TAKE 1 CAPSULE BY MOUTH EVERY MORNING 90 capsule 3 Active folic acid (Folvite) 1 MG tabletIndicatio ns:Low folic acid TAKE 1 TABLET BY MOUTH EVERY MORNING 90 tablet 3 024 Active SITagliptin (Januvia) 50 MG tabletIndicatio ns:Diabetic nephropathy associated with type 2 diabetes mellitus (CMS/HCC) Take 1 tablet (50 mg) by mouth in the morning. 90 tablet 1 024 Active bacitracin-poly myxin b (Polysporin) ointment Apply topically 2 times daily. 15 g 024 Active amLODIPine (Norvasc) 2.5 MG tablet TAKE 1 TABLET BY MOUTH EVERY EVENING 90 tablet 1 Active sertraline (Zoloft) 50 MG tabletIndicatio ns:Depressive disorder TAKE 1 TABLET BY MOUTH EVERY MORNING 90 tablet 1 024 Active cyanocobalamin (Vitamin B-12) 1000 MCG tablet Take 1 tablet by mouth in the morning. Active senna (Senokot) 8.6 MG tablet Take 2 tablets by mouth at bedtime. 024 Active olmesartan (BENIcar) 40 MG tablet Take 1 tablet (40 mg) by mouth in the morning. 90 tablet 3 024 Active levETIRAcetam (Keppra) 500 MG tabletIndicatio ns:Seizure disorder (CMS/HCC) Take 1 tablet (500 mg) by mouth 2 times daily. 60 tablet 11 024 2024 Active Calcium Carb-Cholecalci ferol 600-10 MG-MCG tablet TAKE 1 TABLET BY MOUTH TWICE DAILY IN THE MORNING AND IN THE EVENING 60 tablet 5 024 Active FeroSul 325 (65 Fe) MG tabletIndicatio ns:Iron deficiency anemia, unspecified iron deficiency anemia type TAKE 1 TABLET BY MOUTH EVERY MORNING WITH VITAMIN C 90 tablet 1 024 Active atorvastatin (Lipitor) 40 MG tablet TAKE 1 TABLET BY MOUTH AT BEDTIME 90 tablet 3 024 Active rOPINIRole (Requip) 1 MG tabletIndicatio ns:Restless Leg Syndrome Take 1 tablet (1 mg) by mouth 2 times daily. 60 tablet 024 Active Potassium Bicarb-Citric Acid 20 MEQ effervescent tabletIndicatio ns:Hypokalemia Take 1 tablet by mouth 2 times daily. Take immediately after eating. Dissolve in 2-3 oz water. 10 tablet 024 Active topiramate (Topamax) 100 MG tabletIndicatio ns:Seizure disorder (CMS/HCC) Take 1 tablet (100 mg) by mouth 2 times daily. 60 tablet 3 025 Active insulin pen needle (UltiCare Mini Pen [place]) 31G x 6 mm misc USE DIRECTED FOUR TIMES DAILY 100 each 11 024 2024 Discontinued(T herapy completed) topiramate (Topamax) 100 MG tabletIndicatio ns:Seizure disorder (CMS/HCC) TAKE 1 TABLET BY MOUTH TWICE DAILY IN THE MORNING AND AT BEDTIME 60 tablet 3 024 2024 Discontinued(R eorder (will not trigger notification to Pharmacy)) Active Problems Problem Noted Date Diagnosed Date Continuous severe abdominal pain 02/02/2024 Assessment & Plan (02/02/2024 6:37 PM EST): Reports severe abdominal pain. Tenderness on exam with mild palpation. Positive guarding. Empty rectal vault. Had KUB done yesterday 02/01/24 that showed nonspecific prominent loops of small bowel in the left abdomen that could be related with ileus or early obstruction. Equivocal colonic wall thickening. Recommended CT. Very high suspicion based on today's symptoms and exam that pt is developing a bowel obstruction. Will send pt to the ED for STAT CT Abdomen & Pelvic 02/02/24. Smoking 1/2 pack a day or less 12/03/2022 Recurrent pain of right knee 12/03/2022 Overview (12/03/2022): Requests orthopedics referral. No swelling on exam today. Gastroesophageal reflux disease 03/25/2022 Iron deficiency anemia, unspecified 03/25/2022 Renal osteodystrophy 12/24/2021 Dissociative convulsions 12/24/2021 Diabetic nephropathy associa adis with type 2 diabetes mellitus 01/28/2021 Benign hypertensive renal disease 01/28/2021 Dysthymia 08/06/2020 Transient cerebral ischemia 08/25/2017 Peripheral neuropathic pain 05/05/2017 Stage 3 chronic kidney disease 02/03/2017 Allergic rhinitis 01/05/2015 Constipation 01/05/2015 Depressive disorder 01/05/2015 Essential hypertension 01/05/2015 Hyperlipidemia 01/05/2015 Moderate persistent asthma 01/05/2015 Obstructive sleep apnea syndrome 01/05/2015 Primary osteoarthritis involving multiple joints 01/05/2015 Restless legs 01/05/2015 Seizure disorder 01/05/2015 Vitamin D deficiency 01/05/2015 Resolved Problems Problem Noted Date Diagnosed Date Resolved Date Animal bite 10/26/2023 03/16/2024 Assessment & Plan (10/26/2023 2:39 PM EDT): -pt advised to start Augmentin today to see improvement in symptoms -continue tylenol for pain -return to clinic in 2 days for nurse visit. Informed that she will need to be sent to the ED for IV antibiotic treatment if no improvement with by mouth antibiotic. -pt agrees with the plan Encounters * This document contains information received from the source organization and may not represent a complete record from that organization. Date Type Department Care Team Description 04/22/2024 2:15 PM EST Office Visit [facility] [address] [place] [address] Bradford Edge ANP Diabetic nephropathy associated with type 2 diabetes mellitus ([facility]) (Primary Dx); Mid back pain; Iron deficiency anemia, unspecified iron deficiency anemia type; Hypokalemia 04/22/2024 Travel 04/22/2024 Telephone [facility] [address], [place] [phone] Miesha Zelaya MA chart prep 04/13/2024 Telephone [facility] [address] [place] [address] Aicha Abebe, ash kier boiler Question 04/12/2024 Orders Only [facility] [address] [place] [address] Bradford Edge ANP 04/12/2024 Refill [facility] [address] [place] [address] Bradford Edge ANP 04/11/[address] [address] Bradford Edge ANP Seizure disorder (CMS/HCC) 03/28/[address] [address] Bradford Edge ANP 03/21/2024 2:00 PM EST Office Visit [facility] [address] [place] [address] Bradford Edge ANP Stool mucus (Primary Dx); Unable to maintain weight; Unexplained weight loss; Complex care coordination; Screening mammogram for breast cancer 03/17/[address] [address] Sara Amado MD NTTS 03/16/2024 Orders Only [address] [address] Bradford Edge ANP Hypokalemia (Primary Dx) 03/15/[address] [address] Emily Pitts, RN NTTS 03/15/2024 Orders Only GENERIC EXTERNAL DATA DEPARTMENT Provider, Generic External Data 03/15/[address] [address] Bradford Edge ANP Results 03/14/2024 2:00 PM EST Office Visit [facility] [address] [place] [address] MD Acute diarrhea (Primary Dx); Restless legs 03/14/2024 Telephone [facility] [address] [place] [address] James Farris MD 03/14/[address] [address] Aicha Abebe, RN Nurse Triage 03/08/[address] [address] Bradford Edge ANP Nurse Triage 03/08/[address] [address] Bradford Edge ANP callback requested 03/08/2024 Telephone [facility] [place] [address] Bradford Edge ANP 03/07/[address] [address] Bradford Edge ANP Nurse Triage 03/03/2024 1:15 PM EST Office Visit [facility] [place] [address] Bradford Edge ANP Iron deficiency anemia, unspecified iron deficiency anemia type (Primary Dx); Hypokalemia; Rash 03/03/2024 Travel 03/02/2024 Telephone [facility] [place] [address] Miesha Zelaya MA chart prep 02/23/2024 Orders Only [address] [address] Bradford Edge ANP Primary osteoarthritis involving multiple joints (Primary Dx); Peripheral neuropathic pain 02/23/[address] [address] Tiny Bee [place] DME from & 02/20/2024 Orders Only GENERIC EXTERNAL DATA DEPARTMENT Provider, Generic External Data 02/17/2024 4:20 PM EST Office Visit [facility] [place] [address] MD Constipation, unspecified constipation type (Primary Dx); Incomplete defecation 02/17/[address] [address] Bradford Edge ANP Nurse Triage 02/16/2024 Refill [facility] [place] [address] Bradford Edge ANP 02/15/[address] [address] Tiny Bee [place] DME from [facility] 02/11/2024 2:00 PM EST Office Visit [place] [address] Bradford Edge ANP Hyponatremia (Primary Dx); Hypokalemia; Iron deficiency anemia, unspecified iron deficiency anemia type; Stage 3 chronic kidney disease, unspecified whether stage 3a or 3b CKD ([facility]); Smoking 1/2 pack a day or less; Low TSH level 02/11/2024 Travel 02/08/2024 6:00 PM EST Office [facility] [address] [address] Amilcar Mandujano MD Other constipation (Primary Dx) 02/03/2024 Telephone [facility] [address] [place] [address] Bradford Edge ANP Nurse Triage 02/03/2024 Orders Only GENERIC EXTERNAL DATA DEPARTMENT Provider, Generic External Data 02/02/2024 6:40 PM EST [facility] [address] [address] Sophia Robles MD Continuous severe abdominal pain (Primary Dx) 02/02/2024 Travel 02/02/2024 Patient Outreach [address] [address] Bradford Edge ANP Pre-visit Planning (Pre-visit planning - unable to leave a message, call did not go through, to try again later. CC tried twice. / ) 02/01/2024 Orders Only GENERIC EXTERNAL DATA DEPARTMENT Provider, Generic External Data from Last 3 Months Immunizations Name Administration Dates Next Due Hep A, Adult 08/17/2017,04/11/2016 Hep B, adult 08/17/2017, 7,09/24/2016,07/21 Influenza injectable quadriv alent IIV4 with preservative 01/20/2018,12/13/2015,01/05/2015 Influenza injectable quadriv alent preservative free 05/15/2022,03/04/2021,02/07/2020,12/23,12/16/2017,02/03/2017,07/10/2014 Influenza, IIV3, injectable 12/29/2015,0 12/02/2012,12/01/2012,11/23,01/09/2011 Influenza, Split (incl. larisa fied surface antigen) 05/28/2014,04/13/2014 Influenza, Unspecified 12/29/2015,2012,12/01/2012,11/23,01/09/2011 Influenza, seasonal, injecta ble, preservative free 12/29/2015,01/25/2014 Moderna Covid-19 Vaccine 12+ 07/06/2020,06/09/19 21 Moderna Covid-19 Vaccine 6+ Bivalent 05/15/2022 Pneumococcal Conjugate PCV 13 11/07/2014 Pneumococcal Conjugate PCV 20 07/01/2023 Pneumococcal Polysaccharide PPSV23 07/27/2014,,08/04/2011 Rabies, IM Diploid Cell Culture 12/08/2023 TD (adult), 2 Lf tetanus tox oid, preservative free, adsorbed 05/05/2023,12/08/2006 Tdap 12/05/2023,10/06/2011 Zoster, Recombinant 03/08/2019,12/29/2018 Zoster, live 03/08/2019,12/29/2018 Social History Tobacco Use Types Packs/Day Years Used Date Smoking Tobacco: Every Day Cigarettes Passive Smoke Exposure: Current Smokeless Tobacco: Never Tobacco Cessation:Ready to Q uit: Not Asked; Counseling Given: Not Answered Alcohol Use Standard Drinks/Week Comments Never 0 (1 standard drink = 0.6 oz pur e alcohol) Depression Answer Date Recorded Patient Health Questionnaire-9 Score 1 12/31/2023 Patient Health Questionnaire-9 Score 1 12/31/2023 Last PHQ-9: Questionnaire Data Not on file 1 Housing Stability Answer Date Recorded What is [...] Answer Date Recorded Patient Health Questionnaire-2 Score 1 12/31/2023 Internet Access Answer Date Recorded Internet Access Q1 No 12/31/2023 Internet Access Q2 Not on file 12/31/2023 Comments Unknown Sex and Gender Information Value Date Recorded Sex Assigned at Female 01/27/2022 10:19 AM EDT Legal Sex Female 10:19 AM EDT Gender Identity Female 01/27/2022 10:19 AM EDT Sexual Orientation Choose not to disclose 2021 10:19 AM EDT Last Filed Vital Signs Vital Sign Reading Time Taken Comments Blood Pressure 133/66 04/22/2024 2:34 PM EST Pulse 104 04/22/2024 2:34 PM EST Temperature 36.4 ??C (97.6 ??F) 04/22/2024 2:34 PM ES T Respiratory Rate 14 04/22/2024 2:34 PM EST Oxygen Saturation 99% 04/22/2024 2:34 PM EST Inhaled Oxygen Concentration - - Weight 55.5 kg (122 lb 6.4 oz) 04/22/2024 2:34 P M EST Height 147.3 cm (4' 10 ) 02/02/2024 5:33 PM EST Body Mass Index 25.58 02/02/2024 5:33 PM EST Plan of Treatment Health Maintenance Due Date Last Done Comments CT Colonography 1960 FIT DNA/Cologuard 1960 FIT 1960 FOBT 1960 HIV Screening 1960 Lipid Panel 1960 Sigmoidoscopy 1960 Eye Exam 1970 Hepatitis C Screening 1978 Pap Smear 1981 RSV Patients and Patients Aged 60 years or older (1 - Risk 60-74 years 1-dose series) 2020 Mammogram 06/06/2021 06/07/2019, 08/19/2017 Cervical Cancer Screening 10/30/2021 HPV/Cotest 10/30/2021 10/30/2016 COVID-19 Vaccine ( season) 2023 05/15/2022, 07/06/2020, 06/08/2020 Influenza Vaccine (#1) 2023 3, 03/04/2021, 02/07/2020, Additional history exists Diabetes: Foot Exam 01/03/2024 01/02/2023, 01/02/2023, 01/02/2023, Additional history exists Diabetes: Hemoglobin A1C 07/21/2024 025, 12/31/2023, 10/06/2023, Additional history exists Depression Screening 12/30/2024 12/31/2023, 12/31/19 SDOH Screening 12/30/2024 12/31/2023 Alcohol/Substance Use Screening 04/22/2025 04/22/2024 Tobacco Screening 04/22/2025 04/22/2024 Colonoscopy 09/05/2026 09/05/2021 Colorectal Cancer Screening 09/05/2026 DTaP/Tdap/Td Vaccines (4 - Td or Tdap) 12/04/2033 12/05/2023, 05/05/2023, 10/06/2011, Additional history exists Hepatitis A Vaccines Completed 08/17/2017, 04/11/19 17 Hepatitis B Vaccines Completed 08/17/2017, 02/03/2017, 09/24/2016, Additional history exists Zoster Vaccines Completed 03/08/2019, 02/27, 12/29/2018, Additional history exists Pneumococcal Vaccine: Pediatrics (0 to 5 Years) and At-Risk Patients (6 to 64 Years) Completed 07/01/2023, 11/07/2014, 07/27/2014, Additional history exists HIB Vaccines Aged Out No longer eligi ble based on patient's age to complete this topic HPV Vaccines Aged Out No longer eligi ble based on patient's age to complete this topic IPV Vaccines Aged Out No longer eligi ble based on patient's age to complete this topic Meningococcal Vaccine Aged Out No marlys dean eligible based on patient's age to complete this topic RSV under 20 months Aged Out No longe r eligible based on patient's age to complete this topic Rotavirus Vaccines Aged Out No longer eligible based on patient's age to complete this topic Procedures Procedure Name Priority Date/Time Associated Diagnosis Comments XR THORACIC SPINE 2 VIEWS Routine 04/22/2024 3:25 PM EST Mid back pain POCT GLYCATED HEMOGLOBIN, TOTAL Routine 04/22/2024 3:06 PM EST Diabetic nephropathy associated with type 2 diabetes mellitus (CMS/HCC) POCT GLUCOSE Routine 04/22/2024 3:06 PM EST Diabetic nephropathy associated with type 2 diabetes mellitus (CMS/HCC) LIPASE Routine 03/15/2024 11:31 AM EST MAGNESIUM Routine 03/15/2024 11:31 AM EST COMPREHENSIVE METABOLIC PANEL Routine 03/15/2024 11:31 AM EST CBC WITH AUTO DIFFERENTIAL Routine 03/15/2024 11:31 AM EST HEMOGLOBIN + HEMATOCRIT Routine 03/14/2024 1:54 PM EST Iron deficiency anemia, unspecified iron deficiency anemia type BASIC METABOLIC PANEL Routine 03/14/2024 1:[address] ABDOMEN PELVIS W CONTRAST Routine 02/20/2024 11:15 PM EST URINALYSIS, COMPLETE, WITH REFLEX TO CULTURE Routine 02/20/2024 10:39 PM EST MAGNESIUM Routine 02/20/2024 8:58 PM EST POTASSIUM Routine 02/20/2024 8:[address] ABDOMEN PELVIS W CONTRAST Routine 02/03/2024 1:35 PM EST LIPASE Routine 02/03/2024 12:06 PM EST MAGNESIUM Routine 02/03/2024 12:06 PM EST COMPREHENSIVE METABOLIC PANEL Routine 02/03/2024 12:06 PM EST CBC WITH AUTO DIFFERENTIAL Routine 02/03/2024 12:06 PM EST COMPREHENSIVE METABOLIC PANEL Routine 02/01/2024 7:47 PM EST APTT Routine 02/01/2024 7:47 PM EST PROTHROMBIN TIME-INR Routine 02/01/2024 7:47 PM EST CBC WITH AUTO DIFFERENTIAL Routine 02/01/2024 7:47 PM EST XR KUB AND UPRIGHT 2 VIEWS Routine 02/01/2024 7:24 PM EST HM COLONOSCOPY Routine 09/05/2021 11:04 AM EDT BI MAMMOGRAM SCREENING BILATERAL Routine 06/07/2019 12:30 PM EDT ZZZ HISTORICAL HPV MRNA E6/E7 Routine 10/30/2016 3:00 PM EDT from Last 3 Months or Most Recently Relevant to Health Maintenance Results * XR Thoracic Spine 2 Views (04/22/2024 3:25 PM EST) Anatomical Region Laterality Modality Spine, T-spine Radiographic Steffi ging 04/22/2024 3:25 PM EST Narrative 04/22/2024 3:51 PM EST ?[facility] ?[address] ?[place] [address] ?XRay Report ? Signed ? Patient: Washburne,Vikki J ?MR#: [id number] ?? [id number] ? : 1960 ?Acct:[id number] ? Age/Sex: 64 / F ?ADM Date: 01/24/25 ? Loc: HO.HHCX ? Attending Dr: Bradford Edge CAPACITY PLANNING ENGINEER ? Ordering Physician: BRADFORD EDGE NP ?? Date of Service: 04/22/24 ?? Procedure(s): XR thoracic spine 2V ?? Accession Number(s): [id number] ? cc: BRADFORD EDGE NP ? EXAMINATION: ??XR THORACIC SPINE 2 VIEWS ? HISTORY: PAIN ? COMPARISON: There are no prior studies for comparison. ? FINDINGS: ??AP and lateral views of the thoracic spine are submitted. ? Osseous mineralization is normal. ??The vertebral bodies maintain normal ?? height and alignment without evidence of fracture or subluxation. ? There is diffuse moderate degenerative disc disease with disc space ?? narrowing and osteophyte formation. ??The visualized paraspinal soft ?? tissues are unremarkable. ? XR/XR thoracic spine 2V ?? IMPRESSION: ?? Diffuse degenerative disc disease as described. ? Electronically signed by: ??Jose Grissom MD ??04/22/2024 03:48 PM EST ?? RP ? Dictated By: ?Jose Grissom MD ? Signed By: ?<Electronically signed by Jose Grissom MD in OV> ?04/22/24 1548 ? DD/ 1525 ? TD/TT: 04/22/24 1538 ? Operating Room Manager: ? Procedure Note Donagus, Image - 04/22/2024 [place] [address] XRay Report Signed Patient: Vikki Willis JMR#: [id number] : 1960cct:[id number] Age/Sex: 64 / FADM Date: 04/22/24 Loc: HO.HHCX Attending Dr: Bradford Edge NP Ordering Physician: BRADFORD EDGE NP Date of Service: 04/22/24 Procedure(s): XR thoracic spine 2V Accession Number(s): [id number] cc: BRADFORD EDGE NP EXAMINATION: XR THORACIC SPINE 2 VIEWS HISTORY: PAIN COMPARISON: There are no prior studies for comparison. FINDINGS: AP and lateral views of the thoracic spine are submitted. Osseous mineralization is normal. The vertebral bodies maintain normal height and alignment without evidence of fracture or subluxation. There is diffuse moderate degenerative disc disease with disc space narrowing and osteophyte formation. The visualized paraspinal soft tissues are unremarkable. XR/XR thoracic spine 2V IMPRESSION: Diffuse degenerative disc disease as described. Electronically signed by: Jose Grissom MD 04/22/2024 03:48 PM [facility] Dictated By: Jose Grissom MD Signed By: <Electronically signed by Jose Grissom MD in OV> 04/22/24 1548 DD/ 1525 TD/TT: 04/22/24 1538 Operating Room Manager: us Bradford Edge ANP IMG XR PROCEDURES Final Result * POCT HGB A1C (04/22/2024 3:06 PM EST) Hemoglobin A1C 5.2 4.0 - 6.0 % QC Media Lot # [id number] Lot# Expiration Date Blood 04/22/2024 3:06 PM EST us Bradford Edge ANP POINT OF CARE TEST ENTER/EDIT OR DERABLES Final Result * POCT Glucose (04/22/2024 3:06 PM EST) Glucose Blood, POC 159 60 - 200 mg/dL QC Media Lot # [id number] Lot# Expiration Date Blood Capillary blood specimen / Unknown 04/22/2024 3:06 PM EST us Bradford Edge ANP POINT OF CARE TEST ENTER/EDIT OR DERABLES Edited Result - Final * (ABNORMAL) CBC auto differential (03/15/2024 11:31 AM EST) Only the most recent of3 resultswithin the time period is included. White Blood Count 3.9(L) 4.8 - 10.8 X10*3/uL [facility] Red Blood Count 3.16(L) 4.20 - 5.50 X10*6/uL [facility] Hemoglobin 8.6(L) 12.0 - 16.0 g/dl [facility] Hematocrit 26.6(L) 37.0 - 47.0 % [facility] Mean Corpuscular Volume 84.2 80.0 - 98.0 fL [facility] Mean Corpuscular Hemoglobin 27.2 27.0 - 33.0 pg [facility] Mean Corpuscular HGB Conc 32.3 31.0 - 35.0 g/dl [facility] Red Cell Distribution Width 15.9 11.0 - 16.0 % [facility] Platelet Count 193 160 - 400 X10*3/uL [facility] Mean Platelet Volume 9.5 9.4 - 12.3 fL [facility] Neutrophils Percent Auto 50.5 45 - 73 % [facility] Imm Gran Pct Auto 0.5(H) 0.0 - 0.4 % [facility] Lymphocytes Percent Auto 40.5(H) 20 - 40 % [facility] Monocytes Percent Auto 8.0 2 - 11 % [facility] Eosinophils Percent Auto 0.0 0 - 4 % [facility] Basophils Percent Auto 0.5 0 - 2 % [facility] NRBC Pct Auto 0.0 0.0 - 0.2 /100WBC [facility] Neutrophils Absolute Auto 2.0 2.0 - 8.3 x10*3/uL [facility] Imm Gran Abs Auto 0.02 0.00 - 0.03 X10*3/uL [facility] LABS Lymphocytes Absolute Auto 1.6 1.2 - 4.9 X10*3/uL [facility] Monocytes Absolute Auto 0.3 0.1 - 1.2 X10*3/uL [facility] Eosinophils Absolute Auto 0.0 0.0 - 0.4 X10*3/uL [facility] Basophils Absolute Auto 0.0 0.0 - 0.2 X10*3/uL [facility] NRBC Abs Auto 0.000 0.0 - 0.012 X10*3/uL [facility] 03/15/2024 11:3 1 AM EST 03/15/2024 11:39 AM EST us Generic External Data Provider LAB BLOOD ORDERAB LES Final Result [facility] [address] [place] [address] [phone] * Magnesium (03/15/2024 11:31 AM EST) Only the most recent of3 resultswithin the time period is included. Magnesium 1.6 1.6 - 2.6 mg/dL [facility] 03/15/2024 11:3 1 AM EST 03/15/2024 11:39 AM EST Generic External Data Provider LAB BLOOD ORDERAB LES Final Result Performing Organization Address [facility] Co de Phone Number [facility] [address] [place] [phone] * Lipase (03/15/2024 11:31 AM EST) Only the most recent of2 resultswithin the time period is included. Pathologist [facility] Lipase 27 8 - 78 U/L [facility] 03/15/2024 11:3 1 AM EST 03/15/2024 11:39 AM EST Generic External Data Provider LAB BLOOD ORDERAB LES Final Result Performing Organization Address [facility] Phone Number [facility] [address] [place] [phone] * (ABNORMAL) Comprehensive Metabolic Panel (03/15/2024 11:31 AM EST) Only the most recent of3 resultswithin the time period is included. Pathologist [facility] Sodium 138 135 - 145 mmol/L [facility] Potassium 3.0(L) 3.3 - 5.1 mmol/L [facility] Chloride 107 96 - 108 mmol/L [facility] Carbon Dioxide 23 22 - 29 mmol/L [facility] Anion Gap 11(L) 12 - 20 [facility] Urea Nitrogen (BUN) 6(L) 9 - 16 mg/dL [facility] Creatinine, Serum 0.74 0.5 - 1.4 mg/dL [facility] Creatinine Clr Calc Pharmacy 58.7 [facility] Comment:Provided height and weight: 147.32 cm,58.06 kg.eGFR (calculated from the MDRD study equation) and eCrCl(calculated from the Cockcroft-Gault equation) are based ondifferent parameters and may not yield comparable results.If eCrCl result is absurd, please check patient'sheight/weight. Estimated Glomerular Filt Rate >60 [facility] Comment:Chronic Kidney Disea se: Estimated GFR < 60 mL/min/1.70x5Vpltsy Kidney Disease: Estimated GFR < 15 mL/min/1.73m2 Glucose 88 60 - 115 mg/dL [facility] Calcium 8.9 8.4 - 10.2 mg/dL [facility] Bilirubin, Total 0.2 0.0 - 1.0 mg/dL [facility] Aspartate Amino Transferase 20 5 - 31 U/L [facility] Alanine Aminotransferase <6 0 - 31 U/L [facility] Total Protein 6.7 6.5 - 8.0 g/dL [facility] Albumin Level 3.1(L) 3.5 - 5.0 g/dL [facility] Alkaline Phosphatase 93 39 - 117 U/L [facility] 03/15/2024 11:3 1 AM EST 03/15/2024 11:39 AM EST us Generic External Data Provider LAB BLOOD ORDERAB LES Final Result Performing Organization Address City/[facility]/ZIP Co de Phone Number [facility] [address] [place] [phone] * (ABNORMAL) Hemoglobin and Hematocrit (03/14/2024 1:54 PM EST) Hemoglobin 8.6(L) 12.0 - 16.0 g/dl [facility] Hematocrit 26.5(L) 37.0 - 47.0 % [facility] Blood Venous blood specimen / Unknown 03/14/2024 1:54 PM EST 03/14/2024 4:23 PM EST us [facility] LAB BLOOD ORDERABLES Final Resul t [facility] [address] [place] [phone] * (ABNORMAL) Basic Metabolic Panel (03/14/2024 1:54 PM EST) Sodium 136 135 - 145 mmol/L [facility] Potassium 2.7(LL) 3.3 - 5.1 mmol/L [facility] Comment:Critical value for t est(s):POTS Results called to and readback by: DR. FARRIS Person calling:FERMÍN Date: 03/14/24Time: 1815 Chloride 105 96 - 108 mmol/L [facility] Carbon Dioxide 23 22 - 29 mmol/L [facility] Anion Gap 11(L) 12 - 20 [facility] Urea Nitrogen (BUN) 8(L) 9 - 16 mg/dL [facility] Creatinine, Serum 0.86 0.5 - 1.4 mg/dL [facility] Estimated Glomerular Filt Rate >60 [facility] Comment:Chronic Kidney Disea se: Estimated GFR < 60 mL/min/1.44z1Oqaawf Kidney Disease: Estimated GFR < 15 mL/min/1.73m2 Glucose 102 60 - 115 mg/dL [facility] Calcium 8.3(L) 8.4 - 10.2 mg/dL [facility] Blood Venous blood specimen / Unknown 03/14/2024 1:54 PM EST 03/14/2024 4:23 PM EST [facility] LAB BLOOD ORDERABLES Final Resul t [facility] [address] [place] [address] [phone] * CT Abdomen Pelvis w/ Contrast (02/20/2024 11:15 PM EST) Only the most recent of2 resultswithin the time period is included. Anatomical Region Laterality Modality Body, Pelvis, Abdomen Computed T omography 02/20/2024 11:1 5 PM EST Narrative 02/21/2024 12:55 AM EST ? [facility] ?[address] ?[place] [address] ? CT Scan Report ? Signed ? Patient: Washburne,Vikki J ?MR#: [id number] ?? [id number] ? : 1960 ?Acct:[id number] ? Age/Sex: 63 / F ?ADM Date: 02/20/24 ? Loc: HO.ED ? Attending Dr: ? Ordering Physician: Kenyon Montgomery MD ?? Date of Service: 02/20/24 ?? Procedure(s): CT abdomen pelvis w IV con ?? Accession Number(s): [id number] ? cc: BRADF[facility] EDGE NP; Kenyon Montgomery MD ? EXAMINATION: ?? CT ABDOMEN AND PELVIS WITH CONTRAST ? CLINICAL INFORMATION: ?? Abdominal pain ? COMPARISON: ?? CT abdomen and pelvis 02/03/2024 ? TECHNIQUE: ?? Multidetector volumetric images were obtained from the superior aspect ?? of the liver through the pubic symphysis following administration 85 mL ?? of Omnipaque 350 intravenous contrast. Sagittal and coronal reformatted ?? images were obtained on the technologist's workstation. ? Oral contrast: No ? This CT examination was performed using dose optimization techniques as ?? appropriate, variously including the following: ?? *Automated exposure control ?? *Adjustment of mA and/or kV according to patient size (this includes ?? techniques or standardized protocols for targeted exams where dose is ?? matched to indication/reason for exam; i.e. extremities or head) ?? *Use of iterative reconstruction technique ? DLP: ?? 394 mGy-cm ? FINDINGS: ?? LUNG BASES: Mild posterior dependent atelectasis of the left lung base. ? LIVER, GALLBLADDER, AND BILIARY TREE: The liver is normal in size, ?? shape, and attenuation. No focal hepatic lesion or biliary ductal ?? dilatation is present. Status post cholecystectomy. Mild chronic ?? postcholecystectomy ectasia of the common bile duct and intrahepatic ?? biliary ducts stable compared with 02/03/2024. ? PANCREAS: Unremarkable. ? SPLEEN: Single subcentimeter rounded low density focus (series 3 image ?? 22) which is benign in appearance and on the basis of this examination ?? warrants no additional imaging follow-up. ? ADRENAL GLANDS: Unremarkable. ? KIDNEYS AND URETERS: 1.6 cm rounded low density focus inferior pole ?? left kidney likely representing a benign, simple cyst 14 no additional ?? imaging follow-up on the basis of this exam. No hydronephrosis. No ?? perinephric inflammatory changes. ? BLADDER: Unremarkable. ? GASTROINTESTINAL TRACT: Moderate sigmoid diverticulosis. Concentric ?? contiguous mural thickening of the middle and distal segments of the ?? sigmoid colon similar to findings present 02/03/2024. No focal ?? inflammatory changes of the adjacent sigmoid mesentery. No free ?? intraperitoneal fluid or gas collections noted. No intestinal ?? dilatation visualized. Normal appearance of the terminal ileum. The ?? appendix is not visualized no free intraperitoneal fluid or gas ?? collections identified. Normal appearance of the stomach and duodenum. ? ABDOMINAL WALL: ? Umbilical hernia containing fat without inflammatory changes measuring ?? 1 cm. ? LYMPH NODES: Normal. ? VASCULAR: Diffuse calcific and noncalcific atherosclerosis ? PELVIC VISCERA: Normal appearance of the uterus aside from mild uterine ?? atrophy. No adnexal lesions. ? OSSEOUS STRUCTURES: No suspicious skeletal lesions. ? CT/CT abdomen pelvis w IV con ?? IMPRESSION: ?? *Moderate concentric contiguous mural inflammatory changes of the ?? middle and distal portions of the sigmoid colon. Similar findings were ?? present on the 02/03/2024 examination. Additionally, moderate diffuse ?? sigmoid diverticulosis is present. Overall, findings are suspicious for ?? sigmoid colitis. Typically, diverticulitis presents with focal ?? inflammatory changes. The diffuse inflammatory changes of the sigmoid ?? colon could represent multifocal uncomplicated diverticulitis or ?? colitis of the sigmoid colon on related to diverticulitis. No evidence ?? of intestinal perforation. No free intraperitoneal fluid or gas ?? collections. ? *Status post cholecystectomy. ? Electronically signed by: ??Raymundo Moffett MD ??02/21/2024 12:52 AM EST RP ? Dictated By: ?Raymundo Moffett MD ? Signed By: ?<Electronically signed by Raymundo Moffett MD in OV> ? 02/21/24 0052 ? DD/ 3625 ? TD/TT: 02/20/24 4515 ? Operating Room Manager: EF ? Procedure Note Donotuseinterpreter, Image - 02/21/[address] [address] [address] Scan Report Signed Patient: Vikki Willis JMR#: [id number] : 1Acct:[id number] Age/Sex: 63 / FADM Date: 02/20/24 Loc: HO.ED Attending Dr: Ordering Physician: Kenyon Montgomery MD Date of Service: 02/20/24 Procedure(s): CT abdomen pelvis w IV con Accession Number(s): [id number] cc: [facility]GE NP; Kenyon Montgomery MD EXAMINATION: CT ABDOMEN AND PELVIS WITH CONTRAST CLINICAL INFORMATION: Abdominal pain COMPARISON: CT abdomen and pelvis 02/03/2024 TECHNIQUE: Multidetector volumetric images were obtained from the superior aspect of the liver through the pubic symphysis following administration 85 mL of Omnipaque 350 intravenous contrast. Sagittal and coronal reformatted images were obtained on the technologist's workstation. Oral contrast: No This CT examination was performed using dose optimization techniques as appropriate, variously including the following: *Automated exposure control *Adjustment of mA and/or kV according to patient size (this includes techniques or standardized protocols for targeted exams where dose is matched to indication/reason for exam; i.e. extremities or head) *Use of iterative reconstruction technique DLP: 394 mGy-cm FINDINGS: LUNG BASES: Mild posterior dependent atelectasis of the left lung base. LIVER, GALLBLADDER, AND BILIARY TREE: The liver is normal in size, shape, and attenuation. No focal hepatic lesion or biliary ductal dilatation is present. Status post cholecystectomy. Mild chronic postcholecystectomy ectasia of the common bile duct and intrahepatic biliary ducts stable compared with 02/03/2024. PANCREAS: Unremarkable. SPLEEN: Single subcentimeter rounded low density focus (series 3 image 22) which is benign in appearance and on the basis of this examination warrants no additional imaging follow-up. ADRENAL GLANDS: Unremarkable. KIDNEYS AND URETERS: 1.6 cm rounded low density focus inferior pole left kidney likely representing a benign, simple cyst 14 no additional imaging follow-up on the basis of this exam. No hydronephrosis. No perinephric inflammatory changes. BLADDER: Unremarkable. GASTROINTESTINAL TRACT: Moderate sigmoid diverticulosis. Concentric contiguous mural thickening of the middle and distal segments of the sigmoid colon similar to findings present 02/03/2024. No focal inflammatory changes of the adjacent sigmoid mesentery. No free intraperitoneal fluid or gas collections noted. No intestinal dilatation visualized. Normal appearance of the terminal ileum. The appendix is not visualized no free intraperitoneal fluid or gas collections identified. Normal appearance of the stomach and duodenum. ABDOMINAL WALL: Umbilical hernia containing fat without inflammatory changes measuring 1 cm. LYMPH NODES: Normal. VASCULAR: Diffuse calcific and noncalcific atherosclerosis PELVIC VISCERA: Normal appearance of the uterus aside from mild uterine atrophy. No adnexal lesions. OSSEOUS STRUCTURES: No suspicious skeletal lesions. CT/CT abdomen pelvis w IV con IMPRESSION: *Moderate concentric contiguous mural inflammatory changes of the middle and distal portions of the sigmoid colon. Similar findings were present on the 02/03/2024 examination. Additionally, moderate diffuse sigmoid diverticulosis is present. Overall, findings are suspicious for sigmoid colitis. Typically, diverticulitis presents with focal inflammatory changes. The diffuse inflammatory changes of the sigmoid colon could represent multifocal uncomplicated diverticulitis or colitis of the sigmoid colon on related to diverticulitis. No evidence of intestinal perforation. No free intraperitoneal fluid or gas collections. *Status post cholecystectomy. Electronically signed by: Raymundo Moffett MD 02/21/2024 12:52 AM EST Dictated By: Raymundo Moffett MD Signed By: <Electronically signed by Raymundo Moffett MD in OV> 02/21/24 0052 DD/ TD/TT: 02/20/245 Operating Room Manager: AVE [facility] External Provider IMG CT PROCEDURES Final Result * (ABNORMAL) Urinalysis, Complete, with Reflex to Culture (02/20/2024 10:39 PM EST) Color Urine Yellow [facility] Appearance Urine Cloudy [facility] PH 6.0 5.0 - 9.0 [facility] Glucose Urine UA Negative Negative mg/dL [facility] Urine Blood Large (3+)(A) Negative [facility] Specific Bowlegs - Urine 1.010 1.005 - 1.025 [facility] Urine Protein Trace Neg-Trace mg/dL [facility] Urine Ketones Negative Negative mg/dL [facility] Nitrite Urine Negative Negative [facility] Leukocyte Esterase Urine Large (3+)(A) Negative [facility] RBC Urine 6-10(A) 0 - 2 /HPF [facility] Urine WBC >50(A) 0 - 5 /HPF [facility] Urine Squamous Epithelial Cell 6-10 0 - 2 /HPF [facility] Urine Bacteria 1+ None Seen [facility] Hyaline Casts, Urine 0-2 0 - 2 /LPF [facility] 02/20/2024 10:3 9 PM EST 02/20/2024 10:41 PM EST Narrative [facility] - 02/20/2024 10:48 PM EST [id number], [employer] us Generic External Data Provider LAB URINE ORDERAB LES Final Result Performing Organization Address [facility] de Phone Number [facility] [address] [place] [phone] * (ABNORMAL) Potassium (02/20/2024 8:58 PM EST) Potassium 2.0(LL) 3.3 - 5.1 mmol/L [facility] Comment:Critical value for t est(K): Results called to and readback by: FITO Person calling: MAT Date: 02/20/24Time: 2111 02/20/2024 8:58 PM EST 02/20/2024 8:59 PM EST us Generic External Data Provider LAB BLOOD ORDERAB LES Final Result Performing Organization Address City/[facility] Co de Phone Number [facility] [address] [place] [phone] * Partial Thromboplastin Time, Activated (APTT) (02/01/2024 7:47 PM EST) Partial Thromboplastin Time 27.1 26.0 - 36.8 SEC [facility] Comment:For information rega rding the monitoring of direct thrombininhibitors, please refer to Pharmacy. 02/01/2024 7:47 PM EST 02/01/2024 7:50 PM EST us Generic External Data Provider LAB BLOOD ORDERAB LES Final Result Performing Organization Address [facility] Phone Number [facility] [address] [place] [phone] * Prothrombin Time-INR (02/01/2024 7:47 PM EST) Prothrombin Time 11.6 10.9 - 12.4 SEC [facility] INTERNATIONAL NORM RATIO 1.0 0.9 - 1.1 [facility] Comment:INTERNATIONAL NORMAL IZED RATIO (INR) REFERENCE RANGES Reference RangeFor patients not on anticoagulant therapy: 0.9 - 1.1INR ranges for oral anticoagulanttherapy:For prevention and treatment of venous thrombosis and pulmonary embolism: 2.0 - 3.0For acute myocardial infarction with aspirin therapy: 2.0 - 3.0For acute myocardial infarction without aspirin therapy: 3.0 - 4.0For patients with mechanical prosthetic heart valves: 2.5 - 3.5 02/01/2024 7:47 PM EST 02/01/2024 7:50 PM EST us Generic External Data Provider LAB BLOOD ORDERAB LES Final Result Performing Organization Address [facility] de Phone Number [facility] [address] [place] [phone] * XR KUB and Upright 2 Views (02/01/2024 7:24 PM EST) Anatomical Region Laterality Modality Radiographic Steffi ging 02/01/2024 7:24 PM EST Narrative 02/01/2024 9:51 PM EST ? [facility] ?[address] ?[place] [address] ?XRay Report ? Signed ? Patient: Washburne,Vikki J ?MR#: [id number] ?? [id number] ? : 1960 ?Acct:[id number] ? Age/Sex: 63 / F ?ADM Date: 02/01/24 ? Loc: HO.ED ? Attending Dr: ? Ordering Physician: Merrick Hennessy ?? Date of Service: 02/01/24 ?? Procedure(s): XR KUB ?? Accession Number(s): [id number] ? cc: Merrick Hennessy; BR[facility] EDGE NP ? EXAMINATION: ?? XR ABDOMEN KUB ? CLINICAL INDICATION: ?? Constipation. ? COMPARISON: ?? CT abdomen/pelvis 01/08/2024. ? TECHNIQUE: ?? AP view of the abdomen. ? FINDINGS: ?? Nonspecific prominence of loops of the small bowel in the left abdomen ?? measuring up to 3.5 cm in diameter. ? Suggestion of colonic wall thickening for example as visualized in the ?? right upper quadrant with subjective thumbprinting. ? Right upper quadrant surgical clips. No acute osseous findings. Lung ?? bases are clear. ? XR/XR KUB ?? IMPRESSION: ?? Nonspecific prominent loops of small bowel in the left abdomen that ?? could be related with ileus or early obstruction. Equivocal colonic ?? wall thickening. Recommend further characterization with CT ?? abdomen/pelvis. ? Electronically signed by: ??Desiree Garcia MD ??02/01/2024 09:48 PM EST RP ? Dictated By: ?Desiree Garcia ? Signed By: ?<Electronically signed by Desiree Garcia in OV> ?02/01/242147 ? DD/ 23 ? TD/TT: 02/01/241958 ? Operating Room Manager: ? Procedure Note Ruchi Holder - 02/01/[address] [place] [address] XRay Report Signed Patient: Vikki Willis JMR#: [id number] : 1Acct:[id number] Age/Sex: 63 / FADM Date: 02/01/24 Loc: HO.ED Attending Dr: Ordering Physician: Merrick Hennessy Date of Service: 02/01/24 Procedure(s): XR KUB Accession Number(s): [id number] cc: Merrick Hennessy; [facility] EDGE NP EXAMINATION: XR ABDOMEN KUB CLINICAL INDICATION: Constipation. COMPARISON: CT abdomen/pelvis 01/08/2024. TECHNIQUE: AP view of the abdomen. FINDINGS: Nonspecific prominence of loops of the small bowel in the left abdomen measuring up to 3.5 cm in diameter. Suggestion of colonic wall thickening for example as visualized in the right upper quadrant with subjective thumbprinting. Right upper quadrant surgical clips. No acute osseous findings. Lung bases are clear. XR/XR KUB IMPRESSION: Nonspecific prominent loops of small bowel in the left abdomen that could be related with ileus or early obstruction. Equivocal colonic wall thickening. Recommend further characterization with CT abdomen/pelvis. Electronically signed by: Desiree Garcia MD 02/01/2024 09:48 PM [facility] Dictated By: Desiree Garcia Signed By: <Electronically signed by Desiree Garcia in OV> 02/01/242147 DD/ 23 TD/TT: 02/01/241958 Operating Room Manager: [facility] External Provider IMG XR PROCEDURES Edited Result - Final * Hm Colonoscopy (09/05/2021 11:04 AM EDT) Historical Provider HEALTH MAINTENANCE Final Result * 3D DIGITAL UBALDO SCR MAMMO 1 (06/07/2019 12:30 PM EDT) Anatomical Region Laterality Modality Breast Bilateral Mammography 06/07/2019 12:3 0 PM EDT Narrative 06/07/2019 12:31 PM EDT Refer to the Notes tab for result details [facility] Procedure: 3D DIGITAL UBALDO SCR MAMMO 1 Procedure Note Provider, MD Rubina - 06/21/2022 Refer to the Notes tab for result details [facility] Procedure: 3D DIGITAL UBALDO SCR MAMMO 1 Inez Dewitt NP IMG BI PROCEDURES Final Result * HPV mRNA E6/E7 (10/30/2016 3:00 PM EDT) HPV mRNA E6/E7 Not Detected NOT DETECTED [facility] Comment: This test was performed using the APTIMA(R) HPV Assay ([employer] This assay detects E6/E7 viral messenger RNA (mRNA) from 14 high-risk HPV types (16,18,31,33,35,39,45,51, 52,56,58,59,66,68). For additional information please refer to: http://education.UpSpring/faq/TSS499w3 (This link is being provided for informational/ educational purposes only.) Test Performed by [facility] [employer] [facility], [address] [place] [id number] Elmo Foreman M.D., Ph.D., Director of Laboratories , [facility] [id number] Please note: ??Effective 12/10/2015, HPV testing will be performed using [employer]'s APTIMA test which targets mRNA. Detecting mRNA instead of DNA, as in older methods, offers significant improvements in specificity. 10/30/2016 3:00 PM EDT Inez Dewitt NP HISTORICAL/NON ORDERABLE LABS Fi nal Result [facility] [address] from Last 3 Months or Most Recently Relevant to Health Maintenance Insurance [facility] Care Teams Compensation Supervisor Relationship Specialty Start Date End Date [facility] Edge ANP [address] [place] [phone] PCP - General Family Medicine 11/16/20
--- OUTSIDE RECORDS SUMMARY | 2024-04-22 16:28 | XMS_ITS | Encounter Summary ---
Author Organization [employer] Address [address] [facility] [address] [place] [address] Care Team Providers Care Floral Decorator Name Role Phone April Dave Primary Care Provider [phone] Encounter Details Date Type Department Care Team ([facility] st Contact Info) Description 04/12/2024 Orders Only [facility] [address] [place] [address] April Dave ANP [address] [place] [address] Social History Tobacco Use Types Packs/Day Years [...] AM EDT documented as of this encounter Progress Notes * AARON Linares - 04/12/2024 3:47 PM EST Received request for insulin needles. Patient should not be taking insulin (lantus) as her A1c is very much at goal - please out reach to clarify and confirm. I will confirm w/ pharmacy not to dispense. Lab Results Component Value Date HGBA1C 5.3 12/31/2023 HGBA1C 6.1 (A) 10/06/2023 HGBA1C 5.2 05/05/2023 documented in this encounter Plan of Treatment Not on file documented as of this encounter Visit Diagnoses Not on filedocumented in this encounter Additional Health Concerns Assessment Noted Time PHQ-9 Depression Total Score: 1 12/31/19 24 10:03 AM EDT documented as of this encounter Care Teams Floral Decorator Relationship Specialty Start Date End Date April Dave ANP [address] [place] [phone] PCP - General Family Medicine 11/16/20 documented as of this encounter
--- OUTSIDE RECORDS SUMMARY | 2024-04-22 16:28 | XMS_ITS | Encounter Summary ---
Author Organization [employer] Address [address] [facility] [address] [place] [address] Care Team Providers Care Mop Handle Assembler Name Role Phone April Dave Primary Care Provider [phone] Reason for Visit * Reason Onset Date Comments chart prep 04/22/2024 Encounter Details Date Type Department Care Team ([facility] st Contact Info) Description 04/22/2024 Telephone [facility] MEDICINE [address] [place] [address] Miesha Zelaya MA chart prep Social History Tobacco Use Types Packs/Day Years [...] encounter Miscellaneous Notes * Telephone Encounter - Miesha Zelaya MA - 04/22/2024 10:06 AM EST Chart Prep Labs: done Images: ordered 03/21/25 Vaccines due: yes Referrals: no showed on Screenings: pap smear , Foot Exam Overdue care gaps: [employer] documented in this encounter Plan of Treatment Not on file documented as of this encounter Visit Diagnoses Not on filedocumented in this encounter Additional Health Concerns Assessment Noted Time PHQ-9 Depression Total Score: 1 12/31/19 24 10:03 AM EDT documented as of this encounter Care Teams Mop Handle Assembler Relationship Specialty Start Date End Date April Dave ANP [address] [place] [id number] PCP - General Family Medicine 11/16/20 documented as of this encounter
--- OUTSIDE RECORDS SUMMARY | 2024-04-22 16:28 | XMS_ITS | Encounter Summary ---
Author Organization [employer] Address [address] [facility] [address] [place] [address] Care Team Providers Care Parts Advisor Name Role Phone April Dave Primary Care Provider Reason for Visit * Reason Comments Med Refill Encounter Details Date Type Department Care Team ([facility] st Contact Info) Description 06/09/2023 Refill [facility] MEDICINE [address] [place] [address] April Dave ANP [address] [place] [address] Diabetic nephropathy associated with type 2 diabetes mellitus (CMS/[facility]) Social History Tobacco Use Types Packs/Day Years [...] past 12 months, has t he electric, [employer], oil or water [employer] threatened to shut off services in your home? No 01/12/2023 Depression Answer Date Recorded Patient Health Questionnaire-2 Score 0 10/02/2022 Comments Unknown Sex and Gender Information Value Date Recorded Sex Assigned at Female 01/27/2022 10:19 AM EDT Legal Sex Female 10:19 AM EDT Gender Identity Female 01/27/2022 10:19 AM EDT Sexual Orientation Choose not to disclose 2021 10:19 AM EDT documented as of this encounter Miscellaneous Notes * Telephone Encounter - Mayra Way RN - 06/12/2023 2:58 PM EDT TC placed to patient regarding message below. Patient states that she is taking iron supplement daily but only taking it with water. Advised to take it with some form of vitamin C (a supplement, OJ, lemon juice squeezed into her water) and patient agreed. Patient states that it would be easier for her if this medication was added to her med box and was advised that we can call the pharmacy and have them do this for her for next time. Patient states she sees Temitope Rico at [facility] and has a follow-up on 06/30/23. She is not sure whether/when a colonoscopy will be recommended. 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 She states that she would like a referral to hematology to investigate causes of chronic anemia. Patient also states she has lost weight recently without trying. She states she got a new scale andis now weighing 151 lbs. She states she previously was 157 lbs. Office visit note from 05/05/23 showsa weight of 154 lbs. She states she has not tried to eat less, but she is eating smaller portions and walking more, and her blood sugars have been good, but she doesn't feel she has decreased food int hood at all. Patient requests f/u visit with PCP for concerns over recent weight loss despite eatingnormally. Scheduled for 07/01/23 @ 3:30pm and advised to call us for sooner appointment if weight loss continues and/or other concerns arise. TC placed to [facility] pharmacy and they stated they were just going to call patient to see if she would like new meds added to her med box. They can ask her to also bring in her 90-day supply of iron and they can add it to the boxes for her. Asked them to reiterate to her to take some form of vitamin C when she takes iron and they said they would. Routing note to PCP to review and advise regarding all above, including GI and hem. ----- Message from AARON Linares sent at 06/12/2023 9:23 AM EDT ----- Call to pt to review labs - no answer, LVM to call clinic. pt w/ chronic anemia but persists. Need to confirm that pt is taking iron supplement correctly (daily, w/ Vit C or OJ). It is not in her Medbox (it is in vials per pharmacy) but pharmacy can put it in box if she wants. She needs to see GI for colonoscopy if she has not recently. I will send folate to supplement as her folic acid is low, but if pt IS taking iron, I recommend she see hematology for evaluation for additional w/u and tx. Her anemia is likely contributing to her restless legs, but can send ropinirole to re-start as well. Please let me know if she agrees to go to appts for GI and heme and I will place referrals. documented in this encounter Plan of Treatment Not on file documented as of this encounter Visit Diagnoses Diagnosis Diabetic nephropathy associated with type 2 diabetes mellitus (CMS/HCC) documented in this encounter Care Teams Parts Advisor Relationship Specialty Start Date End Date April Dave ANP [address] [place] [address] PCP - General Family Medicine 11/16/20 documented as of this encounter
--- OUTSIDE RECORDS SUMMARY | 2024-04-22 16:28 | XMS_ITS | Encounter Summary ---
Author Organization [employer] Address [address] [place] [address] [address] [place] [address] Care Team Providers Care Scrap Hoist Operator Name Role Phone April Dave Primary Care Provider [phone] Encounter Details Date Type Department Care Team ([facility] st Contact Info) Description 02/28/2022 Orders Only [facility] [address] [place] [address] Emily Pitts, RN [address] [place] [address] Social History Tobacco Use Types Packs/Day Years Used Date Smoking Tobacco: Never Assessed Comments Unknown Sex and Gender Information Value Date Recorded Sex Assigned at Female 01/27/2022 10:19 AM EDT Legal Sex Female 10:19 AM EDT Gender Identity Female 01/27/2022 10:19 AM EDT Sexual Orientation Choose not to disclose 2021 10:19 AM EDT documented as of this encounter Plan of Treatment Not on file documented as of this encounter Visit Diagnoses Not on filedocumented in this encounter Care Teams Scrap Hoist Operator Relationship Specialty Start Date End Date April Dave ANP [address] [place] [address] PCP - General Family Medicine 11/16/20 documented as of this encounter
--- OUTSIDE RECORDS SUMMARY | 2024-04-22 16:28 | XMS_ITS | Clinical Summary ---
Author Organization [facility] Address [address] [place] [address] [address] [place]NDONZITA [phone] Phone Care Team Providers Care Hygiene Teacher Name Role Phone Inez Dewitt NP Primary Care Provider [phone] Allergies Active Allergy Reactions Criticality Noted Date Comments Mohamud Inhibitors Other (see comments) 03/28/2010 Albuterol Shortness of breath High 05/15/2022 Not all albuterol Hydrocodone 03/28/2010 Tramadol Other (see comments) 03/25/2022 Per note in preferred pharmacy (2019), patient reported tramadol use to seizure Hydrocodone-Acetaminop hen Other (see comments) 01/28/2021 Medications topiramate (TOPAMAX) 100 MG tablet TAKE 1 TABLET BY MOUTH TWICE DAILY IN THE MORNING AND AT BEDTIME 2 Active Januvia 100 MG tablet Take 100 mg by mouth 2 Active sertraline (ZOLOFT) 50 MG tablet Take 50 mg by mouth 2 Active OXcarbazepine (TRILEPTAL) 150 MG tablet TAKE 1 TABLET BY MOUTH TWICE DAILY IN THE MORNING AND AT BEDTIME 2 Active omeprazole (PriLOSEC) [address] capsule Take 20 mg by mouth 2 Active olmesartan (BENICAR) 40 MG tablet Take 40 mg by mouth 2 Active UltiCare Mini Pen [place] 31G X 6 MM misc USE FOUR TIMES DAILY WITH INSULIN 2 Active Lantus SoloStar 100 UNIT/ML injection INJECT 16 UNITS SUBCUTANEOUSLY ONCE DAILY AT BEDTIME 2 Active NovoLOG FLEXPEN 100 UNIT/ML injection INJECT 6 UNITS SUBCUTANEOUSLY THREE TIMES DAILY WITH BREAKFAST, LUNCH, AND SUPPER 2 Active imipramine (TOFRANIL) 25 MG tablet Take 50 mg by mouth every night 2 Active Flovent HFA 110 MCG/ACT inhaler INHALE 2 PUFFS TWICE DAILY. RINSE MOUTH AFTER USING. 2 Active FeroSul 325 (65 Fe) MG tablet TAKE 1 TABLET BY MOUTH EVERY MORNING (WITH VITAMIN C) 2 Active Docusate Sodium (DSS) 100 MG capsule Take 100 mg by mouth 1 Active D3 Super Strength 50 MCG (2000 UT) capsule Take 1 capsule by mouth 2 Active cetirizine (ZyrTEC) 10 MG tablet Take 10 mg by mouth 2 Active atorvastatin (LIPITOR) 40 MG tablet Take 40 mg by mouth at bed time 2 Active Calcium Carbonate-Rosalva min D3 600-400 MG-UNIT tablet Take 1 tablet by mouth every morning and evening 2 Active Aspirin Low Dose 81 MG EC tablet Take 81 mg by mouth at bed time 2 Active amLODIPine (NORVASC) 2.5 MG tablet Take 2.5 mg by mouth at bed time 2 Active furosemide (LASIX) 40 MG tablet TAKE 1 AND 1/2 TABLETS BY MOUTH IN THE MORNING 135 tablet 4 Active Active Problems Problem Noted Date Diagnosed Date Pain of knee region 12/03/2022 Overview (06/23/2023): Requests orthopedics referral. No swelling on exam today. Light cigarette smoker 12/03/2022 Gastroesophageal reflux disease 03/25/2022 Iron deficiency anemia 03/25/2022 Dissociative convulsion 12/24/2021 Stage 3a chronic kidney disease 12/24/2021 Renal osteodystrophy 12/24/2021 Renal disorder due to type 2 diabetes mellitus 1 03/30/2020 Chronic kidney disease stage 3 01/28/2021 Benign hypertensive renal disease 01/28/2021 Dysthymia 08/06/2020 Transient cerebral ischemia 08/25/2017 Peripheral neuropathic pain 05/05/2017 Allergic rhinitis 01/05/2015 Constipation 01/05/2015 Degenerative joint disease involving multiple mike ints 01/05/2015 Hyperlipidemia 01/05/2015 Moderate persistent asthma 01/05/2015 Restless legs 01/05/2015 Arthritis 02/23/2012 Asthma 02/23/2012 Essential hypertension 02/23/2012 Heart valve disorder 02/23/2012 Overview (06/27/2022): Aortic Stenosis and Aortic Regurgitation Migraine 02/23/2012 Obese 02/23/2012 Obstructive sleep apnea syndrome 02/23/2012 Encounters Date Type Department Care Team Description 02/08/2024 Refill [facility] [address] [place] [address] Alan Nash MD from Last 3 Months Immunizations Name Administration Dates Next Due Hepatitis A 08/17/2017,04/11/2016 Hepatitis B 08/17/2017, 7,09/24/2016,07/21 Influenza (IM) Preservative Free 12/29/2015,12/29 Influenza, Quadrivalent, Pre servative Free 05/15/2022,03/04/2021,02/07/2020,12/23,12/16/2017,02/03/2017,07/10/2014 Influenza, Quadrivalent, Wit h Preservative 01/20/2018,12/13/2015,01/05/2015 Influenza, Unspecified 12/29/2015,2012,12/01/2012,11/23,01/09/2011 Moderna SARS-COV-2 05/15/2022,07/06/2020, 021 Pneumococcal Conjugate 13-Valent 11/07/2014 Pneumococcal Polysaccharide 12/09/2011, 2 Shingrix 03/08/2019,12/29/2018 Td 12/08/2006 Tdap 10/06/2011 Family History Medical History Relation Comments Diabetes Child 1 Hypertension Child 2 Hypertension Sibling 1 Cancer Sibling 2 Relation Status Comments Child 1 Child 2 Father Mother Sibling 1 Sibling 2 Social History Tobacco Use Types Packs/Day Years Used Date Smoking Tobacco: Every Day Cigarettes Tobacco Cessation:Ready to Q uit: Not Asked; Counseling Given: Not Answered Alcohol Use Standard Drinks/Week Comments No 0 (1 standard drink = 0.6 oz pur e alcohol) Comments Unknown Sex and Gender Information Value Date Recorded Sex Assigned at Not on file Legal Sex Female 5:06 PM EST Gender Identity Not on file Sexual Orientation Not on file Last Filed Vital Signs Vital Sign Reading Time Taken Comments Blood Pressure 124/60 09/25/2022 4:43 PM EDT Pulse 64 09/25/2022 4:43 PM EDT Temperature - - Respiratory Rate - - Oxygen Saturation 96% 09/25/2022 4:43 PM EDT Inhaled Oxygen Concentration - - Weight 98 kg (216 lb) 09/25/2022 4:43 PM EDT Height 147.3 cm (4' 10 ) 09/25/2022 4:43 PM EDT Body Mass Index 45.14 09/25/2022 4:43 PM EDT Plan of Treatment Health Maintenance Due Date Last Done Comments Breast Cancer Screening 1960 Colorectal Cancer Screening: Annual FOBT 2009 Colorectal Cancer Screening: Colonoscopy 2009 Colorectal Cancer Screening: Sigmoidoscopy 2009 Diabetes: Ophthalmology Exam 04/29/2020 Diabetes: Pedal Pulse Checked 04/29/2020 Diabetes: Sensory Foot Exam 04/29/2020 Diabetes: Visual Foot Exam 04/29/2020 Influenza Vaccine (#1) 2023 , 03/04/2021, 02/07/2020, Additional history exists Diabetes: Hemoglobin A1C 04/01/2024 12/31/2023, 02/0 08/2023 Hepatitis B Vaccine Aged Out 08/17/2017, 02/03/2017, 09/24/2016, Additional history exists No longer eligible based on patient's age to complete this topic Pneumococcal Vaccine: Pediatrics (0 to 5 Years) and At-Risk Patients (6 to 64 Years) Completed 07/01/2023, 11/07/2014, 07/27/2014, Additional history exists Insurance [facility] ([id number]) [facility] ([id number]) Care Teams Hygiene Teacher Relationship Specialty Start Date End Date Inez Dewitt NP [address] [place] [id number] PCP - General 04/09/20
--- OUTSIDE RECORDS SUMMARY | 2024-04-22 16:28 | XMS_ITS | Encounter Summary ---
Author Organization [employer] Address [address] [facility] [address] [place] [address] Care Team Providers Care Scrap Drop Engineer Name Role Phone April Dave Primary Care Provider Encounter Details Date Type Department Care Team ([facility] st Contact Info) Description 04/11/2024 Refill [facility] MEDICINE [address] [place] [address] April Dave ANP [address] [place] [address] Seizure disorder (CMS/HCC) Social History Tobacco Use Types Packs/Day Years [...] as of this encounter Visit Diagnoses Diagnosis Seizure disorder (CMS/HCC) Unspecified epilepsy without mention of intractable epilepsy documented in this encounter Additional Health Concerns Assessment Noted Time PHQ-9 Depression Total Score: 1 12/31/19 24 10:03 AM EDT documented as of this encounter Care Teams Scrap Drop Engineer Relationship Specialty Start Date End Date April Dave ANP [address] [place] [id number] PCP - General Family Medicine 11/16/20 documented as of this encounter
--- OUTSIDE RECORDS SUMMARY | 2024-04-22 16:28 | XMS_ITS | Encounter Summary ---
Author Organization [employer] Address [address] [facility] 7t [place] [address] Care Team Providers Care Sound Engineering Technician Name Role Phone April Dave Primary Care Provider [phone] Reason for Visit * Reason Onset Date Comments Med Refill 04/12/2024 Encounter Details Date Type Department Care Team (Late st Contact Info) Description 04/12/2024 Refill [facility] [address] [place], [place] [phone] April Dave ANP [address] [facility] [place] [address] Social History Tobacco Use Types Packs/Day Years [...] encounter Miscellaneous Notes * Telephone Encounter - AARON Linares - 04/12/2024 3:47 PM EST Pt should not be taking insulin. Will ask team to outreach. documented in this encounter Plan of Treatment Not on file documented as of this encounter Visit Diagnoses Not on filedocumented in this encounter Additional Health Concerns Assessment Noted Time PHQ-9 Depression Total Score: 1 12/31/19 24 10:03 AM EDT documented as of this encounter Care Teams Sound Engineering Technician Relationship Specialty Start Date End Date April Dave ANP [address] [place] [id number] PCP - General Family Medicine 11/16/20 documented as of this encounter
--- OUTSIDE RECORDS SUMMARY | 2024-04-22 16:28 | XMS_ITS ---
Author Organization [facility] Address Unknown Allergies, Adverse Reactions, Alerts Substance Reaction Status Noted Date Resolved Date Hydrocodone active 10/20/2013 Encounters Encounter Performer Performer Role Encounter Diagnoses Location Date Discharge - Discharged to home or self care - [facility] 10/20/2013 12:53 am EDT - 10/27/2013 10:00 am EDT Discharge - Discharged to home or self care - Home(5) - Other [facility] 10/31/2013 07:15 pm EDT - 11/16/2013 03:37 pm EDT Immunizations Vaccine Date Influenza Pneumovax Dose 1 Social History
--- OUTSIDE RECORDS SUMMARY | 2024-04-22 16:28 | XMS_ITS | Encounter Summary ---
Author Organization [employer] Address [address] [facility] [address] [place] [address] Care Team Providers Care Sweatband Separator Name Role Phone April Dave Primary Care Provider [phone] Reason for Visit * Reason Onset Date Comments Medication Question 04/13/2024 Encounter Details Date Type Department Care Team ([facility] st Contact Info) Description 04/13/2024 Telephone [facility] MEDICINE [address] [place] [address] Aicha Abebe RN Medication Question Social History Tobacco Use Types Packs/Day Years [...] encounter Miscellaneous Notes * Telephone Encounter - Aicha Abebe RN - 04/13/2024 11:11 AM EST Telephone call to pt regarding below message, pt confirmed that she knows not to take Lantus, narrative writer reminded her of this and explained that the reason is that her diabetes is well controlled at present. Pt stated she still has some insulin but is not taking it. No further questions at this time. -- Received request for insulin needles. Patient should not be taking insulin (lantus) as her A1c is very much at goal - please out reach to clarify and confirm. I will confirm w/ pharmacy not to dispense. documented in this encounter Plan of Treatment Not on file documented as of this encounter Visit Diagnoses Not on filedocumented in this encounter Additional Health Concerns Assessment Noted Time PHQ-9 Depression Total Score: 1 12/31/19 24 10:03 AM EDT documented as of this encounter Care Teams Sweatband Separator Relationship Specialty Start Date End Date April Dave ANP [address] [place] [address] PCP - General Family Medicine 11/16/20 documented as of this encounter
--- OUTSIDE RECORDS SUMMARY | 2024-04-22 16:28 | XMS_ITS | Encounter Summary ---
Author Organization [employer] Address [address] [facility] [address] [address] Care Team Providers Care High Tension Tester Name Role Phone April Dave Primary Care Provider [phone] Reason for Visit * Reason Onset Date Comments FYI 03/11/2023 Encounter Details Date Type Department Care Team ([facility] st Contact Info) Description 03/11/2023 Telephone [facility] MEDICINE [address] [place] [address] April Dave ANP [address] [place] [address] FYI Social History Tobacco Use Types Packs/Day Years [...] encounter Miscellaneous Notes * Telephone Encounter - Abi Mirza - 03/11/2023 1:30 PM EST Tc from [place] [facility] with [facility] pulmonology advising PCP, pt preferred [facility] and is booked for 04/29 @ 2:45 PM. documented in this encounter Plan of Treatment Not on file documented as of this encounter Visit Diagnoses Not on filedocumented in this encounter Care Teams High Tension Tester Relationship Specialty Start Date End Date April Dave ANP [address] [place] [address] PCP - General Family Medicine 11/16/20 documented as of this encounter
--- OUTSIDE RECORDS SUMMARY | 2024-04-22 16:28 | XMS_ITS | Encounter Summary ---
Author Organization [employer] Address [address] [facility] [address]t [place] [address] Care Team Providers Care Bilingual Administrative Assistant Name Role Phone April Dave Primary Care Provider Encounter Details Date Type Department Care Team (Latest Contact Info) Description 04/22/2024 Travel Social History Tobacco Use Types Packs/Day Years [...] documented as of this encounter Care Teams Bilingual Administrative Assistant Relationship Specialty Start Date End Date April Dave ANP [address] [place] [address] PCP - General Family Medicine 11/16/20 documented as of this encounter
--- OUTSIDE RECORDS SUMMARY | 2024-04-22 16:28 | XMS_ITS | Encounter Summary ---
Author Organization [employer] Address [address] [facility] [address] [place] [address] Care Team Providers Care Injection Moulding Machine Operator Name Role Phone April Dave Primary Care Provider [phone] Encounter Details Date Type Department Care Team ([facility] st Contact Info) Description 03/28/2024 Telephone [facility] MEDICINE [address] [place], [place] [phone] April Dave ANP [address] [place] [address] Social History Tobacco Use Types Packs/Day Years [...] documented as of this encounter Care Teams Injection Moulding Machine Operator Relationship Specialty Start Date End Date April Dave ANP [address] [place] [id number] PCP - General Family Medicine 11/16/20 documented as of this encounter
--- OUTSIDE RECORDS SUMMARY | 2024-04-22 16:28 | XMS_ITS | Encounter Summary ---
Author Organization [employer] Address [address] [facility] 7t [place] [address] Care Team Providers Care Tooth Clerk Name Role Phone April Dave Primary Care Provider [phone] Encounter Details Date Type Department Care Team (Late st Contact Info) Description 10/09/[address] [facility] MEDICINE [address] [place] [address] Provider, MD Rubina Social History Tobacco Use Types Packs/Day Years [...] on file documented as of this encounter Procedures Procedure Name Priority Date/Time Associated Diagnosis Comments HM COLONOSCOPY Routine 09/05/2021 11:04 AM EDT documented in this encounter Results * Hm Colonoscopy (09/05/2021 11:04 AM EDT) us Historical Provider HEALTH MAINTENANCE Final Result documented in this encounter Visit Diagnoses Not on filedocumented in this encounter Care Teams Tooth Clerk Relationship Specialty Start Date End Date April Dave ANP [address] [place] [address] PCP - General Family Medicine 11/16/20 documented as of this encounter
--- OUTSIDE RECORDS SUMMARY | 2024-04-22 16:28 | XMS_ITS | Encounter Summary ---
Author Organization [employer] Address [address] [place] [address] [address], [place] [address] Care Team Providers Care Lead Cytogenetic Technologist Name Role Phone Bradford Edge Primary Care Provider [phone] Reason for Visit * Reason Comments Diabetes Follow-up Encounter Details Date Type Department Care Team ([facility] st Contact Info) Description 04/22/2024 2:15 PM EST Office Visit [facility] MEDICINE [address] [place] [address] Bradford Edge ANP 230 [place] [address] Diabetic nephropathy associated with type 2 diabetes mellitus (CMS/HCC) (Primary Dx); Mid back pain; Iron deficiency anemia, unspecified iron deficiency anemia type; Hypokalemia Social History Tobacco Use Types Packs/Day Years [...] AM EDT documented as of this encounter Last Filed Vital Signs Vital Sign Reading [...] oz) 04/22/2024 2:34 P M EST Height - - Body Mass Index 25.58 02/02/2024 5:33 PM EST documented in this encounter Plan of Treatment Scheduled Orders Name Type Priority Associated Diagnoses Orde r Schedule Hemoglobin and Hematocrit Lab Routine Iron deficiency anemia, unspecified iron deficiency anemia type Expected: 04/22/2024, Expires: 04/22/2025 Basic Metabolic Panel Lab Routine Hypokalemia Expected: 04/22/2024 (Approximate), Expires: 04/22/2025 documented as of this encounter Procedures Procedure [...] diabetes mellitus (CMS/HCC) documented in this encounter Results * XR Thoracic Spine 2 Views (04/22/2024 3:25 PM EST) Anatomical Region Laterality Modality Spine, T-spine Radiographic Steffi ging 04/22/2024 3:25 PM EST Narrative 04/22/2024 3:51 PM EST ?[facility] ?[address] ?[place] [address] ?XRay Report ? Signed ? Patient: Vikki Willis J ?MR#: [id number] ?? [id number] ? : 1960 ?Acct:[id number] ? Age/Sex: 64 / F ?ADM Date: 04/22/24 ? Loc: HO.HHCX ? Attending Dr: Bradford Edge NP ? Ordering Physician: BRADFORD EDGE NP ?? Date of Service: 04/22/24 ?? Procedure(s): XR thoracic spine 2V ?? Accession Number(s): [id number] ? cc: BRADFORD EDGE NP ? EXAMINATION: [...] DD/ 1525 ? TD/TT: 04/22/24 1538 ? Wrapper Stitcher: ? Procedure Note Donotuseinterpreter, Image - 04/22/[address] [address] XRay Report Signed Patient: Vikki Willis JMR#: [id number] : 1Acct:[id number] Age/Sex: 64 / FADM Date: 04/22/24 Loc: HO.HHCX Attending Dr: Bradford Edge FREIGHT BROKER AGENT Ordering Physician: BRADFORD EDGE NP Date of Service: 04/22/24 Procedure(s): XR thoracic spine 2V Accession Number(s): [id number] cc: BRADFORD EDGE NP EXAMINATION: XR THORACIC [...] by: Jose Grissom MD 04/22/2024 03:48 PM EST Dictated By: Jose Grissom MD Signed By: <Electronically signed by Jose Grissom MD in OV> 04/22/24 1548 DD/ 1525 TD/TT: 04/22/24 1538 Wrapper Stitcher: us Bradford Edge ANP IMG XR PROCEDURES Final Result * POCT HGB A1C (04/22/2024 3:06 PM EST) Hemoglobin A1C 5.2 4.0 - 6.0 % QC Media Lot # [id number] Lot# Expiration Date 026 Blood 04/22/2024 3:06 PM EST us Bradford Edge ANP POINT OF CARE TEST ENTER/EDIT OR DERABLES Final Result * POCT Glucose (04/22/2024 3:06 PM EST) Glucose Blood, POC 159 60 - 200 mg/dL QC Media Lot # [id number] Lot# Expiration Date Blood Capillary blood specimen / Unknown 04/22/2024 3:06 PM EST Bradford WALKER POINT OF CARE TEST ENTER/EDIT OR DERABLES Edited Result - Final documented in this encounter Visit Diagnoses Diagnosis Diabetic nephropathy associated with type 2 diabetes mellitus (CMS/[facility])- Primary Mid back pain Iron deficiency anemia, unspecified iron deficiency anemia type Hypokalemia Hypopotassemia documented in this encounter Additional Health Concerns Assessment Noted Time PHQ-9 Depression Total Score: 1 12/31/19 24 10:03 AM EDT documented as of this encounter Care Teams Lead Cytogenetic Technologist Relationship Specialty Start Date End Date Bradford Edge ANP [address] [place] [address] PCP - General Family Medicine 11/16/20 documented as of this encounter
--- OUTSIDE RECORDS SUMMARY | 2024-04-22 16:28 | XMS_ITS | Encounter Summary ---
Author Organization [employer] Address [address] [facility] [address] [address] Care Team Providers Care Partner Name Role Phone April Dave Primary Care Provider [phone] Reason for Visit * Reason Comments Med Refill Encounter Details Date Type Department Care Team ([facility] st Contact Info) Description 01/05/2023 Refill [facility] MEDICINE [address] [place] [address] April Dave ANP 230 [place] [address] Depressive disorder Social History Tobacco Use Types Packs/Day Years Used Date Smoking Tobacco: Every Day Cigarettes Smokeless Tobacco: Never Alcohol Use Standard Drinks/Week Comments Never 0 (1 standard drink = 0.6 oz pur e alcohol) PHQ-2 Answer Date Recorded Patient Health Questionnaire-2 Score 0 10/02/2022 Housing Stability Answer Date Recorded What is your housing situation today? I have kris arce 01/05/[address] you li ve. Do you have problems with any of the following? None of the above 01/05/2023 Food Insecurity Answer Date Recorded Within the past 12 months, y ou worried that your food would run out before you got money to buy more: Never True 01/05/2023 Within the past 12 months,th e food you bought just didn't last and you didn't have enough money to get more: Never True 11/2022 Transportation Answer Date Recorded In the past 12 months, has l ack of transportation kept you from medical appts, meetings, work or from getting things needed for daily living? No 01/05/2023 Utilities Answer Date Recorded In the past 12 months, has t he electric, gas, oil or water company threatened to shut off services in your home? No 01/05/2023 Depression Answer Date Recorded Patient Health Questionnaire-2 [...] as of this encounter Visit Diagnoses Diagnosis Depressive disorder Depressive disorder, not elsewhere classified documented in this encounter Care Teams Partner Relationship Specialty Start Date End Date April Dave ANP [address] [place] [address] PCP - General Family Medicine 11/16/20 documented as of this encounter
== END 2024-04-22 15:25 | disposition home or self-care (01) ==
LOC: HO.HHCX 15:24
PROVIDERS: Visit Provider Nurse Practitioner Primary Care
DX: M54.9 Dorsalgia, unspecified (principal)
CPT/HCPCS: 72070

== ENCOUNTER → 2024-04-22 15:25 | Outpatient (BNV) | payer OTHER, SELFPAY | PROVIDERS: Visit Provider Radiology Diagnostic Radiology | DX: M54.9 Dorsalgia, unspecified (principal) | CPT/HCPCS: 72070 ==

== ENCOUNTER 2024-05-17 10:04 | Outpatient (REF) | payer OTHER, SELFPAY ==
--- OUTSIDE RECORDS SUMMARY | 2024-05-17 10:58 | XMS_ITS | Encounter Summary ---
Author Organization [employer] Address 75 [facility] 7 [place] [address] Care Team Providers Care Physicist Light And Optics Name Role Phone April Dave Primary Care Provider [phone] Reason for Visit * Reason Comments Med Refill Encounter Details Date Type Department Care Team ([facility] st Contact Info) Description 06/09/2023 Refill [facility] MEDICINE 230 [place] [address] April Dave ANP 230 [place] [address] Diabetic nephropathy associated with type 2 diabetes mellitus (CMS/[facility]) Social History Tobacco Use Types Packs/Day Years [...] past 12 months, has t he electric, [place], oil or water Son[employer] threatened to shut off services in your [...] Patient states she sees Temitope Rico at [facility] and has a follow-up on 06/30/23. She is not sure whether/when a colonoscopy will be recommended. She states she will picker box operator folic acid supplement and ropinirole from [...] and/or other concerns arise. TC placed to [facility] pharmacy and they stated they were [...] documented in this encounter Plan of Treatment Upcoming Encounters Date Type Department Care Team (Late st Contact Info) Description 06/17/2024 9:00 AM EDT Office Visit [facility] MEDICINE 230 [place] [address] April Dave ANP 230 [place] [address] documented as of this encounter Visit Diagnoses Diagnosis Diabetic nephropathy associated with type 2 diabetes mellitus (CMS/HCC) documented in this encounter Care Teams Physicist Light And Optics Relationship Specialty Start Date End Date April Dave ANP 230 [place] [address] PCP - General Family Medicine 11/16/20 documented as of this encounter
--- OUTSIDE RECORDS SUMMARY | 2024-05-17 10:58 | XMS_ITS | Encounter Summary ---
Author Organization [employer] Address 75 [facility] 7[place] [address] Care Team Providers Care Submarine Cable Equipment Technician Name Role Phone April Dave Primary Care Provider [phone] Reason for Visit * Reason Onset Date Comments Appointment Request 05/02/2024 Referral 05/02/2024 Encounter Details Date Type Department Care Team ([facility] st Contact Info) Description 05/02/2024 Telephone [facility] MEDICINE 230 [place] [address] April Dave ANP 230 [place] [address] Appointment Request; Referral Social History Tobacco Use Types Packs/Day Years [...] Telephone Encounter - Miesha Zelaya MA - 05/03/2024 10:11 AM EST Spoke to pt ,states she has the num.but [facility] has said that they have not received ,I callled [facility] they have not gotten to it yet .pt is now aware. * Telephone Encounter - AARON Linares - 05/03/2024 9:29 AM EST Can you please give pt the phone number to larry padilla's office? Podiatry at [facility]. * Telephone Encounter - Reyes Luna - 05/02/2024 2:26 PM EST Tc from pt requesting for another appt for podiatry with [facility]illa because never received appt reminder for last appt. documented in this encounter Plan of Treatment Upcoming Encounters Date Type Department Care Team (Late st Contact Info) Description 06/17/2024 9:00 AM EDT Office Visit [facility] MEDICINE [address] [place] [address] April Dave ANP 230 [place] [address] documented as of this encounter Visit Diagnoses Not on filedocumented in this encounter Additional Health Concerns Assessment Noted Time PHQ-9 Depression Total Score: 1 12/31/19 24 10:03 AM EDT documented as of this encounter Care Teams Submarine Cable Equipment Technician Relationship Specialty Start Date End Date April Dave ANP 230 [place] [address] PCP - General Family Medicine 11/16/20 documented as of this encounter
--- OUTSIDE RECORDS SUMMARY | 2024-05-17 10:58 | XMS_ITS | Encounter Summary ---
Author Organization [employer] Address [address] [facility] 7[place], [place] [address] Care Team Providers Care Straightener And Aligner Name Role Phone April Dave Primary Care Provider [phone] Reason for Visit * Reason Onset Date Comments FYI 03/11/2023 Encounter Details Date Type Department Care Team ([facility] st Contact Info) Description 03/11/2023 Telephone [facility] MEDICINE 230 [place] [address] April Dave ANP 230 [place] [address] FYI Social History Tobacco Use Types Packs/Day [...] - 03/11/2023 1:30 PM EST Tc from [facility] [place] with [facility] pulmonology advising PCP, pt preferred [facility] and is booked for 04/29 @ 2:45 PM. documented in this encounter Plan of Treatment Upcoming Encounters Date Type Department Care Team (Late st Contact Info) Description 06/17/2024 9:00 AM EDT Office Visit [facility] MEDICINE 230 [place] [address] April Dave ANP 230 [place] [address] documented as of this encounter Visit Diagnoses Not on filedocumented in this encounter Care Teams Straightener And Aligner Relationship Specialty Start Date End Date April Dave ANP 230 [place] [address] PCP - General Family Medicine 11/16/20 documented as of this encounter
--- OUTSIDE RECORDS SUMMARY | 2024-05-17 10:58 | XMS_ITS | Encounter Summary ---
Author Organization [employer] Address [address] [facility] 7t [place] [address] Care Team Providers Care Premium Service Representative Name Role Phone April Dave Primary Care Provider [phone] Encounter Details Date Type Department Care Team (Late st Contact Info) Description 10/09/2023 Orders Only [facility] MEDICINE 230 [place] [address] Provider, MD Rubina Social History Tobacco Use [...] as of this encounter Plan of Treatment Upcoming Encounters Date Type Department Care Team (Late st Contact Info) Description 06/17/2024 9:00 AM EDT Office Visit [facility] MEDICINE 230 [place] [address] April Dave ANP 230 [place] [address] documented as of this encounter Procedures Procedure Name Priority Date/Time Associated Diagnosis Comments HM COLONOSCOPY Routine 09/05/2021 11:04 AM EDT documented in this encounter Results * Hm Colonoscopy (09/05/2021 11:04 AM EDT) Historical Provider HEALTH MAINTENANCE Final Result documented in this encounter Visit Diagnoses Not on filedocumented in this encounter Care Teams Premium Service Representative Relationship Specialty Start Date End Date April Dave ANP 230 [place] [address] PCP - General Family Medicine 11/16/20 documented as of this encounter
--- OUTSIDE RECORDS SUMMARY | 2024-05-17 10:58 | XMS_ITS | Encounter Summary ---
Author Organization [facility][1] Address [address] [address] Phone Care Team Providers Care Clinical Education Specialist Name Role Phone Inez Dewitt NP Primary Care Provider [phone] Encounter Details Date Type Department Care Team (Late st Contact Info) Description 05/10/2024 Office Communication [facility][1] [address] [address] Alan Nash MD [address] [address] Social History Tobacco Use Types Packs/Day [...] Telephone Encounter - Alan Nash MD - 05/10/2024 3:26 PM EST Needs f/u in 4-5 weeks with me--u can overbook How come there was no f/u documented in this encounter Plan of Treatment Upcoming Encounters Date Type Department Care Team (Late st Contact Info) Description 06/13/2024 4:00 PM EDT [facility] [address] [place] [address] Alan Nash MD [address] [address] documented as of this encounter Visit Diagnoses Not on filedocumented in this encounter Care Teams Clinical Education Specialist Relationship Specialty Start Date End Date Inez Dewitt NP [address] [place] [address] PCP - General 04/09/20 documented as of this encounter
--- OUTSIDE RECORDS SUMMARY | 2024-05-17 10:58 | XMS_ITS | Encounter Summary ---
Author Organization [employer] Address [address] [facility] 7t [place] [address] Care Team Providers Care Bicycle Mechanic Name Role Phone April Dave Primary Care Provider [phone] Reason for Visit * Reason Comments Med Refill Encounter Details Date Type Department Care Team ([facility] st Contact Info) Description 05/10/2024 Refill [facility] [address] [place] [address] MD [address] [place] [address] Restless legs Social History Tobacco Use Types Packs/Day Years [...] Description 06/17/2024 9:00 AM EDT Office Visit [facility] MEDICINE [address] [place] [address] April Dave ANP 230 [place] [address] documented as of this encounter Visit Diagnoses Diagnosis Restless legs Restless legs syndrome (RLS) documented in this encounter Additional Health Concerns Assessment Noted Time PHQ-9 Depression Total Score: 1 12/31/19 24 10:03 AM EDT documented as of this encounter Care Teams Bicycle Mechanic Relationship Specialty Start Date End Date April Dave ANP 230 [place] [address] PCP - General Family Medicine 11/16/20 documented as of this encounter
--- OUTSIDE RECORDS SUMMARY | 2024-05-17 10:58 | XMS_ITS | Encounter Summary ---
Author Organization [facility] Address [address] [facility] [address] [place] [address] Phone Care Team Providers Care Technical Solutions Engineer Name Role Phone Inez Dewitt NP Primary Care Provider [phone] Reason for Visit * Reason Comments Med Refill Encounter Details Date Type Department Care Team (Late Contact Info) Description 05/10/2024 [facility] 200 [place] [address] Alan Nash MD [address] [facility] [address] [place] [address] Social History Tobacco Use Types [...] on file documented as of this encounter Plan of Treatment Upcoming Encounters Date Type Department Care Team (Late Contact Info) Description 06/13/2024 4:00 PM EDT Office Visit [facility] [address] [place] [address] Alan Nash MD [address] [facility] [address] [place] [address] documented as of this encounter Visit Diagnoses Not on filedocumented in this encounter Care Teams Technical Solutions Engineer Relationship Specialty Start Date End Date Inez Dewitt NP [address] [place] [address] PCP - General 04/09/20 documented as of this encounter
--- OUTSIDE RECORDS SUMMARY | 2024-05-17 10:58 | XMS_ITS | Encounter Summary ---
Author Organization [employer] Address [address] [place] [address] [address], [place] [address] Care Team Providers Care Cigarette Inspector Name Role Phone Bradford Edge Primary Care Provider [phone] Reason for Visit * Reason Comments Diabetes Follow-up Encounter Details Date Type Department Care Team ([facility] st Contact Info) Description 04/22/2024 2:15 PM EST Office Visit [facility] MEDICINE 230 [place] [address] Bradford Edge ANP 230 [place] [address] Diabetic nephropathy associated with type 2 diabetes [...] 5:33 PM EST documented in this encounter Miscellaneous Notes * Result Encounter Note - AARON Linares - 04/22/2024 2:15 PM EST Please let Vikki know that there is degenerative disc disease throughout her spine but no evidence of fracture or misalignment in her vertebrae. I can refer to physical therapy if she would like for back pain. Thanks documented in this encounter Plan of Treatment Upcoming Encounters Date Type Department Care Team (Late st Contact Info) Description 06/17/2024 9:00 AM EDT Office Visit [facility] MEDICINE 230 [place] [address] Bradford Edge ANP [address] [place] [address] Scheduled Orders Name Type Priority Associated Diagnoses [...] PM EST Narrative 04/22/2024 3:51 PM EST ?[facility] ?[address] ?[place] [address] ?XRay Report ? Signed ? Patient: Washburne,Vikki J ?MR#: [id number] ?? [id number] ? : 1960 ?Acct:[id number] ? Age/Sex: 64 / F ?ADM Date: 01/24/25 ? Loc: HO.HHCX ? Attending Dr: Bradford Edge NP ? Ordering Physician: BRADFORD EDGE NP ?? Date of Service: 04/22/24 ?? Procedure(s): XR thoracic spine 2V ?? Accession Number(s): [id number] ? cc: BRADFORD EDGE NP ? EXAMINATION: [...] DD/ 1525 ? TD/TT: 04/22/24 1538 ? Brancher: ? Procedure Note Ruchi Holder - 04/22/[address] [address] XRay Report Signed Patient: Vikki Willis JMR#: [id number] : 1960cct:[id number] Age/Sex: 64 / FADM Date: 04/22/24 Loc: HO.HHCX Attending Dr: Bradford Edge NP Ordering Physician: BRADFORD EDGE NP Date of Service: 04/22/24 Procedure(s): XR thoracic spine 2V Accession Number(s): [id number] cc: BRADFORD EDGE NP EXAMINATION: XR THORACIC [...] Jose Grissom MD 04/22/2024 03:48 PM EST RP Dictated By: Jose Grissom MD Signed By: <Electronically signed by Jose Grissom MD in OV> 04/22/24 1548 DD/ 1525 TD/TT: 04/22/24 1538 Brancher: Result Landry Edge ANP IMG XR PROCEDURES Final Result * POCT HGB A1C (04/22/2024 3:06 PM EST) Hemoglobin A1C 5.2 4.0 - 6.0 % QC Media Lot # [id number] Lot# Expiration Date , Blood 04/22/2024 3:06 PM EST Result Landry Edge ANP POINT OF CARE TEST ENTER/EDIT OR DERABLES Final Result * POCT Glucose (04/22/2024 3:06 PM EST) Glucose Blood, POC 159 60 - 200 mg/dL QC Media Lot # [id number] Lot# Expiration Date ,025 Blood Capillary blood specimen / Unknown 04/22/2024 3:06 PM EST Result Landry WALKER POINT OF CARE TEST ENTER/EDIT OR DERABLES Edited Result - Final documented in this encounter Visit Diagnoses Diagnosis Diabetic nephropathy associated with type 2 diabetes mellitus ([facility])- Primary Mid back pain Iron deficiency anemia, unspecified iron deficiency anemia type Hypokalemia Hypopotassemia documented in this encounter Additional Health Concerns Assessment Noted Time PHQ-9 Depression Total Score: 1 12/31/19 24 10:03 AM EDT documented as of this encounter Care Teams Cigarette Inspector Relationship Specialty Start Date End Date Bradford Edge ANP 230 [place] [address] PCP - General Family Medicine 11/16/20 documented as of this encounter
--- OUTSIDE RECORDS SUMMARY | 2024-05-17 10:58 | XMS_ITS | Encounter Summary ---
Author Organization [employer] Address [address] [place] [address] Care Team Providers Care Dusting And Brushing Machine Operator Name Role Phone April Dave Primary Care Provider [phone] Reason for Visit * Reason Onset Date Comments Triage 08/22/2022 Encounter Details Date Type Department Care Team (Late Contact Info) Description 08/22/2022 Telephone [facility] MEDICINE [address] [place] [address] April Dave ANP 230 [place] [address] Triage Social History Tobacco Use Types Packs/Day [...] accepted this outcome Please contact pt at [phone] documented in this encounter Plan of Treatment Upcoming Encounters Date Type Department Care Team (Late Contact Info) Description 06/17/2024 9:00 AM EDT Office Visit [facility] MED[facility] [address] [place] [address] April Dave ANP [address] [place] [address] documented as of this encounter Visit Diagnoses Not on filedocumented in this encounter Care Teams Dusting And Brushing Machine Operator Relationship Specialty Start Date End Date April Dave ANP 230 [place] [address] PCP - General Family Medicine 11/16/20 documented as of this encounter
--- OUTSIDE RECORDS SUMMARY | 2024-05-17 10:58 | XMS_ITS | Encounter Summary ---
Author Organization [employer] Address [address] [address] Care Team Providers Care Propeller Layout Worker Name Role Phone Bradford Edge Primary Care Provider [phone] Reason for Referral * Consultation (Routine) - Closed Specialty Diagnoses / Procedures Referred By Gwyn lee Referred To Contact Physical Therapy Diagnoses Mid back pain Bradford Edge ANP [address] [place] [address] Phone: tel: fax: [facility] [place] [address] [place] [address] Phone: tel: fax: Referral ID Status Reason Start Date Expiration Date V isits Requested Visits Authorized [id number] Closed Specialty Services Required 04/26/2024 04/26/2025 1 1 Reason for Visit * Reason Onset Date Comments Results 04/26/2024 Encounter Details Date Type Department Care Team (Late st Contact Info) Description 04/26/2024 Telephone [facility] MED[facility] [address] [place], [place] [phone] Aicha Abebe, NIGEL Results Social History Tobacco Use Types Packs/Day Years [...] as of this encounter Miscellaneous Notes * Addendum Note - AARON Linares - 04/26/2024 3:53 PM ESTAddended by: BRADFORD EDGE on: 04/26/2024 03:53 PM Modules accepted: Orders * Telephone Encounter - Emily Pitts RN - 04/26/2024 12:55 PM EST Telephone call placed to pt regarding below imaging results and POC. Informed imaging showed degenerative disk disease. Recommendation is PT. Pt agreeable. Advised to let us know if she doesn't hear from PT to schedule an appt within 2 weeks. Also let us know if she finishes PT and is still having pain so we can make a follow up. Pt verbalized understanding and denied having any further questionsor concerns at this time. * Telephone Encounter - Aicha Abebe RN - 04/26/2024 9:58 AM EST Telephone call x1 to pt to advise of below results. No answer, left voicemail to call back. * Telephone Encounter - Aicha Abebe RN - 04/26/2024 9:53 AM EST ----- Message from Bradford Edge sent at 04/25/2024 5:41 PM EST ----- Please let Vikki know that there is degenerative disc disease throughout her spine but no evidence of fracture or misalignment in her vertebrae. I can refer to physical therapy if she would like for back pain. Thanks documented in this encounter Plan of Treatment Upcoming Encounters Date Type Department Care Team (Late st Contact Info) Description 06/17/2024 9:00 AM EDT Office Visit [facility] MEDICINE [address] [place] [address] Bradford Edge ANP [address] [place] [address] Scheduled Referrals Name Type Priority Associated Diagnoses Orde r Schedule Referral to Physical Therapy Outpatient Referral Routine Mid back pain Expected: 04/26/2024 (Approximate), Expires: 04/26/2025 documented as of this encounter Visit Diagnoses Diagnosis Mid back pain- Primary documented in this encounter Additional Health Concerns Assessment Noted Time PHQ-9 Depression Total Score: 1 12/31/19 24 10:03 AM EDT documented as of this encounter Care Teams Propeller Layout Worker Relationship Specialty Start Date End Date Bradford Edge ANP [address] [place] [id number] PCP - General Family Medicine 11/16/20 documented as of this encounter
--- OUTSIDE RECORDS SUMMARY | 2024-05-17 10:58 | XMS_ITS | Clinical Summary ---
Author Organization [facility] Address [address] [place] [address] Phone Care Team Providers Care Battery Service Technician Name Role Phone Inez Dewitt NP Primary Care Provider [phone] Allergies Active Allergy Reactions Criticality Noted Date [...] DAILY IN THE MORNING AND AT BEDTIME 12/07/19 22 Active Januvia 100 MG tablet Take 100 mg by mouth 11/13/19 22 Active sertraline (ZOLOFT) 50 MG tablet Take 50 mg by mouth 10/12/19 22 Active OXcarbazepine (TRILEPTAL) 150 MG tablet TAKE 1 TABLET BY MOUTH TWICE DAILY IN THE MORNING AND AT BEDTIME 12/07/19 22 Active omeprazole (PriLOSEC) [address] capsule Take 20 mg by mouth 10/12/19 22 Active olmesartan (BENICAR) 40 MG tablet Take 40 mg by mouth 10/11/19 22 Active UltiCare Mini [place] 31G X 6 MM misc USE FOUR TIMES DAILY WITH INSULIN 12/07/19 22 Active Lantus SoloStar 100 UNIT/ML injection INJECT 16 UNITS SUBCUTANEOUSLY ONCE DAILY AT BEDTIME 10/12/19 22 Active NovoLOG FLEXPEN 100 UNIT/ML injection INJECT 6 UNITS SUBCUTANEOUSLY THREE TIMES DAILY WITH BREAKFAST, LUNCH, AND SUPPER 10/11/19 22 Active imipramine (TOFRANIL) 25 MG tablet Take 50 mg by mouth every night 10/12/19 22 Active Flovent HFA 110 MCG/ACT inhaler INHALE 2 PUFFS TWICE DAILY. RINSE MOUTH AFTER USING. 12/07/19 22 Active FeroSul 325 (65 Fe) MG tablet TAKE 1 TABLET BY MOUTH EVERY MORNING (WITH VITAMIN C) 12/07/19 22 Active Docusate Sodium (DSS) 100 MG capsule Take 100 mg by mouth 10/29/19 11 Active D3 Super Strength 50 MCG (2000 UT) capsule Take 1 capsule by mouth 12/07/19 22 Active cetirizine (ZyrTEC) 10 MG tablet Take 10 mg by mouth 12/07/19 22 Active atorvastatin (LIPITOR) 40 MG tablet Take 40 mg by mouth at bed time 12/07/19 22 Active Calcium Carbonate-Vit chatman D3 600-400 MG-UNIT tablet Take 1 tablet by mouth every morning and evening 12/07/19 22 Active Aspirin Low Dose 81 MG EC tablet Take 81 mg by mouth at bed time 12/07/19 22 Active amLODIPine (NORVASC) 2.5 MG tablet Take 2.5 mg by mouth at bed time 12/07/19 22 Active furosemide (LASIX) 40 MG tablet TAKE 1 AND 1/2 TABLETS BY MOUTH IN THE MORNING 135 tablet 05/10/19 25 Active furosemide (LASIX) 40 MG tablet TAKE 1 AND 1/2 TABLETS BY MOUTH IN THE MORNING 135 tablet 02/08/20 24 2024 Discontinued Active Problems Problem Noted Date Diagnosed Date [...] Encounters Date Type Department Care Team Description 05/10/2024 Office Communication [facility] [address] [place] [address] Alan Nash MD 05/10/2024 Refill [facility] [address] [place] [address] Alan Nash MD from Last 3 Months [...] 09/25/2022 4:43 PM EDT Plan of Treatment Upcoming Encounters Date Type Department Care Team (Late st Contact Info) Description 06/13/2024 4:00 PM EDT Office Visit [facility] [address] [place] [address] Alan Nash MD [address] [facility] [address] [place] [address] Health Maintenance Due Date Last Done Comments Breast Cancer Screening 1960 Colorectal Cancer Screening: Annual FOBT 2009 Colorectal Cancer Screening: Colonoscopy 2009 Colorectal Cancer Screening: Sigmoidoscopy 2009 Diabetes: Ophthalmology Exam 04/29/2020 Diabetes: Pedal Pulse Checked 04/29/2020 Diabetes: Sensory Foot Exam 04/29/2020 Diabetes: Visual Foot Exam 04/29/2020 Influenza Vaccine (#1) 2023 3, 03/04/2021, 02/07/2020, Additional history exists Diabetes: Hemoglobin A1C 07/21/2024 025, 12/31/2023, 05/05/2023 Hepatitis B Vaccine Aged Out 08/17/2017, 02/03/2017, 09/24/2016, Additional history exists No longer eligible based on patient's age to complete this topic Pneumococcal Vaccine: Pediatrics (0 to 5 Years) and At-Risk Patients (6 to 64 Years) Completed 07/01/2023, 11/07/2014, 07/27/2014, Additional history exists [place] [address] [place] [address] ([id number]) [facility] ([id number]) Care Teams Battery Service Technician Relationship Specialty Start Date End Date Inez Dewitt NP [address] [place] [id number] PCP - General 04/09/20
--- OUTSIDE RECORDS SUMMARY | 2024-05-17 10:58 | XMS_ITS | Encounter Summary ---
Author Organization [employer] Address [address] [facility] 7[address] [place] [address] Care Team Providers Care Operation Supervisor Name Role Phone April Dave Primary Care Provider [phone] Encounter Details Date Type Department Care Team [...] Description 06/17/2024 9:00 AM EDT Office Visit [facility] MEDICINE [address] [place] [address] April Dave ANP [address] [place] [address] documented as of this encounter Visit Diagnoses Not on filedocumented in this encounter Additional Health Concerns Assessment Noted Time PHQ-9 Depression Total Score: 1 12/31/19 24 10:03 AM EDT documented as of this encounter Care Teams Operation Supervisor Relationship Specialty Start Date End Date April Dave ANP [address] [place] [id number] PCP - General Family Medicine 11/16/20 documented as of this encounter
--- OUTSIDE RECORDS SUMMARY | 2024-05-17 10:58 | XMS_ITS | Data Portability ---
Author Organization [employer] Address [address] [place] [address] Care Team Providers Care Oracle Financial Application Developer Name Role Phone [facility] Referring Provider HIM CCA OTHER Assessment Encounter [...] in the field was performed by my planning coordinator colleague, as noted above, I provided real-time [...] assessment and plan as documented by the planning coordinator. I provided real-time medical direction for this [...] in the field was performed by my planning coordinator colleague, as noted above, I provided real-time [...] Assessment and Plan as documented by the Glass Silverer. We discussed the diagnostic uncertainty of home [...] to call 911- verbalized understanding of instruction [email or web address] Not available 03/08/2024 00:03:32 Plan of Treatment Reminders Order Date Submit Date Provider Last Modified By Organization Details Last Modified Time Details Appointments None recorded. Lab BMP, serum or plasma 2023 [email or web address] [facility], [address] [place] [address], [id number], 4 15:47:26 Referral None recorded. Procedures None recorded. Surgeries None recorded. Imaging None recorded. Medication Orders furosemide 10 mg/mL injection solution 2023 024 [email or web address] 0 [facility], [address] [place] [address], [id number], 4 15:47:26 potassium chloride ER 20 mEq tablet,exte nded release 2023 024 [email or web address] 0 [facility], [address] [place] [address], [id number], 4 15:47:26 azithromyci n 250 mg tablet [address] [facility], [address] [place] [address], [id number], 3 12:11:17 Patient TargetsNo targets recorded. Patient InstructionsNo instructions [...] Not available Not available Not available 01/30/2024 73603 2 RxNorm Not Available [facility] 4 17:29:12 66466 hydrocodo ne Not available Not available Not available Not available 03/07/2024 5489 RxNorm Not Available [facility] 4 12:41:10 77186 tramadol medicatio n Not available Not available Not available 03/07/2024 80072 Rx[facility] Not Available [facility] 4 12:41:10 97267 lisinopri l medicatio n Not available Not available Not available 03/07/2024 23921 RxNorm Not Available [facility] 4 12:41:10 7573 albuterol medicatio n Not available Not available Not available 01/26/2024 435 RxNorm Not Available [facility] 4 03:38:23 Medications Name Sig Start Date Stop Date Status Note LastModified by Organization Details LastModified Time medbox status USE DIRECTED active Not Available Not Available No t Available pulse oximet airial [id number] USE TWICE DAILY DIRECTED active Not Available [...] Available Not Available No t Available [employer] [place] Lite kit USE DIRECTED active Not Available [...] Address Organization Details Last Updated DateTime 3 71402.5 36 g 18 /min 98 /min 97 % 97 % 147.32 cm 100.6 [degF] 141 mm[Hg] 53 mm[Hg] Not Available [employer] 3 20:20:15 Date Recorded Body temperature Oxygen saturation Oxygen saturation in Arterial blood by Pulse oximetry Respiratory rate Heart rate Systolic blood pressure Diastolic blood pressure Provider Name and Address Organization Details Last Updated DateTime 4 96.3 [degF] 98 % 98 % 18 /min 90 /min 123 mm[Hg] 98 mm[Hg] Not Available [employer] 4 12:44:04 Date Recorded Respiratory rate Heart rate Body height Oxygen saturation Oxygen saturation in Arterial blood by Pulse oximetry Body weight Body temperature Systolic blood pressure Diastolic blood pressure Provider Name and Address Organization Details Last Updated DateTime 4 20 /min 97 /min 147.32 cm 99 % 99 % 37362.6 96 g 98.1 [degF] 116 mm[Hg] 77 mm[Hg] Not Available [employer] 4 19:02:23 Date Recorded Heart rate Body temperature Oxygen saturation Oxygen saturation in Arterial blood by Pulse oximetry Respiratory rate Systolic blood pressure Diastolic blood pressure Provider Name and Address Organization Details Last Updated DateTime 4 96 /min 96.9 [degF] 98 % 98 % 18 /min 151 mm[Hg] 86 mm[Hg] Not Available [employer] 4 15:08:50 Date Recorded Body height Body mass index (BMI) Body weight Provider Name and Address Organization Details Last Updated DateTime 03/07/2024 147.32 cm 26.8 kg/m2 14750.82 g Rosario Maguire MD [address] [place] [address],[address] [facility], [place], [address], [place] - [employer] 03/07/2024 15:26:21 Date Recorded Oxygen saturation Oxygen saturation in Arterial blood by Pulse oximetry Body temperature Respiratory rate Heart rate Systolic blood pressure Diastolic blood pressure Provider Name and Address Organization Details Last Updated DateTime 2 96 % 96 % 98.7 [degF] 18 /min 93 /min 119 mm[Hg] 87 mm[Hg] Not Available [employer] 2 20:36:23 Social History None recorded. Functional Status None recorded. Mental Status None recorded. Family History Nothing Reported. Medical History No medical history recorded. Gynecological HistoryNo gynecological history recorded. Obstetrics History GPAL:G 0 P 0 0 0 0 Past Encounters Encounter ID Performer Location Encounter Start Date Encounter Closed Date Diagnosis/Indication Diagnosis SNOMED-CT Code Diagnosis ICD10 Code Diagnosis Note [id number] [email or web address] [address] [place] [phone] 0 12/13/2021 20:36:20 12/20/2021 13:30:15 Cellulitis 401459100 L03.90 [id number] Yelena Landaverde MD [facility] [address] [place] [phone] 02/23/2023 20:14:26 02/23/2023 23:04:54 Community acquired pneumonia 354296939 J18.9 Acute exac erbation of chronic obstructive pulmonary disease 374903725 J44.1 [id number] Winsome Díaz MD [facility] [address] [place] [phone] 10/24/2023 12:43:55 10/24/2023 13:07:28 Cat bite [id number] W55.01XA [id number] Yelena Landaverde MD [facility] [address] [place] [address] [phone] 01/30/2024 19:02:19 02/01/2024 00:29:21 Abdominal pain 28128781 R10.9 Suprapubic pain 30995470 6 R10.30 [id number] Rosario Maguire MD [facility] [address] [place] [address] [phone] 03/07/2024 15:08:39 03/08/2024 17:25:37 Peripheral edema 746028324 R60.9 No clinical evidence of CHFBoth legs more edematous than usual, right foot is more swollen than left/no history of trauma but no cords /Homans negative so DVT is unlikely. No warmth or erythema to suggest cellulitis . Primary care team: If patient continues to have pain/sts she will need imaging studies. Patient is quite anemic- her [facility] notes from 02/20 through 02/22/2024 state [...] Sepulveda Member ID Guarantor Name 12/13/2021 1 [facility] - DOS PRIOR TO 2022 - DUAL ELIGIBLE (MEDICARE REPLACEMENT/AD VANTAGE - HMO) Vikki Willis [id number] Vikki Willis 02/23/2023 1 [employer] [facility] [employer] - DOS ON OR AFTER 2022 - DUAL ELIGIBLE - CORRECTION OPTIONS AND ONE CARE (MEDICARE REPLACEMENT/AD VANTAGE - HMO) Vikki Willis [id number] Vikki Willis 10/24/2023 1 [facility] [employer] - DOS ON OR AFTER 2022 - DUAL ELIGIBLE - CORRECTION OPTIONS AND ONE CARE (MEDICARE REPLACEMENT/AD VANTAGE - HMO) Vikki Willis [id number] Vikki Willis 01/30/2024 1 [facility] [employer] - DOS ON OR AFTER 2022 - DUAL ELIGIBLE - CORRECTION OPTIONS AND ONE CARE (MEDICARE REPLACEMENT/AD VANTAGE - HMO) Vikki Willis [id number] Vikki Willis 03/07/2024 1 [facility] [employer] - DOS ON OR AFTER 2022 - DUAL ELIGIBLE - CORRECTION OPTIONS AND ONE CARE (MEDICARE REPLACEMENT/AD VANTAGE - HMO) Vikki iWllis [id number] Vikki Willis Notes Date Note Type Note Provider [...] .................... .................... .................... .................... .................... .................... . Glass Silverer Note: Dispatched for patient with chief complaint of umbilicus discharge. Upon arrival patient presents on wheelchair with normal respirations and alert x 4. Patient states having umbilicus pain and white discharge 3 days ago. Patient states no current pain. Umbilicus appears dry with no signs of erythema, swelling, or infection. [facility] contacted. Patient education given, red flags discussed. .................... .................... .................... .................... .................... .................... .................... . Disposition: Fulfilled Reed Carlos MD [address] [facility],[address], [place], [address], [employer] 12/13/2021 23:49:19 02/23/2023 text/html HPI: HX: JANET, [...] CRC RN DID NOT NEED FURTHER INFO [facility] HPI: runny nose, clear mucous, x 1 mo. seen by PCP, given cough medicine with codeine. last appt w PCP was 1 wk ago. still having productive cough. started corcidin last week 5d ago. using combivent and flovent. no sore throat, and some chest congestion Yelena Landaverde MD [address] [facility],[address], [place], [phone], [employer] 02/23/2023 20:29:29 10/24/2023 text/html CRC Nurse Triage Notes (Elizabeth Grijalva): Reason For Request: Patient was bit on the arm by her Kitten. Chief Complaints: Injury PMH: COPD/Asthma, Diabetes, Hypertension Allergies: Albuterol Other Allergies: Vicodin Comments: Gallery Assistant verified the member's name//address and phone number.Member [...] .................... .................... .................... .................... .................... .................... . Glass Silverer Note From Destini Castro: Pt with significant bite/scratch almendarez from kitten while both kittens in a fight. Kitten not yet fully vaccinated. A&ox3, vss, afebrile; one puncture site actively bleeding at present. C consulted, pt agreeable to go to ER by POV to have wounds irrigated and evaluated for stitches. Hand and wrist wrapped with clean dry dressing. Red flags reviewed. Glass Silverer Allergies: Albuterol .................... .................... .................... .................... .................... .................... .................... . Disposition: Chitra Díaz MD [address] [facility],[address], [place], [phone], [employer] 10/24/2023 13:07:25 01/30/2024 text/html CRC Nurse Triage Notes (Figueroa Sanders): Reason For Request: Pt reporting problem going number number 2 primarily but notes having problems going number 1 as well Chief Complaints: Abdominal pain PMH: COPD/Asthma, Hypertension, Anxiety Disorder, Chronic Kidney Disease, Depression, Epilepsy/Seizure Disorder, Diabetes Mellitus Type 2 Comments: Gallery Assistant verified the Pt.'s name//address and phone number. [...] scene and unable to make contacted - [place] [employer] contact and will be dispatching a unit [facility] HPI: pain w trying to urinate, like she has to push. some constipation. .................... .................... .................... .................... .................... .................... .................... . Glass Silverer Note From Bob Ac: Pt chief complaint today of lower abdominal pain most closely related to the Pubic/perineal area. Pt states that she has been having this problem for 4 days prior to [facility] visit. Pt states she has been experiencing [...] Pt is CAOX4 with a GCS of [facility] Yelena Landaverde consultedPt expressed that it would be in her best interest to be seen at. Center of higher ability for more testing that [facility] cannot provide. Pt is also educated on the possible negative effects that can occur from waiting up t and including possible . Pt decides to wait till tomorrow for further diagnostics and treatmentPt is educated on red flag S&S and informed to call emergency services if any present. .................... .................... .................... .................... .................... .................... .................... . [facility] Consulted: Yelena Landaverde .................... .................... .................... .................... .................... .................... .................... . Disposition: Fulfilled Yelena Landaverde MD [address] [facility],[address], [place], [address], [facility] - [employer] 01/30/2024 19:47:48 03/07/2024 text/html HPI: Call returned [...] come into walk in center. Agrees to [facility] for evaluation. Confirmed demographics and allergies. .................... .................... .................... .................... .................... .................... .................... . CRC Nurse Triage Notes (Treasure Childers): Chief Complaints: Swelling PMH: COPD/Asthma, Hypertension, Anxiety Disorder, Chronic Kidney Disease, Depression, Epilepsy/Seizure Disorder, Diabetes Mellitus Type 2, Asthma Comments: HPI reviewed Glass Silverer Organization Information for James Greene Legal Name: [facility] Transportation Address: [address] [place] [address], [place] [address], [employer] Machine Tender: Douglas Bucio MD CLIA No.: [id number] Glass Silverer POC Test Results from [facility] (15:03:32) pH: 7.39 pH units pCO2: 32.2 mmHg pO2: 41.0 mmHg Na: 135 mmol/L K: 3.7 mmol/L iCa: 1.21 mmol/L Cl: 106 mmol/L TCO2: 19.2 mEq/L Hct: 28 % Hb: 9.5 g/dL Glu: 103 mg/dL Lac: 1.3 mmol/L Cr: 0.77 mg/dL BUN: 7 mg/dL A .................... .................... .................... .................... .................... .................... .................... . Glass Silverer Note From James Greene: This 63-year-old female [...] .................... .................... .................... .................... .................... .................... . [facility] Consulted: Rosario Maguire .................... .................... .................... .................... .................... .................... .................... . Disposition: Fulfilled SEGMD: Patient denies trauma/she denies history of gout. Although her right foot is more swollen than the left she reports her legs are much more edematous than baseline and they are painful. She was hospitalized at [facility] the week of 02/20 with a potassium of 2 diverticulitis and a UTI. Her hemoglobin was noted to go from 11 down to 8 during that visit with no history of GI bleeding. She also has a PMH including but not limited to: Asthma/COPD/HTN/CHF/ /CKD/DM 2/epilepsy/(iron deficiency anemia, hyponatremia and hypokalemia per PCP note 03/03/2024)./Anxiety and depression. Rosario Maguire MD [address] [place] [address],[address], [place], [phone], [place] - [employer] 03/08/2024 00:13:48 OBGyn Episode No OBEpisode recorded.
--- OUTSIDE RECORDS SUMMARY | 2024-05-17 10:58 | XMS_ITS | Encounter Summary ---
Author Organization [employer] Address [address] [facility] [address] [place] [address] Care Team Providers Care New Car Driver Name Role Phone April Dave Primary Care Provider [phone] Reason for Visit * Reason Onset Date Comments Hospital Follow-up 12/16/2023 Encounter Details Date Type Department Care Team (Late st Contact Info) Description 12/16/2023 Telephone [facility] MED[facility]INE [address] [place] [address] April Dave ANP [address] [place] [address] Hospital Follow-up Social History Tobacco Use Types [...] from pt requesting a HDF appt. Hospital: [facility] Date of admission: 12/09/23 Discharge date: 12/11/23 Diagnosed: Hand Surgery documented in this encounter Plan of Treatment Upcoming Encounters Date Type Department Care Team (Late st Contact Info) Description 06/17/2024 9:00 AM EDT Office Visit [facility] MED[facility] [address] [place] [address] April Dave ANP [address] [place] [address] documented as of this encounter Visit Diagnoses Not on filedocumented in this encounter Care Teams New Car Driver Relationship Specialty Start Date End Date April Dave ANP [address] [place] [id number] PCP - General Family Medicine 11/16/20 documented as of this encounter
--- OUTSIDE RECORDS SUMMARY | 2024-05-17 10:58 | XMS_ITS | Encounter Summary ---
Author Organization [employer] Address [address] [facility] [address], [place] [address] Care Team Providers Care National Service Officer Name Role Phone April Dave Primary Care Provider [phone] Reason for Visit * Reason Onset Date Comments Referral 04/27/2024 Bottom Loader 04/27/2024 Encounter Details Date Type Department Care Team ([facility] st Contact Info) Description 04/27/2024 Telephone [facility] MED[facility]INE [address] [place] [address] April Dave ANP [address] [place] [address] Referral; Bottom Loader Social History Tobacco Use Types Packs/Day Years [...] encounter Miscellaneous Notes * Telephone Encounter - Beatriz Mckenzie - 04/27/2024 11:28 AM EST Referral refax to office * Telephone Encounter - Gwen Mckenzie - 04/27/2024 9:09 AM EST Tc from pt stating called to it security administrator office to make an appt but need a referral. Pt has active referral since 01/03. Dr. Terell Nicholas, D.P.M Facility Location: [address] [place] [address] 2[address] [place] [address] P. [phone] documented in this encounter Plan of Treatment Upcoming Encounters Date Type Department Care Team (Late st Contact Info) Description 06/17/2024 9:00 AM EDT Office Visit [facility] MEDICINE [address] [place], [place] [phone] April Dave ANP [address] [place], [place] [phone] documented as of this encounter Visit Diagnoses Not on filedocumented in this encounter Additional Health Concerns Assessment Noted Time PHQ-9 Depression Total Score: 1 10/03/20 24 10:03 AM EDT documented as of this encounter Care Teams National Service Officer Relationship Specialty Start Date End Date April Dave ANP [address] [place] [address] PCP - General Family Medicine 11/16/20 documented as of this encounter
--- OUTSIDE RECORDS SUMMARY | 2024-05-17 10:58 | XMS_ITS | Encounter Summary ---
Author Organization [facility] Address [address] [place] [address] Phone Care Team Providers Care Shoe Cobbler Name Role Phone EsdrasInez TRI Primary Care Provider [phone] Encounter Details Date Type Department Care Team (Late st Contact Info) Description 08/03/2023 Office Communication [facility] [address] [place] [address] Alan Nash MD [address] [address] Social History Tobacco Use Types [...] Visit [facility] [address] [place] [address] Alan Nash MD [address] [facility] [address] [place] [address] documented as of this encounter Visit Diagnoses Not on filedocumented in this encounter Care Teams Shoe Cobbler Relationship Specialty Start Date End Date Inez Dewitt NP [address] [place] [address] PCP - General 04/09/20 documented as of this encounter
--- OUTSIDE RECORDS SUMMARY | 2024-05-17 10:58 | XMS_ITS | Encounter Summary ---
Author Organization [employer] Address [address] [facility] [address] [address] Care Team Providers Care Sql Server Architect Name Role Phone April Dave Primary Care Provider [phone] Reason for Visit * Reason Comments Med Refill Encounter Details Date Type Department Care Team ([facility] st Contact Info) Description 01/05/2023 Refill [facility] MED[facility]INE [address] [place] [address] April Dave ANP [address] [place] [address] Depressive disorder Social History Tobacco Use Types [...] Description 06/17/2024 9:00 AM EDT Office Visit [facility] MED[facility]INE [address] [place] [address] April Dave ANP [address] [place] [phone] documented as of this encounter Visit Diagnoses Diagnosis Depressive disorder Depressive disorder, not elsewhere classified documented in this encounter Care Teams Sql Server Architect Relationship Specialty Start Date End Date April Dave ANP [address] [place] [id number] PCP - General Family Medicine 11/16/20 documented as of this encounter
--- OUTSIDE RECORDS SUMMARY | 2024-05-17 10:58 | XMS_ITS | Encounter Summary ---
Author Organization [employer] Address [address] [place] [address] Care Team Providers Care Pastry Mixer Name Role Phone April Dave Primary Care Provider [phone] Encounter Details Date Type Department Care Team (Late st Contact Info) Description 02/28/2022 Orders Only [facility] [address] [place] [address] Emily Pitts, RN [address] [place] [address] Social History Tobacco Use Types Packs/Day Years [...] 9:00 AM EDT Office Visit [facility] MEDICINE [address] [place] [address] April Dave ANP [address] [place] [address] documented as of this encounter Visit Diagnoses Not on filedocumented in this encounter Care Teams Pastry Mixer Relationship Specialty Start Date End Date April Dave ANP [address] [place] [address] PCP - General Family Medicine 11/16/20 documented as of this encounter
--- OUTSIDE RECORDS SUMMARY | 2024-05-17 10:58 | XMS_ITS | Clinical Summary ---
Author Organization [email or web address] Address [address] [facility] [address] [place] [address] Care Team Providers Care Public Address System Mechanic Name Role Phone Bradford Edge Primary Care Provider [phone] Allergies Active Allergy Reactions Criticality Noted Date Comments Mohamud Inhibitors Cough,Other 03/28/2010 Albuterol Shortness of breath [...] AT BEDTIME 90 tablet 3 024 Active Potassium Bicarb-Citric Acid 20 MEQ effervescent tabletIndicatio ns:Hypokalemia Take 1 tablet by mouth 2 times daily. Take immediately after eating. Dissolve in 2-3 oz water. 10 tablet 024 Active topiramate (Topamax) 100 MG tabletIndicatio ns:Seizure disorder (CMS/HCC) Take 1 tablet (100 mg) by mouth 2 times daily. 60 tablet 3 025 Active rOPINIRole (Requip) 1 MG tabletIndicatio ns:Restless legs TAKE 1 TABLET BY MOUTH TWICE DAILY IN THE MORNING AND IN THE EVENING 60 tablet 025 Active rOPINIRole (Requip) 1 MG tabletIndicatio ns:Restless Leg Syndrome Take 1 tablet (1 mg) by mouth 2 times daily. 60 tablet 024 2024 Discontinued Active Problems Problem Noted Date [...] organization. Date Type Department Care Team Description 05/10/[address] [facility] [address] [place] [address] MD Restless legs 05/02/[address] [address] Bradford Edge ANP Appointment Request; Referral 04/27/[address] [address] Bradford Edge ANP Referral; Enamel Cracker 04/26/[address] [address] Aicha Abebe RN Results 04/22/2024 2:15 PM EST Office Visit [address] [address] Bradford Edge ANP Diabetic nephropathy associated with type 2 diabetes mellitus (CMS/HCC) (Primary Dx); Mid back pain; Iron deficiency anemia, unspecified iron deficiency anemia type; Hypokalemia 04/22/2024 Travel 04/22/[address] [address] Miesha Zelaya MA chart prep 04/13/[address] [address] Aicha Abebe, operations program manager Question 04/12/[address] [facility] [address] [place] [phone] Bradford Edge ANP 04/12/2024 Refill [facility] [address] [place] [address] Bradford Edge ANP 04/11/[address] [facility] [address] [place] [address] Bradford Edge ANP Seizure disorder (CMS/HCC) 03/28/[address] [address] Bradford Edge ANP 03/21/2024 2:00 PM EST Office Visit [facility] [address] [place] [address] Bradford Edge ANP Stool mucus (Primary Dx); Unable to maintain weight; Unexplained weight loss; Complex care coordination; Screening mammogram for breast cancer 03/17/[address] [address] Sara Amado MD NTTS 03/16/[address] [facility] [address] [place] [address] Bradford Edge ANP Hypokalemia (Primary Dx) 03/15/[address] [address] Emily Pitts RN NTTS 03/15/2024 Orders Only GENERIC EXTERNAL DATA DEPARTMENT Provider, Generic External Data 03/15/[address] [address] Bradford Edge ANP Results 03/14/2024 2:00 PM EST Office Visit [facility] [address] [place] [address] MD Acute diarrhea (Primary Dx); Restless legs 03/14/[address] [facility] [address] [place] [address] James Farris MD 03/14/[address] [address] Aicha Abebe, RN Nurse Triage 03/08/[address] [address] Bradford Edge ANP Nurse Triage 03/08/[address] [address] Bradford Edge ANP callback requested 03/08/[address] [address] Bradford Edge ANP 03/07/[address] [address] Bradford Edge ANP Nurse Triage 03/03/2024 1:15 PM EST Office Visit [address] [address] Bradford Edge ANP Iron deficiency anemia, unspecified iron deficiency anemia type (Primary Dx); Hypokalemia; Rash 03/03/2024 Travel 03/02/[address] [address] Miesha Zelaya MA chart prep 02/23/2024 Orders Only [address] [address] Bradford Edge ANP Primary osteoarthritis involving multiple joints (Primary Dx); Peripheral neuropathic pain 02/23/[address] [address] Tiny Bee MA DME from [facility] 02/20/2024 Orders Only GENERIC EXTERNAL DATA DEPARTMENT Provider, Generic External Data 02/17/2024 4:20 PM EST Office Visit [facility] [address] [place] [address] MD Constipation, unspecified constipation type (Primary Dx); Incomplete defecation 02/17/[address] [address] Bradford Edge ANP Nurse Triage 02/16/[address] [address] Bradford Edge ANP 02/15/[address] [facility] [address] [place] [address] Tiny Bee MA DME from [facility] from Last 3 Months Immunizations Name Administration [...] 02/02/2024 5:33 PM EST Plan of Treatment Upcoming Encounters Date Type Department Care Team (Late st Contact Info) Description 06/17/2024 9:00 AM EDT Office Visit [facility] [address] [place], [place] [phone] Bradford Edge, ANP [address] [place], [place] [phone] Health Maintenance Due Date Last Done Comments [...] 05/15/2022, 07/06/2020, 06/08/2020 Influenza Vaccine (#1) 2023 , 03/04/2021, 02/07/2020, Additional history exists Diabetes: Foot Exam 01/03/2024 01/02/2023, 01/02/2023, 01/02/2023, Additional history exists Diabetes: Hemoglobin A1C 07/21/2024 025, 12/31/2023, 10/06/2023, Additional history exists Depression Screening 12/30/2024 12/31/2023, 12/31/19 24 SDOH Screening 12/30/2024 12/31/2023 Alcohol/Substance Use Screening 04/22/2025 04/22/2024 Tobacco Screening 04/22/2025 04/22/2024 Colonoscopy 09/05/2026 09/05/2021 Colorectal Cancer Screening 09/05/2026 DTaP/Tdap/Td Vaccines (4 - Td or Tdap) 12/04/2033 12/05/2023, 05/05/2023, 10/06/2011, Additional history exists Hepatitis A Vaccines Completed 08/17/2017, 04/11/19 17 Hepatitis B Vaccines Completed 08/17/2017, 02/03/2017, 09/24/2016, Additional history exists Zoster Vaccines Completed 03/08/2019, 02/27, 12/29/2018, Additional history exists Pneumococcal Vaccine: 50+ Years Completed 07/01/2023, 11/07/2014, 07/27/2014, Additional history exists [...] EST POTASSIUM Routine 02/20/2024 8:58 PM EST HM COLONOSCOPY Routine 09/05/2021 11:04 [...] PM EST Narrative 04/22/2024 3:51 PM EST ?[facility] ?[address] ?[place] [address] ?XRay Report ? Signed ? Patient: Washburne,Vikki J ?MR#: [id number] ?? [id number] ? : 1960 ?Acct:[id number] ? Age/Sex: 64 / F ?ADM Date: 01/24/25 ? Loc: HO.HHCX ? Attending Dr: Bradford Edge CANNON FIRE DIRECTION SPECIALIST ? Ordering Physician: BRADFORD EDGE NP ?? Date of Service: 04/22/24 ?? Procedure(s): XR thoracic spine 2V ?? Accession Number(s): [id number] ? cc: BRADFORD EDGE NP ? EXAMINATION: [...] DD/ 1525 ? TD/TT: 04/22/24 1538 ? Clinical Coordinator: ? Procedure Note Ruchi Holder - 04/22/[address] [address] XRay Report Signed Patient: Vikki Willis JMR#: [id number] : 1960cct:[id number] Age/Sex: 64 / FADM Date: 04/22/24 Loc: HO.HHCX Attending Dr: Bradford Edge NP Ordering Physician: BRADFORD EDGE NP Date of Service: 04/22/24 Procedure(s): XR thoracic spine 2V Accession Number(s): [id number] cc: BRADFORD EDGE NP EXAMINATION: XR THORACIC [...] 04/22/24 1548 DD/ 1525 TD/TT: 04/22/24 1538 Clinical Coordinator: [facility] Edge ANP IMG XR PROCEDURES Final Result * POCT HGB A1C (04/22/2024 3:06 PM EST) [facility] Hemoglobin A1C 5.2 4.0 - 6.0 % QC Media Lot # [id number] Lot# Expiration Date Blood 04/22/2024 3:06 PM EST Bradford Edge ANP POINT OF CARE TEST ENTER/EDIT OR DERABLES Final Result * POCT Glucose (04/22/2024 3:06 PM EST) Pathologist [facility] Glucose Blood, POC 159 60 - 200 mg/dL QC Media Lot # [id number] Lot# Expiration Date ,025 Blood Capillary blood specimen / Unknown 04/22/2024 3:06 PM EST Bradford Edge ANP POINT OF CARE TEST ENTER/EDIT OR DERABLES Edited Result - Final * (ABNORMAL) CBC auto differential (03/15/2024 11:31 AM EST) [facility] White Blood Count 3.9(L) 4.8 - 10.8 X10*3/uL [facility] Red Blood Count 3.16(L) 4.20 - 5.50 X10*6/uL [facility] Hemoglobin 8.6(L) 12.0 - 16.0 g/dl [facility] Hematocrit 26.6(L) 37.0 - 47.0 % [facility] Mean Corpuscular Volume 84.2 80.0 - 98.0 fL [facility] Mean Corpuscular Hemoglobin 27.2 27.0 - 33.0 pg [facility] Mean Corpuscular HGB Conc 32.3 31.0 - 35.0 g/dl [facility] Red Cell Distribution Width 15.9 11.0 - 16.0 % [facility] Platelet Count 193 160 - 400 X10*3/uL [facility] Mean Platelet Volume 9.5 9.4 - 12.3 fL [facility] Neutrophils Percent Auto 50.5 45 - 73 % [facility] Imm Gran Pct Auto 0.5(H) 0.0 - 0.4 % [facility] Lymphocytes Percent Auto 40.5(H) 20 - 40 % [facility] Monocytes Percent Auto 8.0 2 - 11 % [facility] Eosinophils Percent Auto 0.0 0 - 4 % [facility] Basophils Percent Auto 0.5 0 - 2 % [facility] NRBC Pct Auto 0.0 0.0 - 0.2 /100WBC [facility] Neutrophils Absolute Auto 2.0 2.0 - 8.3 x10*3/uL [facility] Imm Gran Abs Auto 0.02 0.00 - 0.03 X10*3/uL [facility] Lymphocytes Absolute Auto 1.6 1.2 - 4.9 X10*3/uL [facility] Monocytes Absolute Auto 0.3 0.1 - 1.2 X10*3/uL [facility] Eosinophils Absolute Auto 0.0 0.0 - 0.4 X10*3/uL [facility] Basophils Absolute Auto 0.0 0.0 - 0.2 X10*3/uL [facility] NRBC Abs Auto 0.000 0.0 - 0.012 X10*3/uL [facility] 03/15/2024 11:3 1 AM EST 03/15/2024 11:39 AM EST us Generic External Data Provider LAB BLOOD ORDERAB LES Final Result [facility] [address] [place] [address] [phone] * Magnesium (03/15/2024 11:31 AM EST) Only the most recent of2 resultswithin the time period is included. Pathologist [facility] Magnesium 1.6 1.6 - 2.6 mg/dL [facility] 03/15/2024 11:3 1 AM EST 03/15/2024 11:39 AM EST Generic External Data Provider LAB BLOOD ORDERAB LES Final Result Performing Organization Address City/[facility]/ZIP Co de Phone Number [facility] [address] [place] [phone] * Lipase (03/15/2024 11:31 AM EST) Pathologist [facility] Lipase 27 8 - 78 U/L [facility] 03/15/2024 11:3 1 AM EST 03/15/2024 11:39 AM EST [employer] External Data Provider LAB BLOOD ORDERAB LES Final Result Performing Organization Address [facility] Co de Phone Number [facility] [address] [place] [phone] * (ABNORMAL) Comprehensive Metabolic Panel (03/15/2024 11:31 AM EST) Pathologist [facility] Sodium 138 135 - 145 mmol/L [facility] Potassium 3.0(L) 3.3 - 5.1 mmol/L [facility] Chloride 107 96 - 108 mmol/L [facility] Carbon Dioxide 23 22 - 29 mmol/L [facility] Anion Gap 11(L) 12 - 20 [facility] Urea Nitrogen (BUN) 6(L) 9 - 16 mg/dL [facility] Creatinine, Serum 0.74 0.5 - 1.4 mg/dL [facility] Creatinine Clr Calc Pharmacy 58.7 [facility] Comment:Provided height and weight: 147.32 cm,58.06 kg.eGFR (calculated from the MDRD study equation) and eCrCl(calculated from the Cockcroft-Gault equation) are based ondifferent parameters and may not yield comparable results.If eCrCl result is absurd, please check patient'sheight/weight. Estimated Glomerular Filt Rate >60 [facility] Comment:Chronic Kidney Disea se: Estimated GFR < 60 mL/min/1.18z9Mdpxum Kidney Disease: Estimated GFR < 15 mL/min/1.73m2 Glucose 88 60 - 115 mg/dL [facility] Calcium 8.9 8.4 - 10.2 mg/dL [facility] Bilirubin, Total 0.2 0.0 - 1.0 mg/dL [facility] Aspartate Amino Transferase 20 5 - 31 U/L [facility] Alanine Aminotransferase <6 0 - 31 U/L [facility] Total Protein 6.7 6.5 - 8.0 g/dL [facility] Albumin Level 3.1(L) 3.5 - 5.0 g/dL [facility] Alkaline Phosphatase 93 39 - 117 U/L [facility] 03/15/2024 11:3 1 AM EST 03/15/2024 11:39 AM EST us Generic External Data Provider LAB BLOOD ORDERAB LES Final Result Performing Organization Address [facility] de Phone Number [facility] [address] [place] [phone] * (ABNORMAL) Hemoglobin and Hematocrit (03/14/2024 1:54 PM EST) Hemoglobin 8.6(L) 12.0 - 16.0 g/dl [facility] Hematocrit 26.5(L) 37.0 - 47.0 % [facility] Blood Venous blood specimen / Unknown 03/14/2024 1:54 PM EST 03/14/2024 4:23 PM EST us Bradford Edge [facility] LAB BLOOD ORDERABLES Final Resul t Performing Organization Address City/[facility] Co de Phone Number [facility] [address] [place] [phone] * (ABNORMAL) Basic Metabolic Panel (03/14/2024 1:54 PM EST) Sodium 136 135 - 145 mmol/L [facility] Potassium 2.7(LL) 3.3 - 5.1 mmol/L [facility] Comment:Critical value for t est(s):POTS Results called to and readback by: DR. FARRIS Person calling:FERMÍN Date: 03/14/24Time: 1815 Chloride 105 96 - 108 mmol/L [facility] Carbon Dioxide 23 22 - 29 mmol/L [facility] Anion Gap 11(L) 12 - 20 [facility] Urea Nitrogen (BUN) 8(L) 9 - 16 mg/dL [facility] Creatinine, Serum 0.86 0.5 - 1.4 mg/dL [facility] Estimated Glomerular Filt Rate >60 [facility] Comment:Chronic Kidney Disea se: Estimated GFR < 60 mL/min/1.86e8Vmgfih Kidney Disease: Estimated GFR < 15 mL/min/1.73m2 Glucose 102 60 - 115 mg/dL [facility] Calcium 8.3(L) 8.4 - 10.2 mg/dL [facility] Blood Venous blood specimen / Unknown 03/14/2024 1:54 PM EST 03/14/2024 4:23 PM EST Bradford Edge [facility] LAB BLOOD ORDERABLES Final Resul t [facility] [address] [place] [phone] * CT Abdomen Pelvis w/ Contrast (02/20/2024 11:15 PM EST) Anatomical Region Laterality Modality Body, Pelvis, Abdomen Computed T omography 02/20/2024 11:1 5 PM EST Narrative 02/21/2024 12:55 AM EST ? [place] [facility] ?[address] ?[place] [address] ? CT Scan Report ? Signed ? Patient: Washburne,Vikki J ?MR#: [id number] ?? [id number] ? : 1960 ?Acct:[id number] ? Age/Sex: 63 / F ?ADM Date: 02/20/24 ? Loc: HO.ED ? Attending Dr: ? Ordering Physician: Kenyon Montgomery MD ?? Date of Service: 02/20/24 ?? Procedure(s): CT abdomen pelvis w IV con ?? Accession Number(s): [id number] ? cc: BRADFORD EDGE NP; Kenyon Montgomery [...] in OV> ? 02/21/24 0052 ? DD/ ? TD/TT: 02/20/24 1095 ? Clinical Coordinator: EF ? Procedure Note Donotuseinterpreter, Image - 02/21/[address] [address] [address] Scan Report Signed Patient: Vikki Willis JMR#: [id number] : 1Acct:[id number] Age/Sex: 63 / FADM Date: 02/20/24 Loc: HO.ED Attending Dr: Ordering Physician: Kenyon Montgomery MD Date of Service: 02/20/24 Procedure(s): CT abdomen pelvis w IV con Accession Number(s): [id number] cc: BRADFORD EDGE NP; Kenyon Montgomery MD [...] Moffett MD in OV> 02/21/24 0052 DD/ 2315 TD/TT: 02/20/24 2325 Clinical Coordinator: EF [facility] External Provider IMG CT PROCEDURES Final Result * (ABNORMAL) Urinalysis, Complete, with Reflex to Culture (02/20/2024 10:39 PM EST) Color Urine Yellow [facility] Appearance Urine Cloudy [facility] PH 6.0 5.0 - 9.0 [facility] Glucose Urine UA Negative Negative mg/dL [facility] Urine Blood Large (3+)(A) Negative [facility] Specific [place] - Urine 1.010 1.005 - 1.025 [facility] Urine Protein Trace Neg-Trace mg/dL [facility] Urine Ketones Negative Negative mg/dL [facility] Nitrite Urine Negative Negative [facility] Leukocyte Esterase Urine Large (3+)(A) Negative [facility] RBC Urine 6-10(A) 0 - 2 /HPF [facility] Urine WBC >50(A) 0 - 5 /HPF [facility] Urine Squamous Epithelial Cell 6-10 0 - 2 /HPF [facility] Urine Bacteria 1+ None Seen [facility] Hyaline Casts, Urine 0-2 0 - 2 /LPF [facility] 02/20/2024 10:3 9 PM EST 02/20/2024 10:41 PM EST Narrative [facility] - 02/20/2024 10:48 PM EST [id number], [employer] us Generic External Data Provider LAB URINE ORDERAB LES Final Result Performing Organization Address [facility]/ZIP Co de Phone Number [facility] [address] [place] [phone] * (ABNORMAL) Potassium (02/20/2024 8:58 PM EST) Potassium 2.0(LL) 3.3 - 5.1 mmol/L [facility] Comment:Critical value for t est(K): Results called to and readback by: FITO Person calling: MAT Date: 02/20/24Time: 2111 02/20/2024 8:58 PM EST 02/20/2024 8:59 PM EST us Generic External Data Provider LAB BLOOD ORDERAB LES Final Result Performing Organization Address [facility]/ZIP Co de Phone Number [facility] [address] [place] [phone] * Hm Colonoscopy (09/05/2021 11:04 AM EDT) Historical Provider HEALTH MAINTENANCE Final Result * 3D DIGITAL UBALDO SCR MAMMO 1 (06/07/2019 12:30 PM EDT) Anatomical Region Laterality Modality Breast Bilateral Mammography 06/07/2019 12:3 0 PM EDT Narrative 06/07/2019 12:31 PM EDT Refer to the Notes tab for result details [facility] Procedure: 3D DIGITAL UBALDO SCR MAMMO 1 Procedure Note Provider, Rubina, - 06/21/2022 Refer to the Notes tab for result details [facility] Procedure: 3D DIGITAL UBALDO SCR MAMMO 1 Inez Dewitt NP IMG BI PROCEDURES Final Result * HPV mRNA E6/E7 (10/30/2016 3:00 PM EDT) HPV mRNA E6/E7 Not Detected NOT DETECTED [facility] Comment: This test was performed using the APTIMA(R) HPV Assay ([employer] This assay detects E6/E7 viral messenger RNA (mRNA) from 14 high-risk HPV types (16,18,31,33,35,39,45,51, 52,56,58,59,66,68). For additional information please refer to: http://education.Tipstar/faq/CIF427n7 (This link is being provided for informational/ educational purposes only.) Test Performed by [employer], [employer] - formerly [facility] [facility], [address] [place] [address] Elmo Foreman M.D., Ph.D., Director of Laboratories , [facility] [id number] Please note: ??Effective 12/10/2015, HPV testing will be performed using [employer]'s APTIMA test which targets mRNA. Detecting mRNA instead of DNA, as in older methods, offers significant improvements in specificity. 10/30/2016 3:0 0 PM EDT Inez Dewitt NP HISTORICAL/NON ORDERABLE LABS Fi nal Result [facility] [address] from Last 3 Months or Most Recently Relevant to Health Maintenance Insurance [facility] [address] [place] [phone] Care Teams Public Address System Mechanic Relationship Specialty Start Date End Date Bradford Edge ANP [address] [place] [phone] PCP - General Family Medicine 11/16/20
--- OUTSIDE RECORDS SUMMARY | 2024-05-17 10:58 | XMS_ITS | Encounter Summary ---
Author Organization [employer] Address [address] [facility] [address] [place] [address] Care Team Providers Care Film Developing Machine Operator Name Role Phone April Dave Primary Care Provider Reason for Visit * Reason Onset Date Comments chart prep 04/22/2024 Encounter Details Date Type Department Care Team ([facility] st Contact Info) Description 04/22/2024 Telephone [facility] [address] [place] [address] Miesha Zelaya MA chart prep Social History [...] Description 06/17/2024 9:00 AM EDT Office Visit [facility] [address] [place] [phone] April Dave ANP [address] [place] [address] documented as of this encounter Visit Diagnoses Not on filedocumented in this encounter Additional Health Concerns Assessment Noted Time PHQ-9 Depression Total Score: 1 12/31/19 24 10:03 AM EDT documented as of this encounter Care Teams Film Developing Machine Operator Relationship Specialty Start Date End Date April Dave ANP [address] [place] [address] PCP - General Family Medicine 11/16/20 documented as of this encounter
== END 2024-05-17 10:05 | disposition home or self-care (01) ==
LOC: HO.HOSX 10:04
PROVIDERS: Visit Provider Orthopaedic Surgery
DX: Z13.89 Encounter for screening for other disorder (principal)

== ENCOUNTER 2024-05-25 10:32 | Outpatient (RCR) | payer OTHER, SELFPAY | END 2024-06-22 11:46 | disposition home or self-care (01) | LOC: HO.PT 10:32 | PROVIDERS: PCP Nurse Practitioner Primary Care; Visit Provider Nurse Practitioner Primary Care | DX: M54.9 Dorsalgia, unspecified (principal) | CPT/HCPCS: 97112; 97162 ==

== ENCOUNTER 2024-06-14 09:34 | Outpatient (REF) | payer OTHER, SELFPAY | END 2024-06-14 09:35 | disposition home or self-care (01) | LOC: HO.HOSX 09:34 | PROVIDERS: Visit Provider Orthopaedic Surgery | DX: Z13.89 Encounter for screening for other disorder (principal) ==

== ENCOUNTER 2024-06-14 16:37 | Outpatient (REF) | payer OTHER, SELFPAY | END 2024-06-14 16:38 | disposition home or self-care (01) | LOC: HO.HHCLNP 16:37 | PROVIDERS: Visit Provider Emergency Medicine | DX: R19.8 Other specified symptoms and signs involving the digestive system and abdomen (principal) | CPT/HCPCS: 87101; 87102; 87220 ==

== ENCOUNTER 2024-06-15 09:11 | Outpatient (AMB) | payer OTHER, SELFPAY ==
--- NOTE | 2024-06-15 09:18 | MHC.OFFVIS ---
Vital Signs 06/15/24 09:21 Height 4 ft 10 in Weight 128 lb BMI 26.7 Intake Visit Reasons: O/V- R hand surgical consult Intake Note: Vikki is a 63 year old left hand dominant female who presents today for surgical consultation of her right hand She is S/P right radial wrist abscess I&D and right dorsal hand abscess I&D, 12/06/[address] Moreno after a cat bite. Last seen with Masoud Tim who wanted patient to be re-evaluated and discuss surgical intervention for potential extensor tendon injury of the right thumb. Currently states she has stiffness in her thumb and is not able to move it. Allergies hydrocodone [From Vicodin] Allergy (Mild, Verified 06/15/24 09:24) ITCHING SHANAE Inhibitors [SHANAE INHIBITORS] Allergy (Unknown, Verified 06/15/24 09:24) UNKNOWN ENVIROMENTAL Allergy (Mild, Uncoded 06/15/24 09:24) HAYFEVER lysol wipes Allergy (Mild, Uncoded 06/15/24 09:24) Hives avacado Allergy (Unknown, Uncoded 06/15/24 09:24) NEPHROPATHY HPI HPI O/V- R hand surgical consult: Details: Vikki is a 64 year old right hand dominant woman who returns to discuss her right thumb tendon injury. She was seen for a right hand I&D due to a cat bite, DOS: 12/06/23. She was admitted for IV Abx following surgery. She complains of an inability to fully move her right thumb since her surgery. She is able to bring her thumb down to a fist, but she is not able to fully extend her thumb. She says her infection cleared up following her surgery, and she denies any symptoms of infection today. She has multiple medical comorbidities, including Diabetes, heart failure, COPD, CKD III, and is a smoker. She says her Diabetes is very well controlled with lifestyle changes and her PCP recently discontinued her medications. She is concerned that she is losing weight unintentionally over the last few months. She says she has an appointment with her PCP soon and is planning on a referral to a specialist concerning her weight loss. [facility] Medical History Seizures Syncope History of TIA (transient ischemic attack) CHF (congestive heart failure) Essential hypertension Hyperlipidemia Type 2 diabetes mellitus with chronic kidney disease Chronic kidney disease, stage 3 Anemia COPD (chronic obstructive pulmonary disease) Asthma JANET (obstructive sleep apnea) Nicotine dependence, cigarettes, uncomplicated Restless leg syndrome Obesity Tubular adenoma of colon IBS (irritable bowel syndrome) Constipation Primary osteoarthritis of right knee Osteoarthritis Right knee pain History of migraine Surgical History History of appendectomy History of cholecystectomy History of esophagogastroduodenoscopy (EGD) History of colonoscopy History of total left knee replacement (TKR) History of arthroscopy of left knee History of arthroscopy of right knee History of elbow surgery History of surgery on wrist History of carpal tunnel release of both wrists History of lumpectomy of right breast Family History Father Hx of gout Diabetes Mother Diabetes Daughter Pre-diabetes Brother Cancer Social History Household Members: None Housing: Apartment Do you presently have visiting nurse or other home services: Yes Alcohol intake: never Patient Tobacco Use Status: Current everyday Tobacco user Tobacco use type: Cigarette Cigarette Packs Per Day: 1 Cigarettes Per Day: 20.0 Years Smoked: onset 16yo, 3ppd x 47yrs, now 2ppd, >100pyh e-Cigarette/Vaping Use: Never Used Second Hand Smoke Exposure: No Advance Directives Date on File: 02/18/21 service: No Current occupational status: disabled Current occupation: left hand dominant Review of Systems Const All systems reviewed & are unremarkable except as noted in HPI and below Physical Exam Vital Signs: BMI result Body Mass Index 26.7 Const General: cooperative, healthy appearing and no acute distress Orientation/consciousness: patient oriented x3 HEENT Head: Yes normocephalic and Yes atraumatic Eyes EOM: EOMs intact bilaterally Resp Effort & Inspection: normal respiratory effort and able to speak in complete sentences Cardio Jugular venous distension: no JVD Skin General skin exam: turgor normal Rashes: no rashes Neuro General: patient oriented x3 Extrem Other: Evaluation of Right Upper Extremity: The patient is alert, oriented, and in no acute distress Neuro: Median, Ulnar, Radial nerves motor and sensory intact and sensation is normal to the tips of all digits Vascular: Cap refill brisk ROM: She was able to bring all her fingers closed to a fist She was able to oppose her thumb to all digits She is unable to extend her thumb at the IP or MCP joints. Unable to elevate thumb off of the table when hand placed flat. I can passively extend the thumb, however she is starting to have some discomfort when doing so. General: No Ecchymosis. No swelling, Erythema or evidence of infection. Radiographs: 3 views of the right hand were taken and viewed by me today in clinic. They show no fractures, dislocations, or foreign bodies. Some early basal joint arthritis. Psych Appearance: grossly normal Affect: normal affect Attitude: cooperative Assessment & Plan Assessment & Plan (1) Type 2 diabetes mellitus with chronic kidney disease: Code(s): E11.22 - Type 2 diabetes mellitus with diabetic chronic kidney disease Category: Medical (2) COPD (chronic obstructive pulmonary disease): Code(s): J44.9 - Chronic obstructive pulmonary disease, unspecified Category: Medical (3) Chronic kidney disease, stage 3: Code(s): N18.30 - Chronic kidney disease, stage 3 unspecified Category: Medical (4) Nicotine dependence, cigarettes, uncomplicated: Comment: (current smoker- onset 16yo, 3ppd x 47yrs, now 2ppd, >100pyh) Code(s): F17.210 - Nicotine dependence, cigarettes, uncomplicated Category: Medical (5) Heart failure: Code(s): I50.9 - Heart failure, unspecified Category: Medical (6) History of TIA (transient ischemic attack): Comment: (Rt facial droop 12/29/2015; Rt facial droop 10/11/2016; Lt facial droop/weakness 08/22/2017) Code(s): Z86.73 - Personal history of transient ischemic attack (TIA), and cerebral infarction without residual deficits Category: Medical (7) Ruptured extensor tendon of hand or wrist: Code(s): S66.819A - Strain of other specified muscles, fascia and tendons at wrist and hand level, unspecified hand, initial encounter Category: Medical Plan Assessment & Plan: 1. Right thumb extensor pollicis longus tendon rupture Patient status post I and D for hand infection following cat bite DOS: 12/06/23 2. Right hand cat bite S/P radial & dorsal I&D DOS: 12/06/23 Infection completely resolved I educated her about this condition I had a long discussion with her concerning operative treatment options, including a tendon transfer surgery She would benefit from an EIP to EPL tendon transfer. She finds this limitation very bothersome and is interested in having this fixed. The patient would like to proceed with surgery Unfortunately, the patient has a number of significant medical conditions, and has explained that she has been experiencing unintentional weight loss. It sounds like her primary care physician is beginning to investigate possible causes of her unintended weight loss. For this reason we are going to delay signing her up for operative treatment while her physician investigate this issue. I recommend she work on passive & active thumb ROM exercises at home I referred her to OT hand therapy to have a custom thumb splint made, which will hold her thumb in extension, to be worn for 6-8 hours daily to prevent development of flexion contracture. She will follow up in 2-3 months to see how she is doing, prior to scheduling surgery. This should be a 30 minute appointment. She denies blood thinners, asthma She has CKD III, COPD, Hx of heart failure, and is a smoker. She says she has cut her smoking down to 1+ packs a day, and uses a nicotine inhaler. She says she is in the process of slowly quitting. Discuss possible cardiac & pulmonology clearance with anesthesia. Due to her unintentional weight loss, consider nutritional consult. She is a Diabetic, and does not know her most recent HgA1c. She says this is well controlled with lifestyle choices, and her PCP has taken her off her Diabetes medications. Scribed for Lupe Moreno MD by Solo Calderon, certified medical coder, on 06/15/24 at 9:30 AM, EST. Orders: Orders XR hand RT min 3V Today M79.641 - Pain in right hand OT Evaluation and Treatment Today S66.819A - Strain of other specified muscles, fascia and tendons at wrist and hand level, unspecified hand, initial encounter Coding Level of Care Code Est Pt Level 4 (93789) Diagnoses Type 2 diabetes mellitus with chronic kidney disease E11.22 COPD (chronic obstructive pulmonary disease) J44.9 Chronic kidney disease, stage 3 N18.30 Nicotine dependence, cigarettes, uncomplicated F17.210 Heart failure I50.9 History of TIA (transient ischemic attack) Z86.73 Ruptured extensor tendon of hand or wrist P00.797I
[2024-06-15 09:21] VITALS: BMI 26.7
== END 2024-06-15 09:45 | disposition home or self-care (01) ==
LOC: HO.HOS 09:12
PROVIDERS: PCP Nurse Practitioner Primary Care; Visit Provider Orthopaedic Surgery
DX: S66.811D Strain of other specified muscles, fascia and tendons at wrist and hand level, right hand, subsequent encounter (principal); M66.241 Spontaneous rupture of extensor tendons, right hand; W55.01XD Bitten by cat, subsequent encounter; E11.22 Type 2 diabetes mellitus with diabetic chronic kidney disease; J44.9 Chronic obstructive pulmonary disease, unspecified; N18.30 Chronic kidney disease, stage 3 unspecified; F17.210 Nicotine dependence, cigarettes, uncomplicated; I50.9 Heart failure, unspecified; Z86.73 Personal history of transient ischemic attack (TIA), and cerebral infarction without residual deficits
CPT/HCPCS: 99214

== ENCOUNTER 2024-06-15 09:11 | Outpatient (REF) | payer OTHER, SELFPAY ==
--- NOTE | ~2024-06-15 | XR_ITS ---
EXAMINATION: XR HAND 3 OR MORE VIEWS RIGHT HISTORY: M79.641 - Pain in right hand COMPARISON: Comparison is made with the prior examination dated 12/05/2023. FINDINGS: Three views of the right hand are submitted. The bones are osteopenic. There is no fracture or dislocation. The joint spaces are preserved. The soft tissues are unremarkable. XR/XR hand RT min 3V IMPRESSION: Osteopenia. Otherwise unremarkable examination of the right hand. Electronically signed by: Jose Grissom MD 06/15/2024 01:24 PM EDT
== END 2024-06-15 09:12 | disposition home or self-care (01) ==
LOC: HO.HOSX 09:11
PROVIDERS: PCP Nurse Practitioner Primary Care; Visit Provider Orthopaedic Surgery
DX: M79.641 Pain in right hand (principal); S66.811A Strain of other specified muscles, fascia and tendons at wrist and hand level, right hand, initial encounter; M25.641 Stiffness of right hand, not elsewhere classified; E11.22 Type 2 diabetes mellitus with diabetic chronic kidney disease; N18.30 Chronic kidney disease, stage 3 unspecified; I50.9 Heart failure, unspecified; F17.210 Nicotine dependence, cigarettes, uncomplicated; J44.9 Chronic obstructive pulmonary disease, unspecified; Z86.73 Personal history of transient ischemic attack (TIA), and cerebral infarction without residual deficits; Z98.890 Other specified postprocedural states
CPT/HCPCS: 73130; 99212

== ENCOUNTER → 2024-06-15 09:15 | Outpatient (BNV) | payer OTHER, SELFPAY | PROVIDERS: PCP Nurse Practitioner Primary Care; Visit Provider Radiology Diagnostic Radiology | DX: M79.641 Pain in right hand (principal) | CPT/HCPCS: 73130 ==

== ENCOUNTER 2024-06-27 16:51 | Outpatient (REF) | payer OTHER, SELFPAY ==
--- OUTSIDE RECORDS SUMMARY | 2024-06-27 18:10 | XMS_ITS | Encounter Summary ---
Author Organization [employer] Address [address] [place] [address] Care Team Providers Care Residential Real Estate Agent Name Role Phone April Dave Primary Care Provider [phone] Eduarda Krishnan MD Unavailable [phone] June Unavailable Reason for Visit * Reason Comments Med Refill Encounter Details Date Type Department Care Team (Late st Contact Info) Description 06/27/2024 Refill [facility] [address] [place] [address] April Dave ANP [address] [place] [address] Diabetic nephropathy associated with type 2 diabetes mellitus (CMS/HCC) Social History Tobacco Use Types Packs/Day [...] Access Q2 Not on file 12/31/2023 Comments No Sex and Gender Information Value Date Recorded [...] diabetes mellitus (CMS/HCC) documented in this encounter Additional Health Concerns Assessment Noted Time PHQ-9 Depression Total Score: 1 12/31/19 24 10:03 AM EDT documented as of this encounter Care Teams Residential Real Estate Agent Relationship Specialty Start Date End Date April Dave ANP [address] [place] [address] PCP - General Family Medicine 11/16/20 Eduarda Krishnan MD [address] [place] [address] Hematology and Oncology 06/01/24June [address] [place] [address] 06/01/24 documented as of this encounter
--- OUTSIDE RECORDS SUMMARY | 2024-06-27 18:10 | XMS_ITS | Clinical Summary ---
Author Organization [employer] Address 75 [facility] 7t [place] [address] Care Team Providers Care Cloud Security Architect Name Role Phone Bradford Edge AARON Primary Care Provider [phone] Eduarda Krishnan MD Unavailable [phone] June Unavailable Allergies Active Allergy Reactions Criticality Noted Date [...] as needed for hypoglycemia (less than 70mg/ml) 022 Active imipramine (Tofranil) 25 MG tablet Take [...] unspecified whether stage 3a or 3b CKD (CMS/[facility]) 1 kit See administration instructions. Use for [...] hours as needed for wheezing. 4 g 023 Active Misc. Devices (Pulse Oximeter For Finger) miscIndications :Moderate persistent asthma without complication 1 each 2 times daily. 1 each 023 Active Diclofenac Sodium 1 % gelIndications: Acute pain of left shoulder APPLY 2 GRAMS TO AFFECTED AREA(S) TWICE DAILY 100 g 2 023 Active lidocaine (Lidoderm) 5 % patchIndication [...] USE FOUR TIMES DAILY NEEDED 100 each 11 024 Active cetirizine (ZyrTEC) 10 MG tablet TAKE 1 TABLET BY MOUTH EVERY MORNING 90 tablet 3 024 Active Aspirin Low Dose 81 MG EC tablet TAKE 1 TABLET BY MOUTH AT BEDTIME 90 tablet 3 Active D3 Super Strength 50 MCG (2000 UT) capsule TAKE 1 CAPSULE BY MOUTH EVERY MORNING 90 capsule 3 024 Active folic acid (Folvite) 1 MG tabletIndicatio [...] BY MOUTH EVERY EVENING 90 tablet 1 024 Active sertraline (Zoloft) 50 MG tabletIndicatio ns:Depressive disorder TAKE 1 TABLET BY MOUTH EVERY MORNING 90 tablet 1 024 Active cyanocobalamin (Vitamin B-12) 1000 MCG tablet Take 1 tablet by mouth in the morning. 024 Active senna (Senokot) 8.6 MG tablet Take [...] IN THE EVENING 60 tablet 025 Active fluticasone (Flonase) 50 MCG/ACT nasal sprayIndication s:Allergic rhinitis, unspecified seasonality, unspecified trigger INSTILL 2 SPRAYS IN EACH NOSTRIL ONCE DAILY 16 g 5 025 Active clotrimazole (Lotrimin) 1 % cream Apply topically 2 times daily. 30 g 1 025 Active fluticasone (Flonase) 50 MCG/ACT nasal sprayIndication s:Allergic rhinitis, unspecified seasonality, unspecified trigger INHALE 2 SPRAYS IN EACH NOSTRIL ONCE DAILY 16 g 5 024 2024 Discontinued doxycycline (Vibramycin) 100 MG capsule Take 1 capsule (100 mg) by mouth 2 times daily for 7 days. Take with at least 8 ounces (large glass) of water, do not lie down for 30 minutes after 14 capsule 025 2024 cefadroxil (Duricef) 500 MG capsule Take 1 capsule (500 mg) by mouth 2 times daily for 7 days. 14 capsule 025 2024 Active Problems Problem Noted Date Diagnosed Date [...] antibiotic. -pt agrees with the plan Encounters Date Type Department Care Team Description 06/27/2024 9:30 AM EDT Procedure Visit [facility] [address] [place] [address] Jayda Yeboah CNM Cervical cancer screening (Primary Dx); Menopause 06/27/[address] [facility] [address] [place] [address] Bradford Edge ANP Diabetic nephropathy associated with type 2 diabetes mellitus ([facility]) 06/27/2024 Travel 06/20/[address] [address] Bradford Edge ANP Appointment Request 06/17/2024 9:00 AM EDT Office Visit [facility] [place] [address] Bradford Edge ANP Abnormal weight loss (Primary Dx); Chronic left shoulder pain; Left arm weakness; Osteopenia, unspecified location 06/17/[address] [address] Emily Pitts, NIGEL Interoffice Coordination 06/17/2024 Travel 06/15/2024 Orders Only [facility] External Provider, [facility] 06/14/2024 9:40 AM EDT [facility] [address] [address] James Farris MD Umbilicus discharge (Primary Dx) 06/14/2024 Orders Only [facility] [address] [address] James Farris MD 06/14/2024 Travel 06/02/[address] [address] Bradford Edge ANP Allergic rhinitis, unspecified seasonality, unspecified trigger 06/01/[address] [address] Bradford Edge ANP Referral 05/27/[address] [address] Bradford Edge ANP Med Refill 05/10/2024 Refill [facility] [address] MD Restless legs 05/02/[address] [address] Bradford Edge ANP Appointment Request; Referral 04/27/[address] [address] Bradford Edge ANP Referral; Patient Relations Manager 04/26/[address] [address] Aicha Venegas RN Results 04/22/2024 2:15 PM EST Office Visit [facility] [address] [place] [address] Bradford Edge ANP Diabetic nephropathy associated with type 2 diabetes mellitus ([facility]) (Primary Dx); Mid back pain; Iron deficiency anemia, unspecified iron deficiency anemia type; Hypokalemia 04/22/2024 Travel 04/22/[address] [facility] [address] [place] [address] Miesha Zelaya MA chart prep 04/13/[address] [facility] [address] [place] [address] Aicha Venegas RN Medication Question 04/12/[address] [facility] [address] [place] [phone] Bradford Edge ANP 04/12/[address] [facility] [address] [place], [place] [phone] Bradford Edge ANP 04/11/[address] [facility] [address] [place] [address] Bradford Edge ANP Seizure disorder ([facility]) from Last 3 Months Immunizations Name Administration [...] 12/05/2023,10/06/2011 Zoster, Recombinant 03/08/2019,12/29/2018 Zoster, live 03/08/2019,12/29/2018 Family History Medical History Relation Name Comments Esophageal cancer Brother other Daughter acidental from choking Relation Name Status Comments Brother Daughter Social History Tobacco Use Types Packs/Day Years [...] Sign Reading Time Taken Comments Blood Pressure 121/67 06/27/2024 9:28 AM EDT Pulse 110 06/27/2024 9:28 AM EDT Temperature 36.4 ??C (97.6 ??F) 06/27/2024 9:28 AM ED T Respiratory Rate 20 06/27/2024 9:28 AM EDT Oxygen Saturation 96% 06/27/2024 9:28 AM EDT Inhaled Oxygen Concentration - - Weight 55.3 kg (122 lb) 06/27/2024 9:28 AM EDT Height 146.5 cm (4' 9.68 ) 06/27/2024 9:28 AM ED T Body Mass Index 25.78 06/27/2024 9:28 AM EDT Plan of Treatment Health Maintenance Due [...] Alcohol/Substance Use Screening 04/22/2025 04/22/2024 Tobacco Screening 06/27/2025 06/27/2024 Colonoscopy 09/05/2026 09/05/2021 Colorectal Cancer Screening 09/05/2026 [...] Name Priority Date/Time Associated Diagnosis Comments XR HAND 3+ VIEWS RIGHT Routine 06/15/2024 9:15 AM EDT CULTURE, FUNGUS, OTHER THAN HAIR, SKIN, BLOOD, W/DELFINA Routine 06/14/2024 10:12 AM EDT XR THORACIC SPINE 2 VIEWS Routine 04/22/2024 3:25 PM EST Mid back pain POCT GLYCATED HEMOGLOBIN, TOTAL Routine 04/22/2024 3:06 PM EST Diabetic nephropathy associated with type 2 diabetes mellitus (CMS/HCC) POCT GLUCOSE Routine 04/22/2024 3:06 PM EST Diabetic nephropathy associated with type 2 diabetes mellitus (CMS/HCC) HM COLONOSCOPY Routine 09/05/2021 11:04 AM EDT BI MAMMOGRAM SCREENING BILATERAL Routine 06/07/2019 12:30 PM EDT ZZZ HISTORICAL HPV MRNA E6/E7 Routine 10/30/2016 3:00 PM EDT from Last 3 Months or Most Recently Relevant to Health Maintenance Results * XR Hand 3+ Views Right (06/15/2024 9:15 AM EDT) Anatomical Region Laterality Modality Upper Extremities, Hand Right Radiogra phic Imaging 06/15/2024 9:15 AM EDT Narrative 06/15/2024 1:28 PM EDT ? [facility] ? [address] ?[place] [address] ?XRay Report ? Signed ? Patient: Lazaro,Vikki J ?MR#: [id number] ?? [id number] ? : 1960 ?Acct:[id number] ? Age/Sex: 64 / F ?ADM Date: 03/19/25 ? Loc: HO.HOSX ? Attending Dr: Lupe Moreno MD ? Ordering Physician: Lupe Moreno MD ?? Date of Service: 06/15/24 ?? Procedure(s): XR hand RT min 3V ?? Accession Number(s): [id number] ? cc: Lupe Moreno MD; BRADFORD EDGE NP ? EXAMINATION: ??XR HAND 3 OR MORE VIEWS RIGHT ? HISTORY: M79.641 - Pain in right hand ? COMPARISON: Comparison is made with the prior examination dated ?? 12/05/2023. ? FINDINGS: ? Three views of the right hand are submitted. ??The bones are osteopenic. ?? There is no fracture or dislocation. ??The joint spaces are preserved. ? The soft tissues are unremarkable. ? XR/XR hand RT min 3V ?? IMPRESSION: ? Osteopenia. Otherwise unremarkable examination of the right hand. ? Electronically signed by: ??Jose Grissom MD ??06/15/2024 01:24 PM EDT ? Dictated By: ?Jose Grissom MD ? Signed By: ?<Electronically signed by Jose Grissom MD in OV> ?06/15/24 1324 ? DD/ 0915 ? TD/TT: 06/15/24 0920 ? Artificial Breast Fabricator: ? Procedure Note Dondereckter, Image - 06/15/2024 [facility] [address] [place] [address] [address] [place] [address] XRay Report Signed Patient: Vikki Willis JMR#: [id number] : 1960cct:[id number] Age/Sex: 64 / FADM Date: 06/15/24 Loc: [facility] Attending Dr: Lupe Moreno MD Ordering Physician: Lupe Moreno MD Date of Service: 06/15/24 Procedure(s): XR hand RT min 3V Accession Number(s): [id number] cc: Lupe Moreno MD; BRADFORD EDGE NP EXAMINATION: XR HAND 3 OR MORE VIEWS RIGHT HISTORY: M79.641 - Pain in right hand COMPARISON: Comparison is made with the prior examination dated 12/05/2023. FINDINGS: Three views of the right hand are submitted. The bones are osteopenic. There is no fracture or dislocation. The joint spaces are preserved. The soft tissues are unremarkable. XR/XR hand RT min 3V IMPRESSION: Osteopenia. Otherwise unremarkable examination of the right hand. Electronically signed by: Jose Grissom MD 06/15/2024 01:24 PM EDT Dictated By: Jose Grissom MD Signed By: <Electronically signed by Jose Grissom MD in OV> 06/15/24 1324 DD/ 0915 TD/TT: 06/15/24 0920 Artificial Breast Fabricator: [facility] External Provider IMG XR PROCEDURES Final Result * XR Thoracic Spine 2 Views (04/22/2024 3:25 PM EST) Anatomical Region Laterality Modality Spine, T-spine Radiographic Steffi ging 04/22/2024 3:25 PM EST Narrative 04/22/2024 3:51 PM EST ?[facility] ?[address] ?[place] [address] ?XRay Report ? Signed ? Patient: Vikki Willis ?MR#: [id number] ?? [id number] ? : 1960 ?Acct:[id number] ? Age/Sex: 64 / F ?ADM Date: 04/22/24 ? Loc: HO.HHCX ? Attending Dr: Bradford Edge NP ? Ordering Physician: BRADFORD EDGE NP ?? Date of Service: 04/22/24 ?? Procedure(s): XR thoracic spine 2V ?? Accession Number(s): [id number] ? cc: BRADFORD EDGE NP ? EXAMINATION: [...] DD/ 1525 ? TD/TT: 04/22/24 1538 ? Artificial Breast Fabricator: ? Procedure Note Gallo Image - 04/22/[address] [address] XRay Report Signed Patient: Vikki Willis JMR#: [id number] : 1960cct:[id number] Age/Sex: 64 / FADM Date: 04/22/24 [facility]: Bradford Edge FRENCH EDGE OPERATOR Ordering Physician: BRADFORD EDGE NP Date of Service: 04/22/24 Procedure(s): XR thoracic spine 2V Accession Number(s): [id number] cc: BRADFORD EDGE NP EXAMINATION: XR THORACIC [...] 04/22/24 1548 DD/ 1525 TD/TT: 04/22/24 1538 Artificial Breast Fabricator: Bradford Edge ANP IMG XR PROCEDURES Final [...] Media Lot # [id number] Lot# Expiration Date ,[id number] Blood Capillary blood specimen / Unknown 04/22/2024 3:06 PM EST Bradford Tenzin WALKER POINT OF CARE TEST ENTER/EDIT OR DERABLES Edited Result - Final * Hm Colonoscopy (09/05/2021 11:04 AM EDT) Historical Provider HEALTH MAINTENANCE Final Result * 3D DIGITAL UBALDO SCR MAMMO 1 (06/07/2019 12:30 PM EDT) Anatomical Region Laterality Modality Breast Bilateral Mammography 06/07/2019 12:3 0 PM EDT Narrative 06/07/2019 12:31 PM EDT Refer to the Notes tab for result details [facility] Procedure: 3D DIGITAL UBALDO SCR MAMMO 1 Procedure Note ProviderRubina MD - 06/21/2022 Refer to the Notes tab for result details [facility] Procedure: 3D DIGITAL UBALDO SCR MAMMO 1 Inez Dewitt NP IMG BI PROCEDURES Final Result * HPV mRNA E6/E7 (10/30/2016 3:00 PM EDT) Pathologist [facility] HPV mRNA E6/E7 Not Detected NOT DETECTED [facility] Comment: This test was performed using the APTIMA(R) HPV Assay ([employer] This assay detects E6/E7 viral messenger RNA (mRNA) from 14 high-risk HPV types (16,18,31,33,35,39,45,51, 52,56,58,59,66,68). For additional information please refer to: http://education.[employer]/faq/HZQ242s6 (This link is being provided for informational/ educational purposes only.) Test Performed by [facility], [facility], [address] [place] [id number] Elmo Foreman M.D., Ph.D., Director of Laboratories , CORNELIUS [id number] Please note: ??Effective 12/10/2015, HPV testing will be performed using [employer]'s APTIMA test which targets mRNA. Detecting mRNA instead of DNA, as in older methods, offers significant improvements in specificity. 10/30/2016 3:00 PM EDT us Inez Dewitt NP HISTORICAL/NON ORDERABLE LABS Fi nal Result [facility] [address] from Last 3 Months or Most Recently Relevant to Health Maintenance Insurance [facility] * Guarantor: Vikki Willis Account Type Relation to Patient Date of Phone Billing Address Personal/Family Self [address] Care Teams Cloud Security Architect Relationship Specialty Start Date End Date Bradford Edge ANP [address] [place] [address] PCP - General Family Medicine 11/16/20 Eduarda Krishnan MD [address] [place] [address] Hematology and Oncology 06/01/24June [address] [place] [address] 3rd [place] [address] 06/01/24
--- OUTSIDE RECORDS SUMMARY | 2024-06-27 18:10 | XMS_ITS | Encounter Summary ---
Author Organization [employer] Address 75 [facility] 7t [place] [address] Care Team Providers Care Dish Person Name Role Phone April Dave Primary Care Provider [phone] Eduarda Krishnan MD Unavailable [phone] June Unavailable Reason for Visit * Reason Onset Date Comments Hospital Follow-up 12/16/2023 Encounter Details Date Type Department Care Team (Late st Contact Info) Description 12/16/2023 Telephone [facility] [address] [place] [address] April Dave ANP [address] [place] [address] Hospital Follow-up Social History Tobacco Use Types [...] from pt requesting a HDF appt. Hospital: [facility] Date of admission: 12/09/23 Discharge date: 12/11/23 Diagnosed: Hand Surgery documented in this encounter Plan of Treatment Not on file documented as of this encounter Visit Diagnoses Not on filedocumented in this encounter Care Teams Dish Person Relationship Specialty Start Date End Date April Dave ANP [address] [place] [address] PCP - General Family Medicine 11/16/20 Eduarda Krishnan MD [address] [place] [address] Hematology and Oncology 06/01/24June 11 [facility] 3rd [place] [address] 06/01/24 documented as of this encounter
--- OUTSIDE RECORDS SUMMARY | 2024-06-27 18:10 | XMS_ITS | Encounter Summary ---
Author Organization [employer] Address 75 [facility] 7t [place] [address] Care Team Providers Care Educational Diagnostician Name Role Phone April Dave AARON Primary Care Provider [phone] Eduarda Krishnan MD Unavailable [phone] June Unavailable Reason for Visit * Reason Comments Gynecologic Exam Encounter Details Date Type Department Care Team (Latest Contact Info) Description 06/27/2024 9:30 AM EDT Procedure Visit [facility] [address] [place], [place] [phone] Jayda Yeboah CNM [address] [place], [place] [phone] Cervical cancer screening (Primary Dx); Menopause Social History Tobacco Use Types Packs/Day Years [...] Mass Index 25.78 06/27/2024 9:28 AM EDT documented in this encounter Progress Notes * Jayda Yeboah CNM - 06/27/2024 9:30 AM EDT Subjective Patient ID: Vikki Willis is a 64 y.o. female who presents for pap Mammogram and BMD ordered by PCP. Unsure of last pap, no prior abnormal. Thinks last pap was many years ago. Lives with cat, Dalila, feels safe at home. Lives on second floor, building has elevator access. No AUGER OPERATOR concerns. Denies urinary/vaginal symptoms. Not sexually active in years. Leg fracture in her 20s from fall on ice, no other fractures. No parental hip fractures. Review of Systems Genitourinary: Negative for dyspareunia, dysuria, frequency, genital sores, hematuria, menstrual problem, pelvic pain, urgency, vaginal bleeding, vaginal discharge and vaginal pain. No abnormal pap, no abnormal bleeding, no breast pain, no breast mass, no nipple discharge Objective BP 121/67 (BP Location: Left arm, Patient Position: Sitting, BP Cuff Size: Adult) Pulse 110 Temp 97.6 ??F (36.4 ??C) (Temporal) Resp 20 Ht 4' 9.68 (1.465 m) Wt 122 lb (55.3 kg) SpO2 96% BMI 25.78 kg/m?? Physical Exam Constitutional: Appearance: Normal appearance. Chest: Breasts: Right: Normal. No swelling, bleeding, inverted nipple, mass, nipple discharge, skin change or tenderness. Left: Normal. No swelling, bleeding, inverted nipple, mass, nipple discharge, skin change or tenderness. Genitourinary: General: Normal vulva. Labia: Right: No rash, tenderness, lesion or injury. Left: No rash, tenderness, lesion or injury. Vagina: Normal. No signs of injury and foreign body. No vaginal discharge, erythema, tenderness, bleeding or lesions. Cervix: No cervical motion tenderness, discharge, friability, lesion, erythema, cervical bleeding or eversion. Uterus: Normal. Not enlarged and not tender. Adnexa: Right adnexa normal and left adnexa normal. Right: No mass, tenderness or fullness. Left: No mass, tenderness or fullness. Comments: Ovaries non palpable bilaterally. Poor tone with Kegels, no prolapse with Valsalva Lymphadenopathy: Upper Body: Right upper body: No supraclavicular or axillary adenopathy. Left upper body: No supraclavicular or axillary adenopathy. Neurological: Mental Status: She is alert. Psychiatric: Mood and Affect: Mood normal. Behavior: Behavior normal. Assessment/Plan Diagnoses and all orders for this visit: Cervical cancer screening - Pap Smear Co-test today. Repeat 5y if normal/HPV neg. Will contact with results. Urged to schedule mammogram and BMD as ordered by PCP. Report bleeding. Report if new partners. Menopause No vasomotor symptoms, no vaginal/urinary symptoms. Report bleeding. documented in this encounter Plan of Treatment Scheduled Orders Name Type Priority Associated Diagnoses Orde r Schedule Pap Smear Pathology and Cytology Routine Cervical cancer screening Ordered: 06/27/2024 documented as of this encounter Visit Diagnoses Diagnosis Cervical cancer screening- Primary Screening for malignant neoplasm of the cervix Menopause Symptomatic menopausal or female climacteric states documented in this encounter Additional Health Concerns Assessment Noted Time PHQ-9 Depression Total Score: 1 12/31/19 24 10:03 AM EDT documented as of this encounter Care Teams Educational Diagnostician Relationship Specialty Start Date End Date April Dave ANP [address] [place] [address] PCP - General Family Medicine 11/16/20 Eduarda Krishnan MD [address] [place] [address] Hematology and Oncology 06/01/24June [address] [place] [address] [address] [place] [address] 06/01/24 documented as of this encounter
--- OUTSIDE RECORDS SUMMARY | 2024-06-27 18:10 | XMS_ITS | Encounter Summary ---
Author Organization [employer] Address 75 [facility] 7t [place] [address] Care Team Providers Care Real Estate Acquisition Analyst Name Role Phone April Dave AARON Primary Care Provider Eduarda Krishnan MD Unavailable June Unavailable Encounter Details Date Type Department Care Team (Latest Contact Info) Description 06/27/2024 Travel Social History Tobacco Use Types Packs/Day [...] documented as of this encounter Care Teams Real Estate Acquisition Analyst Relationship Specialty Start Date End Date April Dave ANP [address] [place] [address] PCP - General Family Medicine 11/16/20 Eduarda Krishnan MD [address] [place] [address] Hematology and Oncology 06/01/24RicoJune [address] [place] [address] [address] [place] [address] 06/01/24 documented as of this encounter
--- OUTSIDE RECORDS SUMMARY | 2024-06-27 18:10 | XMS_ITS | Data Portability ---
Author Organization [employer] formerly [employer], [place] Address [address] [place] [address] Care Team Providers Care Bus Escort Name Role Phone [facility] Referring Provider HIM CCA OTHER Assessment [...] in the field was performed by my paint stripper colleague, as noted above, I provided real-time [...] assessment and plan as documented by the paint stripper. I provided real-time medical direction for this [...] in the field was performed by my paint stripper colleague, as noted above, I provided real-time [...] Assessment and Plan as documented by the Family Dentist. We discussed the diagnostic uncertainty of home [...] to call 911- verbalized understanding of instruction [email or web address] Not available 03/08/2024 00:03:32 Plan of Treatment Reminders Order Date Submit Date Provider Last Modified By Organization Details Last Modified Time Details Appointments None recorded. Lab BMP, serum or plasma 2023 [email or web address] [facility], [address] [place] [address], [id number], 4 15:47:26 Referral None recorded. Procedures None recorded. Surgeries None recorded. Imaging None recorded. Medication Orders furosemide 10 mg/mL injection solution 2023 024 [email or web address] 0 [facility], [address] [place] [address], [id number], 4 15:47:26 potassium chloride ER 20 mEq tablet,exte nded release 2023 024 [email or web address] 0 [facility], [address] [place] [address], [id number], 4 15:47:26 azithromyci n 250 mg tablet 2022 023 [facility], [address] [place] [address], [id number], 3 12:11:17 Patient TargetsNo targets recorded. Patient [...] Not available Not available Not available 01/30/2024 61160 2 RxNorm Not Available [facility] 4 17:29:12 14331 hydrocodo ne Not available Not available Not available Not available 03/07/2024 5489 RxNorm Not Available [facility] 4 12:41:10 99458 tramadol medicatio n Not available Not available Not available 03/07/2024 19542 [facility] 4 12:41:10 58051 lisinopri l medicatio n Not available Not available Not available 03/07/2024 59627 RxNorm Not Available [facility] 4 12:41:10 7573 albuterol medicatio n Not available Not available Not available 01/26/2024 435 RxNorm Not Available [facility] 4 03:38:23 Medications Name Sig Start Date Stop Date Status Note LastModified by Organization Details LastModified Time medbox status USE DIRECTED active Not Available Not Available No t Available pulse oximet airial [id number] USE TWICE DAILY DIRECTED active Not Available [...] Available Not Available No t Available [employer] [place] Lite kit USE DIRECTED active Not Available [...] Address Organization Details Last Updated DateTime 3 35800.5 36 g 18 /min 98 /min 97 % 97 % 147.32 cm 100.6 [degF] 141 mm[Hg] 53 mm[Hg] Not Available [employer] 3 20:20:15 Date Recorded Body temperature Oxygen saturation Oxygen saturation in Arterial blood by Pulse oximetry Respiratory rate Heart rate Systolic blood pressure Diastolic blood pressure Provider Name and Address Organization Details Last Updated DateTime 4 96.3 [degF] 98 % 98 % 18 /min 90 /min 123 mm[Hg] 98 mm[Hg] Not Available [employer] 4 12:44:04 Date Recorded Respiratory rate Heart rate Body height Oxygen saturation Oxygen saturation in Arterial blood by Pulse oximetry Body weight Body temperature Systolic blood pressure Diastolic blood pressure Provider Name and Address Organization Details Last Updated DateTime 4 20 /min 97 /min 147.32 cm 99 % 99 % 74419.6 96 g 98.1 [degF] 116 mm[Hg] 77 mm[Hg] Not Available [employer] 4 19:02:23 Date Recorded Heart rate Body temperature Oxygen saturation Oxygen saturation in Arterial blood by Pulse oximetry Respiratory rate Systolic blood pressure Diastolic blood pressure Provider Name and Address Organization Details Last Updated DateTime 4 96 /min 96.9 [degF] 98 % 98 % 18 /min 151 mm[Hg] 86 mm[Hg] Not Available [employer] 4 15:08:50 Date Recorded Body height Body mass index (BMI) Body weight Provider Name and Address Organization Details Last Updated DateTime 03/07/2024 147.32 cm 26.8 kg/m2 62288.82 g Rosario Maguire MD [address] [place] [address],[address] [facility], [place], [address], [place] [facility] 03/07/2024 15:26:21 Date Recorded Oxygen saturation Oxygen saturation in Arterial blood by Pulse oximetry Body temperature Respiratory rate Heart rate Systolic blood pressure Diastolic blood pressure Provider Name and Address Organization Details Last Updated DateTime 2 96 % 96 % 98.7 [degF] 18 /min 93 /min 119 mm[Hg] 87 mm[Hg] Not Available [employer] 2 20:36:23 Social History None recorded. Functional Status None recorded. Mental Status None recorded. Family History Nothing Reported. Medical History No medical history recorded. Gynecological HistoryNo gynecological history recorded. Obstetrics History GPAL:G 0 P 0 0 0 0 Past Encounters Encounter ID Performer Location Encounter Start Date Encounter Closed Date Diagnosis/Indication Diagnosis SNOMED-CT Code Diagnosis ICD10 Code Diagnosis Note [id number] [facility] [address] [place] [phone] 12/13/2021 20:36:20 12/20/2021 13:30:15 Cellulitis 525609559 L03.90 [id number] Yelena Landaverde MD [facility] [address] [place] [id number] 02/23/2023 20:14:26 02/23/2023 23:04:54 Community acquired pneumonia 392559801 J18.9 Acute exac erbation of chronic obstructive pulmonary disease 800248850 J44.1 [id number] Winsome Díaz MD [facility] [address] [place] [id number] 10/24/2023 12:43:55 10/24/2023 13:07:28 Cat bite [id number] W55.01XA [id number] Yelena Landaverde MD [facility] [address] [place] [id number] 01/30/2024 19:02:19 02/01/2024 00:29:21 Abdominal pain 47982513 R10.9 Suprapubic pain 21794106 6 R10.30 [id number] Rosario Maguire MD [facility] [address] [place] [id number] 03/07/2024 15:08:39 03/08/2024 17:25:37 Peripheral edema 979626509 R60.9 No clinical evidence of CHFBoth legs more edematous than usual, right foot is more swollen than left/no history of trauma but no cords /Homans negative so DVT is unlikely. No warmth or erythema to suggest cellulitis . Primary care team: If patient continues to have pain/sts she will need imaging studies. Patient is quite anemic- her [facility] notes from 02/20 through 02/22/2024 state her [...] [employer] Member ID Guarantor Name 12/13/2021 1 [facility] - DOS PRIOR TO 2022 - DUAL ELIGIBLE (MEDICARE REPLACEMENT/AD VANTAGE - HMO) Vikki Willis [id number] Vikki Willis 02/23/2023 1 [facility] [employer] - DOS ON OR AFTER 2022 - DUAL ELIGIBLE - CARE HOME OPTIONS AND ONE CARE (MEDICARE REPLACEMENT/AD VANTAGE - HMO) Vikki Willis [id number] Vikki Willis 10/24/2023 1 [facility] [employer] - DOS ON OR AFTER 2022 - DUAL ELIGIBLE - CARE HOME OPTIONS AND ONE CARE (MEDICARE REPLACEMENT/AD VANTAGE - HMO) Vikki Willis [id number] Vikki Willis 01/30/2024 1 [facility] [employer] - DOS ON OR AFTER 2022 - DUAL ELIGIBLE - CARE HOME OPTIONS AND ONE CARE (MEDICARE REPLACEMENT/AD VANTAGE - HMO) Vikki Willis [id number] Vikki Willis 03/07/2024 1 [facility] [employer] - DOS ON OR AFTER 2022 - DUAL ELIGIBLE - CARE HOME OPTIONS AND ONE CARE (MEDICARE REPLACEMENT/AD VANTAGE - HMO) Vikki Willis [id number] Vikki Willis Notes Date Note Type Note [...] .................... .................... .................... .................... .................... .................... . Family Dentist Note: Dispatched for patient with chief complaint of umbilicus discharge. Upon arrival patient presents on wheelchair with normal respirations and alert x 4. Patient states having umbilicus pain and white discharge 3 days ago. Patient states no current pain. Umbilicus appears dry with no signs of erythema, swelling, or infection. [facility] contacted. Patient education given, red flags discussed. .................... .................... .................... .................... .................... .................... .................... . Disposition: Fulfilled eRed Carlos MD [address] [facility],[address], [place], [address], [employer] 12/13/2021 23:49:19 02/23/2023 text/html HPI: HX: JANET, [...] CRC RN DID NOT NEED FURTHER INFO [facility] HPI: runny nose, clear mucous, x 1 mo. seen by PCP, given cough medicine with codeine. last appt w PCP was 1 wk ago. still having productive cough. started corcidin last week 5d ago. using combivent and flovent. no sore throat, and some chest congestion Yelena Landaverde MD [address] [facility],[address], [place], [address], [employer] 02/23/2023 20:29:29 10/24/2023 text/html CRC Nurse Triage Notes (Elizabeth Grijalva): Reason For Request: Patient was bit on the arm by her Kitten. Chief Complaints: Injury PMH: COPD/Asthma, Diabetes, Hypertension Allergies: Albuterol Other Allergies: Vicodin Comments: Aboriginal Community Council Member verified the member's name//address and phone number.Member [...] .................... .................... .................... .................... .................... .................... . Family Dentist Note From Destini Castro: Pt with significant bite/scratch almendarez from kitten while both kittens in a fight. Kitten not yet fully vaccinated. A&ox3, vss, afebrile; one puncture site actively bleeding at present. C consulted, pt agreeable to go to ER by POV to have wounds irrigated and evaluated for stitches. Hand and wrist wrapped with clean dry dressing. Red flags reviewed. Family Dentist Allergies: Albuterol .................... .................... .................... .................... .................... .................... .................... . Disposition: Chitra Díaz MD [address] [facility],[address], [place], [address], [employer] 10/24/2023 13:07:25 01/30/2024 text/html CRC Nurse Triage Notes (Figueroa Sanders): Reason For Request: Pt reporting problem going number number 2 primarily but notes having problems going number 1 as well Chief Complaints: Abdominal pain PMH: COPD/Asthma, Hypertension, Anxiety Disorder, Chronic Kidney Disease, Depression, Epilepsy/Seizure Disorder, Diabetes Mellitus Type 2 Comments: Aboriginal Community Council Member verified the Pt.'s name//address and phone number. [...] scene and unable to make contacted - [place] [employer] contact and will be dispatching a unit [facility] HPI: pain w trying to urinate, like she has to push. some constipation. .................... .................... .................... .................... .................... .................... .................... . Family Dentist Note From Bob Ac: Pt chief complaint today of lower abdominal pain most closely related to the Pubic/perineal area. Pt states that she has been having this problem for 4 days prior to [facility]. Pt states she has been experiencing [...] Pt is CAOX4 with a GCS of 15[facility] Yelena Landaverde consultedPt expressed that it would be in her best interest to be seen at. Center of higher ability for more testing that [facility] cannot provide. Pt is also educated on the possible negative effects that can occur from waiting up t and including possible . Pt decides to wait till tomorrow for further diagnostics and treatmentPt is educated on red flag S&S and informed to call emergency services if any present. .................... .................... .................... .................... .................... .................... .................... . [facility] Consulted: Yelena Landaverde .................... .................... .................... .................... .................... .................... .................... . Disposition: Fulfilled Yelena Landaverde MD [address] [facility],[address], [place], [address], [facility] 01/30/2024 19:47:48 03/07/2024 text/html HPI: Call returned [...] come into walk in center. Agrees to [facility] for evaluation. Confirmed demographics and allergies. .................... .................... .................... .................... .................... .................... .................... . CRC Nurse Triage Notes (Treasure Childers): Chief Complaints: Swelling PMH: COPD/Asthma, Hypertension, Anxiety Disorder, Chronic Kidney Disease, Depression, Epilepsy/Seizure Disorder, Diabetes Mellitus Type 2, Asthma Comments: HPI reviewed Family Dentist Organization Information for James Greene Legal Name: [facility] Transportation Address: [address] [place] [address], [place] [address], Glass Inserter: Douglas Bucio MD CLIA No.: [id number] Family Dentist POC Test Results from James Greene [facility] (15:03:32) pH: 7.39 pH units pCO2: 32.2 mmHg pO2: 41.0 mmHg Na: 135 mmol/L K: 3.7 mmol/L iCa: 1.21 mmol/L Cl: 106 mmol/L TCO2: 19.2 mEq/L Hct: 28 % Hb: 9.5 g/dL Glu: 103 mg/dL Lac: 1.3 mmol/L Cr: 0.77 mg/dL BUN: 7 mg/dL A .................... .................... .................... .................... .................... .................... .................... . Family Dentist Note From James Greene: This 63-year-old female [...] .................... .................... .................... .................... .................... .................... . [facility] Consulted: Rosario Maguire .................... .................... .................... .................... .................... .................... .................... . Disposition: Fulfilled SEGMD: Patient denies trauma/she denies history of gout. Although her right foot is more swollen than the left she reports her legs are much more edematous than baseline and they are painful. She was hospitalized at [facility] the week of 02/20 with a potassium of 2 diverticulitis and a UTI. Her hemoglobin was noted to go from 11 down to 8 during that visit with no history of GI bleeding. She also has a PMH including but not limited to: Asthma/COPD/HTN/CHF/ /CKD/DM 2/epilepsy/(iron deficiency anemia, hyponatremia and hypokalemia per PCP note 03/03/2024)./Anxiety and depression. Rosario Maguire MD [address] [place] [address],[address], [place], [address], [employer] [facility] 03/08/2024 00:13:48 OBGyn Episode No OBEpisode recorded.
--- OUTSIDE RECORDS SUMMARY | 2024-06-27 18:10 | XMS_ITS | Encounter Summary ---
Author Organization [employer] Address [address] [facility] [address] [address] Care Team Providers Care Investor Relations Director Name Role Phone April Dave Primary Care Provider [phone] Eduarda Krishnan MD Unavailable [phone] June Unavailable Reason for Visit * Reason Onset Date Comments Triage 08/22/2022 Encounter Details Date Type Department Care Team ([facility] st Contact Info) Description 08/22/2022 Telephone [facility] [address] [place] [address] April Dave ANP [address] [place] [address] Triage Social History Tobacco Use Types Packs/Day [...] accepted this outcome Please contact pt at [phone] documented in this encounter Plan of Treatment Not on file documented as of this encounter Visit Diagnoses Not on filedocumented in this encounter Care Teams Investor Relations Director Relationship Specialty Start Date End Date April Dave ANP [address] [place] [address] PCP - General Family Medicine 11/16/20 Eduarda Krishnan MD [address] [place] [address] Hematology and Oncology 06/01/24June [address] [place] [address] 3rd [place] [address] 06/01/24 documented as of this encounter
--- OUTSIDE RECORDS SUMMARY | 2024-06-27 18:10 | XMS_ITS | Encounter Summary ---
Author Organization [employer] Address [address] [facility] 7t [place] [address] Care Team Providers Care Farm Machinery Assembler Name Role Phone April Dave Primary Care Provider [phone] Eduarda Krishnan MD Unavailable [phone] June Unavailable Reason for Visit * Reason Onset Date Comments Med Refill 05/27/2024 Encounter Details Date Type Department Care Team (Late st Contact Info) Description 05/27/2024 Telephone [facility] MEDICINE [address] [place], [place] [phone] April Dave ANP [address] [place] [address] Med Refill Social History Tobacco Use Types Packs/Day Years [...] encounter Miscellaneous Notes * Telephone Encounter - Isa Muir LPN - 05/27/2024 2:51 PM EST Script was sent on 05/10/24 to [facility]. * Telephone Encounter - Remington Briggs - 05/27/2024 2:48 PM EST TC from pt requesting medication refill. Medications needing refill : rOPINIRole (Requip) 1 MG tablet To be sent to: [facility] - [place], [place] - [address] [facility] Pt states that she dosent have any more left. documented in this encounter Plan of Treatment Not on file documented as of this encounter Visit Diagnoses Not on filedocumented in this encounter Additional Health Concerns Assessment Noted Time PHQ-9 Depression Total Score: 1 12/31/19 24 10:03 AM EDT documented as of this encounter Care Teams Farm Machinery Assembler Relationship Specialty Start Date End Date April Dave ANP [address] [place] [address] PCP - General Family Medicine 11/16/20 Eduarda Krishnan MD [address] [place] [address] Hematology and Oncology 06/01/[address] 3rd [place] [address] 06/01/24 documented as of this encounter
--- OUTSIDE RECORDS SUMMARY | 2024-06-27 18:11 | XMS_ITS | Encounter Summary ---
Author Organization [employer] Address [address] [place] [address] 7 [place] [address] Care Team Providers Care Entry Operator Name Role Phone April Dave Primary Care Provider [phone] Eduarda Krishnan MD Unavailable [phone] June Unavailable Encounter Details Date Type Department Care Team (Late st Contact Info) Description 02/28/[address] [facility] [address] [place] [address] Emily Pitts, RN [address] [place] [address] Social History Tobacco Use Types Packs/Day Years [...] on filedocumented in this encounter Care Teams Entry Operator Relationship Specialty Start Date End Date April Dave ANP [address] [place] [address] PCP - General Family Medicine 11/16/20 Eduarda Krishnan MD [address] [place] [address] Hematology and Oncology 06/01/24June [address] [place] [address] [address]rd [facility] [place] [address] 06/01/24 documented as of this encounter
--- OUTSIDE RECORDS SUMMARY | 2024-06-27 18:11 | XMS_ITS | Clinical Summary ---
Author Organization [address] [facility] Address [address] [place] [address] Phone Care Team Providers Care Curriculum Development Coordinator Name Role Phone April Dave NP Primary Care Provider Social History Tobacco Use Types Packs/Day Years Used Date Smoking Tobacco: Never Assessed Comments Unknown Sex and Gender Information Value Date Recorded Sex Assigned at Not on file Legal Sex Female 9:35 AM EST Gender Identity Not on file Sexual Orientation Not on file Plan of Treatment Upcoming Encounters Date Type Department Care Team ([facility] st Contact Info) Description 08/17/2024 1:30 PM EDT Consult Orthopedic Surgery - [place] [address] [phone] Terell Nicholas DPM [address] [address] Health Maintenance Due Date Last Done Comments Breast Cancer Screening 1960 DTaP,Tdap,and Td Vaccines (1 - Tdap) 1979 Cervical Cancer Screening: P ap Smear 1981 Pneumococcal Vaccine: 50+ Ye ars (1 of 1 - PCV) 2010 Zoster Vaccines (1 of 2) 2010 COVID-19 Vaccine ( - 2023-2 5 season) 2023 Influenza Vaccine (#1) 2023 Colorectal Cancer Screening: Colonoscopy 01/23/2024 Depression Screening 01/23/2024 HIV Screening 01/23/2024 Hepatitis C Screening 01/23/2024 Medicare Annual Wellness Visit 01/23/2024 Social Influencers of Health Screening 01/23/2024 RSV Immunization Patients 60 + Years Old (1 - 1-dose 75+ series) 2035 HIB Vaccines Aged Out No longer eligi ble based on patient's age to complete this topic HPV Vaccines Aged Out No longer eligi ble based on patient's age to complete this topic Hepatitis A Vaccines Aged Out No long er eligible based on patient's age to complete this topic Hepatitis B Vaccines Aged Out No long er eligible based on patient's age to complete this topic IPV Vaccines Aged Out No longer eligi ble based on patient's age to complete this topic MMR Vaccines Aged Out No longer eligi ble based on patient's age to complete this topic Meningococcal ACWY Vaccine Aged Out N o longer eligible based on patient's age to complete this topic Meningococcal B Vacine Aged Out No lo nger eligible based on patient's age to complete this topic Pneumococcal Vaccine: Pediat rics (0 to 5 Years) and At-Risk Patients (6 to 64 Years) Aged Out No longer eligible b ased on patient's age to complete this topic RSV Immunization Patients Un riky 20 months Aged Out No longer eligible b ased on patient's age to complete this topic Varicella Vaccines Aged Out No longer eligible based on patient's age to complete this topic Insurance apt [address] [place] [id number] [employer] MEDICARE Member Subscriber Plan / Payer (Ef fective 2016-Present) Name:Vikki Willis Relation to Subscriber:Self Name:Vikki Willis Payer ID:[id number] Group ID:[id number] Type:Not on file Address: [place] [address] [address] [phone] Care Teams Curriculum Development Coordinator Relationship Specialty Start Date End Date April Dave NP [address] [place] [address] [place] [address] PCP - General 01/05/24
--- OUTSIDE RECORDS SUMMARY | 2024-06-27 18:11 | XMS_ITS | Clinical Summary ---
Author Organization [facility] Address [address] [place] [address] [address] L[place]NDONZITA [address] Phone Care Team Providers Care Slitting And Shipping Supervisor Name Role Phone Inez Dewitt NP Primary Care Provider [phone] Allergies Active Allergy Reactions Criticality Noted Date [...] by mouth 2 Active UltiCare Mini Pen Catlett 31G X 6 MM misc USE FOUR [...] BY MOUTH IN THE MORNING 135 tablet 5 Active Active Problems Problem Noted Date Diagnosed [...] Communication [facility] [address] [place] [phone] Alan Nash MD 05/10/2024 Refill [facility] [address] [place] [phone] Alan Nash MD from Last 3 Months [...] Care Team (Late st Contact Info) Description 09/19/2024 3:15 PM EDT Office Visit [facility] [address] [place] [address] Alan Nash MD [address] [facility] [address] [place] [address] Health Maintenance Due Date Last Done Comments [...] 07/01/2023, 11/07/2014, 07/27/2014, Additional history exists Insurance ([id number]) [place] [address] ([id number]) Care Teams Slitting And Shipping Supervisor Relationship Specialty Start Date End Date Inez Dewitt NP [address] [place] [address] PCP - General 04/09/20
--- OUTSIDE RECORDS SUMMARY | 2024-06-27 18:11 | XMS_ITS | Encounter Summary ---
Author Organization [employer] Address 75 [facility] 7t [place] [address] Care Team Providers Care Grain Shipper Name Role Phone April Dave Primary Care Provider [phone] Eduarda Krishnan MD Unavailable [phone] June Unavailable Reason for Visit * Reason Comments Med Refill Encounter Details Date Type Department Care Team ([facility] st Contact Info) Description 01/05/2023 Refill [facility] MED[facility]INE 230 [place] [address] April Dave ANP 230 [place] [address] Depressive disorder Social History Tobacco Use Types [...] classified documented in this encounter Care Teams Grain Shipper Relationship Specialty Start Date End Date April Dave ANP 230 [place] [address] PCP - General Family Medicine 11/16/20 Eduarda Krishnan MD [address] [place] [address] Hematology and Oncology 06/01/[address] [place] [address] 3[address] [place] [address] 06/01/24 documented as of this encounter
--- OUTSIDE RECORDS SUMMARY | 2024-06-27 18:11 | XMS_ITS | Encounter Summary ---
Author Organization [employer] Address 75 [facility] 7t [place] [address] Care Team Providers Care Tombstone Carver Name Role Phone Tenzin April WALKER Primary Care Provider [phone] Eduarda Krishnan MD Unavailable [phone] June Unavailable Encounter Details Date Type Department Care Team (Late st Contact Info) Description 10/09/2023 Orders Only [facility] MEDICINE 230 [place] [address] ProviderRubina MD Social History Tobacco Use Types Packs/Day Years [...] on filedocumented in this encounter Care Teams Tombstone Carver Relationship Specialty Start Date End Date April Dave ANP 230 [place] [address] PCP - General Family Medicine 11/16/20 Eduarda Krishnan MD [address] [place] [address] Hematology and Oncology 06/01/[address] [place] [address] 3rd [place] [address] 06/01/24 documented as of this encounter
--- OUTSIDE RECORDS SUMMARY | 2024-06-27 18:11 | XMS_ITS | Encounter Summary ---
Author Organization [employer] Address 75 [facility] 7t [place] [address] Care Team Providers Care Book Solicitor Name Role Phone April Dave Primary Care Provider [phone] Eduarda Krishnan MD Unavailable [phone] June Unavailable Reason for Visit * Reason Comments Med Refill Encounter Details Date Type Department Care Team (Late st Contact Info) Description 06/09/2023 Refill [facility] MEDICINE 230 [place] [address] April Dave ANP 230 [place] [address] Diabetic nephropathy associated with type 2 diabetes [...] Patient states she sees Temitope Rico at [facility] and has a follow-up on 06/30/23. She is not sure whether/when a colonoscopy will be recommended. She states she will clam picker folic acid supplement and ropinirole from pharmacy [...] and/or other concerns arise. TC placed to [facility] pharmacy and they stated they were [...] (CMS/HCC) documented in this encounter Care Teams Book Solicitor Relationship Specialty Start Date End Date April Dave ANP 230 [place] [address] PCP - General Family Medicine 11/16/20 Eduarda Krishnan MD [address] [place] [address] Hematology and Oncology 06/01/[address] 3rd [place] [address] 06/01/24 documented as of this encounter
--- OUTSIDE RECORDS SUMMARY | 2024-06-27 18:11 | XMS_ITS | Encounter Summary ---
Author Organization [employer] Address 75 [facility] 7t [place] [address] Care Team Providers Care Loom Doffer Name Role Phone April Dave Primary Care Provider [phone] Eduarda Krishnan MD Unavailable [phone] June Unavailable Reason for Visit * Reason Onset Date Comments FYI 03/11/2023 Encounter Details Date Type Department Care Team ([facility] st Contact Info) Description 03/11/[address] [facility] MEDICINE 230 [place] [address] April Dave ANP 230 [place] [address] FYI Social History Tobacco Use Types Packs/Day [...] - 03/11/2023 1:30 PM EST Tc from [facility] with [facility] pulmonology advising PCP, pt preferred [facility] and is booked for 04/29 @ 2:45 PM. documented in this encounter Plan of Treatment Not on file documented as of this encounter Visit Diagnoses Not on filedocumented in this encounter Care Teams Loom Doffer Relationship Specialty Start Date End Date April Dave ANP 230 [place] [address] PCP - General Family Medicine 11/16/20 Eduarda Krishnan MD [address] [place] [address] Hematology and Oncology 06/01/24June [address] [place] [address] 3rd [place] [address] 06/01/24 documented as of this encounter
[2024-06-30 15:06] LABS: HPV Genotype 16 Negative (Negative); HPV Genotype 18 Negative (Negative); HPV High Risk Negative (Negative)
== END 2024-06-27 16:52 | disposition home or self-care (01) ==
LOC: HO.HHCLNP 16:51
PROVIDERS: Visit Provider Advanced Practice Midwife
DX: Z12.4 Encounter for screening for malignant neoplasm of cervix (principal); Z11.51 Encounter for screening for human papillomavirus (HPV)
CPT/HCPCS: 87626; 88175

== ENCOUNTER 2024-06-29 12:41 | Outpatient (REF) | payer OTHER, SELFPAY ==
--- NOTE | ~2024-06-29 | US_ITS ---
EXAMINATION: US ABDOMEN LIMITED CLINICAL INFORMATION: Discharge, erythema and tenderness, umbilical.. COMPARISON: None available. TECHNIQUE: Real-time ultrasound and of the umbilical region with a linear transducer using grayscale and color Doppler technique. FINDINGS: No fluid collections. No gross masses. Mild edema pattern. US/US abdomen limited IMPRESSION: No fluid collection, umbilical region. Electronically signed by: Raymundo Bhagat MD 06/29/2024 01:49 PM EDT
--- OUTSIDE RECORDS SUMMARY | 2024-06-29 15:09 | XMS_ITS | Clinical Summary ---
Author Organization [employer] Address 75 [facility] 7t [place] [address] Care Team Providers Care Vasc Tech Name Role Phone Bradford Edge AARON Primary Care Provider [phone] Eduarda Krishnan MD Unavailable [phone] June Unavailable Allergies Active Allergy Reactions [...] unspecified whether stage 3a or 3b CKD (CMS/[facility]) 1 kit See administration instructions. Use for [...] EVERY MORNING 90 tablet 3 024 Active bacitracin-poly myxin b (Polysporin) ointment Apply topically 2 times daily. 15 g Active amLODIPine (Norvasc) 2.5 MG tablet TAKE [...] Take 2 tablets by mouth at bedtime. Active olmesartan (BENIcar) 40 MG tablet Take [...] times daily. 30 g 1 025 Active Januvia 50 MG tabletIndicatio ns:Diabetic nephropathy associated with type 2 diabetes mellitus (CMS/HCC) TAKE 1 TABLET BY MOUTH EVERY MORNING 90 tablet 1 025 Active fluticasone (Flonase) 50 MCG/ACT nasal sprayIndication s:Allergic rhinitis, unspecified seasonality, unspecified trigger INHALE 2 SPRAYS IN EACH NOSTRIL ONCE DAILY 16 g 5 024 2024 Discontinued SITagliptin (Januvia) 50 MG tabletIndicatio ns:Diabetic nephropathy associated with type 2 diabetes mellitus (CMS/HCC) Take 1 tablet (50 mg) by mouth in the morning. 90 tablet 1 024 2024 Discontinued doxycycline (Vibramycin) 100 MG [...] Description 06/27/2024 9:30 AM EDT Procedure Visit [address] [address] Jayda Yeboah CNM Cervical cancer screening (Primary Dx); Menopause 06/27/2024 Refill [facility] MEDICINE [address] [place] [address] Bradford Edge ANP Diabetic nephropathy associated with type 2 diabetes mellitus ([facility]) 06/27/2024 Travel 06/20/[address] [address] Bradford Edge ANP Appointment Request 06/17/2024 9:00 AM EDT Office Visit [address] [address] Bradford Edge ANP Abnormal weight loss (Primary Dx); Chronic left shoulder pain; Left arm weakness; Osteopenia, unspecified location 06/17/[address] [address] Emily Pitts RN Interoffice Coordination 06/17/2024 Travel 06/15/2024 Orders Only [facility] External Provider, [facility] 06/14/2024 9:40 AM EDT Office Visit [facility] [address] [place] [address] James Castro MD Umbilicus discharge (Primary Dx) 06/14/2024 [facility] [address] [address] James Castro MD 06/14/2024 Travel 06/02/[address] [address] Bradford Edge ANP Allergic rhinitis, unspecified seasonality, unspecified trigger 06/01/[address] [address] Bradford Edge ANP Referral 05/27/[address] [address] Bradford Edge ANP Med Refill 05/10/2024 Refill [facility] [address] [place] [address] MD Restless legs 05/02/[address] [address] Bradford Edge ANP Appointment Request; Referral 04/27/[address] [place] [address] Bradford Edge ANP Referral; Contact And Service Clerks Supervisor 04/26/2024 Telephone [facility] MED[facility]INE [address] [place] [address] [place] [address] Aicha Venegas RN Results 04/22/2024 2:15 PM EST Office Visit [facility] [address] [place] [address] [place] [address] Bradford Edge ANP Diabetic nephropathy associated with type 2 diabetes mellitus ([facility]) (Primary Dx); Mid back pain; Iron deficiency anemia, unspecified iron deficiency anemia type; Hypokalemia 04/22/2024 Travel 04/22/2024 Telephone [facility] [address] [place] [address] Miesha Zelaya MA chart prep 04/13/2024 Telephone [facility] [address] [place] [address] Aicha Venegas RN Medication Question 04/12/2024 Orders Only [facility] [address] [place] [address] Bradford Edge ANP 04/12/2024 Refill [facility] [address] [place], [place] [phone] Bradford Edge ANP 04/11/2024 Refill [facility] [address] [place] [address] Bradford Edge ANP Seizure disorder ([facility]) from Last 3 Months Immunizations Name Administration [...] your housing situation today? I have kris claude 01/12/[address] you li [...] Procedure Name Priority Date/Time Associated Diagnosis Comments US ABDOMEN LIMITED Urgent 06/29/2024 1: 00 PM EDT Umbilicus discharge XR HAND 3+ VIEWS RIGHT Routine 06/15/2024 [...] SCREENING BILATERAL Routine 06/07/2019 12:30 PM EDT LATRICIA HISTORICAL HPV MRNA E6/E7 Routine 10/30/2016 3:00 PM EDT from Last 3 Months or Most Recently Relevant to Health Maintenance Results * US Abdomen Limited (06/29/2024 1:00 PM EDT) Anatomical Region Laterality Modality Abdomen Ultrasound 06/29/2024 1:00 PM EDT Narrative 06/29/2024 1:52 PM EDT ? [facility] ?[address] ?[place] [address] ? Ultrasound Report ? Signed ? Patient: Washburne,Vikki J ?MR#: [id number] ?? [id number] ? : 1960 ?Acct:[id number] ? Age/Sex: 64 / F ?ADM Date: 04/02/25 ? Loc: HO.US ? Attending Dr: James Castro MD ? Ordering Physician: JAMES CASTRO MD ?? Date of Service: 06/29/24 ?? Procedure(s): US abdomen limited ?? Accession Number(s): [id number] ? cc: JAMES CASTRO MD; BRADFORD EDGE NP ? EXAMINATION: ?? US ABDOMEN LIMITED ? CLINICAL INFORMATION: ?? Discharge, erythema and tenderness, umbilical.. ? COMPARISON: ?? None available. ? TECHNIQUE: ?? Real-time ultrasound and of the umbilical region with a linear ?? transducer using grayscale and color Doppler technique. ? FINDINGS: ?? No fluid collections. No gross masses. Mild edema pattern. ? US/US abdomen limited ?? IMPRESSION: ?? No fluid collection, umbilical region. ? Electronically signed by: ??Raymundo Bhagat MD ??06/29/2024 01:49 PM ?? EDT RP ? Dictated By: ?Raymundo Harrington MD ? Signed By: ?<Electronically signed by Raymundo Pitts MD in OV> ? 06/29/24 1349 ? DD/ 1300 ? TD/TT: 06/29/24 1303 ? Medical Case Worker: ? Procedure Note Ruchi Holder - 06/29/2024 [place] [address] Ultrasound Report Signed Patient: Vikki Willis JMR#: [id number] : 1960cct:[id number] Age/Sex: 64 / FADM Date: 06/29/24 Loc: HO.US Attending Dr: James Castro MD Ordering Physician: JAMES CASTRO MD Date of Service: 06/29/24 Procedure(s): US abdomen limited Accession Number(s): [id number] cc: JAMES CASTRO MD; BRADFORD EDGE NP EXAMINATION: US ABDOMEN LIMITED CLINICAL INFORMATION: Discharge, erythema and tenderness, umbilical.. COMPARISON: None available. TECHNIQUE: Real-time ultrasound and of the umbilical region with a linear transducer using grayscale and color Doppler technique. FINDINGS: No fluid collections. No gross masses. Mild edema pattern. US/US abdomen limited IMPRESSION: No fluid collection, umbilical region. Electronically signed by: Raymundo Bhagat MD 06/29/2024 01:49 PM EDT Dictated By: Raymundo Harrington MD Signed By: <Electronically signed by Raymundo Pitts MDin OV> 06/29/24 1349 DD/ 1300 TD/TT: 06/29/24 1303 Medical Case Worker: us James Castro MD IMGeorgette PROCEDURES Edited Result - Final * XR Hand 3+ Views Right (06/15/2024 9:15 AM EDT) Anatomical Region Laterality Modality Upper Extremities, Hand Right Radiogra phic Imaging 06/15/2024 9:15 AM EDT Narrative 06/15/2024 1:28 PM EDT ? [facility] ? [address] ?[place] [address] ?XRay Report ? Signed ? Patient: Vikki Willis J ?MR#: [id number] ?? [id number] ? : 1960 ?Acct:[id number] ? Age/Sex: 64 / F ?ADM Date: 06/15/24 ? Loc: HO.HOSX ? Attending Dr: Lupe Moreno MD ? Ordering Physician: Luep Moreno MD ?? Date of Service: 06/15/24 ?? Procedure(s): XR hand RT min 3V ?? Accession Number(s): [id number] ? cc: Lupe Moreno MD; BRADFORD EDGE [...] ??Jose Grissom MD ??06/15/2024 01:24 PM EDT ?? RP ? Dictated By: ?Jose Grissom MD ? Signed By: ?<Electronically signed by Jose Grissom MD in OV> ?06/15/24 1324 ? DD/ 0915 ? TD/TT: 06/15/24 0920 ? Medical Case Worker: ? Procedure Note Donotuseinterpreter, Image - 06/15/2024 [facility] [address] [place] [address] Drive [address] [place] [address] XRay Report Signed Patient: Vikki Willis JMR#: [id number] : 1960cct:[id number] Age/Sex: 64 / FADM Date: 06/15/24 Loc: HO.HOSX Attending Dr: Lupe Moreno MD Ordering Physician: Lupe Moreno MD Date of Service: 06/15/24 Procedure(s): XR hand RT min 3V Accession Number(s): [id number] cc: Lupe Moreno MD; BRADFORD EDGE NP [...] 06/15/24 1324 DD/ 0915 TD/TT: 06/15/24 0920 Medical Case Worker: [facility] External Provider IMG XR PROCEDURES Final Result * XR Thoracic Spine 2 Views (04/22/2024 3:25 PM EST) Anatomical Region Laterality Modality Spine, T-spine Radiographic Steffi ging 04/22/2024 3:25 PM EST Narrative 04/22/2024 3:51 PM EST ?[place] [facility] ?[address] ?[place] [address] ?XRay Report ? Signed ? Patient: Washburne,Vikki J ?MR#: [id number] ?? [id number] ? : 1960 ?Acct:[id number] ? Age/Sex: 64 / F ?ADM Date: 04/22/24 ? Loc: HO.HHCX ? Attending Dr: Bradford Edge NP ? Ordering Physician: BRADFORD EDGE NP ?? Date of Service: 04/22/24 ?? Procedure(s): XR thoracic spine 2V ?? Accession Number(s): [id number] ? cc: BRADFORD EDGE NP ? EXAMINATION: [...] ? Signed By: ?<Electronically signed by Jose Faberman, MD in OV> ?04/22/24 1548 ? DD/ 1525 ? TD/TT: 04/22/24 1538 ? Medical Case Worker: ? Procedure Note Ruchi Holder - 04/22/[address] [address] XRay Report Signed Patient: Vikki Willis JMR#: [id number] : 1960cct:[id number] Age/Sex: 64 / FADM Date: 04/22/24 Loc: HO.HHCX Attending Dr: Bradford Edge SPACE CONTROLLER Ordering Physician: BRADFORD EDGE NP Date of Service: 04/22/24 Procedure(s): XR thoracic spine 2V Accession Number(s): [id number] cc: BRADFORD EDGE SPACE CONTROLLER EXAMINATION: XR THORACIC SPINE 2 VIEWS HISTORY: [...] 04/22/24 1548 DD/ 1525 TD/TT: 04/22/24 1538 Medical Case Worker: us Bradford Edge ANP IMG XR PROCEDURES [...] HPV mRNA E6/E7 Not Detected NOT DETECTED [facility] Comment: This test was performed using the APTIMA(R) HPV Assay ([employer] This assay detects E6/E7 viral messenger RNA (mRNA) from 14 high-risk HPV types (16,18,31,33,35,39,45,51, 52,56,58,59,66,68). For additional information please refer to: http://education.AppsFunder/faq/OTQ153r0 (This link is being provided for informational/ educational purposes only.) Test Performed by [facility], [facility], [address] [place] [address] Elmo Foreman M.D., Ph.D., Director of Laboratories , [facility] [id number] Please note: ??Effective 12/10/2015, HPV testing will be performed using [employer]'s APTIMA test which targets mRNA. Detecting mRNA instead of DNA, as in older methods, offers significant improvements in specificity. 10/30/2016 3:00 PM EDT Inez Dewitt NP HISTORICAL/NON ORDERABLE LABS Fi nal Result [facility] [address] from Last 3 Months or Most Recently Relevant to Health Maintenance Insurance [facility] Care Teams Vasc Tech Relationship Specialty Start Date End Date Bradford Edge ANP 230 [place] [address] PCP - General Family Medicine 11/16/20 Eduarda Krishnan MD [address] [place] [address] Hematology and Oncology 06/01/24June [address] [facility] 3rd [place] [address] 06/01/24
--- OUTSIDE RECORDS SUMMARY | 2024-06-29 15:09 | XMS_ITS | Encounter Summary ---
Author Organization [employer] Address 75 [facility] 7t [place] [address] Care Team Providers Care Insurance Claim Representative Name Role Phone April Dave Primary Care Provider [phone] Eduarda Krishnan MD Unavailable [phone] June Unavailable Reason for Visit * Reason Onset Date Comments FYI 03/11/2023 Encounter Details Date Type Department Care Team ([facility] st Contact Info) Description 03/11/2023 Telephone [facility] MEDICINE 230 [place] [address] April Dave ANP [address] [place] [address] FYI Social History Tobacco Use Types Packs/Day [...] - 03/11/2023 1:30 PM EST Tc from [facility] with [facility] pul[facility] advising PCP, pt preferred [facility] and is booked for 04/29 @ 2:45 PM. documented in this encounter Plan of Treatment Not on file documented as of this encounter Visit Diagnoses Not on filedocumented in this encounter Care Teams Insurance Claim Representative Relationship Specialty Start Date End Date April Dave ANP [address] [place] [address] PCP - General Family Medicine 11/16/20 Eduarda Krishnan MD [address] [place] [address] Hematology and Oncology 06/01/24June [address] [place] [address] 3[address] [place] [address] 06/01/24 documented as of this encounter
--- OUTSIDE RECORDS SUMMARY | 2024-06-29 15:09 | XMS_ITS | Encounter Summary ---
Author Organization [employer] Address 75 [facility] 7t [place] [address] Care Team Providers Care First Responder Name Role Phone April Dave Primary Care Provider [phone] Eduarda Krishnan MD Unavailable [phone] June Unavailable Reason for Visit * Reason Comments Med Refill Encounter Details Date Type Department Care Team (Late st Contact Info) Description 06/27/2024 Refill [facility]ICINE 230 [place] [address] April Dave ANP 230 [place] [address] Diabetic nephropathy associated with type 2 diabetes [...] * Telephone Encounter - AARON Linares - 06/29/2024 10:18 AM EDT Last renal function: Lab Results Component Value Date GLUCOSE 88 03/15/2024 NA 138 03/15/2024 K 3.0 (L) 03/15/2024 CO2 23 03/15/2024 CL 107 03/15/2024 BUN 6 (L) 03/15/2024 CREATININE 0.74 03/15/2024 EGFR >60 03/15/2024 No results found for: MICROALBCREA No results found for: MICROALBCREU Estimated Creatinine Clearance: 56.5 mL/min (by C-G formula based on SCr of 0.74 mg/dL). documented in this encounter Plan of Treatment Not on file documented as of this encounter Visit Diagnoses Diagnosis Diabetic nephropathy associated with type 2 diabetes mellitus (CMS/HCC) documented in this encounter Additional Health Concerns Assessment Noted Time PHQ-9 Depression Total Score: 1 12/31/19 24 10:03 AM EDT documented as of this encounter Care Teams First Responder Relationship Specialty Start Date End Date April Dave ANP [address] [place] [address] PCP - General Family Medicine 11/16/20 Eduarda Krishnan MD [address] [facility] [address] Hematology and Oncology 06/01/24June [address] [place] [address] Drive 3rd [place] [address] 06/01/24 documented as of this encounter
--- OUTSIDE RECORDS SUMMARY | 2024-06-29 15:09 | XMS_ITS | Encounter Summary ---
Author Organization [employer] Address 75 [facility] [address], [place] [address] Care Team Providers Care Sales Promoter Name Role Phone April Dave Primary Care Provider [phone] Eduarda Krishnan MD Unavailable [phone] June Unavailable Reason for Visit * Reason Onset Date Comments Triage 08/22/2022 Encounter Details Date Type Department Care Team ([facility] st Contact Info) Description 08/22/2022 Telephone [facility] MEDICINE 230 [place] [address] April Dave ANP [address] [place] [address] Triage Social History Tobacco Use Types Packs/Day [...] accepted this outcome Please contact pt at [phone] documented in this encounter Plan of Treatment Not on file documented as of this encounter Visit Diagnoses Not on filedocumented in this encounter Care Teams Sales Promoter Relationship Specialty Start Date End Date April Dave ANP 230 [place] [address] PCP - General Family Medicine 11/16/20 Eduarda Krishnan MD [address] [place] [address] Hematology and Oncology 06/01/24June [address] [place] [address] 3rd [place] [address] 06/01/24 documented as of this encounter
--- OUTSIDE RECORDS SUMMARY | 2024-06-29 15:09 | XMS_ITS | Encounter Summary ---
Author Organization [employer] Address 75 [facility] 7t [place] [address] Care Team Providers Care Job Order Clerk Name Role Phone April Dave AARON Primary Care Provider [phone] Eduarda Krishnan MD Unavailable [phone] June Unavailable Encounter Details Date Type [...] documented as of this encounter Care Teams Job Order Clerk Relationship Specialty Start Date End Date April Dave ANP 230 [place] [address] PCP - General Family Medicine 11/16/20 Eduarda Krishnan MD [address] [place] [address] Hematology and Oncology 06/01/24RicoJune [address] [place] [address] 3[address] [place] [address] 06/01/24 documented as of this encounter
--- OUTSIDE RECORDS SUMMARY | 2024-06-29 15:09 | XMS_ITS | Data Portability ---
Author Organization [employer], [employer] Address [address] [place] [address] Care Team Providers Care Zig Zag Stitcher Name Role Phone [facility] Referring Provider HIM CCA OTHER [...] in the field was performed by my retail operations manager colleague, as noted above, I provided real-time [...] assessment and plan as documented by the retail operations manager. I provided real-time medical direction for this [...] in the field was performed by my retail operations manager colleague, as noted above, I provided real-time [...] Assessment and Plan as documented by the Excel Vba Developer. We discussed the diagnostic uncertainty of home [...] to call 911- verbalized understanding of instruction [email or web address] Not available 03/08/2024 00:03:32 Plan of Treatment Reminders Order Date Submit Date Provider Last Modified By Organization Details Last Modified Time Details Appointments None recorded. Lab BMP, serum or plasma 2023 [email or web address] 0 [facility], [address] [place] [address], [id number], 4 15:47:26 Referral None recorded. Procedures None recorded. Surgeries None recorded. Imaging None recorded. Medication Orders furosemide 10 mg/mL injection solution 2023 024 [email or web address] 0 [facility], [address] [place] [address], [id number], 4 15:47:26 potassium chloride ER 20 mEq tablet,exte nded release 2023 024 [email or web address] 0 [facility], [address] [place] [address], [id number], 4 15:47:26 azithromyci n 250 mg tablet 2022 023 [facility], [address] [place] [address], [id number], 3 12:11:17 Patient TargetsNo targets recorded. Patient [...] Not available Not available Not available 01/30/2024 20547 2 [facility] Available [facility] 4 17:29:12 48572 hydrocodo ne Not available Not available Not available Not available 03/07/2024 5489 RxNorm Not Available [facility] 4 12:41:10 31259 tramadol medicatio n Not available Not available Not available 03/07/2024 54192 [facility] 4 12:41:10 59745 lisinopri l medicatio n Not available Not available Not available 03/07/2024 18662 RxNorm Not Available [facility] 4 12:41:10 7573 albuterol medicatio n Not available Not available Not available 01/26/2024 435 RxNorm Not Available [facility] 4 03:38:23 Medications Name Sig Start Date Stop Date Status Note LastModified by Organization Details LastModified Time medbox status USE DIRECTED active Not Available Not Available No t Available pulse oximet airial [id number] USE TWICE DAILY DIRECTED active Not Available [...] Available Not Available No t Available [employer] [place] Lite kit USE DIRECTED active Not Available [...] Address Organization Details Last Updated DateTime 3 41172.5 36 g 18 /min 98 /min 97 % 97 % 147.32 cm 100.6 [degF] 141 mm[Hg] 53 mm[Hg] Not Available [email or web address] 3 20:20:15 Date Recorded Body temperature Oxygen saturation Oxygen saturation in Arterial blood by Pulse oximetry Respiratory rate Heart rate Systolic blood pressure Diastolic blood pressure Provider Name and Address Organization Details Last Updated DateTime 4 96.3 [degF] 98 % 98 % 18 /min 90 /min 123 mm[Hg] 98 mm[Hg] Not Available [employer] 4 12:44:04 Date Recorded Respiratory rate Heart rate Body height Oxygen saturation Oxygen saturation in Arterial blood by Pulse oximetry Body weight Body temperature Systolic blood pressure Diastolic blood pressure Provider Name and Address Organization Details Last Updated DateTime 4 20 /min 97 /min 147.32 cm 99 % 99 % 01588.6 96 g 98.1 [degF] 116 mm[Hg] 77 mm[Hg] Not Available [employer] 4 19:02:23 Date Recorded Heart rate Body temperature Oxygen saturation Oxygen saturation in Arterial blood by Pulse oximetry Respiratory rate Systolic blood pressure Diastolic blood pressure Provider Name and Address Organization Details Last Updated DateTime 4 96 /min 96.9 [degF] 98 % 98 % 18 /min 151 mm[Hg] 86 mm[Hg] Not Available [employer] 4 15:08:50 Date Recorded Body height Body mass index (BMI) Body weight Provider Name and Address Organization Details Last Updated DateTime 03/07/2024 147.32 cm 26.8 kg/m2 31266.82 g Rosario Maguire MD [address] [place] [address],[address] [facility], [place], [address], [place] - [employer] 03/07/2024 15:26:21 Date Recorded Oxygen saturation Oxygen saturation in Arterial blood by Pulse oximetry Body temperature Respiratory rate Heart rate Systolic blood pressure Diastolic blood pressure Provider Name and Address Organization Details Last Updated DateTime 2 96 % 96 % 98.7 [degF] 18 /min 93 /min 119 mm[Hg] 87 mm[Hg] Not Available [email or web address] 2 20:36:23 Social History None recorded. Functional Status None recorded. Mental Status None recorded. Family History Nothing Reported. Medical History No medical history recorded. Gynecological HistoryNo gynecological history recorded. Obstetrics History GPAL:G 0 P 0 0 0 0 Past Encounters Encounter ID Performer Location Encounter Start Date Encounter Closed Date Diagnosis/Indication Diagnosis SNOMED-CT Code Diagnosis ICD10 Code Diagnosis Note [id number] [facility] [address] [place] [id number] 12/13/2021 20:36:20 12/20/2021 13:30:15 Cellulitis 547406128 L03.90 [id number] Yelena Landaverde MD [facility] [address] [place] [id number] 02/23/2023 20:14:26 02/23/2023 23:04:54 Community acquired pneumonia 827871849 J18.9 Acute exac erbation of chronic obstructive pulmonary disease 461408099 J44.1 [id number] Winsome Díaz MD [facility] [address] [place] [address] [id number] 10/24/2023 12:43:55 10/24/2023 13:07:28 Cat bite [id number] W55.01XA [id number] Yelena Landaverde MD [facility] [address] [place] [id number] 01/30/2024 19:02:19 02/01/2024 00:29:21 Abdominal pain 88640020 R10.9 Suprapubic pain 73993168 6 R10.30 [id number] Rosario Maguire MD [facility] [address] [place] [id number] 03/07/2024 15:08:39 03/08/2024 17:25:37 Peripheral edema 097483002 R60.9 No clinical evidence of CHFBoth legs more edematous than usual, right foot is more swollen than left/no history of trauma but no cords /Homans negative so DVT is unlikely. No warmth or erythema to suggest cellulitis . Primary care team: If patient continues to have pain/sts she will need imaging studies. Patient is quite anemic- her [facility] notes from 02/20 through 02/22/2024 state [...] Sepulveda Member ID Guarantor Name 12/13/2021 1 [employer] - DOS PRIOR TO 2022 - DUAL ELIGIBLE (MEDICARE REPLACEMENT/AD VANTAGE - HMO) Vikki Willis [id number] Vikki Willis 02/23/2023 1 [employer] [facility] [employer] - DOS ON OR AFTER 2022 - DUAL ELIGIBLE - ALF OPTIONS AND ONE CARE (MEDICARE REPLACEMENT/AD VANTAGE - HMO) Vikki Willis [id number] Vikki Willis 10/24/2023 1 [employer] [employer] - DOS ON OR AFTER 2022 - DUAL ELIGIBLE - ALF OPTIONS AND ONE CARE (MEDICARE REPLACEMENT/AD VANTAGE - HMO) Vikki Willis [id number] Vikki Willis 01/30/2024 1 [employer] [employer] - DOS ON OR AFTER 2022 - DUAL ELIGIBLE - ALF OPTIONS AND ONE CARE (MEDICARE REPLACEMENT/AD VANTAGE - HMO) Vikki Willis [id number] Vikki Willis 03/07/2024 1 [employer] [employer] - DOS ON OR AFTER 2022 - DUAL ELIGIBLE - ALF OPTIONS AND ONE CARE (MEDICARE REPLACEMENT/AD VANTAGE - HMO) Vikki Willis [id number] Vikki Willis Notes Date Note Type Note [...] .................... .................... .................... .................... .................... .................... . Excel V[employer] Developer Note: Dispatched for patient with chief complaint of umbilicus discharge. Upon arrival patient presents on wheelchair with normal respirations and alert x 4. Patient states having umbilicus pain and white discharge 3 days ago. Patient states no current pain. Umbilicus appears dry with no signs of erythema, swelling, or infection. [facility] contacted. Patient education given, red flags discussed. .................... .................... .................... .................... .................... .................... .................... . Disposition: Fulfilled Reed Carlos MD [address] [facility],[address], [place], [address], [employer] 12/13/2021 23:49:19 02/23/2023 text/html HPI: HX: JANET, [...] CRC RN DID NOT NEED FURTHER INFO [facility] HPI: runny nose, clear mucous, x 1 mo. seen by PCP, given cough medicine with codeine. last appt w PCP was 1 wk ago. still having productive cough. started corcidin last week 5d ago. using combivent and flovent. no sore throat, and some chest congestion Yelena Landaverde MD [address] [facility],[address], [place], [address], [employer] 02/23/2023 20:29:29 10/24/2023 text/html CRC Nurse Triage Notes (Elizabeth Grijalva): Reason For Request: Patient was bit on the arm by her Kitten. Chief Complaints: Injury PMH: COPD/Asthma, Diabetes, Hypertension Allergies: Albuterol Other Allergies: Vicodin Comments: Medicine Technologist verified the member's name//address and phone number.Member [...] .................... .................... .................... .................... .................... .................... . Excel V[employer] Developer Note From Destini Castro: Pt with significant bite/scratch almendarez from kitten while both kittens in a fight. Kitten not yet fully vaccinated. A&ox3, vss, afebrile; one puncture site actively bleeding at present. C consulted, pt agreeable to go to ER by POV to have wounds irrigated and evaluated for stitches. Hand and wrist wrapped with clean dry dressing. Red flags reviewed. [employer] V[employer] Developer Allergies: Albuterol .................... .................... .................... .................... .................... .................... .................... . Disposition: Chitra Díaz MD [address] [facility],[address], [place], [address], [employer] 10/24/2023 13:07:25 01/30/2024 text/html CRC Nurse Triage Notes (Figueroa Sanders): Reason For Request: Pt reporting problem going number number 2 primarily but notes having problems going number 1 as well Chief Complaints: Abdominal pain PMH: COPD/Asthma, Hypertension, Anxiety Disorder, Chronic Kidney Disease, Depression, Epilepsy/Seizure Disorder, Diabetes Mellitus Type 2 Comments: Medicine Technologist verified the Pt.'s name//address and phone number. [...] scene and unable to make contacted - [place] [employer] contact and will be dispatching a unit [facility] HPI: pain w trying to urinate, like she has to push. some constipation. .................... .................... .................... .................... .................... .................... .................... . Excel V[employer] Developer Note From Bob Ac: Pt chief complaint today of lower abdominal pain most closely related to the Pubic/perineal area. Pt states that she has been having this problem for 4 days prior to [facility] visit. Pt states she has been experiencing [...] Pt is CAOX4 with a GCS of 15[facility] Yelena Landaverde consultedPt expressed that it would be in her best interest to be seen at. Center of higher ability for more testing that [facility] cannot provide. Pt is also educated on the possible negative effects that can occur from waiting up t and including possible . Pt decides to wait till tomorrow for further diagnostics and treatmentPt is educated on red flag S&S and informed to call emergency services if any present. .................... .................... .................... .................... .................... .................... .................... . [facility] Consulted: Yelena Landaverde .................... .................... .................... .................... .................... .................... .................... . Disposition: Fulfilled Yelena Landaverde MD [address] [facility],[address], [place], [address], [facility] - [employer] 01/30/2024 19:47:48 03/07/2024 text/html HPI: Call returned [...] come into walk in center. Agrees to [employer] for evaluation. Confirmed demographics and allergies. .................... .................... .................... .................... .................... .................... .................... . CRC Nurse Triage Notes (Treasure Childers): Chief Complaints: Swelling PMH: COPD/Asthma, Hypertension, Anxiety Disorder, Chronic Kidney Disease, Depression, Epilepsy/Seizure Disorder, Diabetes Mellitus Type 2, Asthma Comments: HPI reviewed Excel Vba Developer Organization Information for [facility] Legal Name: [facility] Transportation Address: [address] [place] [address], [place] [address], Track Grinder: Douglas Bucio MD CLIA No.: [id number] [employer] Developer POC Test Results from [facility] (15:03:32) pH: 7.39 pH units pCO2: 32.2 mmHg pO2: 41.0 mmHg Na: 135 mmol/L K: 3.7 mmol/L iCa: 1.21 mmol/L Cl: 106 mmol/L TCO2: 19.2 mEq/L Hct: 28 % Hb: 9.5 g/dL Glu: 103 mg/dL Lac: 1.3 mmol/L Cr: 0.77 mg/dL BUN: 7 mg/dL A .................... .................... .................... .................... .................... .................... .................... . [employer] V[employer] Developer Note From James Greene: This 63-year-old female [...] .................... .................... .................... .................... .................... .................... . [facility] Consulted: Rosario Maguire .................... .................... .................... .................... .................... .................... .................... . Disposition: Fulfilled SEGMD: Patient denies trauma/she denies history of gout. Although her right foot is more swollen than the left she reports her legs are much more edematous than baseline and they are painful. She was hospitalized at [facility] the week of 02/20 with a potassium of 2 diverticulitis and a UTI. Her hemoglobin was noted to go from 11 down to 8 during that visit with no history of GI bleeding. She also has a PMH including but not limited to: Asthma/COPD/HTN/CHF/ /CKD/DM 2/epilepsy/(iron deficiency anemia, hyponatremia and hypokalemia per PCP note 03/03/2024)./Anxiety and depression. Rosario Maguire MD [address] [place] [address],[address], [place], [address], [employer] 03/08/2024 00:13:48 OBGyn Episode No OBEpisode recorded.
--- OUTSIDE RECORDS SUMMARY | 2024-06-29 15:09 | XMS_ITS | Encounter Summary ---
Author Organization [employer] Address [address] [facility] 7t [place] [address] Care Team Providers Care Quality Assurance Supervisor Chassis Name Role Phone Tenzin April WALKER Primary Care Provider [phone] Eduarda Krishnan MD Unavailable [phone] June Unavailable Encounter Details Date Type Department Care Team (Late st Contact Info) Description 10/09/2023 Orders Only [facility] [address] [place] [address] ProviderRubina MD Social History Tobacco Use Types [...] on filedocumented in this encounter Care Teams Quality Assurance Supervisor Chassis Relationship Specialty Start Date End Date April Dave ANP [address] [place] [address] PCP - General Family Medicine 11/16/20 Eduarda Krishnan MD [address] [place] [address] Hematology and Oncology 06/01/[address] [place] [address] 3rd [place] [address] 06/01/24 documented as of this encounter
--- OUTSIDE RECORDS SUMMARY | 2024-06-29 15:09 | XMS_ITS | Encounter Summary ---
Author Organization [employer] Address [address] [facility] 7t [place] [address] Care Team Providers Care Financial Aid Officer Name Role Phone April Dave Primary Care Provider [phone] Eduarda Krishnan MD Unavailable [phone] June Unavailable Reason for Visit * Reason Comments Med Refill Encounter Details Date Type Department Care Team ([facility] st Contact Info) Description 01/05/2023 Refill [facility] [address] [place] [address] April Dave ANP [address] [place] [address] Depressive disorder Social History Tobacco Use Types [...] classified documented in this encounter Care Teams Financial Aid Officer Relationship Specialty Start Date End Date April Dave ANP [address] [place] [address] PCP - General Family Medicine 11/16/20 Eduarda Krishnan MD [address] [place] [address] Hematology and Oncology 06/01/[address] [place] [address] 3rd [place] [address] 06/01/24 documented as of this encounter
--- OUTSIDE RECORDS SUMMARY | 2024-06-29 15:09 | XMS_ITS | Encounter Summary ---
Author Organization [employer] Address [address] [facility] 7t [place] [address] Care Team Providers Care Deployment Specialist Name Role Phone April Dave AARON Primary Care Provider [phone] Eduarda Krishnan MD Unavailable June Unavailable Reason for Visit * Reason Comments Gynecologic Exam Encounter Details Date Type Department Care Team (Latest Contact Info) Description 06/27/2024 9:30 AM EDT Procedure Visit [facility] [address] [place], [place] [phone] Jayda Yeboah CNM [address] [place], [place] [phone] Cervical cancer screening (Primary Dx); Menopause Social [...] second floor, building has elevator access. No DINKEY SKINNER concerns. Denies urinary/vaginal symptoms. Not sexually active [...] documented as of this encounter Care Teams Deployment Specialist Relationship Specialty Start Date End Date April Dave ANP [address] [place] [address] PCP - General Family Medicine 11/16/20 Eduarda Krishnan MD [address] [place] [address] Hematology and Oncology 06/01/24June [address] [place] [address] 3[address] [place] [address] 06/01/24 documented as of this encounter
--- OUTSIDE RECORDS SUMMARY | 2024-06-29 15:09 | XMS_ITS | Encounter Summary ---
Author Organization [employer] Address [address] [facility] 7t [place] [address] Care Team Providers Care Geodetic Engineer Name Role Phone April Dave Primary Care Provider [phone] Eduarda Krishnan MD Unavailable [phone] June Unavailable Reason for Visit * Reason Comments Med Refill Encounter Details Date Type Department Care Team (Late st Contact Info) Description 06/09/2023 Refill [facility] [address] [place] [address] April Dave ANP [address] [place] [address] Diabetic nephropathy associated with type 2 diabetes [...] Patient states she sees Temitope Rico at [facility] and has a follow-up on 06/30/23. She is not sure whether/when a colonoscopy will be recommended. She states she will fish bait picker folic acid supplement and ropinirole from [...] and/or other concerns arise. TC placed to [facility] pharmacy and they stated they were just [...] (CMS/HCC) documented in this encounter Care Teams Geodetic Engineer Relationship Specialty Start Date End Date April Dave ANP [address] [place] [address] PCP - General Family Medicine 11/16/20 Eduarda Krishnan MD [address] [place] [address] Hematology and Oncology 06/01/24 TrishaJune [address] 3rd [place] [address] 06/01/24 documented as of this encounter
--- OUTSIDE RECORDS SUMMARY | 2024-06-29 15:09 | XMS_ITS | Encounter Summary ---
Author Organization [employer] Address [address] [place] [address] 7 [place] [address] Care Team Providers Care Economic Adviser Name Role Phone April Dave Primary Care Provider [phone] Eduarda Krishnan MD Unavailable [phone] June Unavailable Encounter Details Date Type Department Care Team (Late st Contact Info) Description 02/28/2022 Orders Only [facility] [address] [place] [address] Emily Pitts, RN [address] [place] [address] Social History Tobacco Use Types Packs/Day Years [...] on filedocumented in this encounter Care Teams Economic Adviser Relationship Specialty Start Date End Date April Dave ANP [address] [place] [address] PCP - General Family Medicine 11/16/20 Eduarda Krishnan MD [address] [place] [address] Hematology and Oncology 06/01/24June [address] [place] [address] [address] [facility] [place] [address] 06/01/24 documented as of this encounter
--- OUTSIDE RECORDS SUMMARY | 2024-06-29 15:09 | XMS_ITS | Encounter Summary ---
Author Organization [employer] Address [address] [facility] 7t [place] [address] Care Team Providers Care Managing Jeweler Name Role Phone April Dave Primary Care Provider [phone] Eduarda Krishnan MD Unavailable [phone] June Unavailable Reason for Visit * Reason Onset Date Comments Med Refill 05/27/2024 Encounter Details Date Type Department Care Team (Late st Contact Info) Description 05/27/2024 Telephone [facility] [address] [place], [place] [phone] April Dave ANP [address] [place] [address] Med Refill Social History Tobacco Use Types [...] EST Script was sent on 05/10/24 to [facility]. * Telephone Encounter - Remington Briggs - 05/27/2024 2:48 PM EST TC from pt requesting medication refill. Medications needing refill : rOPINIRole (Requip) 1 MG tablet To be sent to: [facility] - [place], [place] - [address] [facility] Pt states that she dosent have any more left. documented in this encounter Plan of Treatment Not on file documented as of this encounter Visit Diagnoses Not on filedocumented in this encounter Additional Health Concerns Assessment Noted Time PHQ-9 Depression Total Score: 1 12/31/19 24 10:03 AM EDT documented as of this encounter Care Teams Managing Jeweler Relationship Specialty Start Date End Date April Dave ANP [address] [place] [address] PCP - General Family Medicine 11/16/20 Eduarda Krishnan MD [address] [place] [address] Hematology and Oncology 06/01/[address] 3rd [place] [address] 06/01/24 documented as of this encounter
--- OUTSIDE RECORDS SUMMARY | 2024-06-29 15:09 | XMS_ITS | Encounter Summary ---
Author Organization [employer] Address [address] [facility] 7t [place] [address] Care Team Providers Care Tire Center Supervisor Name Role Phone April Dave Primary Care Provider [phone] Eduarda Krishnan MD Unavailable [phone] June Unavailable Reason for Visit * Reason Onset Date Comments Hospital Follow-up 12/16/2023 Encounter Details Date Type Department Care Team (Late st Contact Info) Description 12/16/2023 Telephone [facility] [address] [place] [address] April Dave ANP [address] [place] [address] Hospital Follow-up Social History Tobacco Use Types [...] from pt requesting a HDF appt. Hospital: [facility] Date of admission: 12/09/23 Discharge date: 12/11/23 Diagnosed: Hand Surgery documented in this encounter Plan of Treatment Not on file documented as of this encounter Visit Diagnoses Not on filedocumented in this encounter Care Teams Tire Center Supervisor Relationship Specialty Start Date End Date April Dave ANP [address] [place] [address] PCP - General Family Medicine 11/16/20 Eduarda Krishnan MD [address] [place] [address] Hematology and Oncology 06/01/24June 11 [facility] 3rd [place] [address] 06/01/24 documented as of this encounter
--- OUTSIDE RECORDS SUMMARY | 2024-06-29 15:09 | XMS_ITS | Clinical Summary ---
Author Organization [facility] Address [address] [place] [address] [address] [address] Phone Care Team Providers Care Paint Stripper Name Role Phone Inez Dewitt NP Primary Care Provider [phone] Allergies Active Allergy Reactions Criticality Noted Date [...] by mouth 2 Active UltiCare Mini Pen Jackson 31G X 6 MM misc USE FOUR [...] Communication [facility] [address] [place] [phone] Alan Nash MD 05/10/2024 Refill [facility] [address] [place] [phone] Alan Nash MD from Last 3 Months [...] Visit [facility] [address] [place] [address] Alan Nash MD [address] [facility] [address] [place] [address] Health Maintenance Due Date Last Done Comments Breast Cancer Screening 1960 Colorectal Cancer Screening: Annual FOBT 2009 Colorectal Cancer Screening: Colonoscopy 2009 Colorectal Cancer Screening: Sigmoidoscopy 2009 Diabetes: Ophthalmology Exam 04/29/2020 Diabetes: Pedal Pulse Checked 04/29/2020 Diabetes: Sensory Foot Exam 04/29/2020 Diabetes: Visual Foot Exam 04/29/2020 Diabetes: Hemoglobin A1C 07/21/2024 025, 12/31/2023, 05/05/2023 Influenza Vaccine (Season Ended) 2024 05/15/2022, 03/04/2021, 02/07/2020, Additional history exists Hepatitis B Vaccine Aged Out 08/17/2017, 02/03/2017, 09/24/2016, Additional history exists No longer eligible based on patient's age to complete this topic Pneumococcal Vaccine: Pediatrics (0 to 5 Years) and At-Risk Patients (6 to 64 Years) Completed 07/01/2023, 11/07/2014, 07/27/2014, Additional history exists Insurance ([id number]) [place] [address] ([id number]) Care Teams Paint Stripper Relationship Specialty Start Date End Date Inez Dewitt NP [address] [place] [address] PCP - General 04/09/20
--- OUTSIDE RECORDS SUMMARY | 2024-06-29 15:09 | XMS_ITS | Clinical Summary ---
Author Organization 175 [facility] Address [address] [place] [address] Phone Care Team Providers Care Link Cutter Name Role Phone April Dave NP Primary Care Provider [phone] Social History Tobacco Use Types Packs/Day Years Used Date Smoking Tobacco: Never Assessed Comments Unknown Sex and Gender Information Value Date Recorded Sex Assigned at Not on file Legal Sex Female 9:35 AM EST Gender Identity Not on file Sexual Orientation Not on file Plan of Treatment Upcoming Encounters Date Type Department Care Team ([facility] st Contact Info) Description 08/17/2024 1:30 PM EDT Consult Orthopedic Surgery - [place] [address] [phone] Terell Nicholas DPM [address] [address] Health Maintenance Due Date Last Done Comments Breast Cancer Screening 1960 DTaP,Tdap,and Td Vaccines (1 - Tdap) 1979 Cervical Cancer Screening: P ap Smear 1981 Pneumococcal Vaccine: 50+ Ye ars (1 of 1 - PCV) 2010 Zoster Vaccines (1 of 2) 2010 COVID-19 Vaccine (2023-2 5 season) 2023 Influenza Vaccine (#1) 2023 Colorectal Cancer Screening: Colonoscopy 01/23/2024 Depression Screening 01/23/2024 HIV Screening 01/23/2024 Hepatitis C Screening 01/23/2024 Medicare Annual Wellness Visit 01/23/2024 Social Influencers of Health Screening 01/23/2024 RSV Immunization Adult Patie nts (1 - 1-dose 75+ series) 2035 HIB [...] patient's age to complete this topic Insurance [employer] MEDICARE Member Subscriber Plan / Payer (Ef fective 2016-Present) Name:Vikki Willis Relation to Subscriber:Self Name:Vikki Willis Payer ID:[id number] Group ID:[id number] Type:Not on file Address: [place] [address] [address] [phone] Care Teams Link Cutter Relationship Specialty Start Date End Date April Dave, GLASS RIBBON MACHINE OPERATOR [address] [place] [phone] PCP - General 01/05/24
== END 2024-06-29 12:42 | disposition home or self-care (01) ==
LOC: HO.US 12:41
PROVIDERS: PCP Nurse Practitioner Primary Care; Visit Provider Emergency Medicine
DX: R19.8 Other specified symptoms and signs involving the digestive system and abdomen (principal)
CPT/HCPCS: 76705

== ENCOUNTER → 2024-06-29 12:45 | Outpatient (BNV) | payer OTHER, SELFPAY | PROVIDERS: PCP Nurse Practitioner Primary Care; Visit Provider Radiology Diagnostic Radiology | DX: R10.819 Abdominal tenderness, unspecified site (principal) | CPT/HCPCS: 76705 ==

== ENCOUNTER → 2024-07-06 18:01 | Outpatient (BNV) | payer OTHER, SELFPAY | PROVIDERS: PCP Nurse Practitioner Primary Care; Visit Provider Radiology Diagnostic Radiology | DX: M25.512 Pain in left shoulder (principal) | CPT/HCPCS: 73221 ==

== ENCOUNTER 2024-07-06 18:04 | Outpatient (REF) | payer OTHER, SELFPAY ==
--- NOTE | ~2024-07-06 | MR_ITS ---
EXAMINATION: MR SHOULDER, LEFT CLINICAL INFORMATION: Left shoulder pain and left upper extremity weakness, history of falls. COMPARISON: None TECHNIQUE: Multiplanar multisequence MR imaging of the left shoulder was done without IV contrast. Examination performed on a 1.5 [employer] Siemens unit utilizing standard sequences. FINDINGS: Rotator Cuff and Biceps Tendon: Supraspinatus: There is no discrete tear. There is diffusely increased signal throughout the distal tendon consistent with tendinopathy. Normal muscle belly. Infraspinatus: Intact and normal in signal. Mildly increased signal of the distal tendon consistent with tendinopathy. Normal muscle belly. Subscapularis: Intact and normal in signal. Normal muscle belly. Teres Minor: Intact and normal in signal. Normal muscle belly. Biceps Long Head: Normally located within the bicipital groove. Mildly increased fluid in the tendon sheath. Normal morphology. The tendon in the rotator interval appears normal. AC Joint and Acromiohumeral Arch: There is extensive periarticular edema of the AC joint, with an AC joint effusion, and moderate to severe superior surface spurring. There is moderate undersurface spurring. There are subtle subchondral cystic changes in the joint. In the setting of trauma, cannot exclude a low-grade AC joint injury. There is mild supraspinatus outlet narrowing. There is a type III acromion. Glenohumeral Joint and Labrum: There is normal joint fluid. There are mild osteoarthritic changes in the joint without significant cartilaginous defect or subchondral bone plate edema. There is linear irregular signal through the superior labrum suggestive of superior labral tearing. The anterior, posterior, and inferior labrum appear grossly intact. Osseous Structures: As above. In addition, there is mild edema within the superior glenoid, extending into the base of the coracoid process, possibly degenerative or related to bone contusion in the setting of trauma. Spino-glenoid Notch: Normal. Quadrilateral Space: Normal. Other: Mild increased signal in the subacromial/subdeltoid bursa suggestive of mild bursitis. The glenohumeral ligaments are intact without significant thickening. MR/MR shoulder LT wo con IMPRESSION: 1. Superior labral tear. Mild edema within the superior glenoid extending into the base of the coracoid process, possibly degenerative although could be contusional in the setting of recent trauma. 2. Severe AC joint arthritis and spurring, with marked periarticular edema. In the setting of trauma, a low-grade AC joint injury should be considered. 3. No definite rotator cuff tear. Tendinopathy of the supraspinatus greater than infraspinatus tendons. 4. Mild subacromial/subdeltoid bursitis. Electronically signed by: Deni Stanley MD 07/07/2024 09:02 AM EDT
--- OUTSIDE RECORDS SUMMARY | 2024-07-06 18:07 | XMS_ITS | Data Portability ---
Author Organization [employer] [place] [facility] Address [address] [place] [address] Care Team Providers Care Ground Equipment Mechanic Name Role Phone [facility] Referring Provider HIM CCA OTHER Assessment [...] in the field was performed by my auditor medical claims colleague, as noted above, I provided real-time [...] assessment and plan as documented by the auditor medical claims. I provided real-time medical direction for this [...] in the field was performed by my auditor medical claims colleague, as noted above, I provided real-time [...] Assessment and Plan as documented by the Electrical Equipment Assembler. We discussed the diagnostic uncertainty of home [...] to call 911- verbalized understanding of instruction [email or web address] Not available 03/08/2024 00:03:32 Plan of Treatment Reminders Order Date Submit Date Provider Last Modified By Organization Details Last Modified Time Details Appointments None recorded. Lab BMP, serum or plasma 2023 [address]24 [email or web address], [address] 15:47:26 Referral None recorded. Procedures None recorded. Surgeries None recorded. Imaging None recorded. Medication Orders furosemide 10 mg/mL injection solution 2023 024 [email or web address] 0 [facility], [address] [place] [address], [id number], 4 15:47:26 potassium chloride ER 20 mEq tablet,exte nded release 2023 024 [email or web address] 0 [facility], [address] [place] [address], [id number], 4 15:47:26 azithromyci n 250 mg tablet 2022 023 [facility], [address] [place] [address], [id number], 3 12:11:17 Patient TargetsNo targets recorded. Patient [...] Name and Address Organization Details Recorded Time 01960 acetamino phen / hydrocodo ne medicatio n Not available Not available Not available 01/30/2024 98222 2 RxNorm Not Available [facility] - production 4 17:29:12 96889 hydrocodo ne Not available Not available Not available Not available 03/07/2024 5489 RxNorm Not Available [facility] - production 4 12:41:10 20784 tramadol medicatio n Not available Not available Not available 03/07/2024 35908 RxNorm Not Available [facility] 4 12:41:10 46817 lisinopri l medicatio n Not available Not available Not available 03/07/2024 96477 RxNorm Not Available [facility] - production 4 12:41:10 7573 albuterol medicatio n Not available Not available Not available 01/26/2024 435 RxNorm Not Available [facility] emergency department 4 03:38:23 Medications Name Sig Start Date Stop Date Status Note LastModified by Organization Details LastModified Time medbox status USE DIRECTED active Not Available Not Available No t Available pulse oximet airial [id number] USE TWICE DAILY DIRECTED active Not Available [...] Not Available Not Available No t Available Lantus Solostar U-100 Insulin 100 unit/mL (3 mL) subcutaneous pen INJECT 16 UNITS SUBCUTANEOU SLY ONCE DAILY IN THE EVENING. MAY ADJUST DOSE DIRECTED active Not Available Not Available No t Available FreeStyle Cisco Lite kit USE DIRECTED active Not Available [...] Address Organization Details Last Updated DateTime 3 07535.5 36 g 18 /min 98 /min 97 % 97 % 147.32 cm 100.6 [degF] 141 mm[Hg] 53 mm[Hg] Not Available [employer] 3 20:20:15 Date Recorded Body temperature Oxygen saturation Oxygen saturation in Arterial blood by Pulse oximetry Respiratory rate Heart rate Systolic blood pressure Diastolic blood pressure Provider Name and Address Organization Details Last Updated DateTime 4 96.3 [degF] 98 % 98 % 18 /min 90 /min 123 mm[Hg] 98 mm[Hg] Not Available [employer] 4 12:44:04 Date Recorded Respiratory rate Heart rate Body height Oxygen saturation Oxygen saturation in Arterial blood by Pulse oximetry Body weight Body temperature Systolic blood pressure Diastolic blood pressure Provider Name and Address Organization Details Last Updated DateTime 4 20 /min 97 /min 147.32 cm 99 % 99 % 51165.6 96 g 98.1 [degF] 116 mm[Hg] 77 mm[Hg] Not Available [employer] 4 19:02:23 Date Recorded Heart rate Body temperature Oxygen saturation Oxygen saturation in Arterial blood by Pulse oximetry Respiratory rate Systolic blood pressure Diastolic blood pressure Provider Name and Address Organization Details Last Updated DateTime 4 96 /min 96.9 [degF] 98 % 98 % 18 /min 151 mm[Hg] 86 mm[Hg] Not Available [employer] 4 15:08:50 Date Recorded Body height Body mass index (BMI) Body weight Provider Name and Address Organization Details Last Updated DateTime 03/07/2024 147.32 cm 26.8 kg/m2 25182.82 g Rosario Maguire MD [address] [place] [address],[address], [place], [address] [employer] 03/07/2024 15:26:21 Date Recorded Oxygen saturation Oxygen saturation in Arterial blood by Pulse oximetry Body temperature Respiratory rate Heart rate Systolic blood pressure Diastolic blood pressure Provider Name and Address Organization Details Last Updated DateTime 2 96 % 96 % 98.7 [degF] 18 /min 93 /min 119 mm[Hg] 87 mm[Hg] Not Available [employer] 2 20:36:23 Social History None recorded. Functional Status None recorded. Mental Status None recorded. Family History Nothing Reported. Medical History No medical history recorded. Gynecological HistoryNo gynecological history recorded. Obstetrics History GPAL:G 0 P 0 0 0 0 Past Encounters Encounter ID Performer Location Encounter Start Date Encounter Closed Date Diagnosis/Indication Diagnosis SNOMED-CT Code Diagnosis ICD10 Code Diagnosis Note [id number] Reed Carlos MD [address] [address] 12/13/2021 20:36:20 12/20/2021 13:30:15 Cellulitis 456212033 L03.90 [id number] Yelena Landaverde MD [address] [address] 02/23/2023 20:14:26 02/23/2023 23:04:54 Community acquired pneumonia 071462812 J18.9 Acute exac erbation of chronic obstructive pulmonary disease 821404174 J44.1 [id number] Winsome Díaz MD [facility] [address] [place] [phone] 10/24/2023 12:43:55 10/24/2023 13:07:28 Cat bite [id number] W55.01XA [id number] Yelena Landaverde MD [facility] [address] [place] [phone] 01/30/2024 19:02:19 02/01/2024 00:29:21 Abdominal pain 50908901 R10.9 Suprapubic pain 69346133 6 R10.30 [id number] Rosario Maguire MD [facility] [address] [place] [address] 03/07/2024 15:08:39 03/08/2024 17:25:37 Peripheral edema 663679601 R60.9 No clinical evidence of CHFBoth legs more edematous than usual, right foot is more swollen than left/no history of trauma but no cords /Homans negative so DVT is unlikely. No warmth or erythema to suggest cellulitis . Primary care team: If patient continues to have pain/sts she will need imaging studies. Patient is quite anemic- her [facility] notes from 02/20 through 02/22/2024 state her [...] Sepulveda Member ID Guarantor Name 12/13/2021 [facility] PRIOR TO 2022 - DUAL ELIGIBLE (MEDICARE REPLACEMENT/AD VANTAGE - HMO) Vikki Willis [id number] Vikki Willis 02/23/2023 1 [facility] - DOS ON OR AFTER 2022 - DUAL ELIGIBLE - RESIDENTIAL OPTIONS AND ONE CARE (MEDICARE REPLACEMENT/AD VANTAGE - HMO) Vikki Willis [id number] Vikki Willis 10/24/2023 1 [facility] [employer] [facility] - DOS ON OR AFTER 2022 - DUAL ELIGIBLE - RESIDENTIAL OPTIONS AND ONE CARE (MEDICARE REPLACEMENT/AD VANTAGE - HMO) Vikki Willis [id number] Vikki Willis 01/30/2024 1 [facility] [employer] [facility] - DOS ON OR AFTER 2022 - DUAL ELIGIBLE - RESIDENTIAL OPTIONS AND ONE CARE (MEDICARE REPLACEMENT/AD VANTAGE - HMO) Vikki Willis [id number] Vikki Willis 03/07/2024 1 [facility] - DOS ON OR AFTER 2022 - DUAL ELIGIBLE - RESIDENTIAL OPTIONS AND ONE CARE (MEDICARE REPLACEMENT/AD VANTAGE - HMO) Vikki Willis [id number] Vikki Willis Notes Date Note Type Note Provider Name and Address Organization Details Recorded Time 12/13/2021 text/html HPI: ALLERGIES; SHANAE INHIBITORS, HYDROCODONE BITARTRATE Seizure disorder,DM, GeRD depression. Patient with four days of white liquid discharge from umbilicus. .................... .................... .................... .................... .................... .................... .................... . CRC Nursing Assessment: Comments: spoke with charleenlexi nurse , member is safe and stable to wait till 12/14> denies fever/ chills Attempted to reach member , no contact .................... .................... .................... .................... .................... .................... .................... . Electrical Equipment Assembler Note: Dispatched for patient with chief complaint of umbilicus discharge. Upon arrival patient presents on wheelchair with normal respirations and alert x 4. Patient states having umbilicus pain and white discharge 3 days ago. Patient states no current pain. Umbilicus appears dry with no signs of erythema, swelling, or infection. [facility] contacted. Patient education given, red flags discussed. .................... .................... .................... .................... .................... .................... .................... . Disposition: Fulfilled Reed Carlos MD [address] [facility],[address], [place], [address], [employer] 12/13/2021 23:49:19 02/23/2023 text/html HPI: HX: JANET, [...] CRC RN DID NOT NEED FURTHER INFO [facility] HPI: runny nose, clear mucous, x 1 mo. seen by PCP, given cough medicine with codeine. last appt w PCP was 1 wk ago. still having productive cough. started corcidin last week 5d ago. using combivent and flovent. no sore throat, and some chest congestion Yelena Landaverde MD [address] [facility],[address], [place], [address], [employer] 02/23/2023 20:29:29 10/24/2023 text/html CRC Nurse Triage Notes (Elizabeth Grijalva): Reason For Request: Patient was bit on the arm by her Kitten. Chief Complaints: Injury PMH: COPD/Asthma, Diabetes, Hypertension Allergies: Albuterol Other Allergies: Vicodin Comments: Director General verified the member's name//address and phone number.Member [...] .................... .................... .................... .................... .................... .................... . Electrical Equipment Assembler Note From Destini Castro: Pt with significant bite/scratch almendarez from kitten while both kittens in a fight. Kitten not yet fully vaccinated. A&ox3, vss, afebrile; one puncture site actively bleeding at present. [facility] consulted, pt agreeable to go to ER by POV to have wounds irrigated and evaluated for stitches. Hand and wrist wrapped with clean dry dressing. Red flags reviewed. Electrical Equipment Assembler Allergies: Albuterol .................... .................... .................... .................... .................... .................... .................... . Disposition: Chitra Díaz MD [address] [facility],[address], [place], [address], [employer] 10/24/2023 13:07:25 01/30/2024 text/html CRC Nurse Triage Notes (Figueroa Sanders): Reason For Request: Pt reporting problem going number number 2 primarily but notes having problems going number 1 as well Chief Complaints: Abdominal pain PMH: COPD/Asthma, Hypertension, Anxiety Disorder, Chronic Kidney Disease, Depression, Epilepsy/Seizure Disorder, Diabetes Mellitus Type 2 Comments: Director General verified the Pt.'s name//address and phone number. [...] scene and unable to make contacted - [place] [employer] contact and will be dispatching a unit [facility] HPI: pain w trying to urinate, like she has to push. some constipation. .................... .................... .................... .................... .................... .................... .................... . Electrical Equipment Assembler Note From Bob Ac: Pt chief complaint today of lower abdominal pain most closely related to the Pubic/perineal area. Pt states that she has been having this problem for 4 days prior to [facility] visit. Pt states she [...] Pt is CAOX4 with a GCS of 15[facility] Yelena Landaverde consultedPt expressed that it would be in her best interest to be seen at. [place] of higher ability for more testing that [facility] cannot provide. Pt is also educated on the possible negative effects that can occur from waiting up t and including possible . Pt decides to wait till tomorrow for further diagnostics and treatmentPt is educated on red flag S&S and informed to call emergency services if any present. .................... .................... .................... .................... .................... .................... .................... . [facility] Consulted: Yelena Landaverde .................... .................... .................... .................... .................... .................... .................... . Disposition: Fulfilled Yelena Landaverde MD [address] [facility],[address], [place], [address], [facility] - [employer] 01/30/2024 19:47:48 03/07/2024 text/html HPI: Call returned [...] come into walk in center. Agrees to [facility] for evaluation. Confirmed demographics and allergies. .................... .................... .................... .................... .................... .................... .................... . CRC Nurse Triage Notes (Treasure Childers): Chief Complaints: Swelling PMH: COPD/Asthma, Hypertension, Anxiety Disorder, Chronic Kidney Disease, Depression, Epilepsy/Seizure Disorder, Diabetes Mellitus Type 2, Asthma Comments: HPI reviewed Electrical Equipment Assembler Organization [facility] Legal Name: [facility] Address: [address] [place] [address], [place] [address], Systems Support Engineer: Douglas Bucio MD [place] No.: [id number] Electrical Equipment Assembler POC Test Results from [facility] (15:03:32) pH: 7.39 pH units pCO2: 32.2 mmHg pO2: 41.0 mmHg Na: 135 mmol/L K: 3.7 mmol/L iCa: 1.21 mmol/L Cl: 106 mmol/L TCO2: 19.2 mEq/L Hct: 28 % Hb: 9.5 g/dL Glu: 103 mg/dL Lac: 1.3 mmol/L Cr: 0.77 mg/dL BUN: 7 mg/dL A .................... .................... .................... .................... .................... .................... .................... . Electrical Equipment Assembler Note From James Greene: This 63-year-old female [...] .................... .................... .................... .................... .................... .................... . [facility] Consulted: Rosario Maguire .................... .................... .................... .................... .................... .................... .................... . Disposition: Fulfilled SEGMD: Patient denies trauma/she denies history of gout. Although her right foot is more swollen than the left she reports her legs are much more edematous than baseline and they are painful. She was hospitalized at [facility] the week of 02/20 with a potassium of 2 diverticulitis and a UTI. Her hemoglobin was noted to go from 11 down to 8 during that visit with no history of GI bleeding. She also has a PMH including but not limited to: Asthma/COPD/HTN/CHF/ /CKD/DM 2/epilepsy/(iron deficiency anemia, hyponatremia and hypokalemia per PCP note 03/03/2024)./Anxiety and depression. Rosario Maguire MD [address] [facility],[address], [place], [address], [employer] 03/08/2024 00:13:48 OBGyn Episode No OBEpisode recorded.
--- OUTSIDE RECORDS SUMMARY | 2024-07-06 18:07 | XMS_ITS | Clinical Summary ---
Author Organization 175 [facility] Address [address] [place] [address] Phone Care Team Providers Care Salesperson Art Objects Name Role Phone April Dave NP Primary Care Provider [phone] Social History Tobacco Use Types Packs/Day Years Used Date Smoking Tobacco: Never Assessed Comments Unknown Sex and Gender Information Value Date Recorded Sex Assigned at Not on file Legal Sex Female 9:35 AM EST Gender Identity Not on file Sexual Orientation Not on file Plan of Treatment Upcoming Encounters Date Type Department Care Team ([facility] st Contact Info) Description 08/17/2024 1:30 PM EDT Consult Orthopedic Surgery - [place] [address] [phone] Terell Nicholas DPM [address] [address] Health Maintenance Due Date Last Done Comments Breast Cancer Screening 1960 DTaP,Tdap,and Td Vaccines (1 - Tdap) 1979 Cervical Cancer Screening: P ap Smear 1981 Pneumococcal Vaccine: 50+ Ye ars (1 of 1 - PCV) 2010 Zoster Vaccines (1 of 2) 2010 COVID-19 Vaccine (2023-2 5 season) 2023 Colorectal Cancer Screening: Colonoscopy 01/23/2024 Depression Screening 01/23/2024 HIV Screening 01/23/2024 Hepatitis C Screening 01/23/2024 Medicare Annual Wellness Visit 01/23/2024 Social Influencers of Health Screening 01/23/2024 Influenza Vaccine (Season Ended) 2024 RSV Immunization Adult Patie nts (1 - [...] age to complete this topic Meningococcal B Vaccine Aged Out No l onger eligible based on patient's age to complete [...] age to complete this topic Insurance [address] [place] [address] [employer] MEDICARE Member Subscriber Plan / Payer (Ef fective 2016-Present) Name:Vikki Willis Relation to Subscriber:Self Name:Vikki Willis Payer ID:[id number] Group ID:[id number] Type:Not on file Address: [place] [address] [address] [phone] Care Teams Salesperson Art Objects Relationship Specialty Start Date End Date April Dave NP [address] [place] [phone] PCP - General 01/05/24
--- OUTSIDE RECORDS SUMMARY | 2024-07-06 18:07 | XMS_ITS | Clinical Summary ---
Author Organization [facility] Address [address] [place] [address] [address] [address] Phone Care Team Providers Care Wearing Apparel Shaker Name Role Phone Inez Dewitt NP Primary Care Provider [phone] Allergies Active Allergy Reactions Criticality Noted Date [...] by mouth 2 Active UltiCare Mini Pen [place] 31G X 6 MM misc USE FOUR [...] Communication [facility] [address] [place] [phone] Alan Nash MD 05/10/2024 Refill [facility] [address] [place] [phone] Alan Nash MD from Last 3 Months [...] Visit [facility] [address] [place] [address] Alan Nash MD [address] [facility] [address] [place] [address] Health Maintenance Due Date Last Done Comments [...] 11/07/2014, 07/27/2014, Additional history exists Insurance ([id number]) [place] [address] ([id number]) Care Teams Wearing Apparel Shaker Relationship Specialty Start Date End Date Inez Dewitt NP [address] [place] [address] PCP - General 04/09/20
== END 2024-07-06 18:05 | disposition home or self-care (01) ==
LOC: HO.MRI 18:04
PROVIDERS: PCP Nurse Practitioner Primary Care; Visit Provider Nurse Practitioner Primary Care
DX: M25.512 Pain in left shoulder (principal); G89.29 Other chronic pain; R29.898 Other symptoms and signs involving the musculoskeletal system
CPT/HCPCS: 73221

== ENCOUNTER 2024-07-07 09:53 | Outpatient (RCR) | payer OTHER, SELFPAY | END 2024-07-14 10:58 | disposition home or self-care (01) | LOC: HO.OT 09:53 | PROVIDERS: PCP Nurse Practitioner Primary Care; Visit Provider Orthopaedic Surgery | DX: S66.812D Strain of other specified muscles, fascia and tendons at wrist and hand level, left hand, subsequent encounter (principal) | CPT/HCPCS: 29130; 97165; 97760 ==

== ENCOUNTER 2024-08-02 16:29 | Outpatient (REF) | payer OTHER, SELFPAY ==
--- OUTSIDE RECORDS SUMMARY | 2024-08-02 17:06 | XMS_ITS | Data Portability ---
Author Organization [facility] in - Staff Ranker Address [address] [place] [id number] Care Team Providers Care Creative Intern Name Role Phone [facility] Referring Provider HIM CCA OTHER Assessment Encounter Date Assessment Date Assessment LastModified by Organization Details LastModified Time 02/23/2023 02/23/2023 As noted, we were called to see this patient regarding concerns of Evaluation in the field was performed by my lead dental assistant colleague, as noted above, I provided real-time [...] assessment and plan as documented by the lead dental assistant. I provided real-time medical direction for this [...] in the field was performed by my lead dental assistant colleague, as noted above, I provided real-time [...] Assessment and Plan as documented by the Ecosystem Ecology Professor. We discussed the diagnostic uncertainty of home [...] to call 911- verbalized understanding of instruction Not available 03/08/2024 00:03:32 07/27/2024 07/27/2024 Impression: 64yo/f with multiple chronic medical conditions as documented in chart who presents with 1 day of sore throat symptoms. Patient states has been in usual state of health, she does have some chronic rhinorrhea and other ENT symptoms related to allergies. She states was otherwise feeling well today, she awoke normally, went to take her morning pills, she noticed some pain with swallowing. Describes as a burning sensation. States wanted to be check out due to the symptoms, called for evaluation. For medic on scene patient is awake, alert, well appearing, in no distress. Breathing comfortably, speaking comfortably, swallowing comfortably. Patient states normally has an elevated pulse rate, states last clinic visit was in the 110s on multiple rechecks. She is otherwise afebrile, normotensive, no hypoxia. States symptoms have been gradually improving throughout the day. Has some mild discomfort with swallowing, but no sensation of foreign body, no neck pain or chest pain associated. No drooling or excessive secretions, no tongue swelling or floor of the mouth swelling. No associated fevers/chills, nausea/vomiting, dyspnea, or other systemic symptoms of illness at this time. On medic exam her oropharynx has some mild erythema but atraumatic, without exudates or ulcerations, no asymmetry or abscess. Neck is soft and supple and benign. Patient is already tolerating solids and liquids normally. Lungs are CTAB, abdomen is benign. She denies other ROS. Plan: Patient with isolated pain with swallowing today that is already improving. There is no foreign body sensation, and no respiratory symptoms or difficulty swallowing at this time. 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 Unclear if this is mechanical irritation at all related to her pills or just a viral sore throat that started today. Regardless patient is stable for continued observation of her symptoms at home today, PMD followup in 1-2 days if symptoms persist, and instructions to seek care immediately with any acute worsening or change in symptoms which she understands. Primary care, consider 48 hour followup Disposition: We discussed the diagnostic uncertainty of home visits and the risk associated with this. In this case, the patient and I felt this to be an acceptable and reasonable amount of risk given the benefit of avoiding an ED visit. We discussed the need to seek care urgently/emergen tly in the setting of any new or worsening serious symptoms Not available 07/27/2024 13:02:59 Plan of Treatment Reminders Order Date Submit Date Provider Last Modified By Organization Details Last Modified Time Details Appointments None recorded. Lab rapid SARS CoV 2 Ag, QL IA, respiratory specimen [address], [id number] 5 14:30:50 rapid flu (A+B) [address], [id number] 5 14:28:58 rapid strep group A, throat [address], [id number] 5 14:32:11 BMP, serum or plasma 2023 024 [email or web address] 0 [facility], [address] [place] [address], [id number] 4 15:47:26 Referral None recorded. Procedures None recorded. Surgeries None recorded. Imaging None recorded. Medication Orders furosemide 10 mg/mL injection solution 2023 024 [email or web address] 0 [facility], [address] [place] [address], [id number], 4 15:47:26 potassium chloride ER 20 mEq tablet,exte nded release 2023 024 [email or web address] 0 [facility], [address] [place] [address], [id number], 4 15:47:26 azithromyci n 250 mg tablet 2022 023 [facility], [address] [place] [address], [id number], 3 12:11:17 Patient TargetsNo targets recorded. Patient [...] Name and Address Organization Details Recorded Time 61932 acetamino phen / hydrocodo ne medicatio n Not available Not available Not available 01/30/2024 17400 2 [facility] 4 17:29:12 97321 hydrocodo ne Not available Not available Not available Not available 03/07/2024 5489 RxNorm [facility] 4 12:41:10 05631 tramadol medicatio n Not available Not available Not available 03/07/2024 35089 RxNorm [facility] 4 12:41:10 66950 lisinopri l medicatio n Not available Not available Not available 03/07/2024 07382 RxNorm Not [facility] 4 12:41:10 7573 albuterol medicatio n Not available Not available Not available 01/26/2024 435 RxNorm Not Available [facility] 4 03:38:23 Medications Name Sig Start Date Stop Date Status Note LastModified by Organization Details LastModified Time medbox status USE DIRECTED active Not Available Not Available No t Available pulse oximet airial [id number] USE TWICE DAILY DIRECTED active Not Available [...] Available Not Available No t Available FreeStyle Cunningham Lite kit USE DIRECTED active Not Available [...] 2023 active Not Available Not Available Not Asa lopez Proctosol HC 2.5 % topical cream perineal applicator APPLY RECTALLY TWICE DAILY FOR HEMORRHOIDS active Not Available Not Available Not Available Vitals Date Recorded Body weight Respiratory rate Heart rate Oxygen saturation Oxygen saturation in Arterial blood by Pulse oximetry Body height Body temperature Systolic blood pressure Diastolic blood pressure Provider Name and Address Organization Details Last Updated DateTime 3 44771.5 36 g 18 /min 98 /min 97 % 97 % 147.32 cm 100.6 [degF] 141 mm[Hg] 53 mm[Hg] Not Available [facility] - production 3 20:20:15 Date Recorded Body temperature Oxygen saturation Oxygen saturation in Arterial blood by Pulse oximetry Respiratory rate Heart rate Systolic blood pressure Diastolic blood pressure Provider Name and Address Organization Details Last Updated DateTime 4 96.3 [degF] 98 % 98 % 18 /min 90 /min 123 mm[Hg] 98 mm[Hg] Not Available [employer] 4 12:44:04 Date Recorded Respiratory rate Heart rate Body height Oxygen saturation Oxygen saturation in Arterial blood by Pulse oximetry Body weight Body temperature Systolic blood pressure Diastolic blood pressure Provider Name and Address Organization Details Last Updated DateTime 4 20 /min 97 /min 147.32 cm 99 % 99 % 09093.6 96 g 98.1 [degF] 116 mm[Hg] 77 mm[Hg] Not Available [employer] - 4 19:02:23 Date Recorded Heart rate Body temperature Oxygen saturation Oxygen saturation in Arterial blood by Pulse oximetry Respiratory rate Systolic blood pressure Diastolic blood pressure Provider Name and Address Organization Details Last Updated DateTime 4 96 /min 96.9 [degF] 98 % 98 % 18 /min 151 mm[Hg] 86 mm[Hg] Not Available [employer] 4 15:08:50 Date Recorded Body height Body mass index (BMI) Body weight Provider Name and Address Organization Details Last Updated DateTime 03/07/2024 147.32 cm 26.8 kg/m2 23078.82 g Rosario Maguire MD [address] [place] [address],[address] [facility], [place], [place], [address] [place] [address] - [employer] 03/07/2024 15:26:21 Date Recorded Body temperature Body height Body weight Oxygen saturation Oxygen saturation in Arterial blood by Pulse oximetry Respiratory rate Heart rate Systolic blood pressure Diastolic blood pressure Provider Name and Address Organization Details Last Updated DateTime 5 97.5 [degF] 144.78 cm 88991.6 72 g 98 % 98 % 18 /min 110 /min 108 mm[Hg] 66 mm[Hg] Not Available [employer] 5 12:53:59 Social History None recorded. Functional Status None recorded. Mental Status None recorded. Family History Nothing Reported. Medical History No medical history recorded. Gynecological HistoryNo gynecological history recorded. Obstetrics History GPAL:G 0 P 0 0 0 0 Past Encounters Encounter ID Performer Location Encounter Start Date Encounter Closed Date Diagnosis/Indication Diagnosis SNOMED-CT Code Diagnosis ICD10 Code Diagnosis Note [id number] Reed Carlos MD [facility] - [facility] [address] [place] [id number] 12/13/2021 20:36:20 12/20/2021 13:30:15 Cellulitis 204831099 L03.90 [id number] Yelena Landaverde MD [facility] [address] [place] [id number] 02/23/2023 20:14:26 02/23/2023 23:04:54 Community acquired pneumonia 639259260 J18.9 Acute exac erbation of chronic obstructive pulmonary disease 633878876 J44.1 [id number] Winsome Díaz MD [facility] - [facility] [address] [place] [id number] 10/24/2023 12:43:55 07/14/2024 20:07:33 Cat bite 859503986 W55.01XA [id number] Yelena Landaverde MD [facility] [address] [place] [id number] 01/30/2024 19:02:19 02/01/2024 00:29:21 Abdominal pain 29538376 R10.9 Suprapubic pain 57581593 6 R10.30 [id number] Rosario Maguire MD [facility] - [facility] [address] [place] [id number] 03/07/2024 15:08:39 03/08/2024 17:25:37 Peripheral edema 148849210 R60.9 No clinical evidence of CHFBoth legs more edematous than usual, right foot is more swollen than left/no history of trauma but no cords /Homans negative so DVT is unlikely. No warmth or erythema to suggest cellulitis . Primary care team: If patient continues to have pain/sts she will need imaging studies. Patient is quite anemic- her [facility] notes from 02/20 through 02/22/2024 [...] return to 2000 mg per 24 hours [id number] Dnei Santos MD [facility] [address] [place] [id number] 07/27/2024 12:53:57 07/27/2024 14:12:25 Pain in throat 365307274 J02.9 Health Concerns Section Related Observation LastModified by Organization Detai ls LastModified Time None Recorded Concern Status LastModified by Organization Details LastModified Time None Recorded Advance Directives Directive None Recorded Payers Encounter Date Sequence Insurance Name Policy Number Policy Sepulveda Covered Member ID Sepulveda Member ID Guarantor Name 02/23/2023 1 [facility] - DOS ON OR AFTER 2022 - DUAL ELIGIBLE - CORRECTION OPTIONS AND ONE CARE (MEDICARE REPLACEMENT/AD VANTAGE - HMO) Vikki Willis [id number] Vikki Willis 10/24/2023 1 [facility] - DOS ON OR AFTER 2022 - DUAL ELIGIBLE - CORRECTION OPTIONS AND ONE CARE (MEDICARE REPLACEMENT/AD VANTAGE - HMO) Vikki Willis [id number] Vikki Willis 01/30/2024 1 [facility] - DOS ON OR AFTER 2022 - DUAL ELIGIBLE - CORRECTION OPTIONS AND ONE CARE (MEDICARE REPLACEMENT/AD VANTAGE - HMO) Vikki Willis [id number] Vikki Willis 03/07/2024 1 [facility] - DOS ON OR AFTER 2022 - DUAL ELIGIBLE - CORRECTION OPTIONS AND ONE CARE (MEDICARE REPLACEMENT/AD VANTAGE - HMO) Vikki Willis [id number] Vikki Mazariegos Elenapatelandres 07/27/2024 1 [facility] - DOS ON OR AFTER 2022 - DUAL ELIGIBLE - CORRECTION OPTIONS AND ONE CARE (MEDICARE REPLACEMENT/AD VANTAGE - HMO) Vikki Zengandres [id number] Vikki Mazariegos Lazaro Notes Date Note Type Note Provider Name and Address Organization Details Recorded Time 02/23/2023 text/html HPI: HX: JANET, Seizure disorder. [...] CRC RN DID NOT NEED FURTHER INFO [facility] [place]PI: runny nose, clear mucous, x 1 mo. seen by PCP, given cough medicine with codeine. last appt w PCP was 1 wk ago. still having productive cough. started corcidin last week 5d ago. using combivent and flovent. no sore throat, and some chest congestion Yelena Landaverde MD [address] [facility],[address], [place], [address], [facility] [employer] 02/23/2023 20:29:29 10/24/2023 text/html CRC Nurse Triage Notes (Elizabeth Grijalva): Reason For Request: Patient was bit on the arm by her Kitten. Chief Complaints: Injury PMH: COPD/Asthma, Diabetes, Hypertension Allergies: Albuterol Other Allergies: Vicodin Comments: Emergency Telecommunications Dispatcher verified the member's name//address and phone number.Member [...] .................... .................... .................... .................... .................... .................... . Ecosystem Ecology Professor Note From Destini Castro: Pt with significant bite/scratch almendarez from kitten while both kittens in a fight. Kitten not yet fully vaccinated. A&ox3, vss, afebrile; one puncture site actively bleeding at present. [facility] consulted, pt agreeable to go to ER by POV to have wounds irrigated and evaluated for stitches. Hand and wrist wrapped with clean dry dressing. Red flags reviewed. Ecosystem Ecology Professor Allergies: Albuterol .................... .................... .................... .................... .................... .................... .................... . Disposition: Fulfilled Winsome Díaz MD [address] [facility],[address], [place], [address], [employer] 10/24/2023 13:07:25 01/30/2024 text/html CRC Nurse Triage Notes (Figueroa Sanders): Reason For Request: Pt reporting problem going number number 2 primarily but notes having problems going number 1 as well Chief Complaints: Abdominal pain PMH: COPD/Asthma, Hypertension, Anxiety Disorder, Chronic Kidney Disease, Depression, Epilepsy/Seizure Disorder, Diabetes Mellitus Type 2 Comments: Emergency Telecommunications Dispatcher verified the Pt.'s name//address and phone number. [...] scene and unable to make contacted - [place] [employer] contact and will be dispatching a unit [facility] HPI: pain w trying to urinate, like she has to push. some constipation. .................... .................... .................... .................... .................... .................... .................... . Ecosystem Ecology Professor Note From Bob Ac: Pt chief complaint today of lower abdominal pain most closely related to the Pubic/perineal area. Pt states that she has been having this problem for 4 days prior to [facility] visit. Pt states she has [...] Pt is CAOX4 with a GCS of [facility] Yelena Landaverde consultedPt expressed that it would be in her best interest to be seen at. [place] of higher ability for more testing that [facility] cannot provide. Pt is also educated on the possible negative effects that can occur from waiting up t and including possible . Pt decides to wait till tomorrow for further diagnostics and treatmentPt is educated on red flag S&S and informed to call emergency services if any present. .................... .................... .................... .................... .................... .................... .................... . [facility] Consulted: Yelena Landaverde .................... .................... .................... .................... .................... .................... .................... . Disposition: Fulfilled Yelena Landaverde MD [address] [facility],[address], [place], [address], [employer] 01/30/2024 19:47:48 03/07/2024 text/html HPI: Call returned [...] come into walk in center. Agrees to Staff Ranker for evaluation. Confirmed demographics and allergies. .................... .................... .................... .................... .................... .................... .................... . CRC Nurse Triage Notes (Treasure Childers): Chief Complaints: Swelling PMH: COPD/Asthma, Hypertension, Anxiety Disorder, Chronic Kidney Disease, Depression, Epilepsy/Seizure Disorder, Diabetes Mellitus Type 2, Asthma Comments: HPI reviewed Ecosystem Ecology Professor Organization Information [facility] Legal Name: [facility] Address: [address] [place] [address], [place] [address], N[employer] Supervisor: Douglas Bucio MD CLIA No.: [id number] Ecosystem Ecology Professor POC Test Results from James Greene [facility] (15:03:32) pH: 7.39 pH units pCO2: 32.2 mmHg pO2: 41.0 mmHg Na: 135 mmol/L K: 3.7 mmol/L iCa: 1.21 mmol/L Cl: 106 mmol/L TCO2: 19.2 mEq/L Hct: 28 % Hb: 9.5 g/dL Glu: 103 mg/dL Lac: 1.3 mmol/L Cr: 0.77 mg/dL BUN: 7 mg/dL A .................... .................... .................... .................... .................... .................... .................... . Ecosystem Ecology Professor Note From James Greene: This 63-year-old female [...] .................... .................... .................... .................... .................... .................... . [facility] Consulted: Rosario Maguire .................... .................... .................... .................... .................... .................... .................... . Disposition: Fulfilled SEGMD: Patient denies trauma/she denies history of gout. Although her right foot is more swollen than the left she reports her legs are much more edematous than baseline and they are painful. She was hospitalized at [facility] the week of 02/20 with a potassium of 2 diverticulitis and a UTI. Her hemoglobin was noted to go from 11 down to 8 during that visit with no history of GI bleeding. She also has a PMH including but not limited to: Asthma/COPD/HTN/CHF/ /CKD/DM 2/epilepsy/(iron deficiency anemia, hyponatremia and hypokalemia per PCP note 03/03/2024)./Anxiety and depression. Rosario Maguire MD [address] [facility],[address], [place], [address], [facility] [employer] 03/08/2024 00:13:48 07/27/2024 text/html HPI: Member took her morning meds, then c/o sore throat and mild congestion.Member unsure if it was one of the medications that irritated her throat or caused some difficulty swallowing. c/o mild cough and sore throat. Member is denying any other complaints.: note- info provided by Paula from [facility] .................... .................... .................... .................... .................... .................... .................... . CRC Nurse Triage Notes (Trudi Vernon): Reason For Request: Patient has a sore throat, and throat tightness Chief Complaints: Sore Throat, Cough PMH: COPD/Asthma, Hypertension, Anxiety Disorder, Chronic Kidney Disease, Depression, Epilepsy/Seizure Disorder, Diabetes Mellitus Type 2, Asthma PMH Reviewed at 07/27/2024:14 Allergies Reviewed at 07/27/2024:14 Comments: Member is not on any special diet or thickened liquids. Onset of symptoms is today. Member may be coming down with a cold per requester. Will process visit, info verified. 64 y.o female complains of Sore Throat, Cough I provided information on the mobile health provider response time and advised the patient and/or caregiver to monitor reported signs and symptoms. I discussed the warning signs of when to seek emergency care. Ecosystem Ecology Professor Organization Information for [employer] Legal Name: [employer]? Address: [address] [place] [address], [employer] Supervisor: Bran De La Rosa MD CLIA No.: [id number] Ecosystem Ecology Professor POC Test Results from [facility] Rapid COVID antigen (12:52:02) COVID: - Rapid influenza antigen (12:52:03) Flu: - Rapid strep test (12:52:27) Strep: - .................... .................... .................... .................... .................... .................... .................... . Ecosystem Ecology Professor Note From Kayleen Castellanos: Sent to a call for a pt complaining of a sore throat. SC8 arrives on scene, pt is alert and oriented, airway is patent. Pt complains of chronic runny nose with clear mucus, and chronic productive cough w/clear phlegm. Pt complains of sore throat after taking prescribed medications as normal. Pt denies feeling like a pill scratched her throat or is stuck. Pt denies gomez, dizziness, cp, sob, n/v/d, abd pain, fever, or loc. Pt has been able to eat, drink, and swallow without issue. Pt states throat pain is improving. BP:108/66, P:110 (pt states this is normal), RR:18, SpO2:98% RA, T:97.5; Head: throat: erythema noted; Lung sounds: clear bilaterally; Abdomen: soft, non-tender, no distention; Back: unremarkable; Extremities: unremarkable; Skin: pink, warm, dry; Rapid covid/flu test: neg; Rapid strep test: neg; [facility] consulted and pt is advised to monitor symptoms. Red flags discussed. Pt has no further questions. [facility] Lab Orders: rapid SARS CoV 2 Ag, QL IA, respiratory specimen: Performed rapid flu (A+B): Performed rapid strep group A, throat: Performed .................... .................... .................... .................... .................... .................... .................... . [facility] Consulted: Deni Santos .................... .................... .................... .................... .................... .................... .................... . Disposition: Fulfilled Deni Santos MD [address] [place] [address],[address], [place], [address], [facility] [employer] 07/27/2024 13:51:25 OBGyn Episode No OBEpisode recorded.
--- OUTSIDE RECORDS SUMMARY | 2024-08-02 17:06 | XMS_ITS | Clinical Summary ---
Author Organization [facility] Address [address] [place] [address] Phone Care Team Providers Care Converter Operator Name Role Phone April Dave NP Primary Care Provider [phone] Social History Tobacco Use Types Packs/Day Years Used Date Smoking Tobacco: Never Assessed Comments Unknown Sex and Gender Information Value Date Recorded Sex Assigned at Not on file Legal Sex Female 9:35 AM EST Gender Identity Not on file Sexual Orientation Not on file Plan of Treatment Upcoming Encounters Date Type Department Care Team ([facility] st Contact Info) Description 08/17/2024 1:30 PM EDT Consult Orthopedic Surgery - [place] [id number] [phone] Terell Nicholas DPM [address] [address] Health Maintenance Due Date Last Done Comments [...] to complete this topic Insurance [address] [place] [address] [employer] MEDICARE Member Subscriber Plan / Payer (Ef fective 2016-Present) Name:Vikki Willis Relation to Subscriber:Self Name:Vikki Willis Payer ID:[id number] Group ID:[id number] Type:Not on file Address: [place] [address] [address] [phone] Care Teams Converter Operator Relationship Specialty Start Date End Date April Dave NP [address] [place] [phone] PCP - General 01/05/24
--- OUTSIDE RECORDS SUMMARY | 2024-08-02 17:06 | XMS_ITS | Clinical Summary ---
Author Organization [facility] Address [address] [place] [address] [address] [place] [address] Phone Care Team Providers Care Insurance Claims Clerk Name Role Phone Inez Dewitt NP Primary Care Provider [phone] Allergies Active Allergy Reactions Criticality Noted Date [...] by mouth 2 Active UltiCare Mini Pen [place] 31G X 6 MM misc USE FOUR [...] Communication [facility] [address] [place] [phone] Alan Nash MD 05/10/2024 Refill [facility] [address] [place] [phone] Alan Nash MD from Last 3 Months Immunizations Immunization Administration Dates Next Due Hepatitis A 08/17/2017,04/11/2016 [...] Visit [facility] [address] [place] [address] Alan Nash MD [address] [facility] [address] [place] [address] Health Maintenance Due Date Last Done Comments [...] age to complete this topic Pneumococcal Vaccine: 50+ Years Completed 07/01/2023, 11/07/2014, 07/27/2014, Additional history exists Pneumococcal Vaccine: Peds (0 to 5 Years) and At-Risk Patients (6 to 49 Years) Discontinued 07/01/2023, 11/07/2014, 07/27/2014, Additional history [place] [address] ([id number]) [place]IV[place] [id number] [place] [address] ([id number]) [place]UDITH RIV[place] [id number] Care Teams Insurance Claims Clerk Relationship Specialty Start Date End Date Inez Dewitt NP [address] [place] [address] [facility] - General 04/09/20
[2024-08-02 17:38] LABS: MANUAL DIFF FLAG NO
[2024-08-02 17:49] LABS: Hematocrit 30.1 % (37.0-47.0); Hemoglobin 9.6 g/dl (12.0-16.0); Imm Gran Abs Auto 0.01 X10*3/uL (0.00-0.03); Imm Gran Pct Auto 0.2 % (0.0-0.4); Lymphocytes Absolute Auto 1.9 X10*3/uL (1.2-4.9); Lymphocytes Percent Auto 43.7 % (20-40); Mean Corpuscular HGB Conc 31.9 g/dl (31.0-35.0); Mean Corpuscular Hemoglobin 26.4 pg (27.0-33.0); Mean Corpuscular Volume 82.9 fL (80.0-98.0); Monocytes Absolute Auto 0.4 X10*3/uL (0.1-1.2); Monocytes Percent Auto 8.3 % (2-11); Neutrophils Percent Auto 47.8 % (45-73); Platelet Count 131 X10*3/uL (160-400); Red Blood Count 3.63 X10*6/uL (4.20-5.50); Red Cell Distribution Width 14.4 % (11.0-16.0); White Blood Count 4.2 X10*3/uL (4.8-10.8)
[2024-08-02 18:43] LABS: Folate 17.7 ng/mL (> or = 4.0); Vitamin B12 635 pg/mL (200-900)
[2024-08-02 18:59] LABS: Alanine Aminotransferase 18 U/L (0-31); Albumin Level 3.5 g/dL (3.5-5.0); Alkaline Phosphatase 95 U/L (39-117); Anion Gap 11 (12-20); Aspartate Amino Transferase 26 U/L (5-31); Bilirubin Direct 0.2 mg/dL (0.0-0.5); Bilirubin Total 0.4 mg/dL (0.0-1.0); Blood Urea Nitrogen 30 mg/dL (9-16); Calcium 9.4 mg/dL (8.4-10.2); Carbon Dioxide 21 mmol/L (22-29); Chloride 109 mmol/L (96-108); Estimated Glomerular Filt Rate 54; Glucose Random 75 mg/dL (60-115); Iron 53 mcg/dL (30-160); Magnesium 1.8 mg/dL (1.6-2.6); Percent Iron Saturation 26 % (15-50); Potassium 4.3 mmol/L (3.3-5.1); Sodium 137 mmol/L (135-145); Total Iron Binding Capacity 205 mcg/dL (228-428); Unsaturated Iron Binding 152 ug/dL
[2024-08-02 19:27] LABS: Ferritin 44 ng/mL (10-250); TSH reflex Free T4 < 0.01 uIU/mL (0.32-4.0)
[2024-08-02 21:15] LABS: Free T4 (Free Thyroxine) 1.89 ng/dL (0.71-1.85)
== END 2024-08-02 16:30 | disposition home or self-care (01) ==
LOC: HO.HHCL 16:29
PROVIDERS: Visit Provider Family Medicine
DX: R00.0 Tachycardia, unspecified (principal); D50.9 Iron deficiency anemia, unspecified
CPT/HCPCS: 36415; 80048; 80076; 82607; 82728; 82746; 83540; 83735; 84439; 84443; 85025

== ENCOUNTER → 2024-08-04 13:20 | Outpatient (BNVA) | payer OTHER, SELFPAY | PROVIDERS: PCP Nurse Practitioner Primary Care; Visit Provider Orthopaedic Surgery ==

== ENCOUNTER 2024-08-12 15:17 | Emergency (ER) | payer OTHER, SELFPAY ==
--- NOTE | ~2024-08-12 | XR_ITS ---
CLINICAL HISTORY: cough 2 view chest x-ray Comparison: CR/SR - XR CHEST 2V - 03/06/23 14:36 EST Findings: The lungs are clear. Heart size is normal. No acute fracture. IMPRESSION: 1. No acute findings. This document has been electronically signed by: Krista Mejia MD on 08/12/2024 16:57:33
[2024-08-12 15:25] VITALS: BP 90/40; PULSE 90; O2SAT 100
[2024-08-12 15:26] VITALS: BP 99/51; PULSE 98; RESP 18; TEMP 36.8; O2SAT 96; BMI 25.7
--- OUTSIDE RECORDS SUMMARY | 2024-08-12 15:52 | XMS_ITS | Clinical Summary ---
Author Organization 175 [facility] Address [address] [place] [address] Phone Care Team Providers Care Yard Caller Name Role Phone April Dave NP Primary Care Provider [phone] Social History Tobacco Use Types Packs/Day Years Used Date Smoking Tobacco: Never Assessed Comments Unknown Sex and Gender Information Value Date Recorded Sex Assigned at Not on file Legal Sex Female 9:35 AM EST Gender Identity Not on file Sexual Orientation Not on file Plan of Treatment Upcoming Encounters Date Type Department Care Team ([facility] st Contact Info) Description 08/17/2024 1:30 PM EDT Consult Orthopedic Surgery - [place] [address] [phone] Terell Nicholas DPM [address] [address] Health Maintenance Due Date Last Done Comments [...] to complete this topic Insurance [address] [place] [address] [employer] MEDICARE Member Subscriber Plan / Payer (Ef fective 2016-Present) Name:JOSE WILLIS Relation to Subscriber:Self Name:Jose Willis Payer ID:[id number] Group ID:[id number] Type:Not on file Address: [place] [address] [place]UD[place]IV[place] [id number] Care Teams Yard Caller Relationship Specialty Start Date End Date April Dave NP [address] [place] [phone] PCP - General 01/05/24
--- OUTSIDE RECORDS SUMMARY | 2024-08-12 15:52 | XMS_ITS | Clinical Summary ---
Author Organization [facility] Address [address] [place] [address] [address] [place] [address] Phone Care Team Providers Care Vulcanizer Operator Name Role Phone Inez Dewitt NP Primary Care Provider [phone] Allergies Active Allergy Reactions Criticality Noted Date [...] by mouth 2 Active UltiCare Mini Pen [place] 31G X 6 MM misc USE FOUR [...] Obese 02/23/2012 Obstructive sleep apnea syndrome 02/23/2012 Immunizations Immunization Administration Dates Next Due Hepatitis [...] Visit [facility] [address] [place] [address] Alan Nash MD [address] [facility] [address] [place] [phone] Health Maintenance Due Date Last Done Comments [...] 11/07/2014, 07/27/2014, Additional history exists Insurance ([id number]) [facility] ([id number]) Care Teams Vulcanizer Operator Relationship Specialty Start Date End Date Inez Dewitt NP [address] [place] [address] PCP - General 04/09/20
--- OUTSIDE RECORDS SUMMARY | 2024-08-12 15:53 | XMS_ITS | Data Portability ---
Author Organization [facility], Id in - [employer] Address [address] [place] [address] Care Team Providers Care Beater Engineer Name Role Phone [facility] Referring Provider HIM CCA OTHER Assessment Encounter Date Assessment Date Assessment LastModified by Organization Details LastModified Time 02/23/2023 02/23/2023 As noted, we were called to see this patient regarding concerns of Evaluation in the field was performed by my carpet inspector finished colleague, as noted above, I provided real-time [...] assessment and plan as documented by the carpet inspector finished. I provided real-time medical direction for this [...] in the field was performed by my carpet inspector finished colleague, as noted above, I provided real-time [...] and Plan as documented by the Supervisor [employer]crete Stone Finishing. We discussed the diagnostic uncertainty of home [...] to call 911- verbalized understanding of instruction [email or web address] Not available 03/08/2024 00:03:32 07/27/2024 07/27/2024 Impression: [...] pill or obstructions, low suspicion for perforation, PERSONAL CARE WORKER, RPA, abscess, meningitis. Unclear if this is [...] of any new or worsening serious symptoms [email or web address] Not available 07/27/2024 13:02:59 Plan of Treatment Reminders Order Date Submit Date Provider Last Modified By Organization Details Last Modified Time Details Appointments None recorded. Lab rapid SARS CoV 2 Ag, QL [place], respiratory specimen [address], [phone] 5 14:30:50 rapid flu (A+B) [address], [phone] 5 14:28:58 rapid strep group A, throat [address], [phone] 5 14:32:11 BMP, serum or plasma 2023 024 [email or web address] 0 [facility], [address] [place] [address], [id number] 4 15:47:26 Referral None recorded. Procedures None recorded. Surgeries None recorded. Imaging None recorded. Medication Orders furosemide 10 mg/mL injection solution 2023 024 [email or web address] 0 [facility], [address] [place] [address], [id number], 4 15:47:26 potassium chloride ER 20 mEq tablet,exte nded release 2023 024 [email or web address] 0 [facility], [address] [place] [address], [id number], 4 15:47:26 azithromyci n 250 mg tablet 2022 023 [facility], [address] [place] [address], [id number], 3 12:11:17 Patient TargetsNo targets recorded. Patient [...] Name and Address Organization Details Recorded Time 89222 acetamino phen / hydrocodo ne medicatio n Not available Not available Not available 01/30/2024 18513 2 [facility] 4 17:29:12 62259 hydrocodo ne Not available Not available Not available Not available 03/07/2024 5489 RxNorm Not Available [facility] 4 12:41:10 97104 tramadol medicatio n Not available Not available Not available 03/07/2024 42099 RxNorm Not Available [facility] 4 12:41:10 92506 lisinopri l medicatio n Not available Not available Not available 03/07/2024 95816 RxNorm Not Available [facility] 4 12:41:10 7573 albuterol medicatio n Not available Not available Not available 01/26/2024 435 RxNorm Not Available [facility] 4 03:38:23 Medications Name Sig Start Date Stop Date Status Note LastModified by Organization Details LastModified Time medbox status USE DIRECTED active Not Available Not Available No t Available pulse oximet airial rx9235 USE TWICE DAILY DIRECTED active Not Available [...] Available Not Available No t Available FreeStyle Jackson Lite kit USE DIRECTED active Not Available [...] Address Organization Details Last Updated DateTime 3 88751.5 36 g 18 /min 98 /min 97 [...] /min 123 mm[Hg] 98 mm[Hg] Not Available [facility] 4 12:44:04 Date Recorded Respiratory rate Heart rate Body height Oxygen saturation Oxygen saturation in Arterial blood by Pulse oximetry Body weight Body temperature Systolic blood pressure Diastolic blood pressure Provider Name and Address Organization Details Last Updated DateTime 4 20 /min 97 /min 147.32 cm 99 % 99 % 79335.6 96 g 98.1 [degF] 116 mm[Hg] 77 mm[Hg] Not Available [employer] - 4 19:02:23 Date Recorded Heart rate Body temperature Oxygen saturation Oxygen saturation in Arterial blood by Pulse oximetry Respiratory rate Systolic blood pressure Diastolic blood pressure Provider Name and Address Organization Details Last Updated DateTime 4 96 /min 96.9 [degF] 98 % 98 % 18 /min 151 mm[Hg] 86 mm[Hg] Not Available [facility] 4 15:08:50 Date Recorded Body height Body mass index (BMI) Body weight Provider Name and Address Organization Details Last Updated DateTime 03/07/2024 147.32 cm 26.8 kg/m2 39357.82 g Rosario Maguire MD [address] [place] [address],[address] [facility], [place], [place], [address] [place] [address] - [employer] 03/07/2024 15:26:21 Date Recorded Body temperature Body height Body weight Oxygen saturation Oxygen saturation in Arterial blood by Pulse oximetry Respiratory rate Heart rate Systolic blood pressure Diastolic blood pressure Provider Name and Address Organization Details Last Updated DateTime 5 97.5 [degF] 144.78 cm 89131.6 72 g 98 % 98 % 18 /min 110 /min 108 mm[Hg] 66 mm[Hg] Not Available [facility] 5 12:53:59 Social History None recorded. Functional [...] 4031 Reed Carlos MD Main - [facility] [address] [place] [phone] 12/13/2021 20:36:20 12/20/2021 13:30:15 Cellulitis 248846821 L03.90 55269 Yelena Landaverde MD Main - [facility] [address] [place] [phone] 02/23/2023 20:14:26 02/23/2023 23:04:54 Community acquired pneumonia 451574606 J18.9 Acute exac erbation of chronic obstructive pulmonary disease 148889658 J44.1 89416 Winsome Díaz MD Main - [facility] [address] [place] [phone] 10/24/2023 12:43:55 07/14/2024 20:07:33 Cat bite 073367014 W55.01XA 36081 Yelena Landaverde MD Main - [facility] [address] [place] [phone] 01/30/2024 19:02:19 02/01/2024 00:29:21 Abdominal pain 68294150 R10.9 Suprapubic pain 77346108 6 R10.30 22432 Rosario Maguire MD Main - [facility] [address] [place] [phone] 03/07/2024 15:08:39 03/08/2024 17:25:37 Peripheral edema 479184622 R60.9 No clinical evidence of CHFBoth legs more edematous than usual, right foot is more swollen than left/no history of trauma but no cords /Homans negative so DVT is unlikely. No warmth or erythema to suggest cellulitis . Primary care team: If patient continues to have pain/sts she will need imaging studies. Patient is quite anemic- her [facility] notes from 02/20 through 02/22/2024 state [...] return to 2000 mg per 24 hours 22414 Deni Santos MD Main - [facility] [address] [place] [phone] 07/27/2024 12:53:57 07/27/2024 14:12:25 Pain in throat 323811553 J02.9 Health Concerns Section Related Observation LastModified by Organization Detai ls LastModified Time None Recorded Concern Status LastModified by Organization Details LastModified Time None Recorded Advance Directives Directive None Recorded Payers Insurance Date Sequence Insurance Name Policy Number Policy Sepulveda Covered Member ID Sepulveda Member ID Guarantor Name 02/18/2024 1 [facility] - DOS PRIOR TO 2022 - DUAL ELIGIBLE (MEDICARE REPLACEMENT/AD VANTAGE - HMO) Vikki Willis [id number] Vikki Willis 07/27/2024 1 [facility] - DOS ON OR AFTER 2022 - DUAL ELIGIBLE - [facility] OPTIONS AND ONE CARE (MEDICARE REPLACEMENT/AD VANTAGE - HMO) Vikki Willis [id number] Vikki Willis Notes Date Note Type Note [...] CRC RN DID NOT NEED FURTHER INFO [facility] HPI: runny nose, clear mucous, x 1 mo. seen by PCP, given cough medicine with codeine. last appt w PCP was 1 wk ago. still having productive cough. started corcidin last week 5d ago. using combivent and flovent. no sore throat, and some chest congestion Yelena Landaverde MD [address] [place] [address],[address], [place], [phone], [facility] 02/23/2023 20:29:29 10/24/2023 text/html CRC Nurse Triage Notes (Elizabeth Grijalva): Reason For Request: Patient was bit on the arm by her Kitten. Chief Complaints: Injury PMH: COPD/Asthma, Diabetes, Hypertension Allergies: Albuterol Other Allergies: Vicodin Comments: Supervisor [employer]crete [employer] Fin[employer] verified the member's name//address and phone number.Member [...] .................... .................... .................... .................... .................... . Supervisor Concrete Stone Finishing Note From Destini Castro: Pt with significant bite/scratch almendarez from kitten while both kittens in a fight. Kitten not yet fully vaccinated. A&ox3, vss, afebrile; one puncture site actively bleeding at present. C consulted, pt agreeable to go to ER by POV to have wounds irrigated and evaluated for stitches. Hand and wrist wrapped with clean dry dressing. Red flags reviewed. Supervisor Concrete Stone Finishing Allergies: Albuterol .................... .................... .................... .................... .................... .................... .................... . Disposition: Chitra Díaz MD [address] [place] [address],[address], [place], [phone], [facility] 10/24/2023 13:07:25 01/30/2024 text/html CRC Nurse Triage Notes (Figueroa Sanders): Reason For Request: Pt reporting problem going number number 2 primarily but notes having problems going number 1 as well Chief Complaints: Abdominal pain PMH: COPD/Asthma, Hypertension, Anxiety Disorder, Chronic Kidney Disease, Depression, Epilepsy/Seizure Disorder, Diabetes Mellitus Type 2 Comments: Supervisor Concrete Stone Finishing verified the Pt.'s name//address and phone number. [...] scene and unable to make contacted - [place] [employer] contact and will be dispatching a unit [facility] HPI: pain w trying to urinate, like she has to push. some constipation. .................... .................... .................... .................... .................... .................... .................... . Supervisor Concrete Stone Finishing Note From Bob Ac: Pt chief complaint today of lower abdominal pain most closely related to the Pubic/perineal area. Pt states that she has been having this problem for 4 days prior to [facility] visit. Pt states she has been [...] Pt is CAOX4 with a GCS of 15VMC Yelena Landaverde consultedPt expressed that it would be in her best interest to be seen at. Center of higher ability for more testing that [facility] cannot provide. Pt is also educated on the possible negative effects that can occur from waiting up t and including possible . Pt decides to wait till tomorrow for further diagnostics and treatmentPt is educated on red flag S&S and informed to call emergency services if any present. .................... .................... .................... .................... .................... .................... .................... . [facility] Consulted: Yelena Landaverde .................... .................... .................... .................... .................... .................... .................... . Disposition: Fulfilled Yelena Landaverde MD [address] [place] [address],[address], [place], [phone], [facility] 01/30/2024 19:47:48 03/07/2024 text/html HPI: Call returned [...] come into walk in center. Agrees to [facility] for evaluation. Confirmed demographics and allergies. .................... .................... .................... .................... .................... .................... .................... . CRC Nurse Triage Notes (Treasure Childers): Chief Complaints: Swelling PMH: COPD/Asthma, Hypertension, Anxiety Disorder, Chronic Kidney Disease, Depression, Epilepsy/Seizure Disorder, Diabetes Mellitus Type 2, Asthma Comments: [facility] reviewed Supervisor Concrete [employer] Finishing Organization [facility] Name: [facility] Address: [address] [place] [address], Grey Roll Man: Douglas Bucio MD CLIA No.: [id number] Supervisor Concrete Stone Finishing POC Test Results from James Greene [facility] (15:03:32) pH: 7.39 pH units pCO2: 32.2 mmHg pO2: 41.0 mmHg Na: 135 mmol/L K: 3.7 mmol/L iCa: 1.21 mmol/L Cl: 106 mmol/L TCO2: 19.2 mEq/L Hct: 28 % Hb: 9.5 g/dL Glu: 103 mg/dL Lac: 1.3 mmol/L Cr: 0.77 mg/dL BUN: 7 mg/dL A .................... .................... .................... .................... .................... .................... .................... . Supervisor [employer]crete [employer] Finishing Note From James Greene: This 63-year-old female [...] .................... .................... .................... .................... .................... .................... . [facility] Consulted: Rosario Maguire .................... .................... .................... .................... .................... .................... .................... . Disposition: Fulfilled SEGMD: Patient denies trauma/she denies history of gout. Although her right foot is more swollen than the left she reports her legs are much more edematous than baseline and they are painful. She was hospitalized at [facility] the week of 02/20 with a potassium of 2 diverticulitis and a UTI. Her hemoglobin was noted to go from 11 down to 8 during that visit with no history of GI bleeding. She also has a PMH including but not limited to: Asthma/COPD/HTN/CHF/ /CKD/DM 2/epilepsy/(iron deficiency anemia, hyponatremia and hypokalemia per PCP note 03/03/2024)./Anxiety and depression. Rosario Maguire MD [address] [place] [address],[address], [place], [phone], [facility] 03/08/2024 00:13:48 07/27/2024 text/html HPI: Member took her morning meds, then c/o sore throat and mild congestion.Member unsure if it was one of the medications that irritated her throat or caused some difficulty swallowing. c/o mild cough and sore throat. Member is denying any other complaints.: note- info provided by Paula from [facility] .................... .................... .................... .................... .................... .................... .................... . CRC Nurse Triage Notes (Trudi Vernon): Reason For Request: Patient has a sore throat, and throat tightness Chief Complaints: Sore Throat, Cough PMH: COPD/Asthma, Hypertension, Anxiety Disorder, Chronic Kidney Disease, Depression, Epilepsy/Seizure Disorder, Diabetes Mellitus Type 2, Asthma PMH Reviewed at 07/27/2024 Allergies Reviewed at 07/27/2024:14 Comments: Member is [...] signs of when to seek emergency care. Supervisor Concrete Stone Finishing Organization Information for [facility] [employer] Legal Name: [employer]? Address: [address] [place] [address], Grey Roll Man: Bran De La Rosa MD [place] No.: [id number] Supervisor Concrete [employer] Finishing POC Test Results from Kayleen Castellanos Rapid COVID antigen (12:52:02) COVID: - Rapid influenza antigen (12:52:03) Flu: - Rapid strep test (12:52:27) Strep: - .................... .................... .................... .................... .................... .................... .................... . Supervisor Concrete Stone Finishing Note From Kayleen Castellanos: Sent to a [...] covid/flu test: neg; Rapid strep test: neg; [facility] consulted and pt is advised to monitor symptoms. Red flags discussed. Pt has no further questions. [facility] Lab Orders: rapid SARS CoV 2 Ag, QL IA, respiratory specimen: Performed rapid flu (A+B): Performed rapid strep group A, throat: Performed .................... .................... .................... .................... .................... .................... .................... . [facility] Consulted: Deni Santos .................... .................... .................... .................... .................... .................... .................... . Disposition: Fulfilled Deni Santos MD [address] [place] [address],[address], [place], [phone], TRESSA LAU 07/27/2024 13:51:25 OBGyn Episode No OBEpisode recorded.
--- NOTE | 2024-08-12 16:11 | ED_ITS ---
HPI - General Adult General Chief complaint: Seizure Stated complaint: seizure earlier today Time Seen by Provider: 08/12/24 15:43 Source: patient Mode of arrival: ambulatory Limitations: no limitations History of Present Illness HPI narrative: This is a 64-year-old woman with a past medical history of insulin-dependent diabetes mellitus, hypertension, CHF, GERD, CKD, mood disorder, asthma, seizure disorder who presents for evaluation of seizure. She states having 2 petit mal seizures in the last day. She states one episodes yesterday and one episode today. She states she feels both her hands shaking and that her speech changes during this episodes. She states that she currently takes Topiramate for her seizures and has been taking all of her medications as prescribed. She states no associated loss of consciousness and recalls the events clearly. She states no associated tongue biting or urinary incontinence. She states she was previously on another seizure medicine, but states it was causing her to blackout so this was stopped years ago. She states no recent fever. She states chronic dry cough. She states no dyspnea or chest pain. She states no trauma or falls. She states no LOC. She states no GI or symptoms. She states no headache. Related Data Home Medications ?Medication ?Instructions ?Recorded ?Confirmed atorvastatin 40 mg tablet 1 tab PO BEDTIME 01/12/20 02/21/24 calcium 600 mg (as 1 tab PO BID 01/12/20 02/21/24 carbonate)-vitamin D3 10 mcg (400 unit) tablet cetirizine 10 mg tablet 1 tab PO QAM 01/12/20 02/21/24 oxcarbazepine 150 mg tablet 1 tab PO BID 01/12/20 02/21/24 sertraline 50 mg tablet 50 mg PO DAILY 08/20/20 02/21/24 albuterol sulfate 90 mcg/actuation 2 puff PO QID PRN Wheezing 02/18/21 02/21/24 aerosol inhaler topiramate 100 mg tablet 100 mg PO BID 09/19/21 02/21/24 folic acid 1 mg tablet 1 mg PO DAILY 12/05/23 02/21/24 acetaminophen 500 mg tablet 1,000 mg PO Q6H PRN painpain 02/21/24 02/21/24 fluticasone propionate 110 2 puff inhalation BID PRN 02/21/24 02/21/24 mcg/actuation HFA aerosol inhaler Shortness Of Breath Or Wheezing fluticasone propionate 50 2 spray intranasal DAILY 02/21/24 02/21/24 mcg/actuation nasal spray,suspension omeprazole 20 mg capsule,delayed 20 mg PO DAILY@0630 02/21/24 02/21/24 release ropinirole 1 mg tablet 1 mg PO BID PRN restless leg 02/21/24 02/21/24 syndrome Previous Rx's ?Medication ?Instructions ?Recorded imipramine HCl 25 mg tablet 50 mg (2 x 25 mg) PO BEDTIME #60 01/15/24 tabs cefuroxime axetil 500 mg tablet 500 mg PO BID #10 tabs 02/22/24 metronidazole 500 mg tablet 500 mg PO BID #10 tabs 02/22/24 vancomycin 125 mg capsule 125 mg PO Q6H #40 caps 02/22/24 Allergies Allergy/AdvReac Type Severity Reaction Status Date / Time hydrocodone [From Vicodin] Allergy Mild ITCHING Verified 08/12/24 15:32 SHANAE Inhibitors Allergy Unknown UNKNOWN Verified 08/12/24 15:32 [SHANAE INHIBITORS] ENVIROMENTAL Allergy Mild HAYFEVER Uncoded 08/12/24 15:32 lysol wipes Allergy Mild Hives Uncoded 08/12/24 15:32 avacado Allergy Unknown NEPHROPATHY Uncoded 08/12/24 15:32 Review of Systems 2 Review of Systems: ROS as per HPI [facility] Past Medical History Medical History Seizures Syncope History of TIA (transient ischemic attack) CHF (congestive heart failure) Essential hypertension Hyperlipidemia Type 2 diabetes mellitus with chronic kidney disease Chronic kidney disease, stage 3 Anemia COPD (chronic obstructive pulmonary disease) Asthma JANET (obstructive sleep apnea) Nicotine dependence, cigarettes, uncomplicated Restless leg syndrome Obesity Tubular adenoma of colon IBS (irritable bowel syndrome) Constipation Primary osteoarthritis of right knee Osteoarthritis Right knee pain History of migraine Surgical History History of appendectomy History of cholecystectomy History of esophagogastroduodenoscopy (EGD) History of colonoscopy History of total left knee replacement (TKR) History of arthroscopy of left knee History of arthroscopy of right knee History of elbow surgery History of surgery on wrist History of carpal tunnel release of both wrists History of lumpectomy of right breast Family History Family History Father Hx of gout Diabetes Mother Diabetes Daughter Pre-diabetes Brother Cancer Social History Social History Household Members: None Housing: Apartment Do you presently have visiting nurse or other home services: Yes Alcohol intake: never Patient Tobacco Use Status: Current everyday Tobacco user Tobacco use type: Cigarette Cigarette Packs Per Day: 1 Cigarettes Per Day: 20.0 Years Smoked: onset 16yo, 3ppd x 47yrs, now 2ppd, >100pyh e-Cigarette/Vaping Use: Never Used Second Hand Smoke Exposure: No Advance Directives: Yes Advance Directives on File: Yes Advance Directives Date on File: 02/18/21 service: No Current occupational status: disabled Current occupation: left hand dominant Physical Exam ED Vital Signs: Vital Signs - 24 hr 08/12/24 15:26 08/12/24 17:09 Temperature 98.2 F Pulse Rate 98 94 Respiratory Rate 18 18 Blood Pressure 99/51 L Pulse Oximetry 96 Oxygen Delivery Method Room Air BMI result Body Mass Index 25.7 Gen: NAD, AOx3 HEENT: NCAT, EOMI, normal conjunctiva, no lingual laceration CV: RRR Pulm: CTAB, no increased work of breathing, no wheezes or rales, coarse breath sounds GI: Soft, NTND, no rebound, guarding or rigidity MSK: Moving all extremities spontaneously Neuro: CN 2-12 grossly intact, no sensory deficits, GCS 15 Medications Administered Discontinued Medications Generic Name Dose Route Start Last Admin Trade Name Freq PRN Reason Stop Dose Admin Albuterol Sulfate 2.5 mg/ 0 mg 08/12/24 16:24 08/12/24 17:06 Albuterol/Ipratropium 3 ml INHALE 08/12/24 16:25 1 dose ONCE ONE Administration Sodium Chloride 500 mls @ 500 mls/hr 08/12/24 16:30 08/12/24 18:03 Ns IV 08/12/24 17:29 500 mls/hr .Q1H INDU Administration Medical Decision Making Medical Decision Making MDM Narrative: Differential diagnosis includes, but is not limited to seizure, electrolyte derangement, viral URI. Patient is afebrile and hemodynamically stable on room air. Exam is benign and reassuring. I reviewed the patient's labs, chest x-ray and viral panel as below. Topiramate pending at time of discharge. On re-examination, patient is well-appearing and in no acute distress. There is no indication for further emergent evaluation in this otherwise well-appearing patient as above. ?Patient is provided written and verbal instructions, educational materials, recommendations for outpatient follow-up, strict return precautions, neurology referral and teach back is performed. ?Patient states understanding and agreement with plan of care. ?Patient is discharged home in stable and improved condition. Admission/Observation Consideration of admission/observation: Escalation of care including admission/observation considered Lab Data MDM Lab Attestation statement: I reviewed the patient's lab results. Labs demonstrates stable chronic anemia with hemoglobin 9.6 (previous 9.6), stable chronic thrombocytopenia with platelet count 144 (previous 131), no clinically significant electrolyte derangement, no acute kidney injury, negative viral panel 08/12/24 17:15 08/12/24 17:15 Labs: Lab Results 08/12/24 Range/Units 17:15 WBC 5.8 (4.8-10.8) X10*3/uL RBC 3.57 L (4.20-5.50) X10*6/uL Hgb 9.6 L (12.0-16.0) g/dl Hct 30.4 L (37.0-47.0) % MCV 85.2 (80.0-98.0) fL MCH 26.9 L (27.0-33.0) pg MCHC 31.6 (31.0-35.0) g/dl RDW 15.4 (11.0-16.0) % Plt Count 144 L (160-400) X10*3/uL MPV 9.7 (9.4-12.3) fL Immature Gran % (Auto) 0.2 (0.0-0.4) % Neut % (Auto) 39.2 L (45-73) % Lymph % (Auto) 53.8 H (20-40) % [place] % (Auto) 6.6 (2-11) % Eos % (Auto) 0.0 (0-4) % Baso % (Auto) 0.2 (0-2) % Lymph # (Auto) 3.1 (1.2-4.9) X10*3/uL [place] # (Auto) 0.4 (0.1-1.2) X10*3/uL Eos # (Auto) 0.0 (0.0-0.4) X10*3/uL Baso # (Auto) 0.0 (0.0-0.2) X10*3/uL Abs Immat Gran (auto) 0.01 (0.00-0.03) X10*3/uL Absolute Neuts (auto) 2.3 (2.0-8.3) x10*3/uL Absolute Nucleated RBC 0.000 (0.0-0.012) X10*3/uL Nucleated RBC % (auto) 0.0 (0.0-0.2) /100WBC Sodium 140 (135-145) mmol/L Potassium 4.0 (3.3-5.1) mmol/L Chloride 112 H (96-108) mmol/L Carbon Dioxide 19 L (22-29) mmol/L Anion Gap 13 (12-20) BUN 33 H (9-16) mg/dL Creatinine 0.87 (0.5-1.4) mg/dL Estim Creat Clear Calc 46.1 Estimated GFR > 60 Random Glucose 81 (60-115) mg/dL Calcium 9.3 (8.4-10.2) mg/dL Influenza Type A (PCR) NEGATIVE (Negative) Influenza Type B (PCR) NEGATIVE (Negative) RSV RNA Qual (PCR) NEGATIVE (Negative) SARS-CoV-2 RNA (RT-PCR) NEGATIVE (Negative) Independent Interpretation I performed an independent interpretation of an: Plain X-Ray Interpretation: Chest x-ray shows no pleural effusion, focal consolidation or pneumothorax Radiology Impression Discussion of test interpretation with radiology: I have reviewed the radiologist's reading. Radiologist Impression: IMPRESSION: 1. No acute findings. This document has been electronically signed by: Krista Mejia MD on 08/12/2024 16:57:33 Dictated By: Krista Mejia MD Signed By: <Electronically signed by Krista Mejia MD in OV> 08/12/24 3305 Discharge Plan Discharge Clinical Impression: Seizure Patient Disposition: Home, Self-Care Instructions: Recurrent Seizures in Adults (ED) Additional Instructions: You were evaluated in the emergency room for seizure. Your vitals signs were reassuring and you did not have a fever. Your tested negative for COVID-19, Influenza and RSV. Your chest x-ray was normal and showed no pneumonia. Your blood work was reassuring. Please follow up with your primary care doctor in 1 week. You are given a referral to follow up with Neurology. Please follow up in 1-2 weeks. Return to the emergency room with any new concerns or symptoms. Prescriptions: No Action imipramine HCl 25 mg tablet 50 mg PO BEDTIME Qty: 60 6RF oxcarbazepine 150 mg tablet 1 tab PO BID calcium carbonate-vitamin D3 600 mg(1,500mg) -400 unit tablet 1 tab PO BID atorvastatin 40 mg tablet 1 tab PO BEDTIME cetirizine 10 mg tablet 1 tab PO QAM albuterol sulfate 90 mcg/actuation HFA aerosol inhaler 2 puff PO QID PRN (Reason: Wheezing) folic acid 1 mg tablet 1 mg PO DAILY ropinirole 1 mg tablet 1 mg PO BID PRN (Reason: restless leg syndrome) acetaminophen 500 mg tablet 1,000 mg PO Q6H PRN (Reason: painpain) fluticasone propionate 50 mcg/actuation spray,suspension 2 spray intranasal DAILY omeprazole 20 mg capsule,delayed release(DR/EC) 20 mg PO DAILY@0630 fluticasone propionate 110 mcg/actuation HFA aerosol inhaler 2 puff inhalation BID PRN (Reason: Shortness Of Breath Or Wheezing) vancomycin 125 mg Capsule 125 mg PO Q6H Qty: 40 0RF cefuroxime axetil 500 mg tablet 500 mg PO BID Qty: 10 0RF metronidazole 500 mg tablet 500 mg PO BID Qty: 10 0RF sertraline 50 mg tablet 50 mg PO DAILY topiramate 100 mg tablet 100 mg PO BID Referrals: [facility] [Provider Group] Print Language: Lao
[2024-08-12] MEDS: Albuterol Sulfate 2.5 MG, Albuterol/Iprat 2.5/0.5MG 3 ML 3 ML INHALE (17:06)
[2024-08-12 17:09] VITALS: PULSE 94; RESP 18; O2SAT 97
[2024-08-12 17:20] LABS: MANUAL DIFF FLAG NO
[2024-08-12 17:23] LABS: Basophils Percent Auto 0.2 % (0-2); Hematocrit 30.4 % (37.0-47.0); Hemoglobin 9.6 g/dl (12.0-16.0); Imm Gran Abs Auto 0.01 X10*3/uL (0.00-0.03); Imm Gran Pct Auto 0.2 % (0.0-0.4); Lymphocytes Absolute Auto 3.1 X10*3/uL (1.2-4.9); Lymphocytes Percent Auto 53.8 % (20-40); Mean Corpuscular HGB Conc 31.6 g/dl (31.0-35.0); Mean Corpuscular Hemoglobin 26.9 pg (27.0-33.0); Mean Corpuscular Volume 85.2 fL (80.0-98.0); Mean Platelet Volume 9.7 fL (9.4-12.3); Monocytes Absolute Auto 0.4 X10*3/uL (0.1-1.2); Monocytes Percent Auto 6.6 % (2-11); Neutrophils Absolute Auto 2.3 x10*3/uL (2.0-8.3); Neutrophils Percent Auto 39.2 % (45-73); Platelet Count 144 X10*3/uL (160-400); Red Blood Count 3.57 X10*6/uL (4.20-5.50); Red Cell Distribution Width 15.4 % (11.0-16.0); White Blood Count 5.8 X10*3/uL (4.8-10.8)
[2024-08-12 17:33] LABS: Anion Gap 13 (12-20); Blood Urea Nitrogen 33 mg/dL (9-16); Calcium 9.3 mg/dL (8.4-10.2); Carbon Dioxide 19 mmol/L (22-29); Chloride 112 mmol/L (96-108); Creatinine Clr Calc Pharmacy 46.1; Estimated Glomerular Filt Rate > 60; Glucose Random 81 mg/dL (60-115); Sodium 140 mmol/L (135-145)
[2024-08-12 17:57] LABS: Influenza A PCR NEGATIVE (Negative); Influenza B PCR NEGATIVE (Negative); Resp Syncy Virus RNA Qual PCR NEGATIVE (Negative); SARS COV2 PCR INHOUSE NEGATIVE (Negative)
[2024-08-12] MEDS: 0.9 % Sodium Chloride 500 ML IV (18:03)
[2024-08-12 18:45] VITALS: BP 113/70; PULSE 94; RESP 18; TEMP 36.7; O2SAT 96
[2024-08-17 05:28] LABS: Topiramate 7.3 mcg/mL (see note)
== END 2024-08-12 18:45 | disposition home or self-care (01) ==
PROVIDERS: Emergency Provider Emergency Medicine; PCP Nurse Practitioner Primary Care
DX: R56.9 Unspecified convulsions (principal); R05.9 Cough, unspecified; E11.9 Type 2 diabetes mellitus without complications; R11.0 Nausea; Z79.4 Long term (current) use of insulin; Z79.899 Other long term (current) drug therapy; Z03.818 Encounter for observation for suspected exposure to other biological agents ruled out
CPT/HCPCS: 0241U; 36415; 71046; 80048; 80201; 85025; 94640; 96360; 99284

== ENCOUNTER → 2024-08-12 16:24 | Outpatient (BNV) | payer OTHER, SELFPAY | PROVIDERS: Emergency Provider Emergency Medicine; PCP Nurse Practitioner Primary Care; Visit Provider Radiology Diagnostic Radiology | DX: R05.9 Cough, unspecified (principal) | CPT/HCPCS: 71046 ==

== ENCOUNTER 2024-08-24 14:43 | Outpatient (AMB) | payer OTHER, SELFPAY ==
--- NOTE | 2024-08-24 14:48 | MHC.OFFVIS ---
Vital Signs 08/24/24 14:49 Height 4 ft 9 in Weight 119 lb BMI 25.7 BP 98/52 L Blood Pressure Location Lt brachial Position Sitting Pulse 93 Pulse Oximetry (%) 98 Oxygen Delivery Method Room Air Intake Visit Reasons: Follow up, irritation tissue in rectum Intake Note: Patient follow up for irritation tissues on rectum. Patient cc: yesterday with diarrhea . Denies any other GI issues. 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: No Accompanied by: Self / Same As Patient Allergies hydrocodone [From Vicodin] Allergy (Mild, Verified 08/24/24 14:48) ITCHING SHANAE Inhibitors [SHANAE INHIBITORS] Allergy (Unknown, Verified 08/24/24 14:48) UNKNOWN ENVIROMENTAL Allergy (Mild, Uncoded 08/12/24 15:32) HAYFEVER lysol wipes Allergy (Mild, Uncoded 08/12/24 15:32) Hives avacado Allergy (Unknown, Uncoded 08/12/24 15:32) NEPHROPATHY HPI HPI Follow up, irritation tissue in rectum: Details: Assessment & Plan (1) GERD (gastroesophageal reflux disease): Code(s): K21.9 - Gastro-esophageal reflux disease without esophagitis (2) IBS (irritable bowel syndrome): Code(s): K58.9 - Irritable bowel syndrome without diarrhea (3) Tubular adenoma of colon: Comment: 2021=TA repeat 5 years Code(s): D12.6 - Benign neoplasm of colon, unspecified (4) Hemorrhoids: Code(s): K64.9 - Unspecified hemorrhoids Plan Pt has been lost to follow up since 07/2022 despite requesting a 6 week follow up. She tells me that she has a new orange kitten! She says she is doing well overall. She continues on her omeprazole, imipramine, proctosol cream, and fiber. She still has some fecal incontinence, but overall this has improved. The stool are solid to looser. The fiber has likely helped. She had one episode of RB on the TT after straining to move her bowels. None since. Proctosol. Her colonoscopy is UTD as it was last in 2021 and she is due for repeat in 2026. She continues to lose weight via intentional dieting, she is down 153 LBS. Her dtr a couple of years ago choking on a piece of meat. She has a granddaughter that she does not see. ROV 6 mos. Medications: New hydrocortisone 2.5% (Proctosol HC) 1 appl NC BID PRN 30 grams 6RF hemorrhoids K64.9 - Unspecified hemorrhoids Refilled imipramine HCl 50 mg (2 x 25 mg) PO BEDTIME 60 tabs 6RF K59.00 - Constipation, unspecified wheat dextrin (Benefiber Sugar Free (dextrin)) mix into at least 4 oz water or juice before administering 1.5 grams PO BID 236 grams 6RF omeprazole 20 mg PO QAM 30 caps 6RF TODAY'S VISIT She continues on her imipramine, omeprazole 20 mg a day fiber, and Proctosol cream. This continues to work well for her. She will be having her thyroid checked in August, her weight has been going up and down like a yo-yo. She had to give up the orange cat, it bit her and caused hand damage - but the cat found another good home. ROV 6 mos. [facility] Medical History (Updated 08/24/24 @ 14:57 by MATTHIAS Ferrell) Anemia Cat bite of forearm Cellulitis Hyponatremia Abscess of right forearm Unspecified injury of extensor muscle, fascia and tendon of right thumb at wrist and hand level, initial encounter Acute hypokalemia Colitis Diverticulitis Esophagitis Seizures Syncope History of TIA (transient ischemic attack) CHF (congestive heart failure) Essential hypertension Hyperlipidemia Type 2 diabetes mellitus with chronic kidney disease Chronic kidney disease, stage 3 Anemia COPD (chronic obstructive pulmonary disease) Asthma JANET (obstructive sleep apnea) Nicotine dependence, cigarettes, uncomplicated Restless leg syndrome Obesity Tubular adenoma of colon IBS (irritable bowel syndrome) Constipation Primary osteoarthritis of right knee Osteoarthritis Right knee pain History of migraine Surgical History History of appendectomy History of cholecystectomy History of esophagogastroduodenoscopy (EGD) History of colonoscopy History of total left knee replacement (TKR) History of arthroscopy of left knee History of arthroscopy of right knee History of elbow surgery History of surgery on wrist History of carpal tunnel release of both wrists History of lumpectomy of right breast Family History Father Hx of gout Diabetes Mother Diabetes Daughter Pre-diabetes Brother Cancer Social History Household Members: None Housing: Apartment Do you presently have visiting nurse or other home services: Yes Alcohol intake: never Patient Tobacco Use Status: Current everyday Tobacco user Tobacco use type: Cigarette Cigarette Packs Per Day: 1 Cigarettes Per Day: 20.0 Years Smoked: onset 16yo, 3ppd x 47yrs, now 2ppd, >100pyh e-Cigarette/Vaping Use: Never Used Second Hand Smoke Exposure: No Advance Directives Date on File: 02/18/21 service: No Current occupational status: disabled Current occupation: left hand dominant Review of Systems Const Denies fatigue, Denies fever(s), Denies night sweats, Denies poor appetite and Denies weight loss Eyes Details: glasses Reports requires corrective lenses ENT Reports Normal hearing present, Denies dental pain, Denies dysphagia, Denies hearing loss, Denies mouth pain, Denies odynophagia, Denies throat swelling, Denies tongue swelling and Reports other (Dentition adequate) Card Reports no additional complaints Resp Reports no additional complaints GI Details: Denies abdominal pain, Denies melena, Denies bloating, Denies hematochezia, Denies constipation, Denies GI cramping, Denies dysphagia, Denies excessive flatus, Denies early satiety, Reports heartburn, Denies diarrhea, Reports loose stools, Denies nausea, Denies odynophagia, Denies vomiting and Denies hematemesis Musc Reports abnormal gait, Reports arthralgias and Reports muscle weakness Skin/Breast Denies pruritus, Denies lesions, Denies rash and Denies jaundice Neuro Reports Normal hearing present, Denies Abnormal speech present, Reports abnormal gait and Reports seizure-like activity Endo Denies fatigue Aller/Immun Denies throat swelling and Denies tongue swelling Physical Exam Vital Signs: Last Vital Signs Pulse 93 08/24/24 14:49 BP 98/52 L 08/24/24 14:49 Pulse Ox 98 08/24/24 14:49 Oxygen Delivery Method Room Air 08/24/24 14:49 BMI result Body Mass Index 25.7 Const General: cooperative, no acute distress, well developed and well groomed Nutritional Appearance: average body habitus and well nourished Orientation/consciousness: oriented to person, oriented to place and oriented to time Limitations: No language barrier and wheelchair HEENT Head: Yes normocephalic and Yes atraumatic Eyes General: appearance normal, both eyes and all related structures Pupils: Equal, round and reactive pupils present Neck Neck: Yes normal visual inspection and Yes no lymphadenopathy Thyroid: Thyroid normal Resp Effort & Inspection: normal respiratory effort and able to speak in complete sentences Auscultation: clear to auscultation bilaterally Cardio Rate: regular rate Rhythm: regular rhythm Heart sounds: Normal, physiologic split S2 sound present Peripheral pulses: radial pulses present and posterior tibial pulses present GI Inspection: No distended and No Abdominal panniculus present Palpation (GI): Soft to palpation, nontender, no guarding, not rigid and No hepatosplenomegaly present Percussion: Yes normal to percussion Auscultation: normal bowel sounds Rectal Exam - Female: deferred Skin General skin exam: no rashes or lesions noted, turgor normal, skin not dry, no jaundice, No spider nevi and no striae Rashes: no rashes Nails: normal Neuro General: oriented to person, oriented to place and oriented to time Cranial nerves: Yes Equal, round and reactive pupils present and Yes Normal hearing present Speech: No Abnormal speech present Extrem General: Yes normal to inspection, No clubbing, No cyanosis and No edema Psych Appearance: grossly normal and well kempt Mental Status: mental status grossly normal Speech and movement: Normal speech and movement present Affect: normal affect Attitude: cooperative Thought process: Normal thought process present and not confabulating Thought content: Normal thought content present Insight: Fair insight present (Psych) and Limited insight present (Psych) Judgement: Fair judgement present (Psych) and Limited judgement present (Psych) Assessment & Plan Assessment & Plan (1) GERD (gastroesophageal reflux disease): Code(s): K21.9 - Gastro-esophageal reflux disease without esophagitis Category: Medical (2) IBS (irritable bowel syndrome): Code(s): K58.9 - Irritable bowel syndrome, unspecified Category: Medical Plan She continues on her imipramine, omeprazole 20 mg a day fiber, and Proctosol cream. This continues to work well for her. She will be having her thyroid checked in August, her weight has been going up and down like a yo-yo. She had to give up the orange cat, it bit her and caused hand damage - but the cat found another good home. ROV 6 mos. Medications: New omeprazole 20 mg PO DAILY@0630 30 caps 6RF Refilled imipramine HCl 50 mg (2 x 25 mg) PO BEDTIME 60 tabs 6RF Coding Level of Care Code Est Pt Level 3 (85684) Diagnoses GERD (gastroesophageal reflux disease) K21.9 IBS (irritable bowel syndrome) K58.9
[2024-08-24 14:49] VITALS: BP 98/52; PULSE 93; O2SAT 98; BMI 25.7
--- OUTSIDE RECORDS SUMMARY | 2024-08-24 15:31 | XMS_ITS | Encounter Summary ---
Author Organization [employer] Address [address] [place] [address] Care Team Providers Care Order Checker Name Role Phone April Dave Primary Care Provider [phone] Eduarda Krishnan MD Unavailable [phone] June Unavailable Reason for Visit * Reason Onset Date Comments Hospital Follow-up 12/16/2023 Encounter Details Date Type Department Care Team (Late st Contact Info) Description 12/16/2023 Telephone [facility] [address] [place] [address] April Dave ANP [address] [place] [address] Hospital Follow-up Social History Tobacco Use Types [...] from pt requesting a HDF appt. Hospital: [facility] Date of admission: 12/09/23 Discharge date: 12/11/23 Diagnosed: Hand Surgery documented in this encounter Plan of Treatment Not on file documented as of this encounter Visit Diagnoses Not on filedocumented in this encounter Care Teams Order Checker Relationship Specialty Start Date End Date April Dave ANP [address] [place] [address] PCP - General Family Medicine 11/16/20 Eduarda Krishnan MD [address] [place] [address] Hematology and Oncology 06/01/24June [address] [place] [address] [address] [place] [address] 06/01/24 documented as of this encounter
== END 2024-08-24 15:17 | disposition home or self-care (01) ==
LOC: HO.HGI 14:43
PROVIDERS: PCP Nurse Practitioner Primary Care; Visit Provider Nurse Practitioner
DX: K21.9 Gastro-esophageal reflux disease without esophagitis (principal); K58.9 Irritable bowel syndrome, unspecified
CPT/HCPCS: 99213

== ENCOUNTER → 2024-08-24 14:43 | Outpatient (BNVA) | payer OTHER, SELFPAY | PROVIDERS: PCP Nurse Practitioner Primary Care; Visit Provider Nurse Practitioner | DX: K21.9 Gastro-esophageal reflux disease without esophagitis (principal); K58.9 Irritable bowel syndrome, unspecified; K64.9 Unspecified hemorrhoids | CPT/HCPCS: 99212 ==

== ENCOUNTER 2024-09-08 08:54 | Outpatient (AMB) | payer OTHER, SELFPAY ==
--- NOTE | 2024-09-08 08:56 | A.OFFVIS_ITS ---
Vital Signs 09/08/24 08:57 Height 4 ft 9 in Weight 119 lb BMI 25.7 Intake Visit Reasons: Left shoulder pain and stiffness Intake Note: Vikki is a 64 year old left hand dominant female who presents with complaints of progressively worsening left shoulder pain and stiffness. The patient describes her pain as sharp in nature. Most of the pain is along the lateral aspect of her shoulder. Her symptoms have gotten worse over the last few years in spite of continued non operative treatments. She has had injections in the past which gave her minimal relief. She has also done physical therapy exercises which aggravated her pain. She has tried Tylenol and anti-inflammatory medicines which gave her minimal relief. The patient states that she has difficulty lifting her left hand above shoulder height. Allergies hydrocodone [From Vicodin] Allergy (Mild, Verified 09/08/24 09:00) ITCHING SHANAE Inhibitors [SHANAE INHIBITORS] Allergy (Unknown, Verified 09/08/24 09:00) UNKNOWN ENVIROMENTAL Allergy (Mild, Uncoded 09/08/24 09:00) HAYFEVER lysol wipes Allergy (Mild, Uncoded 09/08/24 09:00) Hives avacado Allergy (Unknown, Uncoded 09/08/24 09:00) NEPHROPATHY Medication List - Last Reconciled 09/08/24 by Marcel Paiz MD acetaminophen 1,000 mg PO Q6H PRN albuterol sulfate 90 mcg/actuation 2 puffs PO QID PRN atorvastatin 1 tab PO BEDTIME calcium carbonate-vitamin D3 600 mg-10 mcg (400 unit) 1 tab PO BID cefuroxime axetil 500 mg PO BID cetirizine 1 tab PO QAM ferrous sulfate 325 mg PO QAM fluticasone propionate 50 mcg/actuation 2 sprays intranasal DAILY fluticasone propionate 110 mcg/actuation 2 puffs inhalation BID PRN folic acid 1 mg PO DAILY imipramine HCl 50 mg (2 x 25 mg) PO BEDTIME levetiracetam 500 mg PO BID methimazole 5 mg PO DAILY metoprolol succinate ER 25 mg PO DAILY omeprazole 20 mg PO DAILY@0630 oxcarbazepine 1 tab PO BID ropinirole 1 mg PO BID PRN sertraline 50 mg PO DAILY sitagliptin phosphate (Januvia) 50 mg PO DAILY topiramate 100 mg PO BID vancomycin 125 mg PO Q6H [facility] Medical History Anemia Cat bite of forearm Cellulitis Hyponatremia Abscess of right forearm Unspecified injury of extensor muscle, fascia and tendon of right thumb at wrist and hand level, initial encounter Acute hypokalemia Colitis Diverticulitis Esophagitis Seizures Syncope History of TIA (transient ischemic attack) CHF (congestive heart failure) Essential hypertension Hyperlipidemia Type 2 diabetes mellitus with chronic kidney disease Chronic kidney disease, stage 3 Anemia COPD (chronic obstructive pulmonary disease) Asthma JANET (obstructive sleep apnea) Nicotine dependence, cigarettes, uncomplicated Restless leg syndrome Obesity Tubular adenoma of colon IBS (irritable bowel syndrome) Constipation Primary osteoarthritis of right knee Osteoarthritis Right knee pain History of migraine Surgical History History of appendectomy History of cholecystectomy History of esophagogastroduodenoscopy (EGD) History of colonoscopy History of total left knee replacement (TKR) History of arthroscopy of left knee History of arthroscopy of right knee History of elbow surgery History of surgery on wrist History of carpal tunnel release of both wrists History of lumpectomy of right breast Family History Father Hx of gout Diabetes Mother Diabetes Daughter Pre-diabetes Brother Cancer Social History Household Members: None Housing: Apartment Do you presently have visiting nurse or other home services: Yes Alcohol intake: never Patient Tobacco Use Status: Current everyday Tobacco user Tobacco use type: Cigarette Cigarette Packs Per Day: 1 Cigarettes Per Day: 20.0 Years Smoked: onset 16yo, 3ppd x 47yrs, now 2ppd, >100pyh e-Cigarette/Vaping Use: Never Used Second Hand Smoke Exposure: No Advance Directives Date on File: 02/18/21 service: No Current occupational status: disabled Current occupation: left hand dominant Physical Exam Vital Signs: BMI result Body Mass Index 25.7 Const Other: Well-nourished well-developed very friendly female awake alert and oriented x3 in no acute distress Extrem Other: Bilateral upper extremity examination shows good capillary refill, no skin lesions noted, normal sensation light touch Left shoulder examination shows decreased active and passive range of motion when compared to her right shoulder, 4+ out of 5 strength with supraspinatus testing, positive impingement signs, tenderness over her acromioclavicular joint, no instability Results Reviewed Results Reviewed: MRI of the patient's left shoulder show severe acromioclavicular joint narrowing, a type 2 acromion, signal change within the supraspinatus tendon most likely due to adhesive capsulitis Assessment & Plan Assessment & Plan (1) Impingement syndrome of left shoulder: Code(s): M75.42 - Impingement syndrome of left shoulder Category: Medical Plan Ms. Willis presents with left shoulder pain and stiffness due to impingement syndrome, acromioclavicular joint arthritis and adhesive capsulitis. I had a lengthy discussion with the patient regarding the treatment options. At this point she has failed continued non operative treatments. The risks and benefits of left shoulder arthroscopic surgery were discussed at length with the patient. The patient wishes to proceed with surgery. Surgery will most likely involve left shoulder arthroscopic distal clavicle excision, left shoulder arthroscopic acromioplasty, left shoulder arthroscopic capsular release and left shoulder manipulation under anesthesia. The patient will follow-up as instructed. Feel free to call me at any time should questions regarding her orthopedic management arise. I spent 22 minutes in reviewing the patient's records and imaging studies, seeing the patient and documenting in the medical record. Coding Level of Care Code Est Pt Level 3 (42107) Complex EM visit Add On G2211 Diagnoses Impingement syndrome of left shoulder M75.42
[2024-09-08 08:57] VITALS: BMI 25.7
--- OUTSIDE RECORDS SUMMARY | 2024-09-08 09:27 | XMS_ITS | Encounter Summary ---
Author Organization [employer] Address [address] [place] [address] Care Team Providers Care Cleaner Carpet And Upholstery Name Role Phone April Dave Primary Care Provider [phone] Eduarda Krishnan MD Unavailable [phone] June Unavailable Reason for Visit * Reason Onset Date Comments Hospital Follow-up 12/16/2023 Encounter Details Date Type Department Care Team (Late st Contact Info) Description 12/16/2023 Telephone [facility] [address] [place] [address] April Dave ANP [address] [place] [address] Hospital Follow-up Social History Tobacco Use Types [...] from pt requesting a HDF appt. Hospital: [facility] Date of admission: 12/09/23 Discharge date: 12/11/23 Diagnosed: Hand Surgery documented in this encounter Plan of Treatment Not on file documented as of this encounter Visit Diagnoses Not on filedocumented in this encounter Care Teams [employer] Relationship Specialty Start Date End Date April Dave ANP [address] [place] [address] PCP - General Family Medicine 11/16/20 Eduarda Krishnan MD [address] [place] [address] Hematology and Oncology 06/01/24June [address] [place] [address] [address] [place] [address] 06/01/24 documented as of this encounter
== END 2024-09-08 09:12 | disposition home or self-care (01) ==
LOC: HO.HOS 08:54
PROVIDERS: PCP Nurse Practitioner Primary Care; Visit Provider Orthopaedic Surgery
DX: M75.42 Impingement syndrome of left shoulder (principal)
CPT/HCPCS: 99214; G2211

== ENCOUNTER → 2024-09-08 08:54 | Outpatient (BNVA) | payer OTHER, SELFPAY | PROVIDERS: PCP Nurse Practitioner Primary Care; Visit Provider Orthopaedic Surgery | DX: M75.42 Impingement syndrome of left shoulder (principal) | CPT/HCPCS: 99212 ==

== ENCOUNTER 2024-09-20 11:01 | Outpatient (REF) | payer OTHER, SELFPAY ==
[2024-09-20 13:19] LABS: Free T4 (Free Thyroxine) 1.47 ng/dL (0.71-1.85); Thyroid Stimulating Hormone < 0.01 uIU/mL (0.32-4.0)
[2024-09-21 06:29] LABS: Triiodothyronine T3 Free 7.6 pg/mL (2.3-4.2); Triiodothyronine T3 Total 245 ng/dL (76-181)
[2024-09-21 18:33] LABS: Thyroid Peroxidase Antibodies 321 IU/mL (<9)
[2024-09-23 17:48] LABS: Thyroid Stimulating Immunoglob 417 % baseline (<140)
== END 2024-09-20 11:02 | disposition home or self-care (01) ==
LOC: HO.LAB 11:01
PROVIDERS: PCP Nurse Practitioner Primary Care; Visit Provider Student in an Organized Health Care Education/Training Program
DX: E05.90 Thyrotoxicosis, unspecified without thyrotoxic crisis or storm (principal)
CPT/HCPCS: 36415; 84439; 84443; 84445; 84480; 84481; 86376; 99202

== ENCOUNTER 2024-09-20 11:01 | Outpatient (AMB) | payer OTHER, SELFPAY ==
[2024-09-20 11:03] VITALS: BP 158/48; PULSE 118; O2SAT 95; BMI 25.7
--- NOTE | 2024-09-20 11:03 | MHC.OFFVIS ---
Vital Signs 09/20/24 11:03 Height 4 ft 9 in Weight 118 lb 9.739 oz BMI 25.7 BP 158/48 H Blood Pressure Location Lt brachial Position Sitting Pulse 118 H Pulse Source Pulse Oximeter Pulse Oximetry (%) 95 Oxygen Delivery Method Room Air Intake Visit Reasons: Hyperthyroidism Intake Note: Patient present today for Hyperthyroidism office visit. Chief Security Officer Required: No Accompanied by: Self / Same As Patient Allergies hydrocodone (From Vicodin) Allergy (Mild, Verified 09/20/24 11:08) ITCHING SHANAE Inhibitors (SHANAE INHIBITORS) Allergy (Unknown, Verified 09/20/24 11:08) UNKNOWN ENVIROMENTAL Allergy (Mild, Uncoded 09/20/24 11:08) HAYFEVER lysol wipes Allergy (Mild, Uncoded 09/20/24 11:08) Hives avacado Allergy (Unknown, Uncoded 09/20/24 11:08) NEPHROPATHY Medication List - Last Reconciled 09/20/24 by Eunice Jade MD acetaminophen 1,000 mg PO Q6H PRN albuterol sulfate 90 mcg/actuation 2 puffs PO QID PRN atorvastatin 1 tab PO BEDTIME calcium carbonate-vitamin D3 600 mg-10 mcg (400 unit) 1 tab PO BID cefuroxime axetil 500 mg PO BID cetirizine 1 tab PO QAM ferrous sulfate 325 mg PO QAM fluticasone propionate 50 mcg/actuation 2 sprays intranasal DAILY fluticasone propionate 110 mcg/actuation 2 puffs inhalation BID PRN folic acid 1 mg PO DAILY imipramine HCl 50 mg (2 x 25 mg) PO BEDTIME levetiracetam 500 mg PO BID methimazole 5 mg PO DAILY metoprolol succinate ER 25 mg PO DAILY omeprazole 20 mg PO DAILY@0630 oxcarbazepine 1 tab PO BID ropinirole 1 mg PO BID PRN sertraline 50 mg PO DAILY sitagliptin phosphate (Januvia) 50 mg PO DAILY topiramate 100 mg PO BID vancomycin 125 mg PO Q6H HPI Comments Details: 64-year-old female coming in today for initial evaluation of hyperthyroidism. 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 Diagnosed with hyperthyroidism in July 2024 when TSH was suppressed at less than 0.01 with a elevated free T4 1.89 these are labs from 08/02/2024. Previously she has had suppressed TSH at least since 2022 with normal free T4 levels consistent with subclinical hyperthyroidism that has now progressed to overt hyperthyroidism. Labs from December 2023 showed positive TSH receptor antibody 3.05 consistent with Graves disease. Methimazole 5 mg daily started July 2024 Taking it every morning She has been on metoprolol 25 mg extended release daily for hypertension for some years. Reports palpitations since the past 3-4 months. No tremors. Denies diarrhea. Denies heat intolerance and diaphoresis. No skin hair changes. some intermittent anxiety. Lost 40 lb s over the past year , and 10 lbs in the last 6 months. Patient currently denies changes in appearance of eyes or vision changes. ? Patient denies any difficulty swallowing, pain on swallowing or voice changes or difficulty breathing. Patient denies any history of childhood neck radiation. Denies having ever used lithium, amiodarone or biotin supplements. Patient denies any family history of thyroid cancer or thyroid disease. Smokes 4-5 cigarettes a day Physical exam General: sitting comfortably in no acute distress HEENT: normocephalic/atraumatic, EOM intact, moist oral mucosa Neck: supple, symmetrical, no thyromegaly Cardiac: normal heart sounds Pulm: normal breath sounds B/L, no added breath sounds Abd: not distended, no tenderness Extremities: no edema, no signs of myxedema, mild tremor noted Neuro: AAO x3, Speech: normal, no facial droop, moving all 4 extremities Laboratory Tests 02/02/23 12/31/23 01/04/24 15:30 11:11 12:06 WBC RBC Hgb Hct Neut % (Auto) Absolute Neuts (auto) Total Bilirubin Direct Bilirubin AST ALT Alkaline Phosphatase TSH < 0.01 L < 0.01 L < 0.01 L Free T4 1.05 1.14 1.04 TSH Receptor Ab 3.05 H 02/21/24 08/02/24 08/12/24 05:25 16:31 17:15 WBC 5.8 RBC 3.57 L Hgb 9.6 L Hct 30.4 L Neut % (Auto) 39.2 L Absolute Neuts (auto) 2.3 Total Bilirubin 0.4 Direct Bilirubin 0.2 AST 26 ALT 18 Alkaline Phosphatase 95 TSH 0.01 L < 0.01 L Free T4 1.29 1.89 H TSH Receptor Ab PFSH Medical History (Updated 09/20/24 @ 11:40 by Eunice Jade MD) Graves' disease Hyperthyroidism Anemia Cat bite of forearm Cellulitis Hyponatremia Abscess of right forearm Unspecified injury of extensor muscle, fascia and tendon of right thumb at wrist and hand level, initial encounter Acute hypokalemia Colitis Diverticulitis Esophagitis Seizures Syncope History of TIA (transient ischemic attack) CHF (congestive heart failure) Essential hypertension Hyperlipidemia Type 2 diabetes mellitus with chronic kidney disease Chronic kidney disease, stage 3 Anemia COPD (chronic obstructive pulmonary disease) Asthma JANET (obstructive sleep apnea) Nicotine dependence, cigarettes, uncomplicated Restless leg syndrome Obesity Tubular adenoma of colon IBS (irritable bowel syndrome) Constipation Primary osteoarthritis of right knee Osteoarthritis Right knee pain History of migraine Surgical History History of appendectomy History of cholecystectomy History of esophagogastroduodenoscopy (EGD) History of colonoscopy History of total left knee replacement (TKR) History of arthroscopy of left knee History of arthroscopy of right knee History of elbow surgery History of surgery on wrist History of carpal tunnel release of both wrists History of lumpectomy of right breast Family History Father Hx of gout Diabetes Mother Diabetes Daughter Pre-diabetes Brother Cancer Social History Household Members: None Housing: Apartment Do you presently have visiting nurse or other home services: Yes Alcohol intake: never Patient Tobacco Use Status: Current everyday Tobacco user Tobacco use type: Cigarette Cigarette Packs Per Day: 1 Cigarettes Per Day: 20.0 Years Smoked: onset 16yo, 3ppd x 47yrs, now 2ppd, >100pyh e-Cigarette/Vaping Use: Never Used Second Hand Smoke Exposure: No Advance Directives Date on File: 02/18/21 service: No Current occupational status: disabled Current occupation: left hand dominant Physical Exam Vital Signs: Last Vital Signs Pulse 118 H 09/20/24 11:03 BP 158/48 H 09/20/24 11:03 Pulse Ox 95 09/20/24 11:03 Oxygen Delivery Method Room Air 09/20/24 11:03 BMI result Body Mass Index 25.7 Assessment & Plan Assessment & Plan (1) Hyperthyroidism: Code(s): E05.90 - Thyrotoxicosis, unspecified without thyrotoxic crisis or storm Category: Medical Plan: 64-year-old female here today for initial evaluation of hyperthyroidism. Diagnosed in July 2024, with labs showing suppressed TSH less than 0.01, free T4 elevated at 1.89. TSH receptor antibodies elevated from December 2023 consistent with Graves disease. Before that she has had subclinical hyperthyroidism for at least the past 3 years which has now progressed to overt hyperthyroidism. She was started on methimazole 5 mg daily by primary care provider in July 2024. She endorses adherence to the medication. She continues to have palpitations, weight loss, has a mild tremor. Her heart rate today is elevated at 118. At this point I will go up on her metoprolol, she is on it for hypertension, also there is some history of CHF in the chart but she could not tell me her global compensation analyst name and I am could not find any notes in our chart. We will increase the metoprolol to 50 mg extended release to get better control of her tachycardia. I will also have her repeat labs today. Depending on the results we might have to titrate of the dose of methimazole. Interestingly she does not have a goiter. She also does not have any signs for Graves orbitopathy. Discussed with patient that about 30% of the patients have remission after 12-18 months of treatment with methimazole. More recent data has shown longer periods of treatment resulting in better remission rates as well. At this time we will plan to continue treatment with methimazole and continue adjusting the dose as needed. In the long run if she does not have remission, we also briefly discussed definitive therapy options of radioactive iodine ablation and total thyroidectomy and the need for requiring long-term levothyroxine therapy after those procedures. The following were discussed as potential side effects of methimazole: - Serious skin rashes - nausea, vomiting, or severe hepatic injury - Agranulocytosis: a rare side effect of methimazole involves a severe decrease in the production of white blood cells. This condition is extremely serious, but affects only one out of every 200 to 500 people who take an antithyroid drug. Agranulocytosis more commonly occurs within the first three months of starting treatment with an antithyroid drug, but can occur at any time. If patient develops a fever (temperature above 100.5F), or other signs or symptoms of infection, she should stop taking the tapazole and immediately have a complete blood count (CBC) done. Serious and potentially life threatening infections, or even , can occur before agranulocytosis resolves. However, once the antithyroid drug is stopped, agranulocytosis usually resolves within a week. - Arthralgias, myalgias - Renal: Nephritis - Fever Patient will stop medication and call our office if these occur. Plan: -continue methimazole 5 mg daily -ordered TSH, free T4, total T3, free T3, TSI and TPO antibodies today -we will reach out with the results -follow up in 7 weeks -increase metoprolol to 50 mg extended release daily (2) Graves' disease: Code(s): E05.00 - Thyrotoxicosis with diffuse goiter without thyrotoxic crisis or storm Category: Medical Plan: See above Plan I spent 45 minutes in reviewing the record, seeing the patient and documenting in the medical record. Orders: Orders Triiodothyronine T3 Free Today E05.90 - Thyrotoxicosis, unspecified without thyrotoxic crisis or storm Thyroid Peroxidase Antibodies Today E05.90 - Thyrotoxicosis, unspecified without thyrotoxic crisis or storm Thyroid Stimulating Immunoglob Today E05.90 - Thyrotoxicosis, unspecified without thyrotoxic crisis or storm Thyroid Stimulating Hormone Today E05.90 - Thyrotoxicosis, unspecified without thyrotoxic crisis or storm Free T4 (Free Thyroxine) Today E05.90 - Thyrotoxicosis, unspecified without thyrotoxic crisis or storm Triiodothyronine T3 Total Today E05.90 - Thyrotoxicosis, unspecified without thyrotoxic crisis or storm Medications: New metoprolol succinate ER 50 mg PO DAILY 30 tabs 3RF Patient Instructions: increase metoprolol to 50 mg daily Continue methimazole 5 mg daily but we will reach out once your blood work results are back for dose adjustment Do blood work today, we will reach out with results The following were discussed as potential side effects of methimazole: - Serious skin rashes - nausea, vomiting, or severe hepatic injury - Agranulocytosis: a rare side effect of methimazole involves a severe decrease in the production of white blood cells. This condition is extremely serious, but affects only one out of every 200 to 500 people who take an antithyroid drug. Agranulocytosis more commonly occurs within the first three months of starting treatment with an antithyroid drug, but can occur at any time. If patient develops a fever (temperature above 100.5F), or other signs or symptoms of infection, she should stop taking the tapazole and immediately have a complete blood count (CBC) done. Serious and potentially life threatening infections, or even , can occur before agranulocytosis resolves. However, once the antithyroid drug is stopped, agranulocytosis usually resolves within a week. - Arthralgias, myalgias - Renal: Nephritis - Fever Patient will stop medication and call our office if these occur. Coding Level of Care Code New Pt Level 4 (47387) Diagnoses Hyperthyroidism E05.90 Graves' disease E05.00 Time Spent (min) 45
--- OUTSIDE RECORDS SUMMARY | 2024-09-20 12:40 | XMS_ITS | Patient Health Record ---
Author Organization [facility] Address [address] [place] [id number] Care Team Providers Care Family Nurse Practitioner Name Role Phone Jose Cruz Unavailable [phone] Reason For Referral No Information Plan Of Treatment No Information
== END 2024-09-20 11:36 | disposition home or self-care (01) ==
LOC: HO.ENCR 11:02
PROVIDERS: PCP Nurse Practitioner Primary Care; Visit Provider Student in an Organized Health Care Education/Training Program
DX: E05.90 Thyrotoxicosis, unspecified without thyrotoxic crisis or storm (principal); E05.00 Thyrotoxicosis with diffuse goiter without thyrotoxic crisis or storm
CPT/HCPCS: 99204

== ENCOUNTER 2024-10-05 09:09 | Outpatient (AMB) | payer OTHER, SELFPAY ==
[2024-10-05 09:12] VITALS: BMI 25.5
--- NOTE | 2024-10-05 09:12 | A.OFFVIS_ITS ---
Vital Signs 10/05/24 09:12 Height 4 ft 9 in Weight 118 lb BMI 25.5 Intake Visit Reasons: OV- R thumb extensor tendon injury, I&D 12/06/23 Intake Note: Vikki 64 yr old left hand dominant female presents today for her follow up visit for her Ruptured extensor tendon of hand/ wrist. At her last visit she was advise to work on passive & active thumb ROM exercises at home, she was referred to OT hand therapy to have a custom thumb splint made, to be worn for 6-8 hours daily to prevent development of flexion contracture. Patient currently states she has completed O.T sessions and has continue to wear her splint however she has not have much improvement. ` Allergies hydrocodone (From Vicodin) Allergy (Mild, Verified 10/05/24 09:24) ITCHING SHANAE Inhibitors (SHANAE INHIBITORS) Allergy (Unknown, Verified 10/05/24 09:24) UNKNOWN ENVIROMENTAL Allergy (Mild, Uncoded 10/05/24 09:24) HAYFEVER lysol wipes Allergy (Mild, Uncoded 10/05/24 09:24) Hives avacado Allergy (Unknown, Uncoded 10/05/24 09:24) NEPHROPATHY HPI HPI OV- R thumb extensor tendon injury, I&D 12/06/23: Details: Vikki is a 64 year old right hand dominant woman who returns to discuss treatment of her right thumb EPL tendon rupture. She is status post a right radial hand I&D due to a cat bite, DOS: 12/06/23. She complains of an inability to fully move her right thumb since her infection and subsequent surgery. She is able to bring her thumb down to a fist, but she is not able to fully extend her thumb. She was sent to OT hand therapy to have a custom thumb splint made for her, has not been wearing it.. She has multiple medical comorbidities, including Diabetes, heart failure, COPD, CKD III, and is a smoker. She says her Diabetes is very well controlled with lifestyle changes and her PCP recently discontinued her medications. She is concerned that she is losing weight unintentionally over the last several months. The patient reports that a workup by her primary care physician showed problems with her thyroid which they are working on. She is scheduled for a left shoulder with Dr. Paiz on 10/21/24. COUNTS INCLUDE 234 BEDS AT THE [facility] Medical History (Updated 09/20/24 @ 11:40 by Eunice Jade MD) Graves' disease Hyperthyroidism Anemia Cat bite of forearm Cellulitis Hyponatremia Abscess of right forearm Unspecified injury of extensor muscle, fascia and tendon of right thumb at wrist and hand level, initial encounter Acute hypokalemia Colitis Diverticulitis Esophagitis Seizures Syncope History of TIA (transient ischemic attack) CHF (congestive heart failure) Essential hypertension Hyperlipidemia Type 2 diabetes mellitus with chronic kidney disease Chronic kidney disease, stage 3 Anemia COPD (chronic obstructive pulmonary disease) Asthma JANET (obstructive sleep apnea) Nicotine dependence, cigarettes, uncomplicated Restless leg syndrome Obesity Tubular adenoma of colon IBS (irritable bowel syndrome) Constipation Primary osteoarthritis of right knee Osteoarthritis Right knee pain History of migraine Surgical History History of appendectomy History of cholecystectomy History of esophagogastroduodenoscopy (EGD) History of colonoscopy History of total left knee replacement (TKR) History of arthroscopy of left knee History of arthroscopy of right knee History of elbow surgery History of surgery on wrist History of carpal tunnel release of both wrists History of lumpectomy of right breast Family History Father Hx of gout Diabetes Mother Diabetes Daughter Pre-diabetes Brother Cancer Social History Household Members: None Housing: Apartment Do you presently have visiting nurse or other home services: Yes Alcohol intake: never Patient Tobacco Use Status: Current everyday Tobacco user Tobacco use type: Cigarette Cigarette Packs Per Day: 1 Cigarettes Per Day: 20.0 Years Smoked: onset 16yo, 3ppd x 47yrs, now 2ppd, >100pyh e-Cigarette/Vaping Use: Never Used Second Hand Smoke Exposure: No Advance Directives Date on File: 02/18/21 service: No Current occupational status: disabled Current occupation: left hand dominant Review of Systems Const All systems reviewed & are unremarkable except as noted in HPI and below Physical Exam Vital Signs: BMI result Body Mass Index 25.5 Const General: no acute distress and alert Orientation/consciousness: patient oriented x3 Neuro General: patient oriented x3 Extrem Other: Evaluation of Right Upper Extremity: The patient is alert, oriented, and in no acute distress sensation is normal to the tips of all digits Cap refill brisk ROM: She was able to bring all her fingers closed to a fist She was able to oppose her thumb to all digits She is unable to extend her thumb at the IP or MCP joints. Unable to elevate thumb off of the table when hand placed flat. I can passively extend the thumb, however she is having increased tightness of the FPL tendon. Psych Appearance: grossly normal Affect: normal affect Attitude: cooperative Assessment & Plan Assessment & Plan (1) Ruptured extensor tendon of hand or wrist: Code(s): S66.819A - Strain of other specified muscles, fascia and tendons at wrist and hand level, unspecified hand, initial encounter Category: Medical (2) Type 2 diabetes mellitus with chronic kidney disease: Code(s): E11.22 - Type 2 diabetes mellitus with diabetic chronic kidney disease Category: Medical (3) COPD (chronic obstructive pulmonary disease): Code(s): J44.9 - Chronic obstructive pulmonary disease, unspecified Category: Medical (4) Chronic kidney disease, stage 3: Code(s): N18.30 - Chronic kidney disease, stage 3 unspecified Category: Medical (5) Nicotine dependence, cigarettes, uncomplicated: Comment: (current smoker- onset 16yo, 3ppd x 47yrs, now 2ppd, >100pyh) Code(s): F17.210 - Nicotine dependence, cigarettes, uncomplicated Category: Medical (6) Heart failure: Code(s): I50.9 - Heart failure, unspecified Category: Medical (7) History of TIA (transient ischemic attack): Comment: (Rt facial droop 12/29/2015; Rt facial droop 10/11/2016; Lt facial droop/weakness 08/22/2017) Code(s): Z86.73 - Personal history of transient ischemic attack (TIA), and cerebral infarction without residual deficits Category: Medical Plan Assessment & Plan: 1. Right thumb extensor pollicis longus tendon rupture Patient S/P hand infection following cat bite and subsequent I and D DOS: 12/06/23 2. Right hand cat bite S/P radial & dorsal I&D DOS: 12/06/23 Infection completely resolved I educated her about this condition I had a long discussion with her concerning operative treatment options, including a tendon transfer surgery She would benefit from an EIP to EPL tendon transfer. She finds this limitation very bothersome and is interested in having this fixed. The patient would like to proceed with surgery The patient has a number of significant medical conditions, and has explained that she has been experiencing unintentional weight loss, which may be related to a Thyroid condition. It looks like she has been given preoperative clearance as she is scheduled to have a shoulder arthroscopy with Dr. Paiz on 10/21/24, and has pre-op clearance. I recommend she work on passive & active thumb ROM exercises at home She has not been wearing her custom thumb splint made for her by OT. I ordered OT hand therapy to work on ROM exercises prior to possible surgery, and to have a new custom thumb splint made, which holds her thumb in extension, to be worn for 6-8 hours daily to prevent development of flexion contracture. She denies blood thinners, asthma She has CKD III, COPD, Hx of heart failure, and is a smoker. She says she has cut her smoking down to 1+ packs a day, and uses a nicotine inhaler. She says she is in the process of slowly quitting. She is a Diabetic, and does not know her most recent HgA1c. She says this is well controlled with lifestyle choices, and her PCP has taken her off her Diabetes medications. She will follow up in 8 weeks to see how she is doing, and to discuss possible surgical intervention for when she has recovered from her shoulder surgery. Scribed for Lupe Moreno MD by Solo Calderon, medical sales, on 10/05/24 at 9:20 AM, EST. Coding Level of Care Code Est Pt Level 4 (19270) Diagnoses Ruptured extensor tendon of hand or wrist S66.819A Type 2 diabetes mellitus with chronic kidney disease E11.22 COPD (chronic obstructive pulmonary disease) J44.9 Chronic kidney disease, stage 3 N18.30 Nicotine dependence, cigarettes, uncomplicated F17.210 Heart failure I50.9 History of TIA (transient ischemic attack) Z86.73
--- OUTSIDE RECORDS SUMMARY | 2024-10-05 09:25 | XMS_ITS | Patient Health Record ---
Author Organization [facility] Address [address] [place] [id number] Care Team Providers [facility] Orthopedist Name Role Phone Jose Cruz Unavailable [phone] Reason For Referral No Information Plan Of Treatment No Information
--- OUTSIDE RECORDS SUMMARY | 2024-10-05 09:25 | XMS_ITS | Data Portability ---
Author Organization [facility], [facility] Address [address] [place] [address] Care Team Providers Care Cone Tender Name Role Phone [facility] Referring Provider HIM CCA OTHER Assessment Encounter Date Assessment Date Assessment LastModified by Organization Details LastModified Time 02/23/2023 02/23/2023 As noted, we were called to see this patient regarding concerns of Evaluation in the field was performed by my heating and ventilating drafter colleague, as noted above, I provided real-time [...] assessment and plan as documented by the heating and ventilating drafter. I provided real-time medical direction for this [...] in the field was performed by my heating and ventilating drafter colleague, as noted above, I provided real-time [...] Assessment and Plan as documented by the Framing Mechanic. We discussed the diagnostic uncertainty of home [...] to call 911- verbalized understanding of instruction [email or web address] Not available 03/08/2024 00:03:32 07/27/2024 07/27/2024 Impression: [...] pill or obstructions, low suspicion for perforation, ROBOTICS SPECIALIST, RPA, abscess, meningitis. Unclear if this is [...] of any new or worsening serious symptoms [email or web address] Not available 07/27/2024 13:02:59 Plan of Treatment Reminders Order Date Submit Date Provider Last Modified By Organization Details Last Modified Time Details Appointments None recorded. Lab rapid SARS CoV 2 Ag, QL IA, respiratory specimen [address], [phone] 5 14:30:50 rapid flu (A+B) [address], [id number] 5 14:28:58 rapid strep group A, throat [address], [id number] 5 14:32:11 BMP, serum or plasma 2023 024 [email or web address] [facility], [address] [place] [address], [id number] 15:47:26 Referral None recorded. Procedures None recorded. Surgeries None recorded. Imaging None recorded. Medication Orders furosemide 10 mg/mL injection solution 2023 024 [email or web address] 0 [facility], [address] [place] [address], [id number], 4 15:47:26 potassium chloride ER 20 mEq tablet,exte nded release 2023 024 [email or web address] 0 [facility], [address] [place] [address], [id number], 4 15:47:26 azithromyci n 250 mg tablet 2022 023 [facility], [address] [place] [address], [id number], 3 12:11:17 Patient TargetsNo targets recorded. Patient [...] Name and Address Organization Details Recorded Time 19172 acetamino phen / hydrocodo ne medicatio n Not available Not available Not available 01/30/2024 98823 2 RxNorm Not Available [facility] - production 4 17:29:12 93112 hydrocodo ne Not available Not available Not available Not available 03/07/2024 5489 RxNorm Not Available [facility] - production 4 12:41:10 25480 tramadol medicatio n Not available Not available Not available 03/07/2024 46709 RxNorm Not Available [facility] - production 4 12:41:10 42295 lisinopri l medicatio n Not available Not available Not available 03/07/2024 43468 RxNorm Not Available [facility] - production 4 12:41:10 7573 albuterol medicatio n Not available Not available Not available 01/26/2024 435 RxNorm Not Available [facility] - production 4 03:38:23 Medications Name Sig Start Date Stop Date Status Note LastModified by Organization Details LastModified Time medbox status USE DIRECTED active Not Available Not Available No t Available pulse oximet airial [id number] USE TWICE DAILY DIRECTED active Not Available [...] Available Not Available No t Available FreeStyle [place] Lite kit USE DIRECTED active Not Available [...] Available Not Available Vitals Date Recorded Body temperature Body height Body weight Oxygen saturation Oxygen saturation in Arterial blood by Pulse oximetry Respiratory rate Heart rate Systolic And Diastolic Provider Name and Address Organization Details Last Updated DateTime 5 97.5 [degF] 144.78 cm 86431.6 72 g 98 % 98 % 18 /min 110 /min 108/66 mm[Hg] Not Available [facility] - production 5 12:53:59 Date Recorded Body temperature Oxygen saturation Oxygen saturation in Arterial blood by Pulse oximetry Respiratory rate Heart rate Systolic And Diastolic Provider Name and Address Organization Details Last Updated DateTime 4 96.3 [degF] 98 % 98 % 18 /min 90 /min 123/98 mm[Hg] Not Available [facility] 4 12:44:04 Date Recorded Respiratory rate Heart rate Body height Oxygen saturation Oxygen saturation in Arterial blood by Pulse oximetry Body weight Body temperature Systolic And Diastolic Provider Name and Address Organization Details Last Updated DateTime 4 20 /min 97 /min 147.32 cm 99 % 99 % 55988.6 96 g 98.1 [degF] 116/77 mm[Hg] Not Available [facility] 4 19:02:23 Date Recorded Body weight Respiratory rate Heart rate Oxygen saturation Oxygen saturation in Arterial blood by Pulse oximetry Body height Body temperature Systolic And Diastolic Provider Name and Address Organization Details Last Updated DateTime 3 89514.5 36 g 18 /min 98 /min 97 % 97 % 147.32 cm 100.6 [degF] 141/53 mm[Hg] Not Available [facility] 3 20:20:15 Date Recorded Body height Body mass index (BMI) Body weight Provider Name and Address Organization Details Last Updated DateTime 03/07/2024 147.32 cm 26.8 kg/m2 60653.82 g Rosario Maguire MD [address] [place] [address],[address], [place], [place], [address] [place] [address] - [employer] 03/07/2024 15:26:21 Date Recorded Heart rate Body temperature Oxygen saturation Oxygen saturation in Arterial blood by Pulse oximetry Respiratory rate Systolic And Diastolic Provider Name and Address Organization Details Last Updated DateTime 4 96 /min 96.9 [degF] 98 % 98 % 18 /min 151/86 mm[Hg] Not Available [facility] 4 15:08:50 Social History None recorded. Functional Status None recorded. Mental Status None recorded. Family History Nothing Reported. Medical History No medical history recorded. Gynecological HistoryNo gynecological history recorded. Obstetrics History GPAL:G 0 P 0 0 0 0 Past Encounters Encounter ID Performer Location Encounter Start Date Encounter Closed Date Diagnosis/Indication Diagnosis SNOMED-CT Code Diagnosis ICD10 Code Diagnosis Note [id number] Valmeek Kudesia, MD [facility] [address] [place] [address] [id number] 12/13/2021 20:36:20 12/20/2021 13:30:15 Cellulitis 923262354 L03.90 [id number] Yelena Landaverde MD [facility] - [facility] [address] [place] [address] [id number] 02/23/2023 20:14:26 02/23/2023 23:04:54 Community acquired pneumonia 873123289 J18.9 Acute exac erbation of chronic obstructive pulmonary disease 982285115 J44.1 [id number] Winsome Díaz MD Main - [facility] [address] [place] [id number] 10/24/2023 12:43:55 07/14/2024 20:07:33 Cat bite 847092915 W55.01XA [id number] Yelena Landaverde MD [facility] - [facility] [address] [place] [id number] 01/30/2024 19:02:19 02/01/2024 00:29:21 Abdominal pain 71618778 R10.9 Suprapubic pain 36934541 6 R10.30 [id number] Rosario Maguire MD Main - [facility] [address] [place] [address] [id number] 03/07/2024 15:08:39 03/08/2024 17:25:37 Peripheral edema 459897724 R60.9 No clinical evidence of CHFBoth legs more edematous than usual, right foot is more swollen than left/no history of trauma but no cords /Homans negative so DVT is unlikely. No warmth or erythema to suggest cellulitis . Primary care team: If patient continues to have pain/sts she will need imaging studies. Patient is quite anemic- her [facility] notes from 02/20 through 02/22/2024 state [...] return to 2000 mg per 24 hours [id number] Deni Santos MD Main - [facility] [address] [place] [id number] 07/27/2024 12:53:57 07/27/2024 14:12:25 Pain in throat 144947076 J02.9 Health Concerns Section Related Observation LastModified by Organization Detai ls LastModified Time None Recorded Concern Status LastModified by Organization Details LastModified Time None Recorded Advance Directives Directive None Recorded Payers Insurance Date Sequence Insurance Name Policy Number Policy Sepulveda Covered Member ID Sepulveda Member ID Guarantor Name 02/18/2024 1 [facility] - DOS PRIOR TO 2022 - DUAL ELIGIBLE (MEDICARE REPLACEMENT/AD VANTAGE - HMO) Vikki Willis [id number] Vikki Willis 07/27/2024 1 [facility] - DOS ON OR AFTER 2022 - DUAL ELIGIBLE - SKILLED NURSING OPTIONS AND ONE CARE (MEDICARE REPLACEMENT/AD VANTAGE - HMO) Vikki Willis [id number] Vikki Willis Notes Date Note Type Note [...] CRC RN DID NOT NEED FURTHER INFO [facility] HPI: runny nose, clear mucous, x 1 mo. seen by PCP, given cough medicine with codeine. last appt w PCP was 1 wk ago. still having productive cough. started corcidin last week 5d ago. using combivent and flovent. no sore throat, and some chest congestion Yelena Landaverde MD [address] [place] [address],[address], [place], [phone], [employer] 02/23/2023 20:29:29 10/24/2023 text/html CRC Nurse Triage Notes (Elizabeth Grijalva): Reason For Request: Patient was bit on the arm by her Kitten. Chief Complaints: Injury PMH: COPD/Asthma, Diabetes, Hypertension Allergies: Albuterol Other Allergies: Vicodin Comments: Polisher Sand verified the member's name//address and phone number.Member [...] .................... .................... .................... .................... .................... .................... . Framing Mechanic Note From Destini Castro: Pt with significant bite/scratch almendarez from kitten while both kittens in a fight. Kitten not yet fully vaccinated. A&ox3, vss, afebrile; one puncture site actively bleeding at present. C consulted, pt agreeable to go to ER by POV to have wounds irrigated and evaluated for stitches. Hand and wrist wrapped with clean dry dressing. Red flags reviewed. Framing Mechanic Allergies: Albuterol .................... .................... .................... .................... .................... .................... .................... . Disposition: Fulfilled Winsome Díaz MD [address] [place] [address],[address], [place], [phone], [employer] 10/24/2023 13:07:25 01/30/2024 text/html CRC Nurse Triage Notes (Figueroa Sanders): Reason For Request: Pt reporting problem going number number 2 primarily but notes having problems going number 1 as well Chief Complaints: Abdominal pain PMH: COPD/Asthma, Hypertension, Anxiety Disorder, Chronic Kidney Disease, Depression, Epilepsy/Seizure Disorder, Diabetes Mellitus Type 2 Comments: Polisher Sand verified the Pt.'s name//address and phone number. [...] scene and unable to make contacted - [place] [employer] contact and will be dispatching a unit [facility] HPI: pain w trying to urinate, like she has to push. some constipation. .................... .................... .................... .................... .................... .................... .................... . Framing Mechanic Note From Bob Ac: Pt chief complaint today of lower abdominal pain most closely related to the Pubic/perineal area. Pt states that she has been having this problem for 4 days prior to [facility] visit. Pt states she has been [...] Pt is CAOX4 with a GCS of 15[facility] Yelena Landaverde consultedPt expressed that it would be in her best interest to be seen at. Center of higher ability for more testing that [facility] cannot provide. Pt is also educated on the possible negative effects that can occur from waiting up t and including possible . Pt decides to wait till tomorrow for further diagnostics and treatmentPt is educated on red flag S&S and informed to call emergency services if any present. .................... .................... .................... .................... .................... .................... .................... . [facility] Consulted: Yelena Landaverde .................... .................... .................... .................... .................... .................... .................... . Disposition: Fulfilled Yelena Landaverde MD [address] [place] [address],[address] [facility], [place], [phone], [employer] 01/30/2024 19:47:48 03/07/2024 text/html HPI: Call returned [...] come into walk in center. Agrees to [facility] for evaluation. Confirmed demographics and allergies. .................... .................... .................... .................... .................... .................... .................... . CRC Nurse Triage Notes (Treasure Childers): Chief Complaints: Swelling PMH: COPD/Asthma, Hypertension, Anxiety Disorder, Chronic Kidney Disease, Depression, Epilepsy/Seizure Disorder, Diabetes Mellitus Type 2, Asthma Comments: HPI reviewed Framing Mechanic Organization Information for [facility] Legal Name: [facility] Address: [address] [place] [address], Sales Solutions Representative: Douglas Bucio MD CLIA No.: [id number] Framing Mechanic POC Test Results from James Greene [facility] (15:03:32) pH: 7.39 pH units pCO2: 32.2 mmHg pO2: 41.0 mmHg Na: 135 mmol/L K: 3.7 mmol/L iCa: 1.21 mmol/L Cl: 106 mmol/L TCO2: 19.2 mEq/L Hct: 28 % Hb: 9.5 g/dL Glu: 103 mg/dL Lac: 1.3 mmol/L Cr: 0.77 mg/dL BUN: 7 mg/dL A .................... .................... .................... .................... .................... .................... .................... . Framing Mechanic Note From James Greene: This 63-year-old female [...] increased warmth, point tenderness, cords and negative Homen s sign. POC labs uploaded.I treated this [...] .................... .................... .................... .................... .................... .................... . [facility] Consulted: Rosario Maguire .................... .................... .................... .................... .................... .................... .................... . Disposition: Fulfilled SEGMD: Patient denies trauma/she denies history of gout. Although her right foot is more swollen than the left she reports her legs are much more edematous than baseline and they are painful. She was hospitalized at [facility] the week of 02/20 with a potassium of 2 diverticulitis and a UTI. Her hemoglobin was noted to go from 11 down to 8 during that visit with no history of GI bleeding. She also has a PMH including but not limited to: Asthma/COPD/HTN/CHF/ /CKD/DM 2/epilepsy/(iron deficiency anemia, hyponatremia and hypokalemia per PCP note 03/03/2024)./Anxiety and depression. Rosario Maguire MD [address] [place] [address],[address], [place], [phone], [employer] 03/08/2024 00:13:48 07/27/2024 text/html HPI: Member took her morning meds, then c/o sore throat and mild congestion.Member unsure if it was one of the medications that irritated her throat or caused some difficulty swallowing. c/o mild cough and sore throat. Member is denying any other complaints.: note- info provided by Paula from [facility] .................... .................... .................... .................... .................... .................... .................... [...] signs of when to seek emergency care. Framing Mechanic Organization Information for [facility] [employer] Legal Name: [employer]. Address: [address] [place] [address], Sales Solutions Representative: Bran De La Rosa MD CLIA No.: [id number] Framing Mechanic POC Test Results from Kayleen Castellanos - JUNIOR Rapid COVID antigen (12:52:02) COVID: - Rapid influenza antigen (12:52:03) Flu: - Rapid strep test (12:52:27) Strep: - .................... .................... .................... .................... .................... .................... .................... . Framing Mechanic Note From Kayleen Castellanos: Sent to a [...] covid/flu test: neg; Rapid strep test: neg; [facility] consulted and pt is advised to monitor symptoms. Red flags discussed. Pt has no further questions. [facility] Lab Orders: rapid SARS CoV 2 Ag, QL IA, respiratory specimen: Performed rapid flu (A+B): Performed rapid strep group A, throat: Performed .................... .................... .................... .................... .................... .................... .................... . [facility] Consulted: Deni Santos .................... .................... .................... .................... .................... .................... .................... . Disposition: Fulfilled Deni Santos MD [address] [facility],[address], [place], [address], [email or web address] 07/27/2024 13:51:25 OBGyn Episode No OBEpisode recorded.
--- OUTSIDE RECORDS SUMMARY | 2024-10-05 09:25 | XMS_ITS | Encounter Summary ---
Author Organization [employer] Address [address] [facility] [address] [place] [address] Care Team Providers Care Field Pipelines Supervisor Name Role Phone April Dave Primary Care Provider [phone] Eduarda Krishnan MD Unavailable [phone] June Unavailable Reason for Visit * Reason Comments Med Refill Encounter Details Date Type Department Care Team ([facility] st Contact Info) Description 10/05/2024 Refill [facility] [address] [place] [address] April Dave ANP [address] [place] [address] Seizure disorder (CMS/HCC) Social History Tobacco Use [...] this encounter Visit Diagnoses Diagnosis Seizure disorder (CMS/[facility]) Unspecified epilepsy without mention of intractable epilepsy documented in this encounter Additional Health Concerns Assessment Noted Time PHQ-9 Depression Total Score: 1 12/31/19 24 10:03 AM EDT documented as of this encounter Care Teams Field Pipelines Supervisor Relationship Specialty Start Date End Date April Dave ANP [address] [place] [address] PCP - General Family Medicine 11/16/20 Eduarda Krishnan MD [address] [place] [address] Hematology and Oncology 06/01/24 RicoJune [address] [place] [address] 06/01/24 documented as of this encounter
--- OUTSIDE RECORDS SUMMARY | 2024-10-05 09:26 | XMS_ITS | Clinical Summary ---
Author Organization [facility] Address [address] [place] [address] Phone Care Team Providers Care Financial Quantitative Analyst Name Role Phone Inez Dewitt NP Primary Care Provider Allergies Active Allergy Reactions Criticality Noted Date [...] mouth 10/11/19 22 Active UltiCare Mini Pen Adams 31G X 6 MM misc USE FOUR [...] TWICE DAILY. RINSE MOUTH AFTER USING. 12/07/19 Active FeroSul 325 (65 Fe) MG tablet [...] BY MOUTH IN THE MORNING 135 tablet 09/14/19 25 Active furosemide (LASIX) 40 MG tablet TAKE 1 AND 1/2 TABLETS BY MOUTH IN THE MORNING 135 tablet 05/10/19 25 2024 Discontinued Active Problems Problem Noted Date [...] Encounters Date Type Department Care Team Description 09/12/2024 Refill [facility] [address] [place] [address] Alan Nash MD from Last 3 Months [...] Care Team (Late st Contact Info) Description 11/07/2024 3:45 PM EDT Office Visit [facility] [address] [place] [address] Alan Nash MD [address] [facility] [address] [place] [id number] Health Maintenance Due Date Last Done Comments Breast Cancer Screening 1960 Colorectal Cancer Screening: Annual FOBT 2009 Colorectal Cancer Screening: Colonoscopy 2009 Colorectal Cancer Screening: Sigmoidoscopy 2009 Diabetes: Ophthalmology Exam 04/29/2020 Diabetes: Pedal Pulse Checked 04/29/2020 Diabetes: Sensory Foot Exam 04/29/2020 Diabetes: Visual Foot Exam 04/29/2020 Diabetes: Hemoglobin A1C 07/21/2024 025, 12/31/2023, 05/05/2023 Influenza Vaccine (#1) 2024 3, 03/04/2021, 02/07/2020, Additional history exists Hepatitis B Vaccine Aged Out 08/17/2017, 02/03/2017, 09/24/2016, Additional history exists No longer eligible based on patient's age to complete this topic Pneumococcal Vaccine: 50+ Years Completed 07/01/2023, 11/07/2014, 07/27/2014, Additional history exists Pneumococcal Vaccine: Peds (0 to 5 Years) and At-Risk Patients (6 to 49 Years) Discontinued 07/01/2023, 11/07/2014, 07/27/2014, Additional history exists [place] [address] ([id number]) [place] [address] ([id number]) Care Teams Financial Quantitative Analyst Relationship Specialty Start Date End Date Inez Dewitt NP [address] [place] [id number] PCP - General 04/09/20
== END 2024-10-05 09:35 | disposition home or self-care (01) ==
LOC: HO.HOS 09:09
PROVIDERS: PCP Nurse Practitioner Primary Care; Visit Provider Orthopaedic Surgery
DX: S66.811A Strain of other specified muscles, fascia and tendons at wrist and hand level, right hand, initial encounter (principal); E11.22 Type 2 diabetes mellitus with diabetic chronic kidney disease; J44.9 Chronic obstructive pulmonary disease, unspecified; N18.30 Chronic kidney disease, stage 3 unspecified; F17.210 Nicotine dependence, cigarettes, uncomplicated; I50.9 Heart failure, unspecified; Z86.73 Personal history of transient ischemic attack (TIA), and cerebral infarction without residual deficits
CPT/HCPCS: 99214

== ENCOUNTER → 2024-10-05 09:09 | Outpatient (BNVA) | payer OTHER, SELFPAY | PROVIDERS: PCP Nurse Practitioner Primary Care; Visit Provider Orthopaedic Surgery | DX: S66.812A Strain of other specified muscles, fascia and tendons at wrist and hand level, left hand, initial encounter (principal); E11.22 Type 2 diabetes mellitus with diabetic chronic kidney disease; J44.9 Chronic obstructive pulmonary disease, unspecified; N18.30 Chronic kidney disease, stage 3 unspecified; F17.210 Nicotine dependence, cigarettes, uncomplicated; I50.9 Heart failure, unspecified; Z86.73 Personal history of transient ischemic attack (TIA), and cerebral infarction without residual deficits | CPT/HCPCS: 99212 ==

== ENCOUNTER 2024-10-13 11:23 | Outpatient (REF) | payer OTHER, SELFPAY ==
--- OUTSIDE RECORDS SUMMARY | 2024-10-13 12:13 | XMS_ITS | Encounter Summary ---
Author Organization [employer] Address [address] [facility] [address] [place] [address] Care Team Providers Care Terrazzo Layer Name Role Phone April Dave Primary Care Provider Eduarda Krishnan MD Unavailable [phone] June Unavailable Reason for Visit * Reason Onset Date Comments Hospital Follow-up 12/16/2023 Encounter Details Date Type Department Care Team (Late st Contact Info) Description 12/16/2023 Telephone [facility] [address] [place] [address] April Dave ANP [address] [place] [address] Hospital Follow-up Social History Tobacco Use Types [...] on filedocumented in this encounter Care Teams Terrazzo Layer Relationship Specialty Start Date End Date April Dave ANP [address] [place] [address] PCP - General Family Medicine 11/16/20 Eduarda Krishnan MD [address] [place] [address] Hematology and Oncology 06/01/24June [address] [place] [address] [address] [place] [address] 06/01/24 documented as of this encounter
--- OUTSIDE RECORDS SUMMARY | 2024-10-13 12:13 | XMS_ITS | Clinical Summary ---
Author Organization [facility] Address [address] [place] [address] Phone Care Team Providers Care Auto Mechanic Name Role Phone April Dave NP Primary Care Provider [phone] Social History Tobacco Use Types Packs/Day Years Used Date Smoking Tobacco: Never Assessed Comments Unknown Sex and Gender Information Value Date Recorded Sex Assigned at Not on file Legal Sex Female 9:35 AM EST Gender Identity Not on file Sexual Orientation Not on file Plan of Treatment Upcoming Encounters Date Type Department Care Team ([facility] st Contact Info) Description 12/19/2024 1:15 PM EDT Office Visit Orthopedic Surgery - [place] [address] [address] Terell Nicholas, BELKYS [address] [address] Health Maintenance Due Date Last Done Comments Breast Cancer Screening 1960 DTaP,Tdap,and Td Vaccines (1 - Tdap) 1979 Cervical Cancer Screening: P ap Smear 1981 Pneumococcal Vaccine: 50+ Ye ars (1 of 1 - PCV) 2010 Zoster Vaccines (1 of 2) 2010 COVID-19 Vaccine ( - 2023-2 5 season) 2023 Colorectal Cancer Screening: Colonoscopy 01/23/2024 HIV Screening 01/23/2024 Hepatitis C Screening 01/23/2024 Medicare Annual Wellness Visit 01/23/2024 Social Influencers of Health Screening 01/23/2024 Depression Screening 03/30/2024 Influenza Vaccine (#1) 2024 RSV Immunization Adult Patie nts (1 [...] patient's age to complete this topic Insurance [facility] MEDICARE Member Subscriber Plan / Payer (Ef fective 2016-Present) Name:JOSE WILLIS Relation to Subscriber:Self Name:Jose Willis Payer ID:[id number] Group ID:[id number] Type:Not on file Address: [place] [address] [address] [address] [id number] Care Teams Auto Mechanic Relationship Specialty Start Date End Date April Dave NP [address] [place] [phone] PCP - General 01/05/24
--- OUTSIDE RECORDS SUMMARY | 2024-10-13 12:13 | XMS_ITS | Patient Health Record ---
Author Organization [facility] Address [address] [place] [address] Care Team Providers Care Salary Manager Name Role Phone Jose Cruz Unavailable [phone] Reason For Referral No Information Plan Of Treatment No Information
--- OUTSIDE RECORDS SUMMARY | 2024-10-13 12:13 | XMS_ITS | Data Portability ---
Author Organization [facility] Address [address] [place] [address] Care Team Providers Care Public Information Coordinator Name Role Phone [facility] Referring Provider HIM CCA OTHER Assessment Encounter Date Assessment Date Assessment LastModified by Organization Details LastModified Time 02/23/2023 02/23/2023 As noted, we were called to see this patient regarding concerns of Evaluation in the field was performed by my character impersonator colleague, as noted above, I provided real-time [...] assessment and plan as documented by the character impersonator. I provided real-time medical direction for this [...] in the field was performed by my character impersonator colleague, as noted above, I provided real-time [...] Assessment and Plan as documented by the Injection Molding Technician. We discussed the diagnostic uncertainty of home [...] to call 911- verbalized understanding of instruction [email or web address] Not available 03/08/2024 00:03:32 07/27/2024 07/27/2024 Impression: [...] pill or obstructions, low suspicion for perforation, NATUROPATHIC DOCTOR, RPA, abscess, meningitis. Unclear if this is [...] of any new or worsening serious symptoms [email or web address] Not available 07/27/2024 13:02:59 Plan of Treatment Reminders Order Date Submit Date Provider Last Modified By Organization Details Last Modified Time Details Appointments None recorded. Lab rapid SARS CoV 2 Ag, QL IA, respiratory specimen [address], [id number] 5 14:30:50 rapid flu (A+B) [address], [phone] 5 14:28:58 rapid strep group A, throat [address], [id number] 5 14:32:11 BMP, serum or plasma 2023 024 [email or web address] 0 [facility], [address] [place] [address], [id number] 15:47:26 Referral None recorded. Procedures None recorded. Surgeries None recorded. Imaging None recorded. Medication Orders furosemide 10 mg/mL injection solution 2023 024 [email or web address] 0 [facility], [address] [place] [address], [id number], 4 15:47:26 potassium chloride ER 20 mEq tablet,exte nded release 2023 024 [email or web address] 0 [facility], [address] [place] [address], [id number], 4 15:47:26 azithromyci n 250 mg tablet 2022 023 [facility], [address] [place] [address], [id number], 3 12:11:17 Patient TargetsNo targets recorded. Patient [...] Name and Address Organization Details Recorded Time 09492 acetamino phen / hydrocodo ne medicatio n Not available Not available Not available 01/30/2024 45538 2 RxNorm Not Available [facility] - production 4 17:29:12 65115 hydrocodo ne Not available Not available Not available Not available 03/07/2024 5489 RxNorm Not Available [facility] - production 4 12:41:10 14028 tramadol medicatio n Not available Not available Not available 03/07/2024 71693 RxNorm Not Available [facility] - production 4 12:41:10 77890 lisinopri l medicatio n Not available Not available Not available 03/07/2024 46017 RxNorm Not Available [facility] - production 4 12:41:10 7573 albuterol medicatio n Not available Not available Not available 01/26/2024 435 RxNorm Not Available [facility] - production 4 03:38:23 Medications Name Sig Start Date Stop Date Status Note LastModified by Organization Details LastModified Time medbox status USE DIRECTED active Not Available Not Available No t Available pulse oximet airial [id number] USE TWICE DAILY DIRECTED active Not Available [...] Available Not Available No t Available FreeStyle [place] Lite kit USE DIRECTED active Not Available [...] Updated DateTime 5 97.5 [degF] 144.78 cm 62406.6 72 g 98 % 98 % 18 [...] /min 90 /min 123/98 mm[Hg] Not Available [facility] 4 12:44:04 Date Recorded Respiratory rate Heart rate Body height Oxygen saturation Oxygen saturation in Arterial blood by Pulse oximetry Body weight Body temperature Systolic And Diastolic Provider Name and Address Organization Details Last Updated DateTime 4 20 /min 97 /min 147.32 cm 99 % 99 % 52377.6 96 g 98.1 [degF] 116/77 mm[Hg] Not Available [facility] 4 19:02:23 Date Recorded Body weight Respiratory rate Heart rate Oxygen saturation Oxygen saturation in Arterial blood by Pulse oximetry Body height Body temperature Systolic And Diastolic Provider Name and Address Organization Details Last Updated DateTime 3 98422.5 36 g 18 /min 98 /min 97 % 97 % 147.32 cm 100.6 [degF] 141/53 mm[Hg] Not Available [facility] 3 20:20:15 Date Recorded Body height Body mass index (BMI) Body weight Provider Name and Address Organization Details Last Updated DateTime 03/07/2024 147.32 cm 26.8 kg/m2 95482.82 g Rosario Maguire MD [address] [place] [address],[address], [place], [place], [address] [place] [address] - [employer] 03/07/2024 15:26:21 Date Recorded Heart rate Body temperature Oxygen saturation Oxygen saturation in Arterial blood by Pulse oximetry Respiratory rate Systolic And Diastolic Provider Name and Address Organization Details Last Updated DateTime 4 96 /min 96.9 [degF] 98 % 98 % 18 /min 151/86 mm[Hg] Not Available [facility] 4 15:08:50 Social History None recorded. Functional [...] 4031 Valmeek Kudesia, MD [facility] [address] [place] [phone] 12/13/2021 20:36:20 12/20/2021 13:30:15 Cellulitis 800876758 L03.90 04467 Yelena Landaverde MD Main [facility] [address] [place] [phone] 02/23/2023 20:14:26 02/23/2023 23:04:54 Community acquired pneumonia 697066368 J18.9 Acute exac erbation of chronic obstructive pulmonary disease [id number] J44.1 00928 Winsome Díaz MD Main - [facility] [address] [place] [phone] 10/24/2023 12:43:55 07/14/2024 20:07:33 Cat bite 987264760 W55.01XA 34970 Yelena Landaverde MD Main - [facility] [address] [place] [phone] 01/30/2024 19:02:19 02/01/2024 00:29:21 Abdominal pain 03958116 R10.9 Suprapubic pain 70067835 6 R10.30 82777 Rosario Maguire MD Main - [facility] [address] [place] [phone] 03/07/2024 15:08:39 03/08/2024 17:25:37 Peripheral edema 965653681 R60.9 No clinical evidence of CHFBoth legs more edematous than usual, right foot is more swollen than left/no history of trauma but no cords /Homans negative so DVT is unlikely. No warmth or erythema to suggest cellulitis . Primary care team: If patient continues to have pain/sts she will need imaging studies. Patient is quite anemic- her [facility] notes from 02/20 through 02/22/2024 state [...] return to 2000 mg per 24 hours [address]3523 Deni Santos MD Main - [facility] [address] [place] [phone] 07/27/2024 12:53:57 07/27/2024 14:12:25 Pain in throat 201322504 J02.9 Health Concerns Section Related Observation LastModified by Organization Detai ls LastModified Time None Recorded Concern Status LastModified by Organization Details LastModified Time None Recorded Advance Directives Directive None Recorded Payers Insurance Date Sequence Insurance Name Policy Number Policy Sepulveda Covered Member ID Sepulveda Member ID Guarantor Name 02/18/2024 1 [facility] - DOS PRIOR TO 2022 - DUAL ELIGIBLE (MEDICARE REPLACEMENT/AD VANTAGE - HMO) Vikki Willis [id number] Vikki Willis 07/27/2024 1 [facility] - DOS ON OR AFTER 2022 - DUAL ELIGIBLE - RESIDENTIAL OPTIONS AND ONE CARE (MEDICARE REPLACEMENT/AD VANTAGE - HMO) Vikki Willis [id number] Vikki Willis Notes Date Note Type Note [...] CRC RN DID NOT NEED FURTHER INFO [facility] HPI: runny nose, clear mucous, x 1 mo. seen by PCP, given cough medicine with codeine. last appt w PCP was 1 wk ago. still having productive cough. started corcidin last week 5d ago. using combivent and flovent. no sore throat, and some chest congestion Yelena Landaverde MD [address] [place] [address],[address], [place], [phone], [employer] 02/23/2023 20:29:29 10/24/2023 text/html CRC Nurse Triage Notes (Elizabeth Grijalva): Reason For Request: Patient was bit on the arm by her Kitten. Chief Complaints: Injury PMH: COPD/Asthma, Diabetes, Hypertension Allergies: Albuterol Other Allergies: Vicodin Comments: E Learning Coordinator verified the member's name//address and phone number.Member [...] .................... .................... .................... .................... .................... .................... . Injection Molding Technician Note From Destini Castro: Pt with significant bite/scratch almendarez from kitten while both kittens in a fight. Kitten not yet fully vaccinated. A&ox3, vss, afebrile; one puncture site actively bleeding at present. C consulted, pt agreeable to go to ER by POV to have wounds irrigated and evaluated for stitches. Hand and wrist wrapped with clean dry dressing. Red flags reviewed. Injection Molding Technician Allergies: Albuterol .................... .................... .................... .................... .................... .................... .................... . Disposition: Fulfilled Winsome Díaz MD [address] [place] [address],[address], [place], [phone], [facility] 10/24/2023 13:07:25 01/30/2024 text/html CRC Nurse Triage Notes (Figueroa Sanders): Reason For Request: Pt reporting problem going number number 2 primarily but notes having problems going number 1 as well Chief Complaints: Abdominal pain PMH: COPD/Asthma, Hypertension, Anxiety Disorder, Chronic Kidney Disease, Depression, Epilepsy/Seizure Disorder, Diabetes Mellitus Type 2 Comments: E Learning Coordinator verified the Pt.'s name//address and phone number. [...] scene and unable to make contacted - [place] [employer] contact and will be dispatching a unit [facility] HPI: pain w trying to urinate, like she has to push. some constipation. .................... .................... .................... .................... .................... .................... .................... . Injection Molding Technician Note From Bob Ac: Pt chief complaint today of lower abdominal pain most closely related to the Pubic/perineal area. Pt states that she has been having this problem for 4 days prior to [facility] visit. Pt states she has been experiencing [...] Pt is CAOX4 with a GCS of 15[facility] Yelena Landaverde consultedPt expressed that it would be in her best interest to be seen at. Center of higher ability for more testing that [facility] cannot provide. Pt is also educated on the possible negative effects that can occur from waiting up t and including possible . Pt decides to wait till tomorrow for further diagnostics and treatmentPt is educated on red flag S&S and informed to call emergency services if any present. .................... .................... .................... .................... .................... .................... .................... . [facility] Consulted: Yelena Landaverde .................... .................... .................... .................... .................... .................... .................... . Disposition: Fulfilled Yelena Landaverde MD [address] [place] [address],[address] [facility], [place], [address], [employer] 01/30/2024 19:47:48 03/07/2024 text/html HPI: Call returned [...] come into walk in center. Agrees to [facility] for evaluation. Confirmed demographics and allergies. .................... .................... .................... .................... .................... .................... .................... . CRC Nurse Triage Notes (Treasure Childers): Chief Complaints: Swelling PMH: COPD/Asthma, Hypertension, Anxiety Disorder, Chronic Kidney Disease, Depression, Epilepsy/Seizure Disorder, Diabetes Mellitus Type 2, Asthma Comments: HPI reviewed Injection Molding Technician Organization [facility] Name: [facility] Address: [address] [place] [address], Forensic Engineer: Douglas Bucio MD CLIA No.: [id number] Injection Molding Technician POC Test Results from James [facility] (15:03:32) pH: 7.39 pH units pCO2: 32.2 mmHg pO2: 41.0 mmHg Na: 135 mmol/L K: 3.7 mmol/L iCa: 1.21 mmol/L Cl: 106 mmol/L TCO2: 19.2 mEq/L Hct: 28 % Hb: 9.5 g/dL Glu: 103 mg/dL Lac: 1.3 mmol/L Cr: 0.77 mg/dL BUN: 7 mg/dL A .................... .................... .................... .................... .................... .................... .................... . Injection Molding Technician Note From James Greene: This 63-year-old female [...] .................... .................... .................... .................... .................... .................... . [facility] Consulted: Rosario Maguire .................... .................... .................... .................... .................... .................... .................... . Disposition: Fulfilled SEGMD: Patient denies trauma/she denies history of gout. Although her right foot is more swollen than the left she reports her legs are much more edematous than baseline and they are painful. She was hospitalized at [facility] the week of 02/20 with a potassium of 2 diverticulitis and a UTI. Her hemoglobin was noted to go from 11 down to 8 during that visit with no history of GI bleeding. She also has a PMH including but not limited to: Asthma/COPD/HTN/CHF/ /CKD/DM 2/epilepsy/(iron deficiency anemia, hyponatremia and hypokalemia per PCP note 03/03/2024)./Anxiety and depression. Rosario Maguire MD [address] [place] [address],[address], [place], [phone], [facility] [employer] 03/08/2024 00:13:48 07/27/2024 text/html HPI: Member took her morning meds, then c/o sore throat and mild congestion.Member unsure if it was one of the medications that irritated her throat or caused some difficulty swallowing. c/o mild cough and sore throat. Member is denying any other complaints.: note- info provided by Paula from [facility] .................... .................... .................... .................... .................... .................... [...] signs of when to seek emergency care. Injection Molding Technician Organization Information for [facility] [employer] Legal Name: [employer]. Address: [address] [place] [address], Forensic Engineer: Bran De La Rosa MD CLIA No.: [id number] Injection Molding Technician POC Test Results from Kayleen Castellanos - [facility] Rapid COVID antigen (12:52:02) COVID: - Rapid influenza antigen (12:52:03) Flu: - Rapid strep test (12:52:27) Strep: - .................... .................... .................... .................... .................... .................... .................... . Injection Molding Technician Note From Kayleen Castellanos: Sent to a [...] covid/flu test: neg; Rapid strep test: neg; [facility] consulted and pt is advised to monitor symptoms. Red flags discussed. Pt has no further questions. [facility] Lab Orders: rapid SARS CoV 2 Ag, QL IA, respiratory specimen: Performed rapid flu (A+B): Performed rapid strep group A, throat: Performed .................... .................... .................... .................... .................... .................... .................... . [facility] Consulted: Deni Santos .................... .................... .................... .................... .................... .................... .................... . Disposition: Fulfilled Deni Santos MD [address] [facility],[address], [place], [address], [employer] 07/27/2024 13:51:25 OBGyn Episode No OBEpisode recorded.
--- OUTSIDE RECORDS SUMMARY | 2024-10-13 12:13 | XMS_ITS | Clinical Summary ---
Author Organization [facility] Address [address] [place] [address] DR TOL[address]INO LYNDONZITA [phone] Phone Care Team Providers Care Primary Grade Teacher Name Role Phone Inez Dewitt NP Primary Care Provider [phone] Allergies Active Allergy Reactions Criticality Noted Date [...] by mouth 2 Active UltiCare Mini Pen [place] 31G X 6 MM misc USE FOUR [...] Of [place] [address] [place] [address] Alan Nash MD from Last 3 Months [...] Visit [facility] [address] HERNANDEZ [address] [place] [phone] Alan Nash MD [address] [facility] [address] [place] [phone] Health Maintenance Due Date Last Done Comments [...] 07/01/2023, 11/07/2014, 07/27/2014, Additional history exists [place] [address] ([id number]) [place] [phone] [facility] ([id number]) Care Teams Primary Grade Teacher Relationship Specialty Start Date End Date Inez Dewitt NP [address] [place] [phone] PCP - General 04/09/20
[2024-10-13 13:32] LABS: Alanine Aminotransferase 12 U/L (0-31); Albumin Level 3.6 g/dL (3.5-5.0); Alkaline Phosphatase 121 U/L (39-117); Amylase 39 U/L (28-100); Aspartate Amino Transferase 18 U/L (5-31); Lipase 37 U/L (8-78); Total Protein 7.0 g/dL (6.5-8.0)
== END 2024-10-13 11:24 | disposition home or self-care (01) ==
LOC: HO.HHCL 11:23
PROVIDERS: PCP Nurse Practitioner Primary Care; Referring Provider Student in an Organized Health Care Education/Training Program; Visit Provider Nurse Practitioner
DX: R10.11 Right upper quadrant pain (principal)
CPT/HCPCS: 36415; 80076; 82150; 83690

== ENCOUNTER 2024-11-08 11:04 | Outpatient (AMB) | payer OTHER, SELFPAY ==
[2024-11-08 11:06] VITALS: BP 142/52; PULSE 87; O2SAT 98; BMI 26.6
--- NOTE | 2024-11-08 11:06 | MHC.OFFVIS ---
Vital Signs 11/08/24 11:06 Height 4 ft 9 in Weight 122 lb 12.76 oz BMI 26.6 BP 142/52 H Blood Pressure Location Rt brachial Position Sitting Pulse 87 Pulse Source Pulse Oximeter Pulse Oximetry (%) 98 Oxygen Delivery Method Room Air Intake Visit Reasons: Hyperthyroidism Intake Note: Patient present today for Hyperthyroidism office visit. Counseling Department Chair Required: No Accompanied by: Self / Same As Patient Allergies avocado Allergy (Intermediate, Verified 11/08/24 11:10) nephropathy environmental allergies Allergy (Mild, Verified 11/08/24 11:10) hayfever hydrocodone (From Vicodin) Allergy (Mild, Verified 11/08/24 11:10) ITCHING SHANAE Inhibitors (SHANAE INHIBITORS) Allergy (Unknown, Verified 11/08/24 11:10) UNKNOWN lysol wipes Allergy (Mild, Uncoded 11/08/24 11:10) Hives Medication List - Last Reconciled 11/08/24 by Eunice Jade MD acetaminophen 1,000 mg PO Q6H PRN albuterol sulfate 90 mcg/actuation 2 puffs PO QID PRN atorvastatin 1 tab PO BEDTIME calcium carbonate-vitamin D3 600 mg-10 mcg (400 unit) 1 tab PO BID cefuroxime axetil 500 mg PO BID cetirizine 1 tab PO QAM ferrous sulfate 325 mg PO QAM fluticasone propionate 50 mcg/actuation 2 sprays intranasal DAILY fluticasone propionate 110 mcg/actuation 2 puffs inhalation BID PRN folic acid 1 mg PO DAILY imipramine HCl 50 mg (2 x 25 mg) PO BEDTIME levetiracetam 500 mg PO BID methimazole 10 mg PO DAILY metoprolol succinate ER 50 mg PO DAILY omeprazole 20 mg PO DAILY@0630 oxcarbazepine 1 tab PO BID ropinirole 1 mg PO BID PRN sertraline 50 mg PO DAILY sitagliptin phosphate (Januvia) 50 mg PO DAILY topiramate 100 mg PO BID vancomycin 125 mg PO Q6H HPI Comments Details: 64-year-old female coming in today for follow up of hyperthyroidism. 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 Diagnosed with hyperthyroidism in July 2024 when TSH was suppressed at less than 0.01 with a elevated free T4 1.89 these are labs from 08/02/2024. Previously she has had suppressed TSH at least since 2022 with normal free T4 levels consistent with subclinical hyperthyroidism that has now progressed to overt hyperthyroidism. Labs from December 2023 showed positive TSH receptor antibody 3.05 consistent with Graves disease. Methimazole 5 mg daily started July 2024 Taking it every morning She has been on metoprolol 25 mg extended release daily for hypertension for some years. Reports palpitations since the past 3-4 months. No tremors. Denies diarrhea. Denies heat intolerance and diaphoresis. No skin hair changes. some intermittent anxiety. Lost 40 lb s over the past year , and 10 lbs in the last 6 months. Patient currently denies changes in appearance of eyes or vision changes. ? Patient denies any difficulty swallowing, pain on swallowing or voice changes or difficulty breathing. Patient denies any history of childhood neck radiation. Denies having ever used lithium, amiodarone or biotin supplements. Patient denies any family history of thyroid cancer or thyroid disease. Smokes 4-5 cigarettes a day Interval history 09/20/2024: TSH less than 0.01, free T4 1.47, free T3 elevated at 7.6, total T3 elevated at 245, TSI antibodies elevated at 417, TPO antibodies elevated at 321 , was reporting some palpitations, and was tachycardic metoprolol was increased to 50 mg daily 09/26/2024: Methimazole increased from 5 mg daily to 10 mg daily Patient was supposed to do blood work prior to this appointment, blood work not done No tremors, no diarrhea, no palpitations.Weight going up. Physical exam General: sitting comfortably in no acute distress HEENT: normocephalic/atraumatic, EOM intact, moist oral mucosa Neck: supple, symmetrical, no thyromegaly Cardiac: normal heart sounds Pulm: normal breath sounds B/L, no added breath sounds Abd: not distended, no tenderness Extremities: no edema, no signs of myxedema, mild tremor noted Neuro: AAO x3, Speech: normal, no facial droop, moving all 4 extremities Laboratory Tests 02/02/23 12/31/23 01/04/24 15:30 11:11 12:06 WBC RBC Hgb Hct Neut % (Auto) Absolute Neuts (auto) Total Bilirubin Direct Bilirubin AST ALT Alkaline Phosphatase TSH < 0.01 L < 0.01 L < 0.01 L Free T4 1.05 1.14 1.04 TSH Receptor Ab 3.05 H 02/21/24 08/02/24 08/12/24 05:25 16:31 17:15 WBC 5.8 RBC 3.57 L Hgb 9.6 L Hct 30.4 L Neut % (Auto) 39.2 L Absolute Neuts (auto) 2.3 Total Bilirubin 0.4 Direct Bilirubin 0.2 AST 26 ALT 18 Alkaline Phosphatase 95 TSH 0.01 L < 0.01 L Free T4 1.29 1.89 H TSH Receptor Ab Laboratory Tests 01/04/24 08/12/24 09/20/24 12:06 17:15 12:03 WBC 5.8 Absolute Neuts (auto) 2.3 AST ALT Alkaline Phosphatase TSH < 0.01 L Free T4 1.47 Free T3 7.6 H Total T3 245 H Thyroid Stim Immunoglob 417 H TSH Receptor Ab 3.05 H Thyroid Peroxidase Ab 321 H 10/13/24 11:27 WBC Absolute Neuts (auto) AST 18 ALT 12 Alkaline Phosphatase 121 H TSH Free T4 Free T3 Total T3 Thyroid Stim Immunoglob TSH Receptor Ab Thyroid Peroxidase Ab [facility] Medical History (Updated 10/06/24 @ 08:19 by Kelsey Whitfield RN) Migraines Graves' disease Cat bite of forearm Colitis Diverticulitis Seizures Syncope History of TIA (transient ischemic attack) CHF (congestive heart failure) Essential hypertension Hyperlipidemia Type 2 diabetes mellitus with chronic kidney disease Chronic kidney disease, stage 3 Anemia COPD (chronic obstructive pulmonary disease) Asthma JANET (obstructive sleep apnea) Nicotine dependence, cigarettes, uncomplicated Restless leg syndrome Obesity IBS (irritable bowel syndrome) Osteoarthritis Surgical History History of incision and drainage History of appendectomy History of cholecystectomy History of esophagogastroduodenoscopy (EGD) History of colonoscopy History of total left knee replacement (TKR) History of arthroscopy of left knee History of arthroscopy of right knee History of elbow surgery History of surgery on wrist History of carpal tunnel release of both wrists History of lumpectomy of right breast Family History Father Hx of gout Diabetes Mother Diabetes Daughter Pre-diabetes Brother Cancer Social History Household Members: None Housing: Apartment Do you presently have visiting nurse or other home services: Yes Alcohol intake: never Patient Tobacco Use Status: Current everyday Tobacco user Tobacco use type: Cigarette Cigarette Packs Per Day: 1 Cigarettes Per Day: 20.0 Years Smoked: onset 16yo, 3ppd x 47yrs, now 2ppd, >100pyh e-Cigarette/Vaping Use: Never Used Second Hand Smoke Exposure: No Advance Directives Date on File: 02/18/21 service: No Current occupational status: disabled Current occupation: left hand dominant Physical Exam Vital Signs: Last Vital Signs Pulse 87 11/08/24 11:06 BP 142/52 H 11/08/24 11:06 Pulse Ox 98 11/08/24 11:06 Oxygen Delivery Method Room Air 11/08/24 11:06 BMI result Body Mass Index 26.6 Assessment & Plan Assessment & Plan (1) Hyperthyroidism: Code(s): E05.90 - Thyrotoxicosis, unspecified without thyrotoxic crisis or storm Category: Medical Plan: 64-year-old female here today for follow up of hyperthyroidism. Diagnosed in July 2024, with labs showing suppressed TSH less than 0.01, free T4 elevated at 1.89. TSH receptor antibodies elevated from December 2023 consistent with Graves disease. Before that she has had subclinical hyperthyroidism for at least the past 3 years which has now progressed to overt hyperthyroidism. She was started on methimazole 5 mg daily by primary care provider in July 2024. She endorses adherence to the medication. 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 Interestingly she does not have a goiter. She also does not have any signs for Graves orbitopathy. Labs done 09/21/2024 showed total T3 was still quite elevated with suppressed TSH. We went about her methimazole to 10 mg daily. She is taking this now. She was supposed to do repeat blood work prior to this appointment but can not done. Discussed with patient that about 30% of the patients have remission after 12-18 months of treatment with methimazole. More recent data has shown longer periods of treatment resulting in better remission rates as well. At this time we will plan to continue treatment with methimazole and continue adjusting the dose as needed. In the long run if she does not have remission, we also briefly discussed definitive therapy options of radioactive iodine ablation and total thyroidectomy and the need for requiring long-term levothyroxine therapy after those procedures. The following were discussed as potential side effects of methimazole: - Serious skin rashes - nausea, vomiting, or severe hepatic injury - Agranulocytosis: a rare side effect of methimazole involves a severe decrease in the production of white blood cells. This condition is extremely serious, but affects only one out of every 200 to 500 people who take an antithyroid drug. Agranulocytosis more commonly occurs within the first three months of starting treatment with an antithyroid drug, but can occur at any time. If patient develops a fever (temperature above 100.5F), or other signs or symptoms of infection, she should stop taking the tapazole and immediately have a complete blood count (CBC) done. Serious and potentially life threatening infections, or even , can occur before agranulocytosis resolves. However, once the antithyroid drug is stopped, agranulocytosis usually resolves within a week. - Arthralgias, myalgias - Renal: Nephritis - Fever Patient will stop medication and call our office if these occur. Plan: -continue methimazole 10 mg daily -ordered TSH, free T4, total T3, free T3, to be done now -we will reach out with the results -follow up in 3 months -continue metoprolol to 50 mg extended release daily (2) Graves' disease: Code(s): E05.00 - Thyrotoxicosis with diffuse goiter without thyrotoxic crisis or storm Category: Medical Plan: See above Plan See above Patient Instructions: Do blood work today we will reach out with results and let you know if medication dose needs to be changes Please bring pill bottles to next visit Coding Level of Care Code Est Pt Level 3 (20160) Diagnoses Hyperthyroidism E05.90 Graves' disease E05.00
--- OUTSIDE RECORDS SUMMARY | 2024-11-08 12:13 | XMS_ITS | Clinical Summary ---
Author Organization [facility] Address [address] [place] [address] [address] [address] Phone Care Team Providers Care Speech Therapist Early Intervention Name Role Phone Inez Dewitt NP Primary Care Provider [phone] Allergies Active Allergy Reactions Criticality Noted Date [...] by mouth 2 Active UltiCare Mini Pen [place] 31G X 6 MM misc USE FOUR [...] Of [address] [place] [address] Alan Nash MD from Last 3 Months [...] Care Team (Late st Contact Info) Description 12/26/2024 2:15 PM EDT Office Visit [facility] [address] [place] [address] Alan Nash MD [address] [facility] [address] [place] [phone] Health Maintenance Due Date Last Done Comments Breast Cancer Screening 1960 Colorectal Cancer Screening: Annual FOBT 2009 Colorectal Cancer Screening: Colonoscopy 2009 Colorectal Cancer Screening: Sigmoidoscopy 2009 Diabetes: Ophthalmology Exam 04/29/2020 Diabetes: Pedal Pulse Checked 04/29/2020 Diabetes: Sensory Foot Exam 04/29/2020 Diabetes: Visual Foot Exam 04/29/2020 Influenza Vaccine (#1) 2024 3, 03/04/2021, 02/07/2020, Additional history exists Diabetes: Hemoglobin A1C 01/25/2025 025, 04/22/2024, 12/31/2023, Additional history exists Hepatitis B Vaccine Aged Out 08/17/2017, 02/03/2017, 09/24/2016, Additional history exists No longer eligible based on patient's age to complete this topic Pneumococcal Vaccine: 50+ Years Completed 07/01/2023, 11/07/2014, 07/27/2014, Additional history exists Pneumococcal Vaccine: Peds (0 to 5 Years) and At-Risk Patients (6 to 49 Years) Discontinued 07/01/2023, 11/07/2014, 07/27/2014, Additional history [place] [address] ([id number]) [place] [id number] [facility] ([id number]) Care Teams Speech Therapist Early Intervention Relationship Specialty Start Date End Date Inez Dewitt NP [address] [place] [address] PCP - General 04/09/20
--- OUTSIDE RECORDS SUMMARY | 2024-11-08 12:13 | XMS_ITS | Encounter Summary ---
Author Organization [facility] Address [address] [facility] [address] [place] [address] Phone Care Team Providers Care Yacht Master Name Role Phone Unavailable Primary Care Provider Unavailabl e Encounter Details Date Type Department Care Team (Latest Contact Info) Description 06/25/2018 Ancillary Orders [facility] [address] [place] [address] [place] [address] Nba Bernstein, [address] [address] Chest pain, unspecified type Social History Tobacco Use Types Packs/Day Years Used Date Smoking Tobacco: Never Assessed Comments Unknown Sex and Gender Information Value Date Recorded Sex Assigned at Not on file Legal Sex Female 10:34 PM EDT Gender Identity Not on file Sexual Orientation Not on file documented as of this encounter Plan of Treatment Not on file documented as of this encounter Results * Holter Monitor 24 Hours (06/25/2018 11:54 AM EDT) Anatomical Region Laterality Modality Heart Other Narrative 06/25/2018 4:34 PM EDT 24-hour monitor: Baseline rhythm is sinus with a minimum heart rate of 68 maximum 126 average 84 bpm. About 25% of the recording is classified as noise. There are occasional PACs and PVCs present. There are brief runs of atrial tachycardia present, maximum duration 4 beats. There is no diary submitted. There are 3 patient event markers present. Patient event markers occurred during sinus rhythm. Impression: Normal 24-hour monitor. No symptoms reported. Patient event markers during sinus rhythm. Procedure Note Gomez Baxter MD - 06/25/2018 24-hour monitor: Baseline rhythm is sinus with a minimum heart rate of 68maximum 126 average 84 bpm. About 25% of the recording is classified asnoise. There are occasional PACs and PVCs present. There are brief runsof atrial tachycardia present, maximum duration 4 beats. There is nodiary submitted. There are 3 patient event markers present. Patientevent markers occurred during sinus rhythm. Impression: Normal 24-hour monitor. No symptoms reported. Patient eventmarkers during sinus rhythm. Nba Bernstein DO [facility] ORDERABLE S Final Result documented in this encounter Visit Diagnoses Diagnosis Chest pain, unspecified type Chest pain, unspecified type documented in this encounter Additional Source Comments The information contained in this document represents components of the legal health record. It is not the complete legal health record.[facility]
--- OUTSIDE RECORDS SUMMARY | 2024-11-08 12:13 | XMS_ITS | Patient Health Record ---
Author Organization [facility] Address [address] [place] [address] Care Team Providers Care Trombone Slide Assembler Name Role Phone Jose Cruz Unavailable [phone] Reason For Referral No Information Plan Of Treatment No Information
--- OUTSIDE RECORDS SUMMARY | 2024-11-08 12:13 | XMS_ITS | Clinical Summary ---
Author Organization [facility] Address [address] [place] [address] Phone Care Team Providers Care Service Promoter Salesperson Name Role Phone April Dave NP Primary Care Provider [phone] Social History Tobacco Use Types Packs/Day Years Used Date Smoking Tobacco: Never Assessed Comments Unknown Sex and Gender Information Value Date Recorded Sex Assigned at Not on file Legal Sex Female 9:35 AM EST Gender Identity Not on file Sexual Orientation Not on file Plan of Treatment Upcoming Encounters Date Type Department Care Team ([facility] st Contact Info) Description 12/19/2024 1:15 PM EDT Office Visit Orthopedic Surgery - [place] [address] [address] Terell Nicholas, [place] [address] [address] Health Maintenance Due Date Last Done Comments [...] patient's age to complete this topic Insurance [facility] MEDICARE Member Subscriber Plan / Payer (Ef fective 2016-Present) Name:JOSE WILLIS Relation to Subscriber:Self Name:Jose Willis Payer ID:[id number] Group ID:[id number] Type:Not on file Address: [place] [address] [place] [id number] Care Teams Service Promoter Salesperson Relationship Specialty Start Date End Date April aDve NP [address] [place] [phone] PCP - General 01/05/24
== END 2024-11-08 11:40 | disposition home or self-care (01) ==
LOC: HO.ENCR 11:05
PROVIDERS: PCP Nurse Practitioner Primary Care; Visit Provider Student in an Organized Health Care Education/Training Program
DX: E05.90 Thyrotoxicosis, unspecified without thyrotoxic crisis or storm (principal); E05.00 Thyrotoxicosis with diffuse goiter without thyrotoxic crisis or storm
CPT/HCPCS: 99213

== ENCOUNTER → 2024-11-08 11:04 | Outpatient (BNVA) | payer OTHER, SELFPAY | PROVIDERS: PCP Nurse Practitioner Primary Care; Visit Provider Student in an Organized Health Care Education/Training Program | DX: E05.00 Thyrotoxicosis with diffuse goiter without thyrotoxic crisis or storm (principal) | CPT/HCPCS: 99212 ==

== ENCOUNTER 2024-11-08 11:45 | Outpatient (REF) | payer OTHER, SELFPAY ==
[2024-11-08 14:01] LABS: Free T4 (Free Thyroxine) 1.29 ng/dL (0.71-1.85); Thyroid Stimulating Hormone < 0.01 uIU/mL (0.32-4.0)
== END 2024-11-08 11:46 | disposition home or self-care (01) ==
LOC: HO.10HDL 11:45
PROVIDERS: Visit Provider Student in an Organized Health Care Education/Training Program
DX: E05.00 Thyrotoxicosis with diffuse goiter without thyrotoxic crisis or storm (principal)
CPT/HCPCS: 36415; 84439; 84443; 84480; 84481

== ENCOUNTER 2024-11-10 17:36 | Outpatient (REF) | payer OTHER, SELFPAY ==
--- OUTSIDE RECORDS SUMMARY | 2024-11-10 17:40 | XMS_ITS | Clinical Summary ---
Author Organization [facility] Address [address] [place] [address] [address] L[address] [address] Phone Care Team Providers Care Paper Testing Supervisor Name Role Phone Inez Dewitt NP Primary Care Provider [phone] Allergies Active Allergy Reactions Criticality Noted Date [...] by mouth 2 Active UltiCare Mini Pen [place] 31G X 6 MM misc USE FOUR [...] Of [address] [place] [address] Alan Nash MD from Last 3 Months [...] Visit [facility] [address] [place] [address] Alan Nash MD [address] [facility] [address] [place] [phone] Health Maintenance Due Date Last Done Comments [...] 07/01/2023, 11/07/2014, 07/27/2014, Additional history exists [place] [address] ([id number]) [place] [id number] [facility] ([id number]) Care Teams Paper Testing Supervisor Relationship Specialty Start Date End Date Inez Dewitt NP [address] [place] [address] PCP - General 04/09/20
--- OUTSIDE RECORDS SUMMARY | 2024-11-10 17:40 | XMS_ITS | Clinical Summary ---
Author Organization [facility] Address [address] [place] [address] Phone Care Team Providers Care Buttonhole Tacker Name Role Phone April Dave NP Primary Care Provider [phone] Social History Tobacco Use Types Packs/Day Years Used Date Smoking Tobacco: Never Assessed Comments Unknown Sex and Gender Information Value Date Recorded Sex Assigned at Not on file Legal Sex Female 9:35 AM EST Gender Identity Not on file Sexual Orientation Not on file Plan of Treatment Upcoming Encounters Date Type Department Care Team ([facility] st Contact Info) Description 12/19/2024 1:15 PM EDT Office Visit Orthopedic Surgery - [place] [address] [address] Terell Nicholas, [place] [address] [address] Health Maintenance Due Date Last Done Comments [...] patient's age to complete this topic Insurance [facility] MEDICARE Member Subscriber Plan / Payer (Ef fective 2016-Present) Name:JOSE WILLIS Relation to Subscriber:Self Name:Jose Willis Payer ID:[id number] Group ID:[id number] Type:Not on file Address: [place] [address] [place] [id number] Care Teams Buttonhole Tacker Relationship Specialty Start Date End Date April Dave NP [address] [place] [phone] PCP - General 01/05/24
--- OUTSIDE RECORDS SUMMARY | 2024-11-10 17:40 | XMS_ITS | Encounter Summary ---
Author Organization [facility] Address [address] [facility] 7t [place] [address] Care Team Providers Care Ice Cream Freezer Assistant Name Role Phone April Dave Primary Care Provider [phone] Eduarda Krishnan MD Unavailable [phone] Unavailable Reason for Visit * Reason Onset Date Comments Hospital Follow-up 12/16/2023 Encounter Details Date Type Department Care Team (Late st Contact Info) Description 12/16/2023 Telephone [facility] [address] [place] [address] April Dave ANP [address] [place] [address] Hospital Follow-up Social History Tobacco Use Types [...] from pt requesting a HDF appt. Hospital: [facility] Date of admission: 12/09/23 Discharge date: 12/11/23 Diagnosed: Hand Surgery documented in this encounter Plan of Treatment Not on file documented as of this encounter Visit Diagnoses Not on filedocumented in this encounter Care Teams Ice Cream Freezer Assistant Relationship Specialty Start Date End Date April Dave ANP [address] [place] [address] PCP - General Family Medicine 11/16/20 Eduarda Krishnan MD [address] [place] [address] Hematology and Oncology 06/01/24June [address] [place] [address] 3rd [place] [address] 06/01/24 documented as of this encounter
--- OUTSIDE RECORDS SUMMARY | 2024-11-10 17:40 | XMS_ITS | Encounter Summary ---
Author Organization [facility] Address [address] [facility] [address] [place] [address] Phone Care Team Providers Care Yard Motor Operator Name Role Phone Unavailable Primary Care Provider Unavailabl e Encounter Details Date Type Department Care Team (Latest Contact Info) Description 06/25/2018 Ancillary Orders [facility] [address] [place] [address] [place] [address] Nba Bernstein, [address] [address] Chest pain, unspecified type Social History Tobacco [...] It is not the complete legal health record.[facility]
[2024-11-11 04:21] LABS: Bacterial Vaginosis PCR POSITIVE (Negative); Candida Group PCR NOT DETECTED (Not Detect); Candida glab krusei PCR NOT DETECTED (Not Detect); Trichomonas vaginalis PCR NOT DETECTED (Not Detect)
[2024-11-11 04:52] LABS: CT PCR DETECTED (Not Detect.); NG PCR NOT DETECTED (Not Detect.)
== END 2024-11-10 17:37 | disposition home or self-care (01) ==
LOC: HO.HHCLNP 17:36
PROVIDERS: Visit Provider Family Medicine
DX: Z20.2 Contact with and (suspected) exposure to infections with a predominantly sexual mode of transmission (principal); N94.9 Unspecified condition associated with female genital organs and menstrual cycle
CPT/HCPCS: 81515; 87086; 87491; 87591

== ENCOUNTER 2024-11-14 13:30 | Outpatient (RCR) | payer OTHER, SELFPAY ==
--- NOTE | 2024-10-10 10:11 | MHC.OT.EP ---
[address] [phone] Occupational Therapy Plan of Care Patient Name: Vikki Willis Date of Evaluation: 10/10/24 Diagnosis: Right EPL rupture s/p cat bite Pain Location: No pain reported in thumb Assessment: 64 yo female presents to OT w/ right EPL rupture s/p cat bite Nov 2023 requiring I&D and ortho management. She was seen in OT June 2023 and made custom orthosis, but she has not been wearing it. She was seen by Dr Moreno again and has been considering tendon transfer, but at this time OT re-ordered for continued splint needs and stretching to prevent contracture. Today we have fit her with a new hand based thumb gutter ext orthosis. She has full range of wrist and digits and will wear for 6-8 hours and continue passive stretches and exercises as part of HEP. We will continue with follow ups for further splint adjustments (currently w/ slight flex at MP for fit and comfort and will cont to streth into ext on next visit) and to review soft tissue and exercises. Frequency and Duration: The patient will be seen 1x/wk for 4 weeks Short Term Goals: Adjustments to orthosis for thumb MP ext Ind w/ 6-8 hr/day wear schedule Ind w/ self massage/STM Ind w/ self passive stretching to thumb Treatment Plan: Therapeutic Exercise Therapeutic Activity Home Exercise Program Splinting Patient Education ADL Training MHP Joint Mobilization Soft Tissue Mobilization Kinesiotaping Electronically Signed By: Mary Anne Hunt OTR/L CHT Please Sign and return to therapist. Thank you once again for your referral.
--- NOTE | 2024-12-23 07:36 | MHC.OT.DC ---
[facility] Office [address] [phone] F: [phone] F: [phone] Occupational Therapy Discharge Note Patient Name: Vikki Willis Provider: Lupe Moreno Diagnosis: Right EPL rupture s/p cat bite Date of Evaluation: 10/10/24 Date of Discharge: 12/23/24 Treatments to Date: 3 Discharge Status: Independent with HEP Discharge Summary: Vikki is a 64 yo female w/ hx of EPL rupture. She was seen in OT for splinting needs to prevent flexion contracture. She initially had poor carry over with orthosis wear, but with follow-up visits, orthosis was refit and patient reported more comfort and improved consistency of wear. She has not been seen in over a month, but she has been educated on orthosis wear and stretches. No further OT needed at this time. Electronically Signed By: Mary Anne Hunt OTR/L CHT Reviewed/agree with student documentation: Therapist: Please Sign and return to therapist, thank you for your referral.
== END 2024-12-23 07:36 | disposition home or self-care (01) ==
LOC: HO.OT 13:30
PROVIDERS: PCP Nurse Practitioner Primary Care; Visit Provider Orthopaedic Surgery
DX: S66.811D Strain of other specified muscles, fascia and tendons at wrist and hand level, right hand, subsequent encounter (principal)
CPT/HCPCS: 29130; 97110; 97140; 97165; 97760

== ENCOUNTER 2024-12-20 10:20 | Outpatient (REF) | payer OTHER, SELFPAY ==
--- OUTSIDE RECORDS SUMMARY | 2024-12-20 09:20 | XMS_ITS | Encounter Summary ---
Author Organization [employer] Address [address] [facility] [address] [place] [address] Care Team Providers Care Lace Roller Name Role Phone April Dave AARON Primary Care Provider [phone] Eduarda Krishnan MD Unavailable [phone] June Unavailable Reason for Visit * Reason Comments Vomiting Encounter Details Date Type Department Care Team ([facility] st Contact Info) Description 12/20/2024 9:20 AM EDT Office Visit [facility] [address] [place] [address] Vomiting in adult Social History Tobacco Use Types Packs/Day Years [...] Sign Reading Time Taken Comments Blood Pressure 146/66 12/20/2024 9:12 AM EDT Pulse 100 12/20/2024 9:12 AM EDT Temperature 36.6 C (97.9 F) 12/20/2024 9:12 AM EDT Respiratory Rate 18 12/20/2024 9:12 AM EDT Oxygen Saturation - - Inhaled Oxygen Concentration - - Weight 53.1 kg (117 lb) 12/20/2024 9:12 AM EDT Height - - Body Mass Index 23.63 10/25/2024 9:12 AM EDT documented in this encounter Plan of Treatment Upcoming Encounters Date Type Department Care Team (Late st Contact Info) Description 01/31/2025 11:00 AM EST Office Visit [facility] [address] [place] [address] April Dave, ANP [address] [place] [address] Scheduled Orders Name Type Priority Associated Diagnoses Orde r Schedule Comprehensive Metabolic Panel Lab Routine Vomiting in adult Expected: 12/20/2024 (Approximate), Expires: 12/20/2025 Lipase Lab Routine Vomiting in adult Expected: 12/20/2024, Expires: 12/20/2025 Helicobacter pylori Antigen, EIA, Stool Lab Routine Vomiting in adult Expected: 12/20/2024 (Approximate), Expires: 12/20/2025 Culture, Urine, Routine Microbiology Routine Vomiting in adult Ordered: 12/20/2024 documented as of this encounter Procedures Procedure Name Priority Date/Time Associated Diagnosis Comments POCT INFLUENZA B (ID NOW RAPID MOLECULAR) Routine 12/20/2024 9:26 AM EDT Vomiting in adult POCT INFLUENZA A (ID NOW RAPID MOLECULAR) Routine 12/20/2024 9:26 AM EDT Vomiting in adult POCT RAPID COVID ANTIGEN Routine 12/20/2024 9:26 AM EDT Vomiting in adult documented in this encounter Results * POCT Rapid COVID Ag (12/20/2024 9:26 AM EDT) Rapid COVID Ag Negative Swab 12/20/2024 9:26 AM EDT us James Farris MD POINT OF CARE TEST ENTER/EDIT OR DERABLES Final Result * Influenza B (ID NOW Rapid Molecular) (12/20/2024 9:26 AM EDT) [facility] Influenza B Negative Negative, Indeterminate [facility] Swab 12/20/2024 9:26 AM EDT us James Farris MD POINT OF CARE TEST ENTER/EDIT OR DERABLES Final Result Performing Organization Address City/[facility]/ZIP Co de Phone Number [facility] [address] [place] [phone] * Influenza A (ID NOW Rapid Molecular) (12/20/2024 9:26 AM EDT) [facility] Influenza A Negative Negative, Indeterminate [facility] Swab 12/20/2024 9:26 AM EDT us James Farris MD POINT OF CARE TEST ENTER/EDIT OR DERABLES Final Result Performing Organization Address City/[facility]/ZIP Co de Phone Number [facility] [address] [place] [phone] documented in this encounter Visit Diagnoses Diagnosis Vomiting in adult documented in this encounter Additional Health Concerns Assessment Noted Time PHQ-9 Depression Total Score: 1 12/31/19 24 10:03 AM EDT documented as of this encounter Care Teams Lace Roller Relationship Specialty Start Date End Date April Dave ANP [address] [place] [address] PCP - General Family Medicine 11/16/20 Eduarda Krishnan MD [address] [place] [address] Hematology and Oncology 06/01/24RicoJune [address] [place] [address] 3rd [place] [address] 06/01/24 documented as of this encounter
[2024-12-20 11:41] LABS: Hematocrit 27.3 % (37.0-47.0); Hemoglobin 8.7 g/dl (12.0-16.0)
--- OUTSIDE RECORDS SUMMARY | 2024-12-20 12:33 | XMS_ITS | Patient Health Record ---
Author Organization [facility] Address [address] [place] [id number] Care Team Providers Care Business And Marketing Teacher Name Role Phone Jose Cruz Unavailable [phone] Reason For Referral No Information Plan Of Treatment No Information
--- OUTSIDE RECORDS SUMMARY | 2024-12-20 12:33 | XMS_ITS | Encounter Summary ---
Author Organization [employer] Address [address] [facility] [address] [place] [address] Care Team Providers Care Jet Inspector Name Role Phone April Dave Primary Care Provider [phone] Eduarda Krishnan MD Unavailable June Unavailable Reason for Visit * Reason Onset Date Comments Hospital Follow-up 12/16/2023 Encounter Details Date Type Department Care Team (Late st Contact Info) Description 12/16/2023 Telephone [facility] [address] [place] [address] April Dave ANP [address] [place] [address] Hospital Follow-up Social History Tobacco Use Types [...] from pt requesting a HDF appt. Hospital: [facility] Date of admission: 12/09/23 Discharge date: 12/11/23 Diagnosed: Hand Surgery documented in this encounter Plan of Treatment Upcoming Encounters Date Type Department Care Team (Late st Contact Info) Description 01/31/2025 11:00 AM EST Office Visit [facility] [address] [place] [address] April Dave ANP [address] [place] [address] documented as of this encounter Visit Diagnoses Not on filedocumented in this encounter Care Teams Jet Inspector Relationship Specialty Start Date End Date April Dave ANP [address] [place] [address] PCP - General Family Medicine 11/16/20 Eduarda Krishnan MD [address] [place] [phone] Hematology and Oncology 06/01/[address]rd [place] [address] 06/01/24 documented as of this encounter
--- OUTSIDE RECORDS SUMMARY | 2024-12-20 12:34 | XMS_ITS | Encounter Summary ---
Author Organization [employer] Address [address] [facility] [address] [place] [address] Care Team Providers Care Machine Printer Hose Name Role Phone April Dave Primary Care Provider [phone] Eduarda Krishnan MD Unavailable [phone] June Unavailable Encounter Details Date Type Department Care Team (Late st Contact Info) Description 10/09/2023 Orders Only [facility] [address] [place] [address] ProviderRubina MD Social History Tobacco Use Types [...] Description 01/31/2025 11:00 AM EST Office Visit [facility] [address] [place] [address] April Dave ANP [address] [place] [address] documented as of this encounter Procedures Procedure Name Priority Date/Time Associated Diagnosis Comments HM COLONOSCOPY Routine 09/05/2021 11:04 AM EDT documented in this encounter Results * Hm Colonoscopy (09/05/2021 11:04 AM EDT) us Historical Provider HEALTH MAINTENANCE Final Result documented in this encounter Visit Diagnoses Not on filedocumented in this encounter Care Teams Machine Printer Hose Relationship Specialty Start Date End Date April Dave ANP [address] [place] [address] PCP - General Family Medicine 11/16/20 Eduarda Krishnan MD [address] [place] [address] Hematology and Oncology 06/01/24June [address]rd [place] [address] 06/01/24 documented as of this encounter
--- OUTSIDE RECORDS SUMMARY | 2024-12-20 12:34 | XMS_ITS | Encounter Summary ---
Author Organization [facility] Address [address] [facility] [address] [place] [phone] Phone Care Team Providers Care Administrative Assistant Front Desk Name Role Phone Unavailable Primary Care Provider Unavailabl e Encounter Details Date Type Department Care Team (Latest Contact Info) Description 06/25/2018 Ancillary Orders [facility] [address] [place] [address] [place] [address] Nba Bernstein, [address] [address] Chest pain, unspecified type Social History Tobacco [...] It is not the complete legal health record.[facility]
--- OUTSIDE RECORDS SUMMARY | 2024-12-20 12:34 | XMS_ITS | Clinical Summary ---
Author Organization [employer] Address [address] [facility] [address] [place] [address] Care Team Providers Care Revenue Enforcement Collection Agent Name Role Phone April Dave AARON Primary Care Provider [phone] Eduarda Krishnan MD Unavailable [phone] June Unavailable Allergies Active Allergy Reactions [...] tablets by mouth at bedtime. 021 Active Blood Glucose Monitoring Suppl (FreeStyle Lite) w/Device kitIndications: Type 2 diabetes mellitus with stage 3 chronic kidney disease, with long-term current use of insulin, unspecified whether stage 3a or 3b CKD ([facility]) 1 kit See administration instructions. Use for blood sugars as needed 1 kit 022 Active furosemide (Lasix) 40 MG tablet TAKE 1 AND 1/2 TABLETS BY MOUTH IN THE MORNING Active TRUEplus Lancets 33G misc TEST BLOOD SUGAR 3 TIMES A DAY Active omeprazole (PriLOSEC) [address] capsule TAKE 1 CAPSULE BY MOUTH EVERY MORNING 022 Active Blood Pressure kitIndications: Essential hypertension,Be nign hypertensive renal disease 1 kit in the morning. 1 kit 022 Active ketoconazole (Nizoral) 2 % shampooIndicati ons:Dandruff [...] TIMES DAILY NEEDED 100 each 024 Active folic acid (Folvite) 1 MG tabletIndicatio ns:Low folic acid TAKE 1 TABLET BY MOUTH EVERY MORNING 90 tablet 3 024 Active bacitracin-poly myxin b (Polysporin) ointment Apply topically 2 times daily. 15 g 024 Active cyanocobalamin (Vitamin B-12) 1000 MCG [...] daily. 60 tablet 11 024 2024 Active atorvastatin (Lipitor) 40 MG tablet TAKE 1 TABLET BY MOUTH AT BEDTIME 90 tablet 3 024 Active Potassium Bicarb-Citric Acid 20 MEQ effervescent tabletIndicatio ns:Hypokalemia Take 1 tablet by mouth 2 times daily. Take immediately after eating. Dissolve in 2-3 oz water. 10 tablet 024 Active fluticasone (Flonase) 50 MCG/ACT nasal sprayIndication s:Allergic rhinitis, unspecified seasonality, unspecified trigger INSTILL 2 SPRAYS IN EACH NOSTRIL ONCE DAILY 16 g 5 025 Active clotrimazole (Lotrimin) 1 % cream Apply topically 2 times daily. 30 g 1 025 Active sertraline (Zoloft) 50 MG tabletIndicatio ns:Depressive disorder TAKE 1 TABLET BY MOUTH EVERY MORNING 90 tablet 1 025 Active predniSONE (Deltasone) 20 MG tabletIndicatio ns:COPD exacerbation (CMS/HCC) 2 tabs po daily for 5 days 10 tablet 025 Active Calcium Carb-Cholecalci ferol 600-10 MG-MCG tablet TAKE 1 TABLET BY MOUTH TWICE DAILY IN THE MORNING AND IN THE EVENING 60 tablet 5 025 Active methIMAzole (Tapazole) 10 MG tablet 10 mg. 025 Active metoprolol succinate XL (Toprol-XL) 50 MG 24 hr tablet 50 mg. 025 Active topiramate (Topamax) 100 MG tabletIndicatio ns:Seizure disorder (CMS/HCC) TAKE 1 TABLET BY MOUTH TWICE DAILY IN THE MORNING AND AT BEDTIME 60 tablet 3 025 Active rOPINIRole (Requip) 1 MG tabletIndicatio ns:Restless legs TAKE 1 TABLET BY MOUTH TWICE DAILY IN THE MORNING AND IN THE EVENING 60 tablet 025 Active cetirizine (ZyrTEC) 10 MG tablet TAKE 1 TABLET BY MOUTH EVERY MORNING 90 tablet 3 025 Active Ferrous Sulfate (iron) 325 (65 Fe) MG tabletIndicatio ns:Iron deficiency anemia, unspecified iron deficiency anemia type TAKE 1 TABLET BY MOUTH EVERY MORNING WITH vitamin c 90 tablet 1 025 Active Aspirin Low Dose 81 MG EC tablet TAKE 1 TABLET BY MOUTH AT BEDTIME 90 tablet 3 025 Active D3 Super Strength 50 MCG (2000 UT) capsule TAKE 1 CAPSULE BY MOUTH EVERY MORNING 90 capsule 3 025 Active Aspirin Low Dose 81 MG EC tablet TAKE 1 TABLET BY MOUTH AT BEDTIME 90 tablet 3 024 2024 Discontinued D3 Super Strength 50 MCG (2000 UT) capsule TAKE 1 CAPSULE BY MOUTH EVERY MORNING 90 capsule 3 024 2024 Discontinued FeroSul 325 (65 Fe) MG tabletIndicatio ns:Iron deficiency anemia, unspecified iron deficiency anemia type TAKE 1 TABLET BY MOUTH EVERY MORNING WITH VITAMIN C 90 tablet 1 024 2024 Discontinued Januvia 50 MG tabletIndicatio ns:Diabetic nephropathy associated with type 2 diabetes mellitus (CMS/HCC) TAKE 1 TABLET BY MOUTH EVERY MORNING 90 tablet 1 025 2024 Discontinued(T herapy completed) Active Problems Problem Noted Date Diagnosed Date Tachycardia 08/02/2024 Assessment & Plan (08/02/2024 4:13 PM EDT): Tachycardic with 120 HR on vitals and about 105 bpm on exam. EKG showed sinus rhythm at 96 bpm. Acute dyspnea 08/02/2024 Assessment & Plan (08/02/2024 4:12 PM EDT): Likely due to COPD exacerbation. DO wheezing on exam. O2 SAT stable at 96/97% which seems to be pt's baseline. Tachycardic on exam, EKG showed normal sinus rhythm at 96 bpm. -prescribed azithromycin (Zithromax) 250 MG -prescribed predniSONE (Deltasone) 20 MG COPD exacerbation 08/02/2024 Assessment & Plan (08/02/2024 4:13 PM EDT): Worsening SOB x4 days. Likely due to COPD exacerbation. DO wheezing on exam. O2 SAT stable at 96/97% which seems to be pt's baseline. -prescribed azithromycin (Zithromax) 250 MG -prescribed predniSONE (Deltasone) 20 MG Hyperthyroidism 08/02/2024 Assessment & Plan (08/03/2024 9:16 AM EDT): Symptomatic with weight loss and tachycardia. Has been referred to endo and encouraged to go multiple times. Multiple TSH <0.01 now with elevated T4. Will assist in follow up. Continuous severe abdominal pain 02/02/2024 Assessment & [...] for STAT CT Abdomen & Pelvic 02/02/24. Cigarette nicotine dependence without complicati on 12/03/2022 Recurrent pain of right knee 12/03/2022 Overview (12/03/2022): Requests orthopedics referral. No swelling on exam today. 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 Diabetic [...] Encounters Date Type Department Care Team Description 12/20/2024 9:20 AM EDT Office Visit [facility] [address] [place] [address] Vomiting in adult 12/20/2024 Travel 12/04/2024 Refill [facility] [address] [place] [address] April Dave ANP Diabetic nephropathy associated with type 2 diabetes mellitus ([facility]) 11/29/2024 Telephone [facility] [address] [place] [address] April Dave ANP January recall 11/22/2024 Refill [facility] [address] [place] [address] April Dave ANP Iron deficiency anemia, unspecified iron deficiency anemia type 11/16/2024 Telephone [facility] [address] [place] [phone] April Dave ANP pre op 11/11/[address] [address] Isa Thompson DO 11/10/2024 3:40 PM EDT Office Visit [facility] [address] [place] [phone] Isa Thompson DO Labial irritation (Primary Dx); Vaginal discomfort 11/01/[address] [address] Emily Pitts, NIGEL Paperwork/Forms 10/25/2024 9:15 AM EDT Office Visit [address] [address] April Dave ANP Hyperthyroidism (Primary Dx); Diabetic nephropathy associated with type 2 diabetes mellitus ([facility]); Essential hypertension; Cigarette nicotine dependence without complication 10/25/2024 Travel 10/24/[address] [address] April Dave ANP CHART PREP 10/19/[address] [address] April Dave ANP 10/12/2024 6:00 PM EDT Office Visit [facility] [address] [place] [phone] Herminia Ann NP Right upper quadrant pain (Primary Dx) 10/12/2024 Travel 10/12/2024 Refill [facility] [address] [place] [phone] April Dave ANP Restless legs 10/07/2024 Orders Only [address] [address] Sophia Robles MD Smoking 1/2 pack a day or less (Primary Dx); Stage 3 chronic kidney disease, unspecified whether stage 3a or 3b CKD ([facility]/HCC); Diabetic nephropathy associated with type 2 diabetes mellitus ([facility]/HCC); Transient cerebral ischemia, unspecified type; COPD exacerbation ([facility]); Hyperthyroidism 10/07/[address] [place] [address] Sophia Robles MD Referral 10/06/2024 Telephone [facility] [place] [address] April Dave ANP Call back request; Appointment Request 10/05/2024 Refill [facility] [place] [address] April Dave ANP Seizure disorder ([facility]) 09/27/[address] [place] [address] April Dave ANP Nurse Triage 09/22/[address] [place] [address] Janel Matthews MA chart prep 09/22/[address] [address] April Dave ANP Results 09/21/2024 Orders Only [address] [address] April Dave ANP 09/20/2024 Orders Only GENERIC EXTERNAL DATA DEPARTMENT Provider, Generic External Data 09/19/2024 [facility] [place] [address] April Dave ANP Appointment Confirmation from Last 3 Months Immunizations Immunization Administration Dates Next Due Hep A, Adult [...] 18 12/20/2024 9:12 AM EDT Oxygen Saturation 97% 11/10/2024 3:49 PM EDT Inhaled Oxygen Concentration - - Weight 53.1 kg (117 lb) 12/20/2024 9:12 AM EDT Height 149.9 cm (4' 11 ) 10/25/2024 9:12 AM EDT Body Mass Index 23.63 10/25/2024 9:12 AM EDT Plan of Treatment Upcoming Encounters Date Type Department Care Team (Late st Contact Info) Description 01/31/2025 11:00 AM EST Office Visit [facility] [address] [place] [address] April Dave ANP [address] [place] [address] Health Maintenance Due Date Last Done Comments CT Colonography 1960 FIT DNA/Cologuard 1960 FIT 1960 FOBT 1960 HIV Screening 1960 Lipid Panel 1960 Sigmoidoscopy 1960 Eye Exam 1970 Hepatitis C Screening 1978 RSV Patients and Patients Aged 60 years or older (1 - Risk 60-74 years 1-dose series) 2020 Mammogram 06/06/2021 06/07/2019, 08/19/2017 Diabetes: Foot Exam 01/03/2024 01/02/2023, 01/02/2023, 01/02/2023, Additional history exists COVID-19 Vaccine ( season) 2024 05/15/2022, 07/06/2020, 06/08/2020 Influenza Vaccine (#1) 2024 , 03/04/2021, 02/07/2020, Additional history exists Depression Screening 12/30/2024 12/31/2023, 12/31/19 24 SDOH Screening 12/30/2024 12/31/2023 Diabetes: Hemoglobin A1C 01/25/2025 025, 04/22/2024, 12/31/2023, Additional history exists Alcohol/Substance Use Screening 04/22/2025 04/22/2024 Disability Screening 10/25/2025 10/25/2024 Tobacco Screening 12/20/2025 12/20/2024 Colonoscopy 09/05/2026 09/05/2021 Colorectal Cancer Screening 09/05/2026 Cervical Cancer Screening 06/27/2029 HPV/Cotest 06/27/2029 06/27/2024, 10/30/2016 Pap Smear 06/27/2029 06/27/2024 DTaP/Tdap/Td Vaccines (4 - Td or Tdap) 12/04/2033 12/05/2023, 05/05/2023, 10/06/2011, Additional history exists Hepatitis A Vaccines Completed 08/17/2017, 04/11/19 Hepatitis B Vaccines Completed 08/17/2017, 02/03/2017, 09/24/2016, [...] Procedure Name Priority Date/Time Associated Diagnosis Comments HEMOGLOBIN + HEMATOCRIT Routine 12/20/2024 10:24 AM EDT Iron deficiency anemia, unspecified iron deficiency anemia type POCT RAPID COVID ANTIGEN Routine 12/20/2024 9:26 AM EDT Vomiting in adult POCT INFLUENZA B (ID NOW RAPID MOLECULAR) Routine 12/20/2024 9:26 AM EDT Vomiting in adult POCT INFLUENZA A (ID NOW RAPID MOLECULAR) Routine 12/20/2024 9:26 AM EDT Vomiting in adult CULTURE, URINE, ROUTINE Routine 11/10/2024 4:21 PM EDT Vaginal discomfort POCT URINALYSIS DIPSTICK Routine 11/10/2024 4:19 PM EDT Vaginal discomfort BACTERIAL VAGINOSIS PANEL Routine 11/10/2024 3:52 PM EDT Vaginal discomfort CHLAMYDIA/N. GONORRHOEAE RNA, TMA, UROGENITAL Routine 11/10/2024 3:52 PM EDT Vaginal discomfort POCT GLYCATED HEMOGLOBIN, TOTAL Routine 10/25/2024 9:15 AM EDT Diabetic nephropathy associated with type 2 diabetes mellitus ([facility]/HCC) POCT GLUCOSE Routine 10/25/2024 9:14 AM EDT Diabetic nephropathy associated with type 2 diabetes mellitus ([facility]/HCC) HEPATIC FUNCTION PANEL Routine 10/13/2024 11:27 AM EDT Right upper quadrant pain AMYLASE Routine 10/13/2024 11:27 AM EDT Right upper quadrant pain LIPASE Routine 10/13/2024 11:27 AM EDT Right upper quadrant pain TSI (THYROID STIMULATING IMMUNOGLOBULIN) Routine 09/20/2024 12:03 PM EDT THYROID PEROXIDASE ANTIBODIES Routine 09/20/2024 12:03 PM EDT T3, FREE Routine 09/20/2024 12:03 PM EDT T3, TOTAL Routine 09/20/2024 12:03 PM EDT TSH Routine 09/20/2024 12:03 PM EDT T4, FREE Routine 09/20/2024 12:03 PM EDT HPV DNA, LOW/HIGH RISK Routine 06/27/2024 9:44 AM EDT PAP SMEAR Routine 06/27/2024 9:44 AM EDT Cervical cancer screening HM COLONOSCOPY Routine 09/05/2021 11:04 AM EDT BI MAMMOGRAM SCREENING BILATERAL Routine 06/07/2019 12:30 PM EDT from Last 3 Months or Most Recently Relevant to Health Maintenance Results * (ABNORMAL) Hemoglobin and Hematocrit (12/20/2024 10:24 AM EDT) Hemoglobin 8.7(L) 12.0 - 16.0 g/dl [facility] Hematocrit 27.3(L) 37.0 - 47.0 % [facility] Blood Venous blood specimen / Unknown 12/20/2024 10:24 AM EDT 12/20/2024 11:23 AM EDT April WALKER LAB BLOOD ORDERABLES Final Resul t Performing Organization Address [facility]/ZIP Co de Phone Number [facility] [address] [place] [phone] * Influenza B (ID NOW Rapid Molecular) (12/20/2024 9:26 AM EDT) Pathologist [facility] Influenza B Negative Negative, Indeterminate [facility] Swab 12/20/2024 9:26 AM EDT us James Farris MD POINT OF CARE TEST ENTER/EDIT OR DERABLES Final Result Performing Organization Address [facility] de Phone Number [facility] [address] [place] [phone] * Influenza A (ID NOW Rapid Molecular) (12/20/2024 9:26 AM EDT) Pathologist [facility] Influenza A Negative Negative, Indeterminate [facility] Swab 12/20/2024 9:26 AM EDT us James Farris MD POINT OF CARE TEST ENTER/EDIT OR DERABLES Final Result Performing Organization Address [facility] Co de Phone Number [facility] [address] [place] [phone] * POCT Rapid COVID Ag (12/20/2024 9:26 AM EDT) Pathologist [facility] Rapid COVID Ag Negative Swab 12/20/2024 9:2 6 AM EDT us James Farris MD POINT OF CARE TEST ENTER/EDIT OR DERABLES Final Result * Culture, Urine, Routine (11/10/2024 4:21 PM EDT) Urine Urine specimen obtained by clean catch procedure / Unknown 11/10/2024 4:21 PM EDT 11/10/2024 5:38 PM EDT Comment:UACC Narrative [facility] - 11/12/2024 11:53 AM EDT Urine Culture Report Result Urine Culture > 100,000 cfu/ml Urine Culture Mixed bacterial keven characteristic of Urine Culture urogenital contamination. Specimen Source: Urine clean catch Isa Thompson DO LAB MICROBIOLOGY - GENERAL O RDERABLES Final Result [facility] [address] [place] [phone] * (ABNORMAL) POCT urinalysis dipstick manually resulted (11/10/2024 4:19 PM EDT) Color, UA Yellow Clarity, UA Clear Glucose, UA Negative Bilirubin, UA Negative Ketones, UA Negative Spec Grav, UA 1.010 Blood, UA Positive(A) Negative, None Detected Comment:Trace pH, UA 5.5 Protein, UA Negative Urobilinogen, UA 0.2 Leukocytes, UA Few 15(A) Negative, Rare, Trace Nitrite, UA Negative Negative, None Detected Appearance, UA OK Urine 11/10/2024 4:19 PM EDT Isa Thompson DO POINT OF CARE TEST ENTER/SAY T ORDERABLES Final Result * (ABNORMAL) Bacterial Vaginosis (11/10/2024 3:52 PM EDT) TRICHOMONAS VAGINALIS DETECTION BY PCR NOT DETECTED Not Detect [facility] BACTERIAL VAGINOSIS DETECTION BY PCR POSITIVE(A) Negative [facility] Comment:The BV organism targ ets of the Xpert Xpress MVP test can becommensal in women; Xpert Xpress MVP positive results forbacterial vaginosis should be considered in conjunction withother clinical and patient information to determine thedisease status. Organisms that are not detected by the XpertXpress MVP test have also been reported to be associatedwith BV and aerobic vaginitis.The Xpert Xpress MVP test performance has not been evaluatedin patients under the age of 14. LYNDSEY GROUP DETECTION BY PCR NOT DETECTED Not Detect [facility] Lyndsey glab krusei PCR NOT DETECTED Not Detect [facility] Swab Vaginal structure / Unknown 11/10/2024 3:52 PM EDT 11/10/2024 5:38 PM EDT us Isa Thompson DO LAB MICROBIOLOGY - GENERAL O RDERABLES Final Result [facility] [address] [place] [phone] * (ABNORMAL) Chlamydia/N. Gonorrhoeae RNA, TMA, Urogenitial (11/10/2024 3:52 PM EDT) CT PCR DETECTED(A) Not Detect. [facility] Comment:Detected results may be observed after successful antibiotictreatment due to target nucleic acids from residualnon-viable chlamydia. As with many diagnostic tests, resultsfrom the Xpert CT/NG assay should be interpreted inconjunction with other laboratory and clinical dataavailable to the clinician.Xpert CT/NG performance has not been evaluated in patientsless than 14 years of age. The assay should not be used forthe evaluationof suspected sexual abuse or for other medico- legalindications. Additional testing is recommended inany circumstance when false positive or false negativeresults could lead to adverse medical, social orpsychological consequences.These results must be reported by the ordering clinician orclinical facility to the [facility] required by state law. NG PCR NOT DETECTED Not Detect. [facility] Comment:A not detected test result does not exclude the possibilityof infection because test results can be affected byimproper specimen collection, concurrent antibiotic therapy,or the number of organisms in the specimen which may bebelow the sensitivity of the test. As with many diagnostictests, results from the Xpert CT/NG assay should beinterpreted in conjunction with other laboratory andclinical data available to the clinician.Xpert CT/NG performance has not been evaluated in patientsless than 14 years of age. The assay should not be used forthe evaluationof suspected sexual abuse or for other medico-legalindications. Additional testing is recommended in anycircumstance when false positive or false negative resultscould lead to adverse medical, social or psychologicalconsequences. Swab Vaginal structure / Unknown 11/10/2024 3:52 PM EDT 11/10/2024 5:38 PM EDT Isa Thompson DO LAB MICROBIOLOGY - GENERAL O RDERABLES Final Result Performing Organization Address City/[facility]/ZIP Co de Phone Number [facility] [address] [place] [phone] * POCT HGB A1C (10/25/2024 9:15 AM EDT) Hemoglobin A1C 5.4 4.0 - 5.7 % QC Media Lot # [id number] Lot# Expiration Date Blood 10/25/2024 9:15 AM EDT April WALKER POINT OF CARE TEST ENTER/EDIT OR DERABLES Final Result * POCT Glucose (10/25/2024 9:14 AM EDT) Glucose Blood, POC 126 60 - 200 mg/dL QC Media Lot # [id number] Lot# Expiration Date 132151 Blood Capillary blood specimen / Unknown 10/25/2024 9:14 AM EDT April WALKER POINT OF CARE TEST ENTER/EDIT OR DERABLES Final Result * Lipase (10/13/2024 11:27 AM EDT) Lipase 37 8 - 78 U/L [facility] Blood Venous blood specimen / Unknown 10/13/2024 11:27 AM EDT 10/13/2024 12:53 PM EDT Herminia Ann SERVICE DISMANTLER LAB BLOOD ORDERABLES Final Resu lt Performing Organization Address City/[facility]/ZIP Co de Phone Number [facility] [address] [place] [phone] * Amylase (10/13/2024 11:27 AM EDT) Pathologist [facility] Amylase 39 28 - 100 U/L [facility] Blood Venous blood specimen / Unknown 10/13/2024 11:27 AM EDT 10/13/2024 12:53 PM EDT [facility] SERVICE DISMANTLER LAB BLOOD ORDERABLES Final Resu lt [facility] [address] [place] [phone] [phone] * (ABNORMAL) Hepatic Function Panel (10/13/2024 11:27 AM EDT) [facility] Bilirubin, Total 0.3 0.0 - 1.0 mg/dL [facility] Bilirubin, Direct 0.1 0.0 - 0.5 mg/dL [facility] Aspartate Amino Transferase 18 5 - 31 U/L [facility] Alanine Aminotransferase 12 0 - 31 U/L [facility] Total Protein 7.0 6.5 - 8.0 g/dL [facility] Albumin Level 3.6 3.5 - 5.0 g/dL [facility] Alkaline Phosphatase 121(H) 39 - 117 U/L [facility] Blood Venous blood specimen / Unknown 10/13/2024 11:27 AM EDT 10/13/2024 12:53 PM EDT [facility] SERVICE DISMANTLER LAB BLOOD ORDERABLES Final Resu lt [facility] [address] [place] [phone] * (ABNORMAL) Thyroid Peroxidase Antibodies (09/20/2024 12:03 PM EDT) Pathologist [facility] Thyroid Peroxidase Antibodies 321(A) <9 IU/mL [facility] Comment:THIS TEST WAS PERFOR MED AT:[facility] [address] [id number] WU MD 09/20/2024 12:0 3 PM EDT 09/20/2024 12:03 PM EDT us Generic External Data Provider LAB BLOOD ORDERAB LES Final Result [facility] [address] [place] [phone] [phone] * (ABNORMAL) TSI (Thyroid Stimulating Immunoglobulin) (09/20/2024 12:03 PM EDT) Thyroid Stimulating Immunoglobulin 417(A) <140 % baseline [facility] Comment: Thyroid stimulating immunoglobulins (TSI) can engagethe TSH receptors resulting in hyperthyroidism inGraves' disease patients. TSI levels can be useful inmonitoring the clinical outcome of Graves' disease aswell as assessing the potential for hyperthyroidismfrom maternal- transfer. TSI results greater thanor equal to (>=) 140% of the Reference Control areconsidered positive.NOTE:A serum TSH level greater than 350 micro-InternationalUnits/mL can interfere with the TSI bioassay andpotentially give false positive results.Patients who are and are suspected of havinghyperthyroidism should have both TSI and humanChorionic Gonadotropin(hCG) tests measured. A serumhCG level greater than 40,625 mIU/mL can interferewith the TSI bioassay and may give false negativeresults. In these patients it is recommended thata second TSI be obtained when the hCG concentrationfalls below 40,625 mIU/mL (usually after [id number]).The analytical performance characteristics of thisassay have been determined by [place] [employer] [place], [place]. The modificationshave not been cleared or approved by the FDA. Thisassay has been validated pursuant to the CLIAregulations and is used for clinical purposes.THIS TEST WAS PERFORMED AT:[facility] [place] [phone] SHETTY MD,PHD 09/20/2024 12:0 3 PM EDT 09/20/2024 12:03 PM EDT Generic External Data Provider LAB BLOOD ORDERAB LES Final Result Performing Organization Address [facility] [facility] de Phone Number [facility] [address] [place] [address] [phone] * (ABNORMAL) T3, Free (09/20/2024 12:03 PM EDT) T3, Free 7.6(A) 2.3 - 4.2 pg/mL [facility] Comment:THIS TEST WAS PERFOR MED AT:[facility] [address] [phone] WU MD 09/20/2024 12:0 3 PM EDT 09/20/2024 12:03 PM EDT Generic External Data Provider LAB BLOOD ORDERAB LES Final Result Performing Organization Address [facility] de Phone Number [facility] [address] [place] [address] [phone] * (ABNORMAL) T3, Total (09/20/2024 12:03 PM EDT) [facility] T3, Total 245(A) 76 - 181 ng/dL [facility] Comment:THIS TEST WAS PERFOR MED AT:[facility] [address] [phone] WU MD 09/20/2024 12:0 3 PM EDT 09/20/2024 12:03 PM EDT Generic External Data Provider LAB BLOOD ORDERAB LES Final Result Performing Organization Address [facility] de Phone Number [facility] [address] [place] [address] [phone] * (ABNORMAL) TSH (09/20/2024 12:03 PM EDT) Thyroid Stimulating Hormone <0.01(L) 0.32 - 4.0 uIU/mL [facility] Comment:TSH 3rd Generation ( [facility]) 09/20/2024 12:0 3 PM EDT 09/20/2024 12:03 PM EDT Generic External Data Provider LAB BLOOD ORDERAB LES Final Result Performing Organization Address [facility]/ZIP Co de Phone Number [facility] [address] [place] [phone] * T4, Free (09/20/2024 12:03 PM EDT) Free T4 (Free Thyroxine) 1.47 0.71 - 1.85 ng/dL [facility] 09/20/2024 12:0 3 PM EDT 09/20/2024 12:03 PM EDT Generic External Data Provider LAB BLOOD ORDERAB LES Final Result Performing Organization Address [facility] Co de Phone Number [facility] [address] [place] [phone] * HPV DNA, Low/High Risk (06/27/2024 9:44 AM EDT) HPV High Risk Negative Negative [facility] HPV Genotype 16 Negative Negative [facility] HPV Genotype 18 Negative Negative [facility] Comment:HPV testing performe d at [facility] (CLIA#[id number]), [address] [place] [address].Testing for HPV was performed using the [employer] YVETTE 6800system. The presence of HPV in the female genital tract isassociated with a number of diseases, including cervicalcarcinoma. The HPV DNA high risk pool tests for HPV 31, 33,35, 39, 45, 51, 52, 56, 58, 59, 66 and 68. The testing forHPV 16 and 18 genotypes has also been performed. A positiveresult indicates detection of nucleic acid sequences fromone or more subtypes, whereas a negative result indicatessuch sequences were not detected. 06/27/2024 9:44 AM EDT 06/28/2024 6:00 AM EDT us Luciano Olguin CNM LAB BLOOD ORDERABLES Lali l Result [facility] [address] [place] [phone] * Pap Smear (06/27/2024 9:44 AM EDT) Swab Cervix uteri structure / Unknown 06/27/2024 9:44 AM EDT 06/28/2024 6:00 AM EDT Narrative [facility] - 06/30/2024 9:34 AM EDT ----- ------- Name: Vikki Willis Age/Sex: 64/F : 1960 Unit#: [id number] Attend Dr: LUCIANO OLGUIN CNM Re06/27/24 Status: DEP REF Location: HO.HHCLNP Disch: ----- ------- SPEC : [id number] RECD: 06/28/24 STATUS: TREVER HAIR NUM: [id number] MONICA: 06/27/[address]: LUCIANO OLGUIN CNM ENTERED: 06/28/24 SP TYPE: Pap Smr OTHR : ORDERED: Pap Smear Interpretation Satisfactory for evaluation. Negative for intraepithelial lesion or malignancy. HPV High Risk: Negative HPV Genotyping 16: Negative HPV Genotyping 18: Negative Clinical Information LMP:Post menopausal Previous PAP test:Unknown date/findings Material Received ThinPrep-Cervical ----- ------- Signed (signature on file) BENJAMÍN Chung (ASCP) 06/30/24 0934 ----- ------- END OF REPORT Luciano Olguin CNM LAB CYTOLOGY ORDERABLES F inal Result [facility] [address] [place] [phone] * Hm Colonoscopy (09/05/2021 11:04 AM [...] DIGITAL UBALDO SCR MAMMO 1 Inez Dewitt SERVICE DISMANTLER IMG BI PROCEDURES Final Result from Last 3 Months or Most Recently Relevant to Health Maintenance Insurance [facility] ONE CARE < 65 [place] [id number] Care Teams Revenue Enforcement Collection Agent Relationship Specialty Start Date End Date April Dave ANP [address] [place] [address] PCP - General Family Medicine 11/16/20 Eduarda Krishnan MD [address] [place] [address] Hematology and Oncology 06/01/24June [address] [place] [address] 3rd [place] [address] 06/01/24
--- OUTSIDE RECORDS SUMMARY | 2024-12-20 12:34 | XMS_ITS | Clinical Summary ---
Author Organization [facility] Address [address] [place] [address] [address] TOL[place]INO LYNDONZITA [phone] Phone Care Team Providers Care Director Of Health Care Marketing Name Role Phone Inez Dewitt NP Primary Care Provider [phone] Allergies Active Allergy Reactions Criticality Noted Date [...] by mouth 2 Active UltiCare Mini Pen [place] 31G X 6 MM misc USE FOUR [...] Problem Noted Date Diagnosed Date Tachycardia 08/02/2024 Nicotine dependence, cigarettes, uncomplicated 0 12/03/2022 Gastroesophageal reflux disease 03/25/2022 Dissociative convulsion 12/24/2021 Stage 3a chronic kidney disease 12/24/2021 Renal osteodystrophy 12/24/2021 Renal disorder due to type 2 diabetes mellitus 1 03/30/2020 Chronic kidney disease stage 3 01/28/2021 Benign hypertensive renal disease 01/28/2021 Transient cerebral ischemia 08/25/2017 Peripheral neuropathic pain 05/05/2017 Degenerative joint disease involving multiple mike ints 01/05/2015 Moderate persistent asthma 01/05/2015 Essential hypertension 02/23/2012 Migraine 02/23/2012 Obese 02/23/2012 Immunizations Immunization Administration Dates Next Due Hepatitis A 08/17/2017,04/11/2016 Hepatitis B 08/17/2017, 7,09/24/2016,07/21 Influenza (IM) Preservative Free 12/29/2015,12/29 Influenza Split 05/28/2014,04/13/2014 Influenza, Quadrivalent, Pre servative Free 05/15/2022,03/04/2021,02/07/2020,12/23,12/16/2017,02/03/2017,07/10/2014 Influenza, Quadrivalent, Wit h Preservative 01/20/2018,12/13/2015,01/05/2015 Influenza, Unspecified 12/29/2015,2012,12/01/2012,11/23,01/09/2011 Moderna SARS-COV-2 05/15/2022,07/06/2020, 021 Pneumococcal Conjugate 13-Valent 11/07/2014 Pneumococcal Conjugate Pcv 20 07/01/2023 Pneumococcal Polysaccharide 07/27/2014, 2,08/04/2011 Shingrix 03/08/2019,12/29/2018 Td 05/05/2023,12/08/2006 Tdap 12/05/2023,10/06/2011 Zoster 03/08/2019,12/29/2018 Family History Medical History Relation Comments Diabetes [...] Visit [facility] [address] [place] [phone] Alan Nash MD [address] [facility] [address] [place] [address] Health Maintenance Due Date Last [...] 07/01/2023, 11/07/2014, 07/27/2014, Additional history exists Insurance APT [facility] [place] [address] [facility] ([id number]) [facility] ([id number]) Care Teams Director Of Health Care Marketing Relationship Specialty Start Date End Date Inez Dewitt NP [address] [place] [address] PCP - General 04/09/20
--- OUTSIDE RECORDS SUMMARY | 2024-12-20 12:34 | XMS_ITS | Clinical Summary ---
Author Organization [facility] Address [address] [place], [place] [phone] Phone Care Team Providers Care Senior Electronics Technician Name Role Phone Unavailable Primary Care Provider Unavailabl e Social History Tobacco Use Types Packs/Day Years Used Date Smoking Tobacco: Never Assessed Education Answer Date Recorded Are you interested in more education? Not on evette e 07/25/2022 Are you concerned about learning? Not on file 07/25/2022 No 07/25/2022 No 07/25/2022 Digital Access Answer Date Recorded No 08/25/2022 No 08/25/2022 No 08/25/2022 Reliable internet access at home? Not on file 08/25/2022 Device with a working camera? Not on file Comments Unknown Sex and Gender Information Value Date Recorded Sex Assigned at Not on file Legal Sex Female 10:34 PM EDT Gender Identity Not on file Sexual Orientation Not on file Plan of Treatment Not on file Medical Devices Not on file Insurance [facility] ONE CARE MEDICARE REPLACEMENT [place] [id number] [facility] CARE MEDICARE REPLACEMENT CARE MEDICARE REPLACEMENT [facility] CARE MEDICARE REPLACEMENT CARE MEDICARE REPLACEMENT MEDICARE REPLACEMENT CARE MEDICARE REPLAC[place] [address] [address] CARE MEDICARE REPLACEMENT Additional Source Comments The information contained in this document represents components of the legal health record. It is not the complete legal health record.[facility]
--- OUTSIDE RECORDS SUMMARY | 2024-12-20 12:34 | XMS_ITS | Encounter Summary ---
Author Organization [employer] Address 75 [facility] 7t [place] [address] Care Team Providers Care Civil Service Worker Name Role Phone April Dave Primary Care Provider [phone] Eduarda Krishnan MD Unavailable [phone] June Unavailable Reason for Visit * Reason Comments Med Refill Encounter Details Date Type Department Care Team (Late st Contact Info) Description 01/05/2023 Refill [facility] MEDICINE [address] [place] [address] April Dave ANP [address] [place] [address] Depressive disorder Social History Tobacco Use Types [...] Description 01/31/2025 11:00 AM EST Office Visit [facility] MEDICINE [address] [place] [address] April Dave ANP [address] [place] [address] documented as of this encounter Visit Diagnoses Diagnosis Depressive disorder Depressive disorder, not elsewhere classified documented in this encounter Care Teams Civil Service Worker Relationship Specialty Start Date End Date April Dave ANP [address] [place] [address] PCP - General Family Medicine 11/16/20 Eduarda Krishnan MD [address] [place] [address] Hematology and Oncology 06/01/[address] [place] [address] 3rd [place] [address] 06/01/24 documented as of this encounter
--- OUTSIDE RECORDS SUMMARY | 2024-12-20 12:34 | XMS_ITS | Clinical Summary ---
Author Organization [facility] Address [address] [place] [address] Phone Care Team Providers Care Opal Polisher Name Role Phone April Dave NP Primary Care Provider [phone] Social History Tobacco Use Types Packs/Day Years Used Date Smoking Tobacco: Never Assessed Comments Unknown Sex and Gender Information Value Date Recorded Sex Assigned at Not on file Legal Sex Female 9:35 AM EST Gender Identity Not on file Sexual Orientation Not on file Plan of Treatment Upcoming Encounters Date Type Department Care Team (Late st Contact Info) Description 02/08/2025 1:30 PM EST Office Visit Orthopedic Surgery - [place] [address] [phone] Terell Nicholas DPM [address] [address] Health Maintenance Due Date Last Done Comments Breast Cancer Screening 1960 DTaP,Tdap,and Td Vaccines (1 - Tdap) 1979 Cervical Cancer Screening: P ap Smear 1981 Pneumococcal Vaccine: 50+ Ye ars (1 of 1 - PCV) 2010 Zoster Vaccines (1 of 2) 2010 Colorectal Cancer Screening: Colonoscopy 01/23/2024 HIV Screening 01/23/2024 Hepatitis C Screening 01/23/2024 Medicare Annual Wellness Visit 01/23/2024 Social Influencers of Health Screening 01/23/2024 Depression Screening 03/30/2024 COVID-19 Vaccine ( - 2023-2 5 season) 2024 Influenza Vaccine (#1) 2024 RSV Immunization Adult [...] patient's age to complete this topic Insurance [facility] MEDICARE Member Subscriber Plan / Payer (Ef fective 2016-Present) Name:JOSE WILLIS Relation to Subscriber:Self Name:Jose Willis Payer ID:[id number] Group ID:[id number] Type:Not on file Address: [place] [address] [address] [id number] Care Teams Opal Polisher Relationship Specialty Start Date End Date April Dave NP [address] [place] [address] PCP - General 01/05/24
--- OUTSIDE RECORDS SUMMARY | 2024-12-20 12:34 | XMS_ITS | Encounter Summary ---
Author Organization [employer] Address 75 [facility] [place] [address] Care Team Providers Care Electroplating Laborer Name Role Phone April Dave Primary Care Provider [phone] Eduarda Krishnan MD Unavailable [phone] June Unavailable Reason for Visit * Reason Onset Date Comments Triage 08/22/2022 Encounter Details Date Type Department Care Team ([facility] st Contact Info) Description 08/22/2022 Telephone [facility] MEDICINE [address] [place] [address] April Dave ANP [address] [place] [address] Triage Social History Tobacco Use Types Packs/Day [...] accepted this outcome Please contact pt at [phone] documented in this encounter Plan of Treatment Upcoming Encounters Date Type Department Care Team (Late st Contact Info) Description 01/31/2025 11:00 AM EST Office Visit [facility] MEDICINE [address] [place] [address] April Dave ANP [address] [place] [address] documented as of this encounter Visit Diagnoses Not on filedocumented in this encounter Care Teams Electroplating Laborer Relationship Specialty Start Date End Date April Dave ANP [address] [place] [address] PCP - General Family Medicine 11/16/20 Eduarda Krishnan MD [address] [place] [address] Hematology and Oncology 06/01/24 Trisha June [address] [place] [address] 3rd [place] [address] 06/01/24 documented as of this encounter
--- OUTSIDE RECORDS SUMMARY | 2024-12-20 12:34 | XMS_ITS | Encounter Summary ---
Author Organization [employer] Address 75 [facility] 7[place] [address] Care Team Providers Care Perioperative Assistant Name Role Phone April Dave Primary Care Provider Eduarda Krishnan MD Unavailable [phone] June Unavailable Reason for Visit * Reason Onset Date Comments Med Refill 05/27/2024 Encounter Details Date Type Department Care Team (Late st Contact Info) Description 05/27/2024 Telephone [facility] MEDICINE [address] [place] [address] April Dave ANP [address] [place] [address] Med Refill Social History Tobacco Use Types [...] EST Script was sent on 05/10/24 to [facility]. * Telephone Encounter - Remington Briggs - 05/27/2024 2:48 PM EST TC from pt requesting medication refill. Medications needing refill : rOPINIRole (Requip) 1 MG tablet To be sent to: [facility] - [place], [place] - [address] [facility] Pt states that she dosent have any more left. documented in this encounter Plan of Treatment Upcoming Encounters Date Type Department Care Team (Late st Contact Info) Description 01/31/2025 11:00 AM EST Office Visit [facility] MEDICINE [address] [place] [address] April Dave, AARON [address] [place] [address] documented as of this encounter Visit Diagnoses Not on filedocumented in this encounter Additional Health Concerns Assessment Noted Time PHQ-9 Depression Total Score: 1 12/31/19 24 10:03 AM EDT documented as of this encounter Care Teams Perioperative Assistant Relationship Specialty Start Date End Date April Dave ANP [address] [place] [address] PCP - General Family Medicine 11/16/20 Eduarda Krishnan MD [address] [place] [address] Hematology and Oncology 06/01/[address] [place] [address] 3rd [place] [address] 06/01/24 documented as of this encounter
--- OUTSIDE RECORDS SUMMARY | 2024-12-20 12:34 | XMS_ITS | Encounter Summary ---
Author Organization [employer] Address 75 [facility] 7t [place] [address] Care Team Providers Care Department Supervisor Name Role Phone April Dave AARON Primary Care Provider [phone] Eduarda Krishnan MD Unavailable [phone] June Unavailable Encounter Details Date Type Department Care Team (Latest Contact Info) Description 12/20/2024 Travel Social History Tobacco Use Types Packs/Day [...] Description 01/31/2025 11:00 AM EST Office Visit [facility] MEDICINE 230 [place] [address] April Dave ANP [address] [place] [address] documented as of this encounter Visit Diagnoses Not on filedocumented in this encounter Additional Health Concerns Assessment Noted Time PHQ-9 Depression Total Score: 1 12/31/19 24 10:03 AM EDT documented as of this encounter Care Teams Department Supervisor Relationship Specialty Start Date End Date April Dave ANP [address] [place] [address] PCP - General Family Medicine 11/16/20 Eduarda Krishnan MD [address] [place] [address] Hematology and Oncology 06/01/24June [address] [place] [address] Drive 3rd [place] [address] 06/01/24 documented as of this encounter
--- OUTSIDE RECORDS SUMMARY | 2024-12-20 12:35 | XMS_ITS | Encounter Summary ---
Author Organization [employer] Address 75 [facility] 7t [place] [address] Care Team Providers Care Wire Sawyer Name Role Phone April Dave Primary Care Provider [phone] Eduarda Krishnan MD Unavailable [phone] June Unavailable Reason for Visit * Reason Onset Date Comments Pre-op Exam 09/08/2024 Encounter Details Date Type Department Care Team (Late st Contact Info) Description 09/08/2024 Telephone [facility] MEDICINE [address] [place] [address] April Dave ANP [address] [place] [address] Pre-op Exam Social History Tobacco Use Types Packs/Day Years [...] encounter Miscellaneous Notes * Telephone Encounter - Jerri Holt - 09/08/2024 10:31 AM EDT [place] at [facility] agreed to pre op appointment on 09/23/24 at 2PM. Appointment reminder letter mailed * Telephone Encounter - Gwen Mckenzie - 09/08/2024 9:32 AM EDT Date of Surgery: 10/21/2024 Surgical procedure being done: left shoulder arthroscopy Type of anesthesia: General Lab needed: Yes EKG: Yes Surgeon's name: [facility] Facility name: [facility] Surgeon's office number: [phone] Surgeon's office fax number: [phone] Contact name (person you spoke with): [place] Last office note from surgeon requested: Yes Send Message to Jerri Holt and Serg Almanza documented in this encounter Plan of Treatment Upcoming Encounters Date Type Department Care Team ([facility] Contact Info) Description 01/31/2025 11:00 AM EST Office Visit [facility] MEDICINE [address] [place] [address] April Dave ANP [address] [place] [address] documented as of this encounter Visit Diagnoses Not on filedocumented in this encounter Additional Health Concerns Assessment Noted Time PHQ-9 Depression Total Score: 1 12/31/19 24 10:03 AM EDT documented as of this encounter Care Teams Wire Sawyer Relationship Specialty Start Date End Date April Dave ANP [address] [place] [address] PCP - General Family Medicine 11/16/20 Eduarda Krishnan MD [address] [place] [address] Hematology and Oncology 06/01/24 [address] [place] [address] 3rd [place] [address] 06/01/24 documented as of this encounter
--- OUTSIDE RECORDS SUMMARY | 2024-12-20 12:35 | XMS_ITS | Encounter Summary ---
Author Organization [employer] Address [address] [place] [address] [place], [place] [address] Care Team Providers Care Deckhand Crab Boat Name Role Phone April Dave Primary Care Provider [phone] Eduarda Krishnan MD Unavailable [phone] June Unavailable Encounter Details Date Type Department Care Team (Late st Contact Info) Description 02/28/[address] [facility] [address] [place] [address] Emily Pitts, RN [address] [place] [address] Social History Tobacco Use Types Packs/Day Years [...] Description 01/31/2025 11:00 AM EST Office Visit [facility] MEDICINE [address] [place] [address] April Dave ANP [address] [place] [address] documented as of this encounter Visit Diagnoses Not on filedocumented in this encounter Care Teams Deckhand Crab Boat Relationship Specialty Start Date End Date April Dave ANP [address] [place] [address] PCP - General Family Medicine 11/16/20 Eduarda Krishnan MD [address] [place] [address] Hematology and Oncology 06/01/24June [address] [place] [address] 3rd [place] [address] 06/01/24 documented as of this encounter
--- OUTSIDE RECORDS SUMMARY | 2024-12-20 12:35 | XMS_ITS | Encounter Summary ---
Author Organization [employer] Address 75 [facility] 7t [place] [address] Care Team Providers Care Machine Icer Name Role Phone April Dave Primary Care Provider [phone] Eduarda Krishnan MD Unavailable [phone] June Unavailable Reason for Visit * Reason Comments Med Refill Encounter Details Date Type Department Care Team (Late st Contact Info) Description 06/09/[address] [facility] MEDICINE [address] [place] [address] April Dave ANP [address] [place] [address] Diabetic nephropathy associated with type 2 diabetes [...] Patient states she sees Temitope Rico at [facility] and has a follow-up on 06/30/23. She is not sure whether/when a colonoscopy will be recommended. She states she will fruit picker folic acid supplement and ropinirole from [...] and/or other concerns arise. TC placed to [facility] pharmacy and they stated they were [...] 01/31/2025 11:00 AM EST Office Visit [facility] MEDICINE [address] [place] [address] April Dave ANP [address] [place] [address] documented as of this encounter Visit Diagnoses Diagnosis Diabetic nephropathy associated with type 2 diabetes mellitus (CMS/HCC) documented in this encounter Care Teams Machine Icer Relationship Specialty Start Date End Date April Dave ANP 230 [place] [address] PCP - General Family Medicine 11/16/20 Eduarda Krishnan MD [address] [place] [address] Hematology and Oncology 06/01/[address] 3rd [place] [address] 06/01/24 documented as of this encounter
--- OUTSIDE RECORDS SUMMARY | 2024-12-20 12:35 | XMS_ITS | Encounter Summary ---
Author Organization [employer] Address 75 [facility] 7t [place] [address] Care Team Providers Care Acid Remover Name Role Phone April Dave Primary Care Provider [phone] Eduarda Krishnan MD Unavailable June Unavailable Reason for Visit * Reason Onset Date Comments FYI 03/11/2023 Encounter Details Date Type Department Care Team ([facility] st Contact Info) Description 03/11/2023 Telephone [facility] MEDICINE [address] [place] [address] April Dave ANP 230 [place] [address] FYI Social History Tobacco Use Types Packs/Day [...] 03/11/2023 1:30 PM EST Tc from [facility] with [facility] pulmonology advising PCP, pt preferred [facility] and is booked for 04/29 @ 2:45 PM. documented in this encounter Plan of Treatment Upcoming Encounters Date Type Department Care Team (Late st Contact Info) Description 01/31/2025 11:00 AM EST Office Visit [facility] MEDICINE [address] [place] [address] April Dave ANP [address] [place] [address] documented as of this encounter Visit Diagnoses Not on filedocumented in this encounter Care Teams Acid Remover Relationship Specialty Start Date End Date April Dave ANP [address] [place] [address] PCP - General Family Medicine 11/16/20 Eduarda Krishnan MD [address] [place] [address] Hematology and Oncology 06/01/24June [address] 3rd [place] [address] 06/01/24 documented as of this encounter
[2024-12-20 12:57] LABS: Free T4 (Free Thyroxine) 1.37 ng/dL (0.71-1.85)
[2024-12-20 13:06] LABS: Thyroid Stimulating Hormone < 0.01 uIU/mL (0.32-4.0)
[2024-12-20 13:24] LABS: Anion Gap 9 (12-20)
[2024-12-20 13:29] LABS: Alanine Aminotransferase 7 U/L (0-31); Albumin Level 3.2 g/dL (3.5-5.0); Alkaline Phosphatase 100 U/L (39-117); Aspartate Amino Transferase 21 U/L (5-31); Blood Urea Nitrogen 19 mg/dL (9-16); Calcium 9.2 mg/dL (8.4-10.2); Carbon Dioxide 26 mmol/L (22-29); Chloride 110 mmol/L (96-108); Estimated Glomerular Filt Rate > 60; Lipase 26 U/L (8-78); Potassium 3.6 mmol/L (3.3-5.1); Sodium 141 mmol/L (135-145); Total Protein 6.7 g/dL (6.5-8.0)
== END 2024-12-20 10:21 | disposition home or self-care (01) ==
LOC: HO.HHCL 10:20
PROVIDERS: PCP Nurse Practitioner Primary Care; Referring Provider Emergency Medicine; Visit Provider Student in an Organized Health Care Education/Training Program
DX: E05.00 Thyrotoxicosis with diffuse goiter without thyrotoxic crisis or storm (principal); D50.9 Iron deficiency anemia, unspecified; R11.10 Vomiting, unspecified
CPT/HCPCS: 36415; 80053; 83690; 84439; 84443; 84480; 84481; 85014; 85018

== ENCOUNTER 2024-12-28 13:48 | Outpatient (AMB) | payer OTHER, SELFPAY ==
--- OUTSIDE RECORDS SUMMARY | 2024-12-26 14:15 | XMS_ITS | Encounter Summary ---
Author Organization [facility] Address [address] [address] Phone Care Team Providers Care Printing Press Machine Operator Name Role Phone Inez Dewitt NP Primary Care Provider [phone] Encounter Details Date Type Department Care Team (Late st Contact Info) Description 12/26/2024 2:15 PM EDT [facility] Visit [facility] [address] [place] [phone] Alan Nash MD [address] [phone] Chronic kidney disease, stage 2 (mild) (Primary Dx); Essential hypertension; Renal disorder due to type 2 diabetes mellitus <Diabetic nephropathy> (HCC) Social History Tobacco Use Types Packs/Day Years [...] on file documented as of this encounter Last Filed Vital Signs Vital Sign Reading Time Taken Comments Blood Pressure 138/64 12/26/2024 2:34 PM EDT Pulse 88 12/26/2024 2:34 PM EDT Temperature - - Respiratory Rate - - Oxygen Saturation 99% 12/26/2024 2:34 PM EDT Inhaled Oxygen Concentration - - Weight 52.4 kg (115 lb 9.6 oz) 12/26/2024 2:34 P M EDT Height - - Body Mass Index 24.16 09/25/2022 4:43 PM EDT documented in this encounter Patient Instructions * Patient Instructions* Alan Nash MD - 12/26/2024 2:15 PM EDT No NSAIDS - Do not take non-steroidal anti-inflammatory medications (NSAIDS) such as Ibuprofen (Advil, Motrin, etc), Naproxen (Aleve, etc), Celecoxib (Celebrex) or Ketoprofen. These common arthritis medications can cause permanent kidney damage or worsen your kidney damage. For mild occasional pain, Acetaminophen (Tylenol, etc) is safe for your kidneys. Sodium and Your CKD Diet: How to Spice Up Your Cooking What is sodium? Sodium is a mineral found naturally in foods and is the major part of table salt. What are the effects of eating too much sodium? When your kidneys are not healthy, extra sodium and fluid build up in your body. This can cause swollen ankles, puffiness, a rise in blood pressure, shortness of breath, and/or fluid around your heart and lungs. See the following table for suggestions on how to reduce sodium in your diet. LIMIT THE [AMOUNT OF... FOOD TO LIMIT BECAUSE OF THEIR HIGH SODIUM CONTENT ACCEPTABLE SUBSTITUTES SALT & SALT SEASONINGS Table salt Seasoning salt Garlic salt Onion salt Celery salt Lemon pepper Lite salt Meat tenderizer Bouillon cubes Flavor enhancers Fresh garlic, fresh onion, garlic powder, onion powder, black [pepper, lemon juice, low-sodium/salt-free seasoning blends, vinegar SALTY FOODS Barbecue sauce Steak sauce Soy sauce Teriaky sauce Oyster sauce Salted Snacks such as Crackers Potato chips Baker chips Pretzels Tortilla chips Nuts Popcorn Chilo seeds Homemade or low- sodium sauces and salad dressings; Vinegar, dry mustard, unsalted popcorn, pretzels, tortilla or corn chips Cured Foods Ham Salt pork Sanchez Sauerkraut Pickles, pickle relish Lox & Santos Olives Fresh beef, veal, pork, poultry, fish, eggs [place] [employer] Hot Dogs Cold cuts, deli meats Pastrami Sausage Corned beef Spam Low-salt deli meats PROCESSED FOODS Buttermilk Cheese Canned: Soups Tomato products Vegetable juices Canned vegetables Convenience Foods such as: TV Dinners Canned raviolis [place] Macaroni & Cheese Spaghetti Frozen prepared foods Fast foods Natural cheese (1-2 oz Per week) Homemade or susan,1- sodium soups, canned food without added salt Homemade casseroles without added salt, made with fresh or raw vegetables, fresh meat, fidencio, pasta, or unsalted canned vegetables Some salt or sodium is needed for body water balance. But when your kidneys lose the ability to control sodium and water balance, you may experience the following: thirst fluid gain high blood pressure discomfort during dialysis By using less sodium in your diet, you can control these problems. Hints to keep your sodium intake down Cook with herbs and spices instead of salt. (Refer to Spice Up Your Cooking section for further suggestions.) Read food labels and choose those foods low in sodium. Avoid salt substitutes and specialty low-sodium foods made with salt substitutes because they are high in potassium. When eating out, ask for meat or fish without salt. Ask for gravy or sauce on the side; these may contain large amounts of salt and should be used in small amounts . Limit use of canned, processed and frozen foods. Some information about reading labels Understanding the terms: Sodium Free - Only a trivial amount of sodium per serving. Very Low Sodium - 35 mg or less per serving. Low Sodium - 140 mg or less per serving. Reduced Sodium - Foods in which the level of sodium is reduced by 25%. Light or Lite in Sodium - Foods in which the sodium is reduced by at least 50% . Simple rule of thumb : If salt is listed in the first five ingredients, the item is probably too high in sodium to use. All food labels now have milligrams (mg) of sodium listed. Follow these steps when reading the sodiwn information on the label: 1. Know how much sodium you are allowed each day. Remember that there are 1000 milligrams (mg) in 1gram. For [id number], if your diet prescription is 2 grams of sodium , your limit is 2000 milligrams per day. Consider the sodium value or other food to be eaten during the day. 2. Look at the package label. Check the serving size. Nutrition values are expressed per yoselin g. How does this compare to your total daily allowance? If the sodium level is 500 mg or more per serving, the item is not a good choice. 3. Compare labels of similar products. Select the lowest sodium level for the same serving size. How to Spice Up Your Cooking Giving up salt does not mean giving up flavor. Learn to season your food with herbs and spices. Be creative and experiment for a new and exciting flavor. What kinds of spices and herbs should I use instead of salt to add flavor? Try the following spices with the foods listed. Allspice: Use with beef, fish, beets, cabbage, canots, peas, fruit. Basil: Use with beef, pork, most vegetables. [place]: Use with beef, pork, most vegetables. [place]: Use with beef, pork, green beans, cauliflower, cabbage, beets, asparagus, and in dips and marinades. Cardamom: Use with fruit and in baked goods. Gunter: Use with beef, chicken, pork, fish, green beans, carrots and in marinades. Dill: Use with beef, chicken, green beans, cabbage, carrots, peas and in dips. Ivon: Use with beef, chicken, pork, green beans, cauliflower and eggplant. Marjoram: Use with beef, chicken, pork, green beans, cauliflower and eggplant. [place]: Use with chicken, pork, cauliflower, peas and in marinades. Thyme: Use with beef, chicken, pork, fish, green beans, beets and carrots. Vlad: Use with chicken, pork, eggplant and in dressing. Tarragon: Use with fish, chicken, asparagus, beets, cabbage, cauliflower and in marinades. Tips for cooking with herbs and spices Purchase spices and herbs in small amounts . When they sit on the shelf for years they lose their flavor. Use no more than ?? teaspoon of dried spice (?? of fresh) per pound of meat. Add ground spices to food about 15 minutes before the end of the cooking period. Add whole spices to food at least one hour before the end of the cooking period. Combine herbs with oil or butter, set for 30 minutes to bring out their flavor, then brush on foodswhile they cook, or brush meat with oil and sprinkle herbs one hour before coolcing. Crush dried herbs before adding to foods. Can I use salt substitutes? Caution! If you are told to limit potassium in your diet, be very cautious about using salt substitutes because most of them contain some form of potassium. Check with your doctor or dietitian beforeusing and salt substitute. [place] and create your own seasoning containing those spices that you like. If you would like to become a volunteer and find out more about what's happening where you live, contact your local [facility] Affiliate. Blood pressure monitoring education: Monitor home blood pressure values after sitting for 5 minutes with back and arm support. Keep a log. Bring your log and blood pressure cuff to your next visit. 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 nephropathy> ([facility]) Expected: 12/26/2024, Expires: 01/25/2026 Urine Albumin / Creatinine Ratio Lab Routine Chronic kidney disease, stage 2 (mild) Essential hypertension Renal disorder due to type 2 diabetes mellitus <Diabetic nephropathy> ([facility]) Expected: 12/26/2024, Expires: 01/25/2026 Urinalysis with microscopic Lab Routine Chronic kidney disease, stage 2 (mild) Essential hypertension Renal disorder due to type 2 diabetes mellitus <Diabetic nephropathy> ([facility]) Expected: 12/26/2024, Expires: 01/25/2026 Vitamin B12 Lab Routine Chronic kidney disease, stage 2 (mild) Essential hypertension Renal disorder due to type 2 diabetes mellitus <Diabetic nephropathy> ([facility]) Expected: 12/26/2024, Expires: 01/25/2026 Free serum light chains Lab Routine Chronic kidney disease, stage 2 (mild) Essential hypertension Renal disorder due to type 2 diabetes mellitus <Diabetic nephropathy> (HCC) Expected: 12/26/2024, Expires: 01/25/2026 Immunofixation electrophoresis Lab Routine Chronic kidney disease, stage 2 (mild) Essential hypertension Renal disorder due to type 2 diabetes mellitus <Diabetic nephropathy> (HCC) Expected: 12/26/2024, Expires: 01/25/2026 Iron Panel (Fe, TIBC, TSAT) Lab Routine Chronic kidney disease, stage 2 (mild) Essential hypertension Renal disorder due to type 2 diabetes mellitus <Diabetic nephropathy> (HCC) Expected: 12/26/2024, Expires: 01/25/2026 documented as of this encounter Visit Diagnoses Diagnosis Chronic kidney disease, stage 2 (mild)- Primary Essential hypertension Renal disorder due to type 2 diabetes mellitus <Unspecified DM Medication; Diabetic nephropathy> (HCC) documented in this encounter Care Teams Printing Press Machine Operator Relationship Specialty Start Date End Date Inez Dewitt NP [address] [place] [id number] PCP - General 04/09/20 documented as of this encounter
--- OUTSIDE RECORDS SUMMARY | 2024-12-26 18:00 | XMS_ITS | Encounter Summary ---
Author Organization [employer] Address [address] [facility] 7t [place] [address] Care Team Providers Care [place] Pigeon Loader Name Role Phone [place] Dave AARON Primary Care Provider [phone] Eduarda Krishnan MD Unavailable [phone] June Unavailable Reason for Referral * Imaging (Urgent) - Authorized Specialty Diagnoses / Procedures Referred By Contac t Referred To Contact Cardiology Diagnoses Swelling of right lower extremity Procedures Vascular US lower extremity venous duplex right Herminia Ann NP [address] [place] [address] Phone: tel: fax: [address] Phone: tel: fax: Referral ID Status Reason Start Date Expiration Date Visits Requested Visits Authorized [id number] Authorized Perform Procedure 12/27/2024 12/27/2025 1 1 Encounter Details Date Type Department Care Team (Late st Contact Info) Description 12/26/2024 6:00 PM EDT Office Visit [facility] [address] [place], [place] [phone] Herminia Ann NP [address] [place], [place] [phone] Swelling of right lower extremity (Primary Dx); [...] call hematology ( Dr. Krishnan) for appointment [phone] NISHI. documented in this encounter Progress Notes * Herminia Ann NP - 12/26/2024 6:00 PM EDT Images from the original note were not included. SUBJECTIVE: Vikki Willis is a 64 y.o. female who presents to the [facility] [place] for a sick visit. Denies recent illness, [...] Description 01/31/2025 11:00 AM EST Office Visit [facility] [address] [place] [address] April Dave ANP [address] [place] [address] documented as of this encounter Visit Diagnoses Diagnosis Swelling of right lower extremity- Primary Anemia, unspecified type documented in this encounter Additional Health Concerns Assessment Noted Time PHQ-9 Depression Total Score: 1 12/31/19 24 10:03 AM EDT documented as of this encounter Care Teams [place] Pigeon Loader Relationship Specialty Start Date End Date April Dave ANP [address] [place] [address] PCP - General Family Medicine 11/16/20 Eduarda Krishnan MD [address] [place] [address] Hematology and Oncology 06/01/24June [address] [place] [address] Drive 3rd [place] [address] 06/01/24 documented as of this encounter
[2024-12-28 13:56] VITALS: BP 132/48; PULSE 95; O2SAT 96; BMI 25.3
--- NOTE | 2024-12-28 13:56 | A.OFFVIS_ITS ---
Vital Signs 12/28/24 13:56 Height 4 ft 9 in Weight 116 lb 13.52 oz BMI 25.3 BP 132/48 L Blood Pressure Location Lt brachial Position Sitting Pulse 95 Pulse Source Pulse Oximeter Pulse Oximetry (%) 96 Oxygen Delivery Method Room Air Intake Visit Reasons: COPD/Pre Op Shoulder Arthroscopy Intake Note: pt is here for pre-op clearance, surgery is postponed until February, by [facility] [place]. pt states no breathing issues at all. Medical Transcription Supervisor Required: No Cardroom Attendant: Cardroom Attendant offered & declined Allergies avocado Allergy (Intermediate, Verified 12/28/24 14:06) nephropathy environmental allergies Allergy (Mild, Verified 12/28/24 14:06) hayfever hydrocodone (From Vicodin) Allergy (Mild, Verified 12/28/24 14:06) ITCHING SHANAE Inhibitors (SHANAE INHIBITORS) Allergy (Unknown, Verified 12/28/24 14:06) UNKNOWN lysol wipes Allergy (Mild, Uncoded 12/28/24 14:06) Hives Medication List - Last Reconciled 12/28/24 by Kishor Burnett MD acetaminophen 1,000 mg PO Q6H PRN albuterol sulfate 90 mcg/actuation 2 puffs PO QID PRN atorvastatin 1 tab PO BEDTIME calcium carbonate-vitamin D3 600 mg-10 mcg (400 unit) 1 tab PO BID cetirizine 1 tab PO QAM ferrous sulfate 325 mg PO QAM fluticasone propionate 50 mcg/actuation 2 sprays intranasal DAILY fluticasone propionate 110 mcg/actuation 2 puffs inhalation BID PRN folic acid 1 mg PO DAILY furosemide (Lasix) 20 mg PO QAM imipramine HCl 50 mg (2 x 25 mg) PO BEDTIME levetiracetam 500 mg PO BID methimazole orally; take 1 tablet in the morning and half tablet in the evening daily metoprolol succinate ER 50 mg PO DAILY omeprazole 20 mg PO DAILY@0630 oxcarbazepine 1 tab PO BID ropinirole 1 mg PO BID PRN sertraline 50 mg PO DAILY topiramate 100 mg PO BID Do you need a note to return to daycare/school/sports/work: No HPI HPI COPD/Pre Op Shoulder Arthroscopy: Details: This patient is 64 years old female, who is sent for pulmonary evaluation and pulmonary clearance for forthcoming shoulder surgery. She came with her MATHEMATICAL PHYSICIST , . who helps her at home . Has been a smoker of 1 pack a day for adult life but now cutting down the number of cigarettes, she does use Nicotrol inhaler to assist her in quitting Has diagnosis of bronchial asthma for the last 5 years, with symptoms of mild intermittent cough and some wheezing She is on Flovent-1102 puffs b.i.d. and uses albuterol just as needed. Also has nasal congestion due to allergic rhinitis which is controlled by using Flonase and also cetirizine 10 mg as needed He remains mostly in the house. Has no difficulty in walking around. No shortness of breath during her day-to-day activities. She is not prone to get respiratory infections. [facility] Medical History Migraines Graves' disease Cat bite of forearm Colitis Diverticulitis Seizures Syncope History of TIA (transient ischemic attack) CHF (congestive heart failure) Essential hypertension Hyperlipidemia Type 2 diabetes mellitus with chronic kidney disease Chronic kidney disease, stage 3 Anemia COPD (chronic obstructive pulmonary disease) Asthma JANET (obstructive sleep apnea) Nicotine dependence, cigarettes, uncomplicated Restless leg syndrome Obesity IBS (irritable bowel syndrome) Osteoarthritis Surgical History History of incision and drainage History of appendectomy History of cholecystectomy History of esophagogastroduodenoscopy (EGD) History of colonoscopy History of total left knee replacement (TKR) History of arthroscopy of left knee History of arthroscopy of right knee History of elbow surgery History of surgery on wrist History of carpal tunnel release of both wrists History of lumpectomy of right breast Family History Father Hx of gout Diabetes Mother Diabetes Daughter Pre-diabetes Brother Cancer Social History Household Members: None Housing: Apartment Do you presently have visiting nurse or other home services: Yes Alcohol intake: never Patient Tobacco Use Status: Current everyday Tobacco user Tobacco use type: Cigarette Cigarette Packs Per Day: 1 Cigarettes Per Day: 20.0 Years Smoked: onset 16yo, 3ppd x 47yrs, now 2ppd, >100pyh e-Cigarette/Vaping Use: Never Used Second Hand Smoke Exposure: No Advance Directives Date on File: 02/18/21 service: No Current occupational status: disabled Current occupation: left hand dominant Review of Systems Const All systems reviewed & are unremarkable except as noted in HPI and below Eyes Reports no additional complaints ENT Reports nasal congestion (Off and on) Card Denies chest pain, Denies irregular heart rhythm and Denies leg edema Resp Reports as per HPI GI Reports no additional complaints Reports no additional complaints Musc Reports no additional complaints Skin/Breast Reports system reviewed and no additional complaints, except as documented Neuro Reports no additional complaints Psych Reports no additional complaints Endo Reports no additional complaints Nj/Lymph Reports no additional complaints Aller/Immun Reports no additional complaints Physical Exam Vital Signs: Last Vital Signs Pulse 95 12/28/24 13:56 BP 132/48 L 12/28/24 13:56 Pulse Ox 96 12/28/24 13:56 Oxygen Delivery Method Room Air 12/28/24 13:56 BMI result Body Mass Index 25.3 Const General: healthy appearing, comfortable, no acute distress, alert and awake Orientation/consciousness: patient oriented x3 HEENT Head: Yes normal to inspection General nose exam: No nasal polyps present and No nasal discharge present Face and sinus: Yes sinuses nontender Mouth: oropharynx normal Teeth and gingiva: dentures (at home) and edentulous Throat: Yes posterior oropharynx normal Eyes General: appearance normal, both eyes and all related structures Neck Neck: Yes normal visual inspection, Yes no lymphadenopathy, Yes trachea midline and Yes no JVD Thyroid: Thyroid normal Chest Chest palpation & inspection: normal inspection of the chest, normal palpation of entire chest wall and no tenderness Resp Other: Chest is symmetrical. Percussion. Note resonant on both sides She does have good breath sounds slightly distant with prolonged expiratory phase. No wheezes rhonchi or crepitations are heard. Cardio Palpation: normal PMI Rate: regular rate Rhythm: regular rhythm Heart sounds: no gallops and no murmurs Peripheral pulses: Peripheral pulses 2+ throughout GI Palpation (GI): Soft to palpation, nontender, No hepatosplenomegaly present and no masses Auscultation: normal bowel sounds Back/Spine/Pelvis Thoracic/Lumbar Spine: thoracic and lumbar spine normal to inspection Skin General skin exam: no rashes or lesions noted Neuro General: patient oriented x3 and no focal motor deficits Cranial nerves: Yes CN's II-XII intact bilaterally Extrem General: Yes normal to inspection, Yes no clubbing, cyanosis or edema and Yes no calf tenderness Psych Appearance: grossly normal and well kempt Speech and movement: Normal speech and movement present Results Reviewed Results Reviewed: SPIROMETRY FVC 71% FEV1 67% FEV1/FVC 74, FEF 25-75 21% . THE EXPIRATORY EFFORT WAS LITTLE DISRUPTED 01/08/2024 CT SCAN LUNGS: No acute infiltrate identified. No suspicious lung nodule identified. 0.6 cm or less bilateral upper lobe lung nodules or intrapulmonary lymph nodes, not significantly changed over at least 4 years, therefore benign. Benign calcified right middle lobe granuloma (image 251, series 5). No further dedicated follow-up imaging of these findings is indicated per Fleischner Society guidelines. Assessment & Plan Assessment & Plan (1) COPD (chronic obstructive pulmonary disease): Comment: THE SPIROMETRY FINDINGS ARE INDICATED OF MILD OBSTRUCTIVE AIRWAY DISORDER, PROBABLY DUE TO HER SHELTER SMOKING. PATIENT PROBABLY HAS ASTHMA/COPD Code(s): J44.9 - Chronic obstructive pulmonary disease, unspecified Category: Medical Plan: ADVISED TO QUIT SMOKING AND START CUTTING DOWN THE NUMBER OF CIGARETTES. OKAY TO CONTINUE USING FLOVENT-1102 PUFFS B.I.D., AND USE ALBUTEROL ONLY NEEDED (2) Nicotine dependence, cigarettes, uncomplicated: Comment: (current smoker- onset 16yo, 3ppd x 47yrs, now 1 PK A DAY . SAY IS SHE SMOKES ONLY HALF OF THE CIGARETTES. Code(s): F17.210 - Nicotine dependence, cigarettes, uncomplicated Category: Medical Plan: INSTRUCTED THAT SHE NEEDS TO QUIT COMPLETELY, BEFORE THE PENDING SURGERY. SHE SHOULD ALSO PARTICIPATE IN ANNUAL LUNG SCREENING PROGRAM. Plan PULMONARY CLEARANCE. FOREARM PULMONARY POINT OF VIEW THERE IS NO CONTRAINDICATION TO PLANNED ARTHROSCOPY OF THE LEFT SHOULDER. PATIENT SHOULD CONTINUE TO USE FLOVENT 110 2 PUFFS B.I.D., AND CAN USE ALBUTEROL INHALER ,Q.4 HOURS P.R.N. POSTOPERATIVELY. OR ALTERNATIVELY CAN USE ALBUTEROL SOLUTION IN THE NEBULIZER Q 4-6 HOURS P.R.N.. JUST TO GIVE HER AN INCENTIVE I TOLD HER THAT SHE HAS TO QUIT SMOKING BEFORE THE SURGERY, I THINK SHE WILL MAKE A CONCERTED EFFORT TO AT LEAST CUT DOWN THE NUMBER OF CIGARETTES. Coding Level of Care Code New Pt Level 3 (94121) Diagnoses COPD (chronic obstructive pulmonary disease) J44.9 Nicotine dependence, cigarettes, uncomplicated F17.210
--- OUTSIDE RECORDS SUMMARY | 2024-12-28 15:03 | XMS_ITS | Encounter Summary ---
Author Organization [employer] Address [address] [facility] [address] [address] Care Team Providers Care Center Line Cutter Operator Name Role Phone [place] Primary Care Provider [phone] Eduarda Krishnan MD Unavailable [phone] June Unavailable Reason for Visit * Reason Onset Date Comments Triage 08/22/2022 Encounter Details Date Type Department Care Team ([facility] st Contact Info) Description 08/22/[address] [facility] MED[facility] [address] [place] [address] [place] ANP [address] [place] [address] Triage Social History Tobacco Use Types Packs/Day [...] accepted this outcome Please contact pt at [phone] documented in this encounter Plan of Treatment Upcoming Encounters Date Type Department Care Team (Late st Contact Info) Description 01/31/2025 11:00 AM EST Office Visit [facility] [address] [place] [address] [place] ANP [address] [place] [address] documented as of this encounter Visit Diagnoses Not on filedocumented in this encounter Care Teams Center Line Cutter Operator Relationship Specialty Start Date End Date [place] Dave ANP [address] [place] [address] PCP - General Family Medicine 11/16/20 Eduarda Krishnan MD [address] [place] [address] Hematology and Oncology 06/01/24 Trisha June [address] [place] [address] 3rd [place] [address] 06/01/24 documented as of this encounter
--- OUTSIDE RECORDS SUMMARY | 2024-12-28 15:03 | XMS_ITS | Encounter Summary ---
Author Organization [employer] Address [address] [facility] [address] [place] [address] Care Team Providers Care Tire And Lube Technician Name Role Phone [place] Primary Care Provider [phone] Eduarda Krishnan MD Unavailable [phone] June Unavailable Reason for Visit * Reason Onset Date Comments Hospital Follow-up 12/16/2023 Encounter Details Date Type Department Care Team (Late st Contact Info) Description 12/16/2023 Telephone [facility] MEDICINE [address] [place] [address] [place] ANP [address] [place] [address] Hospital Follow-up Social History Tobacco Use Types [...] from pt requesting a HDF appt. Hospital: [facility] Date of admission: 12/09/23 Discharge date: 12/11/23 Diagnosed: Hand Surgery documented in this encounter Plan of Treatment Upcoming Encounters Date Type Department Care Team (Late st Contact Info) Description 01/31/2025 11:00 AM EST Office Visit [facility] MEDICINE [address] [place] [address] [place] Dave ANP [address] [place] [address] documented as of this encounter Visit Diagnoses Not on filedocumented in this encounter Care Teams Tire And Lube Technician Relationship Specialty Start Date End Date [place] Dave ANP [address] [place] [address] PCP - General Family Medicine 11/16/20 Eduarda Krishnan MD [address] [place] [address] Hematology and Oncology 06/01/[address] 3rd [place] [address] 06/01/24 documented as of this encounter
--- OUTSIDE RECORDS SUMMARY | 2024-12-28 15:03 | XMS_ITS | Clinical Summary ---
Author Organization [facility] Address [address] [place] [address] Phone Care Team Providers Care Product Manufacturing Professional Name Role Phone [place] NP Primary Care Provider [phone] Social History Tobacco Use Types Packs/Day Years [...] PM EST Office Visit Orthopedic Surgery - [place] [address] [phone] Terell Nicholas DPM [address] [address] Health Maintenance Due Date Last Done Comments Breast Cancer Screening 1960 Colorectal Cancer Screening: Colonoscopy 1960 DTaP,Tdap,and Td Vaccines (1 - Tdap) 1979 Cervical Cancer Screening: P ap Smear 1981 Pneumococcal Vaccine: 50+ Ye ars (1 of 1 - PCV) 2010 Zoster Vaccines (1 of 2) 2010 HIV Screening 01/23/2024 Hepatitis C Screening 01/23/2024 [...] patient's age to complete this topic Insurance [facility] MEDIC[facility] Member Subscriber Plan / Payer (Ef fective 2016-Present) Name:JOSE WILLIS Relation to Subscriber:Self Name:Jose Willis Payer ID:[id number] Group ID:[id number] Type:Not on file Address: [place] [address] [address] [id number] Care Teams Product Manufacturing Professional Relationship Specialty Start Date End Date April Dave NP [address] [place] [address] PCP - General 01/05/24
--- OUTSIDE RECORDS SUMMARY | 2024-12-28 15:03 | XMS_ITS | Encounter Summary ---
Author Organization [employer] Address [address] [facility] 7[place] [address] Care Team Providers Care Nurse Case Management Name Role Phone [place] Primary Care Provider [phone] Eduarda Krishnan MD Unavailable [phone] June Unavailable Reason for Visit * Reason Onset Date Comments Med Refill 05/27/2024 Encounter Details Date Type Department Care Team (Late st Contact Info) Description 05/27/2024 Telephone [facility] MEDICINE [address] [place] [address] April Dave ANP [address] [place] [address] Med Refill Social History Tobacco Use Types [...] EST Script was sent on 05/10/24 to [facility]. * Telephone Encounter - Remington Briggs - 05/27/2024 2:48 PM EST TC from pt requesting medication refill. Medications needing refill : rOPINIRole (Requip) 1 MG tablet To be sent to: [facility] - [place], [place] - [address] [facility] Pt states that she dosent have any more left. documented in this encounter Plan of Treatment Upcoming Encounters Date Type Department Care Team (Late st Contact Info) Description 01/31/2025 11:00 AM EST Office Visit [facility] MEDICINE [address] [place] [address] April Dave, AARON [address] [place] [address] documented as of this encounter Visit Diagnoses Not on filedocumented in this encounter Additional Health Concerns Assessment Noted Time PHQ-9 Depression Total Score: 1 12/31/19 24 10:03 AM EDT documented as of this encounter Care Teams Nurse Case Management Relationship Specialty Start Date End Date [place] Dave ANP [address] [place] [address] PCP - General Family Medicine 11/16/20 Eduarda Krishnan MD [address] [place] [address] Hematology and Oncology 06/01/[address] [place] [address] 3rd [place] [address] 06/01/24 documented as of this encounter
--- OUTSIDE RECORDS SUMMARY | 2024-12-28 15:03 | XMS_ITS | Encounter Summary ---
Author Organization [facility] Address [address] [facility] [address] [place] [address] Phone Care Team Providers Care Electrician Supervisor Substation Name Role Phone Unavailable Primary Care Provider Unavailabl e Encounter Details Date Type Department Care Team (Latest Contact Info) Description 06/25/2018 Ancillary Orders [facility] [address] [place] [address] [place] [address] Nba Bernstein, [address] [address] Chest pain, unspecified type Social History Tobacco [...] It is not the complete legal health record.[facility]
--- OUTSIDE RECORDS SUMMARY | 2024-12-28 15:03 | XMS_ITS | Clinical Summary ---
Author Organization [employer] Address [address] [facility] [address] [place] [address] Care Team Providers Care Tying Machine Operator Lumber Name Role Phone April Dave AARON Primary Care Provider [phone] Eduarda Krishnan MD Unavailable [phone] June Unavailable Allergies Active Allergy Reactions [...] unspecified whether stage 3a or 3b CKD (HCC) 1 kit See administration instructions. Use for [...] (Keppra) 500 MG tabletIndicatio ns:Seizure disorder (CMS/HCC) (HCC) Take 1 tablet (500 mg) by mouth [...] (Deltasone) 20 MG tabletIndicatio ns:COPD exacerbation (CMS/HCC) (HCC) 2 tabs po daily for 5 days [...] (Topamax) 100 MG tabletIndicatio ns:Seizure disorder (CMS/HCC) (HCC) TAKE 1 TABLET BY MOUTH TWICE DAILY [...] MORNING 90 capsule 3 024 2024 Discontinued Januvia 50 MG tabletIndicatio ns:Diabetic nephropathy associated with type 2 diabetes mellitus (HCC) TAKE 1 TABLET BY MOUTH EVERY MORNING [...] -prescribed predniSONE (Deltasone) 20 MG COPD exacerbation (CMS/HCC) 08/02/2024 Assessment & Plan (08/02/2024 4:13 PM [...] pain 05/05/2017 Stage 3 chronic kidney disease ([facility]/HCC) 017 Allergic rhinitis 01/05/2015 Constipation 01/05/2015 Depressive disorder 01/05/2015 Essential hypertension 01/05/2015 Hyperlipidemia 01/05/2015 Moderate persistent asthma 01/05/2015 Obstructive sleep apnea syndrome 01/05/2015 Primary osteoarthritis involving multiple joints 01/05/2015 Restless legs 01/05/2015 Seizure disorder ([facility]/HCC) 01/05/2015 Vitamin D deficiency 01/05/2015 Resolved Problems [...] Encounters Date Type Department Care Team Description 12/27/2024 Orders Only [facility] [address] [place] [phone] April Dave ANP Diabetic nephropathy associated with type 2 diabetes mellitus ([facility]) (Primary Dx); Essential hypertension; Obstructive sleep apnea syndrome; Hyperthyroidism; Iron deficiency anemia, unspecified iron deficiency anemia type; Chronic obstructive pulmonary disease, unspecified COPD type ([facility]) 12/26/2024 6:00 PM EDT Office Visit [facility] [address] [place] [address] Herminia Ann NP Swelling of right lower extremity (Primary Dx); Anemia, unspecified type 12/20/2024 9:20 AM EDT Office Visit [facility] [address] [place] [address] James Farris MD Vomiting in adult 12/20/2024 Results Follow-Up [facility] [address] [place] [phone] April Dave ANP Hemoglobin and Hematocrit 12/20/2024 Orders Only GENERIC EXTERNAL DATA DEPARTMENT Provider, Generic External Data 12/20/2024 Travel 12/04/2024 Refill [facility] [place] [address] April Dave ANP Diabetic nephropathy associated with type 2 diabetes mellitus ([facility]/HCC) 11/29/2024 Telephone [facility] [address] [place] [phone] April Dave ANP November 11/22/2024 Refill [facility] [place] [address] April Dave ANP Iron deficiency anemia, unspecified iron deficiency anemia type 11/16/[address] [phone] April Dave ANP pre op 11/11/[address] [address] Isa [place] DO 11/10/2024 3:40 PM EDT Office Visit [facility] [address] [place] [phone] Isa [place] DO Labial irritation (Primary Dx); Vaginal discomfort 11/01/[address] [address] Emily Pitts RN Paperwork/Forms 10/25/2024 9:15 AM EDT Office Visit [address] [address] April Dave ANP Hyperthyroidism (Primary Dx); Diabetic nephropathy associated with type 2 diabetes mellitus ([facility]); Essential hypertension; Cigarette nicotine dependence without complication 10/25/2024 Travel 10/24/[address] [phone] April Dave ANP CHART PREP 10/19/2024 Refill [facility] [address] [place] [phone] April Dave ANP 10/12/2024 6:00 PM EDT Office Visit [facility] [address] [place] [phone] Herminia Ann NP Right upper quadrant pain (Primary Dx) 10/12/2024 Travel 10/12/2024 Refill [facility] [address] [place] [phone] April Dave ANP Restless legs 10/07/2024 Orders Only [facility] [address] [place] [address] Sophia Robles MD Smoking 1/2 pack a day or less (Primary Dx); Stage 3 chronic kidney disease, unspecified whether stage 3a or 3b CKD ([facility]); Diabetic nephropathy associated with type 2 diabetes mellitus ([facility]); Transient cerebral ischemia, unspecified type; COPD exacerbation ([facility]); Hyperthyroidism 10/07/2024 Telephone [facility] [address] [place] [address] Sophia Robles MD Referral 10/06/[address] [address] April Dave ANP Call back request; Appointment Request 10/05/2024 Refill [facility] [address] [place] [phone] April Dave ANP Seizure disorder ([facility]) 09/27/[address] [address] April Dave ANP Nurse Triage from Last 3 Months Immunizations Immunization Administration [...] is your housing situation today? I have kristevin arce 01/12/[address] you [...] (114 lb) 12/26/2024 5:54 PM EDT Height 149.9 cm (4' 11 ) 10/25/2024 9:12 AM EDT Body Mass Index 23.03 10/25/2024 9:12 AM EDT Plan of Treatment Upcoming Encounters Date Type Department Care Team (Late st Contact Info) Description 01/31/2025 11:00 AM EST Office Visit [facility] [address] [place] [address] April Dave ANP [address] [place], [place] [phone] Health Maintenance Due Date Last Done Comments CT Colonography 1960 FIT DNA/Cologuard 1960 FIT 1960 FOBT 1960 HIV Screening 1960 Lipid Panel 1960 Sigmoidoscopy 1960 Eye Exam 1970 Hepatitis C Screening 1978 RSV Patients and Patients Aged 60 years or older (1 - Risk 60-74 years 1-dose series) 2020 Mammogram 06/06/2021 06/07/2019, 08/19/2017 COVID-19 Vaccine ( season) 2024 05/15/2022, 07/06/2020, 06/08/2020 Influenza Vaccine (#1) 2024 , 03/04/2021, 02/07/2020, Additional history exists Depression Screening 12/30/2024 12/31/2023, 12/31/19 SDOH Screening 12/30/2024 12/31/2023 Diabetes: Hemoglobin A1C 01/25/2025 025, 04/22/2024, 12/31/2023, Additional history exists Alcohol/Substance Use Screening 04/22/2025 04/22/2024 Disability Screening 10/25/2025 10/25/2024 Diabetes: Foot Exam 12/26/2025 12/26/2024, 12/26/2024, 12/26/2024, Additional history exists Tobacco Screening 12/27/2025 12/27/2024 Colonoscopy 09/05/2026 09/05/2021 Colorectal Cancer Screening 09/05/2026 [...] Procedure Name Priority Date/Time Associated Diagnosis Comments T3, FREE Routine 12/20/2024 10:24 AM EDT T3, TOTAL Routine 12/20/2024 10:24 AM EDT TSH Routine 12/20/2024 10:24 AM EDT T4, FREE Routine 12/20/2024 10:24 AM EDT LIPASE Routine 12/20/2024 10:24 AM EDT Vomiting in adult COMPREHENSIVE METABOLIC PANEL Routine 12/20/2024 10:24 AM EDT Vomiting in adult HEMOGLOBIN + HEMATOCRIT Routine 12/20/2024 10:24 AM [...] nephropathy associated with type 2 diabetes mellitus ([facility]/HCC) POCT GLUCOSE Routine 10/25/2024 9:14 AM EDT Diabetic nephropathy associated with type 2 diabetes mellitus ([facility]/HCC) HEPATIC FUNCTION PANEL Routine 11:27 AM EDT Right upper quadrant pain AMYLASE Routine 10/13/2024 11:27 AM EDT Right upper quadrant pain LIPASE Routine 10/13/2024 11:27 AM EDT Right upper quadrant pain HPV DNA, LOW/HIGH RISK Routine 9:44 AM EDT PAP SMEAR Routine 06/27/2024 9:44 AM EDT Cervical cancer screening HM COLONOSCOPY Routine 09/05/2021 11:04 AM EDT BI MAMMOGRAM SCREENING BILATERAL Routine 06/07/2019 12:30 PM EDT from Last 3 Months or Most Recently Relevant to Health Maintenance Results * (ABNORMAL) Hemoglobin and Hematocrit (12/20/2024 10:24 AM EDT) Hemoglobin 8.7(L) 12.0 - 16.0 g/dl [facility] Hematocrit 27.3(L) 37.0 - 47.0 % [facility] Blood Venous blood specimen / Unknown 12/20/2024 10:24 AM EDT 12/20/2024 11:23 AM EDT us [facility] LAB BLOOD ORDERABLES Final Resul t Performing Organization Address [facility] de Phone Number [facility] [address] [place] [phone] * (ABNORMAL) T3, Free (12/20/2024 10:24 AM EDT) Pathologist [facility] T3, Free 5.3(A) 2.3 - 4.2 pg/mL [facility] Comment:THIS TEST WAS PERFOR MED AT:[employer] [facility] [place] [phone] WU MD 12/20/2024 10:2 4 AM EDT 12/20/2024 11:23 AM EDT [facility] External Data Provider LAB BLOOD ORDERAB LES Final Result Performing Organization Address [facility] de Phone Number [facility] [address] [place] [phone] * T3, Total (12/20/2024 10:24 AM EDT) Pathologist [facility] T3, Total 162 76 - 181 ng/dL [facility] Comment:THIS TEST WAS PERFOR MED AT:[facility] [employer] [facility] [place] [phone] WU MD 12/20/2024 10:2 4 AM EDT 12/20/2024 11:23 AM EDT Generic External Data Provider LAB BLOOD ORDERAB LES Final Result Performing Organization Address [facility] de Phone Number [facility] [address] [place] [phone] * (ABNORMAL) TSH (12/20/2024 10:24 AM EDT) [facility] Thyroid Stimulating Hormone <0.01(L) 0.32 - 4.0 uIU/mL [facility] Comment:TSH 3rd Generation ( [facility] [facility]) 12/20/2024 10:2 4 AM EDT 12/20/2024 11:23 AM EDT us Generic External Data Provider LAB BLOOD ORDERAB LES Final Result Performing Organization Address [facility]/ZIP Co de Phone Number [facility] [address] [place] [phone] * T4, Free (12/20/2024 10:24 AM EDT) Free T4 (Free Thyroxine) 1.37 0.71 - 1.85 ng/dL [facility] 12/20/2024 10:2 4 AM EDT 12/20/2024 11:23 AM EDT Generic External Data Provider LAB BLOOD ORDERAB LES Final Result Performing Organization Address [facility] Co de Phone Number [facility] [address] [place] [phone] * Lipase (12/20/2024 10:24 AM EDT) Only the most recent of2 resultswithin the time period is included. Lipase 26 8 - 78 U/L [facility] Blood Venous blood specimen / Unknown 12/20/2024 10:24 AM EDT 12/20/2024 11:23 AM EDT us James Farris MD LAB BLOOD ORDERABLES Final Resul t Performing Organization Address [facility] Co de Phone Number [facility] [address] [place] [phone] * (ABNORMAL) Comprehensive Metabolic Panel (12/20/2024 10:24 AM EDT) Sodium 141 135 - 145 mmol/L [facility] Potassium 3.6 3.3 - 5.1 mmol/L [facility] Chloride 110(H) 96 - 108 mmol/L [facility] Carbon Dioxide 26 22 - 29 mmol/L [facility] Anion Gap 9(L) 12 - 20 [facility] Urea Nitrogen (BUN) 19(H) 9 - 16 mg/dL [facility] Creatinine, Serum 0.79 0.5 - 1.4 mg/dL [facility] Estimated Glomerular Filt Rate >60 [facility] Comment:Chronic Kidney Disea se: Estimated GFR < 60 mL/min/1.44l4Nmeknk Kidney Disease: Estimated GFR < 15 mL/min/1.73m2 Glucose 96 60 - 115 mg/dL [facility] Calcium 9.2 8.4 - 10.2 mg/dL [facility] Bilirubin, Total 0.2 0.0 - 1.0 mg/dL [facility] Aspartate Amino Transferase 21 5 - 31 U/L [facility] Alanine Aminotransferase 7 0 - 31 U/L [facility] Total Protein 6.7 6.5 - 8.0 g/dL [facility] Albumin Level 3.2(L) 3.5 - 5.0 g/dL [facility] Alkaline Phosphatase 100 39 - 117 U/L [facility] Blood Venous blood specimen / Unknown 12/20/2024 10:24 AM EDT 12/20/2024 11:23 AM EDT us James Farris MD LAB BLOOD ORDERABLES Final Resul t Performing Organization Address City/[facility] Co de Phone Number [facility] [address] [place] [phone] * Influenza B (ID NOW Rapid Molecular) (12/20/2024 9:26 AM EDT) Influenza B Negative Negative, Indeterminate [facility] Swab 12/20/2024 9:26 AM EDT us James Farris MD POINT OF CARE TEST ENTER/EDIT OR DERABLES Final Result Performing Organization Address [facility] Co de Phone Number [facility] [address] [place] [phone] * Influenza A (ID NOW Rapid Molecular) (12/20/2024 9:26 AM EDT) [facility] Influenza A Negative Negative, Indeterminate [facility] Swab 12/20/2024 9:26 AM EDT James Farris MD POINT OF CARE TEST ENTER/EDIT OR DERABLES Final Result Performing Organization Address [facility] de Phone Number [facility] [address] [place] [phone] * POCT Rapid COVID Ag (12/20/2024 9:26 AM EDT) [facility] Rapid COVID Ag Negative Swab 12/20/2024 9:26 AM EDT James Farris MD POINT OF CARE TEST ENTER/EDIT OR DERABLES Final Result * Culture, Urine, Routine (11/10/2024 4:21 PM EDT) Urine Urine specimen obtained by clean catch procedure / Unknown 11/10/2024 4:21 PM EDT 11/10/2024 5:38 PM EDT Comment:UACC Narrative [facility] - 11/12/2024 11:53 AM EDT Urine Culture Report Result Urine Culture > 100,000 cfu/ml Urine Culture Mixed bacterial keven characteristic of Urine Culture urogenital contamination. Specimen Source: Urine clean catch Isa [place] DO LAB MICROBIOLOGY - GENERAL O RDERABLES Final Result Performing Organization Address [facility] Co de Phone Number [facility] [address] [place] [phone] * (ABNORMAL) POCT urinalysis dipstick manually [...] (ABNORMAL) Bacterial Vaginosis (11/10/2024 3:52 PM EDT) Pathologist [facility] TRICHOMONAS VAGINALIS DETECTION BY PCR NOT DETECTED Not Detect [facility] BACTERIAL VAGINOSIS DETECTION BY PCR POSITIVE(A) Negative [facility] Comment:The BV organism targ ets of [...] DETECTION BY PCR NOT DETECTED Not Detect [facility] Lyndsey glab krusei PCR NOT DETECTED Not Detect [facility] Swab Vaginal structure / Unknown 11/10/2024 3:52 PM EDT 11/10/2024 5:38 PM EDT Isa [place] DO LAB MICROBIOLOGY - GENERAL O RDERABLES Final Result [facility] [address] [place] [phone] * (ABNORMAL) Chlamydia/N. Gonorrhoeae RNA, TMA, Urogenitial (11/10/2024 3:52 PM EDT) CT PCR DETECTED(A) Not Detect. [facility] Comment:Detected results may be observed after [...] the ordering clinician orclinical facility to [facility] required by state law. NG PCR NOT DETECTED Not Detect. [facility] Comment:A not detected test result does [...] MICROBIOLOGY - GENERAL O RDERABLES Final Result [facility] [address] [place] [address] [phone] * POCT HGB A1C (10/25/2024 9:15 AM EDT) Pathologist [facility] Hemoglobin A1C 5.4 4.0 - 5.7 % [employer] Lot # [id number] Lot# Expiration Date Blood 10/25/2024 9:15 AM EDT us April Dave ANP POINT OF CARE TEST ENTER/EDIT OR DERABLES Final Result * POCT Glucose (10/25/2024 9:14 AM EDT) Glucose Blood, POC 126 60 - 200 mg/dL [employer] Lot # [id number] Lot# Expiration Date [id number] Blood Capillary blood specimen / Unknown 10/25/2024 9:14 AM EDT April Dave ANP POINT OF CARE TEST ENTER/EDIT OR DERABLES Final Result * Amylase (10/13/2024 11:27 AM EDT) Amylase 39 28 - 100 U/L [facility] Blood Venous blood specimen / Unknown 10/13/2024 11:27 AM EDT 10/13/2024 12:53 PM EDT Herminia Ann NP LAB BLOOD ORDERABLES Final Resu lt [facility] [address] [place] [address] [phone] * (ABNORMAL) Hepatic Function Panel (10/13/2024 11:27 AM EDT) Bilirubin, Total 0.3 0.0 - 1.0 mg/dL [facility] Bilirubin, Direct 0.1 0.0 - 0.5 mg/dL [facility] Aspartate Amino Transferase 18 5 - 31 U/L [facility] Alanine Aminotransferase 12 0 - 31 U/L [facility] Total Protein 7.0 6.5 - 8.0 g/dL [facility] Albumin Level 3.6 3.5 - 5.0 g/dL [facility] Alkaline Phosphatase 121(H) 39 - 117 U/L [facility] Blood Venous blood specimen / Unknown 10/13/2024 11:27 AM EDT 10/13/2024 12:53 PM EDT Herminia Alma Rosakatie [employer] LAB BLOOD ORDERABLES Final Resu lt Performing Organization Address City/[facility]/ZIP Co de Phone Number [facility] [address] [place] [address] [phone] * HPV DNA, Low/High Risk (06/27/2024 9:44 AM EDT) HPV High Risk Negative Negative [facility] HPV Genotype 16 Negative Negative [facility] HPV Genotype 18 Negative Negative [facility] Comment:HPV testing performe d at [facility] (CLIA#[id number]), [address] [place] [address].Testing for HPV was performed using the [employer] [...] 9:44 AM EDT 06/28/2024 6:00 AM EDT Luciano Olguin CNM LAB BLOOD ORDERABLES Lali l Result Performing Organization Address City/[facility]/ZIP Co de Phone Number [facility] [address] [place] [address] [phone] * Pap Smear (06/27/2024 9:44 AM EDT) Swab Cervix uteri structure / Unknown 06/27/2024 9:44 AM EDT 06/28/2024 6:00 AM EDT [facility] - 06/30/2024 9:34 AM EDT ----- ------- Name: Vikki Willis Age/Sex: 64/F : 1960 Unit#: [id number] Attend Dr: LUCIANO OLGUIN CNM Re06/27/24 Status: [facility] Disch: ----- ------- SPEC : [id number] RECD: 06/28/24 STATUS: TREVER HAIR NUM: [id number] MONICA: 06/27/[address] [facility] [address]: LUCIANO OLGUIN CNM ENTERED: 06/28/24 SP TYPE: Pap Smr OTHR DR: ORDERED: Pap Smear Interpretation Satisfactory for evaluation. Negative for intraepithelial lesion or malignancy. HPV High Risk: Negative HPV Genotyping 16: Negative HPV Genotyping 18: Negative Clinical Information LMP:Post menopausal Previous PAP test:Unknown date/findings Material Received ThinPrep-Cervical ----- ------- Signed (signature on file) BENJAMÍN Chung ([facility]) 06/30/24 0934 ----- ------- END OF REPORT Luciano Olguin [facility] CYTOLOGY ORDERABLES F inal Result [facility] [address] [place] [phone] * Hm Colonoscopy (09/05/2021 11:04 AM [...] Procedure: 3D DIGITAL UBALDO SCR MAMMO 1 us Inez Dewitt [employer] IMG BI PROCEDURES Final Result from Last 3 Months or Most Recently Relevant to Health Maintenance Insurance [facility] ONE CARE < 65 [place] [id number] Care Teams Tying Machine Operator Lumber Relationship Specialty Start Date End Date April Dave ANP [address] [place] [phone] PCP - General Family Medicine 11/16/20 Eduarda Krishnan MD [address] [place] [phone] Hematology and Oncology 06/01/24June [address] [place] [address] 3[address] [place] [address] 06/01/24
--- OUTSIDE RECORDS SUMMARY | 2024-12-28 15:03 | XMS_ITS | Encounter Summary ---
Author Organization [employer] Address 75 [facility] 7 [place] [address] Care Team Providers Care Primer Inserting Machine Adjuster Name Role Phone April Dave Primary Care Provider [phone] Eduarda Krishnan MD Unavailable [phone] June Unavailable Reason for Referral * Consultation (Routine) - Authorized Specialty Diagnoses / Procedures Referred By Contac t Referred To Contact Cardiology Diagnoses Diabetic nephropathy associated with type 2 diabetes mellitus (HCC) Essential hypertension Obstructive sleep apnea syndrome Hyperthyroidism Iron deficiency anemia, unspecified iron deficiency anemia type Chronic obstructive pulmonary disease, unspecified COPD type (CMS/HCC) (HCC) April Dave ANP [address] [place] [address] Phone: tel: fax: Nba Bernstein MD [address] [place] [address] Phone: tel: fax: Referral ID Status Reason Start Date Expiration Date Visits Requested Visits Authorized [id number] Authorized Specialty Services Required 12/27/2024 12/27/2025 1 1 Scheduling Instructions Pt no showed x 3 to [facility] [place], needs to be sent elsewhere. thanks Encounter Details Date Type Department Care Team (Late st Contact Info) Description 12/27/2024 Orders Only [facility] [address] [place] [address] April Dave ANP [address] [place] [address] Diabetic nephropathy associated with type 2 diabetes mellitus ([facility]/HCC) (Primary Dx); Essential hypertension; Obstructive sleep apnea syndrome; Hyperthyroidism; Iron deficiency anemia, unspecified iron deficiency anemia type; Chronic obstructive pulmonary disease, unspecified COPD type (CMS/HCC) Social History Tobacco Use Types Packs/Day [...] encounter Progress Notes * AARON Linares - 12/27/2024 4:03 PM EDT Pt has no-showed to multiple [facility] [place] appts scheduled for pre-op evaluation for L shoulder arthroscopy at [facility] ortho. PMH incl diabetes, hypertension, hyperlipidemia, nephropathy, asthma, JANET, peripheral neuropathy, RLS, GERD, anemia, COPD and smoking, hyperthyroid Lab Results Component Value Date HGBA1C 5.4 10/25/2024 Orders Only on 12/20/2024 Component Date Value Ref Range Status Free T4 (Free Thyroxine) 12/20/2024 1.37 0.71 - 1.85 ng/dL Final Thyroid Stimulating Hormone 12/20/2024 <0.01 (L) 0.32 - 4.0 uIU/mL Final TSH 3rd Generation ([facility]) T3, Total 12/20/2024 162 76 - 181 ng/dL Final THIS TEST WAS PERFORMED AT:[facility] [address] [id number] WU MD T3, Free 12/20/2024 5.3 (A) 2.3 - 4.2 pg/mL Final THIS TEST WAS PERFORMED AT:[facility] [address] [id number] WU MD Office Visit on 12/20/2024 Component Date Value Ref Range Status Influenza A 12/20/2024 Negative Negative, Indeterminate Final Influenza B 12/20/2024 Negative Negative, Indeterminate Final Rapid COVID Ag 12/20/2024 Negative Final Sodium 12/20/2024 141 135 - 145 mmol/L Final Potassium 12/20/2024 3.6 3.3 - 5.1 mmol/L Final Chloride 12/20/2024 110 (H) 96 - 108 mmol/L Final Carbon Dioxide 12/20/2024 26 22 - 29 mmol/L Final Anion Gap 12/20/2024 9 (L) 12 - 20 Final Urea Nitrogen (BUN) 12/20/2024 19 (H) 9 - 16 mg/dL Final Creatinine, Serum 12/20/2024 0.79 0.5 - 1.4 mg/dL Final Estimated Glomerular Filt Rate 12/20/2024 >60 Final Chronic Kidney Disease: Estimated GFR < 60 mL/min/1.39u0Kztnkc Kidney Disease: Estimated GFR < 15 mL/min/1.73m2 Glucose 12/20/2024 96 60 - 115 mg/dL Final Calcium 12/20/2024 9.2 8.4 - 10.2 mg/dL Final Bilirubin, Total 12/20/2024 0.2 0.0 - 1.0 mg/dL Final Aspartate Amino Transferase 12/20/2024 21 5 - 31 U/L Final Alanine Aminotransferase 12/20/2024 7 0 - 31 U/L Final Total Protein 12/20/2024 6.7 6.5 - 8.0 g/dL Final Albumin Level 12/20/2024 3.2 (L) 3.5 - 5.0 g/dL Final Alkaline Phosphatase 12/20/2024 100 39 - 117 U/L Final Lipase 12/20/2024 26 8 - 78 U/L Final documented in this encounter Plan of Treatment Upcoming Encounters Date Type Department Care Team (Late st Contact Info) Description 01/31/2025 11:00 AM EST Office Visit [facility] [address] [place] [address] April Dave ANP [address] [place] [address] Scheduled Referrals Name Type Priority Associated Diagnoses Orde r Schedule Referral to Cardiology Outpatient Referral Routine Diabetic nephropathy associated with type 2 diabetes mellitus (CMS/HCC) Essential hypertension Obstructive sleep apnea syndrome Hyperthyroidism Iron deficiency anemia, unspecified iron deficiency anemia type Chronic obstructive pulmonary disease, unspecified COPD type (CMS/HCC) Expected: 12/27/2024 (Approximate), Expires: 12/27/2025 documented as of this encounter Visit Diagnoses Diagnosis Diabetic nephropathy associated with type 2 diabetes mellitus (HCC)- Primary Essential hypertension Unspecified essential hypertension Obstructive sleep apnea syndrome Obstructive sleep apnea (adult) (pediatric) Hyperthyroidism Thyrotoxicosis without mention of goiter or other cause, without mention of thyrotoxic crisis or storm Iron deficiency anemia, unspecified iron deficiency anemia type Chronic obstructive pulmonary disease, unspecified COPD type (CMS/HCC) (HCC) documented in this encounter Additional Health Concerns Assessment Noted Time PHQ-9 Depression Total Score: 1 12/31/19 24 10:03 AM EDT documented as of this encounter Care Teams Primer Inserting Machine Adjuster Relationship Specialty Start Date End Date April Dave ANP [address] [place] [address] PCP - General Family Medicine 11/16/20 Eduarda Krishnan MD [address] [place] [address] Hematology and Oncology 06/01/[address] [place] [address] Drive 3rd [place] [address] 06/01/24 documented as of this encounter
--- OUTSIDE RECORDS SUMMARY | 2024-12-28 15:03 | XMS_ITS | Clinical Summary ---
Author Organization [facility] Address [address] [place] [address] Phone Care Team Providers Care Wrist Liner Name Role Phone Unavailable Primary Care Provider [...] file Medical Devices Not on file Insurance [facility] CARE MEDICARE REPLACEMENT YUDITH [employer]IVERS [id number] [facility] CARE MEDICARE REPLACEMENT CARE MEDICARE REPLACEMENT [facility] CARE MEDICARE REPLACEMENT CARE MEDICARE REPLACEMENT MEDICARE REPLACEMENT CARE MEDICARE [place] [address] [place] [address] CARE MEDICARE REPLACEMENT Additional Source Comments The information contained in this document represents components of the legal health record. It is not the complete legal health record.[facility]
--- OUTSIDE RECORDS SUMMARY | 2024-12-28 15:04 | XMS_ITS | Encounter Summary ---
Author Organization [employer] Address 75 [facility] 7t [place] [address] Care Team Providers Care Shank Carrier Name Role Phone April Dave Primary Care Provider Eduarda Krishnan MD Unavailable [phone] June Unavailable Reason for Visit * Reason Comments Med Refill Encounter Details Date Type Department Care Team (Late st Contact Info) Description 01/05/2023 Refill [facility]INE [address] [place] [address] April Dave ANP [address] [place] [address] Depressive disorder Social History Tobacco Use Types [...] Description 01/31/2025 11:00 AM EST Office Visit [facility] [address] [place] [address] April Dave ANP [address] [place] [address] documented as of this encounter Visit Diagnoses Diagnosis Depressive disorder Depressive disorder, not elsewhere classified documented in this encounter Care Teams Shank Carrier Relationship Specialty Start Date End Date April Dave ANP [address] [place] [address] PCP - General Family Medicine 11/16/20 Eduarda Krishnan MD [address] [place] [address] Hematology and Oncology 06/01/[address] [place] [address] 3rd [place] [address] 06/01/24 documented as of this encounter
--- OUTSIDE RECORDS SUMMARY | 2024-12-28 15:04 | XMS_ITS | Encounter Summary ---
Author Organization [employer] Address 75 [facility] 7t [place] [address] Care Team Providers Care Rotary Driller Prospecting Name Role Phone April Dave Primary Care Provider [phone] Eduarda Krishnan MD Unavailable [phone] June Unavailable Encounter Details Date Type Department Care Team (Late st Contact Info) Description 10/09/2023 Orders Only [facility] [address] [place] [address] ProviderRubina MD Social History Tobacco Use Types [...] 11:00 AM EST Office Visit [facility] [address] [place] [address] April Dave ANP [address] [place] [address] documented as of this encounter Procedures Procedure Name Priority Date/Time Associated Diagnosis Comments HM COLONOSCOPY Routine 09/05/2021 11:04 AM EDT documented in this encounter Results * Hm Colonoscopy (09/05/2021 11:04 AM EDT) us Historical Provider HEALTH MAINTENANCE Final Result documented in this encounter Visit Diagnoses Not on filedocumented in this encounter Care Teams Rotary Driller Prospecting Relationship Specialty Start Date End Date April Dave ANP [address] [place] [address] PCP - General Family Medicine 11/16/20 Eduarda Krishnan MD [address] [place] [address] Hematology and Oncology 06/01/24June [address] 3rd [place] [address] 06/01/24 documented as of this encounter
--- OUTSIDE RECORDS SUMMARY | 2024-12-28 15:04 | XMS_ITS | Encounter Summary ---
Author Organization [employer] Address 75 [facility] 7t [place] [address] Care Team Providers Care Electroneurodiagnostic Technologist Name Role Phone April Dave Primary Care Provider [phone] Eduarda Krishann MD Unavailable [phone] June Unavailable Reason for Visit * Reason Onset Date Comments FYI 03/11/2023 Encounter Details Date Type Department Care Team ([facility] st Contact Info) Description 03/11/2023 Telephone [facility]INE [address] [place] [address] April Dave ANP [address] [place] [address] FYI Social History Tobacco Use Types Packs/Day [...] - 03/11/2023 1:30 PM EST Tc from [facility] with [facility] pulmonology advising PCP, pt preferred [facility] and is booked for 04/29 @ 2:45 PM. documented in this encounter Plan of Treatment Upcoming Encounters Date Type Department Care Team (Late st Contact Info) Description 01/31/2025 11:00 AM EST Office Visit [facility] MED[facility]INE [address] [place] [address] April Dave ANP [address] [place] [address] documented as of this encounter Visit Diagnoses Not on filedocumented in this encounter Care Teams Electroneurodiagnostic Technologist Relationship Specialty Start Date End Date April Dave ANP [address] [place] [address] PCP - General Family Medicine 11/16/20 Eduarda Krishnan MD [address] [place] [address] Hematology and Oncology 06/01/24June [address] 3rd [place] [address] 06/01/24 documented as of this encounter
--- OUTSIDE RECORDS SUMMARY | 2024-12-28 15:04 | XMS_ITS | Encounter Summary ---
Author Organization [employer] Address 75 [facility] 7t [place] [address] Care Team Providers Care Ms Sql Server Developer Name Role Phone April Dave Primary Care Provider [phone] Eduarda Krishnan MD Unavailable [phone] June Unavailable Reason for Visit * Reason Comments Med Refill Encounter Details Date Type Department Care Team (Late st Contact Info) Description 06/09/2023 Refill [facility] MEDICINE [address] [place] [address] April Dave ANP [address] [place] [address] Diabetic nephropathy associated with type 2 diabetes [...] Patient states she sees Temitope Rico at [facility] and has a follow-up on 06/30/23. She is not sure whether/when a colonoscopy will be recommended. She states she will pickling grader folic acid supplement and ropinirole from pharmacy [...] and/or other concerns arise. TC placed to [facility] pharmacy and they stated they were [...] Office Visit [facility] MEDICINE [address] [place] [address] April Dave ANP [address] [place] [address] documented as of this encounter Visit Diagnoses Diagnosis Diabetic nephropathy associated with type 2 diabetes mellitus (HCC) documented in this encounter Care Teams Ms Sql Server Developer Relationship Specialty Start Date End Date April Dave ANP [address] [place] [address] PCP - General Family Medicine 11/16/20 Eduarda Krishnan MD [address] [place] [address] Hematology and Oncology 06/01/24[address]rd [place] [address] 06/01/24 documented as of this encounter
--- OUTSIDE RECORDS SUMMARY | 2024-12-28 15:04 | XMS_ITS | Encounter Summary ---
Author Organization [employer] Address 75 [facility] 7t [place] [address] Care Team Providers Care Shoe Clerk Name Role Phone April Dave Primary Care Provider [phone] Eduarda Krishnan MD Unavailable [phone] June Unavailable Reason for Visit * Reason Onset Date Comments Pre-op Exam 09/08/2024 Encounter Details Date Type Department Care Team (Late st Contact Info) Description 09/08/2024 Telephone [facility] [address] [place] [address] April Dave ANP [address] [place] [address] Pre-op Exam Social History Tobacco Use Types [...] - 09/08/2024 10:31 AM EDT [place] at [facility] agreed to pre op appointment on 09/23/24 at 2PM. Appointment reminder letter mailed * Telephone Encounter - Gwen Mckenzie - 09/08/2024 9:32 AM EDT Date of Surgery: 10/21/2024 Surgical procedure being done: left shoulder arthroscopy Type of anesthesia: General Lab needed: Yes EKG: Yes Surgeon's name: [facility] Facility name: [facility] Surgeon's office number: [phone] Surgeon's office fax number: [phone] Contact name (person you spoke with): [place] Last office note from surgeon requested: Yes Send Message to Jerri Holt and Serg Almanza documented in this encounter Plan of Treatment Upcoming Encounters Date Type Department Care Team ([facility] Contact Info) Description 01/31/2025 11:00 AM EST Office Visit [facility] [address] [place] [address] April Dave ANP [address] [place] [address] documented as of this encounter Visit Diagnoses Not on filedocumented in this encounter Additional Health Concerns Assessment Noted Time PHQ-9 Depression Total Score: 1 12/31/19 24 10:03 AM EDT documented as of this encounter Care Teams Shoe Clerk Relationship Specialty Start Date End Date April Dave ANP [address] [place] [address] PCP - General Family Medicine 11/16/20 Eduarda Krishnan MD [address] [place] [address] Hematology and Oncology 06/01/24 Trisha Temitope [address] [place] [address] 3rd [place] [address] 06/01/24 documented as of this encounter
--- OUTSIDE RECORDS SUMMARY | 2024-12-28 15:04 | XMS_ITS | Encounter Summary ---
Author Organization [employer] Address [address] [place] [address] [place], [place] [address] Care Team Providers Care Color Laboratory Technician Name Role Phone April Dave Primary Care Provider [phone] Eduarda Krishnan MD Unavailable [phone] June Unavailable Encounter Details Date Type Department Care Team (Late st Contact Info) Description 02/28/2022 Orders Only [facility] [address] [place] [address] Emily Pitts, RN [address] [place] [address] Social History Tobacco Use Types Packs/Day Years [...] 01/31/2025 11:00 AM EST Office Visit [facility] MEDICINE [address] [place] [address] April Dave ANP [address] [place] [address] documented as of this encounter Visit Diagnoses Not on filedocumented in this encounter Care Teams Color Laboratory Technician Relationship Specialty Start Date End Date April Dave ANP [address] [place] [address] PCP - General Family Medicine 11/16/20 Eduarda Krishnan MD [address] [place] [address] Hematology and Oncology 06/01/24June [address] [place] [address] 3rd [place] [address] 06/01/24 documented as of this encounter
--- OUTSIDE RECORDS SUMMARY | 2024-12-28 15:04 | XMS_ITS | Clinical Summary ---
Author Organization [facility] Address [address] [place] [address] [address] [place] [place] [phone] Phone Care Team Providers Care Registered Health Nurse Name Role Phone Inez Dewitt NP Primary Care Provider Allergies Active Allergy Reactions Criticality Noted Date Comments Mohamud Inhibitors Other (see comments) 03/28/2010 Albuterol Shortness of breath High 05/15/2022 Not all albuterol Hydrocodone 03/28/2010 Hydrocodone-Acetaminop hen Other (see comments) 01/28/2021 Other Reaction(s): Not available Tramadol Other (see comments) 03/25/2022 Per note in preferred pharmacy (2019), patient reported tramadol use to seizure Medications topiramate (TOPAMAX) 100 MG tablet TAKE [...] by mouth 2 Active UltiCare Mini Pen [place] 31G X 6 MM misc USE FOUR [...] Active Problems Problem Noted Date Diagnosed Date Chronic kidney disease, stage 2 (mild) 5 Tachycardia 08/02/2024 Nicotine dependence, cigarettes, uncomplicated 0 [...] Essential hypertension 02/23/2012 Migraine 02/23/2012 Obese 02/23/2012 Encounters Date Type Department Care Team Description 12/26/2024 2:15 PM EDT Office Visit [facility] [address] [place] [address] Alan Nash MD Chronic kidney disease, stage 2 (mild) (Primary Dx); Essential hypertension; Renal disorder due to type 2 diabetes mellitus <Diabetic nephropathy> (HCC) from Last 3 Months Immunizations Immunization Administration [...] oz) 12/26/2024 2:34 P M EDT Height 147.3 cm (4' 10 ) 09/25/2022 4:43 PM EDT Body Mass Index 24.16 09/25/2022 4:43 PM EDT Plan of Treatment Upcoming Encounters Date Type Department Care Team (Late st Contact Info) Description 01/01/2026 1:00 PM EDT Office Visit [facility] [address] [place] [address] Alan Nash MD [address] [facility] [address] [place] [address] Health Maintenance Due Date Last Done Comments Breast Cancer Screening 1960 Colorectal Cancer Screening: Annual FOBT 2009 Colorectal Cancer Screening: Colonoscopy 2009 Colorectal Cancer Screening: Sigmoidoscopy 2009 Diabetes: Ophthalmology Exam 04/29/2020 Diabetes: Pedal Pulse Checked 04/29/2020 Diabetes: Sensory Foot Exam 04/29/2020 Diabetes: Visual Foot Exam 04/29/2020 Influenza Vaccine (#1) 2024 3, 03/04/2021, 02/07/2020, Additional history exists Diabetes: Hemoglobin A1C 01/25/20252 025, 04/22/2024, 12/31/2023, Additional history exists Hepatitis B Vaccine Aged Out 08/17/2017, 02/03/2017, 09/24/2016, Additional history exists No longer eligible based on patient's age to complete this topic Pneumococcal Vaccine: 50+ Years Completed 07/01/2023, 11/07/2014, 07/27/2014, Additional history exists Pneumococcal Vaccine: Peds (0 to 5 Years) and At-Risk Patients (6 to 49 Years) Discontinued 07/01/2023, 11/07/2014, 07/27/2014, Additional history exists Insurance [facility] ([id number]) YUDITH [employer]IVERS [id number] [facility] ([id number]) [employer] [id number] Care Teams Registered Health Nurse Relationship Specialty Start Date End Date Inez Dewitt NP [address] [place] [address] PCP - General 04/09/20
== END 2024-12-28 14:58 | disposition home or self-care (01) ==
LOC: HO.HPS 13:49
PROVIDERS: PCP Nurse Practitioner Primary Care; Visit Provider Internal Medicine
DX: J44.9 Chronic obstructive pulmonary disease, unspecified (principal); F17.210 Nicotine dependence, cigarettes, uncomplicated
CPT/HCPCS: 94010; 99203

== ENCOUNTER → 2024-12-28 13:48 | Outpatient (BNVA) | payer OTHER, SELFPAY | PROVIDERS: PCP Nurse Practitioner Primary Care; Visit Provider Internal Medicine | DX: J44.9 Chronic obstructive pulmonary disease, unspecified (principal); F17.210 Nicotine dependence, cigarettes, uncomplicated | CPT/HCPCS: 94010; 99202 ==

== ENCOUNTER 2024-12-30 15:35 | Outpatient (REF) | payer OTHER, SELFPAY ==
--- OUTSIDE RECORDS SUMMARY | 2024-12-26 14:15 | XMS_ITS | Encounter Summary ---
Author Organization [facility] Address [address] [phone] Phone Care Team Providers Care Barber Apprentice Name Role Phone Inez Dewitt NP Primary Care Provider [phone] Encounter Details Date Type Department Care Team (Late st Contact Info) Description 12/26/2024 2:15 PM EDT Office Visit [facility] [address] [place] [phone] Alan Nash MD [address] [phone] Chronic kidney disease, stage 2 [...] Salted Snacks such as Crackers Potato chips [place] chips Pretzels Tortilla chips Nuts Popcorn [place] seeds Homemade or low- sodium sauces and [...] Foods such as: TV Dinners Canned raviolis [place] Macaroni & Cheese Spaghetti Frozen prepared foods [...] are 1000 milligrams (mg) in 1gram. For [id number], if your diet prescription is 2 grams [...] Basil: Use with beef, pork, most vegetables. [place]: Use with beef, pork, most vegetables. [place]: [...] doctor or dietitian beforeusing and salt substitute. [place] and create your own seasoning containing those spices that you like. If you would like to become a volunteer and find out more about what's happening where you live, contact your local [facility] Affiliate. Blood pressure monitoring education: Monitor [...] Visit [facility] [address] [place] [phone] Alan Nash MD [address] [facility] [address] [place] [address] Scheduled Orders Name Type Priority Associated Diagnoses Orde r Schedule CBC and differential Lab Routine Chronic kidney disease, stage 2 (mild) Essential hypertension Renal disorder due to type 2 diabetes mellitus <Diabetic nephropathy> ([facility]) Expected: 12/26/2024, Expires: 01/25/2026 Urine Albumin / Creatinine Ratio Lab Routine Chronic kidney disease, stage 2 (mild) Essential hypertension Renal disorder due to type 2 diabetes mellitus <Diabetic nephropathy> ([facility]) Expected: 12/26/2024, Expires: 01/25/2026 Urinalysis with microscopic Lab Routine Chronic kidney disease, stage 2 (mild) Essential hypertension Renal disorder due to type 2 diabetes mellitus <Diabetic nephropathy> ([facility]) Expected: 12/26/2024, Expires: 01/25/2026 Vitamin B12 Lab Routine Chronic kidney disease, stage 2 (mild) Essential hypertension Renal disorder due to type 2 diabetes mellitus <Diabetic nephropathy> ([facility]) Expected: 12/26/2024, Expires: 01/25/2026 Free serum light [...] (HCC) documented in this encounter Care Teams Barber Apprentice Relationship Specialty Start Date End Date Inez Dewitt NP [address] [place] [id number] PCP - General 04/09/20 documented as of this encounter
--- OUTSIDE RECORDS SUMMARY | 2024-12-26 18:00 | XMS_ITS | Encounter Summary ---
Author Organization [employer] Address [address] [facility] [address] [place] [address] Care Team Providers Care Refinery Operator Assistant Name Role Phone April Dave AARON Primary Care Provider [phone] Eduarda Krishnan MD Unavailable [phone] June Unavailable Reason for Referral * Imaging (Urgent) - Authorized Specialty Diagnoses / Procedures Referred By Contac t Referred To Contact Cardiology Diagnoses Swelling of right lower extremity Procedures Vascular US lower extremity venous duplex right Herminia Ann NP [address] [place] [address] Phone: tel: fax: [address] Phone: tel: fax: Referral ID Status Reason Start Date Expiration Date Visits Requested Visits Authorized [id number] Authorized Perform Procedure 12/27/2024 12/27/2025 1 1 Encounter Details Date Type Department Care Team (Late st Contact Info) Description 12/26/2024 6:00 PM EDT Office Visit [facility] [address] [place], [place] [phone] Herminia Ann NP [address] [place], [place] [phone] Swelling of right lower extremity (Primary Dx); Anemia, unspecified type Social History Tobacco Use Types [...] Sign Reading Time Taken Comments Blood Pressure 130/61 12/26/2024 5:54 PM EDT Pulse 73 12/26/2024 5:54 PM EDT Temperature 36.4 C (97.6 F) 12/26/2024 5:54 PM EDT Respiratory Rate 24 12/26/2024 5:54 PM EDT Oxygen Saturation 98% 12/26/2024 5:54 PM EDT Inhaled Oxygen Concentration - - Weight 51.7 kg (114 lb) 12/26/2024 5:54 PM EDT Height - - Body Mass Index 23.03 10/25/2024 9:12 AM EDT documented in this encounter Patient Instructions * Patient Instructions* Herminia Ann NP - 12/26/2024 6:00 PM EDT Please advise pt to call hematology ( Dr. Krishnan) for appointment [phone] NISHI. documented in this encounter Progress Notes * Herminia Ann NP - 12/26/2024 6:00 PM EDT Images from the original note were not included. SUBJECTIVE: Vikki Willis is a 64 y.o. female who presents to the [facility] [place] for a sick visit. Denies recent illness, injury, or hospitalization. Sister on the phone HPI Vikki complains of right foot swelling that extends up her leg. She is unable to pinpoint specific cause. Denies recent trauma, surgery, travel, prolonged lying or sitting or fall. Informs she saw Dr. Nash today and he expressed concern about her anemia. Requesting to have blood work completed. Review of Systems Constitutional: Negative. Negative for chills and fever. Respiratory: Negative for chest tightness and shortness of breath. Cardiovascular: Positive for leg swelling. Negative for chest pain. Gastrointestinal: Negative for abdominal pain, constipation, diarrhea and nausea. Genitourinary: Negative for dysuria. Musculoskeletal: Negative for arthralgias, back pain, myalgias and neck pain. Skin: Negative. Negative for rash and wound. Neurological: Negative for weakness, light-headedness and headaches. Psychiatric/Behavioral: Negative for behavioral problems, confusion, decreased concentration and suicidal ideas. OBJECTIVE: Visit Vitals BP 130/61 (BP Location: Left arm, Patient Position: Sitting, BP Cuff Size: Adult) Pulse 73 Temp 97.6 ??F (36.4 ??C) (Temporal) Resp 24 Wt 114 lb (51.7 kg) SpO2 98% BMI 23.03 kg/m?? OB Status Postmenopausal Smoking Status Every Day BSA 1.47 m?? Problem List[1] Physical Exam Vitals reviewed. Constitutional: General: She is not in acute distress. Appearance: Normal appearance. She is not ill-appearing. HENT: Head: Normocephalic and atraumatic. Right Ear: External ear normal. Left Ear: External ear normal. Nose: Nose normal. Eyes: General: No scleral icterus. Extraocular Movements: Extraocular movements intact. Cardiovascular: Rate and Rhythm: Normal rate and regular rhythm. Pulses: Dorsalis pedis pulses are 2+ on the right side. Posterior tibial pulses are 1+ on the right side. Heart sounds: Normal heart sounds. Pulmonary: Effort: Pulmonary effort is normal. No respiratory distress. Breath sounds: Normal breath sounds. Musculoskeletal: General: Normal range of motion. Cervical back: Normal range of motion. Right lower leg: No tenderness. 1+ Edema present. Left lower leg: Normal. Right foot: Normal range of motion and normal capillary refill. Swelling and tenderness present. Normal pulse. Comments: Leg circ @tibial tuberosity: right 12.5 in; left 13 in Feet: Right foot: Skin integrity: Dry skin (swelling) present. No erythema. Toenail Condition: Right toenails are abnormally thick. Neurological: General: No focal deficit present. Mental Status: She is alert and oriented to person, place, and time. Gait: Gait normal. Psychiatric: Mood and Affect: Mood normal. Behavior: Behavior normal. Assessment/Plan Diagnoses and all orders for this visit: Swelling of right lower extremity Comments: -patient presenting with unilateral leg swelling of leg and foot -no erythema or warmth noted on palpation of limb -discussed probable causes to include chronic venous insufficiency however, DVT is also probable based on Wells score 1 indicating moderate risk for DVT. Will obtain US to rule out deep or superficial vein thrombosis -recommend limb elevation -will obtain DME for compression stocking 20-30 mmHg pressure gradient -return to clinic/ED with increased swelling, erythema, shortness of breath Orders: - Vascular US lower extremity venous duplex right; Future Anemia, unspecified type Comments: -discussed results of recent H&H along with PCP recommendation to call Hematology for further intervention. patient is provided contact information for Dr. 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 Restless legs Seizure disorder (CMS/HCC) Transient cerebral ischemia Vitamin D deficiency Diabetic nephropathy associated with type 2 diabetes mellitus (CMS/HCC) Benign hypertensive renal disease Renal osteodystrophy Stage 3 chronic kidney disease (CMS/HCC) Dysthymia Dissociative convulsions Gastroesophageal reflux disease Iron deficiency anemia, unspecified Cigarette nicotine dependence without complication Recurrent pain of right knee Continuous severe abdominal pain Tachycardia Acute dyspnea COPD exacerbation (CMS/HCC) Hyperthyroidism documented in this encounter Plan of Treatment Upcoming Encounters Date Type Department Care Team (Late st Contact Info) Description 01/31/2025 11:00 AM EST Office Visit [facility] [address] [place] [address] April Dave ANP [address] [place] [address] documented as of this encounter Visit Diagnoses Diagnosis Swelling of right lower extremity- Primary Anemia, unspecified type documented in this encounter Additional Health Concerns Assessment Noted Time PHQ-9 Depression Total Score: 1 12/31/19 24 10:03 AM EDT documented as of this encounter Care Teams Refinery Operator Assistant Relationship Specialty Start Date End Date April Dave ANP [address] [place] [address] PCP - General Family Medicine 11/16/20 Eduarda Krishnan MD [address] [place] [id number] Hematology and Oncology 06/01/24June [address] [place] [address] Drive 3rd [place] [address] 06/01/24 documented as of this encounter
--- NOTE | ~2024-12-30 | US_ITS ---
EXAMINATION: US TRIPLEX LOWER EXTREMITY, RIGHT CLINICAL INFORMATION: Right lower extremity edema COMPARISON: 06/24/2018 TECHNIQUE: Color-flow triplex imaging with spectral analysis and compression Doppler were performed on the right lower extremity. FINDINGS: Respiratory variation, normal compression and augmented flow are noted throughout the right lower extremity. The visualized common femoral vein, superficial femoral vein, profunda femoral vein, popliteal vein and midcalf peroneal and posterior tibial venous segments show no evidence of deep venous thrombosis. There is increased pulsatility of the right common femoral vein compared to the left. US/US venous duplex LE RT IMPRESSION: No evidence of deep venous thrombosis involving the right lower extremity. Increased pulsations are demonstrated in the waveform of the right common femoral vein. This is a change when compared with 2019. If there has been previous right inguinal catheterization, AV fistula is not entirely ruled out. Electronically signed by: Luis Foster MD 12/30/2024 04:42 PM EDT
--- OUTSIDE RECORDS SUMMARY | 2024-12-30 15:37 | XMS_ITS | Encounter Summary ---
Author Organization [employer] Address 75 [facility] 7 [place] [address] Care Team Providers Care Whiskey Regauger Name Role Phone April Dave Primary Care Provider [phone] Eduarda Krishnan MD Unavailable [phone] June Unavailable Reason for Referral * Consultation (Routine) - Authorized Specialty Diagnoses / Procedures Referred By Contac t Referred To Contact Cardiology Diagnoses Diabetic nephropathy associated with type 2 diabetes mellitus (HCC) Essential hypertension Obstructive sleep apnea syndrome Hyperthyroidism Iron deficiency anemia, unspecified iron deficiency anemia type Chronic obstructive pulmonary disease, unspecified COPD type (CMS/HCC) (HCC) April Dave ANP [address] [place] [address] Phone: tel: fax: Nba Bernstein MD [address] [place] [address] Phone: tel: fax: Referral ID Status Reason Start Date Expiration Date Visits Requested Visits Authorized [id number] Authorized Specialty Services Required 12/27/2024 12/27/2025 1 1 Scheduling Instructions Pt no showed x 3 to [facility] cards, needs to be sent elsewhere. thanks Encounter Details Date Type Department Care Team (Late st Contact Info) Description 12/27/2024 Orders Only [facility] [address] [place] [address] April Dave ANP [address] [place] [address] Diabetic nephropathy associated with type 2 diabetes mellitus ([facility]/HCC) (Primary Dx); Essential hypertension; Obstructive sleep apnea [...] PM EDT Pt has no-showed to multiple [facility] cards appts scheduled for pre-op evaluation for L shoulder arthroscopy at [facility] ortho. PMH incl diabetes, hypertension, hyperlipidemia, nephropathy, [...] 181 ng/dL Final THIS TEST WAS PERFORMED AT:[facility] [address] [id number] WU MD T3, Free 12/20/2024 5.3 (A) 2.3 - 4.2 pg/mL Final THIS TEST WAS PERFORMED AT:[facility] [address] [id number] WU MD Office Visit on 12/20/2024 Component [...] Chronic Kidney Disease: Estimated GFR < 60 mL/min/1.49f9Dptgsa Kidney Disease: Estimated GFR < 15 mL/min/1.73m2 [...] 11:00 AM EST Office Visit [facility] [address] [place] [address] April Dave ANP [address] [place] [address] Scheduled Referrals Name Type Priority Associated Diagnoses [...] documented as of this encounter Care Teams Whiskey Regauger Relationship Specialty Start Date End Date April Dave ANP [address] [place] [address] PCP - General Family Medicine 11/16/20 Eduarda Krishnan MD [address] [place] [address] Hematology and Oncology 06/01/24 [address] Tem[address]ope [address] [place] [address] Drive 3rd [place] [address] 06/01/24 documented as of this encounter
--- OUTSIDE RECORDS SUMMARY | 2024-12-30 15:37 | XMS_ITS | Patient Health Record ---
Author Organization [facility] Address [address] [place] [id number] Care Team Providers Care Senior Asp Net Developer Name Role Phone Jose Cruz Unavailable [phone] Reason For Referral No Information Plan Of Treatment No Information
--- OUTSIDE RECORDS SUMMARY | 2024-12-30 15:37 | XMS_ITS | Encounter Summary ---
Author Organization [employer] Address [address] [facility] [address] [place] [address] Care Team Providers Care Placement Assistant Name Role Phone April Dave AARON Primary Care Provider [phone] Eduarda Krishnan MD Unavailable [phone] June Unavailable Reason for Visit * Reason Onset Date Comments DME compression stockings 12/30/2024 Encounter Details Date Type Department Care Team (Late st Contact Info) Description 12/30/2024 Telephone [facility] [address] [place] [address] Herminia Ann NP [address] [place] [address] DME compression stockings Social History Tobacco Use Types Packs/Day Years [...] encounter Miscellaneous Notes * Telephone Encounter - Tiny Bee MA - 12/30/2024 11:50 AM EDT DME RX for Compression stockings generated and placed on providers desk for signature. Appram. documented in this encounter Plan of Treatment Upcoming Encounters Date Type Department Care Team (Late st Contact Info) Description 01/31/2025 11:00 AM EST Office Visit [facility] [address] [place] [address] April Dave ANP [address] [place] [address] documented as of this encounter Visit Diagnoses Not on filedocumented in this encounter Additional Health Concerns Assessment Noted Time PHQ-9 Depression Total Score: 1 12/31/19 24 10:03 AM EDT documented as of this encounter Care Teams Placement Assistant Relationship Specialty Start Date End Date April Dave ANP [address] [place] [address] PCP - General Family Medicine 11/16/20 Eduarda Krishnan MD [address] [place] [address] Hematology and Oncology 06/01/24June [address] [place] [address] 3rd [place] [address] 06/01/24 documented as of this encounter
--- OUTSIDE RECORDS SUMMARY | 2024-12-30 15:37 | XMS_ITS | Encounter Summary ---
Author Organization [facility] Address [address] [facility] [address] [place] [address] Phone Care Team Providers Care Quality Lab Technician Name Role Phone Unavailable Primary Care Provider Unavailabl e Encounter Details Date Type Department Care Team (Latest Contact Info) Description 06/25/2018 Ancillary Orders [facility] [address] [place] [address] [place] [address] Nba Bernstein, [address] [address] Chest pain, unspecified type Social History Tobacco [...] It is not the complete legal health record.[facility]
--- OUTSIDE RECORDS SUMMARY | 2024-12-30 15:37 | XMS_ITS | Encounter Summary ---
Author Organization [employer] Address [address] [facility] [address], [place] [address] Care Team Providers Care Medical Coding Specialist Name Role Phone April Dave Primary Care Provider [phone] Eduarda Krishnan MD Unavailable [phone] June Unavailable Reason for Referral * Consultation (Urgent) - Authorized Specialty Diagnoses / Procedures Referred By Contac t Referred To Contact Hematology and Oncology Diagnoses Anemia, unspecified type April Dave ANP [address] [place] [address] Phone: tel: fax: [facility] Referral ID Status Reason Start Date Expiration Date Visits Requested Visits Authorized [id number] Authorized Specialty Services Required 12/30/2024 12/30/2025 1 1 Encounter Details Date Type Department Care Team (Late st Contact Info) Description 12/30/2024 Orders Only [facility] [address] [place] [address] April Dave ANP [address] [place] [address] Anemia, unspecified type (Primary Dx) Social History Tobacco Use Types Packs/Day Years [...] encounter Progress Notes * AARON Linares - 12/30/2024 1:43 PM EDT Pt needs new referral for evaluation w/ hematology, referred 07/2024 and did not follow-up She has persistent chronic anemia Difficulty w/ follow-up but did see GI 08/24/24 Last c-scope 2021 = TA, repeat 5 years Lab Results Component Value Date WBC 5.8 08/12/2024 HGB 8.7 (L) 12/20/2024 HGB 9.6 (L) 08/12/2024 HGB 9.6 (L) 08/02/2024 HGB 8.6 (L) 03/15/2024 HGB 8.6 (L) 03/14/2024 HGB 9.2 (L) 02/03/2024 HCT 27.3 (L) 12/20/2024 HCT 30.4 (L) 08/12/2024 HCT 30.1 (L) 08/02/2024 HCT 26.6 (L) 03/15/2024 HCT 26.5 (L) 03/14/2024 HCT 26.9 (L) 02/03/2024 MCV 85.2 08/12/2024 PLT 144 (L) 08/12/2024 PLT 131 (L) 08/02/2024 PLT 193 03/15/2024 PLT 173 02/03/2024 PLT 182 02/01/2024 PLT 151 (L) 01/04/2024 FE 53 08/02/2024 Patient Active Problem List Diagnosis Allergic rhinitis Constipation Depressive disorder Essential hypertension Hyperlipidemia Moderate persistent asthma Obstructive sleep apnea syndrome 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 Restless legs Seizure disorder (CMS/HCC) (HCC) Transient cerebral ischemia Vitamin D deficiency Diabetic nephropathy associated with type 2 diabetes mellitus (HCC) Benign hypertensive renal disease Renal osteodystrophy Stage 3 chronic kidney disease (CMS/HCC) (HCC) Dysthymia Dissociative convulsions Gastroesophageal reflux disease Iron deficiency anemia, unspecified Cigarette nicotine dependence without complication Recurrent pain of right knee Continuous severe abdominal pain Tachycardia Acute dyspnea COPD exacerbation (CMS/HCC) (HCC) Hyperthyroidism documented in this encounter Plan of Treatment Upcoming Encounters Date Type Department Care Team (Late st Contact Info) Description 01/31/2025 11:00 AM EST Office Visit [facility] [address] [place] [address] April Dave ANP [address] [place] [address] Scheduled Referrals Name Type Priority Associated Diagnoses Orde r Schedule Referral to Hematology / Oncology Outpatient Referral Urgent Anemia, unspecified type Expected: 12/30/2024 (Approximate), Expires: 12/30/2025 documented as of this encounter Visit Diagnoses Diagnosis Anemia, unspecified type- Primary documented in this encounter Additional Health Concerns Assessment Noted Time PHQ-9 Depression Total Score: 1 12/31/19 24 10:03 AM EDT documented as of this encounter Care Teams Medical Coding Specialist Relationship Specialty Start Date End Date April Dave ANP [address] [place] [address] PCP - General Family Medicine 11/16/20 Eduarda Krishnan MD [address] [place] [address] Hematology and Oncology 06/01/[address] [place] [address] 3rd [place] [address] 06/01/24 documented as of this encounter
--- OUTSIDE RECORDS SUMMARY | 2024-12-30 15:37 | XMS_ITS | Clinical Summary ---
Author Organization [facility] Address [address] [place] [address] Phone Care Team Providers Care Instrumentation Fitter Name Role Phone Unavailable Primary Care Provider [...] file Medical Devices Not on file Insurance [facility] ONE CARE MEDICARE REPLACEMENT YUDITH RIVERS [id number] [facility] CARE MEDICARE REPLACEMENT CARE MEDICARE REPLACEMENT [facility] CARE MEDICARE REPLACEMENT CARE MEDICARE REPLACEMENT MEDICARE REPLACEMENT CARE MEDICARE [place] [place] [address] CARE MEDICARE REPLACEMENT Additional Source Comments The information contained in this document represents components of the legal health record. It is not the complete legal health record.[facility]
--- OUTSIDE RECORDS SUMMARY | 2024-12-30 15:37 | XMS_ITS | Encounter Summary ---
Author Organization [employer] Address [address] [facility] 7[place] [address] Care Team Providers Care Web Administrator Name Role Phone April Dave Primary Care Provider [phone] Eduarda Krishnan MD Unavailable [phone] June Unavailable Reason for Visit * Reason Onset Date Comments Call Back Request 12/29/2024 Encounter Details Date Type Department Care Team ([facility] st Contact Info) Description 12/29/2024 Telephone [facility] [address] [place] [address] April Dave ANP [address] [place] [address] Call Back Request Social History Tobacco Use Types Packs/Day Years [...] encounter Miscellaneous Notes * Telephone Encounter - Tiana Archibald RN - 12/29/2024 2:31 PM EDT TC placed to the pt and LVM to call back the office in regards to message below. If pt calls back please advise following up with hematology at [phone] * Telephone Encounter - Noemi Erazo - 12/29/2024 10:21 AM EDT Tc from pt requesting a call back , she states that something is wrong with her blood . Denied any triage Contact pt at [phone] documented in this encounter Plan of Treatment Upcoming Encounters Date Type Department Care Team (Late st Contact Info) Description 01/31/2025 11:00 AM EST Office Visit [facility] [address] [place] [address] April Dave ANP [address] [place], [place] [phone] documented as of this encounter Visit Diagnoses Not on filedocumented in this encounter Additional Health Concerns Assessment Noted Time PHQ-9 Depression Total Score: 1 12/31/19 24 10:03 AM EDT documented as of this encounter Care Teams Web Administrator Relationship Specialty Start Date End Date April Dave ANP [address] [place] [address] PCP - General Family Medicine 11/16/20 Eduarda Krishnan MD [address] [place] [address] Hematology and Oncology 06/01/24 RicoJune [address] [facility] 3rd [place] [address] 06/01/24 documented as of this encounter
--- OUTSIDE RECORDS SUMMARY | 2024-12-30 15:37 | XMS_ITS | Encounter Summary ---
Author Organization [employer] Address [address] [facility] 7[address] [place] [address] Care Team Providers Care Career Consultant Name Role Phone April Dave AARON Primary Care Provider [phone] Eduarda Krishnan MD Unavailable [phone] June Unavailable Reason for Visit * Reason Onset Date Comments DME compression stocking 12/30/2024 Encounter Details Date Type Department Care Team (Late st Contact Info) Description 12/30/2024 Telephone [facility] [address] [place] [address] Herminia Ann NP [address] [place] [address] DME compression stocking Social History Tobacco Use Types Packs/Day Years [...] Encounter - Tiny Bee MA - 12/30/2024 2:59 PM EDT DME and RX for Compression stockings signed and faxed to [facility] . Confirmation received and sent to scan. If patient calls to check status on above, please advise them to contact [facility] at [phone]. documented in this encounter Plan of Treatment Upcoming Encounters Date Type Department Care Team (Late st Contact Info) Description 01/31/2025 11:00 AM EST Office Visit [facility] [address] [place] [address] April Dave ANP [address] [place] [address] documented as of this encounter Visit Diagnoses Not on filedocumented in this encounter Additional Health Concerns Assessment Noted Time PHQ-9 Depression Total Score: 1 12/31/19 24 10:03 AM EDT documented as of this encounter Care Teams Career Consultant Relationship Specialty Start Date End Date April Dave ANP [address] [place] [address] PCP - General Family Medicine 11/16/20 Eduarda Krishnan MD [address] [place] [address] Hematology and Oncology 06/01/24 Trisha June [address] [place] [address] Drive 3rd [place] [address] 06/01/24 documented as of this encounter
--- OUTSIDE RECORDS SUMMARY | 2024-12-30 15:37 | XMS_ITS | Encounter Summary ---
Author Organization [employer] Address [address] [facility] 7[address] [place] [address] Care Team Providers Care Cnc Machinist 2Nd Shift Name Role Phone April Dave Primary Care Provider Eduarda Krishnan MD Unavailable [phone] June Unavailable Reason for Visit * Reason Onset Date Comments Hospital Follow-up 12/16/2023 Encounter Details Date Type Department Care Team (Late st Contact Info) Description 12/16/2023 Telephone [facility] MED[facility]INE [address] [place] [address] April Dave ANP [address] [place] [address] Hospital Follow-up Social History Tobacco Use Types [...] from pt requesting a HDF appt. Hospital: [facility] Date of admission: 12/09/23 Discharge date: 12/11/23 Diagnosed: Hand Surgery documented in this encounter Plan of Treatment Upcoming Encounters Date Type Department Care Team (Late st Contact Info) Description 01/31/2025 11:00 AM EST Office Visit [facility] [address] [place] [address] April Dave ANP [address] [place] [address] documented as of this encounter Visit Diagnoses Not on filedocumented in this encounter Care Teams Cnc Machinist 2Nd Shift Relationship Specialty Start Date End Date April Dave ANP [address] [place] [address] PCP - General Family Medicine 11/16/20 Eduarda Krishnan MD [address] [place] [address] Hematology and Oncology 06/01/[address] 3rd [place] [address] 06/01/24 documented as of this encounter
--- OUTSIDE RECORDS SUMMARY | 2024-12-30 15:37 | XMS_ITS | Encounter Summary ---
Author Organization [employer] Address [address] [facility] 7[place], [place] [address] Care Team Providers Care Supervisor Polishing Name Role Phone April Dave Primary Care Provider Eduarda Krishnan MD Unavailable [phone] June Unavailable Reason for Visit * Reason Onset Date Comments Triage 08/22/2022 Encounter Details Date Type Department Care Team ([facility] st Contact Info) Description 08/22/2022 Telephone [facility] [address] [place] [address] April Dave ANP [address] [place] [address] Triage Social History Tobacco Use Types Packs/Day [...] accepted this outcome Please contact pt at [phone] documented in this encounter Plan of Treatment Upcoming Encounters Date Type Department Care Team (Late st Contact Info) Description 01/31/2025 11:00 AM EST Office Visit [facility] [address] [place] [address] April Dave ANP [address] [place] [address] documented as of this encounter Visit Diagnoses Not on filedocumented in this encounter Care Teams Supervisor Polishing Relationship Specialty Start Date End Date April Dave ANP [address] [place] [address] PCP - General Family Medicine 11/16/20 Eduarda Krishnan MD [address] [place] [address] Hematology and Oncology 06/01/24 Trisha June [address] [place] [address] 3rd [place] [address] 06/01/24 documented as of this encounter
--- OUTSIDE RECORDS SUMMARY | 2024-12-30 15:38 | XMS_ITS | Encounter Summary ---
Author Organization [employer] Address [address] [facility] 7[address] [place] [address] Care Team Providers Care Industrial Specialist Name Role Phone April Dave Primary Care Provider [phone] Eduarda Krishnan MD Unavailable [phone] June Unavailable Reason for Visit * Reason Onset Date Comments FYI 03/11/2023 Encounter Details Date Type Department Care Team ([facility] st Contact Info) Description 03/11/2023 Telephone [facility]INE [address] [place] [address] April Dave ANP [address] [place] [address] FYI Social History Tobacco Use Types Packs/Day [...] EST Tc from [facility] with [facility] pulmonology advising PCP, pt preferred [facility] and is booked for 04/29 @ 2:45 PM. documented in this encounter Plan of Treatment Upcoming Encounters Date Type Department Care Team (Late st Contact Info) Description 01/31/2025 11:00 AM EST Office Visit [facility]INE [address] [place] [address] April Dave ANP [address] [place] [address] documented as of this encounter Visit Diagnoses Not on filedocumented in this encounter Care Teams Industrial Specialist Relationship Specialty Start Date End Date April Dave ANP [address] [place] [address] PCP - General Family Medicine 11/16/20 Eduarda Krishnan MD [address] [place] [address] Hematology and Oncology 06/01/24June [address] 3rd [place] [address] 06/01/24 documented as of this encounter
--- OUTSIDE RECORDS SUMMARY | 2024-12-30 15:38 | XMS_ITS | Encounter Summary ---
Author Organization [employer] Address [address] [facility] 7t [place] [address] Care Team Providers Care Mathematics Technician Name Role Phone April Dave Primary Care Provider [phone] Eduarda Krishnan MD Unavailable [phone] June Unavailable Encounter Details Date Type Department Care Team (Late st Contact Info) Description 10/09/2023 Orders Only [facility] MED[facility] [address] [place] [address] ProviderRubina MD Social History Tobacco Use Types [...] Description 01/31/2025 11:00 AM EST Office Visit [facility] [address] [place] [address] April Dave ANP [address] [place] [address] documented as of this encounter Procedures Procedure Name Priority Date/Time Associated Diagnosis Comments HM COLONOSCOPY Routine 09/05/2021 11:04 AM EDT documented in this encounter Results * Hm Colonoscopy (09/05/2021 11:04 AM EDT) us Historical Provider HEALTH MAINTENANCE Final Result documented in this encounter Visit Diagnoses Not on filedocumented in this encounter Care Teams Mathematics Technician Relationship Specialty Start Date End Date April Dave ANP [address] [place] [address] PCP - General Family Medicine 11/16/20 Eduarda Krishnan MD [address] [place] [address] Hematology and Oncology 06/01/24June [address] 3rd [place] [address] 06/01/24 documented as of this encounter
--- OUTSIDE RECORDS SUMMARY | 2024-12-30 15:38 | XMS_ITS | Encounter Summary ---
Author Organization [employer] Address [address] [place] [address] [place] [address] Care Team Providers Care Postal Service Clerk Name Role Phone April Dave Primary Care Provider [phone] Eduarda Krishnan MD Unavailable [phone] June Unavailable Encounter Details Date Type Department Care Team (Late st Contact Info) Description 02/28/2022 Orders Only [facility] [address] [place] [address] Emily Pitts, RN [address] [place] [address] Social History Tobacco Use Types Packs/Day Years [...] 11:00 AM EST Office Visit [facility] MED[facility]INE [address] [place] [address] April Dave ANP [address] [place] [address] documented as of this encounter Visit Diagnoses Not on filedocumented in this encounter Care Teams Postal Service Clerk Relationship Specialty Start Date End Date April Dave ANP [address] [place] [address] PCP - General Family Medicine 11/16/20 Eduarda Krishnan MD [address] [place] [address] Hematology and Oncology 06/01/24June [address] [place] [address] 3rd [place] [address] 06/01/24 documented as of this encounter
--- OUTSIDE RECORDS SUMMARY | 2024-12-30 15:38 | XMS_ITS | Encounter Summary ---
Author Organization [employer] Address [address] [facility] 7[address] [place] [address] Care Team Providers Care Entertainment Dancer Name Role Phone April Dave Primary Care Provider [phone] Eduarda Krishnan MD Unavailable [phone] June Unavailable Reason for Visit * Reason Onset Date Comments Med Refill 05/27/2024 Encounter Details Date Type Department Care Team (Late st Contact Info) Description 05/27/2024 Telephone [facility] MED[facility]INE [address] [place] [address] April Dave ANP [address] [place] [address] Med Refill Social History Tobacco Use Types [...] EST Script was sent on 05/10/24 to [facility]. * Telephone Encounter - Remington Briggs - 05/27/2024 2:48 PM EST TC from pt requesting medication refill. Medications needing refill : rOPINIRole (Requip) 1 MG tablet To be sent to: [facility] - [place], [place] - [address] [facility] Pt states that she dosent have any more left. documented in this encounter Plan of Treatment Upcoming Encounters Date Type Department Care Team (Late st Contact Info) Description 01/31/2025 11:00 AM EST Office Visit [facility] MED[facility]INE [address] [place] [address] April Dave, AARON [address] [place] [address] documented as of this encounter Visit Diagnoses Not on filedocumented in this encounter Additional Health Concerns Assessment Noted Time PHQ-9 Depression Total Score: 1 12/31/19 24 10:03 AM EDT documented as of this encounter Care Teams Entertainment Dancer Relationship Specialty Start Date End Date April Dave ANP [address] [place] [address] PCP - General Family Medicine 11/16/20 Eduarda Krishnan MD [address] [place] [address] Hematology and Oncology 06/01/[address] [place] [address] 3rd [place] [address] 06/01/24 documented as of this encounter
--- OUTSIDE RECORDS SUMMARY | 2024-12-30 15:38 | XMS_ITS | Clinical Summary ---
Author Organization [employer] Address [address] [facility] 7t [place] [address] Care Team Providers Care Map And Chart Mounter Name Role Phone April Dvae AARON Primary Care Provider [phone] Eduarda Krishnan MD Unavailable [phone] June Unavailable Allergies Active Allergy Reactions [...] pain 05/05/2017 Stage 3 chronic kidney disease ([facility]/HCC) 017 Allergic rhinitis 01/05/2015 Constipation 01/05/2015 Depressive disorder 01/05/2015 Essential hypertension 01/05/2015 Hyperlipidemia 01/05/2015 Moderate persistent asthma 01/05/2015 Obstructive sleep apnea syndrome 01/05/2015 Primary osteoarthritis involving multiple joints 01/05/2015 Restless legs 01/05/2015 Seizure disorder ([facility]) 01/05/2015 Vitamin D deficiency 01/05/2015 Resolved Problems [...] Encounters Date Type Department Care Team Description 12/30/2024 Telephone [facility] [place] [address] Herminia Ann NP DME compression stocking 12/30/2024 Orders Only [facility] [address] [place] [phone] April Dave ANP Anemia, unspecified type (Primary Dx) 12/30/2024 Telephone [facility] [address] [place] [address] Herminia Ann NP DME compression stockings 12/29/2024 Telephone [facility] [address] [place] [address] April Dave ANP Call Back Request 12/27/2024 Orders Only [facility] [place] [address] April Dave ANP Diabetic nephropathy associated with type 2 diabetes mellitus ([facility]) (Primary Dx); Essential hypertension; Obstructive sleep apnea syndrome; Hyperthyroidism; Iron deficiency anemia, unspecified iron deficiency anemia type; Chronic obstructive pulmonary disease, unspecified COPD type ([facility]) 12/26/2024 6:00 PM EDT [facility] [address] [address] Herminia Ann NP Swelling of right lower extremity (Primary Dx); Anemia, unspecified type 12/20/2024 9:20 AM EDT [facility] [address] [address] James Farris MD Vomiting in adult 12/20/2024 Results Follow-Up [address] [address] April Dave ANP Hemoglobin and Hematocrit 12/20/2024 Orders Only GENERIC EXTERNAL DATA DEPARTMENT Provider, Generic External Data 12/20/2024 Travel 12/04/[address] [address] April Dave ANP Diabetic nephropathy associated with type 2 diabetes mellitus ([facility]) 11/29/[address] [address] April Dave ANP November recall 11/22/[address] [address] April Dave ANP Iron deficiency anemia, unspecified iron deficiency anemia type 11/16/[address] [address] April Dave ANP pre op 11/11/[address] [address] Isa Thompson DO 11/10/2024 3:40 PM EDT [facility] [address] [address] Isa Thompson DO Labial irritation (Primary Dx); Vaginal discomfort 11/01/[address] [address] Emily Pitts RN Paperwork/Forms 10/25/2024 9:15 AM EDT Office Visit [address] [address] April Dave ANP Hyperthyroidism (Primary Dx); Diabetic nephropathy associated with type 2 diabetes mellitus ([facility]); Essential hypertension; Cigarette nicotine dependence without complication 10/25/2024 Travel 10/24/2024 Telephone [facility] [address] [place] [address] April Dave ANP CHART PREP 10/19/2024 Refill [facility] [address] [place] [phone] April Dave ANP 10/12/2024 6:00 PM EDT Office Visit [facility] [address] [place] [phone] Herminia Ann NP Right upper quadrant pain (Primary Dx) 10/12/2024 Travel 10/12/2024 Refill [facility] [address] [place] [address] April Dave ANP Restless legs 10/07/2024 Orders Only [facility] [address] [place] [address] Sophia Robles MD Smoking 1/2 pack a day or less (Primary Dx); Stage 3 chronic kidney disease, unspecified whether stage 3a or 3b CKD ([facility]); Diabetic nephropathy associated with type 2 diabetes mellitus ([facility]); Transient cerebral ischemia, unspecified type; COPD exacerbation ([facility]); Hyperthyroidism 10/07/2024 Telephone [facility] [address] [place] [phone] Sophia Robles MD Referral 10/06/2024 Telephone [facility] [address] [place] [phone] April Dave ANP Call back request; Appointment Request 10/05/2024 Refill [facility] [address] [place] [phone] April Dave ANP Seizure disorder ([facility]) from Last 3 Months Immunizations Immunization Administration [...] Description 01/31/2025 11:00 AM EST Office Visit [facility] [address] [place] [address] April Dave, ANP [address] [place] [address] Health Maintenance Due Date Last Done Comments [...] 2 diabetes mellitus (CMS/HCC) POCT GLUCOSE Routine 10/25/2024 9:14 AM EDT Diabetic nephropathy associated with type 2 diabetes mellitus (CMS/HCC) HEPATIC FUNCTION PANEL Routine 11:27 AM EDT [...] Hemoglobin and Hematocrit (12/20/2024 10:24 AM EDT) Pathologist [facility] Hemoglobin 8.7(L) 12.0 - 16.0 g/dl [facility] Hematocrit 27.3(L) 37.0 - 47.0 % [facility] Blood Venous blood specimen / Unknown 12/20/2024 10:24 AM EDT 12/20/2024 11:23 AM EDT [facility] LAB BLOOD ORDERABLES Final Resul t Performing Organization Address [facility]/ZIP Co de Phone Number [facility] [address] [place] [phone] * (ABNORMAL) T3, Free (12/20/2024 10:24 AM EDT) Pathologist [facility] T3, Free 5.3(A) 2.3 - 4.2 pg/mL [facility] Comment:THIS TEST WAS PERFOR MED AT:[email or web address] [place] [address]DXMLQGENA WU MD 12/20/2024 10:2 4 AM EDT 12/20/2024 11:23 AM EDT [facility] Provider LAB BLOOD ORDERAB LES Final Result Performing Organization Address [facility]/ZIP Co de Phone Number [facility] [address] [place] [phone] * T3, Total (12/20/2024 10:24 AM EDT) Pathologist [facility] T3, Total 162 76 - 181 ng/dL [facility] Comment:THIS TEST WAS PERFOR MED AT:[email or web address] [place] [address]AVRUZGENA WU MD 12/20/2024 10:2 4 AM EDT 12/20/2024 11:23 AM EDT Generic External Data Provider LAB BLOOD ORDERAB LES Final Result Performing Organization Address [facility] [[email or web address]] Co de Phone Number [facility] [address] [place] [phone] * (ABNORMAL) TSH (12/20/2024 10:24 AM EDT) Thyroid Stimulating Hormone <0.01(L) 0.32 - 4.0 uIU/mL [facility] Comment:TSH 3rd Generation ( [facility]) 12/20/2024 10:2 4 AM EDT 12/20/2024 11:23 AM EDT Generic External Data Provider LAB BLOOD ORDERAB LES Final Result Performing Organization Address [facility] Phone Number [facility] [address] [place] [phone] * T4, Free (12/20/2024 10:24 AM EDT) Free T4 (Free Thyroxine) 1.37 0.71 - 1.85 ng/dL [facility] 12/20/2024 10:2 4 AM EDT 12/20/2024 11:23 AM EDT Generic External Data Provider LAB BLOOD ORDERAB LES Final Result Performing Organization Address [facility] de Phone Number [facility] [address] [place] [phone] * Lipase (12/20/2024 10:24 AM EDT) Only the most recent of2 resultswithin the time period is included. Lipase 26 8 - 78 U/L [facility] Blood Venous blood specimen / Unknown 12/20/2024 10:24 AM EDT 12/20/2024 11:23 AM EDT us James Farris MD LAB BLOOD ORDERABLES Final Resul t Performing Organization Address [facility]/ZIP Co de Phone Number [facility] [address] [place] [phone] * (ABNORMAL) Comprehensive Metabolic Panel (12/20/2024 10:24 AM EDT) Sodium 141 135 - 145 mmol/L [facility] Potassium 3.6 3.3 - 5.1 mmol/L [facility] Chloride 110(H) 96 - 108 mmol/L [facility] Carbon Dioxide 26 22 - 29 mmol/L [facility] Anion Gap 9(L) 12 - 20 [facility] Urea Nitrogen (BUN) 19(H) 9 - 16 mg/dL [facility] Creatinine, Serum 0.79 0.5 - 1.4 mg/dL [facility] Estimated Glomerular Filt Rate >60 [facility] Comment:Chronic Kidney Disea se: Estimated GFR < 60 mL/min/1.81k5Cvemuz Kidney Disease: Estimated GFR < 15 mL/min/1.73m2 Glucose 96 60 - 115 mg/dL [facility] Calcium 9.2 8.4 - 10.2 mg/dL [facility] Bilirubin, Total 0.2 0.0 - 1.0 mg/dL [facility] Aspartate Amino Transferase 21 5 - 31 U/L [facility] Alanine Aminotransferase 7 0 - 31 U/L [facility] Total Protein 6.7 6.5 - 8.0 g/dL [facility] Albumin Level 3.2(L) 3.5 - 5.0 g/dL [facility] Alkaline Phosphatase 100 39 - 117 U/L [facility] Blood Venous blood specimen / Unknown 12/20/2024 10:24 AM EDT 12/20/2024 11:23 AM EDT us James Farris MD LAB BLOOD ORDERABLES Final Resul t Performing Organization Address City/[facility]/ZIP Co de Phone Number [facility] [address] [place] [phone] * Influenza B (ID NOW Rapid Molecular) (12/20/2024 9:26 AM EDT) [facility] Influenza B Negative Negative, Indeterminate [facility] Swab 12/20/2024 9:26 AM EDT us James Farris MD POINT OF CARE TEST ENTER/EDIT OR DERABLES Final Result Performing Organization Address [facility] [[email or web address]] Co de Phone Number [facility] [address] [place] [phone] * Influenza A (ID NOW Rapid Molecular) (12/20/2024 9:26 AM EDT) [facility] Influenza A Negative Negative, Indeterminate [facility] Swab 12/20/2024 9:26 AM EDT us James Farris MD POINT OF CARE TEST ENTER/EDIT OR DERABLES Final Result Performing Organization Address [facility] de Phone Number [facility] [address] [place] [phone] * POCT Rapid COVID Ag (12/20/2024 9:26 AM EDT) [facility] Rapid COVID Ag Negative Swab 12/20/2024 9:26 AM EDT us James Farris MD POINT OF CARE TEST ENTER/EDIT OR DERABLES Final Result * Culture, Urine, Routine (11/10/2024 4:21 PM EDT) Urine Urine specimen obtained by clean catch procedure / Unknown 11/10/2024 4:21 PM EDT 11/10/2024 5:38 PM EDT Comment:UACC Narrative [facility] - 11/12/2024 11:53 AM EDT Urine Culture Report Result Urine Culture > 100,000 cfu/ml Urine Culture Mixed bacterial keven characteristic of Urine Culture urogenital contamination. Specimen Source: Urine clean catch Isa Donna CALHOUN LAB MICROBIOLOGY - GENERAL O RDERABLES Final Result [facility] [address] [place] [phone] * (ABNORMAL) POCT urinalysis dipstick manually [...] UA OK Urine 11/10/2024 4:19 PM EDT Isaalpa Lainezoneida POINT OF CARE TEST ENTER/SAY T ORDERABLES Final Result * (ABNORMAL) Bacterial Vaginosis (11/10/2024 3:52 PM EDT) TRICHOMONAS VAGINALIS DETECTION BY PCR NOT DETECTED Not Detect [facility] BACTERIAL VAGINOSIS DETECTION BY PCR POSITIVE(A) Negative [facility] Comment:The BV organism targ ets of [...] DETECTION BY PCR NOT DETECTED Not Detect [facility] Lyndsey glab krusei PCR NOT DETECTED Not Detect [facility] Swab Vaginal structure / Unknown 11/10/2024 3:52 PM EDT 11/10/2024 5:38 PM EDT us Isa Thompson DO LAB MICROBIOLOGY - GENERAL O RDERABLES Final Result [facility] [address] [place] [phone] * (ABNORMAL) Chlamydia/N. Gonorrhoeae RNA, TMA, Urogenitial (11/10/2024 3:52 PM EDT) CT PCR DETECTED(A) Not Detect. [facility] Comment:Detected results may be observed after [...] ordering clinician orclinical facility to [facility] required by state law. NG PCR NOT DETECTED Not Detect. [facility] Comment:A not detected test result does [...] O RDERABLES Final Result Performing Organization Address City/[facility]/ZIP Co de Phone Number [facility] [address] [place] [phone] * POCT HGB A1C (10/25/2024 9:15 AM EDT) Hemoglobin A1C 5.4 4.0 - 5.7 % QC Media Lot # [id number] Lot# Expiration Date [id number] Blood 10/25/2024 9:15 AM EDT April WALKER POINT OF CARE TEST ENTER/EDIT OR DERABLES Final Result * POCT Glucose (10/25/2024 9:14 AM EDT) Glucose Blood, POC 126 60 - 200 mg/dL [employer] Media Lot # [id number] Lot# Expiration Date [id number] Blood Capillary blood specimen / Unknown 10/25/2024 9:14 AM EDT April WALKER POINT OF CARE TEST ENTER/EDIT OR DERABLES Final Result * Amylase (10/13/2024 11:27 AM EDT) Amylase 39 28 - 100 U/L [facility] Blood Venous blood specimen / Unknown 10/13/2024 11:27 AM EDT 10/13/2024 12:53 PM EDT Herminia Ann NP LAB BLOOD ORDERABLES Final Resu lt [facility] [address] [place] [phone] * (ABNORMAL) Hepatic Function Panel (10/13/2024 11:27 AM EDT) Bilirubin, Total 0.3 0.0 - 1.0 mg/dL [facility] Bilirubin, Direct 0.1 0.0 - 0.5 mg/dL [facility] Aspartate Amino Transferase 18 5 - 31 U/L [facility] Alanine Aminotransferase 12 0 - 31 U/L [facility] Total Protein 7.0 6.5 - 8.0 g/dL [facility] Albumin Level 3.6 3.5 - 5.0 g/dL [facility] Alkaline Phosphatase 121(H) 39 - 117 U/L [facility] Blood Venous blood specimen / Unknown 10/13/2024 11:27 AM EDT 10/13/2024 12:53 PM EDT Herminia Ann NP LAB BLOOD ORDERABLES Final Resu lt [facility] [address] [place] [phone] * HPV DNA, Low/High Risk (06/27/2024 9:44 AM EDT) HPV High Risk Negative Negative [facility] HPV Genotype 16 Negative Negative [facility] HPV Genotype 18 Negative Negative [facility] Comment:HPV testing performe d at [facility] (CLIA#[id number]), [address] [place] [address].Testing for HPV was performed using the [place] [...] Luciano Olguin CNM LAB BLOOD ORDERABLES Lali braden Result [facility] [address] [place] [phone] * Pap Smear (06/27/2024 9:44 AM EDT) Swab Cervix uteri structure / Unknown 06/27/2024 9:44 AM EDT 06/28/2024 6:00 AM EDT Narrative [facility] - 06/30/2024 9:34 AM EDT ----- ------- Name: Vikki Willis Age/Sex: 64/F : 1960 Unit#: [id number] Attend Dr: LUCIANO OLGUIN CNM Re06/27/24 Status: DEP [facility] ----- ------- SPEC : [id number] RECD: 06/28/24 STATUS: TREVER AHIR NUM: [id number] MONICA: 06/27/24-[address]: LUCIANO OLGUIN CNM ENTERED: 06/28/24 SP TYPE: Pap Smr OT DR: ORDERED: Pap Smear Interpretation Satisfactory for evaluation. Negative for intraepithelial lesion or malignancy. HPV High Risk: Negative HPV Genotyping 16: Negative HPV Genotyping 18: Negative Clinical Information LMP:Post menopausal Previous PAP test:Unknown date/findings Material Received ThinPrep-Cervical ----- ------- Signed (signature on file) BENJAMÍN Chung (ASCP) 06/30/24 0934 ----- ------- END OF REPORT Luciano TIERNEY LAB CYTOLOGY ORDERABLES F inal Result [facility] [address] [place] [phone] * Colonoscopy (09/05/2021 11:04 AM EDT) Historical Provider [...] DIGITAL UBALDO SCR MAMMO 1 Inez Dewitt CORRUGATOR SUPERVISOR IMG BI PROCEDURES Final Result from Last 3 Months or Most Recently Relevant to Health Maintenance Insurance [facility] ONE CARE < 65 [address] [id number] Care Teams Map And Chart Mounter Relationship Specialty Start Date End Date April Dave ANP [address] [place] [address] PCP - General Family Medicine 11/16/20 Eduarda Krishnan MD [address] [place] [phone] Hematology and Oncology 06/01/24June [address] [place] [address] 3rd [place] [address] 06/01/24
--- OUTSIDE RECORDS SUMMARY | 2024-12-30 15:38 | XMS_ITS | Encounter Summary ---
Author Organization [employer] Address [address] [facility] 7t [place] [address] Care Team Providers Care Brass Roller Name Role Phone April Dave Primary Care Provider [phone] Eduarda Krishnan MD Unavailable [phone] June Unavailable Reason for Visit * Reason Comments Med Refill Encounter Details Date Type Department Care Team (Late st Contact Info) Description 06/09/2023 Refill [facility] [address] [place] [address] April Dave ANP [address] [place] [address] Diabetic nephropathy associated with type 2 diabetes [...] Patient states she sees Temitope Rico at [facility] and has a follow-up on 06/30/23. She is not sure whether/when a colonoscopy will be recommended. She states she will pepper picker folic acid supplement and ropinirole from [...] and/or other concerns arise. TC placed to [facility] pharmacy and they stated they were [...] Description 01/31/2025 11:00 AM EST Office Visit [facility] [address] [place] [address] April Dave ANP [address] [place] [address] documented as of this encounter Visit Diagnoses Diagnosis Diabetic nephropathy associated with type 2 diabetes mellitus (HCC) documented in this encounter Care Teams Brass Roller Relationship Specialty Start Date End Date April Dave ANP [address] [place] [address] PCP - General Family Medicine 11/16/20 Eduarda Krishnan MD [address] [place] [address] Hematology and Oncology 06/01/24[address] 3rd [place] [address] 06/01/24 documented as of this encounter
--- OUTSIDE RECORDS SUMMARY | 2024-12-30 15:38 | XMS_ITS | Encounter Summary ---
Author Organization [employer] Address [address] [facility] 7t [place] [address] Care Team Providers Care Technology Trainer Name Role Phone April Dave Primary Care Provider [phone] Eduarda Krishnan MD Unavailable June Unavailable Reason for Visit * Reason Comments Med Refill Encounter Details Date Type Department Care Team (Late st Contact Info) Description 01/05/2023 Refill [facility] [address] [place] [address] April Dave ANP [address] [place] [address] Depressive disorder Social History Tobacco Use Types [...] Description 01/31/2025 11:00 AM EST Office Visit [facility] [address] [place] [address] April Dave ANP [address] [place] [address] documented as of this encounter Visit Diagnoses Diagnosis Depressive disorder Depressive disorder, not elsewhere classified documented in this encounter Care Teams Technology Trainer Relationship Specialty Start Date End Date April Dave ANP [address] [place] [address] PCP - General Family Medicine 11/16/20 Eduarda Krishnan MD [address] [place] [address] Hematology and Oncology 06/01/[address] [place] [address] 3rd [place] [address] 06/01/24 documented as of this encounter
--- OUTSIDE RECORDS SUMMARY | 2024-12-30 15:38 | XMS_ITS | Clinical Summary ---
Author Organization [facility] Address [address] [place] [address] [address] [place] [phone] Phone Care Team Providers Care Lurer Name Role Phone Inez Dewitt NP Primary Care Provider [phone] Allergies Active Allergy Reactions Criticality Noted Date [...] by mouth 2 Active UltiCare Mini Pen Broadbent 31G X 6 MM misc USE FOUR [...] Visit [facility] [address] [place] [phone] Alan Nash MD Chronic kidney disease, stage [...] Visit [facility] [address] [place] [phone] Alan Nash MD [address] [facility] [address] [place] [address] Health Maintenance Due Date Last [...] 07/01/2023, 11/07/2014, 07/27/2014, Additional history exists Insurance [facility] ([id number]) [place] [id number] [facility] ([id number]) [place] [id number] Care Teams Lurer Relationship Specialty Start Date End Date Inez Dewitt NP [address] [place] [phone] PCP - General 04/09/20
--- OUTSIDE RECORDS SUMMARY | 2024-12-30 15:38 | XMS_ITS | Encounter Summary ---
Author Organization [employer] Address [address] [facility] [address] [place] [address] Care Team Providers Care Manager Program Management Name Role Phone April Dave Primary Care Provider [phone] Eduarda Krishnan MD Unavailable June Unavailable Reason for Visit * Reason Onset Date Comments Pre-op Exam 09/08/2024 Encounter Details Date Type Department Care Team (Late st Contact Info) Description 09/08/2024 Telephone [facility] MEDICINE [address] [place] [address] April Dave ANP 230 [place] [address] Pre-op Exam Social History Tobacco Use Types [...] - 09/08/2024 10:31 AM EDT [place] at [facility] agreed to pre op appointment on 09/23/24 at 2PM. Appointment reminder letter mailed * Telephone Encounter - Gwen Mckenzie - 09/08/2024 9:32 AM EDT Date of Surgery: 10/21/2024 Surgical procedure being done: left shoulder arthroscopy Type of anesthesia: General Lab needed: Yes EKG: Yes Surgeon's name: [facility] Facility name: [facility] Surgeon's office number: [phone] Surgeon's office fax number: [phone] Contact name (person you spoke with): [place] Last office note from surgeon requested: Yes Send Message to Jerri Holt and Serg Almanza documented in this encounter Plan of Treatment Upcoming Encounters Date Type Department Care Team ([facility] Contact Info) Description 01/31/2025 11:00 AM EST Office Visit [facility] MEDICINE [address] [place] [address] April Dave ANP 230 [place] [address] documented as of this encounter Visit Diagnoses Not on filedocumented in this encounter Additional Health Concerns Assessment Noted Time PHQ-9 Depression Total Score: 1 12/31/19 24 10:03 AM EDT documented as of this encounter Care Teams Manager Program Management Relationship Specialty Start Date End Date April Dave ANP 230 [place] [address] PCP - General Family Medicine 11/16/20 Eduarda Krishnan MD [address] [place] [address] Hematology and Oncology 06/01/24 Trisha Temitope [address] [place] [address] 3rd [place] [address] 06/01/24 documented as of this encounter
--- OUTSIDE RECORDS SUMMARY | 2024-12-30 15:38 | XMS_ITS | Clinical Summary ---
Author Organization [facility] Address 175 [place] [address] Phone Care Team Providers Care Cab Starter Name Role Phone April Dave NP Primary Care Provider [phone] Social History Tobacco Use Types Packs/Day Years [...] PM EST Office Visit Orthopedic Surgery - [place] [address] [phone] Terell Nicholas DPM [address] [address] Health Maintenance Due Date Last Done Comments [...] patient's age to complete this topic Insurance [facility] MEDICARE Member Subscriber Plan / Payer (Ef fective 2016-Present) Name:JOSE WILLIS Relation to Subscriber:Self Name:Jose Willis Payer ID:[id number] Group ID:[id number] Type:Not on file Address: [place] [address] [address] [phone] Care Teams Cab Starter Relationship Specialty Start Date End Date April Dave NP [address] [place] [address] PCP - General 01/05/24
== END 2024-12-30 15:36 | disposition home or self-care (01) ==
LOC: HO.US 15:35
PROVIDERS: PCP Nurse Practitioner Primary Care; Visit Provider Nurse Practitioner
DX: R60.0 Localized edema (principal)
CPT/HCPCS: 93971

== ENCOUNTER → 2024-12-30 16:11 | Outpatient (BNV) | payer OTHER, SELFPAY | PROVIDERS: PCP Nurse Practitioner Primary Care; Visit Provider Radiology Diagnostic Radiology | DX: R60.0 Localized edema (principal) | CPT/HCPCS: 93971 ==

== ENCOUNTER 2025-01-27 11:44 | Outpatient (REF) | payer OTHER, SELFPAY ==
--- NOTE | ~2025-01-27 | CT_ITS ---
EXAMINATION: CT LUNG SCREENING HISTORY: F17.210 - Nicotine dependence, cigarettes, uncomplicated TECHNIQUE: Low dose axial images were obtained from the sternal notch to upper abdomen without IV contrast per standard departmental protocol. Sagittal and coronal reformatted images were also obtained and reviewed. One or more of the following techniques was used for dose reduction: Automated exposure control, adjustment of the mA and/or kV according to patient size, use of iterative reconstruction technique. DLP: 42 mGy-cm COMPARISON: Review of chest CT scans most recent December 2023 FINDINGS: Lung nodules: 3 mm peripheral or subpleural right upper lobe nodule axial image 19 series 5. 3 mm peripheral or subpleural left upper lobe nodule axial image 76 series 5. 12 x 18 mm groundglass attenuation right lower lobe nodule/atypical cyst axial image 66 series 5. This has areas of cystic change and more solid component inferiorly measuring 2.6 mm axial image 70 series 5. This appears unchanged from most recent December 2019 exam and new from older December 2019 exam. 7 mm peripheral or subpleural calcified right middle lobe nodule adjacent to the minor fissure axial image 73 series 5, stable. Increasing small cluster of nodules in the left upper lobe for example axial image 6873 and 77 series 5. These measure up to 4 mm. these appear peribronchial in the related to airways disease. There is increasing volume loss to the left lower lobe. There are multiple peripheral or subpleural rounded masslike areas of consolidation in the left lower lobe. This has a central swirled appearance and probably represents round atelectasis. This appears increased from December 2023 exam, largest area measuring 1.8 x 4.2 cm axial image 105 series 5. There is subsegmental atelectasis in the inferior segment of the lingula, right middle lobe and posterior medial right lower lobe. Emphysema: moderate Coronary Calcification: moderate Aortic Arch Calcification: mild Potentially Significant Incidentals : none Additional Chest Findings: Normal heart size. There is no pleural or pericardial effusion. Normal caliber thoracic aorta. Mild aortic valve calcification. There are small mediastinal lymph nodes and bilateral axillary lymph nodes similar to previous exam. No enlarged lymph nodes. Visualized upper abdomen: Prominent spleen. This is similar to previous abdominal and pelvic CT January 2024. Degenerative changes of the spine. CT/CT lung screening IMPRESSION: Moderate emphysema. Increasing volume loss in the left lower lobe and peripheral or subpleural round or masslike consolidation probably representing increasing round atelectasis. There is adjacent small left pleural effusion or pleural thickening that appears unchanged. Stable 12 x 18 mm groundglass attenuation nodule with central cystic area versus atypical cyst. Small inferior 3 mm more solid component. This appears unchanged from December 2023 is new from older 2019 exam. New mild airways disease in the left upper lobe. Increasing subsegmental atelectasis in the lingula, right middle and right lower lobe. LUNG-RADS ASSESSMENT: Lung-RADS 3: Probably Benign MANAGEMENT: 6 month LDCT Category S: N/A Electronically signed by: Ruthann Thurston MD 01/27/2025 05:02 PM EDT
--- OUTSIDE RECORDS SUMMARY | 2025-01-27 13:23 | XMS_ITS | Encounter Summary ---
Author Organization [employer] Address 75 [facility] 7[address] [place] [address] Care Team Providers Care Metalizing Machine Operator Automatic Name Role Phone April Dave Primary Care Provider [phone] Eduarda Krishnan MD Unavailable [phone] June Unavailable Reason for Visit * Reason Onset Date Comments Med Refill 05/27/2024 Encounter Details Date Type Department Care Team (Late st Contact Info) Description 05/27/2024 Telephone [facility] MEDICINE 230 [place] [address] April Dave ANP 230 [place] [address] Med Refill Social History Tobacco Use Types [...] EST Script was sent on 05/10/24 to [facility]. * Telephone Encounter - Remington Briggs - 05/27/2024 2:48 PM EST TC from pt requesting medication refill. Medications needing refill : rOPINIRole (Requip) 1 MG tablet To be sent to: [facility] - [place], [place] - [address] [facility] Pt states that she dosent have any more left. documented in this encounter Plan of Treatment Upcoming Encounters Date Type Department Care Team (Late st Contact Info) Description 01/31/2025 11:00 AM EST Office Visit [facility] MEDICINE 230 [place] [address] April Dave, AARON 230 [place] [address] documented as of this encounter Visit Diagnoses Not on filedocumented in this encounter Additional Health Concerns Assessment Noted Time PHQ-9 Depression Total Score: 1 12/31/19 24 10:03 AM EDT documented as of this encounter Care Teams Metalizing Machine Operator Automatic Relationship Specialty Start Date End Date April Dave ANP 230 [place] [address] PCP - General Family Medicine 11/16/20 Eduarda Krishnan MD 575 [place] [address] Hematology and Oncology 06/01/[address] [place] [address] 3rd [place] [address] 06/01/24 Smiley Nunez 01/10/25 documented as of this encounter
--- OUTSIDE RECORDS SUMMARY | 2025-01-27 13:23 | XMS_ITS | Encounter Summary ---
Author Organization [employer] Address 75 [facility] 7[address] [place] [address] Care Team Providers Care Concrete Inspector Name Role Phone April Dave Primary Care Provider [phone] Eduarda Krishnan MD Unavailable [phone] June Unavailable Reason for Visit * Reason Onset Date Comments Hospital Follow-up 12/16/2023 Encounter Details Date Type Department Care Team (Late st Contact Info) Description 12/16/2023 Telephone [facility] MEDICINE 230 [place] [address] April Dave ANP 230 [place] [address] Hospital Follow-up Social History Tobacco Use Types [...] from pt requesting a HDF appt. Hospital: [facility] Date of admission: 12/09/23 Discharge date: 12/11/23 Diagnosed: Hand Surgery documented in this encounter Plan of Treatment Upcoming Encounters Date Type Department Care Team (Late st Contact Info) Description 01/31/2025 11:00 AM EST Office Visit [facility] MEDICINE [address] [place] [address] April Dave ANP 230 [place] [address] documented as of this encounter Visit Diagnoses Not on filedocumented in this encounter Care Teams Concrete Inspector Relationship Specialty Start Date End Date April Dave ANP 230 [place] [address] PCP - General Family Medicine 11/16/20 Eduarda Krishnan MD [address] [place] [address] Hematology and Oncology 06/01/[address] [place] [address] Drive 3rd [place] [address] 06/01/24 Smiley Nunez 01/10/25 documented as of this encounter
--- OUTSIDE RECORDS SUMMARY | 2025-01-27 13:23 | XMS_ITS | Patient Health Record ---
Author Organization [facility] Address [address] [place] [address] Care Team Providers Care Wireless Team Member Name Role Phone Jose Cruz Unavailable [phone] Reason For Referral No Information Plan Of Treatment No Information
--- OUTSIDE RECORDS SUMMARY | 2025-01-27 13:23 | XMS_ITS | Clinical Summary ---
Author Organization 175 [facility] Address 175 [place] [address] Phone Care Team Providers Care Chemistry Research Assistant Name Role Phone April Dave NP Primary [...] PM EST Office Visit Orthopedic Surgery - [place] [address] 175 [facility] [address] [place] [address] Terell Nicholas, BELKYS 230 [place] [phone] Health Maintenance Due Date Last Done Comments [...] patient's age to complete this topic Insurance [facility] MEDICARE Member Subscriber Plan / Payer (Ef fective 2016-Present) Name:JOSE WILLIS Relation to Subscriber:Self Name:Jose Willis Payer ID:[id number] Group ID:[id number] Type:Not on file Address: [place] [address] [address] [phone] Care Teams Chemistry Research Assistant Relationship Specialty Start Date End Date April Dave NP [address] [place] [address] PCP - General 01/05/24
--- OUTSIDE RECORDS SUMMARY | 2025-01-27 13:23 | XMS_ITS | Encounter Summary ---
Author Organization [employer] Address 75 [facility] [address] [address] Care Team Providers Care Electric Lift Truck Driver Name Role Phone April Dave Primary Care Provider [phone] Eduarda Krishnan MD Unavailable [phone] June Unavailable Reason for Visit * Reason Onset Date Comments Triage 08/22/2022 Encounter Details Date Type Department Care Team ([facility] st Contact Info) Description 08/22/2022 Telephone [facility] MEDICINE 230 [place] [address] April Dave ANP 230 [place] [address] Triage Social History Tobacco Use Types Packs/Day [...] accepted this outcome Please contact pt at [phone] documented in this encounter Plan of Treatment Upcoming Encounters Date Type Department Care Team (Late st Contact Info) Description 01/31/2025 11:00 AM EST Office Visit [facility] MEDICINE [address] [place] [address] April Dave ANP 230 [place] [address] documented as of this encounter Visit Diagnoses Not on filedocumented in this encounter Care Teams Electric Lift Truck Driver Relationship Specialty Start Date End Date April Dave ANP 230 [place] [address] PCP - General Family Medicine 11/16/20 Eduarda Krishnan MD [address] [place] [address] Hematology and Oncology 06/01/[address] [place] [address] Drive 3rd [place] [address] 06/01/24 Smiley Nunez 01/10/25 documented as of this encounter
--- OUTSIDE RECORDS SUMMARY | 2025-01-27 13:23 | XMS_ITS | Encounter Summary ---
Author Organization [employer] Address 75 [facility] 7t [place] [address] Care Team Providers Care Market Analyst Name Role Phone April Dave Primary Care Provider [phone] Eduarda Krishnan MD Unavailable [phone] June Unavailable Reason for Visit * Reason Comments Med Refill Encounter Details Date Type Department Care Team (Late st Contact Info) Description 01/05/2023 Refill [facility] MEDICINE 230 [place] [address] April Dave ANP [address] [place] [address] Depressive disorder Social History Tobacco Use Types [...] 01/31/2025 11:00 AM EST Office Visit [facility] MEDICINE [address] [place] [address] April Dave ANP [address] [place] [address] documented as of this encounter Visit Diagnoses Diagnosis Depressive disorder Depressive disorder, not elsewhere classified documented in this encounter Care Teams Market Analyst Relationship Specialty Start Date End Date April Dave ANP 230 [place] [address] PCP - General Family Medicine 11/16/20 Eduarda Krishnan MD 575 [place] [address] Hematology and Oncology 06/01/24June [address] [place] [address] 3rd [place] [address] 06/01/24 Smiley Nunez 01/10/25 documented as of this encounter
--- OUTSIDE RECORDS SUMMARY | 2025-01-27 13:23 | XMS_ITS | Encounter Summary ---
Author Organization [employer] Address [address] [place] [address] [place], [place] [address] Care Team Providers Care Bag Builder Name Role Phone April Dave Primary Care Provider [phone] Eduarda Krishnan MD Unavailable [phone] June Unavailable Encounter Details Date Type Department Care Team (Late st Contact Info) Description 02/28/2022 Orders Only [facility] 230 [place] [address] Emily [place], RN 230 [place] [address] Social History Tobacco Use Types Packs/Day Years [...] 01/31/2025 11:00 AM EST Office Visit [facility] MEDICINE [address] [place] [address] April Dave ANP 230 [place] [address] documented as of this encounter Visit Diagnoses Not on filedocumented in this encounter Care Teams Bag Builder Relationship Specialty Start Date End Date April Dave ANP [address] [place] [address] PCP - General Family Medicine 11/16/20 Eduarda Krishnan MD [address] [place] [address] Hematology and Oncology 06/01/24June [address] [place] [address] 3rd [place] [address] 06/01/24 Smiley Nunez 01/10/25 documented as of this encounter
--- OUTSIDE RECORDS SUMMARY | 2025-01-27 13:23 | XMS_ITS | Clinical Summary ---
Author Organization [facility] Address [address] [place], [place] [phone] Phone Care Team Providers Care Aircraft Cleaner Name Role Phone Unavailable Primary Care Provider [...] file Medical Devices Not on file Insurance [facility] ONE CARE MEDICARE REPLACEMENT [place] [place] [id number] [facility] CARE MEDICARE REPLACEMENT CARE MEDICARE REPLACEMENT [facility] CARE MEDICARE REPLACEMENT CARE MEDICARE REPLACEMENT MEDICARE REPLACEMENT CARE MEDICARE [place] [place] [address] CARE MEDICARE REPLACEMENT Additional Source Comments The information contained in this document represents components of the legal health record. It is not the complete legal health record.[facility]
--- OUTSIDE RECORDS SUMMARY | 2025-01-27 13:23 | XMS_ITS | Encounter Summary ---
Author Organization [employer] Address 75 [facility] 7[address] [place] [address] Care Team Providers Care Head Resident Name Role Phone April Dave Primary Care Provider Eduarda Krishnan MD Unavailable [phone] June Unavailable Reason for Visit * Reason Onset Date Comments Pre-op Exam 09/08/2024 Encounter Details Date Type Department Care Team (Late st Contact Info) Description 09/08/2024 Telephone [facility] MEDICINE 230 [place] [address] April Dave ANP 230 [place] [address] Pre-op Exam Social History Tobacco Use Types [...] - 09/08/2024 10:31 AM EDT [place] at [facility] agreed to pre op appointment on 09/23/24 at 2PM. Appointment reminder letter mailed * Telephone Encounter - Gwen Mckenzie - 09/08/2024 9:32 AM EDT Date of Surgery: 10/21/2024 Surgical procedure being done: left shoulder arthroscopy Type of anesthesia: General Lab needed: Yes EKG: Yes Surgeon's name: [facility] Facility name: [facility] Surgeon's office number: [phone] Surgeon's office fax number: [phone] Contact name (person you spoke with): [place] Last office note from surgeon requested: Yes Send Message to Jerri Holt and Serg Almanza documented in this encounter Plan of Treatment Upcoming Encounters Date Type Department Care Team ([facility] Contact Info) Description 01/31/2025 11:00 AM EST Office Visit [facility] MEDICINE 230 [place] [address] April Dave ANP 230 [place] [address] documented as of this encounter Visit Diagnoses Not on filedocumented in this encounter Additional Health Concerns Assessment Noted Time PHQ-9 Depression Total Score: 1 12/31/19 24 10:03 AM EDT documented as of this encounter Care Teams Head Resident Relationship Specialty Start Date End Date April Dave ANP 230 [place] [address] PCP - General Family Medicine 11/16/20 Eduarda Krishnan MD [address] [place] [address] Hematology and Oncology 06/01/24June [address] [place] [address] Drive 3rd [place] [address] 06/01/24 Smiley Nunez 01/10/25 documented as of this encounter
--- OUTSIDE RECORDS SUMMARY | 2025-01-27 13:23 | XMS_ITS | Encounter Summary ---
Author Organization [employer] Address 75 [facility] 7t [place] [address] Care Team Providers Care Robotic Weld Technician Name Role Phone April Dave Primary Care Provider [phone] Eduarda Krishnan MD Unavailable [phone] June Unavailable Reason for Visit * Reason Comments Med Refill Encounter Details Date Type Department Care Team (Late st Contact Info) Description 06/09/2023 Refill [facility] MEDICINE 230 [place] [address] April Dave ANP 230 [place] [address] Diabetic nephropathy associated with type 2 diabetes [...] states she sees Temitope Rico at [facility] and has a follow-up on 06/30/23. She is not sure whether/when a colonoscopy will be recommended. 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 TC placed to [facility] pharmacy and they stated they were [...] EST Office Visit [facility] MEDICINE 230 [place] [address] April Dave ANP 230 [place] [address] documented as of this encounter Visit Diagnoses Diagnosis Diabetic nephropathy associated with type 2 diabetes mellitus (HCC) documented in this encounter Care Teams Robotic Weld Technician Relationship Specialty Start Date End Date April Dave ANP 230 [place] [address] PCP - General Family Medicine 11/16/20 Eduarda Krishnan MD 575 [place] [address] Hematology and Oncology 06/01/[address]rd [place] [address] 06/01/24 Smiley Nunez 01/10/25 documented as of this encounter
--- OUTSIDE RECORDS SUMMARY | 2025-01-27 13:23 | XMS_ITS | Encounter Summary ---
Author Organization [facility] Address [address] [facility] [address] [place] [address] Phone Care Team Providers Care Coach Cleaner Name Role Phone Unavailable Primary Care Provider Unavailabl e Encounter Details Date Type Department Care Team (Latest Contact Info) Description 06/25/2018 Ancillary Orders [facility] [address] [place] [address] [place] [address] Nba Bernstein, [address] [address] Chest pain, unspecified type Social History Tobacco [...] It is not the complete legal health record.[facility]
--- OUTSIDE RECORDS SUMMARY | 2025-01-27 13:23 | XMS_ITS | Data Portability ---
Author Organization [employer], [facility] Address [address] [place] [address] Care Team Providers Care Director Of Marketing Analytics Name Role Phone Unavailable Referring Provider HIM CCA OTHER Assessment Encounter Date Assessment Date Assessment LastModified by Organization Details LastModified Time 02/23/2023 02/23/2023 As noted, we were called to see this patient regarding concerns of Evaluation in the field was performed by my welding robot operator colleague, as noted above, I provided real-time [...] assessment and plan as documented by the welding robot operator. I provided real-time medical direction for this [...] in the field was performed by my welding robot operator colleague, as noted above, I provided real-time [...] Assessment and Plan as documented by the Field Test Engineer. We discussed the diagnostic uncertainty of home [...] to call 911- verbalized understanding of instruction [email or web address] Not available 03/08/2024 00:03:32 07/27/2024 07/27/2024 Impression: [...] pill or obstructions, low suspicion for perforation, PHYSICS TECHNICIAN, RPA, abscess, meningitis. Unclear if this is [...] of any new or worsening serious symptoms [email or web address] Not available 07/27/2024 13:02:59 Plan of Treatment Reminders Order Date Submit Date Provider Last Modified By Organization Details Last Modified Time Details Appointments None recorded. Lab rapid SARS CoV 2 Ag, QL IA, respiratory specimen 2024 025 Replaced by [facility], [address] [place] [address], [id number] 5 14:30:50 rapid flu (A+B) [address], [id number] 5 14:28:58 rapid strep group A, throat [address], [id number] 5 14:32:11 BMP, serum or plasma 2023 024 [email or web address] 0 [facility], [address] [place] [address], [id number] 15:47:26 Referral None recorded. Procedures None recorded. Surgeries None recorded. Imaging None recorded. Medication Orders furosemide 10 mg/mL injection solution 2023 024 [email or web address] 0 [facility], [address] [place] [address], [id number], 4 15:47:26 potassium chloride ER 20 mEq tablet,exte nded release 2023 024 [email or web address] 0 [facility], [address] [place] [address], [id number], 4 15:47:26 azithromyci n 250 mg tablet 2022 023 [facility], [address] [place] [address], [id number], 3 12:11:17 Patient TargetsNo targets recorded. Patient [...] Name and Address Organization Details Recorded Time 78343 acetamino phen / hydrocodo ne medicatio n Not available Not available Not available 01/30/2024 73135 2 RxNorm Not Available [facility] - production 4 17:29:12 31792 hydrocodo ne Not available Not available Not available Not available 03/07/2024 5489 RxNorm Not Available [facility] - production 4 12:41:10 39157 tramadol medicatio n Not available Not available Not available 03/07/2024 52708 [facility] Available [facility] 12:41:10 27578 lisinopri l medicatio n Not available Not available Not available 03/07/2024 05049 RxNorm Not Available [facility] - production 4 12:41:10 7573 albuterol medicatio n Not available Not available Not available 01/26/2024 435 RxNorm Not Available [facility] 03:38:23 Medications Name Sig Start Date Stop Date Status Note LastModified by Organization Details LastModified Time medbox status USE DIRECTED active Not Available Not Available No t Available pulse oximet airial [id number] USE TWICE DAILY DIRECTED active Not Available [...] Available Not Available No t Available FreeStyle [place] Lite kit USE DIRECTED active Not Available [...] Updated DateTime 5 97.5 [degF] 144.78 cm 66435.6 72 g 98 % 98 % 18 [...] /min 90 /min 123/98 mm[Hg] Not Available Marley Spoon 4 12:44:04 Date Recorded Respiratory rate Heart rate Body height Oxygen saturation Oxygen saturation in Arterial blood by Pulse oximetry Body weight Body temperature Systolic And Diastolic Provider Name and Address Organization Details Last Updated DateTime 4 20 /min 97 /min 147.32 cm 99 % 99 % 83006.6 96 g 98.1 [degF] 116/77 mm[Hg] Not Available Marley Spoon 4 19:02:23 Date Recorded Body weight Respiratory rate Heart rate Oxygen saturation Oxygen saturation in Arterial blood by Pulse oximetry Body height Body temperature Systolic And Diastolic Provider Name and Address Organization Details Last Updated DateTime 3 52565.5 36 g 18 /min 98 /min 97 % 97 % 147.32 cm 100.6 [degF] 141/53 mm[Hg] Not Available Marley Spoon 3 20:20:15 Date Recorded Body height Body mass index (BMI) Body weight Provider Name and Address Organization Details Last Updated DateTime 03/07/2024 147.32 cm 26.8 kg/m2 15010.82 g Rosario Maguire MD [address] [place] [address],[address] [facility], [place], [phone], [place] - [email or web address] 03/07/2024 15:26:21 Date Recorded Heart rate Body temperature Oxygen saturation Oxygen saturation in Arterial blood by Pulse oximetry Respiratory rate Systolic And Diastolic Provider Name and Address Organization Details Last Updated DateTime 4 96 /min 96.9 [degF] 98 % 98 % 18 /min 151/86 mm[Hg] Not Available Marley Spoon 4 15:08:50 Social History None recorded. Functional Status None recorded. Mental Status None recorded. Family History Nothing Reported. Medical History No medical history recorded. Gynecological HistoryNo gynecological history recorded. Obstetrics History GPAL:G 0 P 0 0 0 0 Past Encounters Encounter ID Performer Location Encounter Start Date Encounter Closed Date Diagnosis/Indication Diagnosis SNOMED-CT Code Diagnosis ICD10 Code Diagnosis IMO Codes Diagnosis Note [id number] Valmeek Kudesia, MD [facility] [address] [place] [id number] 12/13/2021 20:36:20 12/20/2021 13:30:15 Cellulitis 527295993 L03.90 [id number] Yelena Landaverde MD [facility] [address] [place] [id number] 02/23/2023 20:14:26 02/23/2023 23:04:54 Community acquired pneumonia 267118845 J18.9 Acute exac erbation of chronic obstructive pulmonary disease 965268957 J44.1 [id number] Winsome Díaz MD [facility] [address] [place] [id number] 10/24/2023 12:43:55 07/14/2024 20:07:33 Cat bite 422390173 W55.01XA [id number] Yelena Landaverde MD [facility] [address] [place] [id number] 01/30/2024 19:02:19 02/01/2024 00:29:21 Abdominal pain 40043515 R10.9 Suprapubic pain 25788090 6 R10.30 [id number] Rosario Maguire MD [facility] [address] [place] [id number] 03/07/2024 15:08:39 03/08/2024 17:25:37 Peripheral edema 621362312 R60.9 No clinical evidence of CHFBoth legs more edematous than usual, right foot is more swollen than left/no history of trauma but no cords /Homans negative so DVT is unlikely. No warmth or erythema to suggest cellulitis . Primary care team: If patient continues to have pain/sts she will need imaging studies. Patient is quite anemic- her [facility] notes from 02/20 through 02/22/2024 [...] return to 2000 mg per 24 hours [id number] Deni Santos MD [facility] [address] [place] [id number] 07/27/2024 12:53:57 07/27/2024 14:12:25 Pain in throat 164673778 J02.9 69898 Health Concerns Section Related Observation LastModified by Organization Detai ls LastModified Time None Recorded Concern Status LastModified by Organization Details LastModified Time None Recorded Advance Directives Directive None Recorded Payers Insurance Date Sequence Insurance Name Policy Number Policy Sepulveda Covered Member ID Sepulveda Member ID Guarantor Name 02/18/2024 1 [facility] - DOS PRIOR TO 2022 - DUAL ELIGIBLE (MEDICARE REPLACEMENT/AD VANTAGE - HMO) Vikki Willis [id number] Vikki Willis 07/27/2024 1 [facility] - DOS ON OR AFTER 2022 - DUAL ELIGIBLE - HALF-WAY OPTIONS AND ONE CARE (MEDICARE REPLACEMENT/AD VANTAGE - HMO) Vikki Willis [id number] Vikki Willis Notes Date Note Type Note [...] CRC RN DID NOT NEED FURTHER INFO [facility] HPI: runny nose, clear mucous, x 1 mo. seen by PCP, given cough medicine with codeine. last appt w PCP was 1 wk ago. still having productive cough. started corcidin last week 5d ago. using combivent and flovent. no sore throat, and some chest congestion Yelena Landaverde MD [address] [place] [address],[address], [place], [phone], [employer] 02/23/2023 20:29:29 10/24/2023 text/html CRC Nurse Triage Notes (Elizabeth Grijalva): Reason For Request: Patient was bit on the arm by her Kitten. Chief Complaints: Injury PMH: COPD/Asthma, Diabetes, Hypertension Allergies: Albuterol Other Allergies: Vicodin Comments: Drip Pumper verified the member's name//address and phone number.Member [...] .................... .................... .................... .................... .................... .................... . Field Test Engineer Note From Destini Castro: Pt with significant bite/scratch almendarez from kitten while both kittens in a fight. Kitten not yet fully vaccinated. A&ox3, vss, afebrile; one puncture site actively bleeding at present. C consulted, pt agreeable to go to ER by POV to have wounds irrigated and evaluated for stitches. Hand and wrist wrapped with clean dry dressing. Red flags reviewed. Field Test Engineer Allergies: Albuterol .................... .................... .................... .................... .................... .................... .................... . Disposition: Fulfilled Winsome Díaz MD [address] [place] [address],[address], [place], [phone], [employer] 10/24/2023 13:07:25 01/30/2024 text/html CRC Nurse Triage Notes (Figueroa Sanders): Reason For Request: Pt reporting problem going number number 2 primarily but notes having problems going number 1 as well Chief Complaints: Abdominal pain PMH: COPD/Asthma, Hypertension, Anxiety Disorder, Chronic Kidney Disease, Depression, Epilepsy/Seizure Disorder, Diabetes Mellitus Type 2 Comments: Drip Pumper verified the Pt.'s name//address and phone number. [...] scene and unable to make contacted - [place] PD contact and will be dispatching a unit [facility] HPI: pain w trying to urinate, like she has to push. some constipation. .................... .................... .................... .................... .................... .................... .................... . Field Test Engineer Note From Bob Ac: Pt chief complaint today of lower abdominal pain most closely related to the Pubic/perineal area. Pt states that she has been having this problem for 4 days prior to [facility] visit. Pt states she has [...] Pt is CAOX4 with a [facility] Yelena Landaverde consultedPt expressed that it would be in her best interest to be seen at. Center of higher ability for more testing that [facility] cannot provide. Pt is also educated on the possible negative effects that can occur from waiting up t and including possible . Pt decides to wait till tomorrow for further diagnostics and treatmentPt is educated on red flag S&S and informed to call emergency services if any present. .................... .................... .................... .................... .................... .................... .................... . [facility] Consulted: Yelena Landaverde .................... .................... .................... .................... .................... .................... .................... . Disposition: Fulfilled Yelena Landaverde MD [address] [place] [address],[facility] [facility], [place], [phone], [facility] [email or web address] 01/30/2024 19:47:48 03/07/2024 text/html ROS as noted in the HPI HPI: Call returned to Vikki Willis to [...] come into walk in center. Agrees to [facility] for evaluation. Confirmed demographics and allergies. .................... .................... .................... .................... .................... .................... .................... . CRC Nurse Triage Notes (Treasure Childers): Chief Complaints: Swelling PMH: COPD/Asthma, Hypertension, Anxiety Disorder, Chronic Kidney Disease, Depression, Epilepsy/Seizure Disorder, Diabetes Mellitus Type 2, Asthma Comments: HPI reviewed Field Test Engineer Organization Information for James Greene Juma Snyder Legal Name: [facility] [employer] Address: [address] [place] [address], Medical Transport Specialist: Douglas Bucio MD CLIA No.: [id number] Field Test Engineer POC Test Results from Steviebenji James Dennison JUNIOR [facility] (15:03:32) pH: 7.39 pH units pCO2: 32.2 mmHg pO2: 41.0 mmHg Na: 135 mmol/L K: 3.7 mmol/L iCa: 1.21 mmol/L Cl: 106 mmol/L TCO2: 19.2 mEq/L Hct: 28 % Hb: 9.5 g/dL Glu: 103 mg/dL Lac: 1.3 mmol/L Cr: 0.77 mg/dL BUN: 7 mg/dL A .................... .................... .................... .................... .................... .................... .................... . Field Test Engineer Note From James Greene: This 63-year-old female [...] .................... .................... .................... .................... .................... .................... . [facility] Consulted: Rosario Maguire .................... .................... .................... .................... .................... .................... .................... . Disposition: Fulfilled SEGMD: Patient denies trauma/she denies history of gout. Although her right foot is more swollen than the left she reports her legs are much more edematous than baseline and they are painful. She was hospitalized at [facility] the week of 02/20 with a potassium of 2 diverticulitis and a UTI. Her hemoglobin was noted to go from 11 down to 8 during that visit with no history of GI bleeding. She also has a PMH including but not limited to: Asthma/COPD/HTN/CHF/ /CKD/DM 2/epilepsy/(iron deficiency anemia, hyponatremia and hypokalemia per PCP note 03/03/2024)./Anxiety and depression. Rosario Maguire MD [address] [place] [address],[address], [place], [address], [employer] 03/08/2024 00:13:48 07/27/2024 text/html ROS as noted in the HPI HPI: Member took her morning meds, then c/o sore throat and mild congestion.Member unsure if it was one of the medications that irritated her throat or caused some difficulty swallowing. c/o mild cough and sore throat. Member is denying any other complaints.: note- info provided by Paula from [facility] .................... .................... .................... .................... .................... [...] signs of when to seek emergency care. Field Test Engineer Organization Information for Emanuel Kayleen Juma [employer]IOR [employer] Legal Name: [employer]. Address: [address] [place] [address], Medical Transport Specialist: Bran De La Rosa MD CLIA No.: [id number] Field Test Engineer POC Test Results from CastellanosKayleen Rapid COVID antigen (12:52:02) COVID: - Rapid influenza antigen (12:52:03) Flu: - Rapid strep test (12:52:27) Strep: - .................... .................... .................... .................... .................... .................... .................... . Field Test Engineer Note From Kayleen Castellanos: Sent to a [...] covid/flu test: neg; Rapid strep test: neg; [facility] consulted and pt is advised to monitor symptoms. Red flags discussed. Pt has no further questions. [facility] Lab Orders: rapid SARS CoV 2 Ag, QL IA, respiratory specimen: Performed rapid flu (A+B): Performed rapid strep group A, throat: Performed .................... .................... .................... .................... .................... .................... .................... . [facility] Consulted: Deni Santos .................... .................... .................... .................... .................... .................... .................... . Disposition: Fulfilled Deni Santos MD [address] [place] [address],[address] [facility], [place], [phone], [facility] - [email or web address] 07/27/2024 13:51:25 OBGyn Episode No OBEpisode recorded.
--- OUTSIDE RECORDS SUMMARY | 2025-01-27 13:23 | XMS_ITS | Encounter Summary ---
Author Organization [employer] Address [address] [place] [address] Care Team Providers Care Weaver Hand Loom Name Role Phone April Dave Primary Care Provider [phone] Eduarda Krishnan MD Unavailable [phone] June Unavailable Encounter Details Date Type Department Care Team (Late st Contact Info) Description 10/09/2023 Orders Only [facility] [address] [place] [address] ProviderRubina MD Social History Tobacco Use Types [...] 01/31/2025 11:00 AM EST Office Visit [facility] [address] [place] [address] April Dave ANP [address] [place] [address] documented as of this encounter Procedures Procedure Name Priority Date/Time Associated Diagnosis Comments HM COLONOSCOPY Routine 09/05/2021 11:04 AM EDT documented in this encounter Results * Hm Colonoscopy (09/05/2021 11:04 AM EDT) us Historical Provider HEALTH MAINTENANCE Final Result documented in this encounter Visit Diagnoses Not on filedocumented in this encounter Care Teams Weaver Hand Loom Relationship Specialty Start Date End Date April Dave ANP [address] [place] [address] PCP - General Family Medicine 11/16/20 Eduarda Krishnan MD [address] [place] [address] Hematology and Oncology 06/01/24June [address]rd [place] [address] 06/01/24 Smiley Nunez 01/10/25 documented as of this encounter
--- OUTSIDE RECORDS SUMMARY | 2025-01-27 13:23 | XMS_ITS | Encounter Summary ---
Author Organization [employer] Address [address] [place] [address] Care Team Providers Care Breed To Wean Production Technician Name Role Phone April Dave Primary Care Provider [phone] Eduarda Krishnan MD Unavailable [phone] June Unavailable Reason for Visit * Reason Onset Date Comments FYI 03/11/2023 Encounter Details Date Type Department Care Team ([facility] st Contact Info) Description 03/11/2023 Telephone [facility] [address] [place] [address] April Dave ANP [address] [place] [address] FYI Social History Tobacco Use Types Packs/Day [...] Tc from [facility] with [facility] advising PCP, pt preferred [facility] and is booked for 04/29 @ 2:45 PM. documented in this encounter Plan of Treatment Upcoming Encounters Date Type Department Care Team (Late st Contact Info) Description 01/31/2025 11:00 AM EST Office Visit [facility] [address] [place] [address] April Dave ANP [address] [place] [address] documented as of this encounter Visit Diagnoses Not on filedocumented in this encounter Care Teams Breed To Wean Production Technician Relationship Specialty Start Date End Date April Dave ANP [address] [place] [address] PCP - General Family Medicine 11/16/20 Eduarda Krishnan MD [address] [place] [address] Hematology and Oncology 06/01/24June [address] [place] [address] Drive 3rd [place] [address] 06/01/24 Smiley Nunez 01/10/25 documented as of this encounter
--- OUTSIDE RECORDS SUMMARY | 2025-01-27 13:23 | XMS_ITS | Clinical Summary ---
Author Organization [employer] Address [address] [facility] [address] [place] [address] Care Team Providers Care Glass Frame Fitter Name Role Phone Bradford Edge AARON Primary Care Provider [phone] Eduarda Krishnan MD Unavailable [phone] June Unavailable Allergies Active Allergy Reactions [...] tablets by mouth at bedtime. 024 Active atorvastatin (Lipitor) 40 MG tablet [...] AT BEDTIME 60 tablet 3 025 Active cetirizine (ZyrTEC) 10 MG tablet [...] 3 Active D3 Super Strength 50 MCG (1999 UT) capsule TAKE 1 CAPSULE BY MOUTH EVERY MORNING 90 capsule 3 Active olmesartan (BENIcar) 40 MG tablet TAKE 1 TABLET BY MOUTH EVERY MORNING 90 tablet 3 025 Active levETIRAcetam (Keppra) 500 MG tabletIndicatio ns:Seizure disorder (CMS/HCC) (HCC) TAKE 1 TABLET BY MOUTH TWICE DAILY IN THE MORNING AND AT BEDTIME 60 tablet 3 Active rOPINIRole (Requip) 1 MG tabletIndicatio ns:Restless Leg Syndrome TAKE 1 TABLET BY MOUTH TWICE DAILY IN THE MORNING AND IN THE EVENING 60 tablet Active olmesartan (BENIcar) 40 MG tablet Take 1 tablet (40 mg) by mouth in the morning. 90 tablet 3 024 2024 Discontinued levETIRAcetam (Keppra) 500 MG tabletIndicatio ns:Seizure disorder (CMS/HCC) (HCC) Take 1 tablet (500 mg) by mouth 2 times daily. 60 tablet 11 024 2024 Discontinued rOPINIRole (Requip) 1 MG tabletIndicatio ns:Restless legs TAKE 1 TABLET BY MOUTH TWICE DAILY IN THE MORNING AND IN THE EVENING 60 tablet 025 2024 Discontinued(R eorder (will not trigger notification [...] pain 05/05/2017 Stage 3 chronic kidney disease ([facility]) 017 Allergic rhinitis 01/05/2015 Constipation 01/05/2015 Depressive disorder 01/05/2015 Essential hypertension 01/05/2015 Hyperlipidemia 01/05/2015 Moderate persistent asthma 01/05/2015 Obstructive sleep apnea syndrome 01/05/2015 Primary osteoarthritis involving multiple joints 01/05/2015 Restless legs 01/05/2015 Seizure disorder ([facility]) 01/05/2015 Vitamin D deficiency 01/05/2015 Resolved Problems [...] Encounters Date Type Department Care Team Description 01/12/2025 Refill [facility] [address] [place] [address] Sandhya Frederick MD Restless legs 01/12/2025 Refill [facility] [address] [place] [address] Bradford Edge ANP Seizure disorder ([facility]) ([facility]); Restless legs 12/30/2024 Results Follow-Up [address] [address] Herminia Ann NP US VENOUS DUPLEX LE RT 12/30/[address] [address] Herminia Ann NP DME compression stocking 12/30/2024 Orders Only [address] [address] Bradford Edge ANP Anemia, unspecified type (Primary Dx) 12/30/[address] [address] Herminia Ann NP DME compression stockings 12/29/[address] [address] Bradford Edge ANP Call Back Request 12/27/2024 Orders Only [address] [address] Bradford Edge ANP Diabetic nephropathy associated with type 2 diabetes mellitus ([facility]/HCC) (Primary Dx); Essential hypertension; Obstructive sleep apnea syndrome; Hyperthyroidism; Iron deficiency anemia, unspecified iron deficiency anemia type; Chronic obstructive pulmonary disease, unspecified COPD type ([facility]/HCC) 12/26/2024 6:00 PM EDT Office Visit [facility] [address] [place] [phone] Herminia Ann NP Swelling of right lower extremity (Primary Dx); Anemia, unspecified type 12/20/2024 9:20 AM EDT Office Visit [facility] [address] [address] James Farris MD Vomiting in adult 12/20/2024 Results Follow-Up [address] [address] Bradford Edge ANP Hemoglobin and Hematocrit 12/20/2024 Orders Only GENERIC EXTERNAL DATA DEPARTMENT Provider, Generic External Data 12/20/2024 Travel 12/04/[address] [address] Bradford Edge ANP Diabetic nephropathy associated with type 2 diabetes mellitus ([facility]/HCC) 11/29/[address] [address] Bradford Edge ANP January11/22/[address] [address] Bradford Edge ANP Iron deficiency anemia, unspecified iron deficiency anemia type 11/16/[address] [address] Bradford Edge ANP pre op 11/11/2024 Telephone [facility] [address], [place] [phone] Isa Thompson DO 11/10/2024 3:40 PM EDT Office Visit [facility] [address] [place] [address] Isa Thompson DO Labial irritation (Primary Dx); Vaginal discomfort 11/01/2024 Telephone [facility] [address] [place] [address] Emily Pitts, RN Paperwork/Forms from Last 3 Months Immunizations Immunization Administration [...] 11:00 AM EST Office Visit [facility] [address], [place] [phone] Bradford Edge, ANP [address], [place] [phone] Health Maintenance Due Date Last Done Comments [...] 05/15/2022, 07/06/2020, 06/08/2020 Influenza Vaccine (#1) 2024 3, 03/04/2021, 02/07/2020, Additional history exists Depression Screening 12/30/2024 12/31/2023, 12/31/19 24 SDOH Screening 12/30/2024 12/31/2023 Diabetes: Hemoglobin A1C 01/25/2025 025, 04/22/2024, 12/31/2023, Additional history exists Alcohol/Substance Use Screening 04/22/2025 04/22/2024 Disability Screening 10/25/2025 10/25/2024 Diabetes: Foot Exam 12/26/2025 12/26/2024, 12/26/2024, 12/26/2024, Additional history exists Tobacco Screening 01/17/2026 01/17/2025 Colonoscopy 09/05/2026 09/05/2021 Colorectal Cancer Screening 09/05/2026 [...] Name Priority Date/Time Associated Diagnosis Comments US VENOUS DUPLEX LE RT Routine 5 4:11 PM EDT T3, FREE Routine 12/20/2024 10:24 AM EDT [...] nephropathy associated with type 2 diabetes mellitus ([facility]HCC) HPV DNA, LOW/HIGH RISK Routine 9:44 AM EDT PAP SMEAR Routine 06/27/2024 9:44 AM EDT Cervical cancer screening HM COLONOSCOPY Routine 09/05/2021 11:04 AM EDT BI MAMMOGRAM SCREENING BILATERAL Routine 06/07/2019 12:30 PM EDT from Last 3 Months or Most Recently Relevant to Health Maintenance Results * US VENOUS DUPLEX LE RT (12/30/2024 4:11 PM EDT) Anatomical Region Laterality Modality Abdomen Ultrasound 12/30/2024 4:11 PM EDT Narrative 12/30/2024 4:45 PM EDT [place] [address] Ultrasound Report Signed Patient: Vikki Willis MR#: [id number] : 1960 Acct:[id number] Age/Sex: 64 / F ADM Date: 12/30/24 Loc: .US Attending Dr: Herminia Ann Ordering Physician: Herminia Ann Date of Service: 12/30/24 Procedure(s): US venous duplex LE RT Accession Number(s): [id number] cc: Herminia Ann; BRADFORD EDGE NP Reason for Exam: SWELLING, R/O DVT EXAMINATION: US TRIPLEX LOWER EXTREMITY, RIGHT CLINICAL INFORMATION: Right lower extremity edema COMPARISON: 06/24/2018 TECHNIQUE: Color-flow triplex imaging with spectral analysis and compression Doppler were performed on the right lower extremity. FINDINGS: Respiratory variation, normal compression and augmented flow are noted throughout the right lower extremity. The visualized common femoral vein, superficial femoral vein, profunda femoral vein, popliteal vein and midcalf peroneal and posterior tibial venous segments show no evidence of deep venous thrombosis. There is increased pulsatility of the right common femoral vein compared to the left. US/US venous duplex LE RT IMPRESSION: No evidence of deep venous thrombosis involving the right lower extremity. Increased pulsations are demonstrated in the waveform of the right common femoral vein. This is a change when compared with 2019. If there has been previous right inguinal catheterization, AV fistula is not entirely ruled out. Electronically signed by: Luis Foster MD 12/30/2024 04:42 PM EDT Dictated By: Luis Foster MD Signed By: <Electronically signed by Luis Foster MD in OV> 12/30/24 1642 DD/ 1611 TD/TT: 12/30/24 1629 Software Team Leader: Procedure Note Donotuseinterpreter, Image - 12/30/2024 [place] [address] Ultrasound Report Signed Patient: Vikki Willis JMR#: [id number] : 1960cct:[id number] Age/Sex: 64 / FADM Date: 12/30/24 Loc: HO.US Attending Dr: Herminia Ann Ordering Physician: Herminia Ann Date of Service: 12/30/24 Procedure(s): US venous duplex LE RT Accession Number(s): [id number] cc: Herminia Ann; BRADFORD EDGE NP Reason for Exam: SWELLING, R/O DVT EXAMINATION: US TRIPLEX LOWER EXTREMITY, RIGHT CLINICAL INFORMATION: Right lower extremity edema COMPARISON: 06/24/2018 TECHNIQUE: Color-flow triplex imaging with spectral analysis and compression Doppler were performed on the right lower extremity. FINDINGS: Respiratory variation, normal compression and augmented flow are noted throughout the right lower extremity. The visualized common femoral vein, superficial femoral vein, profunda femoral vein, popliteal vein and midcalf peroneal and posterior tibial venous segments show no evidence of deep venous thrombosis. There is increased pulsatility of the right common femoral vein compared to the left. US/US venous duplex LE RT IMPRESSION: No evidence of deep venous thrombosis involving the right lower extremity. Increased pulsations are demonstrated in the waveform of the right common femoral vein. This is a change when compared with 2019. If there has been previous right inguinal catheterization, AV fistula is not entirely ruled out. Electronically signed by: Luis Foster MD 12/30/2024 04:42 PM EDT RP Dictated By: Luis Foster MD Signed By: <Electronically signed by Luis Foster MD in OV> 12/30/24 1642 DD/ 1611 TD/TT: 12/30/24 1629 Software Team Leader: us Herminia Appram AUTOMOBILE BODY REPAIR SUPERVISOR IMG US PROCEDURES Final Result * (ABNORMAL) Hemoglobin and Hematocrit (12/20/2024 10:24 AM EDT) [facility] Hemoglobin 8.7(L) 12.0 - 16.0 g/dl [facility] Hematocrit 27.3(L) 37.0 - 47.0 % [facility] Blood Venous blood specimen / Unknown 12/20/2024 10:24 AM EDT 12/20/2024 11:23 AM EDT [facility] LAB BLOOD ORDERABLES Final Resul t Performing Organization Address City/[facility]/ZIP Co de Phone Number [facility] [address] [place] [phone] * (ABNORMAL) T3, Free (12/20/2024 10:24 AM EDT) [facility] T3, Free 5.3(A) 2.3 - 4.2 pg/mL [facility] Comment:THIS TEST WAS PERFOR MED AT:[employer] [address] [phone] WU MD 12/20/2024 10:2 4 AM EDT 12/20/2024 11:23 AM EDT Generic External Data Provider LAB BLOOD ORDERAB LES Final Result Performing Organization Address [facility]/ZIP Co de Phone Number [facility] [address] [place] [phone] * T3, Total (12/20/2024 10:24 AM EDT) T3, Total 162 76 - 181 ng/dL [facility] Comment:THIS TEST WAS PERFOR MED AT:[facility] [place] [id number] WU MD 12/20/2024 10:2 4 AM EDT 12/20/2024 11:23 AM EDT us Generic External Data Provider LAB BLOOD ORDERAB LES Final Result Performing Organization Address City/[facility]/ZIP Co de Phone Number [facility] [address] [place] [phone] * (ABNORMAL) TSH (12/20/2024 10:24 AM EDT) [facility] Thyroid Stimulating Hormone <0.01(L) 0.32 - 4.0 uIU/mL [facility] Comment:TSH 3rd Generation ( [facility]) 12/20/2024 10:2 4 AM EDT 12/20/2024 11:23 AM EDT us Generic External Data Provider LAB BLOOD ORDERAB LES Final Result Performing Organization Address [facility] de Phone Number [facility] [address] [place] [phone] * T4, Free (12/20/2024 10:24 AM EDT) Free T4 (Free Thyroxine) 1.37 0.71 - 1.85 ng/dL [facility] 12/20/2024 10:2 4 AM EDT 12/20/2024 11:23 AM EDT Generic External Data Provider LAB BLOOD ORDERAB LES Final Result Performing Organization Address [facility] Co de Phone Number [facility] [address] [place] [phone] * Lipase (12/20/2024 10:24 AM EDT) Pathologist [facility] Lipase 26 8 - 78 U/L [facility] Blood Venous blood specimen / Unknown 12/20/2024 10:24 AM EDT 12/20/2024 11:23 AM EDT us James Farris MD LAB BLOOD ORDERABLES Final Resul t [facility] [address], [place] [phone] * (ABNORMAL) Comprehensive Metabolic Panel (12/20/2024 10:24 AM EDT) Pathologist [facility] Sodium 141 135 - 145 mmol/L [facility] Potassium 3.6 3.3 - 5.1 mmol/L [facility] Chloride 110(H) 96 - 108 mmol/L [facility] Carbon Dioxide 26 22 - 29 mmol/L [facility] Anion Gap 9(L) 12 - 20 [facility] Urea Nitrogen (BUN) 19(H) 9 - 16 mg/dL [facility] Creatinine, Serum 0.79 0.5 - 1.4 mg/dL [facility] Estimated Glomerular Filt Rate >60 [facility] Comment:Chronic Kidney Disea se: Estimated GFR < 60 mL/min/1.75h2Ngfpnr Kidney Disease: Estimated GFR < 15 mL/min/1.73m2 Glucose 96 60 - 115 mg/dL [facility] Calcium 9.2 8.4 - 10.2 mg/dL [facility] Bilirubin, Total 0.2 0.0 - 1.0 mg/dL [facility] Aspartate Amino Transferase 21 5 - 31 U/L [facility] Alanine Aminotransferase 7 0 - 31 U/L [facility] Total Protein 6.7 6.5 - 8.0 g/dL [facility] Albumin Level 3.2(L) 3.5 - 5.0 g/dL [facility] Alkaline Phosphatase 100 39 - 117 U/L [facility] Blood Venous blood specimen / Unknown 12/20/2024 10:24 AM EDT 12/20/2024 11:23 AM EDT us James Farris MD LAB BLOOD ORDERABLES Final Resul t Performing Organization Address [facility] Co de Phone Number [facility] [address] [place] [phone] * Influenza B (ID NOW Rapid Molecular) (12/20/2024 9:26 AM EDT) Influenza B Negative Negative, Indeterminate [facility] Swab 12/20/2024 9:26 AM EDT us James Farris MD POINT OF CARE TEST ENTER/EDIT OR DERABLES Final Result Performing Organization Address [facility] Co de Phone Number [facility] [address] [place] [phone] * Influenza A (ID NOW Rapid Molecular) (12/20/2024 9:26 AM EDT) [facility] Influenza A Negative Negative, Indeterminate [facility] Swab 12/20/2024 9:26 AM EDT us James Farris MD POINT OF CARE TEST ENTER/EDIT OR DERABLES Final Result Performing Organization Address [facility] de Phone Number [facility] [address] [place] [phone] * POCT Rapid COVID Ag (12/20/2024 9:26 AM EDT) Pathologist [facility] Rapid COVID Ag Negative Swab 12/20/2024 9:26 AM EDT us James Farris MD POINT OF CARE TEST ENTER/EDIT OR DERABLES Final Result * Culture, Urine, Routine (11/10/2024 4:21 PM EDT) Urine Urine specimen obtained by clean catch procedure / Unknown 11/10/2024 4:21 PM EDT 11/10/2024 5:38 PM EDT Comment:UACC Narrative [facility] - 11/12/2024 11:53 AM EDT Urine Culture Report Result Urine Culture > 100,000 cfu/ml Urine Culture Mixed bacterial keven characteristic of Urine Culture urogenital contamination. Specimen Source: Urine clean catch Isa Thompson DO LAB MICROBIOLOGY - GENERAL O RDERABLES Final Result [facility] [address] [place] [phone] * (ABNORMAL) POCT urinalysis dipstick manually [...] DETECTION BY PCR NOT DETECTED Not Detect [facility] BACTERIAL VAGINOSIS DETECTION BY PCR POSITIVE(A) Negative [facility] Comment:The BV organism targ [...] DETECTION BY PCR NOT DETECTED Not Detect [facility] Lyndsey glab krusei PCR NOT DETECTED Not Detect [facility] Swab Vaginal structure / Unknown 11/10/2024 3:52 PM EDT 11/10/2024 5:38 PM EDT Isa Thompson DO LAB MICROBIOLOGY - GENERAL O RDERABLES Final Result [facility] [address] [place] [phone] * (ABNORMAL) Chlamydia/N. Gonorrhoeae RNA, TMA, Urogenitial (11/10/2024 3:52 PM EDT) CT PCR DETECTED(A) Not Detect. [facility] Comment:Detected results may be [...] the ordering clinician orclinical facility [facility] required by state law. NG PCR NOT DETECTED Not Detect. [facility] Comment:A not detected test [...] MICROBIOLOGY - GENERAL O RDERABLES Final Result [facility] [address] [place] [phone] * POCT HGB A1C (10/25/2024 9:15 AM EDT) Hemoglobin A1C 5.4 4.0 - 5.7 % QC Media Lot # [id number] Lot# Expiration Date 621 Blood 10/25/2024 9:15 AM EDT [facility] POINT OF CARE TEST ENTER/EDIT OR DERABLES Final Result * HPV DNA, Low/High Risk (06/27/2024 9:44 AM EDT) HPV High Risk Negative Negative [facility] HPV Genotype 16 Negative Negative [facility] HPV Genotype 18 Negative Negative [facility] Comment:HPV testing performe d at [facility] (CLIA#[id number]), [address] [place] [address].Testing for HPV was performed using the [place] [...] Luciano Olguin CNM LAB BLOOD ORDERABLES Lali sampson Result [facility] [address] [place] [phone] * Pap Smear (06/27/2024 9:44 AM EDT) Swab Cervix uteri structure / Unknown 06/27/2024 9:44 AM EDT 06/28/2024 6:00 AM EDT Narrative [facility] - 06/30/2024 9:34 AM EDT ----- ------- Name: Vikki Willis Age/Sex: 64/F : 1960 Unit#: [id number] Attend Dr: LUCIANO OLGUIN CNM Re06/27/24 Status: DEP REF Location: HO.HHCLNP Disch: ----- ------- SPEC : [id number] RECD: 06/28/24 STATUS: TREVER HAIR NUM: [id number] MONICA: 06/27/[address] [facility] [address]: LUCIANO OLGUIN CNM ENTERED: 06/28/24 SP TYPE: Pap [facility] OT DR: ORDERED: Pap Smear Interpretation Satisfactory for evaluation. Negative for intraepithelial lesion or malignancy. HPV High Risk: Negative HPV Genotyping 16: Negative HPV Genotyping 18: Negative Clinical Information LMP:Post menopausal Previous PAP test:Unknown date/findings Material Received ThinPrep-Cervical ----- ------- Signed (signature on file) BENJAMÍN Chung (ASCP) 06/30/24 0934 ----- ------- END OF REPORT Luciano Olguin [facility] LAB CYTOLOGY ORDERABLES F inal Result [facility] [address] [place] [phone] * Hm Colonoscopy (09/05/2021 11:04 [...] Dewitt NP IMG BI PROCEDURES Final Result from Last 3 Months or Most Recently Relevant to Health Maintenance Insurance [facility] < 65 [address] [phone] [place] [phone] Care Teams Glass Frame Fitter Relationship Specialty Start Date End Date Bradford Edge ANP [address] [place], [place] PCP - General Family Medicine 11/16/20 Eduarda Krishnan MD [address] [place] [address] Hematology and Oncology 06/01/24June [address] [place] [address] 3rd Floor [place], [place] 06/01/24 Smiley Nunez 01/10/25
[2025-01-27 13:33] LABS: Free T4 (Free Thyroxine) 1.20 ng/dL (0.71-1.85); Thyroid Stimulating Hormone < 0.01 uIU/mL (0.32-4.0)
== END 2025-01-27 11:45 | disposition home or self-care (01) ==
LOC: HO.CT 11:44
PROVIDERS: Absent Provider Student in an Organized Health Care Education/Training Program; PCP Nurse Practitioner Primary Care; Visit Provider Physician Assistant Medical
DX: Z12.2 Encounter for screening for malignant neoplasm of respiratory organs (principal); F17.210 Nicotine dependence, cigarettes, uncomplicated; E05.00 Thyrotoxicosis with diffuse goiter without thyrotoxic crisis or storm; E05.90 Thyrotoxicosis, unspecified without thyrotoxic crisis or storm
CPT/HCPCS: 36415; 71271; 84439; 84443; 84480; 84481

== ENCOUNTER → 2025-01-27 16:12 | Outpatient (BNV) | payer OTHER, SELFPAY | PROVIDERS: Absent Provider Student in an Organized Health Care Education/Training Program; PCP Nurse Practitioner Primary Care; Visit Provider Radiology Diagnostic Radiology | DX: Z12.2 Encounter for screening for malignant neoplasm of respiratory organs (principal); Z87.891 Personal history of nicotine dependence; J18.9 Pneumonia, unspecified organism | CPT/HCPCS: 71271 ==

== ENCOUNTER 2025-02-21 14:04 | Outpatient (AMB) | payer OTHER, SELFPAY ==
--- NOTE | 2025-02-21 14:11 | A.OFFVIS_ITS ---
Vital Signs 02/21/25 14:12 Height 4 ft 10 in Weight 120 lb BMI 25.1 BP 157/70 H Blood Pressure Location Lt brachial Position Sitting Pulse 85 Pulse Oximetry (%) 97 Oxygen Delivery Method Room Air Intake Visit Reasons: IBS, GERD Intake Note: Patient follow up for GERD and IBS. Patient cc: constipation on and off. 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 Prevention Chief Required: No Accompanied by: Self / Same As Patient Allergies avocado Allergy (Intermediate, Verified 02/21/25 14:11) nephropathy environmental allergies Allergy (Mild, Verified 02/21/25 14:11) hayfever hydrocodone (From Vicodin) Allergy (Mild, Verified 02/21/25 14:11) ITCHING SHANAE Inhibitors (SHANAE INHIBITORS) Allergy (Unknown, Verified 02/21/25 14:11) UNKNOWN lysol wipes Allergy (Mild, Uncoded 12/28/24 14:06) Hives HPI HPI IBS, GERD: Details: Assessment & Plan (1) GERD (gastroesophageal reflux disease): Code(s): K21.9 - Gastro-esophageal reflux disease without esophagitis Category: Medical (2) IBS (irritable bowel syndrome): Code(s): K58.9 - Irritable bowel syndrome, unspecified Category: Medical Plan She continues on her imipramine, omeprazole 20 mg a day fiber, and Proctosol cream. This continues to work well for her. She will be having her thyroid checked in August, her weight has been going up and down like a yo-yo. She had to give up the orange cat, it bit her and caused hand damage - but the cat found another good home. ROV 6 mos. Medications: New omeprazole 20 mg PO DAILY@0630 30 caps 6RF Refilled imipramine HCl 50 mg (2 x 25 mg) PO BEDTIME 60 tabs 6RF TODAY'S VISIT [facility] Medical History (Updated 02/09/25 @ 13:35 by Eduarda Krishnan MD) Diabetic nephropathy Renal osteodystrophy Depression Migraines Graves' disease Cat bite of forearm Colitis Diverticulitis Seizures Syncope History of TIA (transient ischemic attack) CHF (congestive heart failure) Essential hypertension Hyperlipidemia Type 2 diabetes mellitus with chronic kidney disease Chronic kidney disease, stage 3 Anemia COPD (chronic obstructive pulmonary disease) Asthma JANET (obstructive sleep apnea) Nicotine dependence, cigarettes, uncomplicated Restless leg syndrome Obesity IBS (irritable bowel syndrome) Osteoarthritis Surgical History History of incision and drainage History of appendectomy History of cholecystectomy History of esophagogastroduodenoscopy (EGD) History of colonoscopy History of total left knee replacement (TKR) History of arthroscopy of left knee History of arthroscopy of right knee History of elbow surgery History of surgery on wrist History of carpal tunnel release of both wrists History of lumpectomy of right breast Family History Father Hx of gout Diabetes Mother Diabetes Daughter Pre-diabetes Brother Cancer Social History Household Members: None Housing: Apartment Do you presently have visiting nurse or other home services: Yes Alcohol intake: never Patient Tobacco Use Status: Current everyday Tobacco user Tobacco use type: Cigarette Cigarette Packs Per Day: 1 Cigarettes Per Day: 20.0 Years Smoked: onset 16yo, 3ppd x 47yrs, now 2ppd, >100pyh e-Cigarette/Vaping Use: Never Used Second Hand Smoke Exposure: No Advance Directives Date on File: 02/18/21 service: No Current occupational status: disabled Current occupation: left hand dominant Review of Systems Const Denies fatigue, Denies fever(s), Denies night sweats, Denies poor appetite and Reports weight loss Eyes Details: glasses Reports requires corrective lenses ENT Reports Normal hearing present, Denies dental pain, Denies dysphagia, Denies hearing loss, Denies mouth pain, Denies odynophagia, Denies throat swelling, Denies tongue swelling and Reports other (Dentition adequate) Card Reports no additional complaints Resp Reports no additional complaints GI Details: Denies abdominal pain, Denies melena, Denies bloating, Denies hematochezia, Denies constipation, Reports GI cramping, Denies dysphagia, Denies excessive flatus, Denies early satiety, Reports heartburn, Denies diarrhea, Denies nausea, Denies odynophagia, Denies vomiting and Denies hematemesis Skin/Breast Denies pruritus, Denies lesions, Denies rash and Denies jaundice Neuro Reports Normal hearing present and Denies Abnormal speech present Endo Denies fatigue Aller/Immun Denies throat swelling and Denies tongue swelling Physical Exam Vital Signs: Last Vital Signs Pulse 85 02/21/25 14:12 BP 157/70 H 02/21/25 14:12 Pulse Ox 97 02/21/25 14:12 Oxygen Delivery Method Room Air 02/21/25 14:12 BMI result Body Mass Index 25.1 Const General: cooperative, no acute distress, well developed and well groomed Nutritional Appearance: average body habitus and well nourished Orientation/consciousness: oriented to person, oriented to place and oriented to time Limitations: No language barrier HEENT Head: Yes normocephalic and Yes atraumatic Eyes General: appearance normal, both eyes and all related structures Pupils: Equal, round and reactive pupils present Neck Neck: Yes normal visual inspection and Yes no lymphadenopathy Thyroid: Thyroid normal Resp Effort & Inspection: normal respiratory effort and able to speak in complete sentences Auscultation: clear to auscultation bilaterally Cardio Rate: regular rate Rhythm: regular rhythm Heart sounds: Normal, physiologic split S2 sound present Peripheral pulses: radial pulses present and posterior tibial pulses present GI Inspection: No distended and No Abdominal panniculus present Palpation (GI): Soft to palpation, nontender, no guarding, not rigid and No hepatosplenomegaly present Percussion: Yes normal to percussion Auscultation: normal bowel sounds Rectal Exam - Female: deferred Skin General skin exam: no rashes or lesions noted, turgor normal, skin not dry, no jaundice, No spider nevi and no striae Rashes: no rashes Nails: normal Neuro General: oriented to person, oriented to place and oriented to time Cranial nerves: Yes Equal, round and reactive pupils present and Yes Normal hearing present Speech: No Abnormal speech present Extrem General: Yes normal to inspection, No clubbing, No cyanosis and No edema Psych Appearance: grossly normal and well kempt Mental Status: mental status grossly normal Speech and movement: Normal speech and movement present Affect: normal affect Attitude: cooperative Thought process: Circumstantial thought process present and not confabulating Thought content: Normal thought content present Insight: Limited insight present (Psych) Judgement: Limited judgement present (Psych) Assessment & Plan Assessment & Plan (1) GERD (gastroesophageal reflux disease): Code(s): K21.9 - Gastro-esophageal reflux disease without esophagitis Category: Medical (2) Tubular adenoma of colon: Comment: (TA on 2021 scope repeat 5 years in 2026) Code(s): D12.6 - Benign neoplasm of colon, unspecified Category: Medical (3) IBS (irritable bowel syndrome): Code(s): K58.9 - Irritable bowel syndrome, unspecified Category: Medical Plan She continues on her imipramine, omeprazole 20 mg a day fiber, and Proctosol cream. Subjective Patient presents for routine follow-up and medication review. Reports doing well overall. Continues omeprazole and amitriptyline with good effect. Notes thyroid levels have been fluctuating; has experienced weight changes corresponding with thyroid issues. Denies need for Proctosol cream recently, as hemorrhoid symptoms have been quiet. Relevant Past Medical, Social, and Family History Thyroid disorder followed by endocrinology. Prior unintentional weight loss in the setting of thyroid abnormalities. No history of gastric bypass and not dieting for weight loss. Objective - TSH 0.01 in December; thyroid function currently running ?a little hot? per recent labs. Assessment & Plan Thyroid dysfunction: Thyroid levels fluctuating; recent TSH suppressed at 0.01 with thyroid function running hot. Ongoing management with endocrinology. - Continue follow-up with endocrinology for thyroid medication titration and monitoring. Medication management: Omeprazole and amitriptyline well tolerated and effect karol. - Refilled omeprazole and amitriptyline. Continue current regimen. Hemorrhoids: Currently asymptomatic; not using Proctosol. - Observation; no active treatment needed at this time. Health maintenance: Colonoscopy not due at this time. - Continue routine surveillance per standard schedule. Follow-up in six months. Medications: Refilled imipramine HCl 50 mg (2 x 25 mg) PO BEDTIME 60 tabs 6RF omeprazole 20 mg PO DAILY@0630 30 caps 6RF Coding Level of Care Code Est Pt Level 3 (96118) Diagnoses GERD (gastroesophageal reflux disease) K21.9 Tubular adenoma of colon D12.6 IBS (irritable bowel syndrome) K58.9
[2025-02-21 14:12] VITALS: BP 157/70; PULSE 85; O2SAT 97; BMI 25.1
--- OUTSIDE RECORDS SUMMARY | 2025-02-21 17:58 | XMS_ITS | Encounter Summary ---
Author Organization [employer] Address [address], [place] [address] Care Team Providers Care Surgical Instrument Mechanic Name Role Phone April Dave Primary Care Provider [phone] Eduarda Krishnan MD Unavailable [phone] June Unavailable Reason for Visit * Reason Onset Date Comments Triage 08/22/2022 Encounter Details Date Type Department Care Team ([facility] st Contact Info) Description 08/22/2022 Telephone [facility] [address] [place] [address] April Dave ANP [address] [place] [address] Triage Social History Tobacco Use Types Packs/Day [...] accepted this outcome Please contact pt at [phone] documented in this encounter Plan of Treatment Upcoming Encounters Date Type Department Care Team (Late st Contact Info) Description 04/24/2025 2:00 PM EST Office Visit [facility] [address] [place] [address] Martha Vaz NP [address] [place], [place] [phone] documented as of this encounter Visit Diagnoses Not on filedocumented in this encounter Care Teams Surgical Instrument Mechanic Relationship Specialty Start Date End Date April Dave ANP [address] [place], [place] [phone] PCP - General Family Medicine 11/16/20 Eduarda Krishnan MD [address] [place] [address] Hematology and Oncology 06/01/[address] [place] [address] [address] [place] [address] 06/01/24 Smiley Nunez 01/10/25 documented as of this encounter
--- OUTSIDE RECORDS SUMMARY | 2025-02-21 17:58 | XMS_ITS | Patient Health Record ---
Author Organization [facility] Address [address] [place] [id number] Care Team Providers Care Farm Loan Inspector Name Role Phone Jose Cruz Unavailable [phone] Reason For Referral No Information Plan Of Treatment No Information
--- OUTSIDE RECORDS SUMMARY | 2025-02-21 17:58 | XMS_ITS | Data Portability ---
Author Organization [facility] Address [address] [place] [address] Care Team Providers Care Meat Stuffer Name Role Phone Unavailable Referring Provider HIM CCA OTHER Assessment Encounter Date Assessment Date Assessment LastModified by Organization Details LastModified Time 02/23/2023 02/23/2023 As noted, we were called to see this patient regarding concerns of Evaluation in the field was performed by my dielectric embossing machine operator colleague, as noted above, I provided [...] assessment and plan as documented by the dielectric embossing machine operator. I provided real-time medical direction for [...] in the field was performed by my dielectric embossing machine operator colleague, as noted above, I provided [...] Assessment and Plan as documented by the [employer]. We discussed the diagnostic uncertainty of home [...] to call 911- verbalized understanding of instruction [email or web address] Not available 03/08/2024 00:03:32 07/27/2024 07/27/2024 Impression: [...] pill or obstructions, low suspicion for perforation, RETANNED LEATHER ROLLER, RPA, abscess, meningitis. Unclear if this is [...] of any new or worsening serious symptoms [email or web address] Not available 07/27/2024 13:02:59 Plan of Treatment Reminders Order Date Submit Date Provider Last Modified By Organization Details Last Modified Time Details Appointments None recorded. Lab rapid SARS CoV 2 Ag, QL IA, respiratory specimen 2024 025 [facility], [address] [place] [address], [id number] 5 14:30:50 rapid flu (A+B) [address], [id number] 5 14:28:58 rapid strep group A, throat [address], [id number] 5 14:32:11 BMP, serum or plasma 2023 024 [email or web address] 0 [facility], [address] [place] [address], [id number] 15:47:26 Referral None recorded. Procedures None recorded. Surgeries None recorded. Imaging None recorded. Medication Orders furosemide 10 mg/mL injection solution 2023 024 [email or web address] 0 [facility], [address] [place] [address], [id number], 4 15:47:26 potassium chloride ER 20 mEq tablet,exte nded release 2023 024 [email or web address] 0 [facility], [address] [place] [address], [id number], 4 15:47:26 azithromyci n 250 mg tablet 2022 023 [facility], [address] [place] [address], [id number], 3 12:11:17 Patient TargetsNo targets recorded. Patient [...] Name and Address Organization Details Recorded Time 64863 acetamino phen / hydrocodo ne medicatio n Not available Not available Not available 01/30/2024 87114 2 RxNorm Not Available [facility] - production 4 17:29:12 32251 hydrocodo ne Not available Not available Not available Not available 03/07/2024 5489 RxNorm Not Available [facility] - production 4 12:41:10 87104 tramadol medicatio n Not available Not available Not available 03/07/2024 85736 [facility] 12:41:10 91366 lisinopri l medicatio n Not available Not available Not available 03/07/2024 47085 RxNorm Not Available [facility] - production 4 12:41:10 7573 albuterol medicatio n Not available Not available Not available 01/26/2024 435 RxNorm [facility] Available [facility] 4 03:38:23 Medications Name Sig Start Date Stop Date Status Note LastModified by Organization Details LastModified Time medbox status USE DIRECTED active Not Available Not Available No t Available pulse oximet airial [id number] USE TWICE DAILY DIRECTED active Not Available [...] Available Not Available No t Available FreeStyle [place] Lite kit USE DIRECTED active Not Available [...] active Not Available Not Available Not Avai labmax Proctosol HC 2.5 % topical cream perineal applicator APPLY RECTALLY TWICE DAILY FOR HEMORRHOIDS active Not Available Not Available Not Available Vitals Date Recorded Body temperature Body height Body weight Oxygen saturation Respiratory rate Heart rate Systolic And Diastolic Provider Name and Address Organization Details Last Updated DateTime 5 97.5 [degF] 144.78 cm 77234.6 72 g 98 % 18 /min 110 /min 108/66 mm[Hg] Not Available [facility] - [facility] 5 12:53:59 Date Recorded Body temperature Oxygen saturation Respiratory rate Heart rate Systolic And Diastolic Provider Name and Address Organization Details Last Updated DateTime 4 96.3 [degF] 98 % 18 /min 90 /min 123/98 mm[Hg] Not Available [facility] - [facility] 4 12:44:04 Date Recorded Respiratory rate Heart rate Body height Oxygen saturation Body weight Body temperature Systolic And Diastolic Provider Name and Address Organization Details Last Updated DateTime 4 20 /min 97 /min 147.32 cm 99 % 87923.6 96 g 98.1 [degF] 116/77 mm[Hg] Not Available [facility] - [facility] 4 19:02:23 Date Recorded Body weight Respiratory rate Heart rate Oxygen saturation Body height Body temperature Systolic And Diastolic Provider Name and Address Organization Details Last Updated DateTime 3 70390.5 36 g 18 /min 98 /min 97 % 147.32 cm 100.6 [degF] 141/53 mm[Hg] Not Available [employer] 3 20:20:15 Date Recorded Body height Body mass index (BMI) Body weight Provider Name and Address Organization Details Last Updated DateTime 03/07/2024 147.32 cm 26.8 kg/m2 03347.82 g Rosario Maguire MD [address] [place] [address],[address], [place], [phone] - [employer] [facility] 03/07/2024 15:26:21 Date Recorded Heart rate Body temperature Oxygen saturation Respiratory rate Systolic And Diastolic Provider Name and Address Organization Details Last Updated DateTime 4 96 /min 96.9 [degF] 98 % 18 /min 151/86 mm[Hg] Not Available [employer] 4 15:08:50 Social History None recorded. Functional Status None recorded. Mental Status None recorded. Family History Nothing Reported. Medical History No medical history recorded. Gynecological HistoryNo gynecological history recorded. Obstetrics History GPAL:G 0 P 0 0 0 0 Past Encounters Encounter ID Performer Location Encounter Start Date Encounter Closed Date Diagnosis/Indication Diagnosis SNOMED-CT Code Diagnosis ICD10 Code Diagnosis IMO Codes Diagnosis Note [id number] Reed Carlos MD [facility] - [facility] [address] [place] [phone] 12/13/2021 20:36:20 12/20/2021 13:30:15 Cellulitis 303825014 L03.90 [id number] Yelena Landaverde MD [facility] - [facility] [address] [place] [phone] 02/23/2023 20:14:26 02/23/2023 23:04:54 Community acquired pneumonia 670363538 J18.9 Acute exac erbation of chronic obstructive pulmonary disease 136795556 J44.1 [id number] Winsome Díaz MD [facility] - [facility] [address] [place] [phone] 10/24/2023 12:43:55 07/14/2024 20:07:33 Cat bite 938815343 W55.01XA [id number] Yelena Landaverde MD [facility] [address] [place] [phone] 01/30/2024 19:02:19 02/01/2024 00:29:21 Abdominal pain 62772748 R10.9 Suprapubic pain 60185170 6 R10.30 [id number] Rosario Maguire MD [facility] - [facility] [address] [place] [phone] 03/07/2024 15:08:39 03/08/2024 17:25:37 Peripheral edema 098653852 R60.9 No clinical evidence of CHFBoth legs more edematous than usual, right foot is more swollen than left/no history of trauma but no cords /Homans negative so DVT is unlikely. No warmth or erythema to suggest cellulitis . Primary care team: If patient continues to have pain/sts she will need imaging studies. Patient is quite anemic- her [facility] notes from 02/20 through 02/22/2024 [...] return to 2000 mg per 24 hours [id number] Deni Santos MD [facility] - [facility] [address] [place] [address] 07/27/2024 12:53:57 07/27/2024 14:12:25 Pain in throat 111579034 J02.9 98652 Health Concerns Section Related Observation LastModified by Organization Sandia[employer] ls LastModified Time None Recorded Concern Status LastModified by Organization Details LastModified Time None Recorded Advance Directives Directive None Recorded Payers Insurance Date Sequence Insurance Name Policy Number Policy Sepulveda Covered Member ID Sepulveda Member ID Guarantor Name 02/18/2024 1 [facility] - DOS PRIOR TO 2022 - DUAL ELIGIBLE (MEDICARE REPLACEMENT/AD VANTAGE - HMO) Vikki Willis [id number] Vikki Willis 07/27/2024 1 [facility] - DOS ON OR AFTER 2022 - DUAL ELIGIBLE - CARE HOME OPTIONS AND ONE CARE (MEDICARE REPLACEMENT/AD VANTAGE - HMO) Vikki Willis [id number] Vikki Willis Notes Date Note Type Note [...] CRC RN DID NOT NEED FURTHER INFO [facility] HPI: runny nose, clear mucous, x 1 mo. seen by PCP, given cough medicine with codeine. last appt w PCP was 1 wk ago. still having productive cough. started corcidin last week 5d ago. using combivent and flovent. no sore throat, and some chest congestion Yelena Landaverde MD [address] [facility],[address], [place], [phone], [facility] 02/23/2023 20:29:29 10/24/2023 text/html CRC Nurse Triage Notes (Elizabeth Grijalva): Reason For Request: Patient was bit on the arm by her Kitten. Chief Complaints: Injury PMH: COPD/Asthma, Diabetes, Hypertension Allergies: Albuterol Other Allergies: Vicodin Comments: Tie In Machine Operator verified the member's name//address and phone number.Member [...] .................... .................... .................... .................... .................... .................... . [employer] Note From Destini Castro: Pt with significant bite/scratch almendarez from kitten while both kittens in a fight. Kitten not yet fully vaccinated. A&ox3, vss, afebrile; one puncture site actively bleeding at present. C consulted, pt agreeable to go to ER by POV to have wounds irrigated and evaluated for stitches. Hand and wrist wrapped with clean dry dressing. Red flags reviewed. [employer] Allergies: Albuterol .................... .................... .................... .................... .................... .................... .................... . Disposition: Fulfilled Winsome Díaz MD [address] [place] [address],[address], [place], [phone] 10/24/2023 13:07:25 01/30/2024 text/html CRC Nurse Triage Notes (Figueroa Sanders): Reason For Request: Pt reporting problem going number number 2 primarily but notes having problems going number 1 as well Chief Complaints: Abdominal pain PMH: COPD/Asthma, Hypertension, Anxiety Disorder, Chronic Kidney Disease, Depression, Epilepsy/Seizure Disorder, Diabetes Mellitus Type 2 Comments: Tie In Machine Operator verified the Pt.'s name//address and phone number. [...] scene and unable to make contacted - [place] PD contact and will be dispatching a unit [facility] HPI: pain w trying to urinate, like she has to push. some constipation. .................... .................... .................... .................... .................... .................... .................... . [employer] Note From Bob Ac: Pt chief complaint today of lower abdominal pain most closely related to the Pubic/perineal area. Pt states that she has been having this problem for 4 [address] [facility] visit. Pt states she has been [...] of higher ability for more testing that [facility] cannot provide. Pt is also educated on the possible negative effects that can occur from waiting up t and including possible . Pt decides to wait till tomorrow for further diagnostics and treatmentPt is educated on red flag S&S and informed to call emergency services if any present. .................... .................... .................... .................... .................... .................... .................... . [facility] Consulted: Yelena Landaverde .................... .................... .................... .................... .................... .................... .................... . Disposition: Fulfilled Yelena Landaverde MD [address] [place] [address],[address] [facility], [place], [address], [place] [employer] 01/30/2024 19:47:48 03/07/2024 text/html ROS as noted [...] come into walk in center. Agrees to [facility] for evaluation. Confirmed demographics and allergies. .................... .................... .................... .................... .................... .................... .................... . CRC Nurse Triage Notes (Treasure Childers): Chief Complaints: Swelling PMH: COPD/Asthma, Hypertension, Anxiety Disorder, Chronic Kidney Disease, Depression, Epilepsy/Seizure Disorder, Diabetes Mellitus Type 2, Asthma Comments: [facility] reviewed [employer] Organization Information for [facility] Legal Name: [facility] Transportation Address: [address] [place] [address], [place] [address], Public Health Service Officer: Douglas Bucio MD CLIA No.: [id number] [employer] POC Test Results from James Greene [facility] (15:03:32) pH: 7.39 pH units pCO2: 32.2 mmHg pO2: 41.0 mmHg Na: 135 mmol/L K: 3.7 mmol/L iCa: 1.21 mmol/L Cl: 106 mmol/L TCO2: 19.2 mEq/L Hct: 28 % Hb: 9.5 g/dL Glu: 103 mg/dL Lac: 1.3 mmol/L Cr: 0.77 mg/dL BUN: 7 mg/dL A .................... .................... .................... .................... .................... .................... .................... . [employer] Note From James Greene: This 63-year-old female [...] .................... .................... .................... .................... .................... .................... . [facility] Consulted: Rosario Maguire .................... .................... .................... .................... .................... .................... .................... . Disposition: Fulfilled SEGMD: Patient denies trauma/she denies history of gout. Although her right foot is more swollen than the left she reports her legs are much more edematous than baseline and they are painful. She was hospitalized at [facility] the week of 02/20 with a potassium of 2 diverticulitis and a UTI. Her hemoglobin was noted to go from 11 down to 8 during that visit with no history of GI bleeding. She also has a PMH including but not limited to: Asthma/COPD/HTN/CHF/ /CKD/DM 2/epilepsy/(iron deficiency anemia, hyponatremia and hypokalemia per PCP note 03/03/2024)./Anxiety and depression. Rosario Maguire MD [address] [place] [address],[address], [place], [address], [facility] 03/08/2024 00:13:48 07/27/2024 text/html ROS as noted in the HPI HPI: Member took her morning meds, then c/o sore throat and mild congestion.Member unsure if it was one of the medications that irritated her throat or caused some difficulty swallowing. c/o mild cough and sore throat. Member is denying any other complaints.: note- info provided by Paula from [facility] .................... .................... .................... .................... .................... .................... .................... . CRC Nurse Triage Notes (Trudi Vernon): Reason For Request: Patient has a sore throat, and throat tightness Chief Complaints: Sore Throat, Cough PMH: COPD/Asthma, Hypertension, Anxiety Disorder, Chronic Kidney Disease, Depression, Epilepsy/Seizure Disorder, Diabetes Mellitus Type 2, Asthma PMH Reviewed at 07/27/2024: Allergies Reviewed at 07/27/2024:14 Comments: Member is [...] signs of when to seek emergency care. [employer] Organization Information for Kayleen Castellanos [employer] Legal Name: [employer]. Address: [address] [place] [address], Public Health Service Officer: Bran De La Rosa MD CLIA No.: [id number] [employer] POC Test Results from Kayleen Castellanos Rapid COVID antigen (12:52:02) COVID: - Rapid influenza antigen (12:52:03) Flu: - Rapid strep test (12:52:27) Strep: - .................... .................... .................... .................... .................... .................... .................... . [employer] Note From Kayleen Castellanos: Sent to a [...] covid/flu test: neg; Rapid strep test: neg; [facility] consulted and pt is advised to monitor symptoms. Red flags discussed. Pt has no further questions. [facility] Lab Orders: rapid SARS CoV 2 Ag, QL IA, respiratory specimen: Performed rapid flu (A+B): Performed rapid strep group A, throat: Performed .................... .................... .................... .................... .................... .................... .................... . [facility] Consulted: Deni Santos .................... .................... .................... .................... .................... .................... .................... . Disposition: Fulfilled Deni Santos MD [address] [facility],[address], [place], [address], [place] [employer] 07/27/2024 13:51:25 OBGyn Episode No OBEpisode recorded.
--- OUTSIDE RECORDS SUMMARY | 2025-02-21 17:59 | XMS_ITS | Encounter Summary ---
Author Organization [employer] Address [address] [facility] [address] [place] [address] Care Team Providers Care Assistant Housekeeping Manager Name Role Phone April Dave Primary Care Provider [phone] Eduarda Krishnan MD Unavailable [phone] June Unavailable Encounter Details Date Type Department Care Team (Late st Contact Info) Description 10/09/2023 Orders Only [facility] [address] [place] [address] ProviderRubina MD Social History Tobacco Use Types [...] Description 04/24/2025 2:00 PM EST Office Visit [facility] [address] [place], [place] [phone] Martha Vaz NP [address] [place], [place] [phone] documented as of this encounter Procedures Procedure Name Priority Date/Time Associated Diagnosis Comments HM COLONOSCOPY Routine 09/05/2021 11:04 AM EDT documented in this encounter Results * Hm Colonoscopy (09/05/2021 11:04 AM EDT) us Historical Provider HEALTH MAINTENANCE Final Result documented in this encounter Visit Diagnoses Not on filedocumented in this encounter Care Teams Assistant Housekeeping Manager Relationship Specialty Start Date End Date April Dave ANP [address] [place] [address] PCP - General Family Medicine 11/16/20 Eduarda Krishnan MD [address] [place] [address] Hematology and Oncology 06/01/24June [address] [place] [address] 06/01/24 Smiley Nunez 01/10/25 documented as of this encounter
--- OUTSIDE RECORDS SUMMARY | 2025-02-21 17:59 | XMS_ITS | Clinical Summary ---
Author Organization [facility] Address [address] [place], [place] [phone] Phone Care Team Providers Care Benefits Clerk Name Role Phone Unavailable Primary Care Provider [...] file Medical Devices Not on file Insurance [facility] ONE CARE MEDICARE REPLACEMENT YUDITH RIVERS [id number] [facility] CARE MEDICARE REPLACEMENT CARE MEDICARE REPLACEMENT [facility] CARE MEDICARE REPLACEMENT CARE MEDICARE REPLACEMENT MEDICARE REPLACEMENT CARE MEDICARE REPLACEMENT [place] [address] CARE MEDICARE REPLACEMENT Additional Source Comments The information contained in this document represents components of the legal health record. It is not the complete legal health record.[facility]
--- OUTSIDE RECORDS SUMMARY | 2025-02-21 17:59 | XMS_ITS | Clinical Summary ---
Author Organization [employer] Address [address] [place] [address] Care Team Providers Care Radio Machinist Name Role Phone Bradford Edge AARON Primary Care Provider [phone] Eduarda Krishnan MD Unavailable [phone] June Unavailable Allergies Active Allergy Reactions [...] hours as needed for wheezing. 4 g 11 Active Misc. Devices (Pulse Oximeter For Finger) [...] DAILY NEEDED 100 each 11 024 Active bacitracin-poly myxin b (Polysporin) ointment [...] (Deltasone) 20 MG tabletIndicatio ns:COPD exacerbation (CMS/HCC) ([facility]) 2 tabs po daily for 5 days [...] (Topamax) 100 MG tabletIndicatio ns:Seizure disorder (CMS/HCC) ([facility]) TAKE 1 TABLET BY MOUTH TWICE DAILY IN THE MORNING AND AT BEDTIME 60 tablet 3 02/18/20 25 12:40 PM EST 025 Active cetirizine (ZyrTEC) 10 MG tablet [...] EVERY MORNING 90 capsule 3 025 Active olmesartan (BENIcar) 40 MG tablet TAKE 1 TABLET BY MOUTH EVERY MORNING 90 tablet 3 025 Active levETIRAcetam (Keppra) 500 MG tabletIndicatio ns:Seizure disorder (CMS/HCC) (HCC) TAKE 1 TABLET BY MOUTH TWICE DAILY IN THE MORNING AND AT BEDTIME 60 tablet 3 02/18/20 25 12:40 PM EST 025 Active folic acid (Folvite) 1 MG tabletIndicatio ns:Low folic acid TAKE 1 TABLET BY MOUTH EVERY MORNING 90 tablet 3 025 Active rOPINIRole (Requip) 1 MG tabletIndicatio ns:Restless Leg Syndrome TAKE 1 TABLET BY MOUTH TWICE DAILY IN THE MORNING AND IN THE EVENING 60 tablet 3 02/18/20 25 12:40 PM EST 025 Active folic acid (Folvite) 1 MG tabletIndicatio ns:Low folic acid TAKE 1 TABLET BY MOUTH EVERY MORNING 90 tablet 3 024 2024 Discontinued rOPINIRole (Requip) 1 MG tabletIndicatio ns:Restless Leg Syndrome TAKE 1 TABLET BY MOUTH TWICE DAILY IN THE MORNING AND IN THE EVENING 60 tablet 025 2024 Discontinued Active Problems Problem Noted Date [...] pain 05/05/2017 Stage 3 chronic kidney disease ([facility]/HCC) 017 Allergic rhinitis 01/05/2015 Constipation 01/05/2015 Depressive disorder 01/05/2015 Essential hypertension 01/05/2015 Hyperlipidemia 01/05/2015 Moderate persistent asthma 01/05/2015 Obstructive sleep apnea syndrome 01/05/2015 Primary osteoarthritis involving multiple joints 01/05/2015 Restless legs 01/05/2015 Seizure disorder ([facility]) 01/05/2015 Vitamin D deficiency 01/05/2015 Resolved Problems [...] Encounters Date Type Department Care Team Description 02/21/2025 Telephone [facility] [address] [place] [phone] Martha Vaz NP TelephoneCall 02/13/2025 Refill [facility] [address] [place] [address] Bradford Edge ANP Low folic acid; Restless legs 01/31/2025 Telephone [facility] [address] [place] [address] Bradford Edge ANP No Show 01/30/2025 Telephone [facility] [address] [place] [address] Bradford Edge ANP chart prep 01/27/2025 Orders Only GENERIC EXTERNAL DATA DEPARTMENT Provider, Generic External Data 01/12/2025 Refill [facility] [address] [place] [address] Sandhya Frederick MD Restless legs 01/12/[address] [address] Bradford Edge ANP Seizure disorder ([facility]/HCC) (HCC); Restless legs 12/30/2024 Results Follow-Up [address] [address] Herminia Ann NP US VENOUS DUPLEX LE RT 12/30/[address] [address] Herminia Ann NP DME compression stocking 12/30/2024 Orders Only [address] [address] Bradford Edge ANP Anemia, unspecified type (Primary Dx) 12/30/[address] [address] Herminia Ann NP DME compression stockings 12/29/[address] [address] Bradford Edge ANP Call Back Request 12/27/2024 Orders Only [address] [address] Bradford Edge ANP Diabetic nephropathy associated with type 2 diabetes mellitus ([facility]) (Primary Dx); Essential hypertension; Obstructive sleep apnea syndrome; Hyperthyroidism; Iron deficiency anemia, unspecified iron deficiency anemia type; Chronic obstructive pulmonary disease, unspecified COPD type ([facility]/HCC) 12/26/2024 6:00 PM EDT Office Visit [facility] [address] [address] Herminia Ann NP Swelling of right lower extremity (Primary Dx); Anemia, unspecified type 12/20/2024 9:20 AM EDT Office Visit [facility] [address] [address] James Farris MD Vomiting in adult 12/20/2024 Results Follow-Up [address] [address] Bradford Edge ANP Hemoglobin and Hematocrit 12/20/2024 Orders Only GENERIC EXTERNAL DATA DEPARTMENT Provider, Generic External Data 12/20/2024 Travel 12/04/[address] [address] Bradford Edge ANP Diabetic nephropathy associated with type 2 diabetes mellitus ([facility]) 11/29/2024 Telephone [facility] [address] [place] [address] Bradford Edge ANP January recall 11/22/2024 Refill [facility] [address] [place] [address] Bradford Edge ANP Iron deficiency anemia, unspecified iron deficiency anemia type from Last 3 Months Immunizations Immunization Administration [...] Description 04/24/2025 2:00 PM EST Office Visit [facility] [address] [place] [address] Martha Vaz NP [address] [place], [place] [phone] Health Maintenance Due Date Last Done Comments CT Colonography 1960 FIT DNA/Cologuard 1960 FIT 1960 FOBT 1960 HIV Screening 1960 Lipid Panel 1960 Sigmoidoscopy 1960 Eye Exam 1970 Hepatitis C Screening 1978 RSV Patients and Patients Aged 60 years or older (1 - Risk 50-74 years 1-dose series) 2010 Mammogram 06/06/2021 06/07/2019, 08/19/2017 COVID-19 Vaccine ( season) 2024 05/15/2022, 07/06/2020, 06/08/2020 Influenza Vaccine (#1) 2024 , 03/04/2021, 02/07/2020, Additional history exists Depression Screening 12/30/2024 12/31/2023, 12/31/19 SDOH Screening 12/30/2024 12/31/2023 Diabetes: Hemoglobin A1C 01/25/2025 025, 04/22/2024, 12/31/2023, Additional history exists Alcohol/Substance Use Screening 04/22/2025 04/22/2024 Lung Cancer Screening 07/27/2025 01/27/2025, 024 Disability Screening 10/25/2025 10/25/2024 Diabetes: Foot Exam [...] Procedure Name Priority Date/Time Associated Diagnosis Comments LDCT LUNG SCREENING Routine 01/27/2025 4 :16 PM EDT T3, FREE Routine 01/27/2025 12:06 PM EDT T3, TOTAL Routine 01/27/2025 12:06 PM EDT TSH Routine 01/27/2025 12:06 PM EDT T4, FREE Routine 01/27/2025 12:06 PM EDT US VENOUS DUPLEX LE RT Routine 4:11 PM EDT T3, FREE Routine 12/20/2024 [...] 9:26 AM EDT Vomiting in adult POCT GLYCATED HEMOGLOBIN, TOTAL Routine 10/25/2024 9:15 AM EDT Diabetic nephropathy associated with type 2 diabetes mellitus (CMS/HCC) HPV DNA, LOW/HIGH RISK Routine 9:44 AM EDT PAP SMEAR Routine 06/27/2024 9:44 AM EDT Cervical cancer screening HM COLONOSCOPY Routine 09/05/2021 11:04 AM EDT BI MAMMOGRAM SCREENING BILATERAL Routine 06/07/2019 12:30 PM EDT from Last 3 Months or Most Recently Relevant to Health Maintenance Results * CT Lung Screening Low dose (01/27/2025 4:16 PM EDT) Anatomical Region Laterality Modality Lung Computed Tomogra phy 01/27/2025 4:16 PM EDT Narrative 01/27/2025 5:05 PM EDT [address] [address] [address] Scan Report Signed Patient: Vikki Willis MR#: [id number] : 1960 Acct:[id number] Age/Sex: 64 / F ADM Date: 01/27/25 Loc: HO.CT Attending Dr: Tabitha Hart PA-C Ordering Physician: Tabitha Hart PA-C Date of Service: 01/27/25 Procedure(s): CT lung screening Accession Number(s): [id number] cc: Tabitha Hart PA-C; BRADFORD EDGE NP Report Number: [id number]: Total DLP = 42.00 mGy-cm Reason for Exam: F17.210 - Nicotine dependence, cigarettes, uncomplicated EXAMINATION: CT LUNG SCREENING HISTORY: F17.210 - Nicotine dependence, cigarettes, uncomplicated TECHNIQUE: Low dose axial images were obtained from the sternal notch to upper abdomen without IV contrast per standard departmental protocol. Sagittal and coronal reformatted images were also obtained and reviewed. One or more of the following techniques was used for dose reduction: Automated exposure control, adjustment of the mA and/or kV according to patient size, use of iterative reconstruction technique. DLP: 42 mGy-cm COMPARISON: Review of chest CT scans most recent December 2023 FINDINGS: Lung nodules: 3 mm peripheral or subpleural right upper lobe nodule axial image 19 series 5. 3 mm peripheral or subpleural left upper lobe nodule axial image 76 series 5. 12 x 18 mm groundglass attenuation right lower lobe nodule/atypical cyst axial image 66 series 5. This has areas of cystic change and more solid component inferiorly measuring 2.6 mm axial image 70 series 5. This appears unchanged from most recent December 2019 exam and new from older December 2019 exam. 7 mm peripheral or subpleural calcified right middle lobe nodule adjacent to the minor fissure axial image 73 series 5, stable. Increasing small cluster of nodules in the left upper lobe for example axial image 6873 and 77 series 5. These measure up to 4 mm. these appear peribronchial in the related to airways disease. There is increasing volume loss to the left lower lobe. There are multiple peripheral or subpleural rounded masslike areas of consolidation in the left lower lobe. This has a central swirled appearance and probably represents round atelectasis. This appears increased from December 2023 exam, largest area measuring 1.8 x 4.2 cm axial image 105 series 5. There is subsegmental atelectasis in the inferior segment of the lingula, right middle lobe and posterior medial right lower lobe. Emphysema: moderate Coronary Calcification: moderate Aortic Arch Calcification: mild Potentially Significant Incidentals : none Additional Chest Findings: Normal heart size. There is no pleural or pericardial effusion. Normal caliber thoracic aorta. Mild aortic valve calcification. There are small mediastinal lymph nodes and bilateral axillary lymph nodes similar to previous exam. No enlarged lymph nodes. Visualized upper abdomen: Prominent spleen. This is similar to previous abdominal and pelvic CT January 2024. Degenerative changes of the spine. CT/CT lung screening IMPRESSION: Moderate emphysema. Increasing volume loss in the left lower lobe and peripheral or subpleural round or masslike consolidation probably representing increasing round atelectasis. There is adjacent small left pleural effusion or pleural thickening that appears unchanged. Stable 12 x 18 mm groundglass attenuation nodule with central cystic area versus atypical cyst. Small inferior 3 mm more solid component. This appears unchanged from December 2023 is new from 2019 exam. New mild airways disease in the left upper lobe. Increasing subsegmental atelectasis in the lingula, right middle and right lower lobe. LUNG-RADS ASSESSMENT: Lung-RADS 3: Probably Benign MANAGEMENT: 6 month LDCT Category S: N/A Electronically signed by: Ruthann Thurston MD 01/27/2025 05:02 PM EDT RP Dictated By: Ruthann Thurston MD Signed By: <Electronically signed by Ruthann Thurston MD in OV> 01/27/25 1702 DD/ 1616 TD/TT: 01/27/25 1633 Swimming Pool Maintenance Supervisor: CHRIS Procedure Note Donotuseinterpreter, Image - 01/27/[address] [address] [address] Scan Report Signed Patient: Vikki Willis JMR#: [id number] : 1960cct:[id number] Age/Sex: 64 / FADM Date: 01/27/25 Loc: HO.CT Attending Dr: Tabitha Hart PA-C Ordering Physician: Tabitha Hart PA-C Date of Service: 01/27/25 Procedure(s): CT lung screening Accession Number(s): [id number] cc: Tabitha Hart PA-C; BRADFORD EDGE NP Report Number: [id number]: Total DLP = 42.00 mGy-cm Reason for Exam: F17.210 - Nicotine dependence, cigarettes, uncomplicated EXAMINATION: CT LUNG SCREENING HISTORY: F17.210 - Nicotine dependence, cigarettes, uncomplicated TECHNIQUE: Low dose axial images were obtained from the sternal notch to upper abdomen without IV contrast per standard departmental protocol. Sagittal and coronal reformatted images were also obtained and reviewed. One or more of the following techniques was used for dose reduction: Automated exposure control, adjustment of the mA and/or kV according to patient size, use of iterative reconstruction technique. DLP: 42 mGy-cm COMPARISON: Review of chest CT scans most recent December 2023 FINDINGS: Lung nodules: 3 mm peripheral or subpleural right upper lobe nodule axial image 19 series 5. 3 mm peripheral or subpleural left upper lobe nodule axial image 76 series 5. 12 x 18 mm groundglass attenuation right lower lobe nodule/atypical cyst axial image 66 series 5. This has areas of cystic change and more solid component inferiorly measuring 2.6 mm axial image 70 series 5. This appears unchanged from most recent December 2019 exam and new from older December 2019 exam. 7 mm peripheral or subpleural calcified right middle lobe nodule adjacent to the minor fissure axial image 73 series 5, stable. Increasing small cluster of nodules in the left upper lobe for example axial image 6873 and 77 series 5. These measure up to 4 mm. these appear peribronchial in the related to airways disease. There is increasing volume loss to the left lower lobe. There are multiple peripheral or subpleural rounded masslike areas of consolidation in the left lower lobe. This has a central swirled appearance and probably represents round atelectasis. This appears increased from December 2023 exam, largest area measuring 1.8 x 4.2 cm axial image 105 series 5. There is subsegmental atelectasis in the inferior segment of the lingula, right middle lobe and posterior medial right lower lobe. Emphysema: moderate Coronary Calcification: moderate Aortic Arch Calcification: mild Potentially Significant Incidentals : none Additional Chest Findings: Normal heart size. There is no pleural or pericardial effusion. Normal caliber thoracic aorta. Mild aortic valve calcification. There are small mediastinal lymph nodes and bilateral axillary lymph nodes similar to previous exam. No enlarged lymph nodes. Visualized upper abdomen: Prominent spleen. This is similar to previous abdominal and pelvic CT January 2024. Degenerative changes of the spine. CT/CT lung screening IMPRESSION: Moderate emphysema. Increasing volume loss in the left lower lobe and peripheral or subpleural round or masslike consolidation probably representing increasing round atelectasis. There is adjacent small left pleural effusion or pleural thickening that appears unchanged. Stable 12 x 18 mm groundglass attenuation nodule with central cystic area versus atypical cyst. Small inferior 3 mm more solid component. This appears unchanged from December 2023 is new from 2019 exam. New mild airways disease in the left upper lobe. Increasing subsegmental atelectasis in the lingula, right middle and right lower lobe. LUNG-RADS ASSESSMENT: Lung-RADS 3: Probably Benign MANAGEMENT: 6 month LDCT Category S: N/A Electronically signed by: Ruthann Thurston MD 01/27/2025 05:02 PM EDT Dictated By: Ruthann Thurston MD Signed By: <Electronically signed by Ruthann Thurston MD in OV> 01/27/25 1702 DD/ 1616 TD/TT: 01/27/25 1633 Swimming Pool Maintenance Supervisor: CHRIS [facility] External Provider IMG CT PROCEDURES Final Result * (ABNORMAL) T3, Free (01/27/2025 12:06 PM EDT) Only the most recent of2 resultswithin the time period is included. T3, Free 5.0(A) 2.3 - 4.2 pg/mL [facility] Comment:THIS TEST WAS PERFOR MED AT:[employer] [place] [phone] WU MD 01/27/2025 12:0 6 PM EDT 01/27/2025 12:06 PM EDT Generic External Data Provider LAB BLOOD ORDERAB LES Final Result Performing Organization Address City/[facility]/ZIP Co de Phone Number [facility] [address] [place] [phone] * T3, Total (01/27/2025 12:06 PM EDT) Only the most recent of2 resultswithin the time period is included. T3, Total 161 76 - 181 ng/dL [facility] Comment:THIS TEST WAS PERFOR MED AT:[facility] [address] [phone] WU MD 01/27/2025 12:0 6 PM EDT 01/27/2025 12:06 PM EDT Generic External Data Provider LAB BLOOD ORDERAB LES Final Result Performing Organization Address City/[facility]/ZIP Co de Phone Number [facility] [address] [place] [phone] * (ABNORMAL) TSH (01/27/2025 12:06 PM EDT) Only the most recent of2 resultswithin the time period is included. Thyroid Stimulating Hormone <0.01(L) 0.32 - 4.0 uIU/mL [facility] Comment:TSH 3rd Generation ( [facility]) 01/27/2025 12:0 6 PM EDT 01/27/2025 12:06 PM EDT us Generic External Data Provider LAB BLOOD ORDERAB LES Final Result Performing Organization Address City/[facility] Co de Phone Number [facility] [address] [place] [phone] * T4, Free (01/27/2025 12:06 PM EDT) Only the most recent of2 resultswithin the time period is included. Free T4 (Free Thyroxine) 1.20 0.71 - 1.85 ng/dL [facility] 01/27/2025 12:0 6 PM EDT 01/27/2025 12:06 PM EDT Generic External Data Provider LAB BLOOD ORDERAB LES Final Result Performing Organization Address [facility] Co de Phone Number [facility] [address] [place] [phone] * US VENOUS DUPLEX LE RT (12/30/2024 4:11 PM EDT) Anatomical Region Laterality Modality Abdomen Ultrasound 12/30/2024 4:11 PM EDT Narrative 12/30/2024 4:45 PM EDT [address] [address] Ultrasound Report Signed Patient: Vikki Willis MR#: [id number] : 1960 Acct:[id number] Age/Sex: 64 / F ADM Date: 12/30/24 Loc: HO.US Attending Dr: Herminia Ann Ordering Physician: Herminia Ann Date of Service: 12/30/24 Procedure(s): US venous duplex LE RT Accession Number(s): [id number] cc: Herminia Ann; BRADFORD EDGE NP Reason [...] 12/30/24 1642 DD/ 1611 TD/TT: 12/30/24 1629 Swimming Pool Maintenance Supervisor: Procedure Note Donotuseinterpreter, Image - 12/30/[address] [address] Ultrasound Report Signed Patient: Vikki Willis JMR#: [id number] : 1960cct:[id number] Age/Sex: 64 / FADM Date: 12/30/24 Loc: .US Attending Dr: Herminia Ann Ordering Physician: Herminia Ann Date of Service: 12/30/24 Procedure(s): US venous duplex LE RT Accession Number(s): [id number] cc: Herminia Ann; BRADFORD EDGE NP Reason [...] 12/30/24 1642 DD/ 1611 TD/TT: 12/30/24 1629 Swimming Pool Maintenance Supervisor: Herminia Ann NP IMG US PROCEDURES Final Result * (ABNORMAL) Hemoglobin and Hematocrit (12/20/2024 10:24 AM EDT) Hemoglobin 8.7(L) 12.0 - 16.0 g/dl [facility] Hematocrit 27.3(L) 37.0 - 47.0 % [facility] Blood Venous blood specimen / Unknown 12/20/2024 10:24 AM EDT 12/20/2024 11:23 AM EDT Bradford WALKER LAB BLOOD ORDERABLES Final Resul t [facility] [address] [place] [phone] * Lipase (12/20/2024 10:24 AM EDT) Lipase 26 8 - 78 U/L [facility] Blood Venous blood specimen / Unknown 12/20/2024 10:24 AM EDT 12/20/2024 11:23 AM EDT us James Farris MD LAB BLOOD ORDERABLES Final Resul t [facility] [address] [place] [phone] * (ABNORMAL) Comprehensive Metabolic Panel (12/20/2024 10:24 AM EDT) Sodium 141 135 - 145 mmol/L [facility] Potassium 3.6 3.3 - 5.1 mmol/L [facility] Chloride 110(H) 96 - 108 mmol/L [facility] Carbon Dioxide 26 22 - 29 mmol/L [facility] Anion Gap 9(L) 12 - 20 [facility] Urea Nitrogen (BUN) 19(H) 9 - 16 mg/dL [facility] Creatinine, Serum 0.79 0.5 - 1.4 mg/dL [facility] Estimated Glomerular Filt Rate >60 [facility] Comment:Chronic Kidney Disea se: Estimated GFR < 60 mL/min/1.28f7Xngynh Kidney Disease: Estimated GFR < 15 mL/min/1.73m2 Glucose 96 60 - 115 mg/dL [facility] Calcium 9.2 8.4 - 10.2 mg/dL [facility] Bilirubin, Total 0.2 0.0 - 1.0 mg/dL [facility] Aspartate Amino Transferase 21 5 - 31 U/L [facility] Alanine Aminotransferase 7 0 - 31 U/L [facility] Total Protein 6.7 6.5 - 8.0 g/dL [facility] Albumin Level 3.2(L) 3.5 - 5.0 g/dL [facility] Alkaline Phosphatase 100 39 - 117 U/L [facility] Blood Venous blood specimen / Unknown 12/20/2024 10:24 AM EDT 12/20/2024 11:23 AM EDT us James Farris MD LAB BLOOD ORDERABLES Final Resul t Performing Organization Address [facility] Co de Phone Number [facility] [address] [place] [phone] * Influenza B (ID NOW Rapid Molecular) (12/20/2024 9:26 AM EDT) Pathologist [facility] Influenza B Negative Negative, Indeterminate [facility] Swab 12/20/2024 9:26 AM EDT us James Farris MD POINT OF CARE TEST ENTER/EDIT OR DERABLES Final Result Performing Organization Address [facility] Co de Phone Number [facility] [address] [place] [phone] * Influenza A (ID NOW Rapid Molecular) (12/20/2024 9:26 AM EDT) [facility] Influenza A Negative Negative, Indeterminate [facility] Swab 12/20/2024 9:26 AM EDT us James Farris MD POINT OF CARE TEST ENTER/EDIT OR DERABLES Final Result Performing Organization Address [facility] de Phone Number [facility] [address] [place] [phone] * POCT Rapid COVID Ag (12/20/2024 9:26 AM EDT) [facility] Rapid COVID Ag Negative Swab 12/20/2024 9:26 AM EDT us James Farris MD POINT OF CARE TEST ENTER/EDIT OR DERABLES Final Result * POCT HGB A1C (10/25/2024 9:15 AM EDT) [facility] Hemoglobin A1C 5.4 4.0 - 5.7 % [employer] Lot # [id number] Lot# Expiration Date [id number] Blood 10/25/2024 9:15 AM EDT Bradford WALKER POINT OF CARE TEST ENTER/EDIT OR DERABLES Final Result * HPV DNA, Low/High Risk (06/27/2024 9:44 AM EDT) HPV High Risk Negative Negative [facility] HPV Genotype 16 Negative Negative [facility] HPV Genotype 18 Negative Negative [facility] Comment:HPV testing performe d at [facility] (CLIA#[id number]), [address] [place] [address].Testing for HPV was performed using the [employer] [...] AM EDT 06/28/2024 6:00 AM EDT Luciano TIERNEY LAB BLOOD ORDERABLES Lali l Result [facility] [address] [place] [address] [phone] * Pap Smear (06/27/2024 9:44 AM EDT) Swab Cervix uteri structure / Unknown 06/27/2024 9:44 AM EDT 06/28/2024 6:00 AM EDT Narrative [facility] - 06/30/2024 9:34 AM EDT ----- ------- Name: Vikki Willis Age/Sex: 64/F : 1960 Unit#: [id number] Attend Dr: LUCIANO OLGUIN [facility] Re06/27/24 Status: DEP [facility]: ----- ------- SPEC : [id number] RECD: 06/28/24 STATUS: TREVER REGINALDO NUM: [id number] MONICA: 06/27/[address] [facility] [address]: LUCIANO OLGUIN [facility] ENTERED: 06/28/24 SP TYPE: Pap Smr OTHR DR: ORDERED: Pap Smear Interpretation Satisfactory for evaluation. Negative for intraepithelial lesion or malignancy. HPV High Risk: Negative HPV Genotyping 16: Negative HPV Genotyping 18: Negative Clinical Information LMP:Post menopausal Previous PAP test:Unknown date/findings Material Received ThinPrep-Cervical ----- ------- Signed (signature on file) BENJAMÍN Chung (ASCP) 04/03/25 0934 ----- ------- END OF REPORT Luciano Olguin [facility] CYTOLOGY ORDERABLES F inal Result [facility] [address] [place], [place] [address] [phone] * Hm Colonoscopy (09/05/2021 11:04 AM [...] Most Recently Relevant to Health Maintenance Insurance [facility] ONE CARE < 65 Care Teams Radio Machinist Relationship Specialty Start Date End Date Bradford Edge ANP [address] [place], [place] PCP - General Family Medicine 11/16/20 Eduarda Krishnan MD [address] [place] [address] Hematology and Oncology 06/01/24June [address] 3rd Floor [place], [place] 06/01/24 Smiley Nunez 01/10/25
--- OUTSIDE RECORDS SUMMARY | 2025-02-21 17:59 | XMS_ITS | Encounter Summary ---
Author Organization [employer] Address [address] [facility] 7[address] [place] [address] Care Team Providers Care Aeronautical Engineering Professor Name Role Phone April Dave Primary Care Provider [phone] Eduarda Krishnan MD Unavailable [phone] June Unavailable Reason for Visit * Reason Onset Date Comments Med Refill 05/27/2024 Encounter Details Date Type Department Care Team (Late st Contact Info) Description 05/27/2024 Telephone [facility] [address] [place] [address] April Dave ANP [address] [place] [address] Med Refill Social History Tobacco Use Types [...] EST Script was sent on 05/10/24 to [facility]. * Telephone Encounter - Remington Briggs - 05/27/2024 2:48 PM EST TC from pt requesting medication refill. Medications needing refill : rOPINIRole (Requip) 1 MG tablet To be sent to: [facility] - [place], [place] - [address] [facility] Pt states that she dosent have any more left. documented in this encounter Plan of Treatment Upcoming Encounters Date Type Department Care Team (Late st Contact Info) Description 04/24/2025 2:00 PM EST Office Visit [facility] [address] [place] [address] Martha Vaz NP [address] [place], [place] [phone] documented as of this encounter Visit Diagnoses Not on filedocumented in this encounter Additional Health Concerns Assessment Noted Time PHQ-9 Depression Total Score: 1 12/31/19 24 10:03 AM EDT documented as of this encounter Care Teams Aeronautical Engineering Professor Relationship Specialty Start Date End Date April Dave ANP [address] [place] [address] PCP - General Family Medicine 11/16/20 Eduarda Krishnan MD [address] [place] [address] Hematology and Oncology 06/01/[address] [place] [address] 3rd [place] [address] 06/01/24 Smiley Nunez 01/10/25 documented as of this encounter
--- OUTSIDE RECORDS SUMMARY | 2025-02-21 17:59 | XMS_ITS | Encounter Summary ---
Author Organization [employer] Address [address] [facility] 7[address] [place] [address] Care Team Providers Care Medical Transcription Radiology Name Role Phone April Dave Primary Care Provider [phone] Eduarda Krishnan MD Unavailable [phone] June Unavailable Reason for Visit * Reason Onset Date Comments Hospital Follow-up 12/16/2023 Encounter Details Date Type Department Care Team (Late st Contact Info) Description 12/16/2023 Telephone [facility] [address] [place] [address] April Dave ANP [address] [place] [address] Hospital Follow-up Social History Tobacco Use Types [...] from pt requesting a HDF appt. Hospital: [facility] Date of admission: 12/09/23 Discharge date: 12/11/23 Diagnosed: Hand Surgery documented in this encounter Plan of Treatment Upcoming Encounters Date Type Department Care Team (Late st Contact Info) Description 04/24/2025 2:00 PM EST Office Visit [facility] [address] [place] [address] Martha Vaz NP [address] [place] [address] documented as of this encounter Visit Diagnoses Not on filedocumented in this encounter Care Teams Medical Transcription Radiology Relationship Specialty Start Date End Date April Dave ANP [address] [place] [address] PCP - General Family Medicine 11/16/20 Eduarda Krishnan MD [address] [place] [address] Hematology and Oncology 06/01/24 [address] 3rd [place] [address] 06/01/24 Smiley Nunez 01/10/25 documented as of this encounter
--- OUTSIDE RECORDS SUMMARY | 2025-02-21 17:59 | XMS_ITS | Encounter Summary ---
Author Organization [employer] Address 75 [facility] 7[address] [place] [address] Care Team Providers Care Wallpaperer Helper Name Role Phone April Dave Primary Care Provider [phone] Eduarda Krishnan MD Unavailable [phone] June Unavailable Reason for Visit * Reason Onset Date Comments Pre-op Exam 09/08/2024 Encounter Details Date Type Department Care Team (Late st Contact Info) Description 09/08/2024 Telephone [facility] [address] [place] [address] April Dave ANP [address] [place] [address] Pre-op Exam Social History Tobacco Use Types [...] - 09/08/2024 10:31 AM EDT [place] at [facility] agreed to pre op appointment on 09/23/24 at 2PM. Appointment reminder letter mailed * Telephone Encounter - Gwen Mckenzie - 09/08/2024 9:32 AM EDT Date of Surgery: 10/21/2024 Surgical procedure being done: left shoulder arthroscopy Type of anesthesia: General Lab needed: Yes EKG: Yes Surgeon's name: [facility] Facility name: [facility] Surgeon's office number: [phone] Surgeon's office fax number: [phone] Contact name (person you spoke with): [place] Last office note from surgeon requested: Yes Send Message to Jerri Holt and Serg Almanza documented in this encounter Plan of Treatment Upcoming Encounters Date Type Department Care Team ([facility] Contact Info) Description 04/24/2025 2:00 PM EST Office Visit [facility] [address] [place] [address] Martha Vaz NP [address] [place] [address] documented as of this encounter Visit Diagnoses Not on filedocumented in this encounter Additional Health Concerns Assessment Noted Time PHQ-9 Depression Total Score: 1 12/31/19 24 10:03 AM EDT documented as of this encounter Care Teams Wallpaperer Helper Relationship Specialty Start Date End Date April Dave ANP [address] [place] [address] PCP - General Family Medicine 11/16/20 Eduarda Krishnan MD [address] [place] [address] Hematology and Oncology 06/01/24June [address] [place] [address] Drive 3rd [place] [address] 06/01/24 Smiley Nunez 01/10/25 documented as of this encounter
--- OUTSIDE RECORDS SUMMARY | 2025-02-21 17:59 | XMS_ITS | Clinical Summary ---
Author Organization [facility] Address [address] [place] [address] [address] [place] [address] Phone Care Team Providers Care Relief Master Name Role Phone Inez Dewitt NP Primary Care Provider [phone] Allergies Active Allergy Reactions Criticality Noted Date [...] by mouth 2 Active UltiCare Mini Pen Chadron 31G X 6 MM misc USE FOUR [...] cerebral ischemia 08/25/2017 Peripheral neuropathic pain 05/05/2017 Generalized osteoarthritis 01/05/2015 Moderate persistent asthma 01/05/2015 Essential hypertension 02/23/2012 Migraine 02/23/2012 Obese 02/23/2012 Encounters Date Type Department Care Team Description 01/12/2025 Refill [facility] [address] [place] [address] Alan Nash MD 12/26/2024 2:15 PM EDT Office [facility] [address] [place], [place] [address] Alan Nash MD Chronic kidney disease, stage [...] Visit [facility] [address] [place] [address] [facility] [place] [address] Alan Nash MD [address] [facility] [address] [place] [id number] Health Maintenance Due Date Last Done Comments [...] 11/07/2014, 07/27/2014, Additional history exists Insurance ([id number]) [place] [address] ([id number]) Care Teams Relief Master Relationship Specialty Start Date End Date Inez Dewitt NP [address] [place] [address] PCP - General 04/09/20
--- OUTSIDE RECORDS SUMMARY | 2025-02-21 17:59 | XMS_ITS | Clinical Summary ---
Author Organization [facility] Address [address] [place] [address] Phone Care Team Providers Care Historical Society Director Name Role Phone April Dave NP Primary [...] Care Team (Late st Contact Info) Description 04/10/2025 1:45 PM EST Office Visit Orthopedic Surgery - [place] [address] [address] Terell Nicholas DPM [address] [address] Health Maintenance Due Date Last Done Comments [...] Screening 01/23/2024 Depression Screening 03/30/2024 COVID-19 Vaccine (1 - 2024-2 6 season) 2024 Influenza Vaccine (#1) 2024 RSV [...] patient's age to complete this topic Insurance [facility]IC[facility] Member Subscriber Plan / Payer (Ef fective 2016-Present) Name:JOSE WILLIS Relation to Subscriber:Self Name:Jose Willis Payer ID:[id number] Group ID:[id number] Type:Not on file Address: [place] [address] [id number] Care Teams Historical Society Director Relationship Specialty Start Date End Date April Dave NP [address] [place] [address] PCP - General 01/05/24
--- OUTSIDE RECORDS SUMMARY | 2025-02-21 17:59 | XMS_ITS | Encounter Summary ---
Author Organization [employer] Address 75 [facility] 7t [place] [address] Care Team Providers Care Paperhanger Assistant Name Role Phone April Dave Primary Care Provider Eduarda Krishnan MD Unavailable [phone] June Unavailable Reason for Visit * Reason Comments Med Refill Encounter Details Date Type Department Care Team (Late st Contact Info) Description 01/05/2023 Refill [facility] [address] [place] [address] April Dave ANP [address] [place] [address] Depressive disorder Social History Tobacco Use Types [...] Description 04/24/2025 2:00 PM EST Office Visit [facility] [address] [place] [address] Martha Vaz NP [address] [place] [address] documented as of this encounter Visit Diagnoses Diagnosis Depressive disorder Depressive disorder, not elsewhere classified documented in this encounter Care Teams Paperhanger Assistant Relationship Specialty Start Date End Date April Dave ANP [address] [place] [address] PCP - General Family Medicine 11/16/20 Eduarda Krishnan MD [address] [place] [address] Hematology and Oncology 06/01/24June [address] [place] [address] 3rd [place] [address] 06/01/24 Smiley Nunez 01/10/25 documented as of this encounter
--- OUTSIDE RECORDS SUMMARY | 2025-02-21 17:59 | XMS_ITS | Encounter Summary ---
Author Organization [employer] Address 75 [facility] 7[address] [place] [address] Care Team Providers Care Utilization Review Nurse Name Role Phone April Dave AARON Primary Care Provider Eduarda Krishnan MD Unavailable [phone] June Unavailable Reason for Visit * Reason Onset Date Comments TelephoneCall 02/21/2025 Encounter Details Date Type Department Care Team ([facility] st Contact Info) Description 02/21/2025 Telephone [facility] [address] [place] [address] Martha Vaz NP [address] [place] [address] TelephoneCall Social History Tobacco Use Types Packs/Day Years [...] encounter Miscellaneous Notes * Telephone Encounter - Sara Zayas - 02/21/2025 2:27 PM EST Outgoing call to patient. Patient scheduled for a TP appointment with a a female provider who is accepting patients. Patient verbalized agreement with date and time and is looking forward in meeting new provider. documented in this encounter Plan of Treatment Upcoming Encounters Date Type Department Care Team (Late st Contact Info) Description 04/24/2025 2:00 PM EST Office Visit [facility] [address] [place] [address] Martha Vaz NP [address] [place] [address] documented as of this encounter Visit Diagnoses Not on filedocumented in this encounter Additional Health Concerns Assessment Noted Time PHQ-9 Depression Total Score: 1 12/31/19 24 10:03 AM EDT documented as of this encounter Care Teams Utilization Review Nurse Relationship Specialty Start Date End Date April Dave ANP [address] [place] [address] PCP - General Family Medicine 11/16/20 Eduarda Krishnan MD [address] [place] [address] Hematology and Oncology 06/01/[address] [place] [address] 3rd [place] [address] 06/01/24 Smiley Nunez 01/10/25 documented as of this encounter
--- OUTSIDE RECORDS SUMMARY | 2025-02-21 17:59 | XMS_ITS | Encounter Summary ---
Author Organization [facility] Address [address] [facility] [address] [place] [address] Phone Care Team Providers Care Cigarette Maker Name Role Phone Unavailable Primary Care Provider Unavailabl e Encounter Details Date Type Department Care Team (Latest Contact Info) Description 06/25/2018 Ancillary Orders [facility] [address] [place] [address] [place] [address] Nba Bernstein, [address] [address] Chest pain, unspecified type Social History Tobacco [...] It is not the complete legal health record.[facility]
--- OUTSIDE RECORDS SUMMARY | 2025-02-21 17:59 | XMS_ITS | Encounter Summary ---
Author Organization [employer] Address 75 [facility] 7[address] [place] [address] Care Team Providers Care Party Plan Sales Director Name Role Phone April Dave Primary Care Provider [phone] Eduarda Krsihnan MD Unavailable [phone] June Unavailable Reason for Visit * Reason Onset Date Comments FYI 03/11/2023 Encounter Details Date Type Department Care Team ([facility] st Contact Info) Description 03/11/2023 Telephone [facility] [address] [place] [address] April Dave ANP [address] [place] [address] FYI Social History Tobacco Use Types Packs/Day [...] - 03/11/2023 1:30 PM EST Tc from [facility] with [facility] pulmonology advising PCP, pt preferred [facility] and is booked for 04/29 @ 2:45 PM. documented in this encounter Plan of Treatment Upcoming Encounters Date Type Department Care Team (Late st Contact Info) Description 04/24/2025 2:00 PM EST Office Visit [facility] [address] [place] [address] Martha Vaz NP [address] [place] [address] documented as of this encounter Visit Diagnoses Not on filedocumented in this encounter Care Teams Party Plan Sales Director Relationship Specialty Start Date End Date April Dave ANP [address] [place] [address] PCP - General Family Medicine 11/16/20 Eduarda Krishnan MD [address] [place] [address] Hematology and Oncology 06/01/24June [address] [place] [address] Drive 3rd [place] [address] 06/01/24 Smiley Nunez 01/10/25 documented as of this encounter
--- OUTSIDE RECORDS SUMMARY | 2025-02-21 17:59 | XMS_ITS | Encounter Summary ---
Author Organization [employer] Address 75 [facility] 7t [place] [address] Care Team Providers Care Ortho Assistant Name Role Phone April Dave Primary Care Provider [phone] Eduarda Krishnan MD Unavailable [phone] June Unavailable Reason for Visit * Reason Comments Med Refill Encounter Details Date Type Department Care Team (Late st Contact Info) Description 06/09/2023 Refill [facility] [address] [place] [address] April Dave ANP [address] [place] [address] Diabetic nephropathy associated with type 2 diabetes [...] 04/24/2025 2:00 PM EST Office Visit [facility] [address] [place] [address] Martha Vaz NP 230 [place] [address] documented as of this encounter Visit Diagnoses Diagnosis Diabetic nephropathy associated with type 2 diabetes mellitus (HCC) documented in this encounter Care Teams Ortho Assistant Relationship Specialty Start Date End Date April Dave ANP [address] [place] [address] PCP - General Family Medicine 11/16/20 Eduarda Krishnan MD [address] [place] [address] Hematology and Oncology 06/01/[address] 3rd [place] [address] 06/01/24 Smiley Nunez 01/10/25 documented as of this encounter
--- OUTSIDE RECORDS SUMMARY | 2025-02-21 17:59 | XMS_ITS | Encounter Summary ---
Author Organization [employer] Address [address] [place] [address] [address] [address] Care Team Providers Care Head Of Marketing Analytics Name Role Phone April Dave Primary Care Provider [phone] Eduarda Krishnan MD Unavailable [phone] June Unavailable Encounter Details Date Type Department Care Team (Late st Contact Info) Description 02/28/2022 Orders Only [facility] [address] [place] [address] Emily Pitts, RN [address] [place] [address] Social History Tobacco Use Types Packs/Day Years [...] Description 04/24/2025 2:00 PM EST Office Visit [facility] [address] [place] [address] Martha Vaz NP [address] [place] [address] documented as of this encounter Visit Diagnoses Not on filedocumented in this encounter Care Teams Head Of Marketing Analytics Relationship Specialty Start Date End Date April Dave ANP [address] [place] [address] PCP - General Family Medicine 11/16/20 Eduarda Krishnan MD [address] [place] [address] Hematology and Oncology 06/01/24June [address] [place] [address] 3rd [place] [address] 06/01/24 Smiley Nunez 01/10/25 documented as of this encounter
== END 2025-02-21 14:39 | disposition home or self-care (01) ==
LOC: HO.HGI 14:05
PROVIDERS: PCP Nurse Practitioner Primary Care; Visit Provider Nurse Practitioner
DX: K21.9 Gastro-esophageal reflux disease without esophagitis (principal); D12.6 Benign neoplasm of colon, unspecified; K58.9 Irritable bowel syndrome, unspecified
CPT/HCPCS: 99213

== ENCOUNTER → 2025-02-21 14:04 | Outpatient (BNVA) | payer OTHER, SELFPAY | PROVIDERS: PCP Nurse Practitioner Primary Care; Visit Provider Nurse Practitioner | DX: K21.9 Gastro-esophageal reflux disease without esophagitis (principal); K58.9 Irritable bowel syndrome, unspecified; D12.6 Benign neoplasm of colon, unspecified; E07.9 Disorder of thyroid, unspecified; Z79.899 Other long term (current) drug therapy | CPT/HCPCS: 99212 ==

== ENCOUNTER 2025-03-29 13:50 | Outpatient (AMB) | payer OTHER, SELFPAY ==
--- NOTE | 2025-03-29 13:54 | A.OFFVIS_ITS ---
Vital Signs 03/29/25 13:55 Height 4 ft 10 in BP 160/62 H Blood Pressure Location Lt brachial Position Sitting Pulse 77 Pulse Source Pulse Oximeter Pulse Oximetry (%) 98 Oxygen Delivery Method Room Air Intake Visit Reasons: Hyperthyroidism Intake Note: Patient presents here today for Hyperthyroidism follow-up after completion of work-up: Last seen by Dr Eunice Jade MD Thyroid Function Test: Labs completed on 01/27/2025 Tip Cementer Required: No Accompanied by: Self / Same As Patient Allergies avocado Allergy (Intermediate, Verified 03/29/25 13:59) nephropathy environmental allergies Allergy (Mild, Verified 03/29/25 13:59) hayfever hydrocodone (From Vicodin) Allergy (Mild, Verified 03/29/25 13:59) ITCHING SHANAE Inhibitors (SHANAE INHIBITORS) Allergy (Unknown, Verified 03/29/25 13:59) UNKNOWN lysol wipes Allergy (Mild, Uncoded 03/29/25 13:59) Hives HPI Comments Details: 64-year-old female coming in today for follow up of hyperthyroidism. 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 Diagnosed with hyperthyroidism in July 2024 when TSH was suppressed at less than 0.01 with a elevated free T4 1.89 these are labs from 08/02/2024. Previously she has had suppressed TSH at least since 2022 with normal free T4 levels consistent with subclinical hyperthyroidism that has now progressed to overt hyperthyroidism. Labs from December 2023 showed positive TSH receptor antibody 3.05 consistent with Graves disease. Methimazole 5 mg daily started July 2024 Taking it every morning She has been on metoprolol 25 mg extended release daily for hypertension for s ome years. Reports palpitations since the past 3-4 months. No tremors. Denies diarrhea. Denies heat intolerance and diaphoresis. No skin hair changes. some intermittent anxiety. Lost 40 lb s over the past year , and 10 lbs in the last 6 months. Patient currently denies changes in appearance of eyes or vision changes. ? Patient denies any difficulty swallowing, pain on swallowing or voice changes or difficulty breathing. Patient denies any history of childhood neck radiation. Denies having ever used lithium, amiodarone or biotin supplements. Patient denies any family history of thyroid cancer or thyroid disease. Smokes 4-5 cigarettes a day 09/20/2024: TSH less than 0.01, free T4 1.47, free T3 elevated at 7.6, total T3 elevated at 245, TSI antibodies elevated at 417, TPO antibodies elevated at 321 , was reporting some palpitations, and was tachycardic metoprolol was increased to 50 mg daily 09/26/2024: Methimazole increased from 5 mg daily to 10 mg daily Interval history 03/29/25 She reports taking 10 mg twice since ?last week by her PCP- It was our office, and she reported to be taking 10mg only at that time She seems confused about her medications and how has been monitoring Per records review, she was supposed to be taking 1 tab am, 1/2 tab pm Reports palpitations on/off every other day She reports losing weight, unclear amount No shaking of the hands, no diarrhea Physical exam: General: Well appearing. NAD. Neck/Thyroid: Thyroid not palpable, no nodules. Eyes: No conjunctival injection, not lid lag or proptosis CV: RRR, no murmur. No edema. Resp:Lungs clear to auscultation bilaterally Abdomen: Soft, nontender. nondistended Extremities/Neuro: No weakness or tremor of outstretched hands Laboratory Tests 01/27/25 02/09/25 12:06 13:49 WBC 2.5 L RBC 3.74 L Hgb 10.1 L Immature Gran % (Auto) 0.4 Neut % (Auto) 45.0 Lymph % (Auto) 46.2 H Absolute Neuts (auto) 1.1 L TSH < 0.01 L Free T4 1.20 Free T3 5.0 H Total T3 161 Laboratory Tests 02/02/23 12/31/23 01/04/24 15:30 11:11 12:06 WBC RBC Hgb Hct Neut % (Auto) Absolute Neuts (auto) Total Bilirubin Direct Bilirubin AST ALT Alkaline Phosphatase TSH < 0.01 L < 0.01 L < 0.01 L Free T4 1.05 1.14 1.04 TSH Receptor Ab 3.05 H 02/21/24 08/02/24 08/12/24 05:25 16:31 17:15 WBC 5.8 RBC 3.57 L Hgb 9.6 L Hct 30.4 L Neut % (Auto) 39.2 L Absolute Neuts (auto) 2.3 Total Bilirubin 0.4 Direct Bilirubin 0.2 AST 26 ALT 18 Alkaline Phosphatase 95 TSH 0.01 L < 0.01 L Free T4 1.29 1.89 H TSH Receptor Ab Laboratory Tests 01/04/24 08/12/24 09/20/24 12:06 17:15 12:03 WBC 5.8 Absolute Neuts (auto) 2.3 AST ALT Alkaline Phosphatase TSH < 0.01 L Free T4 1.47 Free T3 7.6 H Total T3 245 H Thyroid Stim Immunoglob 417 H TSH Receptor Ab 3.05 H Thyroid Peroxidase Ab 321 H 10/13/24 11:27 WBC Absolute Neuts (auto) AST 18 ALT 12 Alkaline Phosphatase 121 H TSH Free T4 Free T3 Total T3 Thyroid Stim Immunoglob TSH Receptor Ab Thyroid Peroxidase Ab [facility] Medical History (Updated 02/09/25 @ 13:35 by Eduarda Krishnan MD) Diabetic nephropathy Renal osteodystrophy Depression Migraines Graves' disease Cat bite of forearm Colitis Diverticulitis Seizures Syncope History of TIA (transient ischemic attack) CHF (congestive heart failure) Essential hypertension Hyperlipidemia Type 2 diabetes mellitus with chronic kidney disease Chronic kidney disease, stage 3 Anemia COPD (chronic obstructive pulmonary disease) Asthma JANET (obstructive sleep apnea) Nicotine dependence, cigarettes, uncomplicated Restless leg syndrome Obesity IBS (irritable bowel syndrome) Osteoarthritis Surgical History History of incision and drainage History of appendectomy History of cholecystectomy History of esophagogastroduodenoscopy (EGD) History of colonoscopy History of total left knee replacement (TKR) History of arthroscopy of left knee History of arthroscopy of right knee History of elbow surgery History of surgery on wrist History of carpal tunnel release of both wrists History of lumpectomy of right breast Family History Father Hx of gout Diabetes Mother Diabetes Daughter Pre-diabetes Brother Cancer Social History Household Members: None Housing: Apartment Do you presently have visiting nurse or other home services: Yes Alcohol intake: never Patient Tobacco Use Status: Current everyday Tobacco user Tobacco use type: Cigarette Cigarette Packs Per Day: 1 Cigarettes Per Day: 20.0 Years Smoked: onset 16yo, 3ppd x 47yrs, now 2ppd, >100pyh e-Cigarette/Vaping Use: Never Used Second Hand Smoke Exposure: No Advance Directives Date on File: 02/18/21 service: No Current occupational status: disabled Current occupation: left hand dominant Physical Exam Vital Signs: Last Vital Signs Pulse 77 03/29/25 13:55 BP 160/62 H 03/29/25 13:55 Pulse Ox 98 03/29/25 13:55 Oxygen Delivery Method Room Air 03/29/25 13:55 Assessment & Plan Assessment & Plan (1) Hyperthyroidism: Code(s): E05.90 - Thyrotoxicosis, unspecified without thyrotoxic crisis or storm Category: Medical Plan: 64-year-old female here today for follow up of hyperthyroidism. Diagnosed in July 2024, with labs showing suppressed TSH less than 0.01, free T4 elevated at 1.89. TSH receptor antibodies elevated from December 2023 consistent with Graves disease. Before that she has had subclinical hyperthyroidism for at least the past 3 years which has now progressed to overt hyperthyroidism. She was started on methimazole 5 mg daily by primary care provider in July 2024. She endorses adherence to the medication. 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 Interestingly she does not have a goiter. She also does not have any signs for Graves orbitopathy. Labs done 09/21/2024 showed total T3 was still quite elevated with suppressed TSH. We went about her methimazole to 10 mg daily. She is taking this now. She was supposed to do repeat blood work prior to this appointment but can not done. Discussed with patient that about 30% of the patients have remission after 12-18 months of treatment with methimazole. More recent data has shown longer periods of treatment resulting in better remission rates as well. At this time we will plan to continue treatment with methimazole and continue adjusting the dose as needed. In the long run if she does not have remission, we also briefly discussed definitive therapy options of radioactive iodine ablation and total thyroidectomy and the need for requiring long-term levothyroxine therapy after those procedures. Patient had her MMI dose increased to 15mg in by Dr. Jade, and it was increased to 10mg am-5pm on after I reviewed her labs (she erroneously thought it was her PCP). At this time, we will not make any changes in her labs as she just got her medication dose change. She has labs in place to recheck TFTs in 6 weeks from that change. Plan: -continue methimazole 10 mg am and 5mg am -ordered TSH, free T4, total T3 -follow up in 3 months -continue metoprolol to 50 mg extended release daily (2) Graves' disease: Code(s): E05.00 - Thyrotoxicosis with diffuse goiter without thyrotoxic crisis or storm Category: Medical Plan: See above Plan 30 minutes spent reviewing previous records, labs, imaging, education and documenting in the chart Coding Level of Care Code Est Pt Level 4 (44537) Add On Problem Visit Only Diagnoses Hyperthyroidism E05.90 Graves' disease E05.00
[2025-03-29 13:55] VITALS: BP 160/62; PULSE 77; O2SAT 98
--- OUTSIDE RECORDS SUMMARY | 2025-03-29 15:09 | XMS_ITS | Encounter Summary ---
Author Organization [employer] Address [address] [facility] [address] [place] [address] Care Team Providers Care Recycling Crew Supervisor Name Role Phone April Dave Primary Care Provider [phone] Eduarda Krishnan MD Unavailable [phone] June Unavailable Reason for Visit * Reason Comments Med Refill Encounter Details Date Type Department Care Team (Late st Contact Info) Description 06/09/2023 Refill [facility] [address] [place] [address] April Dave ANP [address] [place] [address] Diabetic nephropathy associated with type 2 diabetes [...] Patient states she sees Temitope Rico at [facility] and has a follow-up on 06/30/23. She is not sure whether/when a colonoscopy will be recommended. She states she will sweet pickle maker folic acid supplement and ropinirole from pharmacy [...] and/or other concerns arise. TC placed to [facility] pharmacy and they stated they were just [...] Description 04/24/2025 2:00 PM EST Office Visit [facility] [address] [place] [address] Martha Vaz NP [address] [place] [address] documented as of this encounter Visit Diagnoses Diagnosis Diabetic nephropathy associated with type 2 diabetes mellitus (HCC) documented in this encounter Care Teams Recycling Crew Supervisor Relationship Specialty Start Date End Date April Dave ANP [address] [place] [address] PCP - General Family Medicine 11/16/20 Eduarda Krishnan MD [address] [place] [address] Hematology and Oncology 06/01/[address] 3rd [place] [address] 06/01/24 Smiley Nunez 01/10/25 documented as of this encounter
--- OUTSIDE RECORDS SUMMARY | 2025-03-29 15:09 | XMS_ITS | Clinical Summary ---
Author Organization [employer] Address [address] [facility] [address] [place] [address] Care Team Providers Care Tile Designer Name Role Phone Bradford Edge AARON Primary Care Provider [phone] Eduarda Krishnan MD Unavailable [phone] June Unavailable Allergies Active Allergy Reactions [...] 24 hr tablet 50 mg. 025 Active cetirizine (ZyrTEC) 10 MG tablet [...] (Keppra) 500 MG tabletIndicatio ns:Seizure disorder (CMS/HCC) ([facility]) TAKE 1 TABLET BY MOUTH TWICE DAILY [...] AND IN THE EVENING 60 tablet 3 03/28/20 25 3:57 PM EST 025 Active topiramate (Topamax) 100 MG tabletIndicatio ns:Seizure disorder (CMS/HCC) (HCC) TAKE 1 TABLET BY MOUTH TWICE DAILY IN THE MORNING AND AT BEDTIME 60 tablet 3 03/28/20 25 3:58 PM EST 025 Active topiramate (Topamax) 100 MG tabletIndicatio ns:Seizure disorder (CMS/HCC) ([facility]) TAKE 1 TABLET BY MOUTH TWICE DAILY IN THE MORNING AND AT BEDTIME 60 tablet 3 02/18/20 25 12:40 PM EST 025 2024 Discontinued Active Problems Problem Noted [...] pain 05/05/2017 Stage 3 chronic kidney disease ([facility]) 017 Allergic rhinitis 01/05/2015 Constipation 01/05/2015 Depressive disorder 01/05/2015 Essential hypertension 01/05/2015 Hyperlipidemia 01/05/2015 Moderate persistent asthma 01/05/2015 Obstructive sleep apnea syndrome 01/05/2015 Primary osteoarthritis involving multiple joints 01/05/2015 Restless legs 01/05/2015 Seizure disorder ([facility]) 01/05/2015 Vitamin D deficiency 01/05/2015 [...] Encounters Date Type Department Care Team Description 03/08/2025 Refill [facility] [address] [place] [address] Gypsy, Evelia, BUD Seizure disorder ([facility]) ([facility]) 02/28/2025 Telephone [facility] [address] [place] [address] Bradford Edge ANP Durable Medical Equipment 02/27/2025 Results Follow-Up [facility] [address] [place] [address] Lung Screening Low dose, T4, Free, TSH, Additional followed-up results: 2 02/21/2025 Telephone [facility] [address] [place] [address] Martha Vaz NP TelephoneCall 02/13/2025 Refill [facility] [address] [place] [address] Bradford Edge ANP Low folic acid; Restless legs 01/31/2025 Telephone [facility] [address] [place] [address] Bradford Edge ANP No Show 01/30/[address] [address] Bradford Edge ANP chart prep 01/27/2025 Orders Only GENERIC EXTERNAL DATA DEPARTMENT Provider, Generic External Data 01/12/2025 Refill [facility] [address] [place] [phone] Sandhya Frederick MD Restless legs 01/12/2025 Refill [facility] [address] [place] [address] Bradford Edge ANP Seizure disorder (CMS/HCC) (HCC); Restless legs 12/30/2024 Results Follow-Up [address] [address] Herminia Ann NP US VENOUS DUPLEX LE RT 12/30/[address] [address] Herminia Ann NP DME compression stocking 12/30/2024 Orders Only [address] [address] Bradford Edge ANP Anemia, unspecified type (Primary Dx) 12/30/[address] [address] Herminia Ann NP DME compression stockings 12/29/[address] [address] Bradford Edge ANP Call Back Request 12/27/2024 Orders Only [address] [address] Bradford Edge ANP Diabetic nephropathy associated with type 2 diabetes mellitus ([facility]) (Primary Dx); Essential hypertension; Obstructive sleep apnea syndrome; Hyperthyroidism; Iron deficiency anemia, unspecified iron deficiency anemia type; Chronic obstructive pulmonary disease, unspecified COPD type ([facility]/HCC) from Last 3 Months Immunizations Immunization Administration [...] your housing situation today? I have kris sing 01/12/[address] you li [...] 2:00 PM EST Office Visit [facility] [address] [place] [address] Martha Vaz, TRI [address] [place] [address] Health Maintenance Due Date Last Done Comments [...] EDT US VENOUS DUPLEX LE RT Routine 12/30/2024 4:11 PM EDT POCT GLYCATED HEMOGLOBIN, TOTAL Routine 10/25/2024 9:15 AM EDT Diabetic nephropathy associated with type 2 diabetes mellitus (CMS/HCC) HPV DNA, LOW/HIGH RISK Routine 06/27/2024 9:44 [...] PM EDT Narrative 01/27/2025 5:05 PM EDT [place] [address] CT Scan Report Signed Patient: Vikki Willis MR#: [id number] : 1960 Acct:[id number] Age/Sex: 64 / F ADM Date: 01/27/25 Loc: HO.CT Attending Dr: Tabitha Hart PA-C Ordering Physician: Tabitha Hart PA-C Date of Service: 01/27/25 Procedure(s): CT lung screening Accession Number(s): [id number] cc: Tabitha Hart PA-C; BRADFORD EDGE NP Report Number: [id number]: Total DLP = 42.00 mGy-cm Reason for [...] 01/27/25 1702 DD/ 1616 TD/TT: 01/27/25 1633 Tying In Machine Operator: CHRIS Procedure Note Donotuseinterpreter, Image - 01/27/[address] [address] [address] Scan Report Signed Patient: Vikki Willis JMR#: [id number] : 1960cct:[id number] Age/Sex: 64 / FADM Date: 01/27/25 Loc: HO.CT Attending Dr: Tabitha Hart PA-C Ordering Physician: Tabitha Hart PA-C Date of Service: 01/27/25 Procedure(s): CT lung screening Accession Number(s): [id number] cc: Tabitha Hart PA-C; BRADFORD EDGE NP Report Number: [id number]: Total DLP = 42.00 mGy-cm Reason for [...] 01/27/25 1702 DD/ 1616 TD/TT: 01/27/25 1633 Tying In Machine Operator: CHRIS [facility] External Provider IMG CT PROCEDURES Final Result * (ABNORMAL) T3, Free (01/27/2025 12:06 PM EDT) T3, Free 5.0(A) 2.3 - 4.2 pg/mL [facility] Comment:THIS TEST WAS PERFOR MED AT:[employer] [place] [phone] WU MD 01/27/2025 12:0 6 PM EDT 01/27/2025 12:06 PM EDT Generic External Data Provider LAB BLOOD ORDERAB LES Final Result Performing Organization Address [facility]/ZIP Co de Phone Number [facility] [address] [place] [phone] * T3, Total (01/27/2025 12:06 PM EDT) Pathologist [facility] T3, Total 161 76 - 181 ng/dL [facility] Comment:THIS TEST WAS PERFOR MED AT:[employer] [place] [phone] WU MD 01/27/2025 12:0 6 PM EDT 01/27/2025 12:06 PM EDT Generic External Data Provider LAB BLOOD ORDERAB LES Final Result Performing Organization Address [facility] Co de Phone Number [facility] [address] [place] [phone] * (ABNORMAL) TSH (01/27/2025 12:06 PM EDT) Pathologist [facility] Thyroid Stimulating Hormone <0.01(L) 0.32 - 4.0 uIU/mL [facility] Comment:TSH 3rd Generation ( [facility]) 01/27/2025 12:0 6 PM EDT 01/27/2025 12:06 PM EDT us Generic External Data Provider LAB BLOOD ORDERAB LES Final Result Performing Organization Address [facility] de Phone Number [facility] [address] [place] [phone] * T4, Free (01/27/2025 12:06 PM EDT) Free T4 (Free Thyroxine) 1.20 0.71 - 1.85 ng/dL [facility] 01/27/2025 12:0 6 PM EDT 01/27/2025 12:06 PM EDT Generic External Data Provider LAB BLOOD ORDERAB LES Final Result Performing Organization Address [facility] de Phone Number [facility] [address] [place] [phone] * US VENOUS DUPLEX LE RT (12/30/2024 4:11 PM EDT) Anatomical Region Laterality Modality Abdomen Ultrasound 12/30/2024 4:11 PM EDT Narrative 12/30/2024 4:45 PM EDT [address] [address] Ultrasound Report Signed Patient: Vikki Willis MR#: [id number] : 1960 Acct:[id number] Age/Sex: 64 / F ADM Date: 12/30/24 Loc: HO.US Attending Dr: Herminia Ann Ordering Physician: Herminia Ann Date of Service: 12/30/24 Procedure(s): US venous duplex LE RT Accession Number(s): [id number] cc: Herminia Ann; BRADFORD EDGE NP Reason [...] 12/30/24 1642 DD/ 1611 TD/TT: 12/30/24 1629 Tying In Machine Operator: Procedure Note Donotuseinterpreter, Image - 12/30/2024 [place] [address] Ultrasound Report Signed Patient: Vikki Willis JMR#: [id number] : 1960cct:[id number] Age/Sex: 64 / FADM Date: 12/30/24 Loc: HO. Attending Dr: Herminia Ann Ordering Physician: Herminia Ann Date of Service: 12/30/24 Procedure(s): US venous duplex LE RT Accession Number(s): [id number] cc: Herminia Ann; BRADFORD EDGE NP Reason [...] 12/30/24 1642 DD/ 1611 TD/TT: 12/30/24 1629 Tying In Machine Operator: Herminia Stm SQL SERVER DBA DEVELOPER IMG US PROCEDURES Final Result * POCT HGB A1C (10/25/2024 9:15 AM EDT) Hemoglobin A1C 5.4 4.0 - 5.7 % QC Media Lot # [id number] Lot# Expiration Date Blood 10/25/2024 9:15 AM EDT us Bradford WALKER POINT OF CARE TEST ENTER/EDIT OR DERABLES Final Result * HPV DNA, Low/High Risk (06/27/2024 9:44 AM EDT) HPV High Risk Negative Negative [facility] HPV Genotype 16 Negative Negative [facility] HPV Genotype 18 Negative Negative [facility] Comment:HPV testing performe d at [facility] (CLIA#[id number]), [address] [place] [address].Testing for HPV was performed using the [employer]~Flow™0system. The presence of HPV in the female [...] CNM LAB BLOOD ORDERABLES Lali l Result [facility] [address] [place] [phone] * Pap Smear (06/27/2024 9:44 AM EDT) Swab Cervix uteri structure / Unknown 06/27/2024 9:44 AM EDT 06/28/2024 6:00 AM EDT Narrative [facility] - 06/30/2024 9:34 AM EDT ----- ------- Name: Vikki Willis Age/Sex: 64/F : 1960 Unit#: [id number] Attend Dr: LUCIANO OLGUIN CNM Re06/27/24 Status: DEP REF Location: HO.HHCLNP Disch: ----- ------- SPEC : [id number] RECD: 06/28/24 STATUS: TREVER HAIR NUM: [id number] MONICA: 06/27/24[address] [facility] [address]: LUCIANO OLGUIN CNM ENTERED: 06/28/24 [...] 0934 ----- ------- END OF REPORT Luciano Ogluin CNM LAB CYTOLOGY ORDERABLES F inal Result [facility] [address] [place] [phone] * Hm Colonoscopy (09/05/2021 11:04 [...] DIGITAL UBALDO SCR MAMMO 1 Inez Dewitt SQL SERVER DBA DEVELOPER IMG BI PROCEDURES Final Result from Last 3 Months or Most Recently Relevant to Health Maintenance Insurance [employer] [id number] * Guarantor: Vikki Willis Account Type Relation to Patient Date of Phone Billing Address Personal/Family Self [address] Care Teams Tile Designer Relationship Specialty Start Date End Date Bradford Edge ANP [address] [place] [address] PCP - General Family Medicine 11/16/20 Eduarda Krishnan MD [address] [place] [address] Hematology and Oncology 06/01/24RicoJune [address] [place] [address] 3rd [place] [address] 06/01/24 Smiley Nunez 01/10/25
--- OUTSIDE RECORDS SUMMARY | 2025-03-29 15:09 | XMS_ITS | Encounter Summary ---
Author Organization [employer] Address [address] [facility] [address] [address] Care Team Providers Care Assistant Professor Of Physics Name Role Phone April Dave Primary Care Provider [phone] Eduarda Krishnan MD Unavailable [phone] June Unavailable Reason for Visit * Reason Onset Date Comments Triage 08/22/2022 Encounter Details Date Type Department Care Team ([facility] st Contact Info) Description 08/22/2022 Telephone [facility] [address] [place] [address] April Dave ANP [address] [place] [address] Triage Social History Tobacco Use Types Packs/Day [...] accepted this outcome Please contact pt at [phone] documented in this encounter Plan of Treatment Upcoming Encounters Date Type Department Care Team (Late st Contact Info) Description 04/24/2025 2:00 PM EST Office Visit [facility] [address] [place] [address] Martha Vaz NP [address] [place], [place] [phone] documented as of this encounter Visit Diagnoses Not on filedocumented in this encounter Care Teams Assistant Professor Of Physics Relationship Specialty Start Date End Date April Dave ANP [address] [place], [place] [phone] PCP - General Family Medicine 11/16/20 Eduarda Krishnan MD [address] [place] [address] Hematology and Oncology 06/01/[address] [place] [address] Drive 3rd [place] [address] 06/01/24 Smiley Nunez 01/10/25 documented as of this encounter
--- OUTSIDE RECORDS SUMMARY | 2025-03-29 15:09 | XMS_ITS | Encounter Summary ---
Author Organization [employer] Address [address] [facility] 7t [place] [address] Care Team Providers Care Environmental Engineer Scientist Name Role Phone April Dave Primary Care Provider [phone] Eduarda Krishnan MD Unavailable [phone] June Unavailable Encounter Details Date Type Department Care Team (Late st Contact Info) Description 10/09/2023 Orders Only [facility] [address] [place] [address] ProviderRubina MD Social History Tobacco Use Types [...] Description 04/24/2025 2:00 PM EST Office Visit [facility] [address] [place], [place] [phone] Martha Vaz NP 230 [place], [place] [phone] documented as of this encounter Procedures Procedure Name Priority Date/Time Associated Diagnosis Comments HM COLONOSCOPY Routine 09/05/2021 11:04 AM EDT documented in this encounter Results * Hm Colonoscopy (09/05/2021 11:04 AM EDT) us Historical Provider HEALTH MAINTENANCE Final Result documented in this encounter Visit Diagnoses Not on filedocumented in this encounter Care Teams Environmental Engineer Scientist Relationship Specialty Start Date End Date April Dave ANP 230 [place] [address] PCP - General Family Medicine 11/16/20 Eduarda Krishnan MD [address] [place] [address] Hematology and Oncology 06/01/24June [address] 3rd [place] [address] 06/01/24 Smiley Nunez 01/10/25 documented as of this encounter
--- OUTSIDE RECORDS SUMMARY | 2025-03-29 15:09 | XMS_ITS | Data Portability ---
Author Organization [employer], [facility] Medical [facility] Address [address] [place] [address] Care Team Providers Care Pot Builder Name Role Phone Unavailable Referring Provider [phone] HIM CCA OTHER Assessment Encounter Date Assessment Date Assessment LastModified by Organization Details LastModified Time 02/23/2023 02/23/2023 As noted, we were called to see this patient regarding concerns of Evaluation in the field was performed by my receiving room clerk colleague, as noted above, I provided real-time [...] assessment and plan as documented by the receiving room clerk. I provided real-time medical direction for this [...] in the field was performed by my receiving room clerk colleague, as noted above, I provided real-time [...] Assessment and Plan as documented by the Veneer Splicer. We discussed the diagnostic uncertainty of home [...] to call 911- verbalized understanding of instruction [email or web address] Not available 03/08/2024 00:03:32 07/27/2024 07/27/2024 Impression: [...] pill or obstructions, low suspicion for perforation, INTELLIGENCE SENIOR SERGEANT, RPA, abscess, meningitis. Unclear if this is [...] of any new or worsening serious symptoms [email or web address] Not available 07/27/2024 13:02:59 Plan of Treatment Reminders Order Date Submit Date Provider Last Modified By Organization Details Last Modified Time Details Appointments None recorded. Lab rapid SARS CoV 2 Ag, QL IA, respiratory specimen 2024 025 [facility], [address] [place] [address], [id number] 5 14:30:50 rapid flu (A+B) [address], [phone] 5 14:28:58 rapid strep group A, throat [address], [phone] 5 14:32:11 BMP, serum or plasma 2023 024 [email or web address] 0 [facility], [address] [place] [address], [id number] 15:47:26 Referral None recorded. Procedures None recorded. Surgeries None recorded. Imaging None recorded. Medication Orders furosemide 10 mg/mL injection solution 2023 024 [email or web address] 0 [facility], [address] [place] [address], [id number], 4 15:47:26 potassium chloride ER 20 mEq tablet,exte nded release 2023 024 [email or web address] 0 [facility], [address] [place] [address], [id number], 4 15:47:26 azithromyci n 250 mg tablet 2022 023 [facility], [address] [place] [address], [id number], 3 12:11:17 Patient TargetsNo targets recorded. Patient [...] Name and Address Organization Details Recorded Time 10671 acetamino phen / hydrocodo ne medicatio n Not available Not available Not available 01/30/2024 50620 2 RxNorm Not Available [facility] - production 4 17:29:12 19821 hydrocodo ne Not available Not available Not available Not available 03/07/2024 5489 RxNorm Not Available [facility] - production 4 12:41:10 96337 tramadol medicatio n Not available Not available Not available 03/07/2024 38338 RxNorm Not Available [facility] 4 12:41:10 51233 lisinopri l medicatio n Not available Not available Not available 03/07/2024 04404 RxNorm Not Available [facility] - production 4 12:41:10 7573 albuterol medicatio n Not available Not available Not available 01/26/2024 435 RxNorm Not Available [facility] 4 03:38:23 Medications Name Sig Start Date Stop Date Status Note LastModified by Organization Details LastModified Time medbox status USE DIRECTED active Not Available Not Available No t Available pulse oximet airial uv7413 USE TWICE DAILY DIRECTED active Not Available [...] Available Not Available No t Available [employer] [place] Lite kit USE DIRECTED active Not Available [...] Updated DateTime 5 97.5 [degF] 144.78 cm 32870.6 72 g 98 % 18 /min 110 /min 108/66 mm[Hg] Not Available [facility] - production 5 12:53:59 Date Recorded Body temperature Oxygen saturation Respiratory rate Heart rate Systolic And Diastolic Provider Name and Address Organization Details Last Updated DateTime 4 96.3 [degF] 98 % 18 /min 90 /min 123/98 mm[Hg] Not Available [facility] - production 4 12:44:04 Date Recorded Respiratory rate Heart rate Body height Oxygen saturation Body weight Body temperature Systolic And Diastolic Provider Name and Address Organization Details Last Updated DateTime 4 20 /min 97 /min 147.32 cm 99 % 71310.6 96 g 98.1 [degF] 116/77 mm[Hg] Not Available [facility] - production 4 19:02:23 Date Recorded Body weight Respiratory rate Heart rate Oxygen saturation Body height Body temperature Systolic And Diastolic Provider Name and Address Organization Details Last Updated DateTime 3 34559.5 36 g 18 /min 98 /min 97 % 147.32 cm 100.6 [degF] 141/53 mm[Hg] Not Available [employer] [facility] 3 20:20:15 Date Recorded Body height Body mass index (BMI) Body weight Provider Name and Address Organization Details Last Updated DateTime 03/07/2024 147.32 cm 26.8 kg/m2 16872.82 g Rosario Maguire MD [address] [place] [address],[address], [place], [address], [place] - [facility] 03/07/2024 15:26:21 Date Recorded Heart rate Body temperature Oxygen saturation Respiratory rate Systolic And Diastolic Provider Name and Address Organization Details Last Updated DateTime 4 96 /min 96.9 [degF] 98 % 18 /min 151/86 mm[Hg] Not Available [employer] 4 15:08:50 Social History None recorded. Functional [...] Diagnosis Note 4031 Reed Carlos MD [facility] [address] [place] [phone] 12/13/2021 20:36:20 12/20/2021 13:30:15 Cellulitis [id number] L03.90 [id number] Yelena Landaverde MD Main - [facility] [address] [place] [phone] 02/23/2023 20:14:26 02/23/2023 23:04:54 Community acquired pneumonia 795037280 J18.9 Acute exac erbation of chronic obstructive pulmonary disease 132753235 J44.1 [id number] Winsome Díaz MD Main - [facility] [address] [place] [phone] 10/24/2023 12:43:55 07/14/2024 20:07:33 Cat bite 586857749 W55.01XA 65482 Yelena Landaverde MD Main - [facility] [address] [place] [phone] 01/30/2024 19:02:19 02/01/2024 00:29:21 Abdominal pain 55204335 R10.9 Suprapubic pain 93967839 6 R10.30 94817 Rosario Maguire MD Main - [facility] [address] [place] [phone] 03/07/2024 15:08:39 03/08/2024 17:25:37 Peripheral edema 022759262 R60.9 No clinical evidence of CHFBoth legs more edematous than usual, right foot is more swollen than left/no history of trauma but no cords /Homans negative so DVT is unlikely. No warmth or erythema to suggest cellulitis . Primary care team: If patient continues to have pain/sts she will need imaging studies. Patient is quite anemic- her [facility] notes from 02/20 through 02/22/2024 state [...] return to 2000 mg per 24 hours 17414 Deni Santos MD Main - [facility] [address] [place] [address] 07/27/2024 12:53:57 07/27/2024 14:12:25 Pain in throat 994996440 J02.9 88094 Health Concerns Section Related Observation LastModified by Organization Sandia[facility] ls LastModified Time None Recorded Concern Status LastModified by Organization Details LastModified Time None Recorded Advance Directives Directive None Recorded Payers Insurance Date Sequence Insurance Name Policy Number Policy Sepulveda Covered Member ID Sepulveda Member ID Guarantor Name 02/18/[address] [facility] - DOS PRIOR TO 2022 - DUAL ELIGIBLE (MEDICARE REPLACEMENT/AD VANTAGE - HMO) Vikki Willis [id number] Vikki Willis 07/27/[address] [facility] - DOS ON OR AFTER 2022 - DUAL ELIGIBLE - DETENTION OPTIONS AND ONE CARE (MEDICARE REPLACEMENT/AD VANTAGE - HMO) Vikki Willis [id number] Vikki Willis Notes Date Note Type Note [...] CRC RN DID NOT NEED FURTHER INFO [facility] HPI: runny nose, clear mucous, x 1 mo. seen by PCP, given cough medicine with codeine. last appt w PCP was 1 wk ago. still having productive cough. started corcidin last week 5d ago. using combivent and flovent. no sore throat, and some chest congestion Yelena Landaverde MD [address] [facility],[address], [place], [address], [employer] 02/23/2023 20:29:29 10/24/2023 text/html CRC Nurse Triage Notes (Elizabeth Grijalva): Reason For Request: Patient was bit on the arm by her Kitten. Chief Complaints: Injury PMH: COPD/Asthma, Diabetes, Hypertension Allergies: Albuterol Other Allergies: Vicodin Comments: Education Technician verified the member's name//address and phone number.Member [...] .................... .................... .................... .................... .................... .................... . Veneer Splicer Note From Destini Castro: Pt with significant bite/scratch almendarez from kitten while both kittens in a fight. Kitten not yet fully vaccinated. A&ox3, vss, afebrile; one puncture site actively bleeding at present. C consulted, pt agreeable to go to ER by POV to have wounds irrigated and evaluated for stitches. Hand and wrist wrapped with clean dry dressing. Red flags reviewed. Veneer Splicer Allergies: Albuterol .................... .................... .................... .................... .................... .................... .................... . Disposition: Fulfilled Winsome Díaz MD [address] [place] [address],[address], [place], [address] [employer] 10/24/2023 13:07:25 01/30/2024 text/html CRC Nurse Triage Notes (Figueroa Sanders): Reason For Request: Pt reporting problem going number number 2 primarily but notes having problems going number 1 as well Chief Complaints: Abdominal pain PMH: COPD/Asthma, Hypertension, Anxiety Disorder, Chronic Kidney Disease, Depression, Epilepsy/Seizure Disorder, Diabetes Mellitus Type 2 Comments: Education Technician verified the Pt.'s name//address and phone number. [...] scene and unable to make contacted - [place] PD contact and will be dispatching a unit [facility] HPI: pain w trying to urinate, like she has to push. some constipation. .................... .................... .................... .................... .................... .................... .................... . Veneer Splicer Note From Bob Ac: Pt chief complaint today of lower abdominal pain most closely related to the Pubic/perineal area. Pt states that she has been having this problem for 4 days prior to [facility] visit. Pt states she has been [...] of higher ability for more testing that [facility] cannot provide. Pt is also educated on the possible negative effects that can occur from waiting up t and including possible . Pt decides to wait till tomorrow for further diagnostics and treatmentPt is educated on red flag S&S and informed to call emergency services if any present. .................... .................... .................... .................... .................... .................... .................... . [facility] Consulted: Yelena Landaverde .................... .................... .................... .................... .................... .................... .................... . Disposition: Fulfilled Yelena Landaverde MD [address] [place] [address],[address] [facility], [place], [address], [employer] 01/30/2024 19:47:48 03/07/2024 text/html ROS as noted [...] come into walk in center. Agrees to [facility] for evaluation. Confirmed demographics and allergies. .................... .................... .................... .................... .................... .................... .................... . CRC Nurse Triage Notes (Treasure Childers): Chief Complaints: Swelling PMH: COPD/Asthma, Hypertension, Anxiety Disorder, Chronic Kidney Disease, Depression, Epilepsy/Seizure Disorder, Diabetes Mellitus Type 2, Asthma Comments: [facility] reviewed Veneer Splicer Organization Information for [facility] Legal Name: [facility] Transportation Address: [address] [place] [address], [place] [address], Dance Coach: Douglas Bucio MD CLIA No.: [id number] Veneer Splicer POC Test Results from James Greene [facility] (15:03:32) pH: 7.39 pH units pCO2: 32.2 mmHg pO2: 41.0 mmHg Na: 135 mmol/L K: 3.7 mmol/L iCa: 1.21 mmol/L Cl: 106 mmol/L TCO2: 19.2 mEq/L Hct: 28 % Hb: 9.5 g/dL Glu: 103 mg/dL Lac: 1.3 mmol/L Cr: 0.77 mg/dL BUN: 7 mg/dL A .................... .................... .................... .................... .................... .................... .................... . Veneer Splicer Note From James Greene: This 63-year-old female [...] .................... .................... .................... .................... .................... .................... . [facility] Consulted: Rosario Maguire .................... .................... .................... .................... .................... .................... .................... . Disposition: Fulfilled SEGMD: Patient denies trauma/she denies history of gout. Although her right foot is more swollen than the left she reports her legs are much more edematous than baseline and they are painful. She was hospitalized at [facility] the week of 02/20 with a potassium of 2 diverticulitis and a UTI. Her hemoglobin was noted to go from 11 down to 8 during that visit with no history of GI bleeding. She also has a PMH including but not limited to: Asthma/COPD/HTN/CHF/ /CKD/DM 2/epilepsy/(iron deficiency anemia, hyponatremia and hypokalemia per PCP note 03/03/2024)./Anxiety and depression. Rosario Maguire MD [address] [place] [address],[address], [place], [address], [employer] 03/08/2024 00:13:48 07/27/2024 text/html ROS as noted in the HPI HPI: Member took her morning meds, then c/o sore throat and mild congestion.Member unsure if it was one of the medications that irritated her throat or caused some difficulty swallowing. c/o mild cough and sore throat. Member is denying any other complaints.: note- info provided by Paula from [facility] .................... .................... .................... .................... .................... .................... [...] signs of when to seek emergency care. Veneer Splicer Organization Information for Kayleen Castellanos [employer] Legal Name: [employer]. Address: [address] [place] [address], Dance Coach: Bran De La Rosa MD CLIA No.: [id number] Veneer Splicer POC Test Results from Kayleen Castellanos Rapid COVID antigen (12:52:02) COVID: - Rapid influenza antigen (12:52:03) Flu: - Rapid strep test (12:52:27) Strep: - .................... .................... .................... .................... .................... .................... .................... . Veneer Splicer Note From Kayleen Castellanos: Sent to a [...] covid/flu test: neg; Rapid strep test: neg; [facility] consulted and pt is advised to monitor symptoms. Red flags discussed. Pt has no further questions. [facility] Lab Orders: rapid SARS CoV 2 Ag, QL IA, respiratory specimen: Performed rapid flu (A+B): Performed rapid strep group A, throat: Performed .................... .................... .................... .................... .................... .................... .................... . [facility] Consulted: Deni Santos .................... .................... .................... .................... .................... .................... .................... . Disposition: Fulfilled Deni Santos MD [address] [facility],[address], [place], [address], [employer] 07/27/2024 13:51:25 OBGyn Episode No OBEpisode recorded.
--- OUTSIDE RECORDS SUMMARY | 2025-03-29 15:09 | XMS_ITS | Clinical Summary ---
Author Organization [facility] Address [address] [place] [address] Phone Care Team Providers Care Filter Filler Name Role Phone April Dave NP Primary Care Provider [phone] Social History Tobacco Use Types Packs/Day Years [...] PM EST Office Visit [facility] [place] [address] [address] Terell Nicholas DPM [address] [address] Health Maintenance Due Date Last Done Comments [...] patient's age to complete this topic Insurance [facility] MEDICARE Member Subscriber Plan / Payer (Ef fective 2016-Present) Name:JOSE WILLIS Relation to Subscriber:Self Name:Jose Willis Payer ID:[id number] Group ID:[id number] Type:Not on file Address: [place] [address] [id number] Care Teams Filter Filler Relationship Specialty Start Date End Date April Dave NP [address] [place] [address] PCP - General 01/05/24
--- OUTSIDE RECORDS SUMMARY | 2025-03-29 15:09 | XMS_ITS | Encounter Summary ---
Author Organization [employer] Address [address] [facility] 7[address] [place] [address] Care Team Providers Care Business Editor Name Role Phone April Dave Primary Care Provider [phone] Eduarda Krishnan MD Unavailable [phone] June Unavailable Reason for Visit * Reason Onset Date Comments FYI 03/11/2023 Encounter Details Date Type Department Care Team ([facility] st Contact Info) Description 03/11/2023 Telephone [facility] 230 [place] [address] April Dave ANP [address] [place] [address] FYI Social History Tobacco Use Types Packs/Day [...] - 03/11/2023 1:30 PM EST [facility] pulmonology advising PCP, pt preferred [facility] and is booked for 04/29 @ 2:45 PM. documented in this encounter Plan of Treatment Upcoming Encounters Date Type Department Care Team (Late st Contact Info) Description 04/24/2025 2:00 PM EST Office Visit [facility] [address] [place] [address] Martha Vaz NP 230 [place] [address] documented as of this encounter Visit Diagnoses Not on filedocumented in this encounter Care Teams Business Editor Relationship Specialty Start Date End Date April Dave ANP [address] [place] [address] PCP - General Family Medicine 11/16/20 Eduarda Krishnan MD [address] [place] [address] Hematology and Oncology 06/01/24June [address] [place] [address] Drive 3rd [place] [address] 06/01/24 Smiley Nunez 01/10/25 documented as of this encounter
--- OUTSIDE RECORDS SUMMARY | 2025-03-29 15:09 | XMS_ITS | Patient Health Record ---
Author Organization [facility] Address [address] [facility] [place] [address] Care Team Providers Care Supervisor Assembly Name Role Phone Jose Cruz Unavailable [phone] Reason For Referral No Information Plan Of Treatment No Information
--- OUTSIDE RECORDS SUMMARY | 2025-03-29 15:09 | XMS_ITS | Encounter Summary ---
Author Organization [employer] Address 75 [facility] 7t [place] [address] Care Team Providers Care Safety Relief Valve Technician Name Role Phone April Dave Primary Care Provider [phone] Eduarda Krishnan MD Unavailable [phone] June Unavailable Reason for Visit * Reason Comments Med Refill Encounter Details Date Type Department Care Team (Late st Contact Info) Description 01/05/2023 Refill [facility] MED[facility]INE [address] [place] [address] April Dave ANP [address] [place] [address] Depressive disorder Social History Tobacco Use Types [...] Description 04/24/2025 2:00 PM EST Office Visit [facility] [address] [place] [address] Martha Vaz NP [address] [place] [address] documented as of this encounter Visit Diagnoses Diagnosis Depressive disorder Depressive disorder, not elsewhere classified documented in this encounter Care Teams Safety Relief Valve Technician Relationship Specialty Start Date End Date April Dave ANP [address] [place] [address] PCP - General Family Medicine 11/16/20 Eduarda Krishnan MD [address] [place] [address] Hematology and Oncology 06/01/24June [address] [place] [address] 3rd [place] [address] 06/01/24 Smiley Nunez 01/10/25 documented as of this encounter
--- OUTSIDE RECORDS SUMMARY | 2025-03-29 15:09 | XMS_ITS | Encounter Summary ---
Author Organization [employer] Address [address] [place] [address] [place] [address] Care Team Providers Care Fur Machine Operator Name Role Phone April Dave Primary Care Provider [phone] Eduarda Krishnan MD Unavailable [phone] June Unavailable Encounter Details Date Type Department Care Team (Late st Contact Info) Description 02/28/2022 Orders Only [facility] [address] [place] [address] Emily Pitts, RN [address] [place] [address] Social History Tobacco Use Types [...] Description 04/24/2025 2:00 PM EST Office Visit [facility] [address] [place] [address] Martha Vaz NP 230 [place] [address] documented as of this encounter Visit Diagnoses Not on filedocumented in this encounter Care Teams Fur Machine Operator Relationship Specialty Start Date End Date April Dave ANP [address] [place] [address] PCP - General Family Medicine 11/16/20 Eduarda Krishnan MD [address] [place] [address] Hematology and Oncology 06/01/24June [address] [place] [address] 3rd [place] [address] 06/01/24 Smiley Nunez 01/10/25 documented as of this encounter
--- OUTSIDE RECORDS SUMMARY | 2025-03-29 15:09 | XMS_ITS | Encounter Summary ---
Author Organization [employer] Address [address] [facility] [address] [place] [address] Care Team Providers Care Paving Stone Installer Name Role Phone April Dave Primary Care Provider [phone] Eduarda Krishnan MD Unavailable [phone] June Unavailable Reason for Visit * Reason Onset Date Comments Med Refill 05/27/2024 Encounter Details Date Type Department Care Team (Late st Contact Info) Description 05/27/2024 Telephone [facility] [address] [place] [address] April Dave ANP [address] [place] [address] Med Refill Social History Tobacco Use Types [...] EST Script was sent on 05/10/24 to [facility]. * Telephone Encounter - Remington Briggs - 05/27/2024 2:48 PM EST TC from pt requesting medication refill. Medications needing refill : rOPINIRole (Requip) 1 MG tablet To be sent to: [facility] - [place], [place] - [address] [facility] Pt states that she dosent have any more left. documented in this encounter Plan of Treatment Upcoming Encounters Date Type Department Care Team (Late st Contact Info) Description 04/24/2025 2:00 PM EST Office Visit [facility] [address] [place] [address] Martha Vaz NP [address] [place], [place] [phone] documented as of this encounter Visit Diagnoses Not on filedocumented in this encounter Additional Health Concerns Assessment Noted Time PHQ-9 Depression Total Score: 1 12/31/19 24 10:03 AM EDT documented as of this encounter Care Teams Paving Stone Installer Relationship Specialty Start Date End Date April Dave ANP [address] [place] [address] PCP - General Family Medicine 11/16/20 Eduarda Krishnan MD [address] [place] [address] Hematology and Oncology 06/01/[address] [place] [address] 3rd [place] [address] 06/01/24 Smiley Nunez 01/10/25 documented as of this encounter
--- OUTSIDE RECORDS SUMMARY | 2025-03-29 15:09 | XMS_ITS | Encounter Summary ---
Author Organization [employer] Address [address] [facility] [address] [place] [address] Care Team Providers Care Director Of Manufacturing Operations Name Role Phone April Dave Primary Care Provider [phone] Eduarda Krishnan MD Unavailable [phone] June Unavailable Reason for Visit * Reason Onset Date Comments Pre-op Exam 09/08/2024 Encounter Details Date Type Department Care Team (Late st Contact Info) Description 09/08/2024 Telephone [facility] [address] [place] [address] April Dave ANP [address] [place] [address] Pre-op Exam Social History Tobacco Use Types [...] - 09/08/2024 10:31 AM EDT [place] at [facility] agreed to pre op appointment on 09/23/24 at 2PM. Appointment reminder letter mailed * Telephone Encounter - Gwen Mckenzie - 09/08/2024 9:32 AM EDT Date of Surgery: 10/21/2024 Surgical procedure being done: left shoulder arthroscopy Type of anesthesia: General Lab needed: Yes EKG: Yes Surgeon's name: [facility] Facility name: [facility] Surgeon's office number: [phone] Surgeon's office fax number: [phone] Contact name (person you spoke with): [place] Last office note from surgeon requested: Yes Send Message to Jerri Holt and Serg Almanza documented in this encounter Plan of Treatment Upcoming Encounters Date Type Department Care Team ([facility] Contact Info) Description 04/24/2025 2:00 PM EST Office Visit [facility] [address] [place] [address] Martha Vaz NP [address] [place] [address] documented as of this encounter Visit Diagnoses Not on filedocumented in this encounter Additional Health Concerns Assessment Noted Time PHQ-9 Depression Total Score: 1 12/31/19 24 10:03 AM EDT documented as of this encounter Care Teams Director Of Manufacturing Operations Relationship Specialty Start Date End Date April Dave ANP [address] [place] [address] PCP - General Family Medicine 11/16/20 Eduarda Krishnan MD [address] [place] [address] Hematology and Oncology 06/01/24June [address] [place] [address] Drive 3rd [place] [address] 06/01/24 Smiley Nunez 01/10/25 documented as of this encounter
--- OUTSIDE RECORDS SUMMARY | 2025-03-29 15:09 | XMS_ITS | Clinical Summary ---
Author Organization [facility] Address [address] [place], [place] [id number] Phone Care Team Providers Care Correctional Supervising Cook Name Role Phone Unavailable Primary Care Provider [...] file Medical Devices Not on file Insurance [facility] ONE CARE MEDICARE REPLACEMENT YUDITH RIVERS [id number] [facility] CARE MEDICARE REPLACEMENT CARE MEDICARE REPLACEMENT [facility] CARE MEDICARE REPLACEMENT CARE MEDICARE REPLACEMENT MEDICARE REPLACEMENT CARE MEDICARE [place] [address] [place] [address] CARE MEDICARE REPLACEMENT Additional Source Comments The information contained in this document represents components of the legal health record. It is not the complete legal health record.[facility]
--- OUTSIDE RECORDS SUMMARY | 2025-03-29 15:09 | XMS_ITS | Encounter Summary ---
Author Organization [employer] Address [address] [facility] [address] [place] [address] Care Team Providers Care Chiller Tender Name Role Phone April Dave Primary Care Provider [phone] Edurada Krishnan MD Unavailable [phone] June Unavailable Reason for Visit * Reason Onset Date Comments Hospital Follow-up 12/16/2023 Encounter Details Date Type Department Care Team (Late st Contact Info) Description 12/16/2023 Telephone [facility] [address] [place] [address] April Dvae ANP [address] [place] [address] Hospital Follow-up Social History Tobacco Use Types [...] from pt requesting a HDF appt. Hospital: [facility] Date of admission: 12/09/23 Discharge date: 12/11/23 Diagnosed: Hand Surgery documented in this encounter Plan of Treatment Upcoming Encounters Date Type Department Care Team (Late st Contact Info) Description 04/24/2025 2:00 PM EST Office Visit [facility] [address] [place] [address] aMrtha Vaz NP [address] [place] [address] documented as of this encounter Visit Diagnoses Not on filedocumented in this encounter Care Teams Chiller Tender Relationship Specialty Start Date End Date April Dave ANP [address] [place] [address] PCP - General Family Medicine 11/16/20 Eduarda Krishnan MD [address] [place] [address] Hematology and Oncology 06/01/24 TrishaJune [address] [facility] [address] [place] [address] 06/01/24 Smiley Nunez 01/10/25 documented as of this encounter
--- OUTSIDE RECORDS SUMMARY | 2025-03-29 15:09 | XMS_ITS | Clinical Summary ---
Author Organization [facility] Address [address] [place] [address] [address] [place] [place] [phone] Phone Care Team Providers Care Building Economist Name Role Phone Inez Dewitt NP Primary Care Provider [phone] Allergies Active Allergy Reactions Criticality Noted Date [...] by mouth 2 Active UltiCare Mini Pen [place] 31G X 6 MM misc USE FOUR [...] Of [place] [address] [place] [address] Alan Nash MD from Last 3 Months [...] Visit [facility] [address] [place] [address] Alan Nash MD [address] [facility] [address] [place] [address] Health Maintenance Due Date Last Done Comments [...] 07/01/2023, 11/07/2014, 07/27/2014, Additional history exists [place] [address] ([id number]) [facility] ([id number]) Care Teams Building Economist Relationship Specialty Start Date End Date Inez Dewitt NP [address] [place] [address] PCP - General 04/09/20
--- OUTSIDE RECORDS SUMMARY | 2025-03-29 15:09 | XMS_ITS | Encounter Summary ---
Author Organization [facility] Address [address] [facility] [address] [place] [address] Phone Care Team Providers Care Roller Coaster Engineer Name Role Phone Unavailable Primary Care Provider Unavailabl e Encounter Details Date Type Department Care Team (Latest Contact Info) Description 06/25/2018 Ancillary Orders [facility] [address] [place] [address] [place] [address] Nba Bernstein, [address] [address] Chest pain, unspecified type Social History Tobacco [...] It is not the complete legal health record.[facility]
== END 2025-03-29 14:35 | disposition home or self-care (01) ==
LOC: HO.ENCR 13:50
PROVIDERS: PCP Nurse Practitioner Primary Care; Visit Provider Student in an Organized Health Care Education/Training Program
DX: E05.90 Thyrotoxicosis, unspecified without thyrotoxic crisis or storm (principal); E05.00 Thyrotoxicosis with diffuse goiter without thyrotoxic crisis or storm
CPT/HCPCS: 99214; G2211

== ENCOUNTER → 2025-03-29 13:50 | Outpatient (BNVA) | payer OTHER, SELFPAY | PROVIDERS: PCP Nurse Practitioner Primary Care; Visit Provider Student in an Organized Health Care Education/Training Program | DX: E05.00 Thyrotoxicosis with diffuse goiter without thyrotoxic crisis or storm (principal); I11.0 Hypertensive heart disease with heart failure; I50.9 Heart failure, unspecified; F17.210 Nicotine dependence, cigarettes, uncomplicated; Z79.899 Other long term (current) drug therapy | CPT/HCPCS: 99212 ==